=== PATIENT | female | born 1945 | race Caucasian/White ===

== ENCOUNTER 2016-05-15 12:37 | Inpatient (IN) | payer MEDICARE, OTHER ==
[~2016-05-15] VITALS: Ht 162.6 cm; Wt 83.5 kg
[2016-05-15] MEDS ORDERED: CEFTAROLINE FOSAMIL 600 MG VIAL (TEFLARO) As Ordered ONE (13:50)
[2016-05-15 14:01] LABS: BASO % 0.7 % (0.0-1.0); EOS # 0.3 K/mm3 (0.0-0.50); EOS % 4.1 % (0.0-3.0); LARGE UNSTAINED CELL # 0.1 K/mm3 (0.0-0.4); LARGE UNSTAINED CELL % 1.9 % (0.0-4.0); LYMPH # 1.9 K/mm3 (1.5-4.5); LYMPH % 24.7 % (24.0-44.0); MEAN CORPUSCULAR HEMOGLOBIN 29.6 pg (27.0-33.0); MEAN CORPUSCULAR HGB CONC 32.7 g/dl (32.0-36.5); MEAN CORPUSCULAR VOLUME 90.5 fl (80.0-96.0); MONO # 0.5 K/mm3 (0.0-0.8); MONO % 6.9 % (0.0-5.0); NEUTROPHILS # 4.6 K/mm3 (1.8-7.7); NEUTROPHILS % 61.7 % (36.0-66.0); PLATELET COUNT, AUTOMATED 213 k/mm3 (150-450); RED CELL DISTRIBUTION WIDTH 12.3 % (11.5-14.5); WHITE BLOOD COUNT 7.5 K/mm3 (4.0-10.0)
[2016-05-15] MEDS ORDERED: GLUCAGON FOR INJ 1 MG VIAL (J1610) SC PRN (14:15)
[2016-05-15] MEDS ORDERED: DEXTROSE 50% 50 ML SYRINGE IV PRN (14:15)
[2016-05-15] MEDS ORDERED: GLUCOSE 4 GM CHEW TABLET PO PRN (14:15)
[2016-05-15] MEDS ORDERED: ACETAMINOPHEN TAB 650MG DOSE (2X325MG) PO PRN (14:15)
[2016-05-15] MEDS ORDERED: CEFTAROLINE FOSAMIL 200 MG in D5W 50 ML IV SCH (14:15)
[2016-05-15 14:24] LABS: ANION GAP 9 MEQ/L (8-16); BLOOD UREA NITROGEN 23 MG/DL (7-18); CALCIUM LEVEL 8.7 MG/DL (8.8-10.2); CARBON DIOXIDE LEVEL 27 MEQ/L (21-32); CHLORIDE LEVEL 105 MEQ/L (98-107); CREATININE FOR GFR 0.83 MG/DL (0.55-1.02); GLOMERULAR FILTRATION RATE > 60.0 (>45); GLUCOSE, FASTING 179 MG/DL (80-110); POTASSIUM SERUM 3.9 MEQ/L (3.5-5.1); SODIUM LEVEL 141 MEQ/L (136-145)
[2016-05-15] MEDS ORDERED: VITA500T88 PO (14:26)
[2016-05-15] MEDS ORDERED: AMLO5TAB2 PO (14:26)
[2016-05-15] MEDS ORDERED: LISI-538 PO (14:26)
[2016-05-15] MEDS ORDERED: FOLI1TAB2 PO (14:26)
[2016-05-15] MEDS ORDERED: ACET-654 PO (14:26)
[2016-05-15] MEDS ORDERED: FERR325T3 PO (14:26)
[2016-05-15] MEDS ORDERED: MELA5TAB14 PO (14:26)
[2016-05-15] MEDS ORDERED: ASPI81TA85 PO (14:26)
[2016-05-15] MEDS ORDERED: INSULANT SC (14:26)
[2016-05-15] MEDS ORDERED: HUMA100I3 SC (14:29)
--- NOTE | 2016-05-15 16:30 | REP ---
Duplex extremity venous ultrasound: Right lower extremity. History: Deformity and swelling. Findings: The deep veins are anechoic and fully compressible from the groin to the popliteal fossa in the right lower extremity. Color flow imaging is homogeneous. Spectral Doppler interrogation demonstrates intact respiratory variation in flow and normal manual augmentation of flow. There is no evidence of deep vein thrombosis. Impression: Negative right lower extremity duplex venous ultrasound. No evidence of deep vein thrombosis. Signed by Hima Madsen MD 05/15/2016 04:21 P
--- NOTE | 2016-05-15 16:58 | EDDOCDS ---
Physician Documentation [facility] Name: Derrick Rodriguez Age: 70 yrs Sex: Female : 1945 Arrival Date: 05/15/2016 Time: 12:37 Bed MRI Private MD: NO PRIMARY PHYSICIAN, . Disposition: 05/15/16 13:51 Hospitalization ordered by Eric Benson for Inpatient Admission. Preliminary diagnosis is Cellulitis of right lower limb. - Bed requested for 5 Gentile. - Status is Inpatient Admission. jmk - Condition is Stable. - Problem is new. - Symptoms are unchanged. Historical: - Allergies: Latex (Rash); - Home Meds: 1. docusate sodium 100 mg Oral cap 2 times per day 2. Probiotic 3 billion cell oral cap daily 3. heparin (porcine) 5,000 unit/mL (1 mL) injection crtg 4. clindamycin iv three times a day 5. ciprofloxacin 400mg IV twice a day twice a day 6. amlodipine 5 mg Oral tab once daily 7. aspirin 81 mg Oral tab 1 tab once daily 8. ferrous sulfate 325 mg (65 mg iron) Oral TbEC daily 9. folic acid 1 mg Oral tab once daily 10. lisinopril 10 mg Oral tab 1 tab once daily 11. Lantus 100 unit/mL Sub-Q soln 30 unit 12. Vitamin C 500 mg Oral chew daily 13. Lasix 20 mg Oral tab once daily 14. Insulin: Novolin R Sub-Q 15. melatonin 5 mg Oral cap daily 16. Maalox 200-200 mg Oral chew 17. Tylenol 325 mg Oral tab every 3 hours - PMHx: Diabetes - NIDDM: uncontrolled; - PSHx: ; right ankle pins and screws removed. right elbow pin; - Social history: Smoking status: Patient states former smoker of tobacco. No barriers to communication noted, The patient speaks fluent Congolese. - Family history: Not pertinent. - : The pt / caregiver states he / she is not on anticoagulants. Home medication list is obtained from the patient. - Exposure Risk Screening:: None identified. Vital Signs: 05/15 12:39 BP 159 / 89; Pulse 89; Resp 18 S; Temp 97.3; Pulse Ox 98% on R/A; Weight 83.46 kg / 184 dd6 lbs (R); Height 5 ft. 4 in. (162.56 cm) (R); 16:52 BP 151 / 70; Pulse 86; Resp 16; Temp 98.7; Pulse Ox 99% on R/A; Pain 2/10; jmk 12:39 Body Mass Index 31.58 (83.46 kg, 162.56 cm) dd6 MDM: 13:36 IV Saline Lock ordered. br1 13:38 CBC with Diff Ordered. EDMS 13:38 BMP Ordered. EDMS 13:38 BED REQUEST+ADM ordered. EDMS 13:38 Ultrasound LE Unilateral R/O DVT Ordered. EDMS 13:41 MRI Screening Tool - Place on chart, inform RN ordered. br1 13:41 -Blood Culture (Adults Only), peripheral from different site, or from device/port/PICC br1 etc. if present ordered. 13:42 -Blood Culture Ordered. EDMS 13:42 ESR Ordered. EDMS 13:42 Ceftaroline Fosamil 600 mg IV at calculated rate once over 30 mins; reconstitute with br1 20mL NS or SW, then dilulte in 50mL of NS, D5W or LR ordered. 13:58 C REACTIVE PROTEIN QUANTITATIV Ordered. EDMS 14:07 -Blood Culture (Adults Only), peripheral from different site, or from device/port/PICC jmk etc. if present complete. 14:08 MRI Screening Tool - Place on chart, inform RN complete. kr3 14:16 Admission / Observation Status ordered. EDMS 14:17 CONSISTENT CARBOHYDRATES ordered. EDMS 14:18 PHYSICAL THERAPY EVAL & TREAT ordered. EDMS 14:29 CBC with Diff Reviewed. br1 14:29 BMP Reviewed. br1 14:29 C REACTIVE PROTEIN QUANTITATIV Reviewed. br1 14:50 Financial registration complete. mm15 14:50 [facility] Payment Agreement was scanned into [employer] and attached to record. mm15 14:52 MRI-Foot W/O FOL WITH Ordered. EDMS 16:[address] Ordered. EDMS Administered Medications: 14:08 Drug: Ceftaroline Fosamil 600 mg [ceftaroline fosamil 600 mg intravenous solution] liam Route: IV; Rate: calculated rate; Infused Over: 30 mins; Site: left hand; Signatures: Dispatcher [employer] EDMS Suresh RudolphRN Eladio French RN Iman Tai RN RN kr3 Jean Claude Espitia MD MD br1 Rhoda Vance RN RN rs3 [employer] mm15 The chart was reviewed and I authenticate all verbal orders and agree with the evaluation and treatment provided.Corrections: (The following items were deleted from the chart) 13:58 13:42 C REACTIVE PROTEIN QUANTITATIV+LAB ordered. EDMS EDMS 14:52 14:34 MRI FOOT WITH CONTRAST ordered. EDMS EDMS 16:03 13:42 MRI-Foot without contrast+MR ordered. EDMS EDMS Attachments: 14:50 [facility] Payment Agreement mm15 MTDD
--- NOTE | 2016-05-15 16:58 | EDDOCDS ---
Nurse's Notes [facility] Name: Derrick Rodriguez Age: 70 yrs Sex: Female : 1945 Arrival Date: 05/15/2016 Time: 12:37 Bed MRI Private MD: NO PRIMARY PHYSICIAN, . Diagnosis: Cellulitis of right lower limb Presentation: 05/15 12:55 Presenting complaint: Patient states: Was seen in [facility] for right foot rs3 infection/pain. Was seen by Ortho today. Dr. Matthieu Rizzo sent her to ER for admission. The patients lower extremity has been treated at [facility]. Adult Sepsis Screening: The patient does not have new or worsening altered mentation. Patient's respiratory rate is less than 22. Systolic blood pressure is greater than 100. Patient has a qSOFA score of 0- Negative Sepsis Screen. Suicide/Homicide risk assessment- the patient denies having any suicidal and/or homicidal ideations and does not present with any other emotional, behavioral or mental health complaints. 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 Transition of care: patient was not received from another setting of care. 12:55 Acuity: DIANDRA Level 3 rs3 12:55 Method Of Arrival: Wheelchair rs3 Triage Assessment: 13:06 General: Appears in no apparent distress. Pain: Location: right foot. Musculoskeletal: rs3 Reports Pain is 8 out of 10 on a pain scale. Historical: - Allergies: Latex (Rash); - Home Meds: 1. docusate sodium 100 mg Oral cap 2 times per day 2. Probiotic 3 billion cell oral cap daily 3. heparin (porcine) 5,000 unit/mL (1 mL) injection crtg 4. clindamycin iv three times a day 5. ciprofloxacin 400mg IV twice a day twice a day 6. amlodipine 5 mg Oral tab once daily 7. aspirin 81 mg Oral tab 1 tab once daily 8. ferrous sulfate 325 mg (65 mg iron) Oral TbEC daily 9. folic acid 1 mg Oral tab once daily 10. lisinopril 10 mg Oral tab 1 tab once daily 11. Lantus 100 unit/mL Sub-Q soln 30 unit 12. Vitamin C 500 mg Oral chew daily 13. Lasix 20 mg Oral tab once daily 14. Insulin: Novolin R Sub-Q 15. melatonin 5 mg Oral cap daily 16. Maalox 200-200 mg Oral chew 17. Tylenol 325 mg Oral tab every 3 hours - PMHx: Diabetes - NIDDM: uncontrolled; - PSHx: ; right ankle pins and screws removed. right elbow pin; - Social history: Smoking status: Patient states former smoker of tobacco. No barriers to communication noted, The patient speaks fluent Tajik. - Family history: Not pertinent. - : The pt / caregiver states he / she is not on anticoagulants. Home medication list is obtained from the patient. - Exposure Risk Screening:: None identified. Assessment: 13:17 General: Appears in no apparent distress, comfortable, Behavior is reports feeling very kr3 frustrated due to process. Patient states she is here for admission and 'no one knows anything'.. Pain: Denies pain. Respiratory: Respiratory effort is even, unlabored. 13:52 Reassessment: feeling more calm. Dr benson in speaking with patient. kr3 15:38 General: Appears right foot swollen with diffuse redness. states little change in jmk overall appearance with recent admission at [facility].. 16:52 General: Appears Improved demeanor. Now is receptive to course of care. Incontinent of jmk small amount of formed stool. cleansed and repositioned. blistered area to posterior right foot that is without drainage. diffuse redness and swelling noted. 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 States pain is " not that much 2/10. sl remains intact.. Vital Signs: 12:39 BP 159 / 89; Pulse 89; Resp 18 S; Temp 97.3; Pulse Ox 98% on R/A; Weight 83.46 kg (R); dd6 Height 5 ft. 4 in. (162.56 cm) (R); 16:52 BP 151 / 70; Pulse 86; Resp 16; Temp 98.7; Pulse Ox 99% on R/A; Pain 2/10; jmk 12:39 Body Mass Index 31.58 (83.46 kg, 162.56 cm) dd6 Vitals: 12:39 Log In Time: May 15, 2016 at 12:38. dd6 ED Course: 12:38 Patient visited by Jadiel Cruz PCA. dd6 12:38 NO PRIMARY PHYSICIAN, . is Private Physician. dd6 12:38 Patient moved to Waiting dd6 12:39 Patient moved to Pre RCE dd6 12:59 Triage Initiated rs3 13:08 Patient moved to I9 / 22 rs3 13:17 Patient visited by Iman Monsivais RN. kr3 13:21 Jean Claude Espitia MD is Attending Physician. br1 13:36 Patient visited by Jean Claude Espitia MD. br1 13:50 Patient moved to Ultrasound am10 13:51 Eric Benson is Hospitalizing Provider. br1 13:51 Patient moved to I9 / 22 am10 13:51 Patient moved to Ultrasound am10 13:51 ESR Sent. kr3 13:51 BMP Sent. kr3 13:51 CBC with Diff Sent. kr3 13:51 Inserted saline lock: 20 gauge in left hand and blood collected. The patient tolerated kr3 the procedure well. 13:53 Patient moved to I9 / 22 am10 14:07 C REACTIVE PROTEIN QUANTITATIV Sent. jmk 14:47 Patient moved to MRI dem1 14:50 [facility] Payment Agreement was scanned into [employer] and attached to record. mm15 16:52 The patient / caregiver is instructed regarding the plan of care and ED course. jmk 16:52 No procedures done that require assistance. liam Administered Medications: 14:08 Drug: Ceftaroline Fosamil 600 mg [ceftaroline fosamil 600 mg intravenous solution] liam Route: IV; Rate: calculated rate; Infused Over: 30 mins; Site: left hand; Order Results: Lab Order: CBC with Diff; SPEC'M 05/15/16 13:46 Test: WHITE BLOOD COUNT; Value: 7.5; Range: 4.0-10.0; Units: K/mm3; Status: F Test: RED BLOOD COUNT; Value: 3.83; Range: 4.00-5.40; Abnormal: Below low normal; Units: M/mm3; Status: F Test: HEMOGLOBIN; Value: 11.3; Range: 12.0-16.0; Abnormal: Below low normal; Units: g/dl; Status: F Test: HEMATOCRIT; Value: 34.7; Range: 36.0-47.0; Abnormal: Below low normal; Units: %; Status: F Test: MEAN CORPUSCULAR VOLUME; Value: 90.5; Range: 80.0-96.0; Units: fl; Status: F Test: MEAN CORPUSCULAR HEMOGLOBIN; Value: 29.6; Range: 27.0-33.0; Units: pg; Status: F Test: MEAN CORPUSCULAR HGB CONC; Value: 32.7; Range: 32.0-36.5; Units: g/dl; Status: F Test: RED CELL DISTRIBUTION WIDTH; Value: 12.3; Range: 11.5-14.5; Units: %; Status: F Test: PLATELET COUNT, AUTOMATED; Value: 213; Range: 150-450; Units: k/mm3; Status: F Test: NEUTROPHILS %; Value: 61.7; Range: 36.0-66.0; Units: %; Status: F Test: LYMPH %; Value: 24.7; Range: 24.0-44.0; Units: %; Status: F Test: MONO %; Value: 6.9; Range: 0.0-5.0; Abnormal: Above high normal; Units: %; Status: F Test: EOS %; Value: 4.1; Range: 0.0-3.0; Abnormal: Above high normal; Units: %; Status: F Test: BASO %; Value: 0.7; Range: 0.0-1.0; Units: %; Status: F Test: LARGE UNSTAINED CELL %; Value: 1.9; Range: 0.0-4.0; Units: %; Status: F Test: NEUTROPHILS #; Value: 4.6; Range: 1.8-7.7; Units: K/mm3; Status: F Test: LYMPH #; Value: 1.9; Range: 1.5-4.5; Units: K/mm3; Status: F Test: MONO #; Value: 0.5; Range: 0.0-0.8; Units: K/mm3; Status: F Test: EOS #; Value: 0.3; Range: 0.0-0.50; Units: K/mm3; Status: F Test: BASO #; Value: 0.0; Range: 0.0-0.2; Units: K/mm3; Status: F Test: LARGE UNSTAINED CELL #; Value: 0.1; Range: 0.0-0.4; Units: K/mm3; Status: F Lab Order: [facility]; SPEC'M 05/15/16 13:46 Test: GLUCOSE, FASTING; Value: 179; Range: 80-110; Abnormal: Above high normal; Units: MG/DL; Status: F Test: BLOOD UREA NITROGEN; Value: 23; Range: 7-18; Abnormal: Above high normal; Units: MG/DL; Status: F Test: CREATININE FOR GFR; Value: 0.83; Range: 0.55-1.02; Units: MG/DL; Status: F Test: GLOMERULAR FILTRATION RATE; Value: > 60.0; Range: >45; Status: F Test: SODIUM LEVEL; Value: 141; Range: 136-145; Units: MEQ/L; Status: F Test: POTASSIUM SERUM; Value: 3.9; Range: 3.5-5.1; Units: MEQ/L; Status: F Test: CHLORIDE LEVEL; Value: 105; Range: 98-107; Units: MEQ/L; Status: F Test: CARBON DIOXIDE LEVEL; Value: 27; Range: 21-32; Units: MEQ/L; Status: F Test: ANION GAP; Value: 9; Range: 8-16; Units: MEQ/L; Status: F Test: CALCIUM LEVEL; Value: 8.7; Range: 8.8-10.2; Abnormal: Below low normal; Units: MG/DL; Status: F Test Note: ; Units are mL/min/1.73 m2 Chronic Kidney Disease Staging per NKF: Stage I & II GFR >=60 Normal to Mildly Decreased Stage III GFR 30-59 Moderately Decreased Stage IV GFR 15-29 Severely Decreased Stage V GFR <15 Very Little GFR Left ESRD GFR <15 on 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 br1 16:52 Discharge Assessment: Patient awake, alert and oriented x 3. No cognitive and/or jmk functional deficits noted. Patient verbalized understanding of disposition instructions. patient administered narcotics - no. The following High Risk Discharge criteria are identified: None. Admitted to Med/Surg via stretcher, with chart. Condition: good. MRI Study completed. Property :Personal belongings accompany Pt. 16:57 Patient left the ED. liam Signatures: Suresh RudolphRN BRIDGET barrettk Iman Monsivais RN RN kr3 Delores Stuart am10 Jean Claude Espitia MD MD br1 Jadiel Cruz, CARE TEAM ASSISTANT CARE TEAM ASSISTANT dd6 Rhoda Vance RN RN rs3 Maximo Meredith dem1 [employer] mm15 Corrections: (The following items were deleted from the chart) 13:58 13:51 C REACTIVE PROTEIN QUANTITATIV+LAB sent. kr3 EDMS 15:41 15:38 General: Appears right foot swollen with diffuse redness. states little change in jmk overall appearance with recent admission at [facility].. liam MTDD
[2016-05-15 17:00] VITALS: BP 188/60
[2016-05-15] MEDS: HumaLOG INSULIN (NovoLOG) PER UNIT SC SCH ×2 (17:30→19:35)
--- NOTE | 2016-05-15 18:57 | REP ---
MRI study of the right foot without and with IV gadolinium: History: Question osteomyelitis of the foot. Redness and swelling of the right foot. No comparison radiographs available. Technique: Sagittal, axial and coronal imaging planes utilized. T1, proton density T2-weighted scans are obtained in the usual fashion with without fat saturation. Gadolinium enhancement dose: 15 mL of intravenous ProHance. MRI findings: There is a collapsed fracture through the calcaneus with some rotational deformity of the posterior fragment. The margins of the calcaneal fracture appears sharply circumscribed and perhaps sclerotic suggesting a subacute or chronic fracture with nonunion. There is fluid between the fragments and there is enhancement the edges of this irregular fluid collection on post gadolinium enhanced images. There is intraosseous enhancement on both sides of the calcaneal fracture and I cannot exclude calcaneal osteomyelitis. 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 A moderate sized ankle joint effusion is seen. There are very superficial fluid collections at the posterior aspect of the calcaneus and just above the level of the ankle joint posteriorly and laterally. By history these are vesicular intradermal lesions which apparently contain fluid. Diffuse skin thickening is seen in this region. Cortical and medullary bone signal intensity are otherwise normal. No other evidence of abscess. Impression: Collapsed fracture through the calcaneus with intervening fluid collection and soft tissue enhancement in the periphery of this fluid collection. There is intraosseous enhancement of the calcaneus and I cannot exclude calcaneal osteomyelitis. The calcaneal fracture appears to be a subacute or chronic. 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 Correlation with radiographs and possibly CT scanning may be helpful. Signed by Hima Madsen MD 05/16/2016 09:52 A
--- NOTE | 2016-05-15 19:11 | HPE ---
DATE OF ADMISSION: 05/15/2016 PRIMARY CARE PROVIDER: The patient is trying to establish with Dr. Bush; currently has no primary care provider. She sees Dr. Tucker for orthopedics. REASON FOR ADMISSION: Right ankle cellulitis. HISTORY OF THE PRESENT ILLNESS: The patient is a 70-year-old female with a past medical history significant for diabetes, hypertension, recent right ankle cellulitis that was treated at [facility]. The patient is a poor historian. Most of the history is obtained from the medical record and Dr. Tucker who had seen the patient early today and referred her to the emergency room. The patient was recently discharged from [facility] after she was treated for right foot cellulitis. She was found to have right ankle calcaneus fracture and was referred to Dr. Tucker after discharge from the hospital. He saw the patient today and was concerned about her right ankle with cellulitis and abscess formation, and referred her to the emergency room for workup to rule out osteomyelitis. She states she has been having memory problems and was supposed to be admitted at [facility]. She recently moved to the area since her brother and [id number] live here. She was going to be living with them for awhile until she gets a bed at the [facility]. Upon my exam, the patient denied any fevers or chills. Denied any chest pain, shortness of breath, was only complaining of right ankle pain and tenderness, as well as swelling. She could not remember when it started, but she knew that she was in the hospital for that infection. Denies any abdominal pain, nausea, vomiting or diarrhea. Denied any neurological deficits other than memory problems. REVIEW OF SYSTEMS: Twelve-point review of systems was obtained, all of which was negative except for those mentioned above. PAST MEDICAL HISTORY: Per record, significant for: Diabetes. Hypertension. Recent cellulitis but was treated with clindamycin and Cipro. PAST SURGICAL HISTORY: section. Right ankle pins and screws removed. SOCIAL HISTORY: The patient currently moved to the area where her brother and [id number] live. She was supposed to move into [facility] after discharge from [facility]. ALLERGIES: LATEX, reaction rash. HOME MEDICATIONS INCLUDE: - Tylenol 325 mg, takes two pills every 4 hours as needed for pain - amlodipine 5 mg by mouth daily - vitamin C 500 mg by mouth daily - aspirin 81 mg by mouth daily - iron 325 mg by mouth daily - folic acid 1 mg by mouth daily - Lantus 30 units at night - Humalog sliding scale before food and nightly - melatonin 5 mg at bedtime - lisinopril 20 mg by mouth daily FAMILY HISTORY: Noncontributory. PHYSICAL FINDINGS: VITAL SIGNS: Blood pressure 188/60, temperature 98.3, pulse 86, respiratory rate 18, pulse oximetry 96% on room air. HEENT: Pupils equal, round and reactive to light and accommodation. NECK: Supple. No jugular venous distention (JVD). LUNGS: Clear bilaterally. ABDOMEN: Soft, nontender, nondistended. EXTREMITIES: The patient appears to have a large right ankle cellulitis with abscess formation, partially draining with some swelling and erythema. NEUROLOGIC: Cranial nerves grossly intact. LABORATORY FINDINGS: WBC 7.5, hemoglobin 11.3, hematocrit 34.7, platelet count 213. Sodium 141, potassium 3.9, chloride 105, BUN 23, creatinine 0.83, C-reactive protein 6.79. Sedimentation rate 126. Ultrasound of her lower extremity was negative for deep vein thrombosis (DVT). MRI official read is still pending. ASSESSMENT AND PLAN: 1. Right ankle cellulitis with abscess formation. Cannot rule out osteomyelitis. We will start the patient on ceftaroline IV twice a day. The patient was on clindamycin, Cipro recently at [facility]. We will obtain wound cultures. The patient will be evaluated by orthopedics in the morning. MRI of the foot pending to rule out osteomyelitis. Activity per orthopedics. Non-weightbearing on the right until brace is ordered for patient. 2. History of hypertension. Will resume the patient's home medication. 3. Questionable right ankle calcaneus fracture. We will consult Dr. Tucker who had seen the patient earlier today in the office. Per his report, the patient does not need emergent surgery at this time. 4. History of diabetes, insulin-dependent. We will continue the patient's Lantus and insulin sliding scale before food and nightly. We will start the patient on a consistent carbohydrate diet. 5. Deep vein thrombosis (DVT) prophylaxis. Sequential compression devices (SCDs) while in bed.
--- NOTE | 2016-05-15 19:28 | CR ---
DATE OF CONSULTATION: 05/15/2015 REASON FOR CONSULTATION: Right foot redness and swelling. REQUESTING PHYSICIAN: Dr. Eric Benson, admitting hospitalist. HISTORY: She is a 70-year-old female seen in my office today as an outpatient visit, from an inpatient status at the [facility], found to have redness and swelling of the right ankle, with a radiograph showing a nondisplaced tibial fracture, some diffuse calcifications posteriorly of the right ankle, and some mid-foot collapse consistent with a Charcot arthropathy. She has a very high C-reactive protein (CRP) that has been rising but no fevers. 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 She does not remember any fall or injury to this ankle. She was initially admitted at [facility] on 04/22 for presumed congestive heart failure/pneumonia. Also was noted to have some cellulitis and swelling of both legs, right worse than left. Initially had an oral course of Keflex up until 05/01, and then on 05/10, it was noted that she had increasing redness and swelling of that right ankle without known injury. Ultrasound workup revealed no abscess. X-rays showed question of nondisplaced distal fibula fracture and tumoral calcinosis posteriorly about the ankle. It is because of that x-ray finding that she is sent to the orthopedic office as an outpatient to get this looked after. She had a CRP on 04/26 of , with the normal being 0-5, and then a repeat CRP on 05/10 of 57. She was on 05/10 started on intravenous (IV) Rocephin and vancomycin and then was switched to clindamycin and ciprofloxacin, and then yesterday, they felt that she was being clinically improved enough to go onto oral antibiotics and was planned for discharge to the [facility] facility, but because of the appearance of her ankle and her laboratory studies, it was felt she needs further evaluation and is being transferred here to [facility]. PAST MEDICAL HISTORY: Significant for insulin-dependent diabetes, and by her description of her symptoms, it appears that she has chronic diabetic neuropathy. Her other past medical history is high blood pressure, anxiety, history of some depressive episodes with suicidal ideations as of several months ago that apparently is not active. Also has a history of lactose intolerance. PAST SURGICAL HISTORY: She has had partial foot amputation on the left side as described. Has had section times two. Has had a breast biopsy of the left breast which was benign. She had a partial hysterectomy and apparently according to the record, Tammy Serna's 01/22/2014, has a history of open reduction, internal fixation (ORIF) of the right ankle, and ORIF of the right elbow. 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 She is from her . She has family members here locally. Both parents are and had diabetes and congestive heart failure, and she has a brother who has kidney cancer, a sister with diabetes, another brother with atrial fibrillation. Health survey and review of systems otherwise is noted in the medical records from the [facility]. MEDICATIONS: Her present medications are probiotic, subcutaneous heparin, docusate sodium, clindamycin, ciprofloxacin, amlodipine, baby aspirin, iron, folate, lisinopril, Lantus insulin, Lasix, NovoLog insulin, melatonin, Maalox, Tylenol as needed. She quit smoking several years ago. PHYSICAL EXAMINATION: When I examine her, alert and oriented female otherwise. Her vital signs here in the emergency room, blood pressure 159/89, pulse 89, respirations 18, temperature 97.3, oxygen saturation 98% on room air. Weight 83.46 kg. Her right lower extremity had a warm, swollen, red erythematous and somewhat indurated right ankle area, with no tenderness, but had a good dorsalis pedis pulse. She could dorsiflex and plantar flex her ankle with marked irritability, but she was basically insensate to light touch to all her toes on both feet with palpable pulses on the left foot. Left foot had great toe partial amputation, specifically the great toe. There is no other evidence of any infection of her upper extremities. LABORATORY DATA: Her white blood count on admission to [facility] was 7.5 with a hematocrit of 34.7. Glucose 179, BUN 23, creatinine 0.83. Sodium 141, potassium 3.9, chloride 105, bicarbonate 27, calcium 8.7. Her sed rate was 126. CRP 6.79. IMAGING: Radiographs as described taken at [facility], showing nondisplaced distal tibial fracture, some calcifications in the posterior aspect of the ankle and some mid-foot degenerative changes. IMPRESSION: This is a picture of Charcot arthropathy, but we need to evaluate and rule out osteomyelitis, and needs further evaluation and treatment. I talked to the hospitalist about this and would recommend an MRI scan and plain film xrays of her foot and ankle, possible three-phase bone scan and we may need also to get the help of Dr. Cesar from infectious disease to help us with the treatment recommendations for IV antibiotics if indeed this workup is consistent with osteomyelitis. Otherwise, in terms of her ankle, I would recommend nonweightbearing for the time being, keep it elevated, and request an evaluation from the electronic parts salesperson for a formal patellar tendon bearing right ankle-foot orthosis to unweight her foot with ambulation for half-way management of her diabetic arthropathy of her foot and ankle. We will follow her along once this workup has been completed. FREDA
[2016-05-15 19:30] VITALS: BP 144/69
[2016-05-15] MEDS: LEVEMIR (INSULIN DETEMIR) 1 UNITS/0.01ML SC SCH (21:00)
[2016-05-16] MEDS: CEFTAROLINE FOSAMIL 600 MG in D5W MINI-BAG PLUS 50 ML IV SCH ×2 (01:53→16:08)
[2016-05-16 06:00] VITALS: BP 151/72
[2016-05-16 06:58] LABS: BASO # 0.1 K/mm3 (0.0-0.2); BASO % 1.2 % (0.0-1.0); EOS # 0.3 K/mm3 (0.0-0.50); EOS % 4.4 % (0.0-3.0); LARGE UNSTAINED CELL # 0.1 K/mm3 (0.0-0.4); LARGE UNSTAINED CELL % 1.5 % (0.0-4.0); LYMPH # 1.9 K/mm3 (1.5-4.5); LYMPH % 25.7 % (24.0-44.0); MEAN CORPUSCULAR VOLUME 90.6 fl (80.0-96.0); MONO # 0.5 K/mm3 (0.0-0.8); NEUTROPHILS # 4.3 K/mm3 (1.8-7.7); NEUTROPHILS % 60.2 % (36.0-66.0); PLATELET COUNT, AUTOMATED 199 k/mm3 (150-450); RED CELL DISTRIBUTION WIDTH 13.3 % (11.5-14.5); WHITE BLOOD COUNT 7.1 K/mm3 (4.0-10.0)
[2016-05-16 07:07] LABS: ALBUMIN 2.4 GM/DL (3.2-5.2); ALBUMIN/GLOBULIN RATIO 0.65 (1.00-1.93); ALKALINE PHOSPHATASE 148 U/L (45-117); ALT/SGPT 26 U/L (12-78); ANION GAP 6 MEQ/L (8-16); AST/SGOT 18 U/L (15-37); BILIRUBIN,TOTAL 0.2 MG/DL (0.2-1.0); BLOOD UREA NITROGEN 21 MG/DL (7-18); CALCIUM LEVEL 8.8 MG/DL (8.8-10.2); CARBON DIOXIDE LEVEL 28 MEQ/L (21-32); CHLORIDE LEVEL 111 MEQ/L (98-107); CREATININE FOR GFR 0.57 MG/DL (0.55-1.02); GLOMERULAR FILTRATION RATE > 60.0 (>45); GLUCOSE, FASTING 60 MG/DL (80-110); MAGNESIUM LEVEL 2.3 MG/DL (1.8-2.4); POTASSIUM SERUM 3.7 MEQ/L (3.5-5.1); SODIUM LEVEL 145 MEQ/L (136-145); TOTAL PROTEIN 6.1 GM/DL (6.4-8.2)
[2016-05-16] MEDS ORDERED: LIDOCAINE 1% MDV 20ML VIAL As Ordered ONE (07:26)
[2016-05-16] MEDS: HumaLOG INSULIN (NovoLOG) PER UNIT SC SCH ×4 (07:30→20:32)
[2016-05-16 07:46] LABS: ERYTHROCYTE SEDIMENTATION RATE 70 mm/hr (0-30)
[2016-05-16] MEDS: ASPIRIN 81 MG ENTERIC TAB PO SCH (08:17)
[2016-05-16] MEDS: FOLIC ACID 1 MG TAB PO SCH (08:17)
[2016-05-16] MEDS: FERROUS SULFATE 325MG TAB PO SCH (08:18)
[2016-05-16] MEDS: amLODIPine 5 MG TAB PO SCH (08:18)
[2016-05-16] MEDS: LISINOPRIL 20 MG TAB PO SCH (08:18)
[2016-05-16 08:31] LABS: RBC ADVIA BF 0.64; RBC CALC. BF 640000 (< 10mm3 cells/uL); WBC ADVIA BF 7.4; WBC CALC. BF 7400 cells/uL (0-20)
[2016-05-16 08:32] LABS: URIC ACID, BODY FLUID 6.3 MG/DL (NOT ESTABLISHED)
[2016-05-16 08:37] LABS: BF DIFF IF INDICATED? YES (NO); SYNOVIAL FLUID COLOR RED (YELLOW)
[2016-05-16 08:51] LABS: CC BF DIFF EXAM UNSPUN; CRYSTALS, BODY FLUID NONE SEEN (NONE SEEN); HCT SOURCE RT ANKLE
--- NOTE | 2016-05-16 12:56 | IPN ---
DATE: 05/16/2016 70-year-old female seen at bedside. No overnight issues reported. No shortness of breath, productive sputum, cough, hemoptysis. No chest pain. No nausea, vomiting. She says that her leg pain is better today. OBJECTIVE: Temperature 98.7, pulse 76, respiratory rate 18, blood pressure 144/69, SpO2 is 96% on room air. GENERAL: The patient appears to be in no acute distress. She is alert, pleasant. HEENT: Unremarkable. LUNGS: Clear. HEART: Regular rate and rhythm. ABDOMEN: Soft. EXTREMITIES: No edema. No calf tenderness. Examination of the right leg does show some erythema. White count 7.1, hemoglobin 10.8, platelets are 199,000, sodium 145, potassium 3.7, chloride 111, bicarbonate 28, anion gap 6, BUN is 21, creatinine 0.57, glucose is 60, AST 18, ALT 26, alkaline phosphatase 148. C-reactive protein is 4.45 down from 6.79, albumin 2.4. Ankle aspiration is obtained by orthopedics, those results are pending as well as the wound culture and body fluid culture from the wound site. Blood culture pending. MRI of the foot does reveal a collapse fracture of calcaneus with intervening fluid collection and soft tissue enhancement in the periphery of the fluid collection. There is intraosseous enhancement of the calcaneus. Could not exclude calcaneal osteomyelitis. The calcaneal fracture appears to be subacute or chronic, also joint effusion was noted with mid foot neuropathic arthropathy. ASSESSMENT/PLAN: 1. Right ankle cellulitis with fluid collection and possible osteomyelitis of the calcaneus. Appreciate orthopedics input. Will continue with IV Teflaro through the weekend. Her CRP does appear to be trending downward. Will continue per their recommendations of the patient being non-weightbearing and will likely need to consult Dr. Cesar on Wednesday when she is back. In the meantime will continue to trend her labs, see how her CRP is trending downward, await culture results, likely she will need 6-8 weeks of IV antibiotics and on Wednesday will plan on touching base with Dr. Cesar and most likely a PICC line insertion. 2. History of hypertension. Continue home medications. 3. Subacute versus chronic calcaneal fracture. Appreciate Dr. Tucker's input. 4. Diabetes. We will continue with fingerstick blood sugars and insulin sliding scale and Lantus with consistent carbohydrate diet. 5. Deep venous thrombosis (DVT) prophylaxis. I am going to add on subcutaneous heparin.
[2016-05-16 14:00] VITALS: BP 177/74
--- NOTE | 2016-05-16 14:51 | RO ---
DATE OF PROCEDURE: 05/16/2016 PREOPERATIVE DIAGNOSIS: Right ankle effusion, rule out septic joint. POSTOPERATIVE DIAGNOSIS: Right ankle effusion, rule out septic joint. PROCEDURE: Right ankle aspiration. SURGEON: Kristen Tucker MD ACCOUNTING BOOKKEEPER: ANESTHESIA: None. COMPLICATIONS: None. FINDINGS: We aspirated about 8 mL of blood-tinged yellowish fluid, sent in a green-top, red-top tube for joint fluid analysis, gram stain, culture and sensitivity. DESCRIPTION OF PROCEDURE: After appropriate time-out and consent had been obtained, the ankle area was prepped with a Betadine swab. Then, I used a 10 mL syringe with an 18-gauge needle to aspirate anterolaterally into the ankle joint, and I was able to aspirate about 8 mL of bloody stained serous joint fluid. I placed it in a green-top, red-top tube. Then, a band-aid was applied. She tolerated it well. There were no complications.
[2016-05-16] MEDS: HEPARIN SOD (PORCINE) 5000 UNITS/ML VIAL SQ SCH ×2 (16:08→20:43)
[2016-05-16] MEDS: LEVEMIR (INSULIN DETEMIR) 1 UNITS/0.01ML SC SCH (20:43)
[2016-05-16 22:00] VITALS: BP 139/66
--- NOTE | 2016-05-16 22:57 | REP ---
Four view right foot series 05/16/2016 Indication: Check position Comparison made with right ankle series also performed today Advanced osteoarthritic changes are noted in the calcaneus with a impacted appearance compatible with fractures and/or Charcot's joint. There is mild dorsal displacement of the posterior calcaneus. The remainder of the right foot is intact. There is diffuse osteopenia. Impression: impacted appearance and compression of the calcaneus which may be secondary to prior trauma/fracture or Charcot's joint. Clinical follow-up recommended. Signed by Angelina Darnell MD 05/16/2016 10:48 P
--- NOTE | 2016-05-16 22:59 | REP ---
AP and lateral views of the right ankle 05/16/16 Indication: Check position Impacted appearance with fragmentation is seen within the anterior plantar aspect of the calcaneus, secondary to prior trauma or Charcot's joint. There is extensive hypertrophic bone formation. There is generalized soft tissue swelling, moderate, about the right ankle, most pronounced laterally. Impression: Depressed fragmented appearance of the plantar calcaneus as can be seen with Charcot's joint or possibly sequela of prior trauma Signed by Angelina Darnell MD 05/16/2016 10:50 P
[2016-05-17] MEDS: CEFTAROLINE FOSAMIL 600 MG in D5W MINI-BAG PLUS 50 ML IV SCH ×2 (01:27→16:29)
[2016-05-17] MEDS: HEPARIN SOD (PORCINE) 5000 UNITS/ML VIAL SQ SCH ×3 (05:41→20:13)
[2016-05-17 06:00] VITALS: BP 154/73
[2016-05-17 06:55] LABS: BASO % 0.7 % (0.0-1.0); EOS # 0.2 K/mm3 (0.0-0.50); LARGE UNSTAINED CELL # 0.1 K/mm3 (0.0-0.4); LARGE UNSTAINED CELL % 2.4 % (0.0-4.0); LYMPH # 1.8 K/mm3 (1.5-4.5); LYMPH % 29.9 % (24.0-44.0); MEAN CORPUSCULAR HEMOGLOBIN 29.3 pg (27.0-33.0); MEAN CORPUSCULAR HGB CONC 32.5 g/dl (32.0-36.5); MONO # 0.4 K/mm3 (0.0-0.8); MONO % 6.9 % (0.0-5.0); NEUTROPHILS # 3.3 K/mm3 (1.8-7.7); NEUTROPHILS % 56.1 % (36.0-66.0); PLATELET COUNT, AUTOMATED 208 k/mm3 (150-450); RED CELL DISTRIBUTION WIDTH 12.6 % (11.5-14.5); WHITE BLOOD COUNT 5.9 K/mm3 (4.0-10.0)
[2016-05-17 06:59] LABS: ALBUMIN 2.2 GM/DL (3.2-5.2); ALBUMIN/GLOBULIN RATIO 0.63 (1.00-1.93); ALKALINE PHOSPHATASE 143 U/L (45-117); ALT/SGPT 22 U/L (12-78); ANION GAP 6 MEQ/L (8-16); AST/SGOT 14 U/L (15-37); BILIRUBIN,TOTAL 0.2 MG/DL (0.2-1.0); BLOOD UREA NITROGEN 16 MG/DL (7-18); CALCIUM LEVEL 8.3 MG/DL (8.8-10.2); CARBON DIOXIDE LEVEL 29 MEQ/L (21-32); CHLORIDE LEVEL 109 MEQ/L (98-107); CREATININE FOR GFR 0.74 MG/DL (0.55-1.02); GLOMERULAR FILTRATION RATE > 60.0 (>45); GLUCOSE, FASTING 98 MG/DL (80-110); MAGNESIUM LEVEL 2.3 MG/DL (1.8-2.4); POTASSIUM SERUM 3.6 MEQ/L (3.5-5.1); SODIUM LEVEL 144 MEQ/L (136-145); TOTAL PROTEIN 5.7 GM/DL (6.4-8.2)
[2016-05-17] MEDS: HumaLOG INSULIN (NovoLOG) PER UNIT SC SCH ×4 (07:30→20:14)
[2016-05-17] MEDS: amLODIPine 5 MG TAB PO SCH (08:07)
[2016-05-17] MEDS: FERROUS SULFATE 325MG TAB PO SCH (08:07)
[2016-05-17] MEDS: LISINOPRIL 20 MG TAB PO SCH (08:07)
[2016-05-17] MEDS: FOLIC ACID 1 MG TAB PO SCH (08:07)
[2016-05-17] MEDS: ASPIRIN 81 MG ENTERIC TAB PO SCH (08:07)
--- NOTE | 2016-05-17 08:18 | IPNPDOC ---
Assessment/Plan Date Seen The patient was seen on 05/17/16. Problems Problems: (1) Cellulitis of right foot Status: Acute Problem Text: chronic charcot foot with chronic fracture; s/p aspiration by Dr. Ryan on 05/16 to rule out septic joint; continue teflaro; imaging cannot rule out osteo; discussed with Dr. Ryan, will plan to consult Dr. Cesar tomorrow for opinion regarding osteo; blood cx negative at 24H; wound and joint cultures pending; CRP trending down (2) HTN (hypertension) Status: Chronic Problem Text: continue home ACEI; increase norvasc to 10mg daily given elevated BPs (3) Diabetes mellitus Status: Chronic Problem Text: type 2; continue home nightly levemir 30u; SSI while in house Plan / VTE VTE Prophylaxis Ordered?: Yes (heparin) Subjective Review of Systems CC/HPI The patient is a 70-year-old female admitted with a reason for visit of Cellulitis Of Right Foot. Events since last encounter worried about what the boot on her foot and the plan for her foot Pulmonary: Denies: Dyspnea Cardiovascular: Denies: Chest Pain, Palpitations Gastrointestinal: Denies: Nausea Objective Physical Examination General Exam: Positive: Alert, Cooperative, No Acute Distress Eye Exam: Positive: EOMI Neck Exam: Positive: Supple Chest Exam: Positive: Clear to auscultation, Normal air movement Heart Exam: Positive: Rate Normal, Regular Rhythm Abdomen Exam: Positive: Soft, Negative: Tenderness Extremity Exam: Positive: Other (right foot in boot) Neuro Exam: Positive: Normal Speech Psych Exam: Positive: Anxiety Vital Signs/I&O Vital Signs Date Time Temp Pulse Resp B/P Pulse Ox O2 Delivery O2 Flow Rate FiO2 05/17/16 06:00 97.6 77 18 154/73 96 Room Air I&O- Last 24 Hours up to 6 AM 05/17/16 06:00 Intake Total 1260 ml Output Total 0 ml Balance 1260 ml Laboratory Data Labs 24H Laboratory Tests 2 05/16/16 11:27: Bedside Glucose (Misc Panel) 130H 05/16/16 17:06: Bedside Glucose (Misc Panel) 166H 05/16/16 19:15: Bedside Glucose (Misc Panel) 201H 05/17/16 06:27: White Blood Count 5.9, Red Blood Count 3.45L, Hemoglobin 10.1L, Hematocrit 31.0L , Mean Corpuscular Volume 90.0, Mean Corpuscular Hemoglobin 29.3, Mean Corpuscular Hemoglobin Concent 32.5, Red Cell Distribution Width 12.6, Platelet Count 208, Neutrophils (%) (Auto) 56.1, Lymphocytes (%) (Auto) 29.9, Monocytes ( %) (Auto) 6.9H, Eosinophils (%) (Auto) 4.0H, Basophils (%) (Auto) 0.7, Neutrophils # (Auto) 3.3, Lymphocytes # (Auto) 1.8, Monocytes # (Auto) 0.4, Eosinophils # (Auto) 0.2, Basophils # (Auto) 0.0, Large Unclassified Cells # 0.1 , Large Unclassified Cells % 2.4 05/17/16 06:28: Blood Urea Nitrogen 16, Creatinine 0.74, Sodium Level 144, Potassium Level 3.6, Chloride Level 109H, Carbon Dioxide Level 29, Calcium Level 8.3L, Aspartate Amino Transf (AST/SGOT) 14L, Alanine Aminotransferase (ALT/SGPT) 22, Alkaline Phosphatase 143H, Total Bilirubin 0.2, Total Protein 5.7L, Albumin 2.2L, Albumin /Globulin Ratio 0.63L, Anion Gap 6L, C-Reactive Protein, Quantitative 2.07H, Glomerular Filtration Rate > 60.0, Magnesium Level 2.3 CBC/BMP Laboratory Tests 05/17/16 06:27 Red Blood Count 3.45 L, Mean Corpuscular Volume 90.0, Mean Corpuscular Hemoglobin 29.3, Mean Corpuscular Hemoglobin Concent 32.5, Red Cell Distribution Width 12.6, Neutrophils (%) (Auto) 56.1, Lymphocytes (%) (Auto) 29.9, Monocytes (%) (Auto) 6.9 H, Eosinophils (%) (Auto) 4.0 H, Basophils (%) ( Auto) 0.7, Neutrophils # (Auto) 3.3, Lymphocytes # (Auto) 1.8, Monocytes # (Auto ) 0.4, Eosinophils # (Auto) 0.2, Basophils # (Auto) 0.0 05/17/16 06:28 Calcium Level 8.3 L, Aspartate Amino Transf (AST/SGOT) 14 L, Alanine Aminotransferase (ALT/SGPT) 22, Alkaline Phosphatase 143 H, Total Bilirubin 0.2 , Total Protein 5.7 L, Albumin 2.2 L FSBS Laboratory Tests Test 05/16/16 11:27 05/16/16 17:06 05/16/16 19:15 Range/Units Bedside Glucose (Misc Panel) 130 166 201 80-115 MG/DL Microbiology Microbiology 05/15/16 Blood Culture - Preliminary, Resulted No growth after 24 hours . All specim... 05/16/16 Gram Stain - Final, Resulted 05/16/16 Body Fluid Culture, Resulted Pending 05/15/16 Gram Stain - Final, Resulted 05/15/16 Wound Culture, Resulted Pending KELECHI ARRIOLA May 17, 2016 08:18
[2016-05-17] MEDS: MIRALAX *UNIT DOSE* 17GM PACKET PO SCH (08:28)
[2016-05-17] MEDS: MOM 30ML SUSPENSION UDC PO SCH (08:28)
[2016-05-17] MEDS ORDERED: PREVNAR 13 VACCINE SYRINGE (CPT CODE:90670) IM ONE (09:00)
[2016-05-17] MEDS ORDERED: amLODIPine 5 MG TAB PO ONE (10:00)
[2016-05-17 14:00] VITALS: BP 115/60
--- NOTE | 2016-05-17 16:43 | REP ---
Left foot four views: There are no comparison left foot studies in our film file. The proximal, mid and distal phalanges of the great toe and in resected. It appears that the head of the great toe metatarsal has been resected. There is an old healed fracture of the neck of the second digit metatarsal. The mineralization and joint spaces are otherwise unremarkable. There is no acute fracture or dislocation. There are no calcifications or foreign bodies. Signed by Enoc Squires MD 05/17/2016 04:34 P
--- NOTE | 2016-05-17 17:59 | EDDOCDS ---
Physician Documentation [facility] Name: Derrick Rodriguez Age: 70 yrs Sex: Female : 1945 Arrival Date: 05/15/2016 Time: 12:37 Bed MRI Private MD: NO PRIMARY PHYSICIAN, . Disposition: 05/15/16 13:51 Hospitalization ordered by Eric Benson for Inpatient Admission. Preliminary diagnosis is Cellulitis of right lower limb. - Bed requested for 5 Gentile. - Status is Inpatient Admission. jmk - Condition is Stable. - Problem is new. - Symptoms are unchanged. Historical: - Allergies: Latex (Rash); - Home Meds: 1. docusate sodium 100 mg Oral cap 2 times per day 2. Probiotic 3 billion cell oral cap daily 3. heparin (porcine) 5,000 unit/mL (1 mL) injection crtg 4. clindamycin iv three times a day 5. ciprofloxacin 400mg IV twice a day twice a day 6. amlodipine 5 mg Oral tab once daily 7. aspirin 81 mg Oral tab 1 tab once daily 8. ferrous sulfate 325 mg (65 mg iron) Oral TbEC daily 9. folic acid 1 mg Oral tab once daily 10. lisinopril 10 mg Oral tab 1 tab once daily 11. Lantus 100 unit/mL Sub-Q soln 30 unit 12. Vitamin C 500 mg Oral chew daily 13. Lasix 20 mg Oral tab once daily 14. Insulin: Novolin R Sub-Q 15. melatonin 5 mg Oral cap daily 16. Maalox 200-200 mg Oral chew 17. Tylenol 325 mg Oral tab every 3 hours - PMHx: Diabetes - NIDDM: uncontrolled; - PSHx: ; right ankle pins and screws removed. right elbow pin; - Social history: Smoking status: Patient states former smoker of tobacco. No barriers to communication noted, The patient speaks fluent Nigerian. - Family history: Not pertinent. - : The pt / caregiver states he / she is not on anticoagulants. Home medication list is obtained from the patient. - Exposure Risk Screening:: None identified. Vital Signs: 05/15 12:39 BP 159 / 89; Pulse 89; Resp 18 S; Temp 97.3; Pulse Ox 98% on R/A; Weight 83.46 kg / 184 dd6 lbs (R); Height 5 ft. 4 in. (162.56 cm) (R); 16:52 BP 151 / 70; Pulse 86; Resp 16; Temp 98.7; Pulse Ox 99% on R/A; Pain 2/10; jmk 12:39 Body Mass Index 31.58 (83.46 kg, 162.56 cm) dd6 MDM: 13:36 IV Saline Lock ordered. br1 13:38 CBC with Diff Ordered. EDMS 13:38 BMP Ordered. EDMS 13:38 BED REQUEST+ADM ordered. EDMS 13:38 Ultrasound LE Unilateral R/O DVT Ordered. EDMS 13:41 MRI Screening Tool - Place on chart, inform RN ordered. br1 13:41 -Blood Culture (Adults Only), peripheral from different site, or from device/port/PICC br1 etc. if present ordered. 13:42 -Blood Culture Ordered. EDMS 13:42 ESR Ordered. EDMS 13:42 Ceftaroline Fosamil 600 mg IV at calculated rate once over 30 mins; reconstitute with br1 20mL NS or SW, then dilulte in 50mL of NS, D5W or LR ordered. 13:58 C REACTIVE PROTEIN QUANTITATIV Ordered. EDMS 14:07 -Blood Culture (Adults Only), peripheral from different site, or from device/port/PICC jmk etc. if present complete. 14:08 MRI Screening Tool - Place on chart, inform RN complete. kr3 14:16 Admission / Observation Status ordered. EDMS 14:17 CONSISTENT CARBOHYDRATES ordered. EDMS 14:18 PHYSICAL THERAPY EVAL & TREAT ordered. EDMS 14:29 CBC with Diff Reviewed. br1 14:29 BMP Reviewed. br1 14:29 C REACTIVE PROTEIN QUANTITATIV Reviewed. br1 14:50 Financial registration complete. mm15 14:50 [facility] Payment Agreement was scanned into [employer] and attached to record. mm15 14:52 MRI-Foot W/O FOL WITH Ordered. EDMS 16:[address] GRAM [address] Ordered. EDMS 05/16 12:00 T-Sheet-- Draft Copy was scanned into [employer] and attached to record. gb Administered Medications: 05/15 14:08 Drug: Ceftaroline Fosamil 600 mg [ceftaroline fosamil 600 mg intravenous solution] nenak Route: IV; Rate: calculated rate; Infused Over: 30 mins; Site: left hand; Signatures: Dispatcher [employer] EDMS Suresh Rudolph,RN RN Dunia Clark, Reg Reg gb Eladio Sierra, RN Iman TaiRN RN kr3 Jean Claude Espitia MD MD br1 Rhoda Vance,RN RN rs3 [employer] mm15 The chart was reviewed and I authenticate all verbal orders and agree with the evaluation and treatment provided.Corrections: (The following items were deleted from the chart) 13:58 13:42 C REACTIVE PROTEIN QUANTITATIV+LAB ordered. EDMS EDMS 14:52 14:34 MRI FOOT WITH CONTRAST ordered. EDMS EDMS 16:03 13:42 MRI-Foot without contrast+MR ordered. EDMS EDMS Attachments: 14:50 [facility] Payment Agreement mm15 05/16 12:00 T-Sheet-- Draft Copy gb Chart Complete MTDD
--- NOTE | 2016-05-17 17:59 | EDDOCDS ---
Physician Documentation [facility] Name: Derrick Rodriguez Age: 70 yrs Sex: Female : 1945 Arrival Date: 05/15/2016 Time: 12:37 Bed MRI Private MD: NO PRIMARY PHYSICIAN, . Disposition: 05/15/16 13:51 Hospitalization ordered by Eric Benson for Inpatient Admission. Preliminary diagnosis is Cellulitis of right lower limb. - Bed requested for 5 Gentile. - Status is Inpatient Admission. jmk - Condition is Stable. - Problem is new. - Symptoms are unchanged. Historical: - Allergies: Latex (Rash); - Home Meds: 1. docusate sodium 100 mg Oral cap 2 times per day 2. Probiotic 3 billion cell oral cap daily 3. heparin (porcine) 5,000 unit/mL (1 mL) injection crtg 4. clindamycin iv three times a day 5. ciprofloxacin 400mg IV twice a day twice a day 6. amlodipine 5 mg Oral tab once daily 7. aspirin 81 mg Oral tab 1 tab once daily 8. ferrous sulfate 325 mg (65 mg iron) Oral TbEC daily 9. folic acid 1 mg Oral tab once daily 10. lisinopril 10 mg Oral tab 1 tab once daily 11. Lantus 100 unit/mL Sub-Q soln 30 unit 12. Vitamin C 500 mg Oral chew daily 13. Lasix 20 mg Oral tab once daily 14. Insulin: Novolin R Sub-Q 15. melatonin 5 mg Oral cap daily 16. Maalox 200-200 mg Oral chew 17. Tylenol 325 mg Oral tab every 3 hours - PMHx: Diabetes - NIDDM: uncontrolled; - PSHx: ; right ankle pins and screws removed. right elbow pin; - Social history: Smoking status: Patient states former smoker of tobacco. No barriers to communication noted, The patient speaks fluent Syrian. - Family history: Not pertinent. - : The pt / caregiver states he / she is not on anticoagulants. Home medication list is obtained from the patient. - Exposure Risk Screening:: None identified. Vital Signs: 05/15 12:39 BP 159 / 89; Pulse 89; Resp 18 S; Temp 97.3; Pulse Ox 98% on R/A; Weight 83.46 kg / 184 dd6 lbs (R); Height 5 ft. 4 in. (162.56 cm) (R); 16:52 BP 151 / 70; Pulse 86; Resp 16; Temp 98.7; Pulse Ox 99% on R/A; Pain 2/10; jmk 12:39 Body Mass Index 31.58 (83.46 kg, 162.56 cm) dd6 MDM: 13:36 IV Saline Lock ordered. br1 13:38 CBC with Diff Ordered. EDMS 13:38 BMP Ordered. EDMS 13:38 BED REQUEST+ADM ordered. EDMS 13:38 Ultrasound LE Unilateral R/O DVT Ordered. EDMS 13:41 MRI Screening Tool - Place on chart, inform RN ordered. br1 13:41 -Blood Culture (Adults Only), peripheral from different site, or from device/port/PICC br1 etc. if present ordered. 13:42 -Blood Culture Ordered. EDMS 13:42 ESR Ordered. EDMS 13:42 Ceftaroline Fosamil 600 mg IV at calculated rate once over 30 mins; reconstitute with br1 20mL NS or SW, then dilulte in 50mL of NS, D5W or LR ordered. 13:58 C REACTIVE PROTEIN QUANTITATIV Ordered. EDMS 14:07 -Blood Culture (Adults Only), peripheral from different site, or from device/port/PICC jmk etc. if present complete. 14:08 MRI Screening Tool - Place on chart, inform RN complete. kr3 14:16 Admission / Observation Status ordered. EDMS 14:17 CONSISTENT CARBOHYDRATES ordered. EDMS 14:18 PHYSICAL THERAPY EVAL & TREAT ordered. EDMS 14:29 CBC with Diff Reviewed. br1 14:29 BMP Reviewed. br1 14:29 C REACTIVE PROTEIN QUANTITATIV Reviewed. br1 14:50 Financial registration complete. mm15 14:50 [facility] Payment Agreement was scanned into [employer] and attached to record. mm15 14:52 MRI-Foot W/O FOL WITH Ordered. EDMS 16:[address] Ordered. EDMS 05/16 12:00 T-Sheet-- Draft Copy was scanned into [employer] and attached to record. gb Administered Medications: 05/15 14:08 Drug: Ceftaroline Fosamil 600 mg [ceftaroline fosamil 600 mg intravenous solution] nenak Route: IV; Rate: calculated rate; Infused Over: 30 mins; Site: left hand; Signatures: Dispatcher [employer] EDMS Suresh Rudolph,RN RN Dunia Clark, Reg Reg gb Eladio Sierra, RN Iman TaiRN RN kr3 Jean Claude Espitia MD MD br1 Rhoda Vance,RN RN rs3 [employer] mm15 The chart was reviewed and I authenticate all verbal orders and agree with the evaluation and treatment provided.Corrections: (The following items were deleted from the chart) 13:58 13:42 C REACTIVE PROTEIN QUANTITATIV+LAB ordered. EDMS EDMS 14:52 14:34 MRI FOOT WITH CONTRAST ordered. EDMS EDMS 16:03 13:42 MRI-Foot without contrast+MR ordered. EDMS EDMS Attachments: 14:50 [facility] Payment Agreement mm15 05/16 12:00 T-Sheet-- Draft Copy gb Chart Complete MTDD
--- NOTE | 2016-05-17 17:59 | EDDOCDS ---
Nurse's Notes [facility] Name: Derrick Rodriguez Age: 70 yrs Sex: Female : 1945 Arrival Date: 05/15/2016 Time: 12:37 Bed MRI Private MD: NO PRIMARY PHYSICIAN, . Diagnosis: Cellulitis of right lower limb Presentation: 05/15 12:55 Presenting complaint: Patient states: Was seen in [facility] for right foot rs3 infection/pain. Was seen by Ortho today. Dr. Matthieu Rizzo sent her to ER for admission. The patients lower extremity has been treated at [place]. Adult Sepsis Screening: The patient does not have new or worsening altered mentation. Patient's respiratory rate is less than 22. Systolic blood pressure is greater than 100. Patient has a qSOFA score of 0- Negative Sepsis Screen. Suicide/Homicide risk assessment- the patient denies having any suicidal and/or homicidal ideations and does not present with any other emotional, behavioral or mental health complaints. 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 Transition of care: patient was not received from another setting of care. 12:55 Acuity: DIANDRA Level 3 rs3 12:55 Method Of Arrival: Wheelchair rs3 Triage Assessment: 13:06 General: Appears in no apparent distress. Pain: Location: right foot. Musculoskeletal: rs3 Reports Pain is 8 out of 10 on a pain scale. Historical: - Allergies: Latex (Rash); - Home Meds: 1. docusate sodium 100 mg Oral cap 2 times per day 2. Probiotic 3 billion cell oral cap daily 3. heparin (porcine) 5,000 unit/mL (1 mL) injection crtg 4. clindamycin iv three times a day 5. ciprofloxacin 400mg IV twice a day twice a day 6. amlodipine 5 mg Oral tab once daily 7. aspirin 81 mg Oral tab 1 tab once daily 8. ferrous sulfate 325 mg (65 mg iron) Oral TbEC daily 9. folic acid 1 mg Oral tab once daily 10. lisinopril 10 mg Oral tab 1 tab once daily 11. Lantus 100 unit/mL Sub-Q soln 30 unit 12. Vitamin C 500 mg Oral chew daily 13. Lasix 20 mg Oral tab once daily 14. Insulin: Novolin R Sub-Q 15. melatonin 5 mg Oral cap daily 16. Maalox 200-200 mg Oral chew 17. Tylenol 325 mg Oral tab every 3 hours - PMHx: Diabetes - NIDDM: uncontrolled; - PSHx: ; right ankle pins and screws removed. right elbow pin; - Social history: Smoking status: Patient states former smoker of tobacco. No barriers to communication noted, The patient speaks fluent Urdu. - Family history: Not pertinent. - : The pt / caregiver states he / she is not on anticoagulants. Home medication list is obtained from the patient. - Exposure Risk Screening:: None identified. Assessment: 13:17 General: Appears in no apparent distress, comfortable, Behavior is reports feeling very kr3 frustrated due to process. Patient states she is here for admission and 'no one knows anything'.. Pain: Denies pain. Respiratory: Respiratory effort is even, unlabored. 13:52 Reassessment: feeling more calm. Dr benson in speaking with patient. kr3 15:38 General: Appears right foot swollen with diffuse redness. states little change in jmk overall appearance with recent admission at [facility].. 16:52 General: Appears Improved demeanor. Now is receptive to course of care. Incontinent of jmk small amount of formed stool. cleansed and repositioned. blistered area to posterior right foot that is without drainage. diffuse redness and swelling noted. PROGRAM ARRANGER less than 2 sec. States pain is " not that much 2/10. sl remains intact.. Vital Signs: 12:39 BP 159 / 89; Pulse 89; Resp 18 S; Temp 97.3; Pulse Ox 98% on R/A; Weight 83.46 kg (R); dd6 Height 5 ft. 4 in. (162.56 cm) (R); 16:52 BP 151 / 70; Pulse 86; Resp 16; Temp 98.7; Pulse Ox 99% on R/A; Pain 2/10; jmk 12:39 Body Mass Index 31.58 (83.46 kg, 162.56 cm) dd6 Vitals: 12:39 Log In Time: May 15, 2016 at 12:38. dd6 ED Course: 12:38 Patient visited by Jadiel Cruz PCA. dd6 12:38 NO PRIMARY PHYSICIAN, . is Private Physician. dd6 12:38 Patient moved to Waiting dd6 12:39 Patient moved to Pre RCE dd6 12:59 Triage Initiated rs3 13:08 Patient moved to I9 / 22 rs3 13:17 Patient visited by Iman Monsivais RN. kr3 13:21 Jean Claude Espitia MD is Attending Physician. br1 13:36 Patient visited by Jean Claude Espitia MD. br1 13:50 Patient moved to Ultrasound am10 13:51 Eric Benson is Hospitalizing Provider. br1 13:51 Patient moved to I9 / 22 am10 13:51 Patient moved to Ultrasound am10 13:51 ESR Sent. kr3 13:51 BMP Sent. kr3 13:51 CBC with Diff Sent. kr3 13:51 Inserted saline lock: 20 gauge in left hand and blood collected. The patient tolerated kr3 the procedure well. 13:53 Patient moved to I9 / 22 am10 14:07 C REACTIVE PROTEIN QUANTITATIV Sent. jmk 14:47 Patient moved to MRI dem1 14:50 [facility] Payment Agreement was scanned into [employer] and attached to record. mm15 16:52 The patient / caregiver is instructed regarding the plan of care and ED course. jmk 16:52 No procedures done that require assistance. [facility] 05/16 12:00 T-Sheet-- Draft Copy was scanned into [employer] and attached to record. gb Administered Medications: 05/15 14:08 Drug: Ceftaroline Fosamil 600 mg [ceftaroline fosamil 600 mg intravenous solution] [facility] Route: IV; Rate: calculated rate; Infused Over: 30 mins; Site: left hand; Order Results: Lab Order: CBC with Diff; SPEC'M 05/15/16 13:46 Test: WHITE BLOOD COUNT; Value: 7.5; Range: 4.0-10.0; Units: K/mm3; Status: F Test: RED BLOOD COUNT; Value: 3.83; Range: 4.00-5.40; Abnormal: Below low normal; Units: M/mm3; Status: F Test: HEMOGLOBIN; Value: 11.3; Range: 12.0-16.0; Abnormal: Below low normal; Units: g/dl; Status: F Test: HEMATOCRIT; Value: 34.7; Range: 36.0-47.0; Abnormal: Below low normal; Units: %; Status: F Test: MEAN CORPUSCULAR VOLUME; Value: 90.5; Range: 80.0-96.0; Units: fl; Status: F Test: MEAN CORPUSCULAR HEMOGLOBIN; Value: 29.6; Range: 27.0-33.0; Units: pg; Status: F Test: MEAN CORPUSCULAR HGB CONC; Value: 32.7; Range: 32.0-36.5; Units: g/dl; Status: F Test: RED CELL DISTRIBUTION WIDTH; Value: 12.3; Range: 11.5-14.5; Units: %; Status: F Test: PLATELET COUNT, AUTOMATED; Value: 213; Range: 150-450; Units: k/mm3; Status: F Test: NEUTROPHILS %; Value: 61.7; Range: 36.0-66.0; Units: %; Status: F Test: LYMPH %; Value: 24.7; Range: 24.0-44.0; Units: %; Status: F Test: MONO %; Value: 6.9; Range: 0.0-5.0; Abnormal: Above high normal; Units: %; Status: F Test: EOS %; Value: 4.1; Range: 0.0-3.0; Abnormal: Above high normal; Units: %; Status: F Test: BASO %; Value: 0.7; Range: 0.0-1.0; Units: %; Status: F Test: LARGE UNSTAINED CELL %; Value: 1.9; Range: 0.0-4.0; Units: %; Status: F Test: NEUTROPHILS #; Value: 4.6; Range: 1.8-7.7; Units: K/mm3; Status: F Test: LYMPH #; Value: 1.9; Range: 1.5-4.5; Units: K/mm3; Status: F Test: MONO #; Value: 0.5; Range: 0.0-0.8; Units: K/mm3; Status: F Test: EOS #; Value: 0.3; Range: 0.0-0.50; Units: K/mm3; Status: F Test: BASO #; Value: 0.0; Range: 0.0-0.2; Units: K/mm3; Status: F Test: LARGE UNSTAINED CELL #; Value: 0.1; Range: 0.0-0.4; Units: K/mm3; Status: F Lab Order: BMP; SPEC'M 05/15/16 13:46 Test: GLUCOSE, FASTING; Value: 179; Range: 80-110; Abnormal: Above high normal; Units: MG/DL; Status: F Test: BLOOD UREA NITROGEN; Value: 23; Range: 7-18; Abnormal: Above high normal; Units: MG/DL; Status: F Test: CREATININE FOR GFR; Value: 0.83; Range: 0.55-1.02; Units: MG/DL; Status: F Test: GLOMERULAR FILTRATION RATE; Value: > 60.0; Range: >45; Status: F Test: SODIUM LEVEL; Value: 141; Range: 136-145; Units: MEQ/L; Status: F Test: POTASSIUM SERUM; Value: 3.9; Range: 3.5-5.1; Units: MEQ/L; Status: F Test: CHLORIDE LEVEL; Value: 105; Range: 98-107; Units: MEQ/L; Status: F Test: CARBON DIOXIDE LEVEL; Value: 27; Range: 21-32; Units: MEQ/L; Status: F Test: ANION GAP; Value: 9; Range: 8-16; Units: MEQ/L; Status: F Test: CALCIUM LEVEL; Value: 8.7; Range: 8.8-10.2; Abnormal: Below low normal; Units: MG/DL; Status: F Test Note: ; Units are mL/min/1.73 m2 Chronic Kidney Disease Staging per NKF: Stage I & II GFR >=60 Normal to Mildly Decreased Stage III GFR 30-59 Moderately Decreased Stage IV GFR 15-29 Severely Decreased Stage V GFR <15 Very Little GFR Left ESRD GFR <15 on REMARKETING MANAGER Lab Order: ESR; SPEC'M 05/15/16 13:46 Test: ERYTHROCYTE SEDIMENTATION RATE; Value: 126; Range: 0-30; Abnormal: Above high normal; Units: mm/hr; Status: F Lab Order: C REACTIVE PROTEIN QUANTITATIV; SPEC'M 05/15/16 13:46 Test: C REACTIVE PROTEIN QUANTITATIV; Value: 6.79; Range: 0.00-0.30; Abnormal: Above high normal; Units: MG/DL; Status: F Outcome: 13:51 Decision to Hospitalize by Provider. br1 16:52 Discharge Assessment: Patient awake, alert and oriented x 3. No cognitive and/or jmk functional deficits noted. Patient verbalized understanding of disposition instructions. patient administered narcotics - no. The following High Risk Discharge criteria are identified: None. Admitted to Med/Surg via stretcher, with chart. Condition: good. MRI Study completed. Property :Personal belongings accompany Pt. 16:57 Patient left the ED. k Signatures: Suresh Rudolph,BRIDGET RN nenak Dunia Najera, Reg Reg gb Iman Monsivais RN RN kr3 Delores Stuart am10 Jean Claude Espitia MD MD br1 Jadiel Cruz, HUMAN RESOURCE PROFESSIONAL HUMAN RESOURCE PROFESSIONAL dd6 Rhoda Vance RN RN rs3 Maximo Meredith1 [employer] mm15 Corrections: (The following items were deleted from the chart) 13:58 13:51 C REACTIVE PROTEIN QUANTITATIV+LAB sent. kr3 EDMS 15:41 15:38 General: Appears right foot swollen with diffuse redness. states little change in jmk overall appearance with recent admission at [facility].. jmk Chart Complete MTDD
[2016-05-17] MEDS: LEVEMIR (INSULIN DETEMIR) 1 UNITS/0.01ML SC SCH (20:13)
[2016-05-17 22:00] VITALS: BP 130/71
[2016-05-18] MEDS: CEFTAROLINE FOSAMIL 600 MG in D5W MINI-BAG PLUS 50 ML IV SCH ×2 (02:07→14:09)
[2016-05-18] MEDS: HEPARIN SOD (PORCINE) 5000 UNITS/ML VIAL SQ SCH ×3 (05:28→20:31)
[2016-05-18 06:00] VITALS: BP 154/69
[2016-05-18 06:44] LABS: BASO % 0.6 % (0.0-1.0); EOS # 0.2 K/mm3 (0.0-0.50); EOS % 4.1 % (0.0-3.0); LARGE UNSTAINED CELL # 0.1 K/mm3 (0.0-0.4); LARGE UNSTAINED CELL % 2.4 % (0.0-4.0); LYMPH # 1.5 K/mm3 (1.5-4.5); LYMPH % 26.7 % (24.0-44.0); MEAN CORPUSCULAR HEMOGLOBIN 29.6 pg (27.0-33.0); MEAN CORPUSCULAR HGB CONC 32.6 g/dl (32.0-36.5); MEAN CORPUSCULAR VOLUME 90.8 fl (80.0-96.0); MONO # 0.5 K/mm3 (0.0-0.8); NEUTROPHILS # 3.4 K/mm3 (1.8-7.7); NEUTROPHILS % 58.2 % (36.0-66.0); PLATELET COUNT, AUTOMATED 219 k/mm3 (150-450); RED CELL DISTRIBUTION WIDTH 12.6 % (11.5-14.5); WHITE BLOOD COUNT 5.8 K/mm3 (4.0-10.0)
[2016-05-18 07:10] LABS: ALBUMIN 2.3 GM/DL (3.2-5.2); ALBUMIN/GLOBULIN RATIO 0.74 (1.00-1.93); ALKALINE PHOSPHATASE 139 U/L (45-117); ALT/SGPT 24 U/L (12-78); ANION GAP 8 MEQ/L (8-16); AST/SGOT 12 U/L (15-37); BILIRUBIN,TOTAL 0.2 MG/DL (0.2-1.0); BLOOD UREA NITROGEN 18 MG/DL (7-18); CALCIUM LEVEL 8.2 MG/DL (8.8-10.2); CARBON DIOXIDE LEVEL 27 MEQ/L (21-32); CHLORIDE LEVEL 111 MEQ/L (98-107); GLOMERULAR FILTRATION RATE > 60.0 (>45); GLUCOSE, FASTING 103 MG/DL (80-110); MAGNESIUM LEVEL 2.3 MG/DL (1.8-2.4); POTASSIUM SERUM 4.1 MEQ/L (3.5-5.1); SODIUM LEVEL 146 MEQ/L (136-145); TOTAL PROTEIN 5.4 GM/DL (6.4-8.2)
[2016-05-18] MEDS: HumaLOG INSULIN (NovoLOG) PER UNIT SC SCH ×4 (07:42→21:00)
[2016-05-18] MEDS: ASPIRIN 81 MG ENTERIC TAB PO SCH (08:35)
[2016-05-18] MEDS: MIRALAX *UNIT DOSE* 17GM PACKET PO SCH (08:36)
[2016-05-18] MEDS: LISINOPRIL 20 MG TAB PO SCH (08:36)
[2016-05-18] MEDS: FERROUS SULFATE 325MG TAB PO SCH (08:36)
[2016-05-18] MEDS: FOLIC ACID 1 MG TAB PO SCH (08:36)
[2016-05-18] MEDS: amLODIPine 10 MG TAB PO SCH (08:36)
[2016-05-18] MEDS: MOM 30ML SUSPENSION UDC PO SCH (08:36)
[2016-05-18 14:00] VITALS: BP 160/74
--- NOTE | 2016-05-18 15:22 | IPNPDOC ---
Assessment/Plan Date Seen The patient was seen on 05/18/16. Problems Problems: (1) Cellulitis of right foot Status: Acute Problem Text: chronic charcot foot with chronic fracture; s/p aspiration by Dr. Ryan on 05/16 to rule out septic joint; continue teflaro; imaging cannot rule out osteo; discussed with Dr. Ryan, will Dr. Cesar today for opinion regarding osteo; blood cx, wound and joint cultures all negative; CRP trending down (2) HTN (hypertension) Status: Chronic Problem Text: continue home ACEI; increased norvasc to 10mg daily on Wednesday given elevated BPs (3) Diabetes mellitus Status: Chronic Problem Text: type 2; continue home nightly levemir 30u; SSI while in house Plan / VTE VTE Prophylaxis Ordered?: Yes (heparin) Disposition pending ID recommendation regarding exterminator termite IV antibiotics Subjective Review of Systems CC/HPI The patient is a 70-year-old female admitted with a reason for visit of Cellulitis Of Right Foot. Events since last encounter patient is very down and frustrated about frequently being hospitalized Cardiovascular: Denies: Chest Pain Gastrointestinal: Denies: Vomiting Objective Physical Examination General Exam: Positive: Alert, Cooperative, No Acute Distress Eye Exam: Positive: EOMI Neck Exam: Positive: Supple Chest Exam: Positive: Clear to auscultation, Normal air movement Heart Exam: Positive: Rate Normal, Regular Rhythm, Negative: Murmurs Abdomen Exam: Positive: Soft, Negative: Tenderness Extremity Exam: Positive: Normal pulses, Other Neuro Exam: Positive: Normal Speech Psych Exam: Positive: Anxiety Vital Signs/I&O Vital Signs Date Time Temp Pulse Resp B/P Pulse Ox O2 Delivery O2 Flow Rate FiO2 05/18/16 13:57 Room Air 05/18/16 08:36 82 156/74 05/18/16 06:00 98.3 18 97 I&O- Last 24 Hours up to 6 AM 05/18/16 06:00 Intake Total 1220 ml Output Total 0 ml Balance 1220 ml Laboratory Data Labs 24H Laboratory Tests 2 05/17/16 16:45: Bedside Glucose (Misc Panel) 152H 05/17/16 19:54: Bedside Glucose (Misc Panel) 188H 05/18/16 06:01: Blood Urea Nitrogen 18, Creatinine 0.80, Sodium Level 146H, Potassium Level 4.1 , Chloride Level 111H, Carbon Dioxide Level 27, Calcium Level 8.2L, Aspartate Amino Transf (AST/SGOT) 12L, Alanine Aminotransferase (ALT/SGPT) 24, Alkaline Phosphatase 139H, Total Bilirubin 0.2, Total Protein 5.4L, Albumin 2.3L, Albumin /Globulin Ratio 0.74L, Anion Gap 8, White Blood Count 5.8, Red Blood Count 3.58L , Hemoglobin 10.6L, Hematocrit 32.5L, Mean Corpuscular Volume 90.8, Mean Corpuscular Hemoglobin 29.6, Mean Corpuscular Hemoglobin Concent 32.6, Red Cell Distribution Width 12.6, Platelet Count 219, Neutrophils (%) (Auto) 58.2, Lymphocytes (%) (Auto) 26.7, Monocytes (%) (Auto) 8.0H, Eosinophils (%) (Auto) 4.1H, Basophils (%) (Auto) 0.6, Neutrophils # (Auto) 3.4, Lymphocytes # (Auto) 1.5, Monocytes # (Auto) 0.5, Eosinophils # (Auto) 0.2, Basophils # (Auto) 0.0, C -Reactive Protein, Quantitative 1.70H, Glomerular Filtration Rate > 60.0, Large Unclassified Cells # 0.1, Large Unclassified Cells % 2.4, Magnesium Level 2.3 05/18/16 11:25: Bedside Glucose (Misc Panel) 101 CBC/BMP Laboratory Tests 05/18/16 06:01 Calcium Level 8.2 L, Aspartate Amino Transf (AST/SGOT) 12 L, Alanine Aminotransferase (ALT/SGPT) 24, Alkaline Phosphatase 139 H, Total Bilirubin 0.2 , Total Protein 5.4 L, Albumin 2.3 L, Red Blood Count 3.58 L, Mean Corpuscular Volume 90.8, Mean Corpuscular Hemoglobin 29.6, Mean Corpuscular Hemoglobin Concent 32.6, Red Cell Distribution Width 12.6, Neutrophils (%) (Auto) 58.2, Lymphocytes (%) (Auto) 26.7, Monocytes (%) (Auto) 8.0 H, Eosinophils (%) (Auto) 4.1 H, Basophils (%) (Auto) 0.6, Neutrophils # (Auto) 3.4, Lymphocytes # (Auto) 1.5, Monocytes # (Auto) 0.5, Eosinophils # (Auto) 0.2, Basophils # (Auto) 0.0 FSBS Laboratory Tests Test 05/17/16 16:45 05/17/16 19:54 05/18/16 11:25 Range/Units Bedside Glucose (Misc Panel) 152 188 101 80-115 MG/DL Microbiology Microbiology 05/15/16 Blood Culture - Preliminary, Resulted No Growth after 72 hours. All specime... 05/16/16 Gram Stain - Final, Complete 05/16/16 Body Fluid Culture - Final, Complete 05/15/16 Gram Stain - Final, Complete 05/15/16 Wound Culture - Final, Complete KELECHI ARRIOLA May 18, 2016 15:22
[2016-05-18] MEDS: LEVEMIR (INSULIN DETEMIR) 1 UNITS/0.01ML SC SCH (20:30)
[2016-05-18 22:00] VITALS: BP 184/86
[2016-05-18 23:00] VITALS: BP 145/63
[2016-05-19] MEDS: CEFTAROLINE FOSAMIL 600 MG in D5W MINI-BAG PLUS 50 ML IV SCH ×2 (01:37→14:17)
[2016-05-19] MEDS: HEPARIN SOD (PORCINE) 5000 UNITS/ML VIAL SQ SCH ×3 (05:40→21:45)
[2016-05-19 06:00] VITALS: BP 146/67
--- NOTE | 2016-05-19 07:05 | CR ---
DATE OF CONSULTATION: 05/18/2016 REASON FOR CONSULTATION: Asked to consult by hospitalist, as well as Dr. Matthieu Tucker for evaluation of right foot swelling, Charcot arthropathy and whether the patient has osteomyelitis or not. HISTORY OF PRESENT ILLNESS: Mrs. Rodriguez is a pleasant 70-year-old female who had been hospitalized at [facility] on April 22 for congestive heart failure/pneumonia and was noted to have swelling in both lower extremities. She was treated with some antibiotic and then switched to oral Keflex. She was evaluated again on May 10 and was noted to have increasing swelling and redness of the right ankle with no known trauma. Ultrasound showed no abscess. X-ray showed a nondisplaced distal fibula fracture, so she was sent to Dr. Tucker to be evaluated from [facility]. He saw her on May 15 and while reviewing the record he noted that her CRP had been on 04/26 31.4 and on 05/10 had gone up to 57.9 and therefore he was concerned for osteomyelitis and he admitted her to the hospital. She initially was treated at [facility] with intravenous (IV) Rocephin and vancomycin and then she was switched to clindamycin and ciprofloxacin. The patient was being evaluated to be admitted to the [place] as she is very forgetful which she blames on her diabetes. She cannot give you a history that is appropriate. PAST MEDICAL HISTORY: Significant for: 1. Insulin-dependent diabetes with severe neuropathy. 2. Status post amputation of the first toe about a couple of years ago after a diabetic foot ulcer. 3. Hypertension. 4. Anxiety. 5. Depressive disorder. 6. This recent hospitalization there was a concern about suicidal ideation. 7. Lactose intolerance. PAST SURGICAL HISTORY: 1. Left foot, first toe ray amputation. 2. Breast biopsy of the left breast which was benign. 3. Hysterectomy. 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 She is from her . She lives with her family members, currently with her daughter. She quit smoking many years ago. MEDICATIONS: - Amlodipine 10 mg by mouth daily - MiraLAX one packet by mouth daily which the patient has been refusing - heparin 5000 units subcutaneous every 8 hours - aspirin 81 mg by mouth daily - ferrous sulfate 325 mg by mouth daily - folic acid 1 mg daily - lisinopril 20 mg by mouth daily - ceftaroline 600 mg by IV every 12 hours - Levemir 30 units subcutaneous nightly - Tylenol 650 mg by mouth every 4 hours as needed ALLERGIES: LATEX. LABORATORY DATA: White count since admission has been normal, currently 5.8, hemoglobin 10.6, hematocrit 32.5, platelets 219. ESR was 126 on May 15 and 71 on May 16. Sodium 146, potassium 4.1, chloride 111, bicarb 27, BUN 18, creatinine 0.8, glucose 103, calcium 8.2, AST 12, ALT 24, alkaline phosphatase 139, CRP 1.7 down from 6.79 three days ago, albumin 2.3. Blood culture done on May 15 was negative. Wound culture done from the right foot around the Achilles tendon, there is a blister which had no growth and joint fluid aspiration done on 05/[address] Garrett Cabral had no growth. White cells in the synovial fluid was 7400 and red cells 640,000, no crystals were seen, uric acid was 6.3, 88% neutrophils. IMAGING STUDIES: Vascular ultrasound showed no evidence of deep venous thrombosis (DVT) on the right side. Foot MRI showed a collapsed fracture through the calcaneus with some fluid collection and soft tissue enhancement in the periphery of the fluid collection with also interosseous enhancement of the calcaneus and osteomyelitis could not be excluded based on that study. A calcaneal fracture appears to be subacute or chronic and the joint effusion and midfoot neuropathic arthropathy. Foot x-ray done the next day 05/16 showed impacted appearance and compression of the calcaneus, may be secondary to trauma versus Charcot arthropathy. X-ray of the left foot shows a previous amputation of the first toe. No calcification, foreign body and old healed fracture of the second digit metatarsal. PHYSICAL EXAMINATION: GENERAL: She is an elderly female in no acute distress, alert and oriented but very confused, especially when coming to history. She cannot give you a history of why she was in [facility] and for how long. She seems to be able to tell you about a couple of days only. She called Dr. Garrett Hannon. VITAL SIGNS: Vital signs are stable. She has been afebrile throughout this admission. Temperature is 96.9, pulse 85, respirations 18, blood pressure 160/74, O2 sat 98% on room air. HEART: Normal, S1-S2. No murmurs, rubs or gallops. LUNGS: Lungs are clear. No wheezes or rhonchi. ABDOMEN: Soft, nontender. No hepatosplenomegaly. BACK: No costovertebral angle (CVA) or lumbosacral tenderness. EXTREMITIES: No edema on the left side. The first toe amputation well healed. Undisplaced second toe medially, but no open ulcers. Toenails are very long. +1 dorsalis pedis bilaterally. Right foot has a erythema on the dorsal aspect of the foot, especially over the fourth and fifth metatarsal. There is slight swelling overlying the Achilles tendon with a like bullous lesion with some erythema and mild tenderness. The patient states that the swelling has markedly improved. NEUROLOGIC EXAM: Decreased sensation to absence sensation of the foot, absent proprioception. Motor strength normal. IMPRESSION: This is a 70-year-old female with a history of insulin-dependent diabetes, status post amputation of the first toe on the left side who presented to [facility] on a couple of occasions, first presumed diagnosis was acute congestive heart failure, second hospitalization was related to right foot swelling and was noted to have a calcaneal fracture versus a Charcot arthropathy. The patient is was referred to Dr. Tucker for evaluation and was admitted to our hospital as that there was concern of osteomyelitis. The patient has currently marked improvement in three days. Her CRP has dropped from 6 to 1 with intravenous antibiotics and offloading support boot. She is doing much better clinically. I suspect this is a Charcot arthropathy and a calcaneus fracture leading to the joint effusion. The joint fluid analysis was pretty benign and not suggestive of infectious process. PLAN: Continue intravenous ceftaroline for a couple more days until she is ready for discharge. She does not need any long-term intravenous (IV) antibiotics or PICC line placement. I would treat her as if she had a Charcot arthropathy with a superficial cellulitis, possibly from this abrasion and she could be switched to Keflex to finish the 10 day course of antibiotics for cellulitis. Monitor CRP weekly. Will obtain also methicillin resistant Staphylococcus aureus (MRSA) screen to make sure she is not MRSA colonized. The case has been discussed with Dr. Tucker who I have agreed to have her remove the boot at night as she is very uncomfortable with this boot she has on currently. He has ordered a special patellar tendon bearing brace for that right foot and he states that she will have to wear it for the rest of her life with a Charcot arthropathy, otherwise she would be a very high risk of developing a diabetic foot ulcer. The patient also needs podiatry care once she is discharged from the hospital. We need to make her an appointment to see a gaming floor supervisor for diabetic foot care. cc: Kristen Tucker
[2016-05-19 07:06] LABS: BASO # 0.1 K/mm3 (0.0-0.2); BASO % 1.1 % (0.0-1.0); EOS # 0.3 K/mm3 (0.0-0.50); EOS % 3.6 % (0.0-3.0); LARGE UNSTAINED CELL # 0.1 K/mm3 (0.0-0.4); LARGE UNSTAINED CELL % 1.8 % (0.0-4.0); LYMPH # 2.1 K/mm3 (1.5-4.5); LYMPH % 26.9 % (24.0-44.0); MEAN CORPUSCULAR HEMOGLOBIN 29.2 pg (27.0-33.0); MEAN CORPUSCULAR HGB CONC 32.2 g/dl (32.0-36.5); MEAN CORPUSCULAR VOLUME 90.6 fl (80.0-96.0); MONO # 0.5 K/mm3 (0.0-0.8); MONO % 7.4 % (0.0-5.0); NEUTROPHILS # 4.3 K/mm3 (1.8-7.7); NEUTROPHILS % 59.3 % (36.0-66.0); PLATELET COUNT, AUTOMATED 198 k/mm3 (150-450); RED CELL DISTRIBUTION WIDTH 13.8 % (11.5-14.5); WHITE BLOOD COUNT 7.3 K/mm3 (4.0-10.0)
[2016-05-19 07:27] LABS: ALBUMIN 2.3 GM/DL (3.2-5.2); ALBUMIN/GLOBULIN RATIO 0.77 (1.00-1.93); ALKALINE PHOSPHATASE 129 U/L (45-117); ALT/SGPT 20 U/L (12-78); ANION GAP 6 MEQ/L (8-16); AST/SGOT 9 U/L (15-37); BILIRUBIN,TOTAL 0.3 MG/DL (0.2-1.0); BLOOD UREA NITROGEN 17 MG/DL (7-18); CALCIUM LEVEL 8.2 MG/DL (8.8-10.2); CARBON DIOXIDE LEVEL 28 MEQ/L (21-32); CHLORIDE LEVEL 111 MEQ/L (98-107); CREATININE FOR GFR 0.75 MG/DL (0.55-1.02); GLOMERULAR FILTRATION RATE > 60.0 (>45); GLUCOSE, FASTING 79 MG/DL (80-110); MAGNESIUM LEVEL 2.2 MG/DL (1.8-2.4); SODIUM LEVEL 145 MEQ/L (136-145); TOTAL PROTEIN 5.3 GM/DL (6.4-8.2)
[2016-05-19] MEDS: HumaLOG INSULIN (NovoLOG) PER UNIT SC SCH ×4 (07:30→21:00)
[2016-05-19] MEDS: FOLIC ACID 1 MG TAB PO SCH (08:19)
[2016-05-19] MEDS: FERROUS SULFATE 325MG TAB PO SCH (08:19)
[2016-05-19] MEDS: ASPIRIN 81 MG ENTERIC TAB PO SCH (08:19)
[2016-05-19] MEDS: MOM 30ML SUSPENSION UDC PO SCH (08:20)
[2016-05-19] MEDS: MIRALAX *UNIT DOSE* 17GM PACKET PO SCH (08:20)
[2016-05-19] MEDS: amLODIPine 10 MG TAB PO SCH (08:20)
[2016-05-19] MEDS: LISINOPRIL 20 MG TAB PO SCH (08:21)
[2016-05-19 08:33] VITALS: BP 140/64
[2016-05-19 14:00] VITALS: BP 168/69
[2016-05-19 20:00] VITALS: BP 142/71
[2016-05-19] MEDS: LEVEMIR (INSULIN DETEMIR) 1 UNITS/0.01ML SC SCH (21:45)
[2016-05-19 22:00] VITALS: BP 142/71
[2016-05-20] MEDS: CEFTAROLINE FOSAMIL 600 MG in D5W MINI-BAG PLUS 50 ML IV SCH (02:30)
[2016-05-20] MEDS: HEPARIN SOD (PORCINE) 5000 UNITS/ML VIAL SQ SCH ×3 (05:14→21:16)
[2016-05-20 06:00] VITALS: BP 139/65
[2016-05-20 07:21] LABS: BASO % 0.7 % (0.0-1.0); EOS # 0.2 K/mm3 (0.0-0.50); EOS % 2.8 % (0.0-3.0); LARGE UNSTAINED CELL # 0.1 K/mm3 (0.0-0.4); LARGE UNSTAINED CELL % 1.2 % (0.0-4.0); LYMPH # 1.6 K/mm3 (1.5-4.5); MEAN CORPUSCULAR HEMOGLOBIN 29.6 pg (27.0-33.0); MEAN CORPUSCULAR HGB CONC 33.4 g/dl (32.0-36.5); MEAN CORPUSCULAR VOLUME 88.7 fl (80.0-96.0); MONO # 0.4 K/mm3 (0.0-0.8); MONO % 6.2 % (0.0-5.0); NEUTROPHILS # 4.7 K/mm3 (1.8-7.7); PLATELET COUNT, AUTOMATED 222 k/mm3 (150-450); RED CELL DISTRIBUTION WIDTH 12.8 % (11.5-14.5); WHITE BLOOD COUNT 7.1 K/mm3 (4.0-10.0)
[2016-05-20] MEDS: HumaLOG INSULIN (NovoLOG) PER UNIT SC SCH ×4 (07:31→21:00)
[2016-05-20 07:42] LABS: ALBUMIN 2.4 GM/DL (3.2-5.2); ALBUMIN/GLOBULIN RATIO 0.67 (1.00-1.93); ALKALINE PHOSPHATASE 136 U/L (45-117); ALT/SGPT 22 U/L (12-78); ANION GAP 7 MEQ/L (8-16); AST/SGOT 13 U/L (15-37); BILIRUBIN,TOTAL 0.2 MG/DL (0.2-1.0); BLOOD UREA NITROGEN 20 MG/DL (7-18); CALCIUM LEVEL 8.5 MG/DL (8.8-10.2); CARBON DIOXIDE LEVEL 27 MEQ/L (21-32); CHLORIDE LEVEL 110 MEQ/L (98-107); GLOMERULAR FILTRATION RATE > 60.0 (>45); GLUCOSE, FASTING 166 MG/DL (80-110); POTASSIUM SERUM 4.2 MEQ/L (3.5-5.1); SODIUM LEVEL 144 MEQ/L (136-145)
[2016-05-20] MEDS: MOM 30ML SUSPENSION UDC PO SCH (09:00)
[2016-05-20] MEDS: MIRALAX *UNIT DOSE* 17GM PACKET PO SCH (09:00)
[2016-05-20] MEDS: FERROUS SULFATE 325MG TAB PO SCH (09:13)
[2016-05-20] MEDS: ASPIRIN 81 MG ENTERIC TAB PO SCH (09:13)
[2016-05-20] MEDS: FOLIC ACID 1 MG TAB PO SCH (09:13)
[2016-05-20] MEDS: amLODIPine 10 MG TAB PO SCH (09:13)
[2016-05-20] MEDS: LISINOPRIL 20 MG TAB PO SCH (09:13)
--- NOTE | 2016-05-20 10:56 | IPNPDOC ---
Assessment/Plan Date Seen The patient was seen on 05/19/16. Problems Problems: (1) Cellulitis of right foot Status: Acute Problem Text: chronic charcot foot with chronic fracture; s/p aspiration by Dr. 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 Events since last encounter no new complaints today , no issues overnight. Objective Physical Examination General Exam: Positive: Alert, Cooperative, No Acute Distress Eye Exam: Positive: EOMI Neck Exam: Positive: Supple Chest Exam: Positive: Clear to auscultation, Normal air movement Heart Exam: Positive: Rate Normal, Regular Rhythm, Negative: Murmurs Abdomen Exam: Positive: Soft, Negative: Tenderness Extremity Exam: Positive: Normal pulses, Other Neuro Exam: Positive: Normal Speech Psych Exam: Positive: Anxiety Vital Signs/I&O Vital Signs Date Time Temp Pulse Resp B/P Pulse Ox O2 Delivery O2 Flow Rate FiO2 05/19/16 06:00 98.8 62 18 146/67 97 Room Air I&O- Last 24 Hours up to 6 AM 05/19/16 06:00 Intake Total 2090 ml Output Total 0 ml Balance 2090 ml Laboratory Data Labs 24H Laboratory Tests 2 05/18/16 11:25: Bedside Glucose (Misc Panel) 101 05/18/16 16:49: Bedside Glucose (Misc Panel) 199H 05/18/16 19:56: Bedside Glucose (Misc Panel) 172H 05/19/16 06:33: Blood Urea Nitrogen 17, Creatinine 0.75, Sodium Level 145, Potassium Level 4.0, Chloride Level 111H, Carbon Dioxide Level 28, Calcium Level 8.2L, Aspartate Amino Transf (AST/SGOT) 9L, Alanine Aminotransferase (ALT/SGPT) 20, Alkaline Phosphatase 129H, Total Bilirubin 0.3, Total Protein 5.3L, Albumin 2.3L, Albumin /Globulin Ratio 0.77L, Anion Gap 6L, White Blood Count 7.3, Red Blood Count 3.47L, Hemoglobin 10.1L, Hematocrit 31.5L, Mean Corpuscular Volume 90.6, Mean Corpuscular Hemoglobin 29.2, Mean Corpuscular Hemoglobin Concent 32.2, Red Cell Distribution Width 13.8, Platelet Count 198, Neutrophils (%) (Auto) 59.3, Lymphocytes (%) (Auto) 26.9, Monocytes (%) (Auto) 7.4H, Eosinophils (%) (Auto) 3.6H, Basophils (%) (Auto) 1.1H, Neutrophils # (Auto) 4.3, Lymphocytes # (Auto) 2.1, Monocytes # (Auto) 0.5, Eosinophils # (Auto) 0.3, Basophils # (Auto) 0.1, C -Reactive Protein, Quantitative 1.29H, Glomerular Filtration Rate > 60.0, Large Unclassified Cells # 0.1, Large Unclassified Cells % 1.8, Magnesium Level 2.2 CBC/BMP Laboratory Tests 05/19/16 06:33 Calcium Level 8.2 L, Aspartate Amino Transf (AST/SGOT) 9 L, Alanine Aminotransferase (ALT/SGPT) 20, Alkaline Phosphatase 129 H, Total Bilirubin 0.3 , Total Protein 5.3 L, Albumin 2.3 L, Red Blood Count 3.47 L, Mean Corpuscular Volume 90.6, Mean Corpuscular Hemoglobin 29.2, Mean Corpuscular Hemoglobin Concent 32.2, Red Cell Distribution Width 13.8, Neutrophils (%) (Auto) 59.3, Lymphocytes (%) (Auto) 26.9, Monocytes (%) (Auto) 7.4 H, Eosinophils (%) (Auto) 3.6 H, Basophils (%) (Auto) 1.1 H, Neutrophils # (Auto) 4.3, Lymphocytes # (Auto ) 2.1, Monocytes # (Auto) 0.5, Eosinophils # (Auto) 0.3, Basophils # (Auto) 0.1 FSBS Laboratory Tests Test 05/18/16 11:25 05/18/16 16:49 05/18/16 19:56 Range/Units Bedside Glucose (Misc Panel) 101 199 172 80-115 MG/DL Microbiology Microbiology 05/15/16 Blood Culture - Preliminary, Resulted No Growth after 72 hours. All specime... 05/16/16 Gram Stain - Final, Complete 05/16/16 Body Fluid Culture - Final, Complete 05/18/16 MRSA Screen, Received Pending 05/15/16 Gram Stain - Final, Complete 05/15/16 Wound Culture - Final, Complete MARU MONTEMAYOR MD May 19, 2016 07:34
--- NOTE | 2016-05-20 11:01 | IPNPDOC ---
Assessment/Plan Date Seen The patient was seen on 05/20/16. Problems Problems: (1) Cellulitis of right foot Status: Acute Problem Text: chronic charcot foot with chronic fracture; s/p aspiration by Dr. 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 After taht she will be able to bear weight Plan / VTE VTE Prophylaxis Ordered?: Yes (heparin) Subjective Review of Systems CC/HPI The patient is a 70-year-old female admitted with a reason for visit of Cellulitis Of Right Foot. Events since last encounter no complaints today, no hypoglycemia this am. ortho ordered new brace for her right leg. Once that is available patent will be able to bear weight. Objective Physical Examination General Exam: Positive: Alert, Cooperative, No Acute Distress Eye Exam: Positive: EOMI Neck Exam: Positive: Supple Chest Exam: Positive: Clear to auscultation, Normal air movement Heart Exam: Positive: Rate Normal, Regular Rhythm, Negative: Murmurs Abdomen Exam: Positive: Soft, Negative: Tenderness Extremity Exam: Positive: Normal pulses, Other Neuro Exam: Positive: Normal Speech Psych Exam: Positive: Anxiety Vital Signs/I&O Vital Signs Date Time Temp Pulse Resp B/P Pulse Ox O2 Delivery O2 Flow Rate FiO2 05/20/16 09:15 Room Air 05/20/16 09:13 79 138/71 05/20/16 06:00 96.5 16 93 I&O- Last 24 Hours up to 6 AM 05/20/16 06:00 Intake Total 1610 ml Output Total 0 ml Balance 1610 ml Laboratory Data Labs 24H Laboratory Tests 2 05/19/16 11:41: Bedside Glucose (Misc Panel) 250H 05/19/16 16:51: Bedside Glucose (Misc Panel) 114 05/19/16 19:55: Bedside Glucose (Misc Panel) 194H 05/20/16 06:32: Bedside Glucose (Misc Panel) 170H 05/20/16 07:04: Blood Urea Nitrogen 20H, Creatinine 0.90, Sodium Level 144, Potassium Level 4.2 , Chloride Level 110H, Carbon Dioxide Level 27, Calcium Level 8.5L, Aspartate Amino Transf (AST/SGOT) 13L, Alanine Aminotransferase (ALT/SGPT) 22, Alkaline Phosphatase 136H, Total Bilirubin 0.2, Total Protein 6.0L, Albumin 2.4L, Albumin /Globulin Ratio 0.67L, Anion Gap 7L, White Blood Count 7.1, Red Blood Count 3.56L, Hemoglobin 10.5L, Hematocrit 31.6L, Mean Corpuscular Volume 88.7, Mean Corpuscular Hemoglobin 29.6, Mean Corpuscular Hemoglobin Concent 33.4, Red Cell Distribution Width 12.8, Platelet Count 222, Neutrophils (%) (Auto) 67.0H, Lymphocytes (%) (Auto) 22.0L, Monocytes (%) (Auto) 6.2H, Eosinophils (%) (Auto) 2.8, Basophils (%) (Auto) 0.7, Neutrophils # (Auto) 4.7, Lymphocytes # (Auto) 1.6, Monocytes # (Auto) 0.4, Eosinophils # (Auto) 0.2, Basophils # (Auto) 0.0, C -Reactive Protein, Quantitative 1.13H, Glomerular Filtration Rate > 60.0, Large Unclassified Cells # 0.1, Large Unclassified Cells % 1.2, Magnesium Level 2.0 CBC/BMP Laboratory Tests 05/20/16 07:04 Calcium Level 8.5 L, Aspartate Amino Transf (AST/SGOT) 13 L, Alanine Aminotransferase (ALT/SGPT) 22, Alkaline Phosphatase 136 H, Total Bilirubin 0.2 , Total Protein 6.0 L, Albumin 2.4 L, Red Blood Count 3.56 L, Mean Corpuscular Volume 88.7, Mean Corpuscular Hemoglobin 29.6, Mean Corpuscular Hemoglobin Concent 33.4, Red Cell Distribution Width 12.8, Neutrophils (%) (Auto) 67.0 H, Lymphocytes (%) (Auto) 22.0 L, Monocytes (%) (Auto) 6.2 H, Eosinophils (%) (Auto ) 2.8, Basophils (%) (Auto) 0.7, Neutrophils # (Auto) 4.7, Lymphocytes # (Auto) 1.6, Monocytes # (Auto) 0.4, Eosinophils # (Auto) 0.2, Basophils # (Auto) 0.0 FSBS Laboratory Tests Test 05/19/16 11:41 05/19/16 16:51 05/19/16 19:55 05/20/16 06:32 Range/Units Bedside Glucose (Misc Panel) 250 114 194 170 80-115 MG/DL Microbiology Microbiology 05/15/16 Blood Culture - Preliminary, Resulted No Growth after 72 hours. All specime... 05/16/16 Gram Stain - Final, Complete 05/16/16 Body Fluid Culture - Final, Complete 05/18/16 MRSA Screen, Received Pending 05/15/16 Gram Stain - Final, Complete 05/15/16 Wound Culture - Final, Complete MARU MONTEMAYOR MD May 20, 2016 11:01
[2016-05-20 14:00] VITALS: BP 138/73
[2016-05-20] MEDS: LINEZOLID 600MG TABLET (ZYVOX) PO SCH (21:15)
[2016-05-20] MEDS: LEVEMIR (INSULIN DETEMIR) 1 UNITS/0.01ML SC SCH (21:16)
[2016-05-20 22:00] VITALS: BP 139/72
[2016-05-21] MEDS: HEPARIN SOD (PORCINE) 5000 UNITS/ML VIAL SQ SCH ×3 (05:36→20:01)
[2016-05-21 06:00] VITALS: BP 146/65
[2016-05-21 06:50] LABS: BASO # 0.1 K/mm3 (0.0-0.2); BASO % 0.9 % (0.0-1.0); EOS # 0.3 K/mm3 (0.0-0.50); EOS % 4.5 % (0.0-3.0); LARGE UNSTAINED CELL # 0.1 K/mm3 (0.0-0.4); LARGE UNSTAINED CELL % 1.8 % (0.0-4.0); LYMPH # 2.1 K/mm3 (1.5-4.5); LYMPH % 28.9 % (24.0-44.0); MEAN CORPUSCULAR HEMOGLOBIN 29.6 pg (27.0-33.0); MEAN CORPUSCULAR HGB CONC 32.6 g/dl (32.0-36.5); MEAN CORPUSCULAR VOLUME 90.9 fl (80.0-96.0); MONO # 0.5 K/mm3 (0.0-0.8); MONO % 7.3 % (0.0-5.0); NEUTROPHILS # 3.9 K/mm3 (1.8-7.7); NEUTROPHILS % 56.5 % (36.0-66.0); PLATELET COUNT, AUTOMATED 189 k/mm3 (150-450); RED CELL DISTRIBUTION WIDTH 13.8 % (11.5-14.5); WHITE BLOOD COUNT 6.8 K/mm3 (4.0-10.0)
[2016-05-21 07:56] LABS: ALBUMIN 2.3 GM/DL (3.2-5.2); ALBUMIN/GLOBULIN RATIO 0.82 (1.00-1.93); ALKALINE PHOSPHATASE 138 U/L (45-117); ALT/SGPT 22 U/L (12-78); ANION GAP 7 MEQ/L (8-16); AST/SGOT 10 U/L (15-37); BILIRUBIN,TOTAL 0.2 MG/DL (0.2-1.0); BLOOD UREA NITROGEN 17 MG/DL (7-18); CALCIUM LEVEL 8.6 MG/DL (8.8-10.2); CARBON DIOXIDE LEVEL 26 MEQ/L (21-32); CHLORIDE LEVEL 112 MEQ/L (98-107); CREATININE FOR GFR 0.78 MG/DL (0.55-1.02); GLOMERULAR FILTRATION RATE > 60.0 (>45); GLUCOSE, FASTING 134 MG/DL (80-110); MAGNESIUM LEVEL 2.2 MG/DL (1.8-2.4); POTASSIUM SERUM 4.2 MEQ/L (3.5-5.1); SODIUM LEVEL 145 MEQ/L (136-145); TOTAL PROTEIN 5.1 GM/DL (6.4-8.2)
[2016-05-21] MEDS: MOM 30ML SUSPENSION UDC PO SCH ×2 (08:05→08:09)
[2016-05-21] MEDS: ASPIRIN 81 MG ENTERIC TAB PO SCH (08:06)
[2016-05-21] MEDS: amLODIPine 10 MG TAB PO SCH (08:06)
[2016-05-21] MEDS: MIRALAX *UNIT DOSE* 17GM PACKET PO SCH ×2 (08:06→08:09)
[2016-05-21] MEDS: HumaLOG INSULIN (NovoLOG) PER UNIT SC SCH ×4 (08:06→20:07)
[2016-05-21] MEDS: FOLIC ACID 1 MG TAB PO SCH (08:07)
[2016-05-21] MEDS: LISINOPRIL 20 MG TAB PO SCH (08:07)
[2016-05-21] MEDS: LINEZOLID 600MG TABLET (ZYVOX) PO SCH ×2 (08:07→20:01)
[2016-05-21] MEDS: FERROUS SULFATE 325MG TAB PO SCH (08:07)
--- NOTE | 2016-05-21 10:53 | IPNPDOC ---
Assessment/Plan Date Seen The patient was seen on 05/21/16. Problems Problems: (1) Cellulitis of right foot Status: Acute Problem Text: chronic charcot foot with chronic fracture; s/p aspiration by Dr. 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 antibiotics to be finished on 05/21/16 lost IV access so antibiotic changed to linezolid. 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 After taht she will be able to bear weight Plan / VTE VTE Prophylaxis Ordered?: Yes (heparin) Subjective Review of Systems CC/HPI The patient is a 70-year-old female admitted with a reason for visit of Cellulitis Of Right Foot. Events since last encounter no complaints today. Objective Physical Examination General Exam: Positive: Alert, Cooperative, No Acute Distress Eye Exam: Positive: EOMI Neck Exam: Positive: Supple Chest Exam: Positive: Clear to auscultation, Normal air movement Heart Exam: Positive: Rate Normal, Regular Rhythm, Negative: Murmurs Abdomen Exam: Positive: Soft, Negative: Tenderness Extremity Exam: Positive: Normal pulses, Other Neuro Exam: Positive: Normal Speech Psych Exam: Positive: Anxiety Vital Signs/I&O Vital Signs Date Time Temp Pulse Resp B/P Pulse Ox O2 Delivery O2 Flow Rate FiO2 05/21/16 08:30 Room Air 05/21/16 08:07 146/65 05/21/16 08:06 77 05/21/16 06:00 98.9 18 92 I&O- Last 24 Hours up to 6 AM 05/21/16 06:00 Intake Total 1340 ml Output Total 400 ml Balance 940 ml Laboratory Data Labs 24H Laboratory Tests 2 05/20/16 11:41: Bedside Glucose (Misc Panel) 140H 1/25/17 17:08: Bedside Glucose (Misc Panel) 197H 05/20/16 20:07: Bedside Glucose (Misc Panel) 205H 05/21/16 06:21: Blood Urea Nitrogen 17, Creatinine 0.78, Sodium Level 145, Potassium Level 4.2, Chloride Level 112H, Carbon Dioxide Level 26, Calcium Level 8.6L, Aspartate Amino Transf (AST/SGOT) 10L, Alanine Aminotransferase (ALT/SGPT) 22, Alkaline Phosphatase 138H, Total Bilirubin 0.2, Total Protein 5.1L, Albumin 2.3L, Albumin /Globulin Ratio 0.82L, Anion Gap 7L, White Blood Count 6.8, Red Blood Count 3.51L, Hemoglobin 10.4L, Hematocrit 31.9L, Mean Corpuscular Volume 90.9, Mean Corpuscular Hemoglobin 29.6, Mean Corpuscular Hemoglobin Concent 32.6, Red Cell Distribution Width 13.8, Platelet Count 189, Neutrophils (%) (Auto) 56.5, Lymphocytes (%) (Auto) 28.9, Monocytes (%) (Auto) 7.3H, Eosinophils (%) (Auto) 4.5H, Basophils (%) (Auto) 0.9, Neutrophils # (Auto) 3.9, Lymphocytes # (Auto) 2.1, Monocytes # (Auto) 0.5, Eosinophils # (Auto) 0.3, Basophils # (Auto) 0.1, C -Reactive Protein, Quantitative 1.17H, Glomerular Filtration Rate > 60.0, Large Unclassified Cells # 0.1, Large Unclassified Cells % 1.8, Magnesium Level 2.2 05/21/16 06:31: Bedside Glucose (Misc Panel) 129H CBC/BMP Laboratory Tests 05/21/16 06:21 Calcium Level 8.6 L, Aspartate Amino Transf (AST/SGOT) 10 L, Alanine Aminotransferase (ALT/SGPT) 22, Alkaline Phosphatase 138 H, Total Bilirubin 0.2 , Total Protein 5.1 L, Albumin 2.3 L, Red Blood Count 3.51 L, Mean Corpuscular Volume 90.9, Mean Corpuscular Hemoglobin 29.6, Mean Corpuscular Hemoglobin Concent 32.6, Red Cell Distribution Width 13.8, Neutrophils (%) (Auto) 56.5, Lymphocytes (%) (Auto) 28.9, Monocytes (%) (Auto) 7.3 H, Eosinophils (%) (Auto) 4.5 H, Basophils (%) (Auto) 0.9, Neutrophils # (Auto) 3.9, Lymphocytes # (Auto) 2.1, Monocytes # (Auto) 0.5, Eosinophils # (Auto) 0.3, Basophils # (Auto) 0.1 FSBS Laboratory Tests Test 05/20/16 11:41 05/20/16 17:08 05/20/16 20:07 05/21/16 06:31 Range/Units Bedside Glucose (Misc Panel) 140 197 205 129 80-115 MG/DL Microbiology Microbiology 05/15/16 Blood Culture - Final, Complete NO GROWTH AFTER 5 DAYS 05/16/16 Gram Stain - Final, Complete 05/16/16 Body Fluid Culture - Final, Complete 05/18/16 MRSA Screen - Final, Complete 05/15/16 Gram Stain - Final, Resulted 05/15/16 Wound Culture - Final, Resulted MARU MONTEMAYOR MD May 21, 2016 10:53
[2016-05-21 14:00] VITALS: BP 137/67
[2016-05-21] MEDS: LEVEMIR (INSULIN DETEMIR) 1 UNITS/0.01ML SC SCH (20:07)
[2016-05-21 22:00] VITALS: BP 178/84
[2016-05-21 23:00] VITALS: BP 148/62
[2016-05-22 06:00] VITALS: BP 159/80
[2016-05-22] MEDS: HEPARIN SOD (PORCINE) 5000 UNITS/ML VIAL SQ SCH (06:21)
[2016-05-22 06:38] LABS: BASO # 0.1 K/mm3 (0.0-0.2); BASO % 1.3 % (0.0-1.0); EOS # 0.3 K/mm3 (0.0-0.50); EOS % 3.6 % (0.0-3.0); LARGE UNSTAINED CELL # 0.1 K/mm3 (0.0-0.4); LARGE UNSTAINED CELL % 1.7 % (0.0-4.0); LYMPH # 2.3 K/mm3 (1.5-4.5); LYMPH % 28.3 % (24.0-44.0); MEAN CORPUSCULAR HEMOGLOBIN 29.4 pg (27.0-33.0); MEAN CORPUSCULAR HGB CONC 33.1 g/dl (32.0-36.5); MEAN CORPUSCULAR VOLUME 88.8 fl (80.0-96.0); MONO # 0.5 K/mm3 (0.0-0.8); MONO % 6.9 % (0.0-5.0); NEUTROPHILS # 4.4 K/mm3 (1.8-7.7); NEUTROPHILS % 58.3 % (36.0-66.0); PLATELET COUNT, AUTOMATED 205 k/mm3 (150-450); RED CELL DISTRIBUTION WIDTH 13.8 % (11.5-14.5); WHITE BLOOD COUNT 7.6 K/mm3 (4.0-10.0)
[2016-05-22 06:59] LABS: ALBUMIN 2.3 GM/DL (3.2-5.2); ALKALINE PHOSPHATASE 138 U/L (45-117); ALT/SGPT 22 U/L (12-78); ANION GAP 6 MEQ/L (8-16); AST/SGOT 14 U/L (15-37); BILIRUBIN,TOTAL 0.2 MG/DL (0.2-1.0); BLOOD UREA NITROGEN 17 MG/DL (7-18); CALCIUM LEVEL 8.6 MG/DL (8.8-10.2); CARBON DIOXIDE LEVEL 28 MEQ/L (21-32); CHLORIDE LEVEL 110 MEQ/L (98-107); GLOMERULAR FILTRATION RATE > 60.0 (>45); GLUCOSE, FASTING 157 MG/DL (80-110); POTASSIUM SERUM 3.9 MEQ/L (3.5-5.1); SODIUM LEVEL 144 MEQ/L (136-145); TOTAL PROTEIN 5.6 GM/DL (6.4-8.2)
[2016-05-22] MEDS ORDERED: INSULANT SC (07:56)
[2016-05-22] MEDS ORDERED: AMLO10TA2 PO (07:56)
[2016-05-22] MEDS: HumaLOG INSULIN (NovoLOG) PER UNIT SC SCH (08:04)
[2016-05-22 08:05] VITALS: BP 159/80
[2016-05-22] MEDS: amLODIPine 10 MG TAB PO SCH (08:05)
[2016-05-22] MEDS: MIRALAX *UNIT DOSE* 17GM PACKET PO SCH (08:05)
[2016-05-22] MEDS: LINEZOLID 600MG TABLET (ZYVOX) PO SCH (08:05)
[2016-05-22] MEDS: FERROUS SULFATE 325MG TAB PO SCH (08:05)
[2016-05-22] MEDS: FOLIC ACID 1 MG TAB PO SCH (08:05)
[2016-05-22] MEDS: MOM 30ML SUSPENSION UDC PO SCH (08:05)
[2016-05-22] MEDS: ASPIRIN 81 MG ENTERIC TAB PO SCH (08:05)
[2016-05-22] MEDS: LISINOPRIL 20 MG TAB PO SCH (08:05)
--- NOTE | 2016-06-04 12:12 | DSES ---
DATE OF ADMISSION: 05/15/2016 DATE OF DISCHARGE: 05/22/2016 PRIMARY CARE PROVIDER: Trying to establish care with Dr. Bush. DISPOSITION: Patient was discharged to [facility]. DISCHARGE DIAGNOSES: 1. Right foot superficial cellulitis over Charcot's joint with effusion. 2. Chronic Charcot's joint on the right foot with chronic fracture. 3. Hypertension. 4. Diabetes. 5. Gait instability due to chronic Charcot's arthropathy and fracture using a brace and a boot. 6. Anxiety. 7. Depression. 8. Diabetic neuropathy. DISCHARGE MEDICATIONS: - Tylenol 650 mg every 4 hours as needed for pain - amlodipine 10 mg by mouth daily - vitamin C 500 mg by mouth daily - aspirin 81 mg by mouth daily - ferrous sulfate 325 mg by mouth daily - folic acid 1 mg by mouth daily - Lantus insulin 20 units at bed time - insulin lispro insulin as per sliding scale before meals - lisinopril 20 mg by mouth daily - melatonin 5 mg at bedtime HOSPITAL COURSE: This is a 70-year-old female with diabetes, hypertension, diabetic neuropathy, Charcot's joints, She was sent to the emergency room by Dr. Matthieu Tucker for right ankle calcaneus fracture with surrounding cellulitis and possible abscess and the possibility of septic joint. Patient's joint was aspirated in the hospital which did not show septic arthritis. Patient had an MRI done, which was negative for osteomyelitis. Patient was diagnosed with chronic fracture due to Charcot's joint in the right calcaneum with suppurative chronic effusion and superficial cellulitis. Patient finished 8 day course of antibiotics, part of it was with ceftaroline and the rest of it by linezolid. Patient responded well to treatment. Orthopedic surgeon prescribed brace for her right foot and leg and a boot for the left. Patient was seen by physical therapy and she was progressed from non-weightbearing to weightbearing with the brace and the boot on. Patient on the day of discharge did not have any complaints, was back to her functional baseline and was discharged to [facility] for further rehabilitation. PHYSICAL EXAMINATION: V: Temperature 99.1, pulse 83, respiratory rate 16, blood pressure 159/80, pulse oximetry 92% on room air. GENERAL: Patient awake, alert and oriented times three, sitting up in bed in no acute distress. HEENT: Normocephalic, atraumatic, moist mucous membranes. Anicteric eyes. CHEST: Clear to auscultation. CARDIOVASCULAR: S1, S2, regular. No rub, murmur or gallop. ABDOMEN: Soft, non-tender. Bowel sounds present. EXTREMITIES: No edema. LABORATORY DATA: WBC 7.6, hemoglobin 10.4, platelet 205, sodium 144, potassium 3.9, chloride 110, bicarbonate 28, BUN 17, creatinine 0.8, glucose 157, calcium 8.6, liver function tests are normal. DISPOSITION: Patient is discharged to [facility]. DISCHARGE INSTRUCTIONS: 1. Patient to follow up with physician at [facility] within a week. 2. Patient should be referred to podiatry for diabetic foot care. 3. Patient instructed to wear the brace in the right leg and the boot in the left leg and can be weightbearing with those. 4. Carbohydrate consistent diet. 5. Activity as tolerated.
== END 2016-05-22 09:30 | DRG 603 ==
LOC: M ED 12:37 → M ED INP 14:08 → M MS5PR 17:03
PROVIDERS: ADMIT Internal Medicine; ATTEND Internal Medicine Nephrology
DX: L03.115 Cellulitis of right lower limb (principal); E11.610 Type 2 diabetes mellitus with diabetic neuropathic arthropathy; I10 Essential (primary) hypertension; Z79.82 Long term (current) use of aspirin; Z79.899 Other long term (current) drug therapy; E11.618 Type 2 diabetes mellitus with other diabetic arthropathy; Z87.891 Personal history of nicotine dependence; M25.471 Effusion, right ankle; F32.9 Major depressive disorder, single episode, unspecified; F41.9 Anxiety disorder, unspecified

== ENCOUNTER 2016-08-22 11:10 | Inpatient (IN) | payer MEDICARE, OTHER ==
[~2016-08-22] VITALS: Ht 162.6 cm; Wt 93.9 kg
[~2016-08-22 11:10] MED LIST: ACET-654 PO; AMLO10TA2 PO; AMLO5TAB2 PO; ASPI81TA85 PO; FERR325T3 PO; FOLI1TAB2 PO; HUMA100I3 SC; INSULANT SC; LISI-538 PO; MELA5TAB14 PO; VITA500T88 PO
[2016-08-22 11:59] LABS: BASO # 0.1 K/mm3 (0.0-0.2); BASO % 0.8 % (0.0-1.0); EOS # 0.3 K/mm3 (0.0-0.50); EOS % 4.1 % (0.0-3.0); LARGE UNSTAINED CELL # 0.1 K/mm3 (0.0-0.4); LARGE UNSTAINED CELL % 1.5 % (0.0-4.0); LYMPH # 1.3 K/mm3 (1.5-4.5); MEAN CORPUSCULAR HEMOGLOBIN 31.2 pg (27.0-33.0); MEAN CORPUSCULAR HGB CONC 33.9 g/dl (32.0-36.5); MEAN CORPUSCULAR VOLUME 91.8 fl (80.0-96.0); MONO # 0.6 K/mm3 (0.0-0.8); MONO % 6.8 % (0.0-5.0); NEUTROPHILS # 5.7 K/mm3 (1.8-7.7); NEUTROPHILS % 70.8 % (36.0-66.0); PLATELET COUNT, AUTOMATED 165 k/mm3 (150-450); RED CELL DISTRIBUTION WIDTH 15.1 % (11.5-14.5); WHITE BLOOD COUNT 8.1 K/mm3 (4.0-10.0)
[2016-08-22 12:16] LABS: ALBUMIN 2.6 GM/DL (3.2-5.2); ALBUMIN/GLOBULIN RATIO 0.79 (1.00-1.93); ALKALINE PHOSPHATASE 171 U/L (45-117); ALT/SGPT 28 U/L (12-78); ANION GAP 6 MEQ/L (8-16); AST/SGOT 26 U/L (15-37); BILIRUBIN,DIRECT < 0.1 MG/DL (0.0-0.2); BILIRUBIN,TOTAL 0.3 MG/DL (0.2-1.0); BLOOD UREA NITROGEN 24 MG/DL (7-18); CALCIUM LEVEL 8.5 MG/DL (8.8-10.2); CARBON DIOXIDE LEVEL 28 MEQ/L (21-32); CHLORIDE LEVEL 114 MEQ/L (98-107); CREATININE FOR GFR 0.64 MG/DL (0.55-1.02); GLOMERULAR FILTRATION RATE > 60.0 (>45); GLUCOSE, FASTING 123 MG/DL (80-110); POTASSIUM SERUM 4.1 MEQ/L (3.5-5.1); SODIUM LEVEL 148 MEQ/L (136-145); TOTAL PROTEIN 5.9 GM/DL (6.4-8.2)
[2016-08-22] MEDS ORDERED: ISOVUE-370 76% 100ML VIAL (Q9967) As Ordered ONE (12:33)
--- NOTE | 2016-08-22 15:09 | REP ---
Chest one-view HISTORY: Cough Comparison: 07/29/2015 Increased density is present in the lower lobes consistent with bibasilar atelectasis or infiltrates. The cardiac silhouette is enlarged. The pulmonary vasculature is normal in appearance. Impression: 1. Bibasilar atelectasis or infiltrates. 2. Cardiomegaly. Signed by Pramod Bloom MD 08/22/2016 12:15 P
--- NOTE | 2016-08-22 15:09 | REP ---
CT Head without contrast HISTORY: Cough COMPARISON: 07/29/2015 Areas of decreased attenuation are present in the periventricular and subcortical white matter. This represents small-vessel ischemic disease. There is no intraparenchymal hemorrhage, acute infarct, mass or midline shift. The ventricular system and cortical sulci are dilated consistent with minimal volume loss. There is no extra cerebral collection. There is no fracture. The visualized sinuses are clear. IMPRESSION: 1. Small vessel ischemic disease. 2. Minimal volume loss. Signed by Pramod Bloom MD 08/22/2016 12:57 P
[2016-08-22] MEDS ORDERED: FUROSEMIDE 100 MG/10 ML VIAL (J1940) IV ONE (15:15)
--- NOTE | 2016-08-22 15:16 | REP ---
BILATERAL LOWER EXTREMITY DUPLEX VEINS: HISTORY: Swelling. RIGHT LOWER EXTREMITY: There are no filling defects in the deep venous system. The deep venous system is patent. IMPRESSION: There is no deep venous thrombosis. LEFT LOWER EXTREMITY: There are no filling defects in the deep venous system. The deep venous system is patent. IMPRESSION: There is no deep venous thrombosis. Signed by Pramod Bloom MD 08/22/2016 03:56 P
--- NOTE | 2016-08-22 15:23 | REP ---
CT ANGIO CHEST: HISTORY: Shortness of breath. CONTRAST: Isovue-370, 75mL. There are no filling defects in the main, right, and left pulmonary arteries or their branches. Atelectasis or infiltrates are present in the lower lobes and lingula. Mild-sized bilateral pleural effusions are present. Slightly enlarged lymph nodes measuring up to 1.4 cm are present in the mediastinum. Atherosclerotic calcification is present in the thoracic aorta. Degenerative change is present in the thoracic spine. A 1.5 cm adenoma is present in the left adrenal gland. IMPRESSION: 1. There is no pulmonary embolism.2. Bibasilar atelectasis or infiltrates.3. Mild size pleural effusions. Signed by Pramod Bloom MD 08/22/2016 03:58 P
[2016-08-22] MEDS ORDERED: FURO20TA2 PO (15:33)
[2016-08-22] MEDS ORDERED: MELA5TAB14 PO (15:41)
[2016-08-22] MEDS ORDERED: SYST1SOL OU (15:41)
[2016-08-22] MEDS ORDERED: ACET-654 PO (15:41)
[2016-08-22] MEDS ORDERED: INSUDET SC (15:41)
[2016-08-22] MEDS ORDERED: METF500T PO (15:41)
[2016-08-22] MEDS ORDERED: LISI-538 PO (15:41)
[2016-08-22] MEDS ORDERED: MAG-LIQ PO (15:41)
[2016-08-22] MEDS ORDERED: FOLI1TAB2 PO (15:41)
[2016-08-22] MEDS ORDERED: ASPI81TA13 PO (15:41)
[2016-08-22] MEDS ORDERED: MIRA33504 PO (15:41)
[2016-08-22] MEDS ORDERED: AMLO10TA2 PO (15:41)
[2016-08-22] MEDS ORDERED: FERR325T PO (15:41)
[2016-08-22] MEDS ORDERED: MILKSUS5 PO (15:41)
[2016-08-22 16:32] LABS: OSMOLALITY SERUM 305 MOSM/KG (280-301)
[2016-08-22] MEDS: HumaLOG INSULIN (NovoLOG) PER UNIT SC SCH ×2 (17:30→20:46)
[2016-08-22] MEDS ORDERED: DEXTROSE 50% 50 ML SYRINGE IV PRN (18:00)
[2016-08-22] MEDS ORDERED: GLUCAGON FOR INJ 1 MG VIAL (J1610) SC PRN (18:00)
[2016-08-22] MEDS ORDERED: MOM 30ML SUSPENSION UDC PO PRN (18:00)
[2016-08-22] MEDS ORDERED: GLUCOSE 4 GM CHEW TABLET PO PRN (18:00)
--- NOTE | 2016-08-22 18:03 | HPEPDOC ---
General Date of Admission Aug 22, 2016 at 16:42 Chief Complaint The patient is a 71-year-old female admitted with a reason for visit of Shortness Of Breath. Source: Patient Exam Limitations: No limitations Severity: Moderate Associated Symptoms: Chest Pain, Cough, Diaphoresis, Shortness of breath, Mechanical fall History of Present Illness Ms. Rodriguez 71-year-old female with past medical history of diabetes mellitus, hypertension, diabetic neuropathy, Charcot joint of right foot who presents today after she noticed her right foot becoming swollen and the chronic ulcer of the right back heel oozing pus this morning. The patient states that she lives at [facility], yesterday afternoon she was in her wheelchair and reached over to pick pulling machine tender a telephone, her wheelchair flipped over & she fell onto her left upper thigh and hip. Patient states that she was unable to get back up into her chair by herself and required assistance from the helpers at the [facility], patient states she was not in any pain and so she went to dinner and bed last night without incident. Patient states that when she woke up this morning her right foot had been oozing fluid from a chronic pressure ulcer located on the back of her right heel ( which had previously been healed) and she states that her right foot looked more edematous. The patient also states that she has gained quite a bit of weight in the last 3-5 months although she cannot elicit how much, she also states that she has been short of breath for the past 3-4 months, worse with lying flat and has noticed her legs beginning to swell during this time period too. The patient states that her primary care doctor gave her water pill and she started taking that last week, cannot remember the dosage. She states has been no changes in her diet or medications other than the water pill and then she takes her medications religiously. Patient denies chest pain or palpitations denies cough, headache, denies fever, chills or muscle aches. 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 Home Medications Scheduled Amlodipine Besylate (Amlodipine Besylate) 10 Mg Tab, 10 MG PO DAILY, (Reported) Aspirin (Aspirin EC) 81 Mg Tab, 81 MG PO DAILY, (Reported) Ferrous Sulfate (Ferrous Sulfate) 325 Mg Tab, 325 MG PO DAILY, (Reported) Folic Acid (Folic Acid) 1 Mg Tab, 1 MG PO DAILY, (Reported) Furosemide (Furosemide) 20 Mg Tab, 20 MG PO DAILY, (Reported) HOLD IF WEIGHT IS <179LB Insulin Detemir (Levemir) 1 Units/0.01 Ml Susp, 20 UNITS SC QHS, (Reported) Lisinopril (Lisinopril) 20 Mg Tab, 20 MG PO DAILY, (Reported) Metformin Hydrochloride (Metformin HCl) 500 Mg Tab, 500 MG PO BID, (Reported) Polyethylene Glycol (Systane 0.4-0.3 %) 15 Ml Ashlee, 1 DROP OU BID, (Reported) Scheduled PRN (Mag-Al 200-200 mg/5Ml) 1 Liq Liq, 30 ML PO DAILY PRN for CONSTIPATION, ( Reported) Acetaminophen (Acetaminophen) 325 Mg Tab, 650 MG PO Q6H PRN for PAIN, (Reported) Magnesium Hydroxide (Milk of Magnesia 400 mg/5Ml) 1 Angela Angela, 30 ML PO DAILY PRN for CONSTIPATION, (Reported) Melatonin (Melatonin) 5 Mg Tab, 5 MG PO QHS PRN for INSOMNIA, (Reported) Polyethylene Glycol (Miralax) 1 Pow Pow, 17 GM PO DAILY PRN for CONSTIPATION, ( Reported) Allergies Coded Allergies: Latex (Unverified Allergy, Intermediate, RASH, 08/22/16) Past Medical History Medical History Diabetes Hypertension Diabetic neuropathy Right foot Charcot joint Surgical History 2 C-sections Hysterectomy Left ankle surgery from traumatic injury in the past Left foot first digit amputation in 2015 Laser surgery eyes Family History diabetes Social History * Smoker: former Smoker (the patient quit smoking 5 years ago, prior to this she smoked 1 pack per day for 15 years) Alcohol: Denies Drugs: denies Lives at [facility] Review of Symptoms Constitutional: Denies: Chills Eyes: Denies: Conjunctivae inflammation, Eyelid inflammation, Redness ENT: Denies: Head Aches Skin: Reports: Lesions (ulceron back of right heel), Denies: Rash Pulmonary: Reports: Dyspnea, Denies: Cough Cardiovascular: Reports: Orthopnea, Edema, Denies: Chest Pain, Palpitations, Lt Headedness Gastrointestinal: Denies: Nausea, Vomiting, Abdominal Pain Neurological: Denies: Weakness, Numbness Psych: Reports: Mood Normal Physical Examination General Exam: Positive: Alert, Cooperative, No Acute Distress Eye Exam: Positive: Conjunctiva & lids normal, EOMI, Negative: Sclera icteric, Ptosis ENT Exam: Positive: Atraumatic, Nares Patent Neck Exam: Positive: Supple, Negative: JVD Chest Exam: Positive: Wheezing (inspiratory wheeze right lower lobe), Negative: Rales, Rhonchi, Diminished Heart Exam: Positive: Rate Normal, Regular Rhythm, Normal S1, Normal S2, Negative: Tachycardic, Bradycardic Telemetry: Positive: No significant arrhythmia Abdomen Exam: Positive: Normal bowel sounds, Soft, Negative: BS Hyperactive, BS Hypoactive, Tenderness, Hepatospenomegaly Extremity Exam: Positive: Edema (+1 pitting bilateral lower extremity), Tenderness (left lower extremity pretibial edema), Negative: Clubbing, Cyanosis Skin Exam: Positive: Breakdown (grade 1 pressure ulcer back of right heel) Psych Exam: Positive: Mental status NL Vital Signs Vital Signs Date Time Temp Pulse Resp B/P (MAP) Pulse Ox O2 Delivery O2 Flow Rate FiO2 08/22/16 17:15 98.2 08/22/16 16:55 86 20 93 08/22/16 11:24 2.0 08/22/16 11:22 Room Air Laboratory Data Labs 24H Laboratory Tests 2 08/22/16 11:28: White Blood Count 8.1, Red Blood Count 3.68L, Hemoglobin 11.5L, Hematocrit 33.8L , Mean Corpuscular Volume 91.8, Mean Corpuscular Hemoglobin 31.2, Mean Corpuscular Hemoglobin Concent 33.9, Red Cell Distribution Width 15.1H, Platelet Count 165, Neutrophils (%) (Auto) 70.8H, Lymphocytes (%) (Auto) 16.0L, Monocytes (%) (Auto) 6.8H, Eosinophils (%) (Auto) 4.1H, Basophils (%) (Auto) 0.8 , Neutrophils # (Auto) 5.7, Lymphocytes # (Auto) 1.3L, Monocytes # (Auto) 0.6, Eosinophils # (Auto) 0.3, Basophils # (Auto) 0.1, Large Unclassified Cells % 1.5 , Large Unclassified Cells # 0.1, Prothrombin Time 13.3, Prothromb Time International Ratio 1.00, Anion Gap 6L, Glomerular Filtration Rate > 60.0, Osmolality 305H, Calcium Level 8.5L, Aspartate Amino Transf (AST/SGOT) 26, Alanine Aminotransferase (ALT/SGPT) 28, Alkaline Phosphatase 171H, Total Bilirubin 0.3, Direct Bilirubin < 0.1, Total Creatine Kinase 78, Creatine Kinase MB 1.0, Creatine Kinase MB Relative Index 1.28, Troponin I < 0.02, B- Type Natriuretic Peptide 256H, Total Protein 5.9L, Albumin 2.6L, Albumin/ Globulin Ratio 0.79L 08/22/16 12:05: Lactic Acid Level 0.7 CBC/BMP Laboratory Tests 08/22/16 11:28 Red Blood Count 3.68 L, Mean Corpuscular Volume 91.8, Mean Corpuscular Hemoglobin 31.2, Mean Corpuscular Hemoglobin Concent 33.9, Red Cell Distribution Width 15.1 H, Neutrophils (%) (Auto) 70.8 H, Lymphocytes (%) (Auto ) 16.0 L, Monocytes (%) (Auto) 6.8 H, Eosinophils (%) (Auto) 4.1 H, Basophils (% ) (Auto) 0.8, Neutrophils # (Auto) 5.7, Lymphocytes # (Auto) 1.3 L, Monocytes # (Auto) 0.6, Eosinophils # (Auto) 0.3, Basophils # (Auto) 0.1 Microbiology Microbiology 08/22/16 Blood Culture, Received Pending 08/22/16 Blood Culture, Received Pending Problems (1) Shortness of breath Status: Acute Response to Treatment: Stable Problem Text: Likely secondary to acute decompensated congestive heart failure Echo pending Begin Lasix therapy Strict I&O Daily weights Elevate head of bed 30 Fluid restriction 2500 mL First set of troponins negative, will trend x3 BNP on admission to 256 Physical exam showed +1 pitting lower extremity edema bilateral CTA showed mild bilateral pleural effusion (2) Diabetes mellitus Status: Chronic Problem Text: Sliding scale insulin (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 Response to Treatment: Stable Problem Text: x-ray of ankle and foot did not demonstrate fracture or break continue to monitor (4) HTN (hypertension) Status: Chronic Response to Treatment: Stable Problem Text: 162/92 continue to monitor Will continue home medications (5) DVT prophylaxis Status: Acute Response to Treatment: Stable Problem Text: SCD teds Plan / VTE VTE Prophylaxis Ordered?: Yes Plan / Urinary Catheter Reason for insertion/continuin: Other-document below GME ATTESTATION GME ATTESTATION My preceptor for this patient encounter was physically present in the building during the encounter and was fully available. As needed, all aspects of the patient interview, examination, medical decision making process, and medical care plan development were reviewed and approved by the preceptor. Preceptor is aware and concurs with the plan as stated in the body of this note and will attest to such by his/her cosignature. HARI GROSSMAN DO Aug 22, 2016 18:03
[2016-08-22 18:27] VITALS: BP 162/92
[2016-08-22] MEDS: FUROSEMIDE 40 MG/4 ML VIAL (J1940) IV SCH (20:09)
[2016-08-22 20:20] VITALS: BP 147/70
[2016-08-23] MEDS: FUROSEMIDE 40 MG/4 ML VIAL (J1940) IV SCH ×5 (00:26→17:57)
[2016-08-23 06:00] VITALS: BP 156/70
[2016-08-23 06:34] LABS: ANION GAP 7 MEQ/L (8-16); BASO % 0.7 % (0.0-1.0); BLOOD UREA NITROGEN 20 MG/DL (7-18); CALCIUM LEVEL 7.9 MG/DL (8.8-10.2); CARBON DIOXIDE LEVEL 32 MEQ/L (21-32); CHLORIDE LEVEL 107 MEQ/L (98-107); CREATININE FOR GFR 0.64 MG/DL (0.55-1.02); EOS # 0.4 K/mm3 (0.0-0.50); EOS % 6.3 % (0.0-3.0); GLOMERULAR FILTRATION RATE > 60.0 (>45); GLUCOSE, FASTING 151 MG/DL (80-110); LARGE UNSTAINED CELL # 0.1 K/mm3 (0.0-0.4); LARGE UNSTAINED CELL % 1.5 % (0.0-4.0); LYMPH # 1.4 K/mm3 (1.5-4.5); MEAN CORPUSCULAR HEMOGLOBIN 29.8 pg (27.0-33.0); MEAN CORPUSCULAR HGB CONC 32.5 g/dl (32.0-36.5); MEAN CORPUSCULAR VOLUME 91.8 fl (80.0-96.0); MONO # 0.6 K/mm3 (0.0-0.8); MONO % 7.9 % (0.0-5.0); NEUTROPHILS # 4.5 K/mm3 (1.8-7.7); NEUTROPHILS % 63.6 % (36.0-66.0); PLATELET COUNT, AUTOMATED 166 k/mm3 (150-450); POTASSIUM SERUM 3.2 MEQ/L (3.5-5.1); RED CELL DISTRIBUTION WIDTH 15.2 % (11.5-14.5); SODIUM LEVEL 146 MEQ/L (136-145); WHITE BLOOD COUNT 7.1 K/mm3 (4.0-10.0)
--- NOTE | 2016-08-23 08:35 | REP ---
RIGHT ANKLE, FOUR VIEWS: HISTORY: Fall. There is no acute fracture. There is narrowing of the tibiotalar joint space. There is narrowing of the talocalcaneal joint space with associated sclerosis. There has been further collapse of the anterosuperior calcaneus. Extensive hypertrophic bone formation is present that has progressed compared to the previous study. There is narrowing of the talonavicular joint space. There is no dislocation. Soft tissue swelling is present. IMPRESSION: The above findings are consistent with a Charcot joint that have progressed compared to the previous study. Signed by Pramod Bloom MD 08/23/2016 09:23 A
--- NOTE | 2016-08-23 08:38 | REP ---
RIGHT FOOT, FOUR VIEWS: HISTORY: Fall. COMPARISON: 05/16/2016 There is no acute fracture or dislocation. There is narrowing of the tibiotalar and talonavicular joint spaces. There is narrowing of the talocalcaneal joint space with associated sclerosis. There has been further collapse of anterosuperior aspect of the calcaneus. Extensive hypertrophic bone formation is present that has progressed compared to the previous study. Soft tissue swelling is present. IMPRESSION: Findings consistent with a Charcot joint that have progressed compared to the previous study. Signed by Pramod Bloom MD 08/23/2016 09:24 A
[2016-08-23] MEDS: HumaLOG INSULIN (NovoLOG) PER UNIT SC SCH ×4 (09:05→21:00)
[2016-08-23] MEDS: LISINOPRIL 20 MG TAB PO SCH (09:06)
[2016-08-23] MEDS: amLODIPine 10 MG TAB PO SCH (09:06)
[2016-08-23] MEDS: ASPIRIN 81 MG ENTERIC TAB PO SCH (09:06)
[2016-08-23] MEDS: FERROUS SULFATE 325MG TAB PO SCH (09:06)
[2016-08-23] MEDS ORDERED: POTASSIUM CHLORIDE 10 MEQ SR TABLET PO ONE (10:00)
--- NOTE | 2016-08-23 13:21 | IPNPDOC ---
Date Seen The patient was seen on 08/23/16. Progress Note Hospitalist Progress Note Subjective: Patient states that she is feeling well. She notices a distinct improvement in her breathing, as well as the swelling in her legs. Objective: Physical Exam: Vitals: Vital Sign - Last 24 Hours 08/22/16 08/22/16 08/22/16 08/22/16 13:25 15:25 15:40 15:54 Pulse 92 88 90 B/P (MAP) 157/70 (99) Pulse Ox 92 92 08/22/16 08/22/16 08/22/16 08/22/16 15:55 16:10 16:20 16:25 Pulse 98 92 88 Resp 20 B/P (MAP) 169/78 (108) Pulse Ox 81 92 92 08/22/16 08/22/16 08/22/16 08/22/16 16:40 16:50 16:55 16:56 Pulse 88 86 86 Resp 20 20 B/P (MAP) 174/84 (114) Pulse Ox 93 93 93 08/22/16 08/22/16 08/22/16 08/22/16 17:12 17:15 18:27 19:02 Temp 98.2 98.2 Pulse 95 Resp 18 B/P (MAP) 168/80 (109) 162/92 (115) Pulse Ox 95 O2 Delivery Nasal Cannula Nasal Cannula O2 Flow Rate 2.0 2.0 08/22/16 08/22/16 08/23/16 08/23/16 20:00 20:20 06:00 09:06 Temp 97.3 98.2 Pulse 94 88 88 Resp 17 18 B/P (MAP) 147/70 (95) 156/70 (98) 156/70 Pulse Ox 91 94 O2 Delivery Nasal Cannula Nasal Cannula Nasal Cannula O2 Flow Rate 2.0 2.0 2.0 08/23/16 09:06 B/P (MAP) 156/70 General: Awake, alert, no acute distress HEENT: Normocephalic, atraumatic, extraocular movements intact CV: Regular rate and rhythm, no murmurs rubs or gallops Lungs: Mostly clear to auscultation with slight crackles at the bilateral bases Abd: Soft, nontender, nondistended Extremities: 2+ pitting edema Neuro: Alert and oriented 3, normal speech Psych: And normal mood and affect Labs and Imaging: Laboratory Tests 08/23/16 05:32 Red Blood Count 3.60 L, Mean Corpuscular Volume 91.8, Mean Corpuscular Hemoglobin 29.8, Mean Corpuscular Hemoglobin Concent 32.5, Red Cell Distribution Width 15.2 H, Neutrophils (%) (Auto) 63.6, Lymphocytes (%) (Auto) 20.0 L, Monocytes (%) (Auto) 7.9 H, Eosinophils (%) (Auto) 6.3 H, Basophils (%) (Auto) 0.7, Neutrophils # (Auto) 4.5, Lymphocytes # (Auto) 1.4 L, Monocytes # ( Auto) 0.6, Eosinophils # (Auto) 0.4, Basophils # (Auto) 0.0, Calcium Level 7.9 L Assessment and Plan: 71-year-old female with diabetes mellitus type 2 complicated by peripheral neuropathy and Charcot foot, hypertension who fell out of her wheelchair at [facility] while trying to pear picker the telephone. After that fall, she noticed oozing from a chronic pressure ulcer on her right heel. Upon arrival in the ER, she reported several months of increasing shortness of breath, as well as weight gain and swelling in her bilateral lower extremities. She is admitted for suspected acute on chronic heart failure. 1. Acute on chronic heart failure: No known heart failure at this point, the BNP was mildly elevated and chest imaging showed evidence of mild bilateral effusions. Echo is pending, but the patient has been diuresing well with Lasix. She had an negative balance of greater than 2500 mL yesterday. We will slow down the Lasix. Continue to follow I's and O's and daily weights. Currently holding home oral Lasix. 2. Reopening of chronic pressure ulcer: We will ask the PT wound specialists to address this. 3. Hypertension: Continue home Norvasc and ROBERTA inhibitor. 4. Diabetes mellitus type 2 complicated by peripheral neuropathy and Charcot foot: Currently holding home metformin. Home Levemir at bedtime is also on hold , and fingersticks have been less than 200. We will use sliding scale insulin while in-house. If her fingersticks show elevation above 200, we will resume her home Levemir. 5. Hypernatremia: Patient's sodium upon admission was 148. This is improved to 146 with diuresis. We'll continue to monitor while she is diuresed. 6. Hypokalemia: Replacing DVT prophylaxis: SCDs Dispo: pending echo results and further diuresis VS, I&O, 24H, [place] Vital Signs/I&O Vital Signs Date Time Temp Pulse Resp B/P (MAP) Pulse Ox O2 Delivery O2 Flow Rate FiO2 08/23/16 09:06 156/70 08/23/16 09:06 88 08/23/16 06:00 98.2 18 94 Nasal Cannula 2.0 I&O- Last 24 Hours up to 6 AM 08/23/16 06:00 Intake Total 840 ml Output Total 5000 ml Balance -4160 ml Laboratory Data 24H LABS Laboratory Tests 2 08/22/16 17:36: Troponin I < 0.02 08/22/16 18:34: Bedside Glucose (Misc Panel) 117H 08/22/16 20:21: Bedside Glucose (Misc Panel) 186H 08/22/16 23:40: Troponin I < 0.02 08/23/16 05:32: White Blood Count 7.1, Red Blood Count 3.60L, Hemoglobin 10.7L, Hematocrit 33.0L , Mean Corpuscular Volume 91.8, Mean Corpuscular Hemoglobin 29.8, Mean Corpuscular Hemoglobin Concent 32.5, Red Cell Distribution Width 15.2H, Platelet Count 166, Neutrophils (%) (Auto) 63.6, Lymphocytes (%) (Auto) 20.0L, Monocytes (%) (Auto) 7.9H, Eosinophils (%) (Auto) 6.3H, Basophils (%) (Auto) 0.7 , Neutrophils # (Auto) 4.5, Lymphocytes # (Auto) 1.4L, Monocytes # (Auto) 0.6, Eosinophils # (Auto) 0.4, Basophils # (Auto) 0.0, Large Unclassified Cells % 1.5 , Large Unclassified Cells # 0.1, Anion Gap 7L, Glomerular Filtration Rate > 60.0, Blood Urea Nitrogen 20H, Creatinine 0.64, Sodium Level 146H, Potassium Level 3.2#L, Chloride Level 107, Carbon Dioxide Level 32, Calcium Level 7.9L 08/23/16 11:33: Bedside Glucose (Misc Panel) 199H CBC/BMP Laboratory Tests 08/23/16 05:32 Red Blood Count 3.60 L, Mean Corpuscular Volume 91.8, Mean Corpuscular Hemoglobin 29.8, Mean Corpuscular Hemoglobin Concent 32.5, Red Cell Distribution Width 15.2 H, Neutrophils (%) (Auto) 63.6, Lymphocytes (%) (Auto) 20.0 L, Monocytes (%) (Auto) 7.9 H, Eosinophils (%) (Auto) 6.3 H, Basophils (%) (Auto) 0.7, Neutrophils # (Auto) 4.5, Lymphocytes # (Auto) 1.4 L, Monocytes # ( Auto) 0.6, Eosinophils # (Auto) 0.4, Basophils # (Auto) 0.0, Calcium Level 7.9 L Microbiology Microbiology 08/22/16 Blood Culture - Preliminary, Resulted No growth after 24 hours . All specim... 08/22/16 Blood Culture - Preliminary, Resulted No growth after 24 hours . All specim... KELECHI ARRIOLA Aug 23, 2016 13:21
[2016-08-23 14:00] VITALS: BP 156/74
[2016-08-23 22:00] VITALS: BP 157/69
--- NOTE | 2016-08-24 05:48 | ECGEPIP ---
Stationary ECG Study [facility] - ED Test Date: 2016-08-22 Pat Name: TABITHA ALEXANDRA Department: Room: - Gender: F Trade [employer] Coordinator: : 1945 Requested By: PAMELA Egan Order Number: [id number] Reading MD: Oswaldo Marino Measurements Intervals [place] Rate: 94 P: 52 VA: 155 QRS: 48 QRSD: 86 T: 70 QT: 366 QTc: 459 Interpretive Statements SINUS RHYTHM POSSIBLE LEFT ATRIAL ENLARGEMENT PRWP SIMILAR TO 07/29/15 Electronically Signed On 08-24-2016 5:48:29 EDT by Oswaldo Marino
[2016-08-24 06:00] VITALS: BP 166/80
[2016-08-24 06:05] LABS: BASO % 0.7 % (0.0-1.0); EOS # 0.4 K/mm3 (0.0-0.50); EOS % 6.3 % (0.0-3.0); LARGE UNSTAINED CELL # 0.1 K/mm3 (0.0-0.4); LARGE UNSTAINED CELL % 1.5 % (0.0-4.0); LYMPH # 1.6 K/mm3 (1.5-4.5); LYMPH % 21.2 % (24.0-44.0); MEAN CORPUSCULAR HEMOGLOBIN 29.5 pg (27.0-33.0); MEAN CORPUSCULAR HGB CONC 32.7 g/dl (32.0-36.5); MEAN CORPUSCULAR VOLUME 90.2 fl (80.0-96.0); MONO # 0.6 K/mm3 (0.0-0.8); NEUTROPHILS # 4.3 K/mm3 (1.8-7.7); NEUTROPHILS % 62.2 % (36.0-66.0); PLATELET COUNT, AUTOMATED 162 k/mm3 (150-450); RED CELL DISTRIBUTION WIDTH 15.2 % (11.5-14.5); WHITE BLOOD COUNT 6.9 K/mm3 (4.0-10.0)
[2016-08-24 06:24] LABS: ANION GAP 4 MEQ/L (8-16); BLOOD UREA NITROGEN 23 MG/DL (7-18); CALCIUM LEVEL 7.8 MG/DL (8.8-10.2); CARBON DIOXIDE LEVEL 35 MEQ/L (21-32); CHLORIDE LEVEL 108 MEQ/L (98-107); CREATININE FOR GFR 0.71 MG/DL (0.55-1.02); GLOMERULAR FILTRATION RATE > 60.0 (>45); GLUCOSE, FASTING 160 MG/DL (80-110); POTASSIUM SERUM 3.5 MEQ/L (3.5-5.1); SODIUM LEVEL 147 MEQ/L (136-145)
[2016-08-24] MEDS: FUROSEMIDE 40 MG/4 ML VIAL (J1940) IV SCH ×3 (08:38→17:44)
[2016-08-24] MEDS: ASPIRIN 81 MG ENTERIC TAB PO SCH (08:38)
[2016-08-24] MEDS: amLODIPine 10 MG TAB PO SCH (08:39)
[2016-08-24] MEDS: LISINOPRIL 20 MG TAB PO SCH (08:39)
[2016-08-24] MEDS: FERROUS SULFATE 325MG TAB PO SCH (08:39)
[2016-08-24] MEDS: HumaLOG INSULIN (NovoLOG) PER UNIT SC SCH ×4 (08:39→20:47)
[2016-08-24 12:00] VITALS: BP 170/76
--- NOTE | 2016-08-24 12:49 | IPNPDOC ---
Date Seen The patient was seen on 08/24/16. Progress Note Hospitalist Progress Note Subjective: Patient states that she is feeling better and can see a difference in the swelling in her legs Objective: Physical Exam: Vitals: Vital Sign - Last 24 Hours 08/23/16 08/23/16 08/23/16 08/24/16 14:00 20:00 22:00 06:00 Temp 97.0 98.7 99.2 Pulse 89 83 87 Resp 18 18 18 B/P (MAP) 156/74 (101) 157/69 (98) 166/80 (108) Pulse Ox 94 95 92 O2 Delivery Nasal Cannula Nasal Cannula Nasal Cannula Nasal Cannula O2 Flow Rate 2.0 3.0 2.0 3.0 08/24/16 08/24/16 08:39 09:00 Pulse 87 B/P (MAP) 166/80 O2 Delivery Room Air General: Awake, alert, no acute distress HEENT: Normocephalic, atraumatic, extraocular movements intact CV: Regular rate and rhythm Lungs: Mostly clear to auscultation with slight crackles at the bilateral bases Abd: Soft, nontender, nondistended Extremities: 2+ pitting edema Neuro: Alert and oriented 3, normal speech Psych: normal mood and affect Labs and Imaging: Laboratory Tests 08/24/16 05:25 Red Blood Count 3.53 L, Mean Corpuscular Volume 90.2, Mean Corpuscular Hemoglobin 29.5, Mean Corpuscular Hemoglobin Concent 32.7, Red Cell Distribution Width 15.2 H, Neutrophils (%) (Auto) 62.2, Lymphocytes (%) (Auto) 21.2 L, Monocytes (%) (Auto) 8.0 H, Eosinophils (%) (Auto) 6.3 H, Basophils (%) (Auto) 0.7, Neutrophils # (Auto) 4.3, Lymphocytes # (Auto) 1.6, Monocytes # ( Auto) 0.6, Eosinophils # (Auto) 0.4, Basophils # (Auto) 0.0, Calcium Level 7.8 L Assessment and Plan: 71-year-old female with diabetes mellitus type 2 complicated by peripheral neuropathy and Charcot foot, hypertension who fell out of her wheelchair at [facility] while trying to coal picker the telephone. After that fall, she noticed oozing from a chronic pressure ulcer on her right heel. Upon arrival in the ER, she reported several months of increasing shortness of breath, as well as weight gain and swelling in her bilateral lower extremities. She is admitted for suspected acute on chronic heart failure. 1. Acute on chronic heart failure: No known heart failure at this point, the BNP was mildly elevated and chest imaging showed evidence of mild bilateral effusions. Echo is pending, but the patient has been diuresing well with Lasix. Continue lasix and continue to follow I's and O's and daily weights. Currently holding home oral Lasix. Follow up echo results. 2. Reopening of chronic pressure ulcer: PT wound specialists have been consulted. 3. Hypertension: Continue home Norvasc and ROBERTA inhibitor. 4. Diabetes mellitus type 2 complicated by peripheral neuropathy and Charcot foot: Currently holding home metformin. Resume home nightly levemir. We will use sliding scale insulin while in-house. 5. Hypernatremia: Patient's sodium upon admission was 148. She has had little change with diuresis. We'll continue to monitor while she is diuresed. 6. Hypokalemia: Replaced DVT prophylaxis: SCDs Dispo: pending echo results and further diuresis VS, I&O, 24H, Fishbone Vital Signs/I&O Vital Signs Date Time Temp Pulse Resp B/P (MAP) Pulse Ox O2 Delivery O2 Flow Rate FiO2 08/24/16 09:00 Room Air 08/24/16 08:39 87 166/80 08/24/16 06:00 99.2 18 92 3.0 I&O- Last 24 Hours up to 6 AM 08/24/16 06:00 Intake Total 1560 ml Output Total 4550 ml Balance -2990 ml Laboratory Data 24H LABS Laboratory Tests 2 08/23/16 16:33: Bedside Glucose (Misc Panel) 297H 08/23/16 21:33: Bedside Glucose (Misc Panel) 190H 08/24/16 05:25: White Blood Count 6.9, Red Blood Count 3.53L, Hemoglobin 10.4L, Hematocrit 31.9L , Mean Corpuscular Volume 90.2, Mean Corpuscular Hemoglobin 29.5, Mean Corpuscular Hemoglobin Concent 32.7, Red Cell Distribution Width 15.2H, Platelet Count 162, Neutrophils (%) (Auto) 62.2, Lymphocytes (%) (Auto) 21.2L, Monocytes (%) (Auto) 8.0H, Eosinophils (%) (Auto) 6.3H, Basophils (%) (Auto) 0.7 , Neutrophils # (Auto) 4.3, Lymphocytes # (Auto) 1.6, Monocytes # (Auto) 0.6, Eosinophils # (Auto) 0.4, Basophils # (Auto) 0.0, Large Unclassified Cells % 1.5 , Large Unclassified Cells # 0.1, Anion Gap 4L, Glomerular Filtration Rate > 60.0, Blood Urea Nitrogen 23H, Creatinine 0.71, Sodium Level 147H, Potassium Level 3.5, Chloride Level 108H, Carbon Dioxide Level 35H, Calcium Level 7.8L, Magnesium Level 2.0 08/24/16 11:32: Bedside Glucose (Misc Panel) 193H CBC/BMP Laboratory Tests 08/24/16 05:25 Red Blood Count 3.53 L, Mean Corpuscular Volume 90.2, Mean Corpuscular Hemoglobin 29.5, Mean Corpuscular Hemoglobin Concent 32.7, Red Cell Distribution Width 15.2 H, Neutrophils (%) (Auto) 62.2, Lymphocytes (%) (Auto) 21.2 L, Monocytes (%) (Auto) 8.0 H, Eosinophils (%) (Auto) 6.3 H, Basophils (%) (Auto) 0.7, Neutrophils # (Auto) 4.3, Lymphocytes # (Auto) 1.6, Monocytes # ( Auto) 0.6, Eosinophils # (Auto) 0.4, Basophils # (Auto) 0.0, Calcium Level 7.8 L Microbiology Microbiology 08/22/16 Blood Culture - Preliminary, Resulted No Growth after 48 hours. All Specime... 08/22/16 Blood Culture - Preliminary, Resulted No Growth after 48 hours. All Specime... KELECHI ARRIOLA August 24, 2016 12:49
[2016-08-24 14:00] VITALS: BP 170/76
[2016-08-24] MEDS: LEVEMIR (INSULIN DETEMIR) 1 UNITS/0.01ML SC SCH (20:52)
[2016-08-24 22:00] VITALS: BP 141/69
--- NOTE | 2016-08-24 22:56 | ECHO ---
DATE OF PROCEDURE: 08/24/2016 REFERRING PHYSICIAN: Sherley Beaulieu MD INDICATION: Dyspnea. HEIGHT: 163 cm WEIGHT: 99 kg MEASUREMENTS: Left ventricle diastole: 4.6 cm Ventricular septum: 1.18 cm Posterior wall: 1.03 cm Left atrium: 3.9 cm Aortic root: 3.1 cm LVOT: 1.9 cm Inferior vena cava: 3.1 cm DOPPLER MEASUREMENTS: Aortic valve velocity: 158 cm/s LVOT velocity: 109 cm/s LVOT VTI: 23.1 cm Very mild mitral regurgitation. Mitral E velocity: 89.3 cm/s Mitral A velocity: 113 cm/s Mitral deceleration time: 176 ms Pulmonary artery systolic pressure 33 mmHg by pulmonary acceleration time method. MITRAL ANNULAR TISSUE DOPPLER: E prime septal: 5.1 cm/s E prime lateral: 7.3 cm/s DESCRIPTION: Rhythm was sinus. This is a moderately technically difficult echocardiogram. No pericardial effusion. CONCLUSIONS: 1. Normal left ventricle internal dimensions and wall thickness. No left ventricle (LV) regional wall motion abnormalities. Normal LV systolic function. Left ventricular ejection fraction (LVEF) 65% by visual estimate. 2. Grade 1 LV diastolic dysfunction (impaired relaxation filling pattern). The presence of a B-notch on the mitral valve M-mode pattern suggestive of elevated left ventricle and diastolic pressure. 3. Mild left atrial dilatation. 4. Inferior vena cava plethora suggestive of elevated central venous pressure of at least 20 mmHg. Suggestive of mild elevation of pulmonary artery systolic pressure. 5. Mild aortic valve sclerosis of a three-cuspid aortic valve. No aortic regurgitation. 6. Mild mitral annular calcification. Very mild mitral regurgitation.
[2016-08-25 06:00] VITALS: BP 137/76
[2016-08-25 06:51] LABS: BASO % 0.7 % (0.0-1.0); EOS # 0.4 K/mm3 (0.0-0.50); EOS % 6.6 % (0.0-3.0); LARGE UNSTAINED CELL # 0.1 K/mm3 (0.0-0.4); LARGE UNSTAINED CELL % 1.9 % (0.0-4.0); LYMPH # 1.5 K/mm3 (1.5-4.5); LYMPH % 23.8 % (24.0-44.0); MEAN CORPUSCULAR HEMOGLOBIN 30.3 pg (27.0-33.0); MEAN CORPUSCULAR HGB CONC 32.7 g/dl (32.0-36.5); MEAN CORPUSCULAR VOLUME 92.9 fl (80.0-96.0); MONO # 0.5 K/mm3 (0.0-0.8); MONO % 8.2 % (0.0-5.0); NEUTROPHILS # 3.6 K/mm3 (1.8-7.7); NEUTROPHILS % 58.9 % (36.0-66.0); PLATELET COUNT, AUTOMATED 155 k/mm3 (150-450); RED CELL DISTRIBUTION WIDTH 14.9 % (11.5-14.5); WHITE BLOOD COUNT 6.2 K/mm3 (4.0-10.0)
[2016-08-25 07:03] LABS: BLOOD UREA NITROGEN 19 MG/DL (7-18); CREATININE FOR GFR 0.65 MG/DL (0.55-1.02); GLUCOSE, FASTING 72 MG/DL (80-110)
[2016-08-25 07:04] LABS: ANION GAP 8 MEQ/L (8-16); CALCIUM LEVEL 7.9 MG/DL (8.8-10.2); CARBON DIOXIDE LEVEL 31 MEQ/L (21-32); CHLORIDE LEVEL 108 MEQ/L (98-107); GLOMERULAR FILTRATION RATE > 60.0 (>45); MAGNESIUM LEVEL 2.1 MG/DL (1.8-2.4); POTASSIUM SERUM 3.4 MEQ/L (3.5-5.1); SODIUM LEVEL 147 MEQ/L (136-145)
[2016-08-25] MEDS: HumaLOG INSULIN (NovoLOG) PER UNIT SC SCH ×4 (07:30→21:41)
[2016-08-25] MEDS: FERROUS SULFATE 325MG TAB PO SCH (08:39)
[2016-08-25] MEDS: LISINOPRIL 20 MG TAB PO SCH (08:39)
[2016-08-25] MEDS: ASPIRIN 81 MG ENTERIC TAB PO SCH (08:39)
[2016-08-25] MEDS: FUROSEMIDE 40 MG/4 ML VIAL (J1940) IV SCH (08:39)
[2016-08-25] MEDS: amLODIPine 10 MG TAB PO SCH (08:39)
--- NOTE | 2016-08-25 13:10 | IPNPDOC ---
Subjective Date Seen The patient was seen on 08/25/16. Subjective Chief Complaint/HPI The patient is a 71-year-old female admitted with a reason for visit of Shortness Of Breath. General: Denies: ROS Unobtainable, Chills, Night Sweats, Fatigue, Malaise, Normal Appetite, Other Symptoms Constitutional: Denies: Chills, Fever, Malaise, Night Sweats, Weakness, Fatigue , Weight Loss, Lethargy, Other Eyes: Denies: Pain, Vision change, Conjunctivae inflammation, Eyelid inflammation, Redness, Other ENT: Denies: Head Aches, Ear Pain, Dysphagia, Sinus Congestion, Post Nasal Drip , Sore Throat, Epistaxis, Other Symptoms Skin: Denies: Rash, Lesions, Jaundice, Bruising, Itching, Dry, Breakdown, Nail Changes, Other Pulmonary: Reports: Dyspnea, Cough, Denies: Pleuritic Chest Pain, Other Symptoms Cardiovascular: Denies: Chest Pain, Palpitations, Orthopnea, Paroxysmal Noc. Dyspnea, Edema, Lt Headedness, Other Symptoms Gastrointestinal: Denies: Nausea, Vomiting, Abdominal Pain, Diarrhea, Constipation, Melena, Hematochezia, Other Symptoms Genitourinary: Denies: Dysuria, Frequency, Incontinence, Hematuria, Retention, Other Symptoms Objective Physical Examination General Exam: Positive: Alert, Cooperative, No Acute Distress Eye Exam: Positive: Conjunctiva & lids normal, EOMI, Negative: Sclera icteric, Ptosis ENT Exam: Positive: Atraumatic, Nares Patent Neck Exam: Positive: Supple, Negative: JVD Chest Exam: Positive: Wheezing (inspiratory wheeze right lower lobe), Negative: Rales, Rhonchi, Diminished Heart Exam: Positive: Rate Normal, Regular Rhythm, Normal S1, Normal S2, Negative: Tachycardic, Bradycardic Abdomen Exam: Positive: Normal bowel sounds, Soft, Negative: BS Hyperactive, BS Hypoactive, Tenderness, Hepatospenomegaly Extremity Exam: Positive: Edema (+1 pitting bilateral lower extremity), Tenderness (left lower extremity pretibial edema), Negative: Clubbing, Cyanosis Skin Exam: Positive: Breakdown (grade 1 pressure ulcer back of right heel) Psych Exam: Positive: Mental status NL Assessment /Plan Problems (1) Shortness of breath Status: Acute Response to Treatment: Stable Problem Text: Likely secondary to acute decompensated congestive heart failure Echo reveals diastolic failure transition to PO Lasix therapy Strict I&O Daily weights Elevate head of bed 30 Fluid restriction 2500 mL (2) Diabetes mellitus Status: Chronic Problem Text: Sliding scale insulin (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 Response to Treatment: Stable Problem Text: x-ray of ankle and foot did not demonstrate fracture or break pt for wound care (4) HTN (hypertension) Status: Chronic Response to Treatment: Stable Problem Text: continue to monitor Will continue home medications Plan/VTE VTE Prophylaxis Ordered?: Yes (mechanical) Plan/Urinary Catheter Reason for insertion/continuin: Other-document below Plan Diet: Continue Current Activity: Continue Current Medications: Change to PO Diagnostics: Repeat Labs in AM Anticipated Discharge: Home Disposition PO lasix today, anticipate discharge in 24 hours back to [facility] living. VS, I&O, 24H, Fishbone Vital Signs/I&O Vital Signs Date Time Temp Pulse Resp B/P (MAP) Pulse Ox O2 Delivery O2 Flow Rate FiO2 08/25/16 08:40 Room Air 08/25/16 08:39 83 174/84 08/25/16 08:38 91 08/25/16 06:00 98.0 20 2.0 I&O- Last 24 Hours up to 6 AM 08/25/16 06:00 Intake Total 1800 ml Output Total 1200 ml Balance 600 ml Laboratory Data 24H LABS Laboratory Tests 2 08/24/16 16:52: Bedside Glucose (Misc Panel) 277H 08/24/16 20:38: Bedside Glucose (Misc Panel) 194H 08/25/16 06:18: White Blood Count 6.2, Red Blood Count 3.55L, Hemoglobin 10.8L, Hematocrit 33.0L , Mean Corpuscular Volume 92.9, Mean Corpuscular Hemoglobin 30.3, Mean Corpuscular Hemoglobin Concent 32.7, Red Cell Distribution Width 14.9H, Platelet Count 155, Neutrophils (%) (Auto) 58.9, Lymphocytes (%) (Auto) 23.8L, Monocytes (%) (Auto) 8.2H, Eosinophils (%) (Auto) 6.6H, Basophils (%) (Auto) 0.7 , Neutrophils # (Auto) 3.6, Lymphocytes # (Auto) 1.5, Monocytes # (Auto) 0.5, Eosinophils # (Auto) 0.4, Basophils # (Auto) 0.0, Large Unclassified Cells % 1.9 , Large Unclassified Cells # 0.1, Anion Gap 8, Glomerular Filtration Rate > 60.0 , Blood Urea Nitrogen 19H, Creatinine 0.65, Sodium Level 147H, Potassium Level 3.4L, Chloride Level 108H, Carbon Dioxide Level 31, Calcium Level 7.9L, Magnesium Level 2.1 08/25/16 11:31: Bedside Glucose (Misc Panel) 128H CBC/BMP Laboratory Tests 08/25/16 06:18 Red Blood Count 3.55 L, Mean Corpuscular Volume 92.9, Mean Corpuscular Hemoglobin 30.3, Mean Corpuscular Hemoglobin Concent 32.7, Red Cell Distribution Width 14.9 H, Neutrophils (%) (Auto) 58.9, Lymphocytes (%) (Auto) 23.8 L, Monocytes (%) (Auto) 8.2 H, Eosinophils (%) (Auto) 6.6 H, Basophils (%) (Auto) 0.7, Neutrophils # (Auto) 3.6, Lymphocytes # (Auto) 1.5, Monocytes # ( Auto) 0.5, Eosinophils # (Auto) 0.4, Basophils # (Auto) 0.0, Calcium Level 7.9 L Microbiology Microbiology 08/22/16 Blood Culture - Preliminary, Resulted No Growth after 72 hours. All specime... 08/22/16 Blood Culture - Preliminary, Resulted No Growth after 72 hours. All specime... EARLINE BARRIENTOS MD August 25, 2016 13:10
[2016-08-25] MEDS ORDERED: POTASSIUM CHLORIDE 10 MEQ SR TABLET PO ONE (13:15)
[2016-08-25 14:00] VITALS: BP 140/80
[2016-08-25] MEDS: LEVEMIR (INSULIN DETEMIR) 1 UNITS/0.01ML SC SCH (21:42)
[2016-08-25 22:00] VITALS: BP 138/63
[2016-08-26 06:00] VITALS: BP 159/77
[2016-08-26 06:14] LABS: BASO % 0.5 % (0.0-1.0); EOS # 0.4 K/mm3 (0.0-0.50); EOS % 5.1 % (0.0-3.0); LARGE UNSTAINED CELL # 0.1 K/mm3 (0.0-0.4); LARGE UNSTAINED CELL % 1.4 % (0.0-4.0); LYMPH # 1.6 K/mm3 (1.5-4.5); LYMPH % 22.2 % (24.0-44.0); MEAN CORPUSCULAR HGB CONC 32.6 g/dl (32.0-36.5); MEAN CORPUSCULAR VOLUME 91.8 fl (80.0-96.0); MONO # 0.5 K/mm3 (0.0-0.8); MONO % 7.7 % (0.0-5.0); NEUTROPHILS # 4.4 K/mm3 (1.8-7.7); PLATELET COUNT, AUTOMATED 182 k/mm3 (150-450); RED CELL DISTRIBUTION WIDTH 14.8 % (11.5-14.5)
[2016-08-26 06:31] LABS: ANION GAP 4 MEQ/L (8-16); BLOOD UREA NITROGEN 18 MG/DL (7-18); CALCIUM LEVEL 8.3 MG/DL (8.8-10.2); CARBON DIOXIDE LEVEL 33 MEQ/L (21-32); CHLORIDE LEVEL 108 MEQ/L (98-107); CREATININE FOR GFR 0.71 MG/DL (0.55-1.02); GLOMERULAR FILTRATION RATE > 60.0 (>45); GLUCOSE, FASTING 114 MG/DL (80-110); MAGNESIUM LEVEL 2.1 MG/DL (1.8-2.4); POTASSIUM SERUM 4.1 MEQ/L (3.5-5.1); SODIUM LEVEL 145 MEQ/L (136-145)
[2016-08-26] MEDS: ASPIRIN 81 MG ENTERIC TAB PO SCH (08:12)
[2016-08-26] MEDS: HumaLOG INSULIN (NovoLOG) PER UNIT SC SCH ×2 (08:12→12:24)
[2016-08-26] MEDS: FERROUS SULFATE 325MG TAB PO SCH (08:12)
[2016-08-26] MEDS: amLODIPine 10 MG TAB PO SCH (08:13)
[2016-08-26] MEDS: LISINOPRIL 20 MG TAB PO SCH (08:13)
[2016-08-26] MEDS ORDERED: LISI-538 PO ×2 (08:41→11:04)
[2016-08-26] MEDS ORDERED: FURO40TA2 PO ×3 (08:41→13:08)
[2016-08-26] MEDS ORDERED: LISINOPRIL 20 MG TAB PO ONE (08:45)
[2016-08-26] MEDS ORDERED: FUROSEMIDE 40 MG TAB PO SCH (09:00)
[2016-08-26 09:19] VITALS: BP 175/82
[2016-08-26] MEDS ORDERED: ACETAMINOPHEN TAB 650MG DOSE (2X325MG) PO ONE (09:45)
--- NOTE | 2016-08-26 11:17 | DS.PDOC ---
Discharge Summary General Date of Admission Aug 22, 2016 at 16:42 Date of Discharge 08/26/16 Discharge Summary PROCEDURES PERFORMED DURING STAY: [None]. DISCHARGE DIAGNOSES: 1. CHF - diastolic dysfunction 2. Diabetes 3. Hypertension 4. Charcot foot with skin tear COMPLICATIONS/CHIEF COMPLAINT: Shortness Of Breath. HOSPITAL COURSE: 71 female presented for right foot swelling with chronic ulcer oozing pus. Also complained of SOB worsening over the past 3-4 months, with orthopnea. Patient admitted for suspected decompensated heart failure. Responded well to diuresis with furosemide. Patient has history of right charcot foot, and had a skin tear secondary to trauma. This was addressed with PT/wound care. Hospital course significant for elevated blood pressures addressed with medication changes. DISCHARGE MEDICATIONS: Please see below. ALLERGIES: Please see below. PHYSICAL EXAMINATION ON DISCHARGE: VITAL SIGNS: Please see below. GENERAL: NAD HEENT: NC/AT, EOMI, PERRL NECK: supple CARDIOVASCULAR EXAMINATION: +S1S2, RRR RESPIRATORY EXAMINATION: CTA B/L ABDOMINAL EXAMINATION: soft, NT, +BS EXTREMITIES: trace peripheral edema PSYCHIATRIC EXAMINATION: AAOx3 LABORATORY DATA: Please see below. ACTIVITY: [As tolerated]. DIET: 2 gram sodium, carb consistent, 2500 cc daily fluid restriction DISCHARGE INSTRUCTIONS: 1. PCP in 3-7 days. 2. Wound care as directed. DISCHARGE CONDITION: [Stable]. TIME SPENT ON DISCHARGE: Greater than 30 minutes. Vital Signs/I&Os Vital Signs Date Time Temp Pulse Resp B/P (MAP) Pulse Ox O2 Delivery O2 Flow Rate FiO2 08/26/16 09:19 175/82 08/26/16 08:13 89 08/26/16 06:00 98.4 18 90 Room Air 08/25/16 06:00 2.0 I&O- Last 24 Hours up to 6 AM 08/26/16 05:59 Intake Total 880 ml Output Total 3100 ml Balance -2220 ml Laboratory Data Labs 24H Laboratory Tests 2 08/25/16 11:31: Bedside Glucose (Misc Panel) 128H 08/25/16 16:21: Bedside Glucose (Misc Panel) 202H 08/25/16 19:58: Bedside Glucose (Misc Panel) 182H 08/26/16 05:41: White Blood Count 7.0, Red Blood Count 3.77L, Hemoglobin 11.3L, Hematocrit 34.6L , Mean Corpuscular Volume 91.8, Mean Corpuscular Hemoglobin 30.0, Mean Corpuscular Hemoglobin Concent 32.6, Red Cell Distribution Width 14.8H, Platelet Count 182, Neutrophils (%) (Auto) 63.0, Lymphocytes (%) (Auto) 22.2L, Monocytes (%) (Auto) 7.7H, Eosinophils (%) (Auto) 5.1H, Basophils (%) (Auto) 0.5 , Neutrophils # (Auto) 4.4, Lymphocytes # (Auto) 1.6, Monocytes # (Auto) 0.5, Eosinophils # (Auto) 0.4, Basophils # (Auto) 0.0, Large Unclassified Cells % 1.4 , Large Unclassified Cells # 0.1, Anion Gap 4L, Glomerular Filtration Rate > 60.0, Blood Urea Nitrogen 18, Creatinine 0.71, Sodium Level 145, Potassium Level 4.1#, Chloride Level 108H, Carbon Dioxide Level 33H, Calcium Level 8.3L, Magnesium Level 2.1 CBC/BMP Laboratory Tests 08/26/16 05:41 Red Blood Count 3.77 L, Mean Corpuscular Volume 91.8, Mean Corpuscular Hemoglobin 30.0, Mean Corpuscular Hemoglobin Concent 32.6, Red Cell Distribution Width 14.8 H, Neutrophils (%) (Auto) 63.0, Lymphocytes (%) (Auto) 22.2 L, Monocytes (%) (Auto) 7.7 H, Eosinophils (%) (Auto) 5.1 H, Basophils (%) (Auto) 0.5, Neutrophils # (Auto) 4.4, Lymphocytes # (Auto) 1.6, Monocytes # ( Auto) 0.5, Eosinophils # (Auto) 0.4, Basophils # (Auto) 0.0, Calcium Level 8.3 L FSBS Laboratory Tests Test 08/25/16 11:31 08/25/16 16:21 08/25/16 19:58 Range/Units Bedside Glucose (Misc Panel) 128 202 182 80-115 MG/DL Microbiology Microbiology 08/22/16 Blood Culture - Preliminary, Resulted No Growth after 72 hours. All specime... 08/22/16 Blood Culture - Preliminary, Resulted No Growth after 72 hours. All specime... Discharge Medications Scheduled Amlodipine Besylate (Amlodipine Besylate) 10 Mg Tab, 10 MG PO DAILY, (Reported) Aspirin (Aspirin EC) 81 Mg Tab, 81 MG PO DAILY, (Reported) Ferrous Sulfate (Ferrous Sulfate) 325 Mg Tab, 325 MG PO DAILY, (Reported) Folic Acid (Folic Acid) 1 Mg Tab, 1 MG PO DAILY, (Reported) Furosemide (Furosemide) 40 Mg Tab, 40 MG PO DAILY Insulin Detemir (Levemir) 1 Units/0.01 Ml Susp, 20 UNITS SC QHS, (Reported) Lisinopril (Lisinopril) 20 Mg Tab, 40 MG PO DAILY Metformin Hydrochloride (Metformin HCl) 500 Mg Tab, 500 MG PO BID, (Reported) Polyethylene Glycol (Systane 0.4-0.3 %) 15 Ml Ashlee, 1 DROP OU BID, (Reported) Scheduled PRN (Mag-Al 200-200 mg/5Ml) 1 Liq Liq, 30 ML PO DAILY PRN for CONSTIPATION, ( Reported) Acetaminophen (Acetaminophen) 325 Mg Tab, 650 MG PO Q6H PRN for PAIN, (Reported) Magnesium Hydroxide (Milk of Magnesia 400 mg/5Ml) 1 Angela Angela, 30 ML PO DAILY PRN for CONSTIPATION, (Reported) Melatonin (Melatonin) 5 Mg Tab, 5 MG PO QHS PRN for INSOMNIA, (Reported) Polyethylene Glycol (Miralax) 1 Pow Pow, 17 GM PO DAILY PRN for CONSTIPATION, ( Reported) Allergies Coded Allergies: Latex (Unverified Allergy, Intermediate, RASH, 08/22/16) EARLINE BARRIENTOS MD August 26, 2016 11:17
[2016-08-26] MEDS ORDERED: LISI40TAB PO (13:08)
== END 2016-08-26 13:27 | DRG 292 ==
LOC: EDBD 11:10 → M ED 11:54 → M ED INP 16:42 → M MSPAV 18:14
PROVIDERS: ADMIT Internal Medicine; ATTEND Internal Medicine
DX: I11.0 Hypertensive heart disease with heart failure (principal); E87.0 Hyperosmolality and hypernatremia; I50.33 Acute on chronic diastolic (congestive) heart failure; E11.40 Type 2 diabetes mellitus with diabetic neuropathy, unspecified; L89.619 Pressure ulcer of right heel, unspecified stage; E87.6 Hypokalemia; E11.610 Type 2 diabetes mellitus with diabetic neuropathic arthropathy; Z79.82 Long term (current) use of aspirin; Z79.4 Long term (current) use of insulin; Z79.899 Other long term (current) drug therapy; Z91.040 Latex allergy status; Z89.412 Acquired absence of left great toe; Z90.710 Acquired absence of both cervix and uterus; Z83.3 Family history of diabetes mellitus; Z87.891 Personal history of nicotine dependence

== ENCOUNTER → 2017-02-18 | Outpatient (REF) | payer MEDICARE, OTHER ==
[~2017-02-18] MED LIST changes: -ACET-654 PO; +ACET1TAB17 PO; +ASPI81TA24 PO; +FERR1TAB8 PO; -FOLI1TAB2 PO; +FOLI1TAB4 PO; +FURO20TA2 PO; +FURO40TA2 PO; +INSUDET SC; +LISI40TAB PO; +MAG-LIQ PO; -MELA5TAB14 PO; +MELA5TAB17 PO; +METF500T13 PO; +MILKSUS5 PO; +MIRA33504 PO; +SYST1SOL OU
== END ==
LOC: M LAB REF 15:00
PROVIDERS: ATTEND Internal Medicine Cardiovascular Disease
DX: R80.9 Proteinuria, unspecified (principal)

== ENCOUNTER → 2017-03-02 | Outpatient (REF) | payer OTHER | PROVIDERS: ATTEND Internal Medicine Cardiovascular Disease | DX: R80.9 Proteinuria, unspecified (principal) ==

== ENCOUNTER → 2017-03-03 | Outpatient (REF) | payer OTHER ==
[2017-03-03 11:15] LABS: TOTAL PROTEIN 5.2 GM/DL (6.4-8.2)
[2017-03-04 12:42] LABS: ALBUMIN 2.85 GM/DL (3.29-5.55); ALBUMIN % 54.9 % (55.8-66.1); GAMMA GLOBULIN % 11.1 % (11.1-18.8)
== END ==
PROVIDERS: ATTEND Internal Medicine Cardiovascular Disease
DX: R80.9 Proteinuria, unspecified (principal)

== ENCOUNTER → 2018-01-04 | Outpatient (REF) | payer OTHER, MEDICAID ==
[2018-01-04 09:40] LABS: BASO # 0.1 10^3/uL (0.0-0.2); BASO % 0.8 % (0.0-1.0); EOS # 0.2 10^3/uL (0.0-0.50); HEMOGLOBIN 10.3 g/dl (12.0-15.5); IMMATURE GRANULOCYTE % 0.3 % (0-3.0); LYMPH # 1.5 10^3/uL (1.5-4.5); LYMPH % 20.4 % (24.0-44.0); MEAN CORPUSCULAR HEMOGLOBIN 29.7 pg (27.0-33.0); MEAN CORPUSCULAR HGB CONC 32.2 g/dl (32.0-36.5); MEAN CORPUSCULAR VOLUME 92.2 fl (80.0-96.0); MONO # 0.7 10^3/uL (0.0-0.8); MONO % 9.9 % (0.0-5.0); NEUTROPHILS # 4.9 10^3/uL (1.8-7.7); NEUTROPHILS % 66.6 % (36.0-66.0); PLATELET COUNT, AUTOMATED 158 10^3/uL (150-450); RED BLOOD COUNT 3.47 10^6/uL (4.00-5.40); RED CELL DISTRIBUTION WIDTH 13.2 % (11.5-14.5); WHITE BLOOD COUNT 7.4 10^3/uL (4.0-10.0)
[2018-01-04 11:25] LABS: ALBUMIN 2.7 GM/DL (3.2-5.2); ANION GAP 7 MEQ/L (8-16); BLOOD UREA NITROGEN 40 MG/DL (7-18); CALCIUM LEVEL 8.2 MG/DL (8.8-10.2); CARBON DIOXIDE LEVEL 24 MEQ/L (21-32); CHLORIDE LEVEL 116 MEQ/L (98-107); CREATININE FOR GFR 1.25 MG/DL (0.55-1.30); GLOMERULAR FILTRATION RATE 45.1 (>39); GLUCOSE, FASTING 100 MG/DL (70-100); PHOSPHORUS LEVEL 4.2 MG/DL (2.5-4.9); POTASSIUM SERUM 4.9 MEQ/L (3.5-5.1); SODIUM LEVEL 147 MEQ/L (136-145)
[2018-01-04 20:11] LABS: PTH INTACT 137.3 PG/ML (18.5-88.0)
[2018-01-04 23:43] LABS: APPEARANCE, URINE TURBID (CLEAR); BACTERIA, URINE AUTO 3+ (NEGATIVE); BILIRUBIN, URINE AUTO NEGATIVE (NEGATIVE); BLOOD, URINE BLOOD NEGATIVE (NEGATIVE); COLOR, URINE YELLOW (YELLOW); GLUCOSE, URINE (UA) AUTO NEGATIVE (NEGATIVE); KETONE, URINE AUTO NEGATIVE (NEGATIVE); LEUKOCYTE ESTERASE, URINE AUTO 2+ (NEGATIVE); MUCUS, URINE LARGE (NEGATIVE); NITRITE, URINE AUTO NEGATIVE (NEGATIVE); PROTEIN, URINE AUTO 3+ mg/dL (NEGATIVE); RBC, URINE AUTO 32 /HPF (0-3); SPECIFIC GRAVITY URINE AUTO 1.017 (1.002-1.035); SQUAMOUS EPITHELIAL CELL UR AU 5 /HPF (0-6); TRIPLE PHOSPHATE CRYSTALS SMALL; UROBILINOGEN, URINE AUTO 0.2 mg/dL (0.0-2.0); WBC, URINE AUTO 5 /HPF (0-3)
== END ==
DX: M14.671 Charcot's joint, right ankle and foot (principal); E11.618 Type 2 diabetes mellitus with other diabetic arthropathy
CPT/HCPCS: 80069

== ENCOUNTER → 2018-01-21 | Outpatient (REF) | payer OTHER, MEDICAID ==
[2018-01-21 14:09] LABS: APPEARANCE, URINE CLOUDY (CLEAR); BACTERIA, URINE AUTO 1+ (NEGATIVE); BILIRUBIN, URINE AUTO NEGATIVE (NEGATIVE); BLOOD, URINE BLOOD 1+ (NEGATIVE); COLOR, URINE YELLOW (YELLOW); GLUCOSE, URINE (UA) AUTO NEGATIVE (NEGATIVE); KETONE, URINE AUTO NEGATIVE (NEGATIVE); LEUKOCYTE ESTERASE, URINE AUTO 3+ (NEGATIVE); NITRITE, URINE AUTO NEGATIVE (NEGATIVE); PROTEIN, URINE AUTO 2+ mg/dL (NEGATIVE); RBC, URINE AUTO 3 /HPF (0-3); SPECIFIC GRAVITY URINE AUTO 1.009 (1.002-1.035); SQUAMOUS EPITHELIAL CELL UR AU 0 /HPF (0-6); UROBILINOGEN, URINE AUTO 0.2 mg/dL (0.0-2.0); WBC, URINE AUTO TNTC /HPF (0-3)
== END ==
LOC: M LAB REF 13:38
DX: R30.0 Dysuria (principal)

== ENCOUNTER → 2018-01-25 | Outpatient (REF) | payer OTHER, MEDICAID ==
[2018-01-25 10:25] LABS: BASO # 0.1 10^3/uL (0.0-0.2); BASO % 1.1 % (0.0-1.0); EOS # 0.2 10^3/uL (0.0-0.50); EOS % 2.2 % (0.0-3.0); HEMATOCRIT 33.2 % (36.0-47.0); HEMOGLOBIN 10.8 g/dl (12.0-15.5); IMMATURE GRANULOCYTE % 0.4 % (0-3.0); LYMPH # 1.8 10^3/uL (1.5-4.5); LYMPH % 21.7 % (24.0-44.0); MEAN CORPUSCULAR HEMOGLOBIN 30.3 pg (27.0-33.0); MEAN CORPUSCULAR HGB CONC 32.5 g/dl (32.0-36.5); MONO # 0.9 10^3/uL (0.0-0.8); MONO % 10.7 % (0.0-5.0); NEUTROPHILS # 5.3 10^3/uL (1.8-7.7); NEUTROPHILS % 63.9 % (36.0-66.0); PLATELET COUNT, AUTOMATED 164 10^3/uL (150-450); RED BLOOD COUNT 3.57 10^6/uL (4.00-5.40); RED CELL DISTRIBUTION WIDTH 13.1 % (11.5-14.5); WHITE BLOOD COUNT 8.2 10^3/uL (4.0-10.0)
[2018-01-25 11:02] LABS: PTH INTACT 107.2 PG/ML (18.5-88.0)
[2018-01-25 11:30] LABS: ALBUMIN 2.7 GM/DL (3.2-5.2); ANION GAP 10 MEQ/L (8-16); BLOOD UREA NITROGEN 48 MG/DL (7-18); CALCIUM LEVEL 8.2 MG/DL (8.8-10.2); CARBON DIOXIDE LEVEL 24 MEQ/L (21-32); CHLORIDE LEVEL 111 MEQ/L (98-107); CREATININE FOR GFR 1.73 MG/DL (0.55-1.30); FERRITIN 201 NG/ML (8-252); GLUCOSE, FASTING 124 MG/DL (70-100); IRON (FE) 69 UG/DL (50-170); PHOSPHORUS LEVEL 3.9 MG/DL (2.5-4.9); POTASSIUM SERUM 4.9 MEQ/L (3.5-5.1); SODIUM LEVEL 145 MEQ/L (136-145); TOTAL IRON BINDING CAPACITY 238 UG/DL (250-450)
[2018-01-25 16:13] LABS: APPEARANCE, URINE CLEAR (CLEAR); BACTERIA, URINE AUTO NEGATIVE (NEGATIVE); BILIRUBIN, URINE AUTO NEGATIVE (NEGATIVE); BLOOD, URINE BLOOD 1+ (NEGATIVE); COLOR, URINE STRAW (YELLOW); GLUCOSE, URINE (UA) AUTO 1+ mg/dL (NEGATIVE); KETONE, URINE AUTO NEGATIVE (NEGATIVE); LEUKOCYTE ESTERASE, URINE AUTO TRACE (NEGATIVE); NITRITE, URINE AUTO NEGATIVE (NEGATIVE); PROTEIN, URINE AUTO 2+ mg/dL (NEGATIVE); RBC, URINE AUTO 4 /HPF (0-3); SPECIFIC GRAVITY URINE AUTO 1.011 (1.002-1.035); SQUAMOUS EPITHELIAL CELL UR AU 0 /HPF (0-6); UROBILINOGEN, URINE AUTO 0.2 mg/dL (0.0-2.0); WBC, URINE AUTO 7 /HPF (0-3)
== END ==
DX: N18.3 Chronic kidney disease, stage 3 (moderate) (principal); N25.81 Secondary hyperparathyroidism of renal origin; N39.0 Urinary tract infection, site not specified; D50.9 Iron deficiency anemia, unspecified
CPT/HCPCS: 83550

== ENCOUNTER → 2018-03-22 | Outpatient (REF) | payer MEDICARE, OTHER, MEDICAID ==
[~2018-03-22] MED LIST changes: -ACET1TAB17 PO; +ACET1TAB55 PO; -AMLO10TA2 PO; +AMLO10TA5 PO; -AMLO5TAB2 PO; +AMLO5TAB6 PO; +CARV6.25 PO; +FOLI1TAB11 PO; -FOLI1TAB4 PO; +HUMA100I5 SC; +LISI40TA PO; -LISI40TAB PO; +SPIR50TA4 PO
[2018-03-22 09:42] LABS: BASO # 0.1 10^3/uL (0.0-0.2); BASO % 0.6 % (0.0-1.0); EOS # 0.2 10^3/uL (0.0-0.50); EOS % 2.7 % (0.0-3.0); HEMATOCRIT 31.1 % (36.0-47.0); HEMOGLOBIN 9.9 g/dl (12.0-15.5); LYMPH # 1.9 10^3/uL (1.5-4.5); LYMPH % 23.8 % (24.0-44.0); MEAN CORPUSCULAR HEMOGLOBIN 30.3 pg (27.0-33.0); MEAN CORPUSCULAR HGB CONC 31.8 g/dl (32.0-36.5); MEAN CORPUSCULAR VOLUME 95.1 fl (80.0-96.0); MONO # 0.8 10^3/uL (0.0-0.8); MONO % 10.2 % (0.0-5.0); NEUTROPHILS # 4.8 10^3/uL (1.8-7.7); NEUTROPHILS % 62.3 % (36.0-66.0); PLATELET COUNT, AUTOMATED 173 10^3/uL (150-450); RED BLOOD COUNT 3.27 10^6/uL (4.00-5.40); WHITE BLOOD COUNT 7.8 10^3/uL (4.0-10.0)
[2018-03-22 10:13] LABS: BILIRUBIN,TOTAL 0.2 MG/DL (0.2-1.0); CALCIUM LEVEL 8.4 MG/DL (8.8-10.2); CHOLESTEROL RISK RATIO 3.72 (<5); CREATININE FOR GFR 1.63 MG/DL (0.55-1.30); GLOMERULAR FILTRATION RATE 33.2 (>39); POTASSIUM SERUM 4.8 MEQ/L (3.5-5.1); TOTAL PROTEIN 5.8 GM/DL (6.4-8.2)
[2018-03-22 10:48] LABS: HEMOGLOBIN A1c 6.7 %
== END ==
PROVIDERS: ATTEND Internal Medicine
DX: D64.9 Anemia, unspecified (principal); I11.0 Hypertensive heart disease with heart failure; I50.9 Heart failure, unspecified; E11.9 Type 2 diabetes mellitus without complications

== ENCOUNTER → 2018-03-29 | Outpatient (REF) | payer MEDICARE, OTHER, MEDICAID ==
[2018-03-29 10:08] LABS: BASO # 0.1 10^3/uL (0.0-0.2); BASO % 0.7 % (0.0-1.0); EOS # 0.2 10^3/uL (0.0-0.50); EOS % 2.6 % (0.0-3.0); HEMATOCRIT 33.1 % (36.0-47.0); HEMOGLOBIN 10.3 g/dl (12.0-15.5); LYMPH # 1.7 10^3/uL (1.5-4.5); LYMPH % 23.7 % (24.0-44.0); MEAN CORPUSCULAR HEMOGLOBIN 30.1 pg (27.0-33.0); MEAN CORPUSCULAR HGB CONC 31.1 g/dl (32.0-36.5); MEAN CORPUSCULAR VOLUME 96.8 fl (80.0-96.0); MONO # 0.7 10^3/uL (0.0-0.8); MONO % 9.3 % (0.0-5.0); NEUTROPHILS # 4.7 10^3/uL (1.8-7.7); NEUTROPHILS % 63.3 % (36.0-66.0); PLATELET COUNT, AUTOMATED 172 10^3/uL (150-450); RED BLOOD COUNT 3.42 10^6/uL (4.00-5.40); WHITE BLOOD COUNT 7.3 10^3/uL (4.0-10.0)
[2018-03-29 10:27] LABS: ALBUMIN 2.9 GM/DL (3.2-5.2); CALCIUM LEVEL 8.7 MG/DL (8.8-10.2); CREATININE FOR GFR 1.59 MG/DL (0.55-1.30); GLOMERULAR FILTRATION RATE 34.2 (>39); PHOSPHORUS LEVEL 4.4 MG/DL (2.5-4.9); POTASSIUM SERUM 5.8 MEQ/L (3.5-5.1)
[2018-03-29 10:37] LABS: PTH INTACT 105.9 PG/ML (18.5-88.0)
== END ==
PROVIDERS: ATTEND Internal Medicine Nephrology
DX: N18.3 Chronic kidney disease, stage 3 (moderate) (principal); N25.81 Secondary hyperparathyroidism of renal origin

== ENCOUNTER → 2018-04-27 | Outpatient (REF) | payer MEDICARE, OTHER, MEDICAID ==
[2018-04-27 11:33] LABS: BASO # 0.1 10^3/uL (0.0-0.2); BASO % 0.8 % (0.0-1.0); EOS # 0.2 10^3/uL (0.0-0.50); EOS % 2.8 % (0.0-3.0); HEMATOCRIT 30.2 % (36.0-47.0); HEMOGLOBIN 9.8 g/dl (12.0-15.5); LYMPH # 1.6 10^3/uL (1.5-4.5); LYMPH % 18.8 % (24.0-44.0); MEAN CORPUSCULAR HEMOGLOBIN 31.1 pg (27.0-33.0); MEAN CORPUSCULAR HGB CONC 32.5 g/dl (32.0-36.5); MEAN CORPUSCULAR VOLUME 95.9 fl (80.0-96.0); MONO # 0.7 10^3/uL (0.0-0.8); MONO % 8.5 % (0.0-5.0); NEUTROPHILS # 5.8 10^3/uL (1.8-7.7); NEUTROPHILS % 68.6 % (36.0-66.0); PLATELET COUNT, AUTOMATED 137 10^3/uL (150-450); RED BLOOD COUNT 3.15 10^6/uL (4.00-5.40); WHITE BLOOD COUNT 8.5 10^3/uL (4.0-10.0)
== END ==
PROVIDERS: ATTEND Internal Medicine
DX: D64.9 Anemia, unspecified (principal)

== ENCOUNTER → 2018-05-04 | Outpatient (REF) | payer MEDICARE, OTHER, MEDICAID ==
[2018-05-04 11:51] LABS: BASO # 0.1 10^3/uL (0.0-0.2); BASO % 0.7 % (0.0-1.0); EOS # 0.2 10^3/uL (0.0-0.50); EOS % 2.6 % (0.0-3.0); HEMATOCRIT 30.8 % (36.0-47.0); HEMOGLOBIN 9.8 g/dl (12.0-15.5); LYMPH # 1.5 10^3/uL (1.5-4.5); LYMPH % 18.4 % (24.0-44.0); MEAN CORPUSCULAR HEMOGLOBIN 30.6 pg (27.0-33.0); MEAN CORPUSCULAR HGB CONC 31.8 g/dl (32.0-36.5); MEAN CORPUSCULAR VOLUME 96.3 fl (80.0-96.0); MONO # 0.7 10^3/uL (0.0-0.8); MONO % 8.6 % (0.0-5.0); NEUTROPHILS # 5.7 10^3/uL (1.8-7.7); NEUTROPHILS % 69.3 % (36.0-66.0); PLATELET COUNT, AUTOMATED 149 10^3/uL (150-450); WHITE BLOOD COUNT 8.2 10^3/uL (4.0-10.0)
[2018-05-04 12:05] LABS: ALBUMIN 2.9 GM/DL (3.2-5.2); CALCIUM LEVEL 8.6 MG/DL (8.8-10.2); CREATININE FOR GFR 1.52 MG/DL (0.55-1.30); PHOSPHORUS LEVEL 4.6 MG/DL (2.5-4.9)
[2018-05-04 12:10] LABS: PTH INTACT 112.1 PG/ML (18.5-88.0)
== END ==
PROVIDERS: ATTEND Internal Medicine Nephrology
DX: N18.9 Chronic kidney disease, unspecified (principal)

== ENCOUNTER → 2018-06-07 | Outpatient (REF) | payer MEDICARE, OTHER, MEDICAID ==
[2018-06-07 09:58] LABS: BASO # 0.1 10^3/uL (0.0-0.2); BASO % 0.9 % (0.0-1.0); EOS # 0.2 10^3/uL (0.0-0.50); EOS % 2.2 % (0.0-3.0); HEMATOCRIT 30.1 % (36.0-47.0); HEMOGLOBIN 9.5 g/dl (12.0-15.5); LYMPH # 1.3 10^3/uL (1.5-4.5); MEAN CORPUSCULAR HEMOGLOBIN 30.7 pg (27.0-33.0); MEAN CORPUSCULAR HGB CONC 31.6 g/dl (32.0-36.5); MEAN CORPUSCULAR VOLUME 97.4 fl (80.0-96.0); MONO # 0.7 10^3/uL (0.0-0.8); MONO % 10.4 % (0.0-5.0); NEUTROPHILS # 4.6 10^3/uL (1.8-7.7); NEUTROPHILS % 67.2 % (36.0-66.0); PLATELET COUNT, AUTOMATED 154 10^3/uL (150-450); RED BLOOD COUNT 3.09 10^6/uL (4.00-5.40); WHITE BLOOD COUNT 6.8 10^3/uL (4.0-10.0)
[2018-06-07 10:30] LABS: PERCENT SATURATION 20.9 % (13.2-45.0)
[2018-06-10 11:29] LABS: Methylmalonic Acid 264 nmol/L (0-378)
== END ==
PROVIDERS: ATTEND Internal Medicine
DX: D64.9 Anemia, unspecified (principal); G62.9 Polyneuropathy, unspecified

== ENCOUNTER → 2018-07-05 | Outpatient (REF) | payer MEDICARE, OTHER, MEDICAID ==
[2018-07-05 10:34] LABS: BASO # 0.1 10^3/uL (0.0-0.2); BASO % 0.9 % (0.0-1.0); EOS # 0.2 10^3/uL (0.0-0.50); EOS % 2.5 % (0.0-3.0); HEMATOCRIT 31.8 % (36.0-47.0); HEMOGLOBIN 10.1 g/dl (12.0-15.5); LYMPH # 1.9 10^3/uL (1.5-4.5); LYMPH % 25.5 % (24.0-44.0); MEAN CORPUSCULAR HEMOGLOBIN 30.1 pg (27.0-33.0); MEAN CORPUSCULAR HGB CONC 31.8 g/dl (32.0-36.5); MEAN CORPUSCULAR VOLUME 94.9 fl (80.0-96.0); MONO # 0.7 10^3/uL (0.0-0.8); MONO % 9.2 % (0.0-5.0); NEUTROPHILS # 4.6 10^3/uL (1.8-7.7); NEUTROPHILS % 61.5 % (36.0-66.0); PLATELET COUNT, AUTOMATED 158 10^3/uL (150-450); RED BLOOD COUNT 3.35 10^6/uL (4.00-5.40); WHITE BLOOD COUNT 7.5 10^3/uL (4.0-10.0)
[2018-07-05 11:03] LABS: ALBUMIN 2.7 GM/DL (3.2-5.2); CALCIUM LEVEL 8.6 MG/DL (8.8-10.2); CREATININE FOR GFR 1.56 MG/DL (0.55-1.30); GLOMERULAR FILTRATION RATE 34.8 (>39); PHOSPHORUS LEVEL 4.5 MG/DL (2.5-4.9); POTASSIUM SERUM 4.3 MEQ/L (3.5-5.1)
[2018-07-05 11:18] LABS: PTH INTACT 118.8 PG/ML (18.5-88.0)
== END ==
PROVIDERS: ATTEND Internal Medicine Nephrology
DX: N18.9 Chronic kidney disease, unspecified (principal)

== ENCOUNTER → 2018-10-12 | Outpatient (REF) | payer OTHER, MEDICAID ==
[~2018-10-12] MED LIST changes: +ARTIDRO2 OU; +BISA10SU PR; +CALC1CAP31 PO; +CYAN100050 PO; +FLUO20CA8 PO; +HUMU1INJ2 SC; +HYDR100T PO; +INSUNSD SC; +LEVE1INJ5 SC; +LOPE2TAB12 PO; -MELA5TAB17 PO; +MELA5TAB31 PO; +MIRA3350 PO; +NYST1POW9 TOP; +REGL5TAB2 PO; +TORS10TA3 PO; +TORS20TA2 PO; +ZOFR4TAB16 PO
[2018-10-12 10:05] LABS: BASO # 0.1 10^3/uL (0.0-0.2); EOS # 0.2 10^3/uL (0.0-0.50); EOS % 2.2 % (0.0-3.0); HEMATOCRIT 31.7 % (36.0-47.0); LYMPH # 1.7 10^3/uL (1.5-4.5); LYMPH % 22.8 % (24.0-44.0); MEAN CORPUSCULAR HEMOGLOBIN 29.8 pg (27.0-33.0); MEAN CORPUSCULAR HGB CONC 31.5 g/dl (32.0-36.5); MEAN CORPUSCULAR VOLUME 94.3 fl (80.0-96.0); MONO # 0.6 10^3/uL (0.0-0.8); MONO % 8.4 % (0.0-5.0); NEUTROPHILS # 4.8 10^3/uL (1.8-7.7); NEUTROPHILS % 65.2 % (36.0-66.0); PLATELET COUNT, AUTOMATED 164 10^3/uL (150-450); RED BLOOD COUNT 3.36 10^6/uL (4.00-5.40); WHITE BLOOD COUNT 7.3 10^3/uL (4.0-10.0)
[2018-10-12 10:21] LABS: ALBUMIN 2.6 GM/DL (3.2-5.2); CALCIUM LEVEL 8.1 MG/DL (8.8-10.2); CREATININE FOR GFR 1.73 MG/DL (0.55-1.30); GLOMERULAR FILTRATION RATE 30.9 (>39); PHOSPHORUS LEVEL 3.8 MG/DL (2.5-4.9); POTASSIUM SERUM 4.5 MEQ/L (3.5-5.1)
[2018-10-12 10:45] LABS: PTH INTACT 122.2 PG/ML (18.5-88.0)
== END ==
PROVIDERS: ATTEND Internal Medicine Nephrology
DX: N18.3 Chronic kidney disease, stage 3 (moderate) (principal); N25.81 Secondary hyperparathyroidism of renal origin; R80.9 Proteinuria, unspecified

== ENCOUNTER → 2018-11-15 | Outpatient (REF) | payer MEDICARE, OTHER, MEDICAID ==
[2018-11-15 09:30] LABS: BASO % 0.7 % (0.0-1.0); EOS # 0.1 10^3/uL (0.0-0.50); EOS % 1.7 % (0.0-3.0); HEMATOCRIT 28.7 % (36.0-47.0); HEMOGLOBIN 8.8 g/dl (12.0-15.5); LYMPH # 0.9 10^3/uL (1.5-4.5); LYMPH % 16.3 % (24.0-44.0); MEAN CORPUSCULAR HEMOGLOBIN 30.7 pg (27.0-33.0); MEAN CORPUSCULAR HGB CONC 30.7 g/dl (32.0-36.5); MONO # 0.5 10^3/uL (0.0-0.8); MONO % 9.5 % (0.0-5.0); NEUTROPHILS # 3.9 10^3/uL (1.8-7.7); NEUTROPHILS % 71.4 % (36.0-66.0); PLATELET COUNT, AUTOMATED 127 10^3/uL (150-450); RED BLOOD COUNT 2.87 10^6/uL (4.00-5.40); WHITE BLOOD COUNT 5.5 10^3/uL (4.0-10.0)
[2018-11-15 09:42] LABS: HEMOGLOBIN A1c 6.3 %
[2018-11-15 09:48] LABS: ALBUMIN 2.6 GM/DL (3.2-5.2); BILIRUBIN,TOTAL 0.2 MG/DL (0.2-1.0); CALCIUM LEVEL 8.1 MG/DL (8.8-10.2); CHOLESTEROL RISK RATIO 3.404 (<5); CREATININE FOR GFR 1.81 MG/DL (0.55-1.30); GLOMERULAR FILTRATION RATE 29.3 (>39); POTASSIUM SERUM 5.2 MEQ/L (3.5-5.1); TOTAL PROTEIN 4.9 GM/DL (6.4-8.2)
[2018-11-15 09:55] LABS: PTH INTACT 120.4 PG/ML (18.5-88.0)
== END ==
PROVIDERS: ATTEND Internal Medicine Nephrology
DX: D64.9 Anemia, unspecified (principal); I10 Essential (primary) hypertension; E11.9 Type 2 diabetes mellitus without complications; N18.3 Chronic kidney disease, stage 3 (moderate); N25.81 Secondary hyperparathyroidism of renal origin

== ENCOUNTER → 2018-11-25 | Outpatient (CLI) | payer OTHER, MEDICAID ==
[~2018-11-25] MED LIST changes: +ARTI99.0 OU; -ARTIDRO2 OU; -BISA10SU PR; +LOPE2TAB11 PO; -LOPE2TAB12 PO; -REGL5TAB2 PO
[2018-11-25 17:54] LABS: ALBUMIN 2.8 GM/DL (3.2-5.2); BASO # 0.1 10^3/uL (0.0-0.2); CALCIUM LEVEL 8.5 MG/DL (8.8-10.2); CREATININE FOR GFR 1.8 MG/DL (0.55-1.30); EOS # 0.1 10^3/uL (0.0-0.50); GLOMERULAR FILTRATION RATE 29.5 (>39); HEMATOCRIT 29.6 % (36.0-47.0); HEMOGLOBIN 9.1 g/dl (12.0-15.5); MEAN CORPUSCULAR HEMOGLOBIN 30.5 pg (27.0-33.0); MEAN CORPUSCULAR HGB CONC 30.7 g/dl (32.0-36.5); MEAN CORPUSCULAR VOLUME 99.3 fl (80.0-96.0); MONO # 0.6 10^3/uL (0.0-0.8); MONO % 10.4 % (0.0-5.0); NEUTROPHILS # 4.4 10^3/uL (1.8-7.7); NEUTROPHILS % 71.3 % (36.0-66.0); PLATELET COUNT, AUTOMATED 169 10^3/uL (150-450); POTASSIUM SERUM 4.7 MEQ/L (3.5-5.1); RED BLOOD COUNT 2.98 10^6/uL (4.00-5.40); WHITE BLOOD COUNT 6.2 10^3/uL (4.0-10.0)
[2018-11-28 08:16] LABS: IRON (FE) 36 UG/DL (50-170); PERCENT SATURATION 17.8 % (13.2-45.0); TOTAL IRON BINDING CAPACITY 202 UG/DL (250-450)
[2018-11-28 12:02] LABS: FOLATE > 24.0 NG/ML; VITAMIN B12 LEVEL 1539 PG/ML
== END ==
LOC: M SMT 12:59
PROVIDERS: ATTEND Nurse Practitioner Family
DX: N17.9 Acute kidney failure, unspecified (principal); D63.1 Anemia in chronic kidney disease

== ENCOUNTER 2018-11-26 12:45 | Inpatient (IN) | payer MEDICARE, MEDICAID ==
[~2018-11-26] VITALS: Ht 162.6 cm; Wt 105.9 kg
[~2018-11-26 12:45] MED LIST changes: -ARTI99.0 OU; +ARTIDRO2 OU; -HUMU1INJ2 SC; -LEVE1INJ5 SC; -LOPE2TAB11 PO; +LOPE2TAB12 PO; -TORS10TA3 PO
[2018-11-26] MEDS ORDERED: NS 1,000 ML IV SCH (12:57)
[2018-11-26] MEDS ORDERED: METOCLOPRAMIDE INJ 10MG/2ML VIAL (J2765) IV ONE ×2 (13:00→15:00)
--- NOTE | 2018-11-26 13:17 | REP ---
Clinical: Abdominal pain. Comparison: 10/31/2018. Findings: Cardiomegaly is appreciated. Increased pulmonary vasculature with cephalization, indistinct pulmonary vasculature and increased interstitial markings along with bibasilar atelectasis suggest CHF and early pulmonary vascular congestion/interstitial edema. No definite effusion. No pneumothorax. Skeletal structures stable. Impression: Findings suggest cardiomegaly and pulmonary vascular congestion/interstitial edema with basilar atelectasis. Electronically Signed by Champ Levi MD 11/26/2018 01:09 P
[2018-11-26] MEDS ORDERED: TORS10TA3 PO (13:32)
[2018-11-26] MEDS ORDERED: HUMU1INJ2 SC (13:32)
[2018-11-26] MEDS ORDERED: LEVE1INJ5 SC (13:32)
[2018-11-26 13:35] LABS: BASO # 0.1 10^3/uL (0.0-0.2); BASO % 0.8 % (0.0-1.0); EOS # 0.1 10^3/uL (0.0-0.50); EOS % 0.8 % (0.0-3.0); HEMATOCRIT 30.9 % (36.0-47.0); HEMOGLOBIN 9.8 g/dl (12.0-15.5); LYMPH # 0.7 10^3/uL (1.5-4.5); LYMPH % 9.5 % (24.0-44.0); MEAN CORPUSCULAR HEMOGLOBIN 30.7 pg (27.0-33.0); MEAN CORPUSCULAR HGB CONC 31.7 g/dl (32.0-36.5); MEAN CORPUSCULAR VOLUME 96.9 fl (80.0-96.0); MONO # 0.6 10^3/uL (0.0-0.8); MONO % 7.9 % (0.0-5.0); NEUTROPHILS # 5.8 10^3/uL (1.8-7.7); NEUTROPHILS % 80.4 % (36.0-66.0); PLATELET COUNT, AUTOMATED 167 10^3/uL (150-450); RED BLOOD COUNT 3.19 10^6/uL (4.00-5.40); WHITE BLOOD COUNT 7.3 10^3/uL (4.0-10.0)
[2018-11-26 13:37] LABS: INR 1.24; PROTHROMBIN TIME 15.3 SECONDS (11.8-14.0)
[2018-11-26 13:57] LABS: ALBUMIN 2.9 GM/DL (3.2-5.2); ALT/SGPT 22 U/L (12-78); BILIRUBIN,DIRECT < 0.1 MG/DL (0.0-0.2); BILIRUBIN,TOTAL 0.2 MG/DL (0.2-1.0); CK-MB VALUE MASS 4.1 NG/ML (<3.6); CPK CREATINE PHOSPHOKINASE 97 U/L (26-192); LIPASE 38 U/L (73-393); MB/CK RELATIVE INDEX 4.23 (< OR =4); NT-PRO BNP 3111 PG/ML (<125); TOTAL PROTEIN 5.6 GM/DL (6.4-8.2); TROPONIN I < 0.02 NG/ML (< 0.10)
[2018-11-26] MEDS ORDERED: FUROSEMIDE 20 MG/2 ML VIAL (J1940) IV ONE (14:15)
[2018-11-26] MEDS ORDERED: ISOVUE-370 76% 100ML VIAL (Q9967) As Ordered ONE (14:40)
--- NOTE | 2018-11-26 15:20 | REP ---
Clinical: Abdominal pain and intractable vomiting. Technique: Axial contrast enhanced images from the lung bases to the pubic symphysis using 100 ml Isovue 370 intravenous contrast material with coronal and sagittal re-formations. Findings: Lung bases demonstrate bibasilar and lower lobe atelectasis with small left pleural effusion. Liver, pancreas, gallbladder are normal. Spleen includes 1.3 cm benign appearing cyst versus hemangioma. Hyperplastic changes to the bilateral adrenal glands noted. The kidneys demonstrate symmetric likely chronic perinephric stranding without hydroureteronephrosis or obstructing ureteral calculi. The enteric system is without obstruction or acute inflammatory process. Pelvis demonstrates normal bladder and evidence for prior hysterectomy. No ascites. No free air. No adenopathy. Atherosclerotic changes to the aorta and vasculature without aneurysm or dissection. Musculoskeletal structures demonstrate degenerative changes. Impression: 1. No obvious acute abdominopelvic pathology appreciated. 2. Chronic changes as detailed above. 3. Lung bases demonstrate bibasilar atelectasis and small left pleural effusion. Electronically Signed by Champ Levi MD 11/26/2018 03:11 P
--- NOTE | 2018-11-26 15:35 | ECGEPIP ---
[facility] - ED Test Date: 2018-11-26 Pat Name: TABITHA ALEXANDRA Department: Room: - Gender: Female [employer] Se[employer]olste[employer]: : 1945 Requested By: Doris Nelson Order Number: [id number] Reading MD: Doris Nelson Measurements Intervals Fowler Rate: 68 P: 46 LA: 195 QRS: 1 QRSD: 100 T: 50 QT: 423 QTc: 453 Interpretive Statements SINUS RHYTHM NONSPECIFIC T-WAVE ABNORMALITY DELAYED R LA Electronically Signed on 11-26-2018 15:35:23 EDT by Doris Nelson
[2018-11-26] MEDS ORDERED: hydrALAZINE INJ 20 MG/ML VIAL IV STA ×2 (15:37→16:37)
[2018-11-26] MEDS ORDERED: ONDANSETRON 4MG/2ML VIAL (J2405) IV ONE (15:45)
[2018-11-26] MEDS ORDERED: MORPHINE 2 MG/ML 1ML SYRINGE (J2270) IV PRN (17:45)
[2018-11-26] MEDS ORDERED: LABETALOL HCL 100 MG/20 ML VIAL IV PRN (18:00)
[2018-11-26] MEDS ORDERED: POLYVINYL ALCOHOL OPHTH SOLN 15 ML(LIQUITEARS) OU PRN (18:30)
[2018-11-26] MEDS: CALCITRIOL 0.25 MCG CAP (S0169) PO SCH (19:08)
--- NOTE | 2018-11-26 19:15 | HPEPDOC ---
General Date of Admission 8 Date of Service: Nov 26, 2018 Chief Complaint The patient is a 73-year-old female admitted with a reason for visit of N/V/D, Ftt. History of Present Illness 73f hx of dm and htn p/w vomiting. pt is a very poor historian. She tells me this started today. She also complains of suprapubic pain. She is unable to provide me with any further history. Home Medications Scheduled Aspirin (Aspirin EC) 81 Mg Tab, 81 MG PO DAILY, (Reported) Calcitriol (Calcitriol) 0.25 Mcg Capsule, 0.25 MCG PO 5XW, (Reported) MON, TU, WED, , FRI Carvedilol (Carvedilol) 6.25 Mg Tab, 6.25 MG PO BID, (Reported) Cyanocobalamin (Vitamin B-12) (Vitamin B-12) 1,000 Mcg Tablet, 1,000 MCG PO DAILY, (Reported) Ferrous Sulfate (Ferrous Sulfate) 325 Mg Tab, 325 MG PO BID, (Reported) Fluoxetine Hcl (Fluoxetine HCl) 20 Mg Capsule, 20 MG PO DAILY, (Reported) Folic Acid (Folic Acid) 1 Mg Tab, 1 MG PO DAILY, (Reported) Insulin Detemir (Levemir Flextouch) 100 Unit/1 Ml Insuln.pen, 15 UNIT SC QHS, (Reported) Insulin NPH Human Isophane (Humulin N Kwikpen) 100 Unit/1 Ml Insuln.pen, 10 UN ITS SC DAILY, (Reported) AT NOON Torsemide (Torsemide) 10 Mg Tablet, 40 MG PO DAILY, (Reported) hydrALAZINE HCL (Hydralazine HCl) 100 Mg Tablet, 100 MG PO TID, (Reported) Scheduled PRN Acetaminophen (Acetaminophen) 325 Mg Tab, 650 MG PO Q6H PRN for PAIN, (Reported) Loperamide HCl (Imodium A-D) 2 Mg Tablet, 2 MG PO PRN PRN for DIARRHEA, (Report ed) Magnesium Hydroxide (Milk of Magnesia) 1 Angela Angela, 30 ML PO DAILY PRN for CO NSTIPATION, (Reported) Magnesium, Aluminum Hydroxide (Mag-Al Liquid) 1 Liq Liq, 30 ML PO DAILY PRN for CONSTIPATION, (Reported) Melatonin (Melatonin) 5 Mg Tab, 5 MG PO QHS PRN for INSOMNIA, (Reported) Ondansetron HCl (Zofran) 4 Mg Tablet, 4 MG PO Q6H PRN for NAUSEA, (Reported) Polyethylene Glycol 3350 (Miralax) 119 Gm Powder, 17 GM PO DAILY PRN for CONSTIPATION, (Reported) Polyvinyl Alcohol (Artificial Tears) 15 Ml Drops, 1 DROP OU PRN PRN for DRY EYES, (Reported) Allergies Coded Allergies: Latex, Natural Rubber (Verified Allergy, Unknown, Rash, 10/31/18) milk (Verified Allergy, Unknown, 10/31/18) Past Medical History Medical History dm, htn A-FIB/CHADSVASC A-FIB History Current/History of A-Fib/PAF?: No Current PO Anticoag Therapy: No Age/Risk Factor Scoring CHADSVASC: CHADSVASC Response (Comments) Value Age Risk Factor Age 65-74 years old 1 Gender Risk Factor Female 1 Hx of CHF Yes 1 Hx of HTN Yes 1 Hx of Stroke/TIA/or VTE No 0 Hx of Diabetes Yes 1 Hx of Vascular Disease No 0 Total 5 Treatment Treatment ordered: NONE Reason Anticoagulant not given: Not indicated/[id number] Physical Examination General Exam: Positive: Alert, Mild Distress Eye Exam: Positive: PERRLA, Conjunctiva & lids normal, EOMI; Negative: Sclera icteric ENT Exam: Positive: Atraumatic, Mucous membr. moist/pink, Pharynx Normal Neck Exam: Positive: Supple; Negative: JVD, thyromegaly Chest Exam: Positive: Clear to auscultation, Normal air movement Heart Exam: Positive: Rate Normal, Regular Rhythm, Normal S1, Normal S2; Negative: Murmurs, Rubs Abdomen Exam: Positive: Normal bowel sounds, Soft; Negative: Tenderness, Hepatospenomegaly Extremity Exam: Positive: Edema, Normal pulses; Negative: Clubbing, Cyanosis Skin Exam: Positive: Nl turgor and temperature; Negative: Breakdown, Lesion Neuro Exam: Positive: Normal Gait, Normal Speech, Cranial Nerves 3-12 NL, Reflexes 2+ Psych Exam: Positive: Anxiety; Negative: Mental status NL, Memory Intact, Oriented x 3 Vital Signs Vital Signs Date Time Temp Pulse Resp B/P (MAP) Pulse Ox O2 Delivery O2 Flow Rate FiO2 11/26/18 18:05 18 11/26/18 18:00 84 207/92 (130) 91 11/26/18 13:02 96.9 Nasal Cannula 2.0 Laboratory Data Labs 24H Laboratory Tests 2 11/26/18 13:13: Prothrombin Time 15.3H, Prothromb Time International Ratio 1.24, Aspartate Amino Transf (AST/SGOT) 12, Alanine Aminotransferase (ALT/SGPT) 22, Alkaline Phosphat ase 84, Total Bilirubin 0.2, Direct Bilirubin < 0.1, Total Creatine Kinase 97, Creatine Kinase MB 4.1H, Creatine Kinase MB Relative Index 4.23H, Troponin I < 0.02, SS-Vlm-Y-Type Natriuretic Peptide 3111H, Total Protein 5.6L, Albumin 2.9L, Albumin/Globulin Ratio 1.07, Lipase 38L 11/26/18 13:14: Immature Granulocyte % (Auto) 0.6, White Blood Count 7.3, Red Blood Count 3.19L, Hemoglobin 9.8L, Hematocrit 30.9L, Mean Corpuscular Volume 96.9H, Mean Corpuscular Hemoglobin 30.7, Mean Corpuscular Hemoglobin Concent 31.7L, Red Cell Distribution Width 13.3, Platelet Count 167, Neutrophils (%) (Auto) 80.4H, Lymphocytes (%) (Auto) 9.5L, Monocytes (%) (Auto) 7.9H, Eosinophils (%) (Auto) 0.8, Basophils (%) (Auto) 0.8, Neutrophils # (Auto) 5.8, Lymphocytes # (Auto) 0.7L, Monocytes # (Auto) 0.6, Eosinophils # (Auto) 0.1, Basophils # (Auto) 0.1, Nucleated Red Blood Cells % (auto) 0.0 11/26/18 13:17: POC Glucose (Misc Panel) 188H, POC Sodium (Misc Panel) 141, POC Potassium (Misc Panel) 3.9, POC Chloride (Misc Panel) 106, POC Total CO2 (Misc Panel) 25.0, POC Blood Urea Nitrogen (Misc Panel 26, POC Ionized Calcium (Misc Panel) 4.7, POC Creatinine (Misc Panel) 1.4H, POC Hematocrit (Misc Panel) 26.0L 11/26/18 13:25: POC Lactate (Misc Panel) 0.65 11/26/18 14:49: Urine Color STRAW, Urine Appearance CLEAR, Urine pH 7.0, Urine Specific Etta 1.006, Urine Protein 2+H, Urine Glucose (UA) 1+H, Urine Ketones NEGATIVE, Urine Blood 1+H, Urine Nitrite NEGATIVE, Urine Bilirubin NEGATIVE, Urine Urobilinogen 0.2, Urine Leukocyte Esterase TRACEH, Urine WBC (Auto) 6H, Urine RBC (Auto) 14H, Urine Hyaline Casts (Auto) 4, Urine Bacteria (Auto) NEGATIVE, Urine Squamous Epithelial Cells 1, Urine Sperm (Auto) CBC/BMP Laboratory Tests 11/26/18 13:14 Red Blood Count 3.19 L, Mean Corpuscular Volume 96.9 H, Mean Corpuscular Hemoglobin 30.7, Mean Corpuscular Hemoglobin Concent 31.7 L, Red Cell Distribution Width 13.3, Neutrophils (%) (Auto) 80.4 H, Lymphocytes (%) (Auto) 9.5 L, Monocytes (%) (Auto) 7.9 H, Eosinophils (%) (Auto) 0.8, Basophils (%) (Auto) 0.8, Neutrophils # (Auto) 5.8, Lymphocytes # (Auto) 0.7 L, Monocytes # (Auto) 0.6, Eosinophils # (Auto) 0.1, Basophils # (Auto) 0.1 Microbiology Microbiology 11/26/18 Blood Culture, Received Pending 11/26/18 Blood Culture, Received Pending 11/26/18 Urine Culture, Received Pending Assessment/Plan 73f p/w intractable vomiting vomiting ct abd without acute pathology does have a distended bladder pt has been voiding frequently since receiving lasix in ed will check bladder scan continue prn anti emetics hypertension will attempt to continue po meds so far has not been able to keep any pills down prn labetalol to manage htn urgency dm continue nph and levemir monitor finger sticks sliding scale diabetic diet when eating hypoxia/chf hx of mild diastolic chf has been hypoxic in ed with elevated bnp and possible congestion on cxr will monitor response to lasix Plan / VTE VTE Prophylaxis Ordered?: Yes FALGUNI MATA MD Nov 26, 2018 19:15
[2018-11-26] MEDS ORDERED: GLUCOSE 4 GM CHEW TABLET PO PRN (19:30)
[2018-11-26] MEDS ORDERED: DEXTROSE 50% 50 ML SYRINGE IV PRN (19:30)
[2018-11-26] MEDS ORDERED: GLUCAGON FOR INJ 1 MG VIAL (J1610) SC PRN (19:30)
[2018-11-26] MEDS: HEPARIN SOD (PORCINE) 5000 UNITS/ML VIAL SQ SCH (20:53)
[2018-11-26] MEDS: **hydrALAZINE** 50 MG TAB PO SCH (20:54)
[2018-11-26] MEDS: CARVedilol 6.25 MG TAB PO SCH (20:54)
[2018-11-26] MEDS ORDERED: LEVEMIR (INSULIN DETEMIR) 1 UNITS/0.01ML SC SCH (21:00)
[2018-11-26 23:00] VITALS: BP 153/66
[2018-11-27 06:00] VITALS: BP 131/82
[2018-11-27 06:02] LABS: BASO % 0.5 % (0.0-1.0); EOS # 0.1 10^3/uL (0.0-0.50); EOS % 0.7 % (0.0-3.0); HEMATOCRIT 27.5 % (36.0-47.0); HEMOGLOBIN 8.9 g/dl (12.0-15.5); LYMPH % 14.1 % (24.0-44.0); MEAN CORPUSCULAR HEMOGLOBIN 31.1 pg (27.0-33.0); MEAN CORPUSCULAR HGB CONC 32.4 g/dl (32.0-36.5); MEAN CORPUSCULAR VOLUME 96.2 fl (80.0-96.0); NEUTROPHILS # 5.2 10^3/uL (1.8-7.7); NEUTROPHILS % 71.3 % (36.0-66.0); PLATELET COUNT, AUTOMATED 163 10^3/uL (150-450); RED BLOOD COUNT 2.86 10^6/uL (4.00-5.40); WHITE BLOOD COUNT 7.3 10^3/uL (4.0-10.0)
[2018-11-27 06:28] LABS: ALBUMIN 2.4 GM/DL (3.2-5.2); BILIRUBIN,TOTAL 0.2 MG/DL (0.2-1.0); CALCIUM LEVEL 8.3 MG/DL (8.8-10.2); CREATININE FOR GFR 1.58 MG/DL (0.55-1.30); GLOMERULAR FILTRATION RATE 34.3 (>39); POTASSIUM SERUM 3.6 MEQ/L (3.5-5.1); TOTAL PROTEIN 5.1 GM/DL (6.4-8.2)
[2018-11-27] MEDS: HumaLOG INSULIN (NovoLOG) PER UNIT SC SCH ×3 (07:30→17:52)
[2018-11-27] MEDS ORDERED: TORSEMIDE 20 MG TAB PO SCH (09:00)
[2018-11-27] MEDS: ONDANSETRON 4MG/2ML VIAL (J2405) IV PRN ×2 (09:19→22:04)
[2018-11-27] MEDS: FOLIC ACID 1 MG TAB PO SCH (09:21)
[2018-11-27] MEDS: FLUoxetine 20 MG CAP PO SCH (09:21)
[2018-11-27] MEDS: CALCITRIOL 0.25 MCG CAP (S0169) PO SCH (09:21)
[2018-11-27] MEDS: ASPIRIN 81 MG ENTERIC TAB PO SCH (09:21)
[2018-11-27] MEDS: CARVedilol 6.25 MG TAB PO SCH ×2 (09:22→22:03)
[2018-11-27] MEDS: **hydrALAZINE** 50 MG TAB PO SCH ×3 (09:23→22:03)
[2018-11-27] MEDS: HEPARIN SOD (PORCINE) 5000 UNITS/ML VIAL SQ SCH ×2 (09:23→22:04)
[2018-11-27] MEDS: HumuLIN N INSULIN (NovoLIN N) PER UNIT SC SCH (12:00)
[2018-11-27 17:50] VITALS: BP 156/65
--- NOTE | 2018-11-27 19:06 | IPNPDOC ---
Subjective Date Seen The patient was seen on 11/27/18. Subjective Chief Complaint/HPI 73f hx of dm and htn admitted with intractable vomiting much more alert today, no further vomiting. still has nausea and is reluctant to try solid food yet. no diarrhea since arrival at hospital a full ROS was performed and negative except as above Objective Physical Examination General Exam: Positive: Alert, Cooperative, No Acute Distress Eye Exam: Positive: PERRLA, Conjunctiva & lids normal, EOMI; Negative: Sclera icteric ENT Exam: Positive: Atraumatic, Mucous membr. moist/pink, Pharynx Normal Neck Exam: Positive: Supple; Negative: JVD, thyromegaly Chest Exam: Positive: Clear to auscultation, Normal air movement Heart Exam: Positive: Rate Normal, Regular Rhythm, Normal S1, Normal S2; Negative: Murmurs, Rubs Abdomen Exam: Positive: Normal bowel sounds, Soft; Negative: Tenderness, Hepatospenomegaly Extremity Exam: Positive: Edema, Normal pulses; Negative: Clubbing, Cyanosis Skin Exam: Positive: Nl turgor and temperature; Negative: Breakdown, Lesion Neuro Exam: Positive: Normal Gait, Normal Speech, Cranial Nerves 3-12 NL, Reflexes 2+ Psych Exam: Positive: Mental status NL, Anxiety, Memory Intact, Oriented x 3 Assessment /Plan Assessment 73f p/w intractable vomiting vomiting ct abd without acute pathology bladder scan nl continue prn anti emetics hypertension improved on po meds dm sugar low this am adjustments made continue nph and levemir monitor finger sticks sliding scale diabetic diet when eating hypoxia/chf hx of mild diastolic chf improved after one dose of lasix in ed Plan/VTE VTE Prophylaxis Ordered?: Yes VS, I&O, 24H, Fishbone Vital Signs/I&O Vital Signs Date Time Temp Pulse Resp B/P (MAP) Pulse Ox O2 Delivery O2 Flow Rate FiO2 11/27/18 17:52 156/65 11/27/18 17:50 89 11/27/18 06:00 97.6 14 95 11/26/18 22:51 Nasal Cannula 3.0 I&O- Last 24 Hours up to 6 AM 11/27/18 05:59 Intake Total 900 ml Balance 900 ml Laboratory Data 24H LABS Laboratory Tests 2 11/26/18 20:35: Bedside Glucose (Misc Panel) 184H 11/27/18 05:43: Immature Granulocyte % (Auto) 0.4, White Blood Count 7.3, Red Blood Count 2.86L, Hemoglobin 8.9L, Hematocrit 27.5L, Mean Corpuscular Volume 96.2H, Mean Corpuscular Hemoglobin 31.1, Mean Corpuscular Hemoglobin Concent 32.4, Red Cell Distribution Width 13.3, Platelet Count 163, Neutrophils (%) (Auto) 71.3H, Lymphocytes (%) (Auto) 14.1L, Monocytes (%) (Auto) 13.0H, Eosinophils (%) (Auto) 0.7, Basophils (%) (Auto) 0.5, Neutrophils # (Auto) 5.2, Lymphocytes # (Auto) 1.0L, Monocytes # (Auto) 1.0H, Eosinophils # (Auto) 0.1, Basophils # (Auto) 0.0, Nucleated Red Blood Cells % (auto) 0.0, Anion Gap 4L, Glomerular Filtration Rate 34.3L, Lactic Acid Level 0.6, Blood Urea Nitrogen 27H, Creatinine 1.58H, Sodium Level 143, Potassium Level 3.6#, Chloride Level 108H, Carbon Dioxide Level 31, Calcium Level 8.3L, Aspartate Amino Transf (AST/SGOT) 10, Alanine Aminotransferase (ALT/SGPT) 19, Alkaline Phosphatase 71, Total Bilirubin 0.2, Total Protein 5.1L, Albumin 2.4L, Albumin/Globulin Ratio 0.89L, Procalcitonin 0.20 11/27/18 06:56: Bedside Glucose (Misc Panel) 74L 11/27/18 11:57: Bedside Glucose (Misc Panel) 107 11/27/18 17:40: Bedside Glucose (Misc Panel) 112H CBC/BMP Laboratory Tests 11/27/18 05:43 Red Blood Count 2.86 L, Mean Corpuscular Volume 96.2 H, Mean Corpuscular Hemoglobin 31.1, Mean Corpuscular Hemoglobin Concent 32.4, Red Cell Distribution Width 13.3, Neutrophils (%) (Auto) 71.3 H, Lymphocytes (%) (Auto) 14.1 L, Monocytes (%) (Auto) 13.0 H, Eosinophils (%) (Auto) 0.7, Basophils (%) (Auto) 0.5, Neutrophils # (Auto) 5.2, Lymphocytes # (Auto) 1.0 L, Monocytes # (Auto) 1.0 H, Eosinophils # (Auto) 0.1, Basophils # (Auto) 0.0, Calcium Level 8.3 L, A spartate Amino Transf (AST/SGOT) 10, Alanine Aminotransferase (ALT/SGPT) 19, Alkaline Phosphatase 71, Total Bilirubin 0.2, Total Protein 5.1 L, Albumin 2.4 L Microbiology Microbiology 11/26/18 Blood Culture - Preliminary, Resulted No growth after 24 hours . All specim... 11/26/18 Blood Culture - Preliminary, Resulted No growth after 24 hours . All specim... 11/26/18 Urine Culture - Final, Complete FALGUNI MATA MD Nov 27, 2018 19:05
[2018-11-27] MEDS: LEVEMIR (INSULIN DETEMIR) 1 UNITS/0.01ML SC SCH (21:00)
[2018-11-27 22:00] VITALS: BP 149/58
[2018-11-27] MEDS: NYSTATIN 100,000 UNITS/GM TOPICAL PWD 15 GM TOP SCH (22:04)
[2018-11-28] MEDS: ONDANSETRON 4MG/2ML VIAL (J2405) IV PRN ×4 (00:47→21:06)
[2018-11-28] MEDS: METOCLOPRAMIDE INJ 10MG/2ML VIAL (J2765) IV PRN ×3 (03:09→23:09)
[2018-11-28 05:32] LABS: BASO % 0.3 % (0.0-1.0); HEMOGLOBIN 9.5 g/dl (12.0-15.5); LYMPH # 0.5 10^3/uL (1.5-4.5); LYMPH % 4.6 % (24.0-44.0); MEAN CORPUSCULAR HEMOGLOBIN 30.1 pg (27.0-33.0); MEAN CORPUSCULAR HGB CONC 31.7 g/dl (32.0-36.5); MEAN CORPUSCULAR VOLUME 94.9 fl (80.0-96.0); MONO # 0.3 10^3/uL (0.0-0.8); MONO % 3.3 % (0.0-5.0); NEUTROPHILS # 9.1 10^3/uL (1.8-7.7); NEUTROPHILS % 91.2 % (36.0-66.0); PLATELET COUNT, AUTOMATED 175 10^3/uL (150-450); RED BLOOD COUNT 3.16 10^6/uL (4.00-5.40)
[2018-11-28] MEDS ORDERED: PROCHLORPERAZINE 10 MG/2 ML VIAL (J0780) IV ONE (05:45)
[2018-11-28 05:59] LABS: CALCIUM LEVEL 8.6 MG/DL (8.8-10.2); CREATININE FOR GFR 2.18 MG/DL (0.55-1.30); GLOMERULAR FILTRATION RATE 23.7 (>39); POTASSIUM SERUM 3.7 MEQ/L (3.5-5.1)
[2018-11-28 06:00] VITALS: BP 200/86
[2018-11-28] MEDS: FLUoxetine 20 MG CAP PO SCH (08:25)
[2018-11-28] MEDS: HumaLOG INSULIN (NovoLOG) PER UNIT SC SCH ×3 (08:25→17:30)
[2018-11-28] MEDS: **hydrALAZINE** 50 MG TAB PO SCH ×3 (08:26→21:05)
[2018-11-28] MEDS: CALCITRIOL 0.25 MCG CAP (S0169) PO SCH (08:26)
[2018-11-28] MEDS: FOLIC ACID 1 MG TAB PO SCH (08:26)
[2018-11-28] MEDS: NYSTATIN 100,000 UNITS/GM TOPICAL PWD 15 GM TOP SCH ×2 (08:27→21:05)
[2018-11-28] MEDS: HEPARIN SOD (PORCINE) 5000 UNITS/ML VIAL SQ SCH ×2 (08:27→21:05)
[2018-11-28] MEDS: ASPIRIN 81 MG ENTERIC TAB PO SCH (08:27)
[2018-11-28] MEDS: CARVedilol 6.25 MG TAB PO SCH ×2 (08:27→21:05)
[2018-11-28] MEDS: HumuLIN N INSULIN (NovoLIN N) PER UNIT SC SCH (12:00)
[2018-11-28] MEDS: cefTRIAXone SOD 1 GM in D5W MINI-BAG PLUS 50 ML IV SCH (12:22)
[2018-11-28 14:00] VITALS: BP 198/100
--- NOTE | 2018-11-28 14:29 | IPNPDOC ---
Subjective Date Seen The patient was seen on 11/28/18. Subjective Chief Complaint/HPI 73f hx of dm and htn admitted with intractable vomiting vomiting and nauseous again. also complaining of suprapubic pain and now dysuria a full ROS was performed and negative except as above Objective Physical Examination General Exam: Positive: Alert, Cooperative, No Acute Distress Eye Exam: Positive: PERRLA, Conjunctiva & lids normal, EOMI; Negative: Sclera icteric ENT Exam: Positive: Atraumatic, Mucous membr. moist/pink, Pharynx Normal Neck Exam: Positive: Supple; Negative: JVD, thyromegaly Chest Exam: Positive: Clear to auscultation, Normal air movement Heart Exam: Positive: Rate Normal, Regular Rhythm, Normal S1, Normal S2; Negative: Murmurs, Rubs Abdomen Exam: Positive: Normal bowel sounds, Soft; Negative: Tenderness, Hepatospenomegaly Extremity Exam: Positive: Edema, Normal pulses; Negative: Clubbing, Cyanosis Skin Exam: Positive: Nl turgor and temperature; Negative: Breakdown, Lesion Neuro Exam: Positive: Normal Gait, Normal Speech, Cranial Nerves 3-12 NL, Reflexes 2+ Psych Exam: Positive: Mental status NL, Anxiety, Memory Intact, Oriented x 3 Assessment /Plan Assessment 73f p/w intractable vomiting vomiting continue prn anti emetics hypertension continue home meds dm continue nph and levemir monitor finger sticks sliding scale diabetic diet when eating hypoxia/chf hx of mild diastolic chf improved after one dose of lasix in ed dysuria mild pyuria on ua ucx contaminated given urinary symptoms, vomiting, leukocytosis I will start ceftriaxone Plan/VTE VTE Prophylaxis Ordered?: Yes VS, I&O, 24H, [facility] Vital Signs/I&O Vital Signs Date Time Temp Pulse Resp B/P (MAP) Pulse Ox O2 Delivery O2 Flow Rate FiO2 11/28/18 08:27 82 11/28/18 08:26 198/82 11/28/18 06:00 98.0 17 98 11/26/18 22:51 Nasal Cannula 3.0 I&O- Last 24 Hours up to 6 AM 11/28/18 06:00 Intake Total 810 ml Output Total 87 ml Balance 723 ml Laboratory Data 24H LABS Laboratory Tests 2 11/27/18 17:40: Bedside Glucose (Misc Panel) 112H 11/27/18 21:02: Bedside Glucose (Misc Panel) 85 11/28/18 03:17: Bedside Glucose (Misc Panel) 195H 11/28/18 05:12: Immature Granulocyte % (Auto) 0.6, White Blood Count 10.0, Red Blood Count 3.16L, Hemoglobin 9.5L, Hematocrit 30.0L, Mean Corpuscular Volume 94.9, Mean Corpuscular Hemoglobin 30.1, Mean Corpuscular Hemoglobin Concent 31.7L, Red Cell Distribution Width 13.5, Platelet Count 175, Neutrophils (%) (Auto) 91.2H, Lym phocytes (%) (Auto) 4.6L, Monocytes (%) (Auto) 3.3, Eosinophils (%) (Auto) 0.0, Basophils (%) (Auto) 0.3, Neutrophils # (Auto) 9.1H, Lymphocytes # (Auto) 0.5L, Monocytes # (Auto) 0.3, Eosinophils # (Auto) 0.0, Basophils # (Auto) 0.0, Nucleated Red Blood Cells % (auto) 0.0, Anion Gap 6L, Glomerular Filtration Rate 23.7L, Blood Urea Nitrogen 30H, Creatinine 2.18H, Sodium Level 140, Potassium Level 3.7, Chloride Level 106, Carbon Dioxide Level 28, Calcium Level 8.6L 11/28/18 12:04: Bedside Glucose (Misc Panel) 238H CBC/BMP Laboratory Tests 11/28/18 05:12 Red Blood Count 3.16 L, Mean Corpuscular Volume 94.9, Mean Corpuscular Hemoglobin 30.1, Mean Corpuscular Hemoglobin Concent 31.7 L, Red Cell Distribution Width 13.5, Neutrophils (%) (Auto) 91.2 H, Lymphocytes (%) (Auto) 4.6 L, Monocytes (%) (Auto) 3.3, Eosinophils (%) (Auto) 0.0, Basophils (%) (Auto) 0.3, Neutrophils # (Auto) 9.1 H, Lymphocytes # (Auto) 0.5 L, Monocytes # (Auto) 0.3, Eosinophils # (Auto) 0.0, Basophils # (Auto) 0.0, Calcium Level 8.6 L Microbiology Microbiology 11/26/18 Blood Culture - Preliminary, Resulted No Growth after 48 hours. All Specime... 11/26/18 Blood Culture - Preliminary, Resulted No Growth after 48 hours. All Specime... 11/26/18 Urine Culture - Final, Complete FALGUNI MATA MD Nov 28, 2018 14:29
[2018-11-28 16:10] VITALS: BP 180/90
[2018-11-28] MEDS ORDERED: FUROSEMIDE 40 MG/4 ML VIAL (J1940) IV ONE (17:30)
[2018-11-28 17:42] LABS: SODIUM,RANDOM URINE 22 MEQ/L
[2018-11-28 22:00] VITALS: BP 156/62
[2018-11-28] MEDS: LEVEMIR (INSULIN DETEMIR) 1 UNITS/0.01ML SC SCH (23:09)
[2018-11-29] MEDS: METOCLOPRAMIDE INJ 10MG/2ML VIAL (J2765) IV PRN ×2 (00:11→09:59)
[2018-11-29] MEDS: PANTOPRAZOLE 40MG INJ (PROTONIX) (C9113) IV SCH ×2 (02:58→13:34)
[2018-11-29] MEDS ORDERED: PROMETHAZINE INJ 25 MG/ML VIAL (J2550) IV ONE (05:00)
[2018-11-29 05:20] VITALS: BP 220/90
[2018-11-29 06:43] LABS: BASO % 0.1 % (0.0-1.0); HEMOGLOBIN 9.5 g/dl (12.0-15.5); LYMPH # 0.7 10^3/uL (1.5-4.5); LYMPH % 9.4 % (24.0-44.0); MEAN CORPUSCULAR HEMOGLOBIN 30.5 pg (27.0-33.0); MEAN CORPUSCULAR HGB CONC 31.7 g/dl (32.0-36.5); MEAN CORPUSCULAR VOLUME 96.5 fl (80.0-96.0); MONO # 0.6 10^3/uL (0.0-0.8); MONO % 7.6 % (0.0-5.0); NEUTROPHILS % 82.4 % (36.0-66.0); PLATELET COUNT, AUTOMATED 164 10^3/uL (150-450); RED BLOOD COUNT 3.11 10^6/uL (4.00-5.40); WHITE BLOOD COUNT 7.3 10^3/uL (4.0-10.0)
[2018-11-29 06:52] VITALS: BP 182/92
[2018-11-29] MEDS: SUCRALFATE 1 GM TAB PO SCH ×3 (06:52→17:15)
[2018-11-29 07:09] LABS: CALCIUM LEVEL 8.1 MG/DL (8.8-10.2); CREATININE FOR GFR 1.85 MG/DL (0.55-1.30); GLOMERULAR FILTRATION RATE 28.6 (>39); POTASSIUM SERUM 3.2 MEQ/L (3.5-5.1)
[2018-11-29] MEDS: **hydrALAZINE** 50 MG TAB PO SCH ×3 (07:19→22:10)
[2018-11-29] MEDS: CARVedilol 6.25 MG TAB PO SCH ×2 (07:20→22:10)
[2018-11-29] MEDS: FOLIC ACID 1 MG TAB PO SCH (08:47)
[2018-11-29] MEDS: FLUoxetine 20 MG CAP PO SCH (08:47)
[2018-11-29] MEDS: TORSEMIDE 20 MG TAB PO SCH (08:47)
[2018-11-29] MEDS: CALCITRIOL 0.25 MCG CAP (S0169) PO SCH (08:47)
[2018-11-29] MEDS: ASPIRIN 81 MG ENTERIC TAB PO SCH (08:47)
[2018-11-29] MEDS: NYSTATIN 100,000 UNITS/GM TOPICAL PWD 15 GM TOP SCH ×2 (08:47→22:11)
[2018-11-29] MEDS: HumaLOG INSULIN (NovoLOG) PER UNIT SC SCH ×4 (08:48→17:22)
[2018-11-29] MEDS: HEPARIN SOD (PORCINE) 5000 UNITS/ML VIAL SQ SCH ×2 (08:48→22:10)
[2018-11-29] MEDS: BISACODYL 10 MG SUPP PR SCH (08:48)
[2018-11-29] MEDS: ONDANSETRON 4MG/2ML VIAL (J2405) IV PRN ×3 (09:22→22:20)
[2018-11-29] MEDS: ACETAMINOPHEN TAB 650MG DOSE (2X325MG) PO PRN (10:22)
[2018-11-29] MEDS: HumuLIN N INSULIN (NovoLIN N) PER UNIT SC SCH (11:48)
[2018-11-29] MEDS: cefTRIAXone SOD 1 GM in D5W MINI-BAG PLUS 50 ML IV SCH (11:54)
--- NOTE | 2018-11-29 12:22 | IPNPDOC ---
Text Note Date of Service The patient was seen on 11/29/18. NOTE Subjective: Patient seen and examined at bedside. Still complains of nausea, no vomiting, dysuria and abdominal pain. Objective: General: NAD, sitting comfortably in chair HEENT: NC/AT, EOMI Lungs: CTA B/L Heart: +S1S2, RRR Abd: soft, suprapubic tenderness, +BS Ext: peripheral edema A/P: 73f hx of dm and htn admitted with intractable vomiting: #nausea continue prn anti emetics #UTI - continue IV Abx - repeat UCx, previous contaminated #hypertension - uncontrolled - added norvasc - consider additional lasix today - continue home meds #DARRYL/CKD - improving #dm continue nph and levemir monitor finger sticks sliding scale diabetic diet when eating #hypoxia/chf hx of mild diastolic chf improved after one dose of lasix in ed #DVT prophylaxis VS,Fishbone, I+O VS, Fishbone, I+O Laboratory Tests 11/29/18 05:58 Red Blood Count 3.11 L, Mean Corpuscular Volume 96.5 H, Mean Corpuscular Hemoglobin 30.5, Mean Corpuscular Hemoglobin Concent 31.7 L, Red Cell Distribution Width 13.5, Neutrophils (%) (Auto) 82.4 H, Lymphocytes (%) (Auto) 9.4 L, Monocytes (%) (Auto) 7.6 H, Eosinophils (%) (Auto) 0.0, Basophils (%) (Auto) 0.1, Neutrophils # (Auto) 6.0, Lymphocytes # (Auto) 0.7 L, Monocytes # (Auto) 0.6, Eosinophils # (Auto) 0.0, Basophils # (Auto) 0.0, Calcium Level 8.1 L Vital Signs Date Time Temp Pulse Resp B/P (MAP) Pulse Ox O2 Delivery O2 Flow Rate FiO2 11/29/18 07:20 81 11/29/18 07:19 182/92 11/29/18 05:20 97.0 21 92 2.0 11/26/18 22:51 Nasal Cannula I&O- Last 24 Hours up to 6 AM 11/29/18 06:00 Intake Total 1035 ml Output Total 1625 ml Balance -590 ml EARLINE BARRIENTOS MD Nov 29, 2018 12:22
[2018-11-29 12:35] LABS: MAGNESIUM LEVEL 2.2 MG/DL (1.8-2.4)
[2018-11-29] MEDS ORDERED: POTASSIUM CHLORIDE 10 MEQ SR TABLET PO ONE (13:00)
[2018-11-29 13:36] VITALS: BP 178/98
[2018-11-29] MEDS: amLODIPine 5 MG TAB PO SCH (13:36)
[2018-11-29 22:00] VITALS: BP 179/85
[2018-11-29] MEDS: LEVEMIR (INSULIN DETEMIR) 1 UNITS/0.01ML SC SCH (22:12)
[2018-11-30] MEDS: SUCRALFATE 1 GM TAB PO SCH ×5 (00:05→23:47)
[2018-11-30 02:30] VITALS: BP 179/83
[2018-11-30] MEDS: ACETAMINOPHEN TAB 650MG DOSE (2X325MG) PO PRN (02:43)
[2018-11-30] MEDS: PANTOPRAZOLE 40MG INJ (PROTONIX) (C9113) IV SCH ×2 (02:43→13:05)
[2018-11-30] MEDS: ONDANSETRON 4MG/2ML VIAL (J2405) IV PRN ×2 (02:43→08:06)
[2018-11-30 02:54] VITALS: BP 156/76
[2018-11-30] MEDS: HumaLOG INSULIN (NovoLOG) PER UNIT SC SCH ×3 (08:06→16:55)
[2018-11-30] MEDS: HEPARIN SOD (PORCINE) 5000 UNITS/ML VIAL SQ SCH ×2 (08:06→23:46)
[2018-11-30] MEDS: **hydrALAZINE** 50 MG TAB PO SCH ×3 (08:07→21:00)
[2018-11-30] MEDS: amLODIPine 5 MG TAB PO SCH (08:07)
[2018-11-30] MEDS: FOLIC ACID 1 MG TAB PO SCH (08:07)
[2018-11-30] MEDS: NYSTATIN 100,000 UNITS/GM TOPICAL PWD 15 GM TOP SCH ×2 (08:08→21:00)
[2018-11-30] MEDS: TORSEMIDE 20 MG TAB PO SCH (08:08)
[2018-11-30] MEDS: BISACODYL 10 MG SUPP PR SCH (08:08)
[2018-11-30] MEDS: CARVedilol 6.25 MG TAB PO SCH ×2 (08:08→21:00)
[2018-11-30] MEDS: FLUoxetine 20 MG CAP PO SCH (08:08)
[2018-11-30] MEDS: ASPIRIN 81 MG ENTERIC TAB PO SCH (08:08)
[2018-11-30] MEDS: CALCITRIOL 0.25 MCG CAP (S0169) PO SCH (08:08)
[2018-11-30] MEDS: MOM 30ML SUSPENSION UDC PO PRN (08:09)
[2018-11-30 08:21] LABS: HEMATOCRIT 29.3 % (36.0-47.0); HEMOGLOBIN 9.1 g/dl (12.0-15.5); MEAN CORPUSCULAR HEMOGLOBIN 29.4 pg (27.0-33.0); MEAN CORPUSCULAR HGB CONC 31.1 g/dl (32.0-36.5); MEAN CORPUSCULAR VOLUME 94.8 fl (80.0-96.0); PLATELET COUNT, AUTOMATED 178 10^3/uL (150-450); RED BLOOD COUNT 3.09 10^6/uL (4.00-5.40); WHITE BLOOD COUNT 7.2 10^3/uL (4.0-10.0)
[2018-11-30 08:39] LABS: CALCIUM LEVEL 8.1 MG/DL (8.8-10.2); CREATININE FOR GFR 1.87 MG/DL (0.55-1.30); GLOMERULAR FILTRATION RATE 28.3 (>39); POTASSIUM SERUM 3.4 MEQ/L (3.5-5.1)
--- NOTE | 2018-11-30 08:56 | IPNPDOC ---
Text Note Date of Service The patient was seen on 11/30/18. NOTE Subjective: Patient seen and examined at bedside. Still complains of nausea, dysuria and abdominal pain. No modifying factors for her nausea or abd pain. Essentially no change from yesterday. Objective: General: NAD, lying comfortably in bed HEENT: NC/AT, EOMI Lungs: CTA B/L Heart: +S1S2, RRR Abd: soft, suprapubic tenderness, +BS Ext: peripheral edema A/P: 73f hx of dm and htn admitted with intractable vomiting: #nausea continue prn anti emetics - GI c/s, possible upper endoscopy #UTI - continue IV Abx - repeat UCx, previous contaminated #hypertension - uncontrolled - added norvasc - continue home meds #DARRYL/CKD - improving - grossly at baseline #dm continue nph and levemir monitor finger sticks sliding scale diabetic diet when eating #hypoxia/chf hx of mild diastolic chf improved after one dose of lasix in ed #DVT prophylaxis VS,Fishbone, I+O VS, Fishbone, I+O Laboratory Tests 11/30/18 07:59 Red Blood Count 3.09 L, Mean Corpuscular Volume 94.8, Mean Corpuscular Hemoglobin 29.4, Mean Corpuscular Hemoglobin Concent 31.1 L, Red Cell Distribution Width 13.7, Calcium Level 8.1 L Vital Signs Date Time Temp Pulse Resp B/P (MAP) Pulse Ox O2 Delivery O2 Flow Rate FiO2 11/30/18 08:08 74 11/30/18 08:07 179/83 11/30/18 06:00 97.4 20 96 2.0 11/26/18 22:51 Nasal Cannula I&O- Last 24 Hours up to 6 AM 11/30/18 06:00 Intake Total 720 ml Output Total 200 ml Balance 520 ml EARLINE BARRIENTOS MD Nov 30, 2018 08:56
[2018-11-30] MEDS ORDERED: POTASSIUM CHLORIDE 10 MEQ SR TABLET PO ONE (09:00)
[2018-11-30] MEDS: HumuLIN N INSULIN (NovoLIN N) PER UNIT SC SCH (12:00)
--- NOTE | 2018-11-30 12:13 | CR.PDOC ---
General Date of Consultation: Nov 30, 2018 Referring Provider: EARLINE BARRIENTOS MD Attending Physician: TATO HERNANDEZ MD Consultation Primary physician/ hospitalist: Dr Barrientos Reason for consult: Persistent Nausea HPI: -- 73 year old female with DM type 2, HTN and depression who presented to the ED on 11/26/2018 with the complaint of nausea and lower abdomen discomfort. Patient was admitted for DARRYL and UTI. Patient was started on antibiotics for UTI, and her renal function improved but patient continued to have nausea. GI was Consulted for the same. Patient reports having nausea and lower abdominal pain - cramping, with bloating gassy sensation and few episodes of diarrhea 2 days ago, and c urrently her diarrhea resolved and no further bowel movements. Patient also reports having history of acid reflux and food getting stuck in chest sensation intermittently. Patient is able to have clear liquid diet without any problem. Patient admits to feeling full quickly after eating, food seems to make the abdominal discomfort a little worse, nothing seems to make it better and no vomiting any time. Review of Systems: GI: as stated above CVS: No palpitations,b/l lower extremity leg swelling which is not new for her RS: some resting and exertional SOB, No Wheezing, no cough SAP BASIS ADMINISTRATOR: No dizziness, No motor weakness, No sensory problems Hematology: No bruising, No gum bleeding, Musculoskeletal: No joint pain, ambulating well. Skin: No rash : No hematuria, No burning sensation of the urine ENT: No ear discharge/ pain, No dysphagia. Eyes: No photophobia. Jaundice Home medications: reviewed. Antithrombotic agents - none Medical h/o: As above. Surgical h/o: C- section and right ankle surgery Social h/o:No ETOH, smoking or drug use Family h/o of GI cancers - None Prior Endoscopies: Has never had an endoscopy nor colonoscopy Exam: Vitals: reviewed General: Alert and oriented x 3, not in distress HEENT: NO pallor, no icterus. Normal oropharynx, NO cervical lymph nodes. Chest: symmetric with bilateral clear air entry, CVS: S1, S2 heard, normal, no murmurs . Abdomen: obese, normal bowel sounds, non-distended, soft, mild tenderness in lower abdomen, no palpable masses, Extremities: bilateral +2 edema in lower extremities. SAP BASIS ADMINISTRATOR: no focal motor or sensory deficits. Moves all extremities Skin: no rash. Labs: reviewed and imaging reviewed Impression: -- Acute onset nausea and lower abdominal pain with abnormal UA and Acute kidney injury, being treated with antibiotics for likely UTI, now with persistent nausea, and prior episode of diarrhea ( could be related to Oral contrast from CT scan) -- DDx-- Likely related to UTI vs rule out GERD with esophagitis ( as patient also reports intermittent symptoms of dysphagia), vs PUD vs Acute gastroenteritis. Recommendations: -- Patient is educated about the prior test results and all questions answered. -- PPI -- pantoprazole 40 mg daily for now -- Avoid NSAIDs -- IV antibiotics for UTI and supportive care with IV hydration as needed. -- Oral diet as tolerated. -- If persistent symptoms, not improving with conservative measures, will consider EGD on Wednesday for further evaluation of dysphagia and persistent nausea. Patient is educated about the procedure, its indications, risks, be nefits and alteratives. Patient verbalized understanding and agreed with above plan. -- Recall GI if any acute change in status. Plan of care discussed with patient and communicated to primary team. Laboratory Data CBC/BMP Laboratory Tests 11/30/18 07:59 Red Blood Count 3.09 L, Mean Corpuscular Volume 94.8, Mean Corpuscular Hemoglobin 29.4, Mean Corpuscular Hemoglobin Concent 31.1 L, Red Cell Distribution Width 13.7, Calcium Level 8.1 L Allergies Coded Allergies: Latex, Natural Rubber (Verified Allergy, Unknown, Rash, 10/31/18) milk (Verified Allergy, Unknown, 10/31/18) Home Medications Scheduled Aspirin (Aspirin EC) 81 Mg Tab, 81 MG PO DAILY, (Reported) Calcitriol (Calcitriol) 0.25 Mcg Capsule, 0.25 MCG PO 5XW, (Reported) MON, , WED, , FRI Carvedilol (Carvedilol) 6.25 Mg Tab, 6.25 MG PO BID, (Reported) Cyanocobalamin (Vitamin B-12) (Vitamin B-12) 1,000 Mcg Tablet, 1,000 MCG PO DAILY, (Reported) Ferrous Sulfate (Ferrous Sulfate) 325 Mg Tab, 325 MG PO BID, (Reported) Fluoxetine Hcl (Fluoxetine HCl) 20 Mg Capsule, 20 MG PO DAILY, (Reported) Folic Acid (Folic Acid) 1 Mg Tab, 1 MG PO DAILY, (Reported) Insulin Detemir (Levemir Flextouch) 100 Unit/1 Ml Insuln.pen, 15 UNIT SC QHS, (Reported) Insulin NPH Human Isophane (Humulin N Kwikpen) 100 Unit/1 Ml Insuln.pen, 10 UNITS SC DAILY, (Reported) AT NOON Torsemide (Torsemide) 10 Mg Tablet, 40 MG PO DAILY, (Reported) hydrALAZINE HCL (Hydralazine HCl) 100 Mg Tablet, 100 MG PO TID, (Reported) Scheduled PRN Acetaminophen (Acetaminophen) 325 Mg Tab, 650 MG PO Q6H PRN for PAIN, (Reported) Loperamide HCl (Imodium A-D) 2 Mg Tablet, 2 MG PO PRN PRN for DIARRHEA, (Reported) Magnesium Hydroxide (Milk of Magnesia) 1 Angela Angela, 30 ML PO DAILY PRN for CONSTIPATION, (Reported) Magnesium, Aluminum Hydroxide (Mag-Al Liquid) 1 Liq Liq, 30 ML PO DAILY PRN for CONSTIPATION, (Reported) Melatonin (Melatonin) 5 Mg Tab, 5 MG PO QHS PRN for INSOMNIA, (Reported) Ondansetron HCl (Zofran) 4 Mg Tablet, 4 MG PO Q6H PRN for NAUSEA, (Reported) Polyethylene Glycol 3350 (Miralax) 119 Gm Powder, 17 GM PO DAILY PRN for CONSTIPATION, (Reported) Polyvinyl Alcohol (Artificial Tears) 15 Ml Drops, 1 DROP OU PRN PRN for DRY EYES, (Reported) GME ATTESTATION GME ATTESTATION My faculty preceptor for this patient encounter was physically present during the encounter and was fully available. All aspects of the patient interview, examination, medical decision making process, and medical care plan development were reviewed and approved by the faculty preceptor. The faculty preceptor is aware and concurs with the plan as stated in the body of this note and will attest to such by his/her cosignature. HARI GROSSMAN DO Nov 30, 2018 12:13 TATO HERNANDEZ MD Dec 01, 2018 17:13
[2018-11-30] MEDS: cefTRIAXone SOD 1 GM in D5W MINI-BAG PLUS 50 ML IV SCH (13:07)
[2018-11-30 14:00] VITALS: BP 162/78
[2018-11-30] MEDS: LEVEMIR (INSULIN DETEMIR) 1 UNITS/0.01ML SC SCH (21:00)
[2018-11-30 22:00] VITALS: BP 191/79
[2018-11-30] MEDS ORDERED: LEVEMIR (INSULIN DETEMIR) 1 UNITS/0.01ML SC ONE (23:30)
[2018-11-30 23:33] VITALS: BP 175/74
[2018-11-30] MEDS: METOCLOPRAMIDE INJ 10MG/2ML VIAL (J2765) IV PRN (23:45)
[2018-12-01] MEDS: PANTOPRAZOLE 40MG INJ (PROTONIX) (C9113) IV SCH ×3 (01:31→23:22)
[2018-12-01] MEDS: SUCRALFATE 1 GM TAB PO SCH (05:26)
[2018-12-01 06:00] VITALS: BP 176/76
[2018-12-01] MEDS: SUCRALFATE SUSP 1GM/10ML UD PO SCH ×4 (06:14→23:21)
[2018-12-01] MEDS: HumaLOG INSULIN (NovoLOG) PER UNIT SC SCH ×3 (07:30→17:56)
[2018-12-01 08:11] LABS: HEMATOCRIT 30.3 % (36.0-47.0); HEMOGLOBIN 9.6 g/dl (12.0-15.5); MEAN CORPUSCULAR HEMOGLOBIN 29.8 pg (27.0-33.0); MEAN CORPUSCULAR HGB CONC 31.7 g/dl (32.0-36.5); MEAN CORPUSCULAR VOLUME 94.1 fl (80.0-96.0); PLATELET COUNT, AUTOMATED 161 10^3/uL (150-450); RED BLOOD COUNT 3.22 10^6/uL (4.00-5.40); WHITE BLOOD COUNT 5.5 10^3/uL (4.0-10.0)
[2018-12-01 08:39] LABS: CALCIUM LEVEL 8.2 MG/DL (8.8-10.2); CREATININE FOR GFR 1.52 MG/DL (0.55-1.30); GLOMERULAR FILTRATION RATE 35.9 (>39); POTASSIUM SERUM 3.4 MEQ/L (3.5-5.1)
[2018-12-01] MEDS: TORSEMIDE 20 MG TAB PO SCH (09:00)
[2018-12-01] MEDS: FLUoxetine 20 MG CAP PO SCH (09:00)
[2018-12-01] MEDS: CALCITRIOL 0.25 MCG CAP (S0169) PO SCH (09:00)
[2018-12-01] MEDS: **hydrALAZINE** 50 MG TAB PO SCH ×3 (09:00→23:23)
[2018-12-01] MEDS: CARVedilol 6.25 MG TAB PO SCH ×2 (09:00→23:24)
[2018-12-01] MEDS: amLODIPine 5 MG TAB PO SCH (09:00)
[2018-12-01] MEDS: ASPIRIN 81 MG ENTERIC TAB PO SCH (09:00)
[2018-12-01] MEDS: FOLIC ACID 1 MG TAB PO SCH (09:00)
[2018-12-01] MEDS: NYSTATIN 100,000 UNITS/GM TOPICAL PWD 15 GM TOP SCH ×2 (09:36→21:00)
[2018-12-01] MEDS: METOCLOPRAMIDE INJ 10MG/2ML VIAL (J2765) IV PRN ×2 (09:36→17:55)
[2018-12-01] MEDS: HEPARIN SOD (PORCINE) 5000 UNITS/ML VIAL SQ SCH ×2 (09:41→23:22)
[2018-12-01] MEDS: BISACODYL 10 MG SUPP PR SCH (09:41)
[2018-12-01] MEDS: ONDANSETRON 4MG/2ML VIAL (J2405) IV PRN ×3 (10:33→23:22)
--- NOTE | 2018-12-01 11:30 | IPNPDOC ---
Text Note Date of Service The patient was seen on 12/01/18. NOTE Subjective: Patient seen and examined at bedside. Grumpy this morning. Essentially no change from yesterday. Refusing her medications this morning with no clear reasons. Objective: General: NAD, lying comfortably in bed HEENT: NC/AT, EOMI Lungs: CTA B/L Heart: +S1S2, RRR Abd: soft, suprapubic tenderness, +BS Ext: peripheral edema A/P: 73f hx of dm and htn admitted with intractable vomiting: #nausea - continue prn anti emetics - GI c/s appreciated - plan for upper endoscopy #UTI - continue IV Abx - repeat UCx still pending, previous contaminated #hypertension - uncontrolled - added norvasc - continue home meds #DARRYL/CKD - resolved #dm continue nph and levemir monitor finger sticks sliding scale diabetic diet when eating #hypoxia/chf hx of mild diastolic chf improved after one dose of lasix in ed #DVT prophylaxis Dispo: plan for EGD as per GI VS,Barrington, I+O VS, Bar[place], I+O Laboratory Tests 12/01/18 07:42 Red Blood Count 3.22 L, Mean Corpuscular Volume 94.1, Mean Corpuscular Hemoglobin 29.8, Mean Corpuscular Hemoglobin Concent 31.7 L, Red Cell Distribution Width 13.3, Calcium Level 8.2 L Vital Signs Date Time Temp Pulse Resp B/P (MAP) Pulse Ox O2 Delivery O2 Flow Rate FiO2 12/01/18 06:00 98.4 80 21 176/76 (109) 98 2.0 11/26/18 22:51 Nasal Cannula I&O- Last 24 Hours up to 6 AM 12/01/18 06:00 Intake Total 910 ml Output Total 1400 ml Balance -490 ml EARLINE BARRIENTOS MD Dec 01, 2018 11:30
[2018-12-01] MEDS: HumuLIN N INSULIN (NovoLIN N) PER UNIT SC SCH (12:00)
[2018-12-01] MEDS: cefTRIAXone SOD 1 GM in D5W MINI-BAG PLUS 50 ML IV SCH (12:38)
[2018-12-01 14:00] VITALS: BP 168/73
[2018-12-01 22:00] VITALS: BP 151/76
[2018-12-01] MEDS: LEVEMIR (INSULIN DETEMIR) 1 UNITS/0.01ML SC SCH (23:24)
[2018-12-02 06:00] VITALS: BP 142/74
[2018-12-02] MEDS: SUCRALFATE SUSP 1GM/10ML UD PO SCH ×4 (06:13→23:54)
[2018-12-02] MEDS: METOCLOPRAMIDE INJ 10MG/2ML VIAL (J2765) IV PRN (06:13)
[2018-12-02 06:23] LABS: HEMATOCRIT 29.9 % (36.0-47.0); HEMOGLOBIN 9.5 g/dl (12.0-15.5); MEAN CORPUSCULAR HEMOGLOBIN 30.7 pg (27.0-33.0); MEAN CORPUSCULAR HGB CONC 31.8 g/dl (32.0-36.5); MEAN CORPUSCULAR VOLUME 96.8 fl (80.0-96.0); PLATELET COUNT, AUTOMATED 162 10^3/uL (150-450); RED BLOOD COUNT 3.09 10^6/uL (4.00-5.40); WHITE BLOOD COUNT 6.2 10^3/uL (4.0-10.0)
[2018-12-02 06:48] LABS: CALCIUM LEVEL 8.4 MG/DL (8.8-10.2); CREATININE FOR GFR 1.89 MG/DL (0.55-1.30); GLOMERULAR FILTRATION RATE 27.9 (>39); POTASSIUM SERUM 3.4 MEQ/L (3.5-5.1)
[2018-12-02] MEDS: HumaLOG INSULIN (NovoLOG) PER UNIT SC SCH ×3 (07:30→17:30)
[2018-12-02] MEDS: BISACODYL 10 MG SUPP PR SCH (09:00)
[2018-12-02] MEDS: TORSEMIDE 20 MG TAB PO SCH (09:00)
[2018-12-02] MEDS: HEPARIN SOD (PORCINE) 5000 UNITS/ML VIAL SQ SCH ×2 (10:37→21:43)
[2018-12-02] MEDS: FLUoxetine 20 MG CAP PO SCH (10:38)
[2018-12-02] MEDS: FOLIC ACID 1 MG TAB PO SCH (10:38)
[2018-12-02] MEDS: ASPIRIN 81 MG ENTERIC TAB PO SCH (10:38)
[2018-12-02] MEDS: CALCITRIOL 0.25 MCG CAP (S0169) PO SCH (10:39)
[2018-12-02] MEDS: amLODIPine 5 MG TAB PO SCH (10:44)
[2018-12-02] MEDS: **hydrALAZINE** 50 MG TAB PO SCH ×3 (10:44→21:43)
[2018-12-02] MEDS: CARVedilol 6.25 MG TAB PO SCH ×2 (10:45→21:44)
[2018-12-02] MEDS: NYSTATIN 100,000 UNITS/GM TOPICAL PWD 15 GM TOP SCH ×2 (10:45→21:43)
--- NOTE | 2018-12-02 11:33 | IPNPDOC ---
Text Note Date of Service The patient was seen on 12/02/18. NOTE Subjective: Patient seen and examined at bedside. Anxious to proceed with EGD. Objective: General: NAD, lying comfortably in bed HEENT: NC/AT, EOMI Lungs: CTA B/L Heart: +S1S2, RRR Abd: soft, NT, +BS Ext: peripheral edema A/P: 73f hx of dm and htn admitted with intractable vomiting: #nausea - continue prn anti emetics - GI c/s appreciated - plan for upper endoscopy today #UTI - continue IV Abx - repeat UCx still pending, previous contaminated #hypertension - uncontrolled - added norvasc - continue home meds #DARRYL/CKD - resolved #dm continue nph and levemir monitor finger sticks sliding scale diabetic diet when eating #hypoxia/chf hx of mild diastolic chf improved after one dose of lasix in ed #DVT prophylaxis Dispo: plan for EGD today as per GI VS,Fishbone, I+O VS, Fishbone, I+O Laboratory Tests 12/02/18 05:32 Red Blood Count 3.09 L, Mean Corpuscular Volume 96.8 H, Mean Corpuscular Hemoglobin 30.7, Mean Corpuscular Hemoglobin Concent 31.8 L, Red Cell Distribution Width 13.5, Calcium Level 8.4 L Vital Signs Date Time Temp Pulse Resp B/P (MAP) Pulse Ox O2 Delivery O2 Flow Rate FiO2 12/02/18 10:44 80 160/88 12/02/18 06:00 97.9 19 96 2.0 11/26/18 22:51 Nasal Cannula I&O- Last 24 Hours up to 6 AM 12/02/18 06:00 Intake Total 600 ml Output Total 2700 ml Balance -2100 ml EARLINE BARRIENTOS MD Dec 02, 2018 11:33
[2018-12-02] MEDS: HumuLIN N INSULIN (NovoLIN N) PER UNIT SC SCH (12:00)
[2018-12-02] MEDS ORDERED: SIMETHICONE 40MG/0.6ML DROPS 30ML As Ordered ONE (13:16)
[2018-12-02] MEDS: PANTOPRAZOLE 40MG INJ (PROTONIX) (C9113) IV SCH (13:48)
[2018-12-02 14:00] VITALS: BP 148/60
[2018-12-02] MEDS ORDERED: LIDOCAINE 2% INJ 100 MG/5 ML SDV (FOR ANES.) As Ordered ONE (15:21)
[2018-12-02] MEDS ORDERED: PROPOFOL 200 MG/20 ML VIAL As Ordered ONE (15:21)
[2018-12-02] MEDS ORDERED: fentaNYL 100 MCG/2 ML INJECTION (J3010) As Ordered ONE (15:22)
--- NOTE | 2018-12-02 16:21 | ROOR ---
Patient Name: Derrick Rodriguez Procedure Date: 12/02/2018 3:50 PM Date of : 1945 Age: 73 Room: [facility] Gender: Female Note Status: Shirt Turner Override Procedure: Upper GI endoscopy Indications: Dysphagia Providers: Domenic Sandhu MD Referring MD: LOI ROSE MD Requesting Provider: Pramod Crowley MD Medicines: Monitored Anesthesia Care Complications: No immediate complications. Procedure: Pre-Anesthesia Assessment: - Prior to the procedure, a History and Physical was performed, and patient medications and allergies were reviewed. The patient is competent. The risks and benefits of the procedure and the sedation options and risks were discussed with the patient. All questions were answered and informed consent was obtained. Patient identification and proposed procedure were verified by the physician, the nurse and the anesthesiologist in the procedure room. Mental Status Examination: alert and oriented. Airway Examination: normal oropharyngeal airway and neck mobility. Respiratory Examination: clear to auscultation. CV Examination: normal. Prophylactic Antibiotics: The patient does not require prophylactic antibiotics. Prior Anticoagulants: The patient has taken no previous anticoagulant or antiplatelet agents. ASA Grade Assessment: III - A patient with severe systemic disease. After reviewing the risks and benefits, the patient was deemed in satisfactory condition to undergo the procedure. The anesthesia plan was to use monitored anesthesia care (MAC). Immediately prior to administration of medications, the patient was re-assessed for adequacy to receive sedatives. The heart rate, respiratory rate, oxygen saturations, blood pressure, adequacy of pulmonary ventilation, and response to care were monitored throughout the procedure. The physical status of the patient was re-assessed after the procedure. The Endoscope was introduced through the mouth, and advanced to the second part of duodenum. The upper GI endoscopy was accomplished without difficulty. The patient tolerated the procedure well. Findings: The examined esophagus was normal. The Z-line was regular and was found 40 cm from the incisors. Diffuse mild inflammation characterized by erythema and granularity was found in the gastric antrum. Biopsies were taken with a cold forceps for Helicobacter pylori testing. Verification of patient identification for the specimen was done by the physician and nurse using the patient's name, date and medical record number. Estimated blood loss was minimal. The duodenal bulb and second portion of the duodenum were normal. Impression: - Normal esophagus. - Z-line regular, 40 cm from the incisors. - Gastritis. Biopsied. - Normal duodenal bulb and second portion of the duodenum. Recommendation: - Patient has a contact number available for emergencies. The signs and symptoms of potential delayed complications were discussed with the patient. Return to normal activities tomorrow. Written discharge instructions were provided to the patient. - Advance diet as tolerated. - Continue present medications. 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 - Await pathology results. - Perform a colonoscopy in 3 months. - Return to GI clinic in [facility] (address [address], [address], [place], [facility]) in 4 -- 6 weeks. Please call GI clinic @ [phone] for apppointment date and time. - Return to primary care physician. Domenic Sandhu MD Domenic Sandhu MD 12/02/2018 4:21:16 PM Electronically signed by Domenic Sandhu MD Number of Addenda: 0 Note Initiated On: 12/02/2018 3:50 PM Estimated Blood Loss: Estimated blood loss was minimal.
[2018-12-02 22:00] VITALS: BP 161/70
[2018-12-02] MEDS: LEVEMIR (INSULIN DETEMIR) 1 UNITS/0.01ML SC SCH (22:58)
[2018-12-02] MEDS: ONDANSETRON 4MG/2ML VIAL (J2405) IV PRN (22:59)
[2018-12-03] MEDS: PANTOPRAZOLE 40MG INJ (PROTONIX) (C9113) IV SCH ×2 (02:21→13:22)
[2018-12-03] MEDS: SUCRALFATE SUSP 1GM/10ML UD PO SCH ×3 (05:53→18:17)
[2018-12-03 06:00] VITALS: BP 168/62
[2018-12-03 06:46] LABS: HEMATOCRIT 31.2 % (36.0-47.0); HEMOGLOBIN 9.7 g/dl (12.0-15.5); MEAN CORPUSCULAR HEMOGLOBIN 30.4 pg (27.0-33.0); MEAN CORPUSCULAR HGB CONC 31.1 g/dl (32.0-36.5); MEAN CORPUSCULAR VOLUME 97.8 fl (80.0-96.0); PLATELET COUNT, AUTOMATED 154 10^3/uL (150-450); RED BLOOD COUNT 3.19 10^6/uL (4.00-5.40); WHITE BLOOD COUNT 5.9 10^3/uL (4.0-10.0)
[2018-12-03 07:03] LABS: CREATININE FOR GFR 1.7 MG/DL (0.55-1.30); GLOMERULAR FILTRATION RATE 31.5 (>39); POTASSIUM SERUM 3.3 MEQ/L (3.5-5.1)
[2018-12-03] MEDS: HumaLOG INSULIN (NovoLOG) PER UNIT SC SCH ×3 (07:30→18:18)
[2018-12-03] MEDS: **hydrALAZINE** 50 MG TAB PO SCH ×3 (09:50→21:50)
[2018-12-03] MEDS: amLODIPine 5 MG TAB PO SCH (09:51)
[2018-12-03] MEDS: FOLIC ACID 1 MG TAB PO SCH (09:51)
[2018-12-03] MEDS: FLUoxetine 20 MG CAP PO SCH (09:51)
[2018-12-03] MEDS: ASPIRIN 81 MG ENTERIC TAB PO SCH (09:51)
[2018-12-03] MEDS: BISACODYL 10 MG SUPP PR SCH (09:51)
[2018-12-03] MEDS: CARVedilol 6.25 MG TAB PO SCH ×2 (09:51→21:50)
[2018-12-03] MEDS: CALCITRIOL 0.25 MCG CAP (S0169) PO SCH (09:51)
[2018-12-03] MEDS: HEPARIN SOD (PORCINE) 5000 UNITS/ML VIAL SQ SCH ×2 (09:52→21:48)
[2018-12-03] MEDS: NYSTATIN 100,000 UNITS/GM TOPICAL PWD 15 GM TOP SCH ×2 (09:52→21:51)
[2018-12-03] MEDS: TORSEMIDE 20 MG TAB PO SCH (09:52)
[2018-12-03 09:53] LABS: MAGNESIUM LEVEL 2.5 MG/DL (1.8-2.4)
[2018-12-03] MEDS ORDERED: POTASSIUM CHLORIDE 10 MEQ SR TABLET PO ONE (10:00)
[2018-12-03] MEDS: HumuLIN N INSULIN (NovoLIN N) PER UNIT SC SCH (13:24)
[2018-12-03 14:00] VITALS: BP 124/40
--- NOTE | 2018-12-03 14:11 | IPNPDOC ---
Text Note Date of Service The patient was seen on 12/03/18. NOTE Subjective: Patient seen and examined at bedside. No findings on EGD. Objective: General: NAD, lying comfortably in bed HEENT: NC/AT, EOMI Lungs: CTA B/L Heart: +S1S2, RRR Abd: soft, NT, +BS A/P: 73f hx of dm and htn admitted with intractable vomiting: #nausea - continue prn anti emetics - GI c/s appreciated #UTI - off Abx - repeat UA unrevealing #hypertension - still uncontrolled - added norvasc - continue home meds #DARRYL/CKD - resolved #dm continue nph and levemir monitor finger sticks sliding scale diabetic diet when eating #hypoxia/chf hx of mild diastolic chf improved after one dose of lasix in ed #DVT prophylaxis Dispo: to follow clinically VS,Barrington, I+O VS, [place], I+O Laboratory Tests 12/03/18 05:40 Red Blood Count 3.19 L, Mean Corpuscular Volume 97.8 H, Mean Corpuscular Hemoglobin 30.4, Mean Corpuscular Hemoglobin Concent 31.1 L, Red Cell Distribution Width 13.5, Calcium Level 8.0 L Vital Signs Date Time Temp Pulse Resp B/P (MAP) Pulse Ox O2 Delivery O2 Flow Rate FiO2 12/03/18 09:51 74 12/03/18 09:50 200/82 12/03/18 06:00 94 2.0 12/03/18 06:00 97.3 19 I&O- Last 24 Hours up to 6 AM 12/03/18 06:00 Intake Total 0 ml Output Total 300 ml Balance -300 ml EARLINE BARRIENTOS MD Dec 03, 2018 14:11
[2018-12-03 14:38] VITALS: BP 144/64
--- NOTE | 2018-12-03 19:00 | REP ---
REASON: Dyspnea. COMPARISON: Multiple, latest 11/26/2018. The technique utilized in obtaining the radiograph has magnified the cardiac silhouette and accentuated the interstitial markings. AP and lateral views were obtained. There is global cardiomegaly accentuated by technique. There is no significant change in the appearance of the lung ayala. The interstitial markings are again seen to be increased status quo. This is with bibasilar predominance. No acute patchy parenchymal opacities or pleural effusions have developed. IMPRESSION: No significant change. Electronically Signed by Arvind Milligan DO 12/04/2018 10:01 A
[2018-12-03] MEDS: LEVEMIR (INSULIN DETEMIR) 1 UNITS/0.01ML SC SCH (21:49)
[2018-12-03 22:00] VITALS: BP 167/72
[2018-12-04] MEDS: SUCRALFATE SUSP 1GM/10ML UD PO SCH ×4 (00:25→17:41)
[2018-12-04] MEDS: PANTOPRAZOLE 40MG INJ (PROTONIX) (C9113) IV SCH ×2 (02:24→13:23)
[2018-12-04 06:00] VITALS: BP 167/74
[2018-12-04 06:09] LABS: HEMATOCRIT 30.6 % (36.0-47.0); HEMOGLOBIN 9.4 g/dl (12.0-15.5); MEAN CORPUSCULAR HEMOGLOBIN 30.1 pg (27.0-33.0); MEAN CORPUSCULAR HGB CONC 30.7 g/dl (32.0-36.5); MEAN CORPUSCULAR VOLUME 98.1 fl (80.0-96.0); PLATELET COUNT, AUTOMATED 136 10^3/uL (150-450); RED BLOOD COUNT 3.12 10^6/uL (4.00-5.40); WHITE BLOOD COUNT 5.2 10^3/uL (4.0-10.0)
[2018-12-04 06:26] LABS: CALCIUM LEVEL 7.8 MG/DL (8.8-10.2); CREATININE FOR GFR 1.7 MG/DL (0.55-1.30); GLOMERULAR FILTRATION RATE 31.5 (>39); POTASSIUM SERUM 3.4 MEQ/L (3.5-5.1)
[2018-12-04] MEDS: HumaLOG INSULIN (NovoLOG) PER UNIT SC SCH ×3 (07:30→17:41)
--- NOTE | 2018-12-04 10:10 | IPNPDOC ---
Text Note Date of Service The patient was seen on 12/04/18. NOTE Subjective: Patient seen and examined at bedside. States she feels marginally better today. Her pain has improved. Feels her abdomen is somewhat distended. Objective: General: NAD, lying comfortably in bed HEENT: NC/AT, EOMI Lungs: CTA B/L Heart: +S1S2, RRR Abd: soft, NT, +BS, obese Ext: trace edema A/P: 73f hx of dm and htn admitted with intractable vomiting: #nausea - continue prn anti emetics - GI c/s appreciated #UTI - off Abx - repeat UA unrevealing #hypertension - still uncontrolled - added norvasc - continue home meds #DARRYL/CKD - resolved #dm continue nph and levemir monitor finger sticks sliding scale diabetic diet when eating #hypoxia/chf #chronic HFpEF - continue diuretic therapy - added lasix 40 IV x1 today #DVT prophylaxis Dispo: to follow clinically VS,Fishbone, I+O VS, Fishbone, I+O Laboratory Tests 12/04/18 05:35 Red Blood Count 3.12 L, Mean Corpuscular Volume 98.1 H, Mean Corpuscular Hemog lobin 30.1, Mean Corpuscular Hemoglobin Concent 30.7 L, Red Cell Distribution Width 13.7, Calcium Level 7.8 L Vital Signs Date Time Temp Pulse Resp B/P (MAP) Pulse Ox O2 Delivery O2 Flow Rate FiO2 12/04/18 06:00 96.9 59 17 167/74 (105) 95 2.0 I&O- Last 24 Hours up to 6 AM 12/04/18 06:00 Intake Total 720 ml Output Total 300 ml Balance 420 ml EARLINE BARRIENTOS MD Dec 04, 2018 10:10
[2018-12-04] MEDS: FOLIC ACID 1 MG TAB PO SCH (10:46)
[2018-12-04] MEDS: HEPARIN SOD (PORCINE) 5000 UNITS/ML VIAL SQ SCH ×2 (10:46→22:46)
[2018-12-04] MEDS: CALCITRIOL 0.25 MCG CAP (S0169) PO SCH (10:46)
[2018-12-04] MEDS: CARVedilol 6.25 MG TAB PO SCH ×2 (10:48→22:45)
[2018-12-04] MEDS: ASPIRIN 81 MG ENTERIC TAB PO SCH (10:48)
[2018-12-04] MEDS: amLODIPine 5 MG TAB PO SCH (10:48)
[2018-12-04] MEDS: FLUoxetine 20 MG CAP PO SCH (10:49)
[2018-12-04] MEDS: NYSTATIN 100,000 UNITS/GM TOPICAL PWD 15 GM TOP SCH ×2 (10:49→22:46)
[2018-12-04] MEDS: **hydrALAZINE** 50 MG TAB PO SCH ×3 (10:49→22:45)
[2018-12-04] MEDS: BISACODYL 10 MG SUPP PR SCH (10:49)
[2018-12-04] MEDS: TORSEMIDE 20 MG TAB PO SCH (10:51)
[2018-12-04] MEDS ORDERED: FUROSEMIDE 40 MG/4 ML VIAL (J1940) IV ONE (11:00)
[2018-12-04] MEDS: HumuLIN N INSULIN (NovoLIN N) PER UNIT SC SCH (13:24)
[2018-12-04 14:00] VITALS: BP 124/70
[2018-12-04] MEDS ORDERED: FUROSEMIDE 20 MG/2 ML VIAL (J1940) IV ONE (18:30)
[2018-12-04 22:00] VITALS: BP 168/70
[2018-12-04] MEDS: LEVEMIR (INSULIN DETEMIR) 1 UNITS/0.01ML SC SCH (22:45)
[2018-12-05] MEDS: SUCRALFATE SUSP 1GM/10ML UD PO SCH ×4 (00:16→18:02)
[2018-12-05] MEDS: PANTOPRAZOLE 40MG INJ (PROTONIX) (C9113) IV SCH ×2 (02:28→13:01)
[2018-12-05 06:00] VITALS: BP 123/58
[2018-12-05 06:13] LABS: HEMATOCRIT 30.6 % (36.0-47.0); HEMOGLOBIN 9.5 g/dl (12.0-15.5); MEAN CORPUSCULAR HEMOGLOBIN 30.3 pg (27.0-33.0); MEAN CORPUSCULAR VOLUME 97.5 fl (80.0-96.0); PLATELET COUNT, AUTOMATED 144 10^3/uL (150-450); RED BLOOD COUNT 3.14 10^6/uL (4.00-5.40); WHITE BLOOD COUNT 6.6 10^3/uL (4.0-10.0)
[2018-12-05 06:41] LABS: CALCIUM LEVEL 8.2 MG/DL (8.8-10.2); CREATININE FOR GFR 1.62 MG/DL (0.55-1.30); GLOMERULAR FILTRATION RATE 33.3 (>39); POTASSIUM SERUM 3.3 MEQ/L (3.5-5.1)
[2018-12-05] MEDS ORDERED: POTASSIUM CHLORIDE 10 MEQ SR TABLET PO ONE (07:15)
[2018-12-05] MEDS ORDERED: FUROSEMIDE 20 MG/2 ML VIAL (J1940) IV ONE (07:15)
[2018-12-05] MEDS: HumaLOG INSULIN (NovoLOG) PER UNIT SC SCH ×3 (07:30→18:02)
[2018-12-05 08:18] LABS: MAGNESIUM LEVEL 2.1 MG/DL (1.8-2.4)
--- NOTE | 2018-12-05 08:51 | IPNPDOC ---
Text Note Date of Service The patient was seen on 12/05/18. NOTE Subjective: Patient seen and examined at bedside. States she feels much better today. Objective: General: NAD, sitting comfortably at edge of bed HEENT: NC/AT, EOMI Lungs: CTA B/L Heart: +S1S2, RRR Abd: soft, NT, +BS, obese Ext: trace edema A/P: 73f hx of dm and htn admitted with intractable vomiting: #nausea - much improved - titrate anti-emetics - s/p EGD - GI c/s appreciated #UTI - off Abx - repeat UA unrevealing #hypertension - improving - secondary to fluid overload - added norvasc - continue home meds #DARRYL/CKD - resolved #dm continue nph and levemir monitor finger sticks sliding scale diabetic diet when eating #hypoxia - improving - continue lasix #chronic HFpEF - continue diuretic therapy - added lasix #DVT prophylaxis Dispo: to follow clinically, anticipate discharge in 24-48 hours VS,Sheryle, I+O VS, Fishbone, I+O Laboratory Tests 12/05/18 05:33 Red Blood Count 3.14 L, Mean Corpuscular Volume 97.5 H, Mean Corpuscular Hemoglobin 30.3, Mean Corpuscular Hemoglobin Concent 31.0 L, Red Cell Distrib ution Width 13.8, Calcium Level 8.2 L Vital Signs Date Time Temp Pulse Resp B/P (MAP) Pulse Ox O2 Delivery O2 Flow Rate FiO2 12/05/18 06:00 97.5 70 20 123/58 (79) 94 1.0 I&O- Last 24 Hours up to 6 AM 12/05/18 06:00 Intake Total 496 ml Output Total 1800 ml Balance -1304 ml EARLINE BARRIENTOS MD Dec 05, 2018 08:51
[2018-12-05] MEDS: BISACODYL 10 MG SUPP PR SCH (10:03)
[2018-12-05] MEDS: HEPARIN SOD (PORCINE) 5000 UNITS/ML VIAL SQ SCH ×2 (10:04→22:10)
[2018-12-05] MEDS: ASPIRIN 81 MG ENTERIC TAB PO SCH (10:05)
[2018-12-05] MEDS: FLUoxetine 20 MG CAP PO SCH (10:06)
[2018-12-05] MEDS: CALCITRIOL 0.25 MCG CAP (S0169) PO SCH (10:06)
[2018-12-05] MEDS: TORSEMIDE 20 MG TAB PO SCH (10:06)
[2018-12-05] MEDS: FOLIC ACID 1 MG TAB PO SCH (10:06)
[2018-12-05] MEDS: **hydrALAZINE** 50 MG TAB PO SCH ×3 (10:12→22:11)
[2018-12-05] MEDS: amLODIPine 5 MG TAB PO SCH (10:12)
[2018-12-05] MEDS: CARVedilol 6.25 MG TAB PO SCH ×2 (10:13→22:10)
[2018-12-05] MEDS: NYSTATIN 100,000 UNITS/GM TOPICAL PWD 15 GM TOP SCH ×2 (10:14→22:11)
[2018-12-05] MEDS: HumuLIN N INSULIN (NovoLIN N) PER UNIT SC SCH (13:02)
[2018-12-05 14:00] VITALS: BP 125/56
[2018-12-05 22:00] VITALS: BP 124/58
[2018-12-05] MEDS: LEVEMIR (INSULIN DETEMIR) 1 UNITS/0.01ML SC SCH (22:10)
[2018-12-06] MEDS: SUCRALFATE SUSP 1GM/10ML UD PO SCH ×5 (00:10→23:29)
[2018-12-06] MEDS: PANTOPRAZOLE 40MG INJ (PROTONIX) (C9113) IV SCH ×2 (02:06→14:26)
[2018-12-06 06:00] VITALS: BP 153/66
[2018-12-06 06:05] LABS: HEMATOCRIT 28.8 % (36.0-47.0); HEMOGLOBIN 9.1 g/dl (12.0-15.5); MEAN CORPUSCULAR HEMOGLOBIN 29.7 pg (27.0-33.0); MEAN CORPUSCULAR HGB CONC 31.6 g/dl (32.0-36.5); MEAN CORPUSCULAR VOLUME 94.1 fl (80.0-96.0); PLATELET COUNT, AUTOMATED 132 10^3/uL (150-450); RED BLOOD COUNT 3.06 10^6/uL (4.00-5.40); WHITE BLOOD COUNT 6.7 10^3/uL (4.0-10.0)
[2018-12-06 06:25] LABS: CALCIUM LEVEL 8.4 MG/DL (8.8-10.2); CREATININE FOR GFR 1.62 MG/DL (0.55-1.30); GLOMERULAR FILTRATION RATE 33.3 (>39); POTASSIUM SERUM 3.2 MEQ/L (3.5-5.1)
[2018-12-06] MEDS: HumaLOG INSULIN (NovoLOG) PER UNIT SC SCH ×3 (07:30→17:55)
[2018-12-06] MEDS: amLODIPine 5 MG TAB PO SCH (10:08)
[2018-12-06] MEDS: NYSTATIN 100,000 UNITS/GM TOPICAL PWD 15 GM TOP SCH ×2 (10:08→21:00)
[2018-12-06] MEDS: FLUoxetine 20 MG CAP PO SCH (10:08)
[2018-12-06] MEDS: HEPARIN SOD (PORCINE) 5000 UNITS/ML VIAL SQ SCH ×2 (10:08→21:28)
[2018-12-06] MEDS: FOLIC ACID 1 MG TAB PO SCH (10:08)
[2018-12-06] MEDS: TORSEMIDE 20 MG TAB PO SCH (10:09)
[2018-12-06] MEDS: **hydrALAZINE** 50 MG TAB PO SCH ×3 (10:09→21:28)
[2018-12-06] MEDS: CARVedilol 6.25 MG TAB PO SCH ×2 (10:09→21:29)
[2018-12-06] MEDS: CALCITRIOL 0.25 MCG CAP (S0169) PO SCH (10:10)
[2018-12-06] MEDS: ASPIRIN 81 MG ENTERIC TAB PO SCH (10:10)
[2018-12-06] MEDS: ONDANSETRON 4MG/2ML VIAL (J2405) IV PRN (10:21)
[2018-12-06] MEDS: BISACODYL 10 MG SUPP PR SCH (14:10)
[2018-12-06] MEDS: HumuLIN N INSULIN (NovoLIN N) PER UNIT SC SCH (14:11)
--- NOTE | 2018-12-06 19:18 | IPNPDOC ---
Text Note Date of Service The patient was seen on 12/06/18. NOTE NOTE Patient seen and examined at bedside. Pt stated that she had some episodes of nausea earlier in the morning which resolved. She asked about upgrading her diet. She denies fever, chills, n/v, abdominal pain, diarrhea or dysuria Objective: General: NAD, morbidly obese F HEENT: NC/AT, EOMI, PERRLA Lungs: CTA B/L Heart: +S1S2, RRR Abd: soft, NT, +BS, obese Ext: trace edema b/l A/P: 73f hx of dm and htn admitted with intractable vomiting. Pt received anti-emetic treatment with positive effect. #nausea most likely 2/2 possible gastroparesis - much improved - titrate anti-emetics - diet was upgraded today -pt will need follow up with GI team in the outpt settings #UTI - no symptoms of UTI, no dysuria #hypertension is under control - improving - secondary to fluid overload - continue home meds #DARRYL/CKD 2/2 dehydration - resolved #dm continue nph and levemir monitor finger sticks sliding scale diabetic diet when eating #chronic HFpEF - continue current diuretic therapy #DVT prophylaxis Dispo: to follow clinically, anticipate discharge tomorrow VS,Sheryle, I+O VS, Sheryle, I+O Laboratory Tests 12/06/18 05:33 Red Blood Count 3.06 L, Mean Corpuscular Volume 94.1, Mean Corpuscular Hemoglobin 29.7, Mean Corpuscular Hemoglobin Concent 31.6 L, Red Cell Distribution Width 14.0, Calcium Level 8.4 L Vital Signs Date Time Temp Pulse Resp B/P (MAP) Pulse Ox O2 Delivery O2 Flow Rate FiO2 12/06/18 16:48 147/68 12/06/18 14:13 93 12/06/18 10:09 76 12/06/18 06:00 97.8 18 12/05/18 06:00 1.0 I&O- Last 24 Hours up to 6 AM 12/06/18 06:00 Intake Total 900 ml Output Total 750 ml Balance 150 ml REYES DE LEON DO Dec 06, 2018 19:18
[2018-12-06] MEDS: LEVEMIR (INSULIN DETEMIR) 1 UNITS/0.01ML SC SCH (21:27)
[2018-12-06 22:00] VITALS: BP 123/58
[2018-12-07] MEDS: PANTOPRAZOLE 40MG INJ (PROTONIX) (C9113) IV SCH (01:25)
[2018-12-07] MEDS: SUCRALFATE SUSP 1GM/10ML UD PO SCH ×2 (05:52→12:56)
[2018-12-07 06:00] VITALS: BP 128/58
[2018-12-07 06:02] LABS: HEMATOCRIT 29.4 % (36.0-47.0); HEMOGLOBIN 9.2 g/dl (12.0-15.5); MEAN CORPUSCULAR HEMOGLOBIN 29.8 pg (27.0-33.0); MEAN CORPUSCULAR HGB CONC 31.3 g/dl (32.0-36.5); MEAN CORPUSCULAR VOLUME 95.1 fl (80.0-96.0); PLATELET COUNT, AUTOMATED 140 10^3/uL (150-450); RED BLOOD COUNT 3.09 10^6/uL (4.00-5.40); WHITE BLOOD COUNT 7.4 10^3/uL (4.0-10.0)
[2018-12-07 06:25] LABS: CALCIUM LEVEL 8.4 MG/DL (8.8-10.2); CREATININE FOR GFR 1.95 MG/DL (0.55-1.30); GLOMERULAR FILTRATION RATE 26.9 (>39); MAGNESIUM LEVEL 1.9 MG/DL (1.8-2.4); PHOSPHORUS LEVEL 2.6 MG/DL (2.5-4.9); POTASSIUM SERUM 3.3 MEQ/L (3.5-5.1)
[2018-12-07] MEDS: TORSEMIDE 20 MG TAB PO SCH (08:18)
[2018-12-07] MEDS: FLUoxetine 20 MG CAP PO SCH (08:18)
[2018-12-07] MEDS: FOLIC ACID 1 MG TAB PO SCH (08:19)
[2018-12-07] MEDS: CALCITRIOL 0.25 MCG CAP (S0169) PO SCH (08:19)
[2018-12-07] MEDS: ASPIRIN 81 MG ENTERIC TAB PO SCH (08:19)
[2018-12-07] MEDS: amLODIPine 5 MG TAB PO SCH (08:19)
[2018-12-07 08:20] VITALS: BP 121/61
[2018-12-07] MEDS: HumaLOG INSULIN (NovoLOG) PER UNIT SC SCH ×2 (08:20→12:56)
[2018-12-07] MEDS: CARVedilol 6.25 MG TAB PO SCH (08:20)
[2018-12-07] MEDS: NYSTATIN 100,000 UNITS/GM TOPICAL PWD 15 GM TOP SCH (08:21)
[2018-12-07] MEDS: HEPARIN SOD (PORCINE) 5000 UNITS/ML VIAL SQ SCH (08:21)
[2018-12-07] MEDS: BISACODYL 10 MG SUPP PR SCH ×2 (08:21→09:12)
[2018-12-07] MEDS: **hydrALAZINE** 50 MG TAB PO SCH (08:43)
[2018-12-07 08:44] LABS: PERCENT SATURATION 22.6 % (13.2-45.0)
[2018-12-07] MEDS ORDERED: MIRALAX *UNIT DOSE* 17GM PACKET PO SCH (09:00)
[2018-12-07] MEDS: MOM 30ML SUSPENSION UDC PO PRN (09:12)
[2018-12-07] MEDS ORDERED: POTASSIUM CHLORIDE 10 MEQ SR TABLET PO ONE (09:15)
[2018-12-07 10:09] LABS: FOLATE > 24.0 NG/ML (>5.4); VITAMIN B12 LEVEL 1249 PG/ML (247-911)
[2018-12-07] MEDS ORDERED: BISA10SU PR (12:41)
[2018-12-07] MEDS ORDERED: REGL5TAB2 PO (12:41)
[2018-12-07] MEDS: HumuLIN N INSULIN (NovoLIN N) PER UNIT SC SCH (12:56)
--- NOTE | 2018-12-07 13:00 | DS.PDOC ---
Discharge Summary General Date of Admission Nov 26, 2018 at 18:33 Date of Discharge 12/07/2018 Attending Physician: REYES DE LEON DO Discharge Summary PROCEDURES PERFORMED DURING STAY: None. ADMITTING DIAGNOSES: Diabetes type 2 Gastroparesis Intractable nausea Constipation DISCHARGE DIAGNOSES: Diabetes type 2 Anemia Gastroparesis Intractable nausea Constipation COMPLICATIONS/CHIEF COMPLAINT: Intractable vomiting HISTORY OF PRESENT ILLNESS: Patient 73 years old female with past medical history diabetes mellitus type 2, chronic constipation present hospital she developed intractable nausea and vomiting for a few days. In Emergency department abnormal CAT scan did not show any acute pathology. Patient was found to have mild dyspnea. HOSPITAL COURSE: During hospital course patient received treatment with antiemetics Also patient was found to have iron deficient anemia. After treatment with antiemetics nausea resolved, patient was able to tolerate diabetes diet. Most likely patient has gastroparesis due to long-standing diabetes. Recommend metoclopramide in the outpatient settings. Patient received treatment with diabetes medication, her blood glucose levels was under control. Patient will need follow-up with snow plow tractor operator in the outpatient settings for colonoscopy. Patient stated that she never had colonoscopy. Also, patient will need to see grading machine operator for evaluation and treatment of gastroparesis. DISCHARGE MEDICATIONS: Please see below. ALLERGIES: Please see below. PHYSICAL EXAMINATION ON DISCHARGE: General: NAD, sitting comfortably at edge of bed HEENT: NC/AT, EOMI Lungs: CTA B/L Heart: +S1S2, RRR Abd: soft, NT, +BS, obese Ext: trace edema LABORATORY DATA: Please see below. IMAGING: reviewed ACTIVITY: As tolerated. DIET: Diabetes diet DISCHARGE PLAN: penitentiary DISPOSITION: . DISCHARGE INSTRUCTIONS: 1. Follow-up with grading machine operator and snow plow tractor operator in the outpatient settings DISCHARGE CONDITION:Stable TIME SPENT ON DISCHARGE: Greater than 20 minutes. Vital Signs/I&Os Vital Signs Date Time Temp Pulse Resp B/P (MAP) Pulse Ox O2 Delivery O2 Flow Rate FiO2 12/07/18 08:20 75 121/61 12/07/18 06:00 97.8 18 92 12/05/18 06:00 1.0 I&O- Last 24 Hours up to 6 AM 12/07/18 06:00 Intake Total 720 ml Output Total 0 ml Balance 720 ml Laboratory Data Labs 24H Laboratory Tests 2 12/06/18 17:21: Bedside Glucose (Misc Panel) 156H 12/06/18 20:46: Bedside Glucose (Misc Panel) 103 12/07/18 05:23: Nucleated Red Blood Cells % (auto) 0.0, Anion Gap 6L, Glomerular Filtration Rate 26.9L, Blood Urea Nitrogen 20H, Creatinine 1.95H, Sodium Level 145, Potassium Level 3.3L, Chloride Level 109H, Carbon Dioxide Level 30, Calcium Level 8.4L, Phosphorus Level 2.6, Magnesium Level 1.9, Iron Level 31L, Total Iron Binding Capacity 137L, Transferrin % Saturation 22.6 12/07/18 09:09: Vitamin B12 Level 1249H, Folate > 24.0 12/07/18 11:28: Bedside Glucose (Misc Panel) 142H CBC/BMP Laboratory Tests 12/07/18 05:23 Red Blood Count 3.09 L, Mean Corpuscular Volume 95.1, Mean Corpuscular Hemoglobin 29.8, Mean Corpuscular Hemoglobin Concent 31.3 L, Red Cell Distribution Width 14.0, Calcium Level 8.4 L FSBS Laboratory Tests Test 12/06/18 17:21 12/06/18 20:46 12/07/18 11:28 Range/Units Bedside Glucose (Misc Panel) 156 103 142 83-110 MG/DL Discharge Medications Scheduled Aspirin (Aspirin EC) 81 Mg Tab, 81 MG PO DAILY, (Reported) Calcitriol (Calcitriol) 0.25 Mcg Capsule, 0.25 MCG PO 5XW, (Reported) MON, , WED, , WED Carvedilol (Carvedilol) 6.25 Mg Tab, 6.25 MG PO BID, (Reported) Cyanocobalamin (Vitamin B-12) (Vitamin B-12) 1,000 Mcg Tablet, 1,000 MCG PO DAILY, (Reported) Ferrous Sulfate (Ferrous Sulfate) 325 Mg Tab, 325 MG PO BID, (Reported) Fluoxetine Hcl (Fluoxetine HCl) 20 Mg Capsule, 20 MG PO DAILY, (Reported) Folic Acid (Folic Acid) 1 Mg Tab, 1 MG PO DAILY, (Reported) Insulin Detemir (Levemir Flextouch) 100 Unit/1 Ml Insuln.pen, 15 UNIT SC QHS, (Reported) Insulin NPH Human Isophane (Humulin N Kwikpen) 100 Unit/1 Ml Insuln.pen, 10 UNITS SC DAILY, (Reported) AT NOON Metoclopramide Hcl (Reglan) 5 Mg Tablet, 5 MG PO TID 1 hour prior to procedure Torsemide (Torsemide) 10 Mg Tablet, 40 MG PO DAILY, (Reported) hydrALAZINE HCL (Hydralazine HCl) 100 Mg Tablet, 100 MG PO TID, (Reported) Scheduled PRN Acetaminophen (Acetaminophen) 325 Mg Tab, 650 MG PO Q6H PRN for PAIN, (Reported) Bisacodyl (Bisacodyl) 10 Mg Supp.rect, 10 MG TX DAILY PRN for CONSTIPATION Loperamide HCl (Imodium A-D) 2 Mg Tablet, 2 MG PO PRN PRN for DIARRHEA, (Reported) Magnesium Hydroxide (Milk of Magnesia) 1 Angela Angela, 30 ML PO DAILY PRN for CONSTIPATION, (Reported) Magnesium, Aluminum Hydroxide (Mag-Al Liquid) 1 Liq Liq, 30 ML PO DAILY PRN for CONSTIPATION, (Reported) Melatonin (Melatonin) 5 Mg Tab, 5 MG PO QHS PRN for INSOMNIA, (Reported) Ondansetron HCl (Zofran) 4 Mg Tablet, 4 MG PO Q6H PRN for NAUSEA, (Reported) Polyethylene Glycol 3350 (Miralax) 119 Gm Powder, 17 GM PO DAILY PRN for CONSTIPATION, (Reported) Polyvinyl Alcohol (Artificial Tears) 15 Ml Drops, 1 DROP OU PRN PRN for DRY EYES, (Reported) Allergies Coded Allergies: Latex, Natural Rubber (Verified Allergy, Unknown, Rash, 10/31/18) milk (Verified Allergy, Unknown, 10/31/18) REYES DE LEON DO Dec 07, 2018 13:00
== END 2018-12-07 13:40 | DRG 74 ==
LOC: EDBD 12:45 → M ED 12:45 → M ED INP 18:33 → M MSPAV 23:00
PROVIDERS: ADMIT Hospitalist; ATTEND Internal Medicine
PROC: 0DB68ZX Excision of Stomach, Via Natural or Artificial Opening Endoscopic, Diagnostic (ICD-10-PCS; principal; 2018-12-02 15:00)
DX: E11.43 Type 2 diabetes mellitus with diabetic autonomic (poly)neuropathy (principal); I50.32 Chronic diastolic (congestive) heart failure; N39.0 Urinary tract infection, site not specified; N17.9 Acute kidney failure, unspecified; K59.00 Constipation, unspecified; Z79.899 Other long term (current) drug therapy; Z79.82 Long term (current) use of aspirin; Z91.040 Latex allergy status; Z91.011 Allergy to milk products; Z79.4 Long term (current) use of insulin; K29.50 Unspecified chronic gastritis without bleeding

== ENCOUNTER → 2018-12-21 | Outpatient (REF) ==
[~2018-12-21] MED LIST changes: +BISA10SU PR; +FLUO20CA20 PO; -FLUO20CA8 PO; +HUMU1INJ2 SC; +LEVE1INJ5 SC; +REGL5TAB2 PO; +TORS10TA3 PO
[2018-12-21 08:54] LABS: HEMATOCRIT 26.2 % (36.0-47.0); HEMOGLOBIN 8.2 g/dl (12.0-15.5); MEAN CORPUSCULAR HEMOGLOBIN 29.7 pg (27.0-33.0); MEAN CORPUSCULAR HGB CONC 31.3 g/dl (32.0-36.5); MEAN CORPUSCULAR VOLUME 94.9 fl (80.0-96.0); PLATELET COUNT, AUTOMATED 149 10^3/uL (150-450); RED BLOOD COUNT 2.76 10^6/uL (4.00-5.40); WHITE BLOOD COUNT 5.7 10^3/uL (4.0-10.0)
[2018-12-21 09:15] LABS: CALCIUM LEVEL 8.2 MG/DL (8.8-10.2); CREATININE FOR GFR 1.47 MG/DL (0.55-1.30); GLOMERULAR FILTRATION RATE 37.3 (>39); POTASSIUM SERUM 4.2 MEQ/L (3.5-5.1)
== END ==
PROVIDERS: ATTEND Internal Medicine
DX: N18.9 Chronic kidney disease, unspecified (principal)

== ENCOUNTER → 2018-12-27 | Outpatient (REF) ==
[~2018-12-27] MED LIST changes: -FLUO20CA20 PO; +FLUO20CA8 PO
[2018-12-27 11:01] LABS: HEMATOCRIT 27.7 % (36.0-47.0); HEMOGLOBIN 8.5 g/dl (12.0-15.5); MEAN CORPUSCULAR HEMOGLOBIN 29.2 pg (27.0-33.0); MEAN CORPUSCULAR HGB CONC 30.7 g/dl (32.0-36.5); MEAN CORPUSCULAR VOLUME 95.2 fl (80.0-96.0); PLATELET COUNT, AUTOMATED 168 10^3/uL (150-450); RED BLOOD COUNT 2.91 10^6/uL (4.00-5.40); WHITE BLOOD COUNT 5.5 10^3/uL (4.0-10.0)
[2018-12-27 11:20] LABS: CALCIUM LEVEL 8.5 MG/DL (8.8-10.2); CREATININE FOR GFR 1.57 MG/DL (0.55-1.30); GLOMERULAR FILTRATION RATE 34.6 (>39)
== END ==
PROVIDERS: ATTEND Internal Medicine
DX: D64.9 Anemia, unspecified (principal)

== ENCOUNTER → 2018-12-30 | Outpatient (REF) ==
[2018-12-30 11:25] LABS: CALCIUM LEVEL 8.6 MG/DL (8.8-10.2); CREATININE FOR GFR 1.75 MG/DL (0.55-1.30); GLOMERULAR FILTRATION RATE 30.5 (>39); POTASSIUM SERUM 4.1 MEQ/L (3.5-5.1)
== END ==
PROVIDERS: ATTEND Internal Medicine
DX: R60.9 Edema, unspecified (principal)

== ENCOUNTER → 2019-01-03 | Outpatient (REF) | payer MEDICAID, MEDICARE, OTHER ==
[2019-01-03 10:48] LABS: CALCIUM LEVEL 8.4 MG/DL (8.8-10.2); CREATININE FOR GFR 1.6 MG/DL (0.55-1.30); GLOMERULAR FILTRATION RATE 33.8 (>39); POTASSIUM SERUM 3.7 MEQ/L (3.5-5.1)
== END ==
PROVIDERS: ATTEND Internal Medicine
DX: R06.9 Unspecified abnormalities of breathing (principal)

== ENCOUNTER → 2019-01-17 | Outpatient (REF) ==
[2019-01-17 11:03] LABS: HEMATOCRIT 28.5 % (36.0-47.0); MEAN CORPUSCULAR HEMOGLOBIN 29.5 pg (27.0-33.0); MEAN CORPUSCULAR HGB CONC 31.6 g/dl (32.0-36.5); MEAN CORPUSCULAR VOLUME 93.4 fl (80.0-96.0); PLATELET COUNT, AUTOMATED 118 10^3/uL (150-450); RED BLOOD COUNT 3.05 10^6/uL (4.00-5.40); WHITE BLOOD COUNT 6.2 10^3/uL (4.0-10.0)
[2019-01-17 11:26] LABS: CALCIUM LEVEL 8.3 MG/DL (8.8-10.2); CREATININE FOR GFR 1.56 MG/DL (0.55-1.30); GLOMERULAR FILTRATION RATE 34.8 (>39); POTASSIUM SERUM 4.1 MEQ/L (3.5-5.1)
== END ==
PROVIDERS: ATTEND Internal Medicine
DX: N18.9 Chronic kidney disease, unspecified (principal)

== ENCOUNTER → 2019-01-31 | Outpatient (REF) ==
[2019-01-31 09:40] LABS: CREATININE FOR GFR 1.25 MG/DL (0.55-1.30); POTASSIUM SERUM 3.8 MEQ/L (3.5-5.1)
== END ==
PROVIDERS: ATTEND Internal Medicine
DX: I50.9 Heart failure, unspecified (principal)

== ENCOUNTER → 2019-02-01 | Outpatient (REF) ==
[2019-02-01 09:49] LABS: PERCENT SATURATION 25.5 % (13.2-45.0)
== END ==
PROVIDERS: ATTEND Internal Medicine
DX: D64.9 Anemia, unspecified (principal)

== ENCOUNTER → 2019-02-14 | Outpatient (REF) ==
[2019-02-14 10:20] LABS: HEMATOCRIT 30.1 % (36.0-47.0); HEMOGLOBIN 9.5 g/dl (12.0-15.5); MEAN CORPUSCULAR HEMOGLOBIN 30.2 pg (27.0-33.0); MEAN CORPUSCULAR HGB CONC 31.6 g/dl (32.0-36.5); MEAN CORPUSCULAR VOLUME 95.6 fl (80.0-96.0); PLATELET COUNT, AUTOMATED 149 10^3/uL (150-450); RED BLOOD COUNT 3.15 10^6/uL (4.00-5.40); WHITE BLOOD COUNT 5.7 10^3/uL (4.0-10.0)
[2019-02-14 10:54] LABS: CALCIUM LEVEL 8.5 MG/DL (8.8-10.2); CREATININE FOR GFR 1.58 MG/DL (0.55-1.30); GLOMERULAR FILTRATION RATE 34.3 (>39); POTASSIUM SERUM 3.8 MEQ/L (3.5-5.1)
== END ==
PROVIDERS: ATTEND Internal Medicine
DX: D64.9 Anemia, unspecified (principal)

== ENCOUNTER → 2019-02-22 | Outpatient (CLI) | payer MEDICARE, MEDICAID ==
[~2019-02-22] MED LIST changes: +LIDOCAINE 2% INJ 100 MG/5 ML SDV (FOR ANES.) As Ordered ONE; +PROPOFOL 500 MG/50 ML VIAL As Ordered ONE
== END ==
LOC: M RAD 13:11
PROVIDERS: ATTEND Internal Medicine
DX: I50.9 Heart failure, unspecified (principal)

== ENCOUNTER → 2019-02-22 | Outpatient (REF) ==
[~2019-02-22] MED LIST changes: -LIDOCAINE 2% INJ 100 MG/5 ML SDV (FOR ANES.) As Ordered ONE; -PROPOFOL 500 MG/50 ML VIAL As Ordered ONE
--- NOTE | 2019-02-22 13:42 | REP ---
Two-view chest: 02/22/2019. Indication: Dyspnea. Comparison: 12/03/2018. Findings: Compared to the most recent study, the thoracic findings are stable without new air space consolidations. Increased interstitial markings particularly along the bases with plate-like atelectasis suspected as well. No significant pleural effusion or pneumothorax is present. Cardiomegaly persists. Impression: No acute findings compared to the most recent chest x-ray dated 12/03/2018. Electronically Signed by Lukas Saavedra DO 02/22/2019 01:34 P
== END ==
LOC: M RAD 10:06
PROVIDERS: ATTEND Internal Medicine
DX: I50.9 Heart failure, unspecified (principal)

== ENCOUNTER 2019-02-24 09:05 | Day surgery (SDC) | payer MEDICARE, MEDICAID ==
[~2019-02-24] VITALS: Ht 152.4 cm; Wt 131.5 kg
[~2019-02-24 09:05] MED LIST changes: +NS 1,000 ML IV ONE
[2019-02-24] MEDS ORDERED: PROPOFOL 500 MG/50 ML VIAL As Ordered ONE (11:42)
--- NOTE | 2019-02-24 12:10 | ROOR ---
Patient Name: Derrick Rodriguez Procedure Date: 02/24/2019 10:27 AM Date of : 1945 Age: 73 Room: [facility] Gender: Female Note Status: Finalized Procedure: Colonoscopy Indications: Screening for colorectal malignant neoplasm Providers: Domenic aSndhu MD Referring MD: Karla Dupont DO Requesting Provider: Medicines: Monitored Anesthesia Care Complications: No immediate complications. Procedure: Pre-Anesthesia Assessment: - Prior to the procedure, a History and Physical was performed, and patient medications and allergies were reviewed. The patient is competent. The risks and benefits of the procedure and the sedation options and risks were discussed with the patient. All questions were answered and informed consent was obtained. Patient identification and proposed procedure were verified by the physician, the nurse and the anesthesiologist in the procedure room. Mental Status Examination: alert and oriented. Airway Examination: normal oropharyngeal airway and neck mobility. Respiratory Examination: clear to auscultation. CV Examination: normal. Prophylactic Antibiotics: The patient does not require prophylactic antibiotics. Prior Anticoagulants: The patient has taken no previous anticoagulant or antiplatelet agents. ASA Grade Assessment: III - A patient with severe systemic disease. After reviewing the risks and benefits, the patient was deemed in satisfactory condition to undergo the procedure. The anesthesia plan was to use monitored anesthesia care (MAC). Immediately prior to administration of medications, the patient was re-assessed for adequacy to receive sedatives. The heart rate, respiratory rate, oxygen saturations, blood pressure, adequacy of pulmonary ventilation, and response to care were monitored throughout the procedure. The physical status of the patient was re-assessed after the procedure. The Colonoscope was introduced through the anus and advanced to the terminal ileum, with identification of the appendiceal orifice and IC valve. The colonoscopy was performed without difficulty. The patient tolerated the procedure well. The quality of the bowel preparation was good. The ileocecal valve, appendiceal orifice, and rectum were photographed. Scope insertion time was 4 minutes. Scope withdrawal time was 30 minutes. The total duration of the procedure was 45 minutes. Findings: The perianal and digital rectal examinations were normal. The terminal ileum appeared normal. Three sessile polyps were found in the cecum. The polyps were 8 to 15 mm in size. These polyps were removed with a hot snare. Resection and retrieval were complete. To close a defect after polypectomy, one hemostatic clip was successfully placed. There was no bleeding at the end of the procedure. Verification of patient identification for the specimen was done by the physician and nurse using the patient's name, date and medical record number. Estimated blood loss was minimal. Six multi-lobulated and sessile polyps were found in the ascending colon. The polyps were 10 to 30 mm in size. These polyps were removed with a hot snare. Resection and retrieval were complete. To close a defect after polypectomy, three hemostatic clips were successfully placed. There was no bleeding at the end of the procedure. A 20 mm polyp was found in the sigmoid colon. The polyp was semi-sessile. The polyp was removed with a hot snare. Resection and retrieval were complete. To close a defect after polypectomy, one hemostatic clip was successfully placed. There was no bleeding at the end of the procedure. Non-bleeding external and internal hemorrhoids were found during anoscopy. The hemorrhoids were large. Impression: - The examined portion of the ileum was normal. - Three 8 to 15 mm polyps in the cecum, removed with a hot snare. Resected and retrieved. Clip was placed. - Six 10 to 30 mm polyps in the ascending colon, removed with a hot snare. Resected and retrieved. Clips were placed. - One 20 mm polyp in the sigmoid colon, removed with a hot snare. Resected and retrieved. Clip was placed. - Non-bleeding external and internal hemorrhoids. Recommendation: - Patient has a contact number available for emergencies. The signs and symptoms of potential delayed complications were discussed with the patient. Return to normal activities tomorrow. Written discharge instructions were provided to the patient. - Clear liquid diet for 1 day, then advance as tolerated to high fiber diet. - Continue present medications. - Miralax 1 capful (17 grams) in 8 ounces of water PO daily for 5 days. - Await pathology results. - Repeat colonoscopy in 6 months for surveillance based on pathology results. - Telephone GI clinic if symptomatic 1 - 2 weeks. Please call GI clinic @ [phone] for apppointment date and time. - Return to GI clinic in 3 months. - Return to primary care physician. Domenic Sandhu MD Domenic Sandhu MD 02/24/2019 12:09:58 PM Electronically signed by Domenic Sandhu MD Number of Addenda: 0 Note Initiated On: 02/24/2019 10:27 AM Estimated Blood Loss: Estimated blood loss was minimal.
[2019-02-24 12:20] VITALS: BP 170/75
== END 2019-02-24 12:42 | disposition home or self-care (01) ==
LOC: M OPP 09:05
PROVIDERS: ATTEND Internal Medicine Gastroenterology
DX: Z12.11 Encounter for screening for malignant neoplasm of colon (principal); K64.8 Other hemorrhoids; D12.0 Benign neoplasm of cecum; D12.2 Benign neoplasm of ascending colon; D12.5 Benign neoplasm of sigmoid colon; N18.3 Chronic kidney disease, stage 3 (moderate); D50.9 Iron deficiency anemia, unspecified; E10.9 Type 1 diabetes mellitus without complications; Z79.4 Long term (current) use of insulin; Z79.82 Long term (current) use of aspirin; Z79.899 Other long term (current) drug therapy; Z91.040 Latex allergy status

== ENCOUNTER → 2019-03-21 | Outpatient (REF) ==
[~2019-03-21] MED LIST changes: -NS 1,000 ML IV ONE
[2019-03-21 10:42] LABS: HEMATOCRIT 30.7 % (36.0-47.0); HEMOGLOBIN 9.2 g/dl (12.0-15.5); MEAN CORPUSCULAR HEMOGLOBIN 28.8 pg (27.0-33.0); MEAN CORPUSCULAR VOLUME 95.9 fl (80.0-96.0); PLATELET COUNT, AUTOMATED 164 10^3/uL (150-450); WHITE BLOOD COUNT 6.3 10^3/uL (4.0-10.0)
[2019-03-21 11:03] LABS: CALCIUM LEVEL 8.4 MG/DL (8.8-10.2); CREATININE FOR GFR 1.57 MG/DL (0.55-1.30); GLOMERULAR FILTRATION RATE 34.6 (>39); POTASSIUM SERUM 4.6 MEQ/L (3.5-5.1)
== END ==
PROVIDERS: ATTEND Internal Medicine
DX: D64.9 Anemia, unspecified (principal)

== ENCOUNTER → 2019-03-28 | Outpatient (REF) ==
[2019-03-28 10:48] LABS: PERCENT SATURATION 26.5 % (13.2-45.0)
== END ==
PROVIDERS: ATTEND Internal Medicine
DX: D64.9 Anemia, unspecified (principal)

== ENCOUNTER → 2019-04-11 | Outpatient (REF) | payer MEDICARE, MEDICAID ==
[~2019-04-11] MED LIST changes: +FLUO20CA20 PO; -FLUO20CA8 PO
[2019-04-11 12:33] LABS: APPEARANCE, URINE CLEAR (CLEAR); BACTERIA, URINE AUTO 1+ (NEGATIVE); BILIRUBIN, URINE AUTO NEGATIVE (NEGATIVE); BLOOD, URINE BLOOD NEGATIVE (NEGATIVE); COLOR, URINE YELLOW (YELLOW); GLUCOSE, URINE (UA) AUTO 1+ mg/dL (NEGATIVE); KETONE, URINE AUTO NEGATIVE (NEGATIVE); LEUKOCYTE ESTERASE, URINE AUTO 1+ (NEGATIVE); NITRITE, URINE AUTO NEGATIVE (NEGATIVE); PROTEIN, URINE AUTO 3+ mg/dL (NEGATIVE); RBC, URINE AUTO 4 /HPF (0-3); SPECIFIC GRAVITY URINE AUTO 1.013 (1.002-1.035); SQUAMOUS EPITHELIAL CELL UR AU 1 /HPF (0-6); UROBILINOGEN, URINE AUTO 0.2 mg/dL (0.0-2.0); WBC, URINE AUTO 32 /HPF (0-3)
== END ==
LOC: M LAB REF 12:14
PROVIDERS: ATTEND Nurse Practitioner Family
DX: N18.4 Chronic kidney disease, stage 4 (severe) (principal); D50.9 Iron deficiency anemia, unspecified; N25.81 Secondary hyperparathyroidism of renal origin; M1A.30X0 Chronic gout due to renal impairment, unspecified site, without tophus (tophi); E83.42 Hypomagnesemia
CPT/HCPCS: 11042; 81001; G0463

== ENCOUNTER → 2019-04-11 | Outpatient (REF) ==
[2019-04-11 12:24] LABS: BASO # 0.1 10^3/uL (0.0-0.2); BASO % 0.9 % (0.0-1.0); EOS # 0.1 10^3/uL (0.0-0.5); HEMATOCRIT 31.9 % (36.0-47.0); HEMOGLOBIN 9.5 g/dl (12.0-15.5); LYMPH # 1.6 10^3/uL (1.5-5.0); LYMPH % 24.9 % (24.0-44.0); MEAN CORPUSCULAR HGB CONC 29.8 g/dl (32.0-36.5); MEAN CORPUSCULAR VOLUME 97.3 fl (80.0-96.0); MONO # 0.7 10^3/uL (0.0-0.8); MONO % 10.7 % (0.0-5.0); NEUTROPHILS # 3.9 10^3/uL (1.5-8.5); NEUTROPHILS % 61.3 % (36.0-66.0); PLATELET COUNT, AUTOMATED 142 10^3/uL (150-450); RED BLOOD COUNT 3.28 10^6/uL (4.00-5.40); WHITE BLOOD COUNT 6.4 10^3/uL (4.0-10.0)
[2019-04-11 12:52] LABS: ALBUMIN 2.8 GM/DL (3.2-5.2); CALCIUM LEVEL 8.5 MG/DL (8.8-10.2); CREATININE FOR GFR 1.83 MG/DL (0.55-1.30); MAGNESIUM LEVEL 2.5 MG/DL (1.8-2.4); PHOSPHORUS LEVEL 4.3 MG/DL (2.5-4.9); POTASSIUM SERUM 4.6 MEQ/L (3.5-5.1); URIC ACID 8.5 MG/DL (2.6-6.0)
[2019-04-11 12:53] LABS: CALCIUM LEVEL 8.9 MG/DL (8.8-10.2); CREATININE FOR GFR 1.84 MG/DL (0.55-1.30); GLOMERULAR FILTRATION RATE 28.8 (>39); POTASSIUM SERUM 4.5 MEQ/L (3.5-5.1)
[2019-04-11 13:47] LABS: PTH INTACT 87.5 PG/ML (18.5-88.0)
== END ==
PROVIDERS: ATTEND Family Medicine
DX: Z79.899 Other long term (current) drug therapy (principal)

== ENCOUNTER → 2019-04-20 | Outpatient (CLI) | payer MEDICARE, MEDICAID ==
--- NOTE | 2019-04-20 18:41 | REP ---
RIGHT LOWER EXTREMITY DOPPLER ARTERIAL ULTRASOUND: Real-time ultrasound evaluation and duplex Doppler interrogation of the right lower extremity arterial system is performed. Moderate to severe plaquing is seen in the arterial system of the right lower extremity. There are diffuse monophasic wave forms. This may indicate a more proximal stenosis. Right common femoral artery peak systolic velocity is mildly elevated. The more distal flow velocities are not elevated. RIGHT PEAK SYSTOLIC VELOCITY Common femoral artery 202 cm/s Profunda 174 cm/s Proximal SFA 124 cm/s Mid SFA 146 cm/s Distal SFA 127 cm/s Popliteal 87 cm/s Proximal ARMEN 32 cm/s Tibioperoneal trunk 86 cm/s Proximal OUTBOUND TELEMARKETER 51 cm/s Distal OUTBOUND TELEMARKETER 72 cm/s Distal ARMEN 41 cm/s IMPRESSION: Moderate to severe plaquing diffusely in the right lower extremity arterial system. Diffuse monophasic wave forms with mild elevation of the peak systolic velocity in the right common femoral artery. This may indicate e more proximal arterial stenosis. Electronically Signed by Enoc Olvera MD 04/20/2019 07:00 P
== END ==
LOC: M RAD 14:16
PROVIDERS: ATTEND Surgery
DX: I70.211 Atherosclerosis of native arteries of extremities with intermittent claudication, right leg (principal)

== ENCOUNTER → 2019-05-01 | Outpatient (REF) ==
[2019-05-01 13:21] LABS: BASO % 0.3 % (0.0-1.0); EOS % 0.1 % (0.0-3.0); HEMATOCRIT 31.4 % (36.0-47.0); HEMOGLOBIN 9.6 g/dl (12.0-15.5); LYMPH % 10.1 % (24.0-44.0); MEAN CORPUSCULAR HEMOGLOBIN 29.1 pg (27.0-33.0); MEAN CORPUSCULAR HGB CONC 30.6 g/dl (32.0-36.5); MEAN CORPUSCULAR VOLUME 95.2 fl (80.0-96.0); MONO # 0.8 10^3/uL (0.0-0.8); MONO % 7.9 % (0.0-5.0); NEUTROPHILS # 7.9 10^3/uL (1.5-8.5); NEUTROPHILS % 81.4 % (36.0-66.0); PLATELET COUNT, AUTOMATED 146 10^3/uL (150-450); WHITE BLOOD COUNT 9.7 10^3/uL (4.0-10.0)
[2019-05-01 13:46] LABS: ALBUMIN 2.5 GM/DL (3.2-5.2); CALCIUM LEVEL 8.5 MG/DL (8.8-10.2); CREATININE FOR GFR 1.51 MG/DL (0.55-1.30); GLOMERULAR FILTRATION RATE 36.2 (>39); MAGNESIUM LEVEL 2.1 MG/DL (1.8-2.4); PHOSPHORUS LEVEL 3.3 MG/DL (2.5-4.9); POTASSIUM SERUM 4.1 MEQ/L (3.5-5.1)
[2019-05-01 13:53] LABS: PTH INTACT 95.7 PG/ML (18.5-88.0)
[2019-05-01 17:42] LABS: APPEARANCE, URINE CLEAR (CLEAR); BACTERIA, URINE AUTO 1+ (NEGATIVE); BILIRUBIN, URINE AUTO NEGATIVE (NEGATIVE); BLOOD, URINE BLOOD NEGATIVE (NEGATIVE); COLOR, URINE YELLOW (YELLOW); GLUCOSE, URINE (UA) AUTO 1+ mg/dL (NEGATIVE); KETONE, URINE AUTO NEGATIVE (NEGATIVE); LEUKOCYTE ESTERASE, URINE AUTO 1+ (NEGATIVE); NITRITE, URINE AUTO NEGATIVE (NEGATIVE); PROTEIN, URINE AUTO 2+ mg/dL (NEGATIVE); RBC, URINE AUTO 6 /HPF (0-3); SQUAMOUS EPITHELIAL CELL UR AU 1 /HPF (0-6); UROBILINOGEN, URINE AUTO 0.2 mg/dL (0.0-2.0); WBC, URINE AUTO 19 /HPF (0-3)
[2019-05-01 18:37] LABS: CREATININE, URINE 61.5 MG/DL; MAU/CREAT RATIO 1160.9 MCG/MG (0.0-30.0)
== END ==
PROVIDERS: ATTEND Internal Medicine
DX: N18.9 Chronic kidney disease, unspecified (principal)

== ENCOUNTER → 2019-05-25 | Outpatient (REF) ==
[2019-05-25 12:21] LABS: HEMATOCRIT 29.2 % (36.0-47.0); HEMOGLOBIN 9.1 g/dl (12.0-15.5); MEAN CORPUSCULAR HEMOGLOBIN 29.4 pg (27.0-33.0); MEAN CORPUSCULAR HGB CONC 31.2 g/dl (32.0-36.5); MEAN CORPUSCULAR VOLUME 94.2 fl (80.0-96.0); PLATELET COUNT, AUTOMATED 138 10^3/uL (150-450); WHITE BLOOD COUNT 8.8 10^3/uL (4.0-10.0)
[2019-05-25 12:37] LABS: CALCIUM LEVEL 8.4 MG/DL (8.8-10.2); CREATININE FOR GFR 1.73 MG/DL (0.55-1.30); GLOMERULAR FILTRATION RATE 30.9 (>39); POTASSIUM SERUM 4.6 MEQ/L (3.5-5.1)
== END ==
PROVIDERS: ATTEND Internal Medicine
DX: N18.9 Chronic kidney disease, unspecified (principal)

== ENCOUNTER → 2019-06-13 | Outpatient (REF) | payer MEDICARE, MEDICAID ==
[~2019-06-13] MED LIST changes: -ARTIDRO2 OU; +ATOR40TA75 PO; +BACT800T5 PO; +CYAN500T8 PO; +MILKSUS3 PO; +ONDA4SOL PO; +PLAV1TAB2 PO; +POLYOPD OU; +SENN1TAB41 PO; +[UNRECOGNIZED DRUG - OTHER]
[2019-06-14 01:44] LABS: AMORPHOUS SEDIMENT SMALL (NEGATIVE); APPEARANCE, URINE HAZY (CLEAR); BACTERIA, URINE AUTO 1+ (NEGATIVE); BILIRUBIN, URINE AUTO NEGATIVE (NEGATIVE); BLOOD, URINE BLOOD NEGATIVE (NEGATIVE); COLOR, URINE YELLOW (YELLOW); GLUCOSE, URINE (UA) AUTO 1+ mg/dL (NEGATIVE); KETONE, URINE AUTO NEGATIVE (NEGATIVE); LEUKOCYTE ESTERASE, URINE AUTO 3+ (NEGATIVE); NITRITE, URINE AUTO NEGATIVE (NEGATIVE); PROTEIN, URINE AUTO 2+ mg/dL (NEGATIVE); RBC, URINE AUTO 13 /HPF (0-3); SPECIFIC GRAVITY URINE AUTO 1.009 (1.002-1.035); SQUAMOUS EPITHELIAL CELL UR AU 2 /HPF (0-6); UROBILINOGEN, URINE AUTO 0.2 mg/dL (0.0-2.0); WBC, URINE AUTO 91 /HPF (0-3)
== END ==
PROVIDERS: ATTEND Internal Medicine
DX: R35.0 Frequency of micturition (principal)

== ENCOUNTER → 2019-06-16 | Outpatient (REF) ==
[2019-06-16 10:47] LABS: CALCIUM LEVEL 8.7 MG/DL (8.8-10.2); CREATININE FOR GFR 2.23 MG/DL (0.55-1.30); GLOMERULAR FILTRATION RATE 23.1 (>39); POTASSIUM SERUM 5.1 MEQ/L (3.5-5.1)
[2019-06-16 14:10] LABS: HEMATOCRIT 32.5 % (36.0-47.0); HEMOGLOBIN 10.2 g/dl (12.0-15.5); MEAN CORPUSCULAR HEMOGLOBIN 29.7 pg (27.0-33.0); MEAN CORPUSCULAR HGB CONC 31.4 g/dl (32.0-36.5); MEAN CORPUSCULAR VOLUME 94.5 fl (80.0-96.0); PLATELET COUNT, AUTOMATED 156 10^3/uL (150-450); RED BLOOD COUNT 3.44 10^6/uL (4.00-5.40); WHITE BLOOD COUNT 7.8 10^3/uL (4.0-10.0)
== END ==
PROVIDERS: ATTEND Internal Medicine
DX: N18.9 Chronic kidney disease, unspecified (principal)

== ENCOUNTER → 2019-06-17 | Outpatient (REF) ==
[2019-06-17 10:23] LABS: CREATININE FOR GFR 2.4 MG/DL (0.55-1.30); GLOMERULAR FILTRATION RATE 21.2 (>39)
== END ==
PROVIDERS: ATTEND Internal Medicine
DX: N18.9 Chronic kidney disease, unspecified (principal)

== ENCOUNTER → 2019-06-19 | Outpatient (REF) ==
[2019-06-19 11:50] LABS: HEMATOCRIT 30.5 % (36.0-47.0); HEMOGLOBIN 9.5 g/dl (12.0-15.5); MEAN CORPUSCULAR HGB CONC 31.1 g/dl (32.0-36.5); MEAN CORPUSCULAR VOLUME 96.2 fl (80.0-96.0); PLATELET COUNT, AUTOMATED 166 10^3/uL (150-450); RED BLOOD COUNT 3.17 10^6/uL (4.00-5.40); WHITE BLOOD COUNT 7.6 10^3/uL (4.0-10.0)
[2019-06-19 12:18] LABS: CALCIUM LEVEL 8.4 MG/DL (8.8-10.2); CREATININE FOR GFR 2.1 MG/DL (0.55-1.30); GLOMERULAR FILTRATION RATE 24.6 (>39); POTASSIUM SERUM 4.7 MEQ/L (3.5-5.1)
== END ==
PROVIDERS: ATTEND Internal Medicine
DX: N18.9 Chronic kidney disease, unspecified (principal)

== ENCOUNTER → 2019-06-21 | Outpatient (CLI) | payer MEDICARE, MEDICAID ==
[2019-06-21 08:40] VITALS: BP 174/73
--- NOTE | 2019-06-21 09:48 | ROOPDOC ---
[facility] Report Of Operation Report of Operation DATE OF PROCEDURE: 06/21/19 This is a very pleasant 74-year-old patient was scheduled for an arteriogram today due to nonhealing wound of the right foot, now healed. We rechecked her labs today and her creatinine is up to 2.1 and her GFR is down to 26.4. Since her wound is healed, I do not feel there is urgency to perform an arteriogram today, and I would prefer the patient follow up with nephrology to see if we might optimize her renal function before trying to perform an arteriogram. She is at higher risk for contrast-induced nephropathy with her GFR is low as it is, and I feel the risks outweigh the benefits today. I discussed this with the patient is she is agreeable. I will let Dr. Bright no as well. Hopefully she can follow up with nephrology and it week or 2 to see if maybe there is a way to optimize her renal function. We will hold off on arteriogram and contrast use at this time. No procedure performed today. LIBERTY SWAIN MD Jun 21, 2019 09:48
== END ==
LOC: M IRPRO 08:27 → EEVIPCON 09:30
PROVIDERS: ATTEND Surgery Vascular Surgery
DX: I73.9 Peripheral vascular disease, unspecified (principal); Z53.8 Procedure and treatment not carried out for other reasons; I13.0 Hypertensive heart and chronic kidney disease with heart failure and stage 1 through stage 4 chronic kidney disease, or unspecified chronic kidney disease; I50.32 Chronic diastolic (congestive) heart failure; N18.3 Chronic kidney disease, stage 3 (moderate); E11.22 Type 2 diabetes mellitus with diabetic chronic kidney disease; D50.9 Iron deficiency anemia, unspecified; F32.9 Major depressive disorder, single episode, unspecified; E21.3 Hyperparathyroidism, unspecified; Z79.899 Other long term (current) drug therapy; Z79.82 Long term (current) use of aspirin; Z79.01 Long term (current) use of anticoagulants; Z87.891 Personal history of nicotine dependence

== ENCOUNTER → 2019-06-22 | Outpatient (REF) | payer MEDICARE, MEDICAID ==
[2019-06-22 11:58] LABS: CALCIUM LEVEL 7.7 MG/DL (8.8-10.2); CREATININE FOR GFR 1.63 MG/DL (0.55-1.30); POTASSIUM SERUM 5.1 MEQ/L (3.5-5.1)
== END ==
PROVIDERS: ATTEND Physician Assistant
DX: N18.9 Chronic kidney disease, unspecified (principal)

== ENCOUNTER → 2019-06-28 | Outpatient (REF) | payer MEDICARE, MEDICAID ==
[2019-06-28 12:52] LABS: HEMATOCRIT 28.6 % (36.0-47.0); HEMOGLOBIN 8.9 g/dl (12.0-15.5); MEAN CORPUSCULAR HEMOGLOBIN 29.9 pg (27.0-33.0); MEAN CORPUSCULAR HGB CONC 31.1 g/dl (32.0-36.5); PLATELET COUNT, AUTOMATED 139 10^3/uL (150-450); RED BLOOD COUNT 2.98 10^6/uL (4.00-5.40); WHITE BLOOD COUNT 6.1 10^3/uL (4.0-10.0)
[2019-06-28 12:58] LABS: CALCIUM LEVEL 8.6 MG/DL (8.8-10.2); CREATININE FOR GFR 1.76 MG/DL (0.55-1.30); GLOMERULAR FILTRATION RATE 30.2 (>39); POTASSIUM SERUM 5.3 MEQ/L (3.5-5.1)
== END ==
PROVIDERS: ATTEND Internal Medicine
DX: N39.0 Urinary tract infection, site not specified (principal); Z22.322 Carrier or suspected carrier of Methicillin resistant Staphylococcus aureus

== ENCOUNTER → 2019-06-30 | Outpatient (REF) | payer MEDICARE, MEDICAID | PROVIDERS: ATTEND Physician Assistant | DX: E87.5 Hyperkalemia (principal) ==

== ENCOUNTER → 2019-07-01 | Outpatient (REF) | payer MEDICARE, MEDICAID | PROVIDERS: ATTEND Internal Medicine | DX: Z22.322 Carrier or suspected carrier of Methicillin resistant Staphylococcus aureus (principal) ==

== ENCOUNTER → 2019-07-07 | Outpatient (REF) | payer MEDICARE, MEDICAID ==
[~2019-07-07] MED LIST changes: +ASPECRE TOP
--- NOTE | 2019-07-10 10:29 | REPPI ---
REASON: Pain after trauma. Two views cannot rule out a fracture. A trauma series consists of four views. Limited two view examination of the left hand show degenerative changes throughout the digits and mildly in the wrist region. Jewelry obscures the mid diaphyses of the proximal phalanges of the third and fourth digits. IMPRESSION: Limited examination as described above showing chronic changes. Electronically Signed by Arvind Milligan DO 07/10/2019 01:32 P
--- NOTE | 2019-07-10 10:30 | REPPI ---
REASON: Pain after trauma. AP and lateral portable views were obtained. A trauma series consists of four views. A fracture cannot be ruled out by this limited portable two view exam. There is no gross fracture. Electronically Signed by Arvind Milligan DO 07/10/2019 01:32 P
== END ==
PROVIDERS: ATTEND Internal Medicine
DX: M79.642 Pain in left hand (principal); M25.562 Pain in left knee

== ENCOUNTER → 2019-07-18 | Outpatient (REF) ==
[2019-07-18 12:18] LABS: HEMATOCRIT 31.5 % (36.0-47.0); HEMOGLOBIN 9.7 g/dl (12.0-15.5); MEAN CORPUSCULAR HEMOGLOBIN 29.5 pg (27.0-33.0); MEAN CORPUSCULAR HGB CONC 30.8 g/dl (32.0-36.5); MEAN CORPUSCULAR VOLUME 95.7 fl (80.0-96.0); PLATELET COUNT, AUTOMATED 146 10^3/uL (150-450); RED BLOOD COUNT 3.29 10^6/uL (4.00-5.40); WHITE BLOOD COUNT 6.5 10^3/uL (4.0-10.0)
[2019-07-18 12:51] LABS: CALCIUM LEVEL 8.5 MG/DL (8.8-10.2); CREATININE FOR GFR 1.51 MG/DL (0.55-1.30); GLOMERULAR FILTRATION RATE 36.1 (>39); POTASSIUM SERUM 4.6 MEQ/L (3.5-5.1)
== END ==
PROVIDERS: ATTEND Internal Medicine
DX: N18.9 Chronic kidney disease, unspecified (principal)

== ENCOUNTER → 2019-07-28 | Outpatient (REF) | payer MEDICARE, MEDICAID ==
[2019-07-28 10:05] LABS: BASO # 0.1 10^3/uL (0.0-0.2); BASO % 1.2 % (0.0-1.0); EOS # 0.2 10^3/uL (0.0-0.5); EOS % 2.6 % (0.0-3.0); HEMATOCRIT 30.6 % (36.0-47.0); HEMOGLOBIN 9.5 g/dl (12.0-15.5); LYMPH # 1.3 10^3/uL (1.5-5.0); LYMPH % 19.6 % (24.0-44.0); MEAN CORPUSCULAR HEMOGLOBIN 30.1 pg (27.0-33.0); MEAN CORPUSCULAR VOLUME 96.8 fl (80.0-96.0); MONO # 0.6 10^3/uL (0.0-0.8); MONO % 8.6 % (0.0-5.0); NEUTROPHILS # 4.6 10^3/uL (1.5-8.5); NEUTROPHILS % 67.7 % (36.0-66.0); PLATELET COUNT, AUTOMATED 156 10^3/uL (150-450); RED BLOOD COUNT 3.16 10^6/uL (4.00-5.40); WHITE BLOOD COUNT 6.8 10^3/uL (4.0-10.0)
[2019-07-28 10:38] LABS: ALBUMIN 2.7 GM/DL (3.2-5.2); CALCIUM LEVEL 8.4 MG/DL (8.8-10.2); CREATININE FOR GFR 1.75 MG/DL (0.55-1.30); GLOMERULAR FILTRATION RATE 30.4 (>39); PHOSPHORUS LEVEL 4.2 MG/DL (2.5-4.9); POTASSIUM SERUM 4.3 MEQ/L (3.5-5.1)
[2019-07-28 10:41] LABS: PTH INTACT 80.1 PG/ML (18.5-88.0)
== END ==
PROVIDERS: ATTEND Internal Medicine
DX: N18.9 Chronic kidney disease, unspecified (principal)

== ENCOUNTER → 2019-08-01 | Outpatient (REF) | payer MEDICARE, MEDICAID ==
[2019-08-01 10:20] LABS: APPEARANCE, URINE HAZY (CLEAR); BACTERIA, URINE AUTO 1+ (NEGATIVE); BILIRUBIN, URINE AUTO NEGATIVE (NEGATIVE); BLOOD, URINE BLOOD NEGATIVE (NEGATIVE); COLOR, URINE YELLOW (YELLOW); GLUCOSE, URINE (UA) AUTO 1+ mg/dL (NEGATIVE); KETONE, URINE AUTO NEGATIVE (NEGATIVE); LEUKOCYTE ESTERASE, URINE AUTO 2+ (NEGATIVE); MUCUS, URINE SMALL (NEGATIVE); NITRITE, URINE AUTO NEGATIVE (NEGATIVE); PROTEIN, URINE AUTO 2+ mg/dL (NEGATIVE); RBC, URINE AUTO 7 /HPF (0-3); SPECIFIC GRAVITY URINE AUTO 1.012 (1.002-1.035); SQUAMOUS EPITHELIAL CELL UR AU 1 /HPF (0-6); UROBILINOGEN, URINE AUTO 0.2 mg/dL (0.0-2.0); WBC, URINE AUTO 49 /HPF (0-3)
== END ==
PROVIDERS: ATTEND Internal Medicine
DX: N18.3 Chronic kidney disease, stage 3 (moderate) (principal); Z87.440 Personal history of urinary (tract) infections

== ENCOUNTER → 2019-08-09 | Outpatient (REF) | payer MEDICARE, MEDICAID ==
[2019-08-09 13:08] LABS: CALCIUM LEVEL 8.6 MG/DL (8.8-10.2); CREATININE FOR GFR 1.58 MG/DL (0.55-1.30); GLOMERULAR FILTRATION RATE 34.2 (>39); POTASSIUM SERUM 4.8 MEQ/L (3.5-5.1)
== END ==
PROVIDERS: ATTEND Internal Medicine
DX: I50.9 Heart failure, unspecified (principal)

== ENCOUNTER → 2019-08-21 | Outpatient (REF) | payer MEDICAID, MEDICARE ==
[2019-08-21 17:37] LABS: HEMATOCRIT 31.5 % (36.0-47.0); MEAN CORPUSCULAR HEMOGLOBIN 30.3 pg (27.0-33.0); MEAN CORPUSCULAR HGB CONC 31.7 g/dl (32.0-36.5); MEAN CORPUSCULAR VOLUME 95.5 fl (80.0-96.0); PLATELET COUNT, AUTOMATED 143 10^3/uL (150-450); WHITE BLOOD COUNT 7.2 10^3/uL (4.0-10.0)
[2019-08-21 18:02] LABS: CALCIUM LEVEL 8.3 MG/DL (8.8-10.2); CREATININE FOR GFR 2.07 MG/DL (0.55-1.30); GLOMERULAR FILTRATION RATE 25.1 (>39); POTASSIUM SERUM 4.7 MEQ/L (3.5-5.1)
== END ==
PROVIDERS: ATTEND Internal Medicine
DX: N18.9 Chronic kidney disease, unspecified (principal)

== ENCOUNTER → 2019-08-25 | Outpatient (REF) | payer MEDICARE, MEDICAID ==
--- NOTE | 2019-08-25 15:51 | REP ---
LEFT RIB SERIES: Four views of the left ribs are performed. There are old fractures noted of the anterolateral left 4th through 9th ribs. No definite acute fracture or bone lesion is seen. An accompanying view of the chest demonstrates mild cardiomegaly with left basilar fibrotic change. IMPRESSION: Multiple old left rib fractures. No acute fracture is seen radiographically. Electronically Signed by Enoc Olvera MD 08/25/2019 04:24 P
== END ==
LOC: M RAD 14:47
PROVIDERS: ATTEND Internal Medicine
DX: R07.81 Pleurodynia (principal)

== ENCOUNTER → 2019-09-11 | Outpatient (REF) | PROVIDERS: ATTEND Internal Medicine | DX: Z03.818 Encounter for observation for suspected exposure to other biological agents ruled out (principal) ==

== ENCOUNTER → 2019-09-21 | Outpatient (REF) ==
[~2019-09-21] MED LIST changes: +EUCE1CRE2 EX; +GLUC1KIT IM; +SPIR-10 PO
[2019-09-21 11:26] LABS: AMORPHOUS SEDIMENT SMALL (NEGATIVE); APPEARANCE, URINE CLOUDY (CLEAR); BACTERIA, URINE AUTO 1+ (NEGATIVE); BILIRUBIN, URINE AUTO NEGATIVE (NEGATIVE); BLOOD, URINE BLOOD NEGATIVE (NEGATIVE); COLOR, URINE YELLOW (YELLOW); GLUCOSE, URINE (UA) AUTO 1+ mg/dL (NEGATIVE); KETONE, URINE AUTO NEGATIVE (NEGATIVE); LEUKOCYTE ESTERASE, URINE AUTO 3+ (NEGATIVE); MUCUS, URINE SMALL (NEGATIVE); NITRITE, URINE AUTO NEGATIVE (NEGATIVE); PROTEIN, URINE AUTO 2+ mg/dL (NEGATIVE); RBC, URINE AUTO 7 /HPF (0-3); SPECIFIC GRAVITY URINE AUTO 1.012 (1.002-1.035); SQUAMOUS EPITHELIAL CELL UR AU 4 /HPF (0-6); UROBILINOGEN, URINE AUTO 0.2 mg/dL (0.0-2.0); WBC, URINE AUTO 103 /HPF (0-3)
== END ==
PROVIDERS: ATTEND Internal Medicine
DX: N18.9 Chronic kidney disease, unspecified (principal)

== ENCOUNTER → 2019-09-23 | Outpatient (REF) | PROVIDERS: ATTEND Internal Medicine | DX: Z03.818 Encounter for observation for suspected exposure to other biological agents ruled out (principal) ==

== ENCOUNTER 2019-09-26 08:55 | Day surgery (SDC) | payer MEDICARE, OTHER, MEDICAID ==
[~2019-09-26] VITALS: Ht 152.4 cm; Wt 101.2 kg
[~2019-09-26 08:55] MED LIST changes: +NS 1,000 ML IV SCH
[2019-09-26] MEDS ORDERED: LIDOCAINE 2% 100MG/5ML SDV (FOR ANES.) As Ordered ONE (10:33)
[2019-09-26] MEDS ORDERED: propofoL 500 MG/50 ML VIAL As Ordered ONE (10:33)
--- NOTE | 2019-09-26 11:15 | ROOR ---
Patient Name: Derrick Rodriguez Procedure Date: 09/26/2019 10:20 AM Date of : 1945 Age: 74 Room: [facility] Gender: Female Note Status: Finalized Procedure: Colonoscopy Indications: High risk colon cancer surveillance: Personal history of colonic polyps Providers: Domenic Sandhu MD Referring MD: Karla Dupont DO Requesting Provider: Medicines: Monitored Anesthesia Care Complications: No immediate complications. Procedure: Pre-Anesthesia Assessment: - Prior to the procedure, a History and Physical was performed, and patient medications and allergies were reviewed. The patient is competent. The risks and benefits of the procedure and the sedation options and risks were discussed with the patient. All questions were answered and informed consent was obtained. Patient identification and proposed procedure were verified by the physician, the nurse and the anesthesiologist in the procedure room. Mental Status Examination: alert and oriented. Airway Examination: normal oropharyngeal airway and neck mobility. Respiratory Examination: clear to auscultation. CV Examination: normal. Prophylactic Antibiotics: The patient does not require prophylactic antibiotics. Prior Anticoagulants: The patient has taken Plavix (clopidogrel), last dose was 7 days prior to procedure. ASA Grade Assessment: III - A patient with severe systemic disease. After reviewing the risks and benefits, the patient was deemed in satisfactory condition to undergo the procedure. The anesthesia plan was to use monitored anesthesia care (MAC). Immediately prior to administration of medications, the patient was re-assessed for adequacy to receive sedatives. The heart rate, respiratory rate, oxygen saturations, blood pressure, adequacy of pulmonary ventilation, and response to care were monitored throughout the procedure. The physical status of the patient was re-assessed after the procedure. The Colonoscope was introduced through the anus and advanced to the cecum, identified by appendiceal orifice and ileocecal valve. The colonoscopy was performed without difficulty. The patient tolerated the procedure well. The quality of the bowel preparation was good. The terminal ileum, ileocecal valve, appendiceal orifice, and rectum were photographed. Scope insertion time was 4 minutes. Scope withdrawal time was 10 minutes. The total duration of the procedure was 14 minutes. Findings: The perianal and digital rectal examinations were normal. Two sessile polyps were found in the ascending colon. The polyps were 7 to 10 mm in size. These polyps were removed with a hot snare. Resection and retrieval were complete. Verification of patient identification for the specimen was done by the physician and nurse using the patient's name, date and medical record number. Estimated blood loss was minimal. A 8 mm polyp was found in the descending colon. The polyp was sessile. The polyp was removed with a hot snare. Resection and retrieval were complete. Two sessile polyps were found in the rectum. The polyps were 3 to 4 mm in size. These polyps were removed with a hot snare. Resection and retrieval were complete. Many medium-mouthed diverticula were found in the sigmoid colon. There was no evidence of diverticular bleeding. Non-bleeding external and internal hemorrhoids were found during retroflexion. The hemorrhoids were medium-sized. Impression: - Two 7 to 10 mm polyps in the ascending colon, removed with a hot snare. Resected and retrieved. - One 8 mm polyp in the descending colon, removed with a hot snare. Resected and retrieved. - Two 3 to 4 mm polyps in the rectum, removed with a hot snare. Resected and retrieved. - Moderate diverticulosis in the sigmoid colon. There was no evidence of diverticular bleeding. - Non-bleeding external and internal hemorrhoids. Recommendation: - Patient has a contact number available for emergencies. The signs and symptoms of potential delayed complications were discussed with the patient. Return to normal activities tomorrow. Written discharge instructions were provided to the patient. - High fiber diet. - Continue present medications. - Await pathology results. - Repeat colonoscopy in 1 year for surveillance based on pathology results and due to personal history of colon polyps in past Colonoscopy. - Telephone GI clinic for pathology results in 2 weeks. - Return to primary care physician. Domenic Sandhu MD Domenic Sandhu MD 09/26/2019 11:15:14 AM Electronically signed by Domenic Sandhu MD Number of Addenda: 0 Note Initiated On: 09/26/2019 10:20 AM Estimated Blood Loss: Estimated blood loss was minimal.
[2019-09-26 11:33] VITALS: BP 112/62
== END 2019-09-26 11:35 | disposition home or self-care (01) ==
LOC: M OPP 08:55
PROVIDERS: ATTEND Internal Medicine Gastroenterology
DX: D12.2 Benign neoplasm of ascending colon (principal); D12.4 Benign neoplasm of descending colon; K62.1 Rectal polyp; K64.8 Other hemorrhoids; K57.30 Diverticulosis of large intestine without perforation or abscess without bleeding; Z86.010 Personal history of colon polyps; Z09 Encounter for follow-up examination after completed treatment for conditions other than malignant neoplasm; N18.3 Chronic kidney disease, stage 3 (moderate); Z79.4 Long term (current) use of insulin; Z79.82 Long term (current) use of aspirin; Z79.899 Other long term (current) drug therapy; Z91.011 Allergy to milk products; Z91.040 Latex allergy status

== ENCOUNTER → 2019-10-09 | Outpatient (REF) ==
[~2019-10-09] MED LIST changes: -NS 1,000 ML IV SCH
[2019-10-09 13:38] LABS: APPEARANCE, URINE HAZY (CLEAR); BACTERIA, URINE AUTO NEGATIVE (NEGATIVE); BILIRUBIN, URINE AUTO NEGATIVE (NEGATIVE); BLOOD, URINE BLOOD NEGATIVE (NEGATIVE); COLOR, URINE YELLOW (YELLOW); GLUCOSE, URINE (UA) AUTO 2+ mg/dL (NEGATIVE); KETONE, URINE AUTO NEGATIVE (NEGATIVE); LEUKOCYTE ESTERASE, URINE AUTO 2+ (NEGATIVE); MUCUS, URINE SMALL (NEGATIVE); NITRITE, URINE AUTO NEGATIVE (NEGATIVE); PROTEIN, URINE AUTO 2+ mg/dL (NEGATIVE); RBC, URINE AUTO 7 /HPF (0-3); SPECIFIC GRAVITY URINE AUTO 1.012 (1.002-1.035); SQUAMOUS EPITHELIAL CELL UR AU 1 /HPF (0-6); UROBILINOGEN, URINE AUTO 0.2 mg/dL (0.0-2.0); WBC, URINE AUTO 41 /HPF (0-3)
[2019-10-09 13:57] LABS: HEMATOCRIT 32.4 % (36.0-47.0); HEMOGLOBIN 10.1 g/dl (12.0-15.5); MEAN CORPUSCULAR HEMOGLOBIN 30.1 pg (27.0-33.0); MEAN CORPUSCULAR HGB CONC 31.2 g/dl (32.0-36.5); MEAN CORPUSCULAR VOLUME 96.7 fl (80.0-96.0); PLATELET COUNT, AUTOMATED 145 10^3/uL (150-450); RED BLOOD COUNT 3.35 10^6/uL (4.00-5.40); WHITE BLOOD COUNT 8.4 10^3/uL (4.0-10.0)
[2019-10-09 14:25] LABS: ALBUMIN 2.9 GM/DL (3.2-5.2); CREATININE FOR GFR 2.05 MG/DL (0.55-1.30); GLOMERULAR FILTRATION RATE 25.3 (>39); MAGNESIUM LEVEL 2.4 MG/DL (1.8-2.4); PHOSPHORUS LEVEL 3.6 MG/DL (2.5-4.9); POTASSIUM SERUM 4.4 MEQ/L (3.5-5.1)
== END ==
PROVIDERS: ATTEND Internal Medicine
DX: N18.9 Chronic kidney disease, unspecified (principal)

== ENCOUNTER → 2019-10-13 | Outpatient (REF) ==
[2019-10-13 10:00] LABS: HEMATOCRIT 31.8 % (36.0-47.0); HEMOGLOBIN 9.9 g/dl (12.0-15.5); MEAN CORPUSCULAR HEMOGLOBIN 30.1 pg (27.0-33.0); MEAN CORPUSCULAR HGB CONC 31.1 g/dl (32.0-36.5); MEAN CORPUSCULAR VOLUME 96.7 fl (80.0-96.0); PLATELET COUNT, AUTOMATED 138 10^3/uL (150-450); RED BLOOD COUNT 3.29 10^6/uL (4.00-5.40); WHITE BLOOD COUNT 6.8 10^3/uL (4.0-10.0)
[2019-10-13 10:23] LABS: CALCIUM LEVEL 8.4 MG/DL (8.8-10.2); CREATININE FOR GFR 1.99 MG/DL (0.55-1.30); GLOMERULAR FILTRATION RATE 26.2 (>39); POTASSIUM SERUM 4.4 MEQ/L (3.5-5.1)
== END ==
PROVIDERS: ATTEND Internal Medicine
DX: I50.9 Heart failure, unspecified (principal)

== ENCOUNTER → 2019-10-17 | Outpatient (REF) ==
[2019-10-17 09:35] LABS: ALBUMIN 2.8 GM/DL (3.2-5.2); GLOMERULAR FILTRATION RATE 26.1 (>39); PHOSPHORUS LEVEL 4.8 MG/DL (2.5-4.9)
== END ==
PROVIDERS: ATTEND Internal Medicine
DX: N18.3 Chronic kidney disease, stage 3 (moderate) (principal)

== ENCOUNTER → 2019-10-19 | Outpatient (REF) ==
[~2019-10-19] MED LIST changes: +ACET-683 PO; -AMLO10TA5 PO; +AMLO1TAB24 PO; +AMLO1TAB25 PO; -AMLO5TAB6 PO; +ASPE16CR TOP; -ASPI81TA85 PO; +ASPI81TA86 PO; +AUGM500T34 PO; +BACITAB PO; +BISA10SU4 PR; +CEFD300CAP PO; +CEPH500C PO; +CYAN500T14 PO; -CYAN500T8 PO; +ENEMENE PR; +EUCECRE8 TOP; +FLUO10CA16 PO; +HYDR-3911 PO; +ISOS20TAB PO; -LISI-538 PO; +LISI20TA33 PO; -LISI40TA PO; +LISI40TA4 PO; +MEGACE; +MEGE40SU5 PO; -MELA5TAB31 PO; +MELA5TAB36 PO; +NEPR1LIQ2 PO; +ONDA8TAB10 PO; +PANT40TA29 PO; +POTA1TAB14 PO; +POTA20TA6 PO; +PROTPAK PO; +SIME80CH6 PO; +SUCR1SS PO
--- NOTE | 2019-10-19 15:16 | REPPI ---
Portable chest x-ray: Single view. History: Wheezing. Comparison chest x-ray: March 10, 2019. Findings: There is a linear fibrosis in the left base. Exam quality is inhibited by patient body habitus. Mild cardiac enlargement is observed. Pulmonary vasculature is slightly cephalized. No acute infiltrate is seen. Impression: Linear fibrosis left base. Mildly enlarged heart. No acute infiltrate. Electronically Signed by Hima Madsen MD 10/19/2019 03:08 P
== END ==
PROVIDERS: ATTEND Internal Medicine
DX: R06.2 Wheezing (principal)

== ENCOUNTER → 2019-11-20 | Outpatient (REF) | payer MEDICARE, OTHER, MEDICAID ==
[~2019-11-20] MED LIST changes: -ASPE16CR TOP; -AUGM500T34 PO; -BACITAB PO; -CEFD300CAP PO; -CYAN500T14 PO; +CYAN500T8 PO; -FLUO10CA16 PO; +LISI-538 PO; -LISI20TA33 PO; +LISI40TA PO; -LISI40TA4 PO; -MEGACE; -MEGE40SU5 PO; -NEPR1LIQ2 PO; -PANT40TA29 PO; -PROTPAK PO; +SIME40TA PO; -SIME80CH6 PO
[2020-01-05 08:39] LABS: HEMATOCRIT 31.2 % (36.0-47.0); HEMOGLOBIN 9.8 g/dl (12.0-15.5); MEAN CORPUSCULAR HEMOGLOBIN 30.5 pg (27.0-33.0); MEAN CORPUSCULAR HGB CONC 31.4 g/dl (32.0-36.5); MEAN CORPUSCULAR VOLUME 97.2 fl (80.0-96.0); PLATELET COUNT, AUTOMATED 154 10^3/uL (150-450); RED BLOOD COUNT 3.21 10^6/uL (4.00-5.40); WHITE BLOOD COUNT 8.1 10^3/uL (4.0-10.0)
[2020-01-05 09:49] LABS: ALBUMIN 2.8 GM/DL (3.2-5.2); CALCIUM LEVEL 8.7 MG/DL (8.8-10.2); CREATININE FOR GFR 2.12 MG/DL (0.55-1.30); GLOMERULAR FILTRATION RATE 24.4 (>39); MAGNESIUM LEVEL 2.1 MG/DL (1.8-2.4); PHOSPHORUS LEVEL 4.9 MG/DL (2.5-4.9); POTASSIUM SERUM 4.6 MEQ/L (3.5-5.1)
== END ==
PROVIDERS: ATTEND Internal Medicine
DX: N18.9 Chronic kidney disease, unspecified (principal)

== ENCOUNTER → 2019-12-05 | Outpatient (REF) | payer MEDICARE, OTHER, MEDICAID ==
[2020-03-02 07:54] LABS: CALCIUM LEVEL 8.4 MG/DL (8.8-10.2); CREATININE FOR GFR 1.73 MG/DL (0.55-1.30); GLOMERULAR FILTRATION RATE 30.8 (>39); POTASSIUM SERUM 4.7 MEQ/L (3.5-5.1)
== END ==
PROVIDERS: ATTEND Internal Medicine
DX: N18.9 Chronic kidney disease, unspecified (principal)

== ENCOUNTER → 2020-01-17 | Outpatient (REF) | payer MEDICARE, OTHER, MEDICAID ==
[2020-01-17 12:08] LABS: BASO # 0.1 10^3/uL (0.0-0.2); BASO % 0.7 % (0.0-1.0); EOS # 0.2 10^3/uL (0.0-0.5); EOS % 2.2 % (0.0-3.0); HEMATOCRIT 33.5 % (36.0-47.0); HEMOGLOBIN 10.6 g/dl (12.0-15.5); LYMPH # 1.3 10^3/uL (1.5-5.0); LYMPH % 15.3 % (24.0-44.0); MEAN CORPUSCULAR HEMOGLOBIN 30.2 pg (27.0-33.0); MEAN CORPUSCULAR HGB CONC 31.6 g/dl (32.0-36.5); MEAN CORPUSCULAR VOLUME 95.4 fl (80.0-96.0); MONO # 0.7 10^3/uL (0.0-0.8); MONO % 8.6 % (0.0-5.0); NEUTROPHILS # 6.2 10^3/uL (1.5-8.5); NEUTROPHILS % 72.7 % (36.0-66.0); PLATELET COUNT, AUTOMATED 155 10^3/uL (150-450); RED BLOOD COUNT 3.51 10^6/uL (4.00-5.40); WHITE BLOOD COUNT 8.6 10^3/uL (4.0-10.0)
[2020-01-17 12:30] LABS: CALCIUM LEVEL 8.7 MG/DL (8.8-10.2); CREATININE FOR GFR 1.74 MG/DL (0.55-1.30); GLOMERULAR FILTRATION RATE 30.6 (>39); POTASSIUM SERUM 4.7 MEQ/L (3.5-5.1)
[2020-01-17 12:32] LABS: ALBUMIN 2.9 GM/DL (3.2-5.2); CALCIUM LEVEL 8.6 MG/DL (8.8-10.2); CREATININE FOR GFR 1.71 MG/DL (0.55-1.30); GLOMERULAR FILTRATION RATE 31.2 (>39); PHOSPHORUS LEVEL 3.5 MG/DL (2.5-4.9); POTASSIUM SERUM 4.7 MEQ/L (3.5-5.1); URIC ACID 8.9 MG/DL (2.6-6.0)
[2020-01-17 15:29] LABS: APPEARANCE, URINE CLEAR (CLEAR); BACTERIA, URINE AUTO 3+ (NEGATIVE); BILIRUBIN, URINE AUTO NEGATIVE (NEGATIVE); BLOOD, URINE BLOOD NEGATIVE (NEGATIVE); COLOR, URINE YELLOW (YELLOW); GLUCOSE, URINE (UA) AUTO NEGATIVE (NEGATIVE); KETONE, URINE AUTO NEGATIVE (NEGATIVE); LEUKOCYTE ESTERASE, URINE AUTO 2+ (NEGATIVE); MUCUS, URINE SMALL (NEGATIVE); NITRITE, URINE AUTO NEGATIVE (NEGATIVE); PROTEIN, URINE AUTO 1+ mg/dL (NEGATIVE); RBC, URINE AUTO 6 /HPF (0-3); SPECIFIC GRAVITY URINE AUTO 1.008 (1.002-1.035); SQUAMOUS EPITHELIAL CELL UR AU 0 /HPF (0-6); UROBILINOGEN, URINE AUTO 0.2 mg/dL (0.0-2.0); WBC, URINE AUTO 20 /HPF (0-3)
== END ==
PROVIDERS: ATTEND Physician Assistant
DX: N18.9 Chronic kidney disease, unspecified (principal)

== ENCOUNTER → 2020-02-19 | Outpatient (REF) | payer MEDICARE, OTHER, MEDICAID ==
[2020-02-19 10:18] LABS: HEMATOCRIT 33.2 % (36.0-47.0); HEMOGLOBIN 10.5 g/dl (12.0-15.5); MEAN CORPUSCULAR HEMOGLOBIN 29.4 pg (27.0-33.0); MEAN CORPUSCULAR HGB CONC 31.6 g/dl (32.0-36.5); PLATELET COUNT, AUTOMATED 167 10^3/uL (150-450); RED BLOOD COUNT 3.57 10^6/uL (4.00-5.40)
[2020-02-19 10:49] LABS: CALCIUM LEVEL 8.5 MG/DL (8.8-10.2); CREATININE FOR GFR 1.58 MG/DL (0.55-1.30); GLOMERULAR FILTRATION RATE 34.2 (>39); POTASSIUM SERUM 4.3 MEQ/L (3.5-5.1)
== END ==
PROVIDERS: ATTEND Internal Medicine
DX: N18.30 Chronic kidney disease, stage 3 unspecified (principal)

== ENCOUNTER → 2020-02-20 | Outpatient (REF) | payer MEDICARE, OTHER, MEDICAID ==
[2020-02-20 10:29] LABS: HEMATOCRIT 32.9 % (36.0-47.0); MEAN CORPUSCULAR HEMOGLOBIN 28.5 pg (27.0-33.0); MEAN CORPUSCULAR HGB CONC 30.4 g/dl (32.0-36.5); MEAN CORPUSCULAR VOLUME 93.7 fl (80.0-96.0); PLATELET COUNT, AUTOMATED 171 10^3/uL (150-450); RED BLOOD COUNT 3.51 10^6/uL (4.00-5.40); WHITE BLOOD COUNT 12.8 10^3/uL (4.0-10.0)
[2020-02-20 12:40] LABS: ALBUMIN 2.6 GM/DL (3.2-5.2); BILIRUBIN,DIRECT 0.2 MG/DL (0.0-0.2); BILIRUBIN,TOTAL 0.4 MG/DL (0.2-1.0); CALCIUM LEVEL 8.8 MG/DL (8.8-10.2); CREATININE FOR GFR 1.79 MG/DL (0.55-1.30); GLOMERULAR FILTRATION RATE 29.6 (>39); POTASSIUM SERUM 3.9 MEQ/L (3.5-5.1); TOTAL PROTEIN 6.2 GM/DL (6.4-8.2)
[2020-02-20 17:05] LABS: APPEARANCE, URINE HAZY (CLEAR); BACTERIA, URINE AUTO 3+ (NEGATIVE); BILIRUBIN, URINE AUTO NEGATIVE (NEGATIVE); BLOOD, URINE BLOOD 1+ (NEGATIVE); COLOR, URINE YELLOW (YELLOW); GLUCOSE, URINE (UA) AUTO 2+ mg/dL (NEGATIVE); KETONE, URINE AUTO NEGATIVE (NEGATIVE); LEUKOCYTE ESTERASE, URINE AUTO TRACE (NEGATIVE); MUCUS, URINE SMALL (NEGATIVE); NITRITE, URINE AUTO NEGATIVE (NEGATIVE); PROTEIN, URINE AUTO 2+ mg/dL (NEGATIVE); RBC, URINE AUTO 11 /HPF (0-3); SQUAMOUS EPITHELIAL CELL UR AU 1 /HPF (0-6); UROBILINOGEN, URINE AUTO 0.2 mg/dL (0.0-2.0); WBC, URINE AUTO 7 /HPF (0-3)
== END ==
PROVIDERS: ATTEND Internal Medicine
DX: D72.829 Elevated white blood cell count, unspecified (principal); R10.9 Unspecified abdominal pain

== ENCOUNTER 2020-02-21 14:16 | Emergency (ER) | payer MEDICARE, MEDICAID ==
[~2020-02-21] VITALS: Ht 152.4 cm; Wt 103.4 kg
[~2020-02-21 14:16] MED LIST changes: -ACET-683 PO; -BISA10SU4 PR; -CEPH500C PO; -ENEMENE PR; -EUCECRE8 TOP; -HYDR-3911 PO; -ISOS20TAB PO; -ONDA8TAB10 PO; -POTA1TAB14 PO; -POTA20TA6 PO; -SIME40TA PO; -SUCR1SS PO
[2020-02-21] MEDS ORDERED: ONDANSETRON 4MG/2ML VIAL IV ONE (14:45)
[2020-02-21] MEDS ORDERED: MORPHINE 2 MG/ML 1ML VIAL (J2270) IV ONE (14:45)
--- NOTE | 2020-02-21 15:16 | REP ---
INDICATION: severe mid abdominal pain COMPARISON: 11/26/2018. TECHNIQUE: CT Scan of the abdomen and pelvis was performed without intravenous contrast. Sagittal and coronal reconstruction images performed. FINDINGS: Lung bases: Unremarkable. Liver: Grossly unremarkable. Gallbladder: Unremarkable. Spleen: There is a stable low-density lesion in the posterior spleen 1.7 cm in diameter. Adrenals: There is stable adrenal gland thickening bilaterally. Pancreas: Grossly unremarkable.. Kidneys: No hydronephrosis or nephrolithiasis. Ureters demonstrate no dilatation or calculus. Small and large bowel: Grossly unremarkable.. Free fluid: None. Abdominal aorta: No aneurysm. Are moderate diffuse atherosclerotic calcifications. Adenopathy: None. Appendix: Appendectomy. Osseous structures: There are mild degenerative changes of the spine without compression fracture. Pelvis: No mass. No bladder calculus seen. There is a small umbilical hernia containing fat. Prior hysterectomy. Prior appendectomy. IMPRESSION: No acute abnormalities detected. No free air or free fluid. No bowel obstruction or inflammation. No renal or ureteral calculus and no hydroureteronephrosis. <Electronically signed by Enoc Olvera > 02/21/20 [id number]
[2020-02-21] MEDS ORDERED: **hydrALAZINE** 50 MG TAB PO ONE (16:00)
[2020-02-21] MEDS ORDERED: GI COCKTAIL 50ML BTL(HYOSCYAMINE/MAALOX/LIDOCAINE VISCOUS)(1:3:1) PO ONE (16:00)
[2020-02-21 16:07] LABS: ALBUMIN 2.5 GM/DL (3.2-5.2); ALT/SGPT 19 U/L (12-78); BILIRUBIN,DIRECT 0.1 MG/DL (0.0-0.2); BILIRUBIN,TOTAL 0.4 MG/DL (0.2-1.0); CK-MB VALUE MASS 1.4 NG/ML (<3.6); CPK CREATINE PHOSPHOKINASE 73 U/L (26-192); MB/CK RELATIVE INDEX 1.92 (< OR =4); TOTAL PROTEIN 6.1 GM/DL (6.4-8.2); TROPONIN I < 0.02 NG/ML (< 0.10)
[2020-02-21 16:40] VITALS: BP 220/86
[2020-02-21] MEDS ORDERED: POTA20TA6 PO (16:43)
[2020-02-21] MEDS ORDERED: EUCECRE8 TOP (16:43)
[2020-02-21] MEDS ORDERED: ENEMENE PR (16:43)
[2020-02-21] MEDS ORDERED: POTA1TAB14 PO (16:43)
[2020-02-21] MEDS ORDERED: BISA10SU4 PR (16:43)
[2020-02-21] MEDS ORDERED: ACET-683 PO (16:43)
[2020-02-21] MEDS ORDERED: ISOS20TAB PO (16:43)
[2020-02-21] MEDS ORDERED: ONDA8TAB10 PO (16:43)
[2020-02-21] MEDS ORDERED: CEPH500C PO (16:43)
[2020-02-21] MEDS ORDERED: HYDR-3911 PO (16:43)
[2020-02-21] MEDS ORDERED: SIME40TA PO (17:04)
[2020-02-21] MEDS ORDERED: SUCR1SS PO (17:04)
[2020-02-21 18:30] VITALS: BP 171/59
--- NOTE | 2020-02-22 08:03 | ECGEPIP ---
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
== END 2020-02-21 18:54 | disposition home or self-care (01) ==
LOC: M ED 14:16
DX: I13.0 Hypertensive heart and chronic kidney disease with heart failure and stage 1 through stage 4 chronic kidney disease, or unspecified chronic kidney disease (principal); N18.30 Chronic kidney disease, stage 3 unspecified; R10.9 Unspecified abdominal pain; D72.829 Elevated white blood cell count, unspecified; I73.9 Peripheral vascular disease, unspecified; Z79.4 Long term (current) use of insulin; Z90.89 Acquired absence of other organs; Z98.890 Other specified postprocedural states; E11.51 Type 2 diabetes mellitus with diabetic peripheral angiopathy without gangrene
CPT/HCPCS: 74176; 80048; 80076; 82550; 82553; 83605; 84484; 85027; 93005; 93041; 94760; 96374; 96375; 99285; J2270; J2405

== ENCOUNTER → 2020-02-21 | Outpatient (REF) | payer MEDICARE, OTHER, MEDICAID ==
[2020-02-21 10:12] LABS: HEMOGLOBIN 10.5 g/dl (12.0-15.5); MEAN CORPUSCULAR HEMOGLOBIN 29.2 pg (27.0-33.0); MEAN CORPUSCULAR HGB CONC 31.8 g/dl (32.0-36.5); MEAN CORPUSCULAR VOLUME 91.9 fl (80.0-96.0); PLATELET COUNT, AUTOMATED 172 10^3/uL (150-450); RED BLOOD COUNT 3.59 10^6/uL (4.00-5.40); WHITE BLOOD COUNT 12.1 10^3/uL (4.0-10.0)
[2020-02-21 10:56] LABS: CALCIUM LEVEL 8.6 MG/DL (8.8-10.2); CREATININE FOR GFR 1.99 MG/DL (0.55-1.30); GLOMERULAR FILTRATION RATE 26.2 (>39); POTASSIUM SERUM 3.1 MEQ/L (3.5-5.1)
== END ==
PROVIDERS: ATTEND Internal Medicine
DX: D72.829 Elevated white blood cell count, unspecified (principal)

== ENCOUNTER → 2020-02-22 | Outpatient (REF) | payer MEDICARE, OTHER, MEDICAID ==
[~2020-02-22] MED LIST changes: +ACET-683 PO; +BISA10SU4 PR; +CEPH500C PO; +ENEMENE PR; +EUCECRE8 TOP; +HYDR-3911 PO; +ISOS20TAB PO; +ONDA8TAB10 PO; +POTA1TAB14 PO; +POTA20TA6 PO; +SIME40TA PO; +SUCR1SS PO
[2020-02-22 09:47] LABS: HEMATOCRIT 32.8 % (36.0-47.0); HEMOGLOBIN 10.3 g/dl (12.0-15.5); MEAN CORPUSCULAR HGB CONC 31.4 g/dl (32.0-36.5); MEAN CORPUSCULAR VOLUME 92.4 fl (80.0-96.0); PLATELET COUNT, AUTOMATED 171 10^3/uL (150-450); RED BLOOD COUNT 3.55 10^6/uL (4.00-5.40); WHITE BLOOD COUNT 8.7 10^3/uL (4.0-10.0)
[2020-02-22 10:06] LABS: CALCIUM LEVEL 8.1 MG/DL (8.8-10.2); CREATININE FOR GFR 2.42 MG/DL (0.55-1.30); GLOMERULAR FILTRATION RATE 20.9 (>39); POTASSIUM SERUM 3.4 MEQ/L (3.5-5.1)
== END ==
PROVIDERS: ATTEND Internal Medicine
DX: R10.9 Unspecified abdominal pain (principal); N17.9 Acute kidney failure, unspecified

== ENCOUNTER → 2020-02-23 | Outpatient (REF) | payer MEDICARE, OTHER, MEDICAID ==
[2020-02-23 10:31] LABS: HEMATOCRIT 31.4 % (36.0-47.0); HEMOGLOBIN 9.6 g/dl (12.0-15.5); MEAN CORPUSCULAR HEMOGLOBIN 28.2 pg (27.0-33.0); MEAN CORPUSCULAR HGB CONC 30.6 g/dl (32.0-36.5); MEAN CORPUSCULAR VOLUME 92.4 fl (80.0-96.0); PLATELET COUNT, AUTOMATED 185 10^3/uL (150-450); WHITE BLOOD COUNT 10.8 10^3/uL (4.0-10.0)
[2020-02-23 10:57] LABS: CALCIUM LEVEL 7.8 MG/DL (8.8-10.2); CREATININE FOR GFR 2.49 MG/DL (0.55-1.30); GLOMERULAR FILTRATION RATE 20.2 (>39); POTASSIUM SERUM 3.6 MEQ/L (3.5-5.1)
== END ==
PROVIDERS: ATTEND Internal Medicine
DX: N18.9 Chronic kidney disease, unspecified (principal)

== ENCOUNTER → 2020-02-24 | Outpatient (REF) | payer MEDICARE, OTHER, MEDICAID ==
[2020-02-24 12:42] LABS: CALCIUM LEVEL 8.4 MG/DL (8.8-10.2); CREATININE FOR GFR 1.83 MG/DL (0.55-1.30); GLOMERULAR FILTRATION RATE 28.9 (>39); POTASSIUM SERUM 3.6 MEQ/L (3.5-5.1)
== END ==
PROVIDERS: ATTEND Internal Medicine
DX: E86.0 Dehydration (principal)

== ENCOUNTER → 2020-03-01 | Outpatient (REF) ==
[2020-03-01 13:50] LABS: HEMATOCRIT 26.8 % (36.0-47.0); HEMOGLOBIN 8.3 g/dl (12.0-15.5); MEAN CORPUSCULAR HEMOGLOBIN 28.4 pg (27.0-33.0); MEAN CORPUSCULAR VOLUME 91.8 fl (80.0-96.0); PLATELET COUNT, AUTOMATED 247 10^3/uL (150-450); RED BLOOD COUNT 2.92 10^6/uL (4.00-5.40); WHITE BLOOD COUNT 10.8 10^3/uL (4.0-10.0)
[2020-03-01 14:21] LABS: CALCIUM LEVEL 8.5 MG/DL (8.8-10.2); CREATININE FOR GFR 2.71 MG/DL (0.55-1.30); GLOMERULAR FILTRATION RATE 18.4 (>39)
== END ==
PROVIDERS: ATTEND Internal Medicine
DX: L03.115 Cellulitis of right lower limb (principal)

== ENCOUNTER → 2020-03-02 | Outpatient (REF) | payer MEDICARE, MEDICAID ==
[2020-03-02 15:57] LABS: CALCIUM LEVEL 8.1 MG/DL (8.8-10.2); CREATININE FOR GFR 2.04 MG/DL (0.55-1.30); GLOMERULAR FILTRATION RATE 25.5 (>39); PERCENT SATURATION 14.1 % (13.2-45.0); POTASSIUM SERUM 3.1 MEQ/L (3.5-5.1)
== END ==
PROVIDERS: ATTEND Internal Medicine
DX: L03.115 Cellulitis of right lower limb (principal)

== ENCOUNTER → 2020-03-04 | Outpatient (REF) ==
[2020-03-04 11:40] LABS: CREATININE FOR GFR 1.78 MG/DL (0.55-1.30); GLOMERULAR FILTRATION RATE 29.8 (>39); POTASSIUM SERUM 3.9 MEQ/L (3.5-5.1)
[2020-03-04 11:41] LABS: CALCIUM LEVEL 9.2 MG/DL (8.8-10.2)
--- NOTE | 2020-03-04 15:13 | REPPI ---
INDICATION: R ANKLE SWELLING. COMPARISON: Comparison right ankle radiographs are from August 22, 2016. That prior study showed a comminuted impacted fracture of the calcaneus with extensive chronic change about the ankle lateral aspect.. TECHNIQUE: Three views are presented. The lateral view is less than optimally positioned rather rotated. FINDINGS: There is diffuse osteopenia. Vascular calcifications noted. Diffuse moderate to marked periarticular ankle swelling is seen. No soft tissue gas is observed. There is considerable deformity of the and collapse of the hindfoot with overlap. There appears to be a chronic linear defect through the distal tip of the talus although lack of a true lateral view hampers visualization of this. There is midfoot osteoarthritic changes well. Question neuropathic joint disease. No definite acute fracture is seen. Ankle mortise is intact. There is old chronic hypertrophy of the distal fibula along its medial and lateral aspects. No distal tibial fracture is seen. IMPRESSION: Extensive old posttraumatic and degenerative collapse of the hindfoot. This is less than optimally seen. 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 Question neuropathic joint. Marked periarticular soft tissue swelling. Vascular calcification and diffuse osteopenia. No definite acute fracture seen. <Electronically signed by Wil Madsen > 03/04/20 [id number]
== END ==
PROVIDERS: ATTEND Internal Medicine
DX: I50.9 Heart failure, unspecified (principal)

== ENCOUNTER → 2020-03-07 | Outpatient (REF) | PROVIDERS: ATTEND Internal Medicine | DX: Z20.828 Contact with and (suspected) exposure to other viral communicable diseases (principal) ==

== ENCOUNTER → 2020-03-12 | Outpatient (REF) ==
[2020-03-12 11:55] LABS: HEMATOCRIT 28.1 % (36.0-47.0); HEMOGLOBIN 8.4 g/dl (12.0-15.5); MEAN CORPUSCULAR HGB CONC 29.9 g/dl (32.0-36.5); MEAN CORPUSCULAR VOLUME 93.7 fl (80.0-96.0); PLATELET COUNT, AUTOMATED 272 10^3/uL (150-450); WHITE BLOOD COUNT 8.2 10^3/uL (4.0-10.0)
[2020-03-12 13:01] LABS: CALCIUM LEVEL 9.5 MG/DL (8.8-10.2); CREATININE FOR GFR 1.71 MG/DL (0.55-1.30); GLOMERULAR FILTRATION RATE 31.2 (>39); POTASSIUM SERUM 3.7 MEQ/L (3.5-5.1)
[2020-03-12 13:04] LABS: ALBUMIN 1.7 GM/DL (3.2-5.2); ALT/SGPT 16 U/L (12-78); BILIRUBIN,DIRECT < 0.1 MG/DL (0.0-0.2); BILIRUBIN,TOTAL 0.2 MG/DL (0.2-1.0); MAGNESIUM LEVEL 2.2 MG/DL (1.8-2.4); THYROID STIMULATING HORMONE 0.912 uIU/ML (0.358-3.740); TOTAL PROTEIN 5.6 GM/DL (6.4-8.2)
== END ==
PROVIDERS: ATTEND Internal Medicine
DX: N18.9 Chronic kidney disease, unspecified (principal)

== ENCOUNTER → 2020-03-14 | Outpatient (REF) | payer MEDICARE, MEDICAID ==
[~2020-03-14] MED LIST changes: +ASPE16CR TOP; +AUGM500T34 PO; +BACITAB PO; +CEFD300CAP PO; +CYAN500T14 PO; -CYAN500T8 PO; +FLUO10CA16 PO; +JUVEPOW3 PO; -LISI-538 PO; +LISI20TA33 PO; -LISI40TA PO; +LISI40TA4 PO; +MEGACE; +MEGE40SU5 PO; +NEPR1LIQ2 PO; +ONDA-83 PO; +PANT40TA29 PO; +PROTPAK PO; -SIME40TA PO; +SIME80CH6 PO; +THERTAB52 PO
== END ==
LOC: EDSTATUS 04-22 12:25
PROVIDERS: ATTEND Internal Medicine
DX: Z20.828 Contact with and (suspected) exposure to other viral communicable diseases (principal)

== ENCOUNTER → 2020-03-20 | Outpatient (REF) | payer MEDICARE, MEDICAID | PROVIDERS: ATTEND Internal Medicine | DX: Z20.828 Contact with and (suspected) exposure to other viral communicable diseases (principal) ==

== ENCOUNTER → 2020-03-20 | Outpatient (REF) | payer MEDICARE, MEDICAID ==
[~2020-03-20] MED LIST changes: -AUGM500T34 PO; -BACITAB PO; -CEFD300CAP PO; -JUVEPOW3 PO; +LISI-538 PO; -LISI20TA33 PO; +LISI40TA PO; -LISI40TA4 PO; -ONDA-83 PO; +SIME40TA PO; -SIME80CH6 PO; -THERTAB52 PO
[2020-03-20 10:41] LABS: HEMATOCRIT 27.1 % (36.0-47.0); HEMOGLOBIN 8.1 g/dl (12.0-15.5); MEAN CORPUSCULAR HEMOGLOBIN 26.8 pg (27.0-33.0); MEAN CORPUSCULAR HGB CONC 29.9 g/dl (32.0-36.5); MEAN CORPUSCULAR VOLUME 89.7 fl (80.0-96.0); PLATELET COUNT, AUTOMATED 254 10^3/uL (150-450); RED BLOOD COUNT 3.02 10^6/uL (4.00-5.40); WHITE BLOOD COUNT 9.5 10^3/uL (4.0-10.0)
[2020-03-20 11:07] LABS: ALBUMIN 1.6 GM/DL (3.2-5.2); CALCIUM LEVEL 9.4 MG/DL (8.8-10.2); CREATININE FOR GFR 1.73 MG/DL (0.55-1.30); GLOMERULAR FILTRATION RATE 30.8 (>39); MAGNESIUM LEVEL 2.3 MG/DL (1.8-2.4); POTASSIUM SERUM 3.5 MEQ/L (3.5-5.1)
[2020-03-20 11:18] LABS: PTH INTACT 24.1 PG/ML (18.5-88.0)
== END ==
PROVIDERS: ATTEND Internal Medicine
DX: N18.9 Chronic kidney disease, unspecified (principal)

== ENCOUNTER → 2020-03-22 | Outpatient (REF) | payer MEDICARE, MEDICAID ==
[~2020-03-22] MED LIST changes: -ASPE16CR TOP; -CYAN500T14 PO; +CYAN500T8 PO; -FLUO10CA16 PO; -MEGACE; -MEGE40SU5 PO; -NEPR1LIQ2 PO; -PANT40TA29 PO; -PROTPAK PO
[2020-03-22 10:04] LABS: CALCIUM LEVEL 8.4 MG/DL (8.8-10.2); CREATININE FOR GFR 1.67 MG/DL (0.55-1.30); GLOMERULAR FILTRATION RATE 32.1 (>39); POTASSIUM SERUM 3.6 MEQ/L (3.5-5.1)
== END ==
PROVIDERS: ATTEND Internal Medicine
DX: M10.9 Gout, unspecified (principal); I11.0 Hypertensive heart disease with heart failure; I50.9 Heart failure, unspecified

== ENCOUNTER 2020-03-27 16:58 | Inpatient (IN) | payer MEDICARE, MEDICAID ==
[~2020-03-27] VITALS: Ht 152.4 cm; Wt 97.5 kg
[~2020-03-27 16:58] MED LIST changes: -ASPE16CR TOP; -FLUO10CA16 PO; -MEGACE; -MEGE40SU5 PO; -NEPR1LIQ2 PO; -PANT40TA29 PO; -PROTPAK PO
[2020-03-27] MEDS ORDERED: MEGACE (17:49)
[2020-03-27] MEDS ORDERED: PROTPAK PO (17:52)
--- NOTE | 2020-03-27 19:02 | REP ---
INDICATION: pain. COMPARISON: Comparison radiographs are from August 22, 2016.. TECHNIQUE: Four views. FINDINGS: There is moderate to marked diffuse soft tissue swelling in the periarticular soft tissues. There appears to be some soft tissue emphysema along the lateral aspect of the ankle adjacent to some bony hypertrophy in the distal fibula. 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 These findings are more pronounced than on the comparison radiograph in 2017. Vascular calcification is observed. There is a diffuse soft tissue swelling about the hindfoot. No definite acute bony erosive change or acute fracture is seen. There is considerable overlap of bony structures in the hindfoot and midfoot. IMPRESSION: Extensive chronic changes most consistent with severe neuropathic arthropathy with collapse of the midfoot and hindfoot articulations. These findings are more pronounced than on the August 22, 2016 prior study. No acute fracture or definite acute erosive changes seen. There is extensive soft tissue swelling. Soft tissue emphysema is suspected laterally. Question ulceration of the skin or gas-forming organism. <Electronically signed by Wil Madsen > 03/27/20 [id number]
[2020-03-27 19:10] LABS: BASO # 0.1 10^3/uL (0.0-0.2); BASO % 0.8 % (0.0-1.0); EOS # 0.1 10^3/uL (0.0-0.5); HEMATOCRIT 26.6 % (36.0-47.0); HEMOGLOBIN 7.7 g/dl (12.0-15.5); LYMPH # 1.5 10^3/uL (1.5-5.0); LYMPH % 17.2 % (24.0-44.0); MEAN CORPUSCULAR HEMOGLOBIN 25.8 pg (27.0-33.0); MEAN CORPUSCULAR HGB CONC 28.9 g/dl (32.0-36.5); MEAN CORPUSCULAR VOLUME 89.3 fl (80.0-96.0); MONO # 0.7 10^3/uL (0.0-0.8); MONO % 8.2 % (0.0-5.0); NEUTROPHILS # 6.3 10^3/uL (1.5-8.5); NEUTROPHILS % 70.7 % (36.0-66.0); PLATELET COUNT, AUTOMATED 249 10^3/uL (150-450); RED BLOOD COUNT 2.98 10^6/uL (4.00-5.40); WHITE BLOOD COUNT 8.9 10^3/uL (4.0-10.0)
[2020-03-27 19:35] LABS: ERYTHROCYTE SEDIMENTATION RATE 125 mm/hr (0-30)
[2020-03-27 20:04] LABS: ALBUMIN 1.8 GM/DL (3.2-5.2); BILIRUBIN,TOTAL 0.2 MG/DL (0.2-1.0); C REACTIVE PROTEIN QUANTITATIV 5.64 MG/DL (0.00-0.30); CALCIUM LEVEL 8.3 MG/DL (8.8-10.2); CREATININE FOR GFR 1.84 MG/DL (0.55-1.30); GLOMERULAR FILTRATION RATE 28.7 (>39); POTASSIUM SERUM 4.7 MEQ/L (3.5-5.1)
[2020-03-27] MEDS: HumaLOG INSULIN (NovoLOG) PER UNIT SC SCH (21:00)
[2020-03-27] MEDS ORDERED: PIPERACILLIN/TAZOBACTAM SOD 3.375 GM in D5W MINI-BAG PLUS 50 ML IV ONE (21:15)
[2020-03-27] MEDS ORDERED: PIPERACILLIN/TAZOBACTAM SOD 3.375 GM in D5W MINI-BAG PLUS 50 ML IV SCH (21:45)
[2020-03-27] MEDS ORDERED: GLUCAGON INJ 1MG VIAL SC PRN (21:45)
[2020-03-27] MEDS ORDERED: GLUCOSE 4GM CHEW TABLET PO PRN (21:45)
[2020-03-27] MEDS ORDERED: ACETAMINOPHEN TAB 650MG DOSE (2X325MG) PO PRN (21:45)
[2020-03-27] MEDS ORDERED: DEXTROSE 50% 50 ML SYRINGE IV PRN (21:45)
[2020-03-27] MEDS ORDERED: MEGE40SU5 PO (21:53)
[2020-03-27] MEDS ORDERED: FLUO10CA16 PO (21:53)
[2020-03-27] MEDS ORDERED: PANT40TA29 PO (21:53)
[2020-03-27] MEDS ORDERED: NEPR1LIQ2 PO (21:53)
[2020-03-27] MEDS ORDERED: LEVE1INJ5 SC (21:53)
[2020-03-27] MEDS ORDERED: TORS20TA2 PO (21:53)
[2020-03-27] MEDS ORDERED: ASPE16CR TOP (21:53)
--- NOTE | 2020-03-27 22:24 | REPVR ---
PROCEDURE INFORMATION: Exam: US Duplex Right Lower Extremity Veins, Limited Exam date and time: 03/27/2020 9:25 PM Age: 74 years old Clinical indication: Swelling (edema) of limb; Lower extremity, right TECHNIQUE: Imaging protocol: Real-time Duplex ultrasound of the Right Lower Extremity with 2-D cosme scale, color Doppler flow and spectral waveform analysis with image documentation. Limited exam was focused on the right lower extremity veins. COMPARISON: US Duplex, Ext LOWER veins, bilat 08/22/2016 12:46 PM FINDINGS: Right deep veins: Unremarkable. The common femoral, femoral, proximal profunda femoral and popliteal veins are patent without thrombus. Normal Doppler waveforms. Normal compressibility and/or augmentation response. Right superficial veins: Unremarkable. Saphenofemoral junction is patent without thrombus. Soft tissues: Unremarkable. IMPRESSION: No evidence of deep vein thrombosis. Electronically signed by: Bushra Alexander On 03/27/2020 22:24:38 PM
--- NOTE | 2020-03-27 22:41 | HPEPDOC ---
[facility] Medical History & Physical Date of Admission Mar 27, 2020 Date of Service: Mar 27, 2020 History and Physical Chief complaint: Presented to the ER with right foot infection History of present illness: Patient is a 74-year-old female with a PMHx of Dementia, HTN, IDDM2, DLP, Suspected CHF, Suspected heart disease?, CKD3, Iron deficiency, Vitamin D deficiency, Depression, GERD, who is presented to the emergency room, sent in by her primary care provider, Dr. Dupont from [facility] for suspected right foot infection. Patient was sent to the emergency room from [facility] for what was reported as failure of outpatient management of cellulitis. Currently madelyn martinez has an ulcer of her right foot. There is no documentation to suggest patient has recently been on antibiotics. Patient is a poor historian and the majority of mentation has been collected from the medical record. I have contacted her son, Doe Rodriguez ([phone]). Currently patient is complaining of right foot and leg tenderness and redness. Patient has a dark, ulceration of the back of her right ankle. Patient denies any chest pain, shortness of breath, palpitations, nausea, vomiting, abdominal pain, diarrhea, or urinary discomfort. Past Medical History: Dementia, HTN, IDDM2, DLP, Suspected CHF, Suspected heart disease?, CKD3, Iron deficiency, Vitamin D deficiency, Depression, GERD Past Surgical History: Right ankle surgery Allergies: See below Medications: See below Family History: - Reviewed and noncontributory Social History: - Denies the use of alcohol, tobacco or illicit drugs - Denies recent travel or sick contacts - Lives at [facility] Review of Systems: 10 point review of systems complete, all negative otherwise stated in HPI Physical exam: - Vitals: BP [170/71], HR [83], RR [16], Sat [97%RA], Temp [98.4F] - General: Lying in bed, No acute distress, Speaking in full sentences, Awake / Alert, Oriented to person - HEENT: NC, AT, PERRLA - CVS: RRR, +S1S2 - Lungs: Fair air entry bilaterally, No appreciable wheezing / rales / rhonchi - Abdomen: Soft, Non-distended, Non-tender - Extremities: No lower extremity edema, No calf tenderness - Neuro: No focal motor or sensory deficit - Skin: R foot and leg with erythema / warmth, no drainage, area of 1-1.5inch necrotic ulceration Labs: See below Imaging: Ankle XR 03/27: Extensive chronic changes most consistent with severe neuropathic arthropathy with collapse of the midfoot and hindfoot articulations. These findings are more pronounced than on the August 22, 2016 prior study. No acute fracture or definite acute erosive changes seen. There is extensive soft tissue swelling. Soft tissue emphysema is suspected laterally. Question ulceration of the skin or gas- forming organism. US R LE 03/27: No evidence of deep vein thrombosis. EKG: See below Assessment and Plan: Cellulitis / Pressure ulcer (Unstagable); rule out Osteomyelitis - Presented emergency room, sent in by her primary care provider for suspected right foot ulcer/osteomyelitis - Hemodynamically stable and afebrile - Physical reveals erythema, warmth and tenderness of her right leg and ankle and a 1-1.5 inches necrotic unstageable ulcer - No leukocytosis / Elevated CRP and ESR - Imaging noted above - Will check lactic acid / Procalcitonin / Blood cultures / MRSA screen - Will check MRI of foot to evaluate for osteomyelitis - Will start Zosyn - Consider podiatry consultation if MRI is positive for osteomyelitis IDDM2 with Hyperglycemia - Will start ISS - Will c/w adjusted dose of long acting insulin Normocytic anemia - History of Iron deficiency - Hg appears to be slightly lower than baseline - No evidence of bleeding - c/w Ferrous sulfate Dementia - Oriented to person and city - Patient lives at [facility] - c/w Megace HTN - BP elevated - Will resume home medications; Carvedilol, Hydralazine, Isosorbide dinitrate, Torsemide, Spironolactone DLP - c/w ASA, Plavix, Carvedilol and Atorvastatin Suspected CHF - Will check ECHO - c/w Torsemide / Spironolactone Suspected heart disease? - c/w ASA and Atorvastatin CKD3 - Baseline creatinine of 1.7-2.0 - Creatinine appears to be at baseline Vitamin D deficiency - c/w Calcitriol Depression - c/w Fluoxetine GERD - c/w Protonix DVT prophylaxis - Will start Heparin Code status: - DNR / DNI Vital Signs Vital Signs Date Time Temp Pulse Resp B/P (MAP) Pulse Ox O2 Delivery O2 Flow Rate FiO2 12/2/20 20:00 83 16 170/71 (104) 97 Room Air 03/27/20 17:29 98.4 Laboratory Data Labs 24H Laboratory Tests 2 03/27/20 18:50: Immature Granulocyte % (Auto) 2.1, Neutrophils (%) (Auto) 70.7H, Lymphocytes (%) (Auto) 17.2L, Monocytes (%) (Auto) 8.2H, Eosinophils (%) (Auto) 1.0, Basophils (%) (Auto) 0.8, Neutrophils # (Auto) 6.3, Lymphocytes # (Auto) 1.5, Monocytes # (Auto) 0.7, Eosinophils # (Auto) 0.1, Basophils # (Auto) 0.1, Nucleated Red Blood Cells % (auto) 0.0, Erythrocyte Sedimentation Rate 125H, Anion Gap 5L, Glomerular Filtration Rate 28.7L, Calcium Level 8.3L, Total Bilirubin 0.2, Aspartate Amino Transf (AST/SGOT) 12, Alanine Aminotransferase (ALT/SGPT) 19, Alkaline Phosphatase 83, C-Reactive Protein, Quantitative 5.64H, Total Protein 6.0L, Albumin 1.8L, Albumin/Globulin Ratio 0.4L 03/27/20 21:24: Coronavirus (COVID-19)(PCR) NEGATIVE 03/27/20 22:14: Bedside Glucose (Misc Panel) 202H CBC/BMP Laboratory Tests 03/27/20 18:50 Microbiology Microbiology 03/27/20 Blood Culture, Received Pending 03/27/20 Blood Culture, Received Pending Home Medications Scheduled Aspirin (Aspirin EC) 81 Mg Tab, 81 MG PO DAILY Atorvastatin Calcium (Atorvastatin Calcium) 40 Mg Tablet, 40 MG PO QHS Calcitriol (Calcitriol) 0.25 Mcg Capsule, 0.25 MCG PO DAILY Carvedilol (Carvedilol) 6.25 Mg Tab, 6.25 MG PO BID Clopidogrel Bisulfate (Plavix) 75 Mg Tablet, 75 MG PO QHS Ferrous Sulfate (Ferrous Sulfate) 325 Mg Tab, 325 MG PO DAILY Fluoxetine Hcl (Fluoxetine HCl) 10 Mg Capsule, 30 MG PO DAILY Hydralazine HCl (Hydralazine HCl) 50 Mg Tablet, 50 MG PO TID Insulin Detemir (Levemir Flextouch) 100 Unit/1 Ml Insuln.pen, 40 UNIT SC DAILY STARTING 03/28/2020 AT 0600, WAS TAKING 32 UNITS DAILY PRIOR Insulin Detemir (Levemir Flextouch) 100 Unit/1 Ml Insuln.pen, 20 UNIT SC QHS Insulin NPH Human Isophane (Humulin N Kwikpen) 100 Unit/1 Ml Insuln.pen, 10 UNITS SC DAILY AT NOON Isosorbide Dinitrate (Isosorbide Dinitrate) 20 Mg Tablet, 20 MG PO BID Lanolin Alcohol/Mo/W.pet/[place] (Eucerin Creme) 454 Gm Cream..g., 1 DOSE TOP BID BILATERAL LOWER EXTREMITIES Lidocaine HCl (Aspercreme) 4% Cream..g., 1 DOSE TOP TID APPLY SMALL AMOUNT TO RIGHT KNEE: 0600, 1400, 2100 Megestrol Acetate (Megestrol Acetate) 400 Mg/10 Ml Oral.susp, 10 ML PO BID LAST DAY: 04/10/2020 Nut.tx.imp.renal Fxn,Lac-Reduc (Nepro Carb Steady) 237 Ml Liquid, 240 ML PO PC GIVE AFTER MEALS IF PO INTAKE IS LESS THAN OR EQUAL TO 50% Pantoprazole Sodium (Pantoprazole Sodium) 40 Mg Tablet.dr, 40 MG PO BID 0600, 2000 Sennosides/Docusate Sodium (Senna-S Tablet) 1 Each Tablet, 2 TAB PO BID Spironolactone (Spironolactone) 25 Mg Tablet, 25 MG PO DAILY Torsemide (Torsemide) 20 Mg Tablet, 20 MG PO DAILY Scheduled PRN Acetaminophen (Acetaminophen) 325 Mg Tab, 650 MG PO Q4H PRN for PAIN / FEVER Bisacodyl (Bisacodyl) 10 Mg Supp.rect, 10 MG TN DAILY PRN for CONSTIPATION Glucagon,Human Recombinant (Glucagon Emergency Kit) 1 Mg Vial, 1 MG IM ASDIRECTED PRN for LOW BLOOD SUGAR Magnesium Hydroxide (Milk of Magnesia) 400 Mg/5 Ml Oral.susp, 400 MG PO DAILY PRN for CONSTIPATION Polyvinyl Alcohol (Artificial Tears) 15 Ml Drops, 1 DROP OU Q2H PRN for DRY EYES Sodium Phosphate,[place]-Dibasic (Enema) 133 Ml Enema, 1 GALO TN DAILY PRN for CONSTIPATION Allergies Coded Allergies: Latex, Natural Rubber (Verified Allergy, Unknown, Rash, 02/21/20) milk (Verified Allergy, Unknown, 02/21/20) JOSE GARCIA MD Mar 27, 2020 22:41
[2020-03-27] MEDS ORDERED: POLYVINYL ALCOHOL OPHTH SOLN 15 ML(LIQUITEARS) OU PRN (22:45)
[2020-03-27] MEDS ORDERED: BISACODYL 10 MG SUPP PR PRN (22:45)
[2020-03-28] VITALS: BP 146/55
[2020-03-28] MEDS: CLOPIDOGREL 75 MG TAB PO SCH ×2 (00:27→21:03)
[2020-03-28] MEDS: **hydrALAZINE** 50 MG TAB PO SCH ×4 (00:27→21:03)
[2020-03-28] MEDS: CARVedilol 6.25 MG TAB PO SCH ×3 (00:28→21:04)
[2020-03-28] MEDS: HEPARIN SOD (PORCINE) 5000UNITS/ML 1ML VIAL/SYRINGE SC SCH ×4 (00:28→21:05)
--- NOTE | 2020-03-28 00:56 | REPVR ---
PROCEDURE INFORMATION: Exam: MR Right Lower Extremity Other Than Joint Without Contrast; Foot Exam date and time: 03/27/2020 11:21 PM Age: 74 years old Clinical indication: Right; Patient HX: Pain, redness, swelling, in RT foot, unable to give contrast due to renal failure; Additional info: Evaluate for osteomyelitis TECHNIQUE: Imaging protocol: MR of the Right lower extremity without contrast. Exam focused on the foot. COMPARISON: MRI-Foot W/O FOL WITH 05/15/2016 3:02 PM FINDINGS: Bones and cartilage: Fracture of the calcaneus is again visualized when correlated with the previous MRI. There is progressive displacement of the fractured posterior calcaneus, which is located posterior to the talus. There is abnormal morphology of the mid to hindfoot, contributed by neuropathic changes. Patchy marrow edema involving the midfoot, most significant involving the navicular bone. There is significant marrow edema involving the talus and anterior calcaneus as well as the distal tibia and fibula. These findings can be contributed by neuropathic changes although osteomyelitis is also considered. Marrow edema involving the anterior talus and navicular bone has progressed compared to the previous exam. Abnormal morphology of the talus. Stable abnormal morphology of the lateral malleolus, consistent with an old fracture. Joint spaces: Unremarkable. No joint effusion. LIGAMENTS: Lisfranc ligament: No evidence of tear. TENDONS: Flexor tendons of foot: No evidence of tear. Tibialis posterior tendon: No visualized tear. Fluid is seen adjacent to this tendon, suggestive of tenosynovitis, although infection is within the differential. Peroneal tendons: A multiloculated fluid collection is identified lateral to the ankle and adjacent to the peroneal tendons. This measures 5.1 x 0.9 x 1.8 cm and is new compared to the previous exam. Small fluid collections are also visualized medial to the ankle and within the hindfoot. Abscesses are considered. A small band of fluid or swelling is also identified involving the plantar aspect of the hindfoot. Extensor tendons of foot: Unremarkable. No evidence of tear. Tibialis anterior tendon: Unremarkable as visualized. Tarsal canal (Sinus tarsi): The suboptimal evaluation due to the abnormal morphology of the foot. Muscles: Extensive muscle atrophy. Patchy muscle edema, suggestive of myositis or diabetic myopathy. Soft tissues: Soft tissue swelling of the foot and ankle visualized. See above. An additional band of fluid is identified anterior to the fibula. Plantar fascia: There is a small amount of fluid adjacent to the proximal plantar fascia, suggestive of plantar fasciitis. IMPRESSION: 1. There is abnormal morphology of the mid to hindfoot, contributed by neuropathic changes. Patchy marrow edema involving the midfoot, most significant involving the navicular bone. There is significant marrow edema involving the talus and anterior calcaneus as well as the distal tibia and fibula. These findings can be contributed by neuropathic changes although osteomyelitis is also considered. Marrow edema involving the anterior talus and navicular bone has progressed compared to the previous exam. 2. A multiloculated fluid collection is identified lateral to the ankle and adjacent to the peroneal tendons. This measures 5.1 x 0.9 x 1.8 cm and is new compared to the previous exam. Small fluid collections are also visualized medial to the ankle and within the hindfoot. Abscesses are considered. A small band of fluid or swelling is also identified involving the plantar aspect of the hindfoot. Postcontrast sequences recommended. 3. Fracture of the calcaneus is again visualized when correlated with the previous MRI. There is progressive displacement of the fractured posterior calcaneus, which is located posterior to the talus. 4. Stable abnormal morphology of the lateral malleolus, consistent with an old fracture. 5. Soft tissue swelling of the foot and ankle visualized. 6. Additional findings described above. Electronically signed by: Jasson Roberts On 03/28/2020 00:57:05 AM
[2020-03-28] MEDS: PIPERACILLIN/TAZOBACTAM SOD 2.25 GM in D5W MINI-BAG PLUS 50 ML IV SCH ×4 (03:37→21:35)
[2020-03-28 06:00] VITALS: BP 164/86
[2020-03-28 06:30] LABS: BASO # 0.1 10^3/uL (0.0-0.2); BASO % 0.6 % (0.0-1.0); EOS # 0.1 10^3/uL (0.0-0.5); EOS % 1.1 % (0.0-3.0); HEMATOCRIT 26.7 % (36.0-47.0); HEMOGLOBIN 7.7 g/dl (12.0-15.5); LYMPH # 1.8 10^3/uL (1.5-5.0); LYMPH % 19.5 % (24.0-44.0); MEAN CORPUSCULAR HEMOGLOBIN 25.7 pg (27.0-33.0); MEAN CORPUSCULAR HGB CONC 28.8 g/dl (32.0-36.5); MONO # 0.8 10^3/uL (0.0-0.8); MONO % 8.1 % (0.0-5.0); NEUTROPHILS # 6.4 10^3/uL (1.5-8.5); NEUTROPHILS % 68.4 % (36.0-66.0); PLATELET COUNT, AUTOMATED 251 10^3/uL (150-450); WHITE BLOOD COUNT 9.3 10^3/uL (4.0-10.0)
[2020-03-28 06:49] LABS: C REACTIVE PROTEIN QUANTITATIV 4.64 MG/DL (0.00-0.30); CALCIUM LEVEL 8.6 MG/DL (8.8-10.2); CREATININE FOR GFR 1.79 MG/DL (0.55-1.30); GLOMERULAR FILTRATION RATE 29.6 (>39); MAGNESIUM LEVEL 2.3 MG/DL (1.8-2.4); POTASSIUM SERUM 4.4 MEQ/L (3.5-5.1)
--- NOTE | 2020-03-28 09:09 | IPN ---
PODIATRY EVALUATION DATE: 03/28/2020 at approximately 7:30 a.m. CHIEF COMPLAINT/HISTORY: 74-year-old female seen for evaluation of ulceration on the posterior aspect of her right heel with cellulitis of the lower leg and swelling of her right foot. Patient has been seen by me in the past for a Charcot foot deformity with fracture of her right foot. She has not been seen recently and she is presently living at [facility] and was admitted for the cellulitis of her leg and she is seen today for evaluation. PAST MEDICAL HISTORY: 1. Dementia. 2. Hypertension. 3. Insulin-dependent diabetes mellitus. 4. Suspected congestive heart failure. 5. Chronic kidney disease stage 3. 6. Iron deficiency. 7. Vitamin D deficiency. 8. Depression. 9. GERD. PAST SURGICAL HISTORY: 1. section. 2. Right ankle surgery. PHYSICAL EXAMINATION: Exam reveals a 74-year-old pleasant white female. She is in no acute distress. Evaluation of her foot reveals an ulceration on the posterior aspect of the calcaneus measuring approximately 2.5 cm in diameter with a black eschar. There is no fluid posterior to this ulceration. There is some swelling noted along the lateral aspect of the foot and ankle along the peroneal tendons. Palpation reveals no abscess formation with no increased erythema over that area. The skin is intact. There is no ulcerations on the foot outside of the posterior heel ulcer. There is some swelling on the insertion point of the heel; however, no increased temperature and no ulceration in that location; this is over the medial tuberosity of the calcaneus. IMAGING: MRI was reviewed revealing fluid along the peroneal tendons as well as increased marrow edema of the navicular and talus. Correlating this to her foot there is crepitation with gentle manipulation of her foot consistent with reactivation of her Charcot fracture/progression. ASSESSMENT: 1. Cellulitis anterior right leg. 2. Unstageable ulcer of the heel most likely stage 3. Since there is a black eschar debridement is not recommended. 3. Patient's swelling and MRI findings most suggestive of reactivation of Charcot fracture. PLAN: Plan would be to continue to offload her foot with an offloading boot, floating the heel with pillows under her leg which she is presently in the proper position when she was seen on visitation. Continue with a foam dressing; this can be changed every 3-4 days if no discharge is noted. Continue addressing her swelling of the lower leg with elevation and compression therapy. Since the patient's fracture has reactivated would recommend bracing or casting. She may have a CAM boot since she was treated with this in the past. If she does I would recommend reapplying her CAM boot when she is up and about. It may be difficult for the patient to maintain a nonweightbearing attitude to her right foot; however, this should be actively pursued and discussed with the patient; however, this may be difficult with her increasing dementia. Discussed with the patient nonweightbearing status may require 2-3 months for allowing consolidation of the fracture. Her questions were answered.
[2020-03-28] MEDS: HumaLOG INSULIN (NovoLOG) PER UNIT SC SCH ×4 (09:47→20:54)
[2020-03-28] MEDS: SENOKOT S TAB PO SCH ×2 (09:47→21:05)
[2020-03-28] MEDS: LEVEMIR (INSULIN DETEMIR) 1 UNITS/0.01ML SC SCH ×2 (09:47→21:04)
[2020-03-28] MEDS: ASPIRIN 81 MG ENTERIC TAB PO SCH (09:48)
[2020-03-28] MEDS: FERROUS SULFATE 325MG TAB PO SCH (09:48)
[2020-03-28] MEDS: CALCITRIOL 0.25 MCG CAP (S0169) PO SCH (09:48)
[2020-03-28] MEDS: SPIRONOLACTONE 25 MG TAB PO SCH (09:48)
[2020-03-28] MEDS: TORSEMIDE 20 MG TAB PO SCH (09:49)
[2020-03-28] MEDS: PANTOPRAZOLE 40MG TAB (PROTONIX) PO SCH ×2 (09:49→21:03)
[2020-03-28] MEDS: FLUoxetine 10 MG CAP PO SCH (09:49)
[2020-03-28] MEDS: ISOSORBIDE DIN. (ISORDIL) 20 MG TAB PO SCH ×2 (09:50→14:29)
[2020-03-28] MEDS: MEGESTROL 400MG 10ML SUSP ORAL SYRINGE *DRAW UP EXACT DOSE PO SCH ×2 (09:50→21:05)
[2020-03-28 14:00] VITALS: BP 128/65
[2020-03-28] MEDS: ATORVASTATIN 20 MG TAB PO SCH (21:03)
--- NOTE | 2020-03-28 21:51 | IPNPDOC ---
Subjective Date Seen The patient was seen on 03/28/20. Subjective Chief Complaint/HPI Ms. Rodriguez is a 12 to-year-old female with dementia, hypertension, diabetes mellitus type 2 who is here from [facility] with right foot cellulitis. Currently denies any fever, chest pain, dyspnea, abdominal pain, or dysuria. Podiatry evaluated patient today, no osteomyelitis. Objective Physical Examination General Exam: Positive: No Acute Distress Eye Exam: Positive: EOMI ENT Exam: Positive: Atraumatic Neck Exam: Positive: Supple Chest Exam: Positive: Clear to auscultation Heart Exam: Positive: Rate Normal, Regular Rhythm Abdomen Exam: Positive: Normal bowel sounds, Soft; Negative: Tenderness Extremity Exam: Positive: Edema Psych Exam: Positive: Mood NL Assessment /Plan Assessment Ms. Rodriguez is a 12 to-year-old female with dementia, hypertension, diabetes mellitus type 2 who is here from [facility] with right foot cellulitis. Titrate, Dr. Hamilton, evaluated the patient. No osteomyelitis. Imaging demonstrates reactivation of Charcot's fracture. Podiatry recommends CAM boot and non-weightbearing status. Otherwise, she has right foot cellulitis being treated with antibiotics. Plan/VTE VTE Prophylaxis Ordered?: Yes Plan 1. Cellulitis of the right foot Per podiatry, no osteomyelitis On Zosyn 2. Reactivation of Charcot's foot Podiatry following, recommendations appreciated CAM boot and nonweightbearing status 3. Diabetes mellitus type 2 Insulin sliding scale 4. Normocytic anemia Stable, but lower than normal 5. Dementia Lives at [facility] Continue with Megace 6. Hypertension Continue carbidopa, hydralazine, isosorbide mononitrate, torsemide, spironolactone 7. Dyslipidemia Continue with aspirin, Plavix, covered I'll, and atorvastatin 8. Depression Continue with fluoxetine 9. GERD Continue with Protonix 10. DVT prophylaxis Heparin VS, I&O, 24H, Fishbone Vital Signs/I&O Vital Signs Date Time Temp Pulse Resp B/P (MAP) Pulse Ox O2 Delivery O2 Flow Rate FiO2 03/28/20 21:04 72 03/28/20 21:03 129/64 03/28/20 14:00 98.5 18 95 Room Air I&O- Last 24 Hours up to 6 AM 03/28/20 06:00 Intake Total 110 ml Balance 110 ml Laboratory Data 24H LABS Laboratory Tests 2 03/27/20 22:14: Bedside Glucose (Misc Panel) 202H 03/27/20 22:47: Lactic Acid Level 0.9 03/28/20 06:04: Immature Granulocyte % (Auto) 2.3, Neutrophils (%) (Auto) 68.4H, Lymphocytes (%) (Auto) 19.5L, Monocytes (%) (Auto) 8.1H, Eosinophils (%) (Auto) 1.1, Basophils (%) (Auto) 0.6, Neutrophils # (Auto) 6.4, Lymphocytes # (Auto) 1.8, Monocytes # (Auto) 0.8, Eosinophils # (Auto) 0.1, Basophils # (Auto) 0.1, Nucleated Red Blood Cells % (auto) 0.0, Anion Gap 8, Glomerular Filtration Rate 29.6L, Calcium Level 8.6L, Magnesium Level 2.3, C-Reactive Protein, Quantitative 4.64H 03/28/20 11:24: Bedside Glucose (Misc Panel) 229H 03/28/20 16:44: Bedside Glucose (Misc Panel) 165H 03/28/20 20:28: Bedside Glucose (Misc Panel) 161H CBC/BMP Laboratory Tests 03/28/20 06:04 Microbiology Microbiology 03/27/20 Blood Culture - Preliminary, Resulted No growth after 24 hours . All specim... 03/27/20 Blood Culture - Preliminary, Resulted No growth after 24 hours . All specim... NEEL GOMES DO Mar 28, 2020 21:51
[2020-03-28 22:00] VITALS: BP 129/64
[2020-03-29] MEDS: PIPERACILLIN/TAZOBACTAM SOD 2.25 GM in D5W MINI-BAG PLUS 50 ML IV SCH ×4 (03:27→21:47)
[2020-03-29] MEDS: HEPARIN SOD (PORCINE) 5000UNITS/ML 1ML VIAL/SYRINGE SC SCH ×3 (05:06→21:47)
[2020-03-29 06:00] VITALS: BP 124/66
[2020-03-29 07:22] LABS: BASO # 0.1 10^3/uL (0.0-0.2); BASO % 0.6 % (0.0-1.0); EOS # 0.1 10^3/uL (0.0-0.5); EOS % 0.9 % (0.0-3.0); HEMATOCRIT 25.6 % (36.0-47.0); HEMOGLOBIN 7.5 g/dl (12.0-15.5); MEAN CORPUSCULAR HEMOGLOBIN 25.8 pg (27.0-33.0); MEAN CORPUSCULAR HGB CONC 29.3 g/dl (32.0-36.5); MONO # 0.8 10^3/uL (0.0-0.8); MONO % 8.5 % (0.0-5.0); NEUTROPHILS # 6.4 10^3/uL (1.5-8.5); NEUTROPHILS % 67.3 % (36.0-66.0); PLATELET COUNT, AUTOMATED 251 10^3/uL (150-450); RED BLOOD COUNT 2.91 10^6/uL (4.00-5.40); WHITE BLOOD COUNT 9.5 10^3/uL (4.0-10.0)
[2020-03-29 07:41] LABS: C REACTIVE PROTEIN QUANTITATIV 4.02 MG/DL (0.00-0.30); CALCIUM LEVEL 8.2 MG/DL (8.8-10.2); CREATININE FOR GFR 1.71 MG/DL (0.55-1.30); GLOMERULAR FILTRATION RATE 31.2 (>39); MAGNESIUM LEVEL 2.4 MG/DL (1.8-2.4); POTASSIUM SERUM 4.5 MEQ/L (3.5-5.1)
[2020-03-29] MEDS: HumaLOG INSULIN (NovoLOG) PER UNIT SC SCH ×4 (08:59→20:30)
[2020-03-29] MEDS: FLUoxetine 10 MG CAP PO SCH (09:00)
[2020-03-29] MEDS: ISOSORBIDE DIN. (ISORDIL) 20 MG TAB PO SCH ×2 (09:01→16:00)
[2020-03-29] MEDS: LEVEMIR (INSULIN DETEMIR) 1 UNITS/0.01ML SC SCH ×2 (09:01→21:00)
[2020-03-29] MEDS: CALCITRIOL 0.25 MCG CAP (S0169) PO SCH (09:01)
[2020-03-29] MEDS: ASPIRIN 81 MG ENTERIC TAB PO SCH (09:02)
[2020-03-29] MEDS: TORSEMIDE 20 MG TAB PO SCH (09:02)
[2020-03-29] MEDS: FERROUS SULFATE 325MG TAB PO SCH (09:02)
[2020-03-29] MEDS: SENOKOT S TAB PO SCH ×2 (09:02→20:31)
[2020-03-29] MEDS: CARVedilol 6.25 MG TAB PO SCH ×2 (09:02→20:31)
[2020-03-29] MEDS: MEGESTROL 400MG 10ML SUSP ORAL SYRINGE *DRAW UP EXACT DOSE PO SCH ×2 (09:03→20:30)
[2020-03-29] MEDS: **hydrALAZINE** 50 MG TAB PO SCH ×3 (09:03→20:31)
[2020-03-29] MEDS: SPIRONOLACTONE 25 MG TAB PO SCH (09:03)
[2020-03-29] MEDS: PANTOPRAZOLE 40MG TAB (PROTONIX) PO SCH ×2 (09:03→20:30)
--- NOTE | 2020-03-29 12:00 | ECHO ---
DATE OF PROCEDURE: 03/28/2020 Age: 74 Gender: Female Height: 152 cm Weight: 91 kg REFERRING PHYSICIAN: Ash Nelson M.D. INDICATION: Congestive heart failure. MEASUREMENTS: IVS 1.2 cm LV 4.7 cm LVPW 1.0 cm LA 3.6 cm Aorta 3.1 cm RV 3.8 cm IVC 2.1 cm Mitral E wave velocity 103 cm/s Mitral A wave 144 cm/s E prime septal 7.3 cm/s E prime lateral 6.9 cm/s FINDINGS: This study is of rather limited technical quality with difficult visualization. Underlying sinus rhythm with narrow QRS complex. Left ventricle is normal size. Mild left ventricular hypertrophy is present. Overall estimated LVEF around 60%, no distinct segmental wall motion abnormalities are appreciated. Right ventricle is also normal size and systolic function. Both atria appear to be at least mildly enlarged. Aortic valve is mildly sclerotic, but it has three cusps and preserved mobility. Mitral valve also exhibits degenerative abnormalities with mitral annular calcifications, but mobility of leaflets is preserved. Tricuspid valve appears normal. Pulmonic valve was not visualized. No pericardial effusion is noted, but there is a small amount of pericardial fat pad. Inferior vena cava is dilated, but collapses with inspiration indicative of likely mildly elevated central venous pressure. Aortic root is normal. Aortic arch and abdominal aorta were not well seen. Doppler interrogation reveals no aortic stenosis or insufficiency. There is trace mitral insufficiency. Tricuspid valve is functionally competent. Mitral inflow pattern and tissue Doppler imaging of mitral annulus revealed grade 1 diastolic dysfunction. CONCLUSIONS: 1. Study is of difficult technical quality, underlying sinus rhythm. 2. Normal left ventricular (LV) size with mild left ventricular hypertrophy (LVH) and likely normal systolic function. Grade 1 diastolic dysfunction. 3. No hemodynamically significant valvular disease. 4. Mildly elevated central venous pressure. 5. Unable to estimate pulmonary artery pressure. 6. Pericardial fat pad is noted. MTDD
--- NOTE | 2020-03-29 13:07 | IPNPDOC ---
Subjective Date Seen The patient was seen on 03/29/20. Subjective Chief Complaint/HPI Ms. Rodriguez is a 12 to-year-old female with dementia, hypertension, diabetes mellitus type 2 who is here from [facility] with right foot cellulitis. Currently denies fever, chest pain, dyspnea, abdominal pain, or dysuria. Right leg erythema has dulled. This morning, hemoglobin continues to be low and declining. Will work up anemia. Objective Physical Examination General Exam: Positive: No Acute Distress Eye Exam: Positive: EOMI ENT Exam: Positive: Atraumatic Neck Exam: Positive: Supple Chest Exam: Positive: Clear to auscultation Heart Exam: Positive: Rate Normal, Regular Rhythm Abdomen Exam: Positive: Normal bowel sounds, Soft; Negative: Tenderness Extremity Exam: Positive: Edema Psych Exam: Positive: Mood NL Assessment /Plan Assessment Ms. Rodriguez is a 12 to-year-old female with dementia, hypertension, diabetes mellitus type 2 who is here from [facility] with right foot cellulitis. Titrate, Dr. Hamilton, evaluated the patient. No osteomyelitis. Imaging demonstrates reactivation of Charcot's fracture. Podiatry recommends CAM boot and non-weightbearing status. Otherwise, she has right foot cellulitis being treated with antibiotics. Her anemia has been progressively worsening. Will work up anemia Plan/VTE VTE Prophylaxis Ordered?: Yes Plan 1. Cellulitis of the right foot Per podiatry, no osteomyelitis On Zosyn 2. Reactivation of Charcot's foot Podiatry following, recommendations appreciated CAM boot and nonweightbearing status 3. Diabetes mellitus type 2 Insulin sliding scale 4. Normocytic anemia Slowly declining. May need transfusion. Repeat CBC this afternoon with iron studies, LDH, reticulocyte count, and occult stool 5. Dementia Lives at [facility] Continue with Megace 6. Hypertension Continue carbidopa, hydralazine, isosorbide mononitrate, torsemide, spironolactone 7. Dyslipidemia Continue with aspirin, Plavix, covered I'll, and atorvastatin 8. Depression Continue with fluoxetine 9. GERD Continue with Protonix 10. DVT prophylaxis Heparin VS, I&O, 24H, Fishbone Vital Signs/I&O Vital Signs Date Time Temp Pulse Resp B/P (MAP) Pulse Ox O2 Delivery O2 Flow Rate FiO2 03/29/20 09:01 170/74 03/29/20 06:00 97.9 70 18 94 Room Air I&O- Last 24 Hours up to 6 AM 03/29/20 06:00 Intake Total 1180 ml Output Total 0 ml Balance 1180 ml Laboratory Data 24H LABS Laboratory Tests 2 03/28/20 16:44: Bedside Glucose (Misc Panel) 165H 03/28/20 20:28: Bedside Glucose (Misc Panel) 161H 03/29/20 06:51: Immature Granulocyte % (Auto) 1.7, Neutrophils (%) (Auto) 67.3H, Lymphocytes (%) (Auto) 21.0L, Monocytes (%) (Auto) 8.5H, Eosinophils (%) (Auto) 0.9, Basophils (%) (Auto) 0.6, Neutrophils # (Auto) 6.4, Lymphocytes # (Auto) 2.0, Monocytes # (Auto) 0.8, Eosinophils # (Auto) 0.1, Basophils # (Auto) 0.1, Reticulocyte # (auto) 91.1H, Nucleated Red Blood Cells % (auto) 0.0, Percent Reticulocyte Count 3.1H, Reticulocyte Hemoglobin Equivalent 30.4, Anion Gap 4L, Glomerular Filtration Rate 31.2L, Calcium Level 8.2L, Magnesium Level 2.4, C-Reactive Protein, Quantitative 4.02H 03/29/20 11:41: Bedside Glucose (Misc Panel) 122H CBC/BMP Laboratory Tests 03/29/20 06:51 Microbiology Microbiology 03/27/20 Blood Culture - Preliminary, Resulted No growth after 24 hours . All specim... 03/27/20 Blood Culture - Preliminary, Resulted No growth after 24 hours . All specim... NEEL GOMES DO Mar 29, 2020 13:07
[2020-03-29 13:46] LABS: HEMATOCRIT 26.7 % (36.0-47.0); HEMOGLOBIN 7.8 g/dl (12.0-15.5); MEAN CORPUSCULAR HEMOGLOBIN 26.3 pg (27.0-33.0); MEAN CORPUSCULAR HGB CONC 29.2 g/dl (32.0-36.5); MEAN CORPUSCULAR VOLUME 89.9 fl (80.0-96.0); PLATELET COUNT, AUTOMATED 242 10^3/uL (150-450); RED BLOOD COUNT 2.97 10^6/uL (4.00-5.40); WHITE BLOOD COUNT 8.6 10^3/uL (4.0-10.0)
[2020-03-29 14:00] VITALS: BP 119/51
[2020-03-29 14:16] LABS: PERCENT SATURATION 28.8 % (13.2-45.0)
[2020-03-29] MEDS: ATORVASTATIN 20 MG TAB PO SCH (20:30)
[2020-03-29] MEDS: CLOPIDOGREL 75 MG TAB PO SCH (20:30)
[2020-03-29 21:00] VITALS: BP 109/45
[2020-03-30] MEDS: PIPERACILLIN/TAZOBACTAM SOD 2.25 GM in D5W MINI-BAG PLUS 50 ML IV SCH ×4 (03:17→23:13)
[2020-03-30] MEDS: HEPARIN SOD (PORCINE) 5000UNITS/ML 1ML VIAL/SYRINGE SC SCH ×3 (05:41→23:13)
[2020-03-30 05:55] LABS: BASO # 0.1 10^3/uL (0.0-0.2); BASO % 0.8 % (0.0-1.0); EOS # 0.1 10^3/uL (0.0-0.5); HEMOGLOBIN 7.6 g/dl (12.0-15.5); LYMPH # 1.7 10^3/uL (1.5-5.0); LYMPH % 21.6 % (24.0-44.0); MEAN CORPUSCULAR HEMOGLOBIN 26.2 pg (27.0-33.0); MEAN CORPUSCULAR HGB CONC 29.2 g/dl (32.0-36.5); MEAN CORPUSCULAR VOLUME 89.7 fl (80.0-96.0); MONO # 0.7 10^3/uL (0.0-0.8); MONO % 8.9 % (0.0-5.0); NEUTROPHILS # 5.1 10^3/uL (1.5-8.5); NEUTROPHILS % 66.1 % (36.0-66.0); PLATELET COUNT, AUTOMATED 231 10^3/uL (150-450); WHITE BLOOD COUNT 7.7 10^3/uL (4.0-10.0)
[2020-03-30 06:00] VITALS: BP 134/62
[2020-03-30 06:18] LABS: C REACTIVE PROTEIN QUANTITATIV 3.22 MG/DL (0.00-0.30); CALCIUM LEVEL 8.3 MG/DL (8.8-10.2); CREATININE FOR GFR 1.7 MG/DL (0.55-1.30); GLOMERULAR FILTRATION RATE 31.5 (>39); MAGNESIUM LEVEL 2.4 MG/DL (1.8-2.4); POTASSIUM SERUM 4.8 MEQ/L (3.5-5.1)
[2020-03-30] MEDS: HumaLOG INSULIN (NovoLOG) PER UNIT SC SCH ×4 (08:11→21:00)
[2020-03-30] MEDS: MEGESTROL 400MG 10ML SUSP ORAL SYRINGE *DRAW UP EXACT DOSE PO SCH ×2 (08:11→20:12)
[2020-03-30] MEDS: LEVEMIR (INSULIN DETEMIR) 1 UNITS/0.01ML SC SCH ×2 (08:12→20:15)
[2020-03-30] MEDS: TORSEMIDE 20 MG TAB PO SCH (08:13)
[2020-03-30] MEDS: CALCITRIOL 0.25 MCG CAP (S0169) PO SCH (08:13)
[2020-03-30] MEDS: SENOKOT S TAB PO SCH ×2 (08:13→20:12)
[2020-03-30] MEDS: PANTOPRAZOLE 40MG TAB (PROTONIX) PO SCH ×2 (08:14→20:13)
[2020-03-30] MEDS: ASPIRIN 81 MG ENTERIC TAB PO SCH (08:14)
[2020-03-30] MEDS: FERROUS SULFATE 325MG TAB PO SCH (08:14)
[2020-03-30] MEDS: SPIRONOLACTONE 25 MG TAB PO SCH (08:14)
[2020-03-30] MEDS: FLUoxetine 10 MG CAP PO SCH (08:14)
[2020-03-30] MEDS: ISOSORBIDE DIN. (ISORDIL) 20 MG TAB PO SCH ×2 (08:18→14:59)
[2020-03-30] MEDS: CARVedilol 6.25 MG TAB PO SCH ×2 (08:18→20:14)
[2020-03-30] MEDS: **hydrALAZINE** 50 MG TAB PO SCH ×3 (08:19→20:13)
[2020-03-30 14:00] VITALS: BP 117/44
--- NOTE | 2020-03-30 17:03 | IPNPDOC ---
Subjective Date Seen The patient was seen on 03/30/20. Subjective Chief Complaint/HPI Ms. Rodriguez is a 12 to-year-old female with dementia, hypertension, diabetes mellitus type 2 who is here from [facility] with right foot cellulitis. She is not A&Ox3. Does not know location or year. Spoke with her next of kin about blood transfusion. He wants to hold off on blood transfusion at this time to see if she will respond on her own. Otherwise patient denies fever, chest pain, dyspnea, abdominal pain, or dysuria. Right leg flaker tender. Objective Physical Examination General Exam: Positive: No Acute Distress Eye Exam: Positive: EOMI ENT Exam: Positive: Atraumatic Neck Exam: Positive: Supple Chest Exam: Positive: Clear to auscultation Heart Exam: Positive: Rate Normal, Regular Rhythm Abdomen Exam: Positive: Normal bowel sounds, Soft; Negative: Tenderness Extremity Exam: Positive: Edema Psych Exam: Positive: Mood NL Assessment /Plan Assessment Ms. Rodriguez is a 12 to-year-old female with dementia, hypertension, diabetes mellitus type 2 who is here from [facility] with right foot cellulitis. Titrate, Dr. Hamilton, evaluated the patient. No osteomyelitis. Imaging demonstrates reactivation of Charcot's fracture. Podiatry recommends CAM boot and non-weightbearing status. Otherwise, she has right foot cellulitis being treated with antibiotics. Appears to have anemia of chronic disease secondary to CKD. LDH and T bili normal so unlikely hemolysis. Iron and TIBC low with ferritin elevated. Pending Hemoccult stool. Plan/VTE VTE Prophylaxis Ordered?: Yes Plan 1. Cellulitis of the right foot Per podiatry, no osteomyelitis On Zosyn 2. Reactivation of Charcot's foot Podiatry following, recommendations appreciated CAM boot and nonweightbearing status -Will order physical therapy to work with patient 3. Diabetes mellitus type 2 Insulin sliding scale 4. Normocytic anemia -Anemia of chronic disease 2/2 CKD Since hemoglobin not below 7, next of kin has decided to hold off on transfusion -Trend CBC -Pending Hemoccult stool 5. Dementia Lives at [facility] Continue with Megace 6. Hypertension Continue carbidopa, hydralazine, isosorbide mononitrate, torsemide, spironolactone 7. Dyslipidemia Continue with aspirin, Plavix, covered I'll, and atorvastatin 8. Depression Continue with fluoxetine 9. GERD Continue with Protonix 10. DVT prophylaxis Heparin Disposition: Physical therapy to work with patient as patient is non weight bearing on right foot. May need rehab. Otherwise discussed transfusion with son. Declined as her hemoglobin is not yet below 7. VS, I&O, 24H, Fishbone Vital Signs/I&O Vital Signs Date Time Temp Pulse Resp B/P (MAP) Pulse Ox O2 Delivery O2 Flow Rate FiO2 03/30/20 16:53 134/55 03/30/20 14:00 99.1 66 20 95 Room Air I&O- Last 24 Hours up to 6 AM 03/30/20 06:00 Intake Total 740 ml Output Total 350 ml Balance 390 ml Laboratory Data 24H LABS Laboratory Tests 2 03/29/20 20:23: Bedside Glucose (Misc Panel) 117H 03/30/20 05:36: Immature Granulocyte % (Auto) 1.6, Neutrophils (%) (Auto) 66.1H, Lymphocytes (%) (Auto) 21.6L, Monocytes (%) (Auto) 8.9H, Eosinophils (%) (Auto) 1.0, Basophils (%) (Auto) 0.8, Neutrophils # (Auto) 5.1, Lymphocytes # (Auto) 1.7, Monocytes # (Auto) 0.7, Eosinophils # (Auto) 0.1, Basophils # (Auto) 0.1, Nucleated Red Blood Cells % (auto) 0.0, Anion Gap 6L, Glomerular Filtration Rate 31.5L, Calcium Level 8.3L, Magnesium Level 2.4, C-Reactive Protein, Quantitative 3.22H 03/30/20 06:27: Bedside Glucose (Misc Panel) 136H 03/30/20 11:27: Bedside Glucose (Misc Panel) 168H 03/30/20 16:41: Bedside Glucose (Misc Panel) 212H CBC/BMP Laboratory Tests 03/30/20 05:36 Microbiology Microbiology 03/27/20 Blood Culture - Preliminary, Resulted No Growth after 48 hours. All Specime... 03/27/20 Blood Culture - Preliminary, Resulted No Growth after 48 hours. All Specime... NEEL GOMES DO Mar 30, 2020 17:03
[2020-03-30] MEDS: CLOPIDOGREL 75 MG TAB PO SCH (20:13)
[2020-03-30] MEDS: ATORVASTATIN 20 MG TAB PO SCH (20:13)
[2020-03-30 22:00] VITALS: BP 132/53
[2020-03-31] MEDS: PIPERACILLIN/TAZOBACTAM SOD 2.25 GM in D5W MINI-BAG PLUS 50 ML IV SCH ×4 (04:49→22:43)
[2020-03-31 06:00] VITALS: BP 187/70
[2020-03-31] MEDS: HEPARIN SOD (PORCINE) 5000UNITS/ML 1ML VIAL/SYRINGE SC SCH ×3 (06:34→22:42)
[2020-03-31 07:50] LABS: BASO # 0.1 10^3/uL (0.0-0.2); BASO % 0.6 % (0.0-1.0); EOS # 0.1 10^3/uL (0.0-0.5); EOS % 1.4 % (0.0-3.0); HEMOGLOBIN 7.7 g/dl (12.0-15.5); LYMPH # 1.7 10^3/uL (1.5-5.0); LYMPH % 21.9 % (24.0-44.0); MEAN CORPUSCULAR HEMOGLOBIN 26.4 pg (27.0-33.0); MEAN CORPUSCULAR HGB CONC 29.6 g/dl (32.0-36.5); MONO # 0.7 10^3/uL (0.0-0.8); MONO % 8.8 % (0.0-5.0); NEUTROPHILS # 5.2 10^3/uL (1.5-8.5); NEUTROPHILS % 66.2 % (36.0-66.0); PLATELET COUNT, AUTOMATED 245 10^3/uL (150-450); RED BLOOD COUNT 2.92 10^6/uL (4.00-5.40); WHITE BLOOD COUNT 7.9 10^3/uL (4.0-10.0)
[2020-03-31 08:24] LABS: C REACTIVE PROTEIN QUANTITATIV 2.22 MG/DL (0.00-0.30); CALCIUM LEVEL 8.1 MG/DL (8.8-10.2); CREATININE FOR GFR 1.7 MG/DL (0.55-1.30); GLOMERULAR FILTRATION RATE 31.5 (>39); MAGNESIUM LEVEL 2.3 MG/DL (1.8-2.4); POTASSIUM SERUM 4.8 MEQ/L (3.5-5.1)
[2020-03-31] MEDS: HumaLOG INSULIN (NovoLOG) PER UNIT SC SCH ×4 (08:30→22:42)
[2020-03-31] MEDS: MEGESTROL 400MG 10ML SUSP ORAL SYRINGE *DRAW UP EXACT DOSE PO SCH (08:30)
[2020-03-31] MEDS: FERROUS SULFATE 325MG TAB PO SCH (08:31)
[2020-03-31] MEDS: ASPIRIN 81 MG ENTERIC TAB PO SCH (08:31)
[2020-03-31] MEDS: TORSEMIDE 20 MG TAB PO SCH (08:31)
[2020-03-31] MEDS: LEVEMIR (INSULIN DETEMIR) 1 UNITS/0.01ML SC SCH ×2 (08:31→22:42)
[2020-03-31] MEDS: FLUoxetine 10 MG CAP PO SCH (08:31)
[2020-03-31] MEDS: SPIRONOLACTONE 25 MG TAB PO SCH (08:31)
[2020-03-31] MEDS: PANTOPRAZOLE 40MG TAB (PROTONIX) PO SCH ×2 (08:32→22:41)
[2020-03-31] MEDS: CALCITRIOL 0.25 MCG CAP (S0169) PO SCH (08:32)
[2020-03-31] MEDS: SENOKOT S TAB PO SCH ×2 (08:32→22:41)
[2020-03-31] MEDS: ISOSORBIDE DIN. (ISORDIL) 20 MG TAB PO SCH ×2 (08:36→14:00)
[2020-03-31] MEDS: **hydrALAZINE** 50 MG TAB PO SCH ×3 (08:36→22:41)
[2020-03-31] MEDS: CARVedilol 6.25 MG TAB PO SCH ×2 (08:36→22:41)
[2020-03-31 14:00] VITALS: BP 100/97
[2020-03-31 16:12] VITALS: BP 118/58
--- NOTE | 2020-03-31 18:17 | IPNPDOC ---
Subjective Date Seen The patient was seen on 03/31/20. Subjective Chief Complaint/HPI Ms. Rodriguez is a 74-year-old female with dementia, hypertension, diabetes mellitus type 2 who is here from [facility] with right leg cellulitis. Today the right leg is less erythematous and tender. Denies fever, chest pain, dyspnea, or abdominal pain. Objective Physical Examination General Exam: Positive: No Acute Distress Eye Exam: Positive: EOMI ENT Exam: Positive: Atraumatic Neck Exam: Positive: Supple Chest Exam: Positive: Clear to auscultation Heart Exam: Positive: Rate Normal, Regular Rhythm Abdomen Exam: Positive: Normal bowel sounds, Soft; Negative: Tenderness Extremity Exam: Positive: Edema Psych Exam: Positive: Mood NL Assessment /Plan Assessment Ms. Rodriguez is a 12 to-year-old female with dementia, hypertension, diabetes mellitus type 2 who is here from [facility] with right foot cellulitis. Titrate, Dr. Hamilton, evaluated the patient. No osteomyelitis. Imaging demonstrates reactivation of Charcot's fracture. Podiatry recommends CAM boot and non-weightbearing status. Otherwise, she has right foot cellulitis being treated with antibiotics. Appears to have anemia of chronic disease secondary to CKD. LDH and T bili normal so unlikely hemolysis. Iron and TIBC low with ferritin elevated. Plan/VTE VTE Prophylaxis Ordered?: Yes Plan 1. Cellulitis of the right foot Per podiatry, no osteomyelitis On Zosyn -May switch to Cefdinir on discharge 2. Reactivation of Charcot's foot Podiatry following, recommendations appreciated CAM boot and nonweightbearing status 3. Diabetes mellitus type 2 Insulin sliding scale 4. Normocytic anemia -Anemia of chronic disease 2/2 CKD Since hemoglobin not below 7, next of kin has decided to hold off on transfusion -Trend CBC -Pending Hemoccult stool 5. Dementia Lives at [facility] Continue with Megace 6. Hypertension Continue carbidopa, hydralazine, isosorbide mononitrate, torsemide, spironolactone 7. Dyslipidemia Continue with aspirin, Plavix, covered I'll, and atorvastatin 8. Depression Continue with fluoxetine 9. GERD Continue with Protonix 10. DVT prophylaxis Heparin Disposition: Patient uses lorraine lift at [facility]. Otherwise discussed transfusion with son. Declined as her hemoglobin is not yet below 7. Possible discharge back to [facility] tomorrow. VS, I&O, 24H, Fishbone Vital Signs/I&O Vital Signs Date Time Temp Pulse Resp B/P (MAP) Pulse Ox O2 Delivery O2 Flow Rate FiO2 03/31/20 16:47 118/58 03/31/20 16:12 79 03/31/20 14:00 99.1 20 94 Room Air I&O- Last 24 Hours up to 6 AM 03/31/20 06:00 Intake Total 1410 ml Output Total 500 ml Balance 910 ml Laboratory Data 24H LABS Laboratory Tests 2 03/30/20 20:00: Bedside Glucose (Misc Panel) 214H 03/31/20 07:08: Immature Granulocyte % (Auto) 1.1, Neutrophils (%) (Auto) 66.2H, Lymphocytes (%) (Auto) 21.9L, Monocytes (%) (Auto) 8.8H, Eosinophils (%) (Auto) 1.4, Basophils (%) (Auto) 0.6, Neutrophils # (Auto) 5.2, Lymphocytes # (Auto) 1.7, Monocytes # (Auto) 0.7, Eosinophils # (Auto) 0.1, Basophils # (Auto) 0.1, Nucleated Red Blood Cells % (auto) 0.0, Anion Gap 6L, Glomerular Filtration Rate 31.5L, Calcium Level 8.1L, Magnesium Level 2.3, C-Reactive Protein, Quantitative 2.22H 03/31/20 07:59: Bedside Glucose (Misc Panel) 118H 03/31/20 11:50: Bedside Glucose (Misc Panel) 149H 03/31/20 16:34: Bedside Glucose (Misc Panel) 214H CBC/BMP Laboratory Tests 03/31/20 07:08 Microbiology Microbiology 03/27/20 Blood Culture - Preliminary, Resulted No Growth after 72 hours. All specime... 03/27/20 Blood Culture - Preliminary, Resulted No Growth after 72 hours. All specime... NEEL GOMES DO Mar 31, 2020 18:17
[2020-03-31 22:00] VITALS: BP 142/70
[2020-03-31] MEDS: ATORVASTATIN 20 MG TAB PO SCH (22:41)
[2020-03-31] MEDS: CLOPIDOGREL 75 MG TAB PO SCH (22:41)
[2020-04-01] MEDS: MEGESTROL 400MG 10ML SUSP ORAL SYRINGE *DRAW UP EXACT DOSE PO SCH ×3 (01:01→21:28)
[2020-04-01] MEDS: PIPERACILLIN/TAZOBACTAM SOD 2.25 GM in D5W MINI-BAG PLUS 50 ML IV SCH (05:17)
[2020-04-01] MEDS: HEPARIN SOD (PORCINE) 5000UNITS/ML 1ML VIAL/SYRINGE SC SCH ×3 (05:18→21:26)
[2020-04-01 06:00] VITALS: BP 150/64
[2020-04-01 07:41] LABS: BASO # 0.1 10^3/uL (0.0-0.2); BASO % 0.8 % (0.0-1.0); EOS # 0.1 10^3/uL (0.0-0.5); EOS % 0.9 % (0.0-3.0); HEMOGLOBIN 7.8 g/dl (12.0-15.5); LYMPH # 1.5 10^3/uL (1.5-5.0); LYMPH % 19.5 % (24.0-44.0); MEAN CORPUSCULAR HEMOGLOBIN 26.3 pg (27.0-33.0); MEAN CORPUSCULAR HGB CONC 28.9 g/dl (32.0-36.5); MEAN CORPUSCULAR VOLUME 90.9 fl (80.0-96.0); MONO # 0.7 10^3/uL (0.0-0.8); MONO % 8.7 % (0.0-5.0); NEUTROPHILS # 5.4 10^3/uL (1.5-8.5); NEUTROPHILS % 68.7 % (36.0-66.0); PLATELET COUNT, AUTOMATED 233 10^3/uL (150-450); RED BLOOD COUNT 2.97 10^6/uL (4.00-5.40); WHITE BLOOD COUNT 7.9 10^3/uL (4.0-10.0)
[2020-04-01 07:58] LABS: C REACTIVE PROTEIN QUANTITATIV 1.4 MG/DL (0.00-0.30); CALCIUM LEVEL 8.9 MG/DL (8.8-10.2); CREATININE FOR GFR 1.95 MG/DL (0.55-1.30); GLOMERULAR FILTRATION RATE 26.8 (>39); MAGNESIUM LEVEL 2.5 MG/DL (1.8-2.4); POTASSIUM SERUM 4.9 MEQ/L (3.5-5.1)
[2020-04-01] MEDS: HumaLOG INSULIN (NovoLOG) PER UNIT SC SCH ×4 (08:57→20:31)
[2020-04-01] MEDS: LEVEMIR (INSULIN DETEMIR) 1 UNITS/0.01ML SC SCH ×2 (08:57→21:28)
[2020-04-01] MEDS: CALCITRIOL 0.25 MCG CAP (S0169) PO SCH (08:58)
[2020-04-01] MEDS: TORSEMIDE 20 MG TAB PO SCH (08:58)
[2020-04-01] MEDS: PANTOPRAZOLE 40MG TAB (PROTONIX) PO SCH ×2 (08:58→21:25)
[2020-04-01] MEDS: SENOKOT S TAB PO SCH ×2 (08:58→21:26)
[2020-04-01] MEDS: SPIRONOLACTONE 25 MG TAB PO SCH (08:58)
[2020-04-01] MEDS: FLUoxetine 10 MG CAP PO SCH (08:58)
[2020-04-01] MEDS: ASPIRIN 81 MG ENTERIC TAB PO SCH (08:58)
[2020-04-01] MEDS: **hydrALAZINE** 50 MG TAB PO SCH ×3 (09:03→21:27)
[2020-04-01] MEDS: ISOSORBIDE DIN. (ISORDIL) 20 MG TAB PO SCH ×2 (09:04→15:06)
[2020-04-01] MEDS: FERROUS SULFATE 325MG TAB PO SCH (09:04)
[2020-04-01] MEDS: CARVedilol 6.25 MG TAB PO SCH ×2 (09:04→21:26)
--- NOTE | 2020-04-01 10:58 | IPNPDOC ---
Text Note Date of Service The patient was seen on 04/01/20. NOTE SUBJECTIVE: Patient seen and examined at bedside. She states she is feeling well this morning. Denies pain in her right foot. States the swelling has been stable. OBJECTIVE: VITAL SIGNS: See below GENERAL: Alert, comfortable, in no acute distress HEENT: Normocephalic, atraumatic, EOMI, moist mucous membranes CARDIOVASCULAR: Regular rate and rhythm, normal S1 and S2. No murmurs, rubs, or gallops RESPIRATORY: Clear to auscultation bilaterally with equal air entry bilaterally. No wheezing, rhonchi, or rales. ABDOMEN: Obese, soft, nontender, nondistended, bowel sounds present EXTREMITIES: Pulses 2+/4 in bilateral upper and lower extremities. Right foot is nontender with nonpitting edema in the ankle with trace pretibial edema. SKIN: Erythema over the right foot extending to the mid anterior calf NEUROLOGIC: No focal deficits appreciated PSYCHIATRIC: Mood and affect appropriate ASSESSMENT/PLAN: 74-year-old female with a PMHx of Dementia, HTN, IDDM2, DLP, Suspected CHF, CKD3, Iron deficiency, Vitamin D deficiency, Depression, GERD, who is presented to the emergency room, sent in by her primary care provider, Dr. Dupont from [facility] for suspected right foot infection. # Reactivation of Charcot's foot on the right -Podiatry following, recommendations appreciated -CAM boot and nonweightbearing status # Right foot cellulitis -Per podiatry, no osteomyelitis. -Abx coverage with IV Zosyn x 4 days. Switch to PO cefdinir today. # Diabetes mellitus type 2 -Insulin sliding scale ACHS while inpatient. -Continue home levemir 30 units BID -hypoglycemic protocol. consistent carbohydrate diet. # Normocytic anemia -Anemia of chronic disease 2/2 CKD -Trend CBC. H/H remains stable at 7.8, baseline 9-10 -Consider transfusion for Hg<7.0 or Hg trending down. -discussed with family, no transfusion at this time as her Hg has been stable. -f/u outpatient with nephrology to discuss additional treatment options # Dementia Lives at [facility] Continue with Megace # HTN - Continue hydralazine, isosorbide dinitrate, torsemide, spironolactone # HLD/Heart disease - Continue with aspirin, plavix, and atorvastatin # Depression - continue fluoxetine # GERD - continue protonix DVT prophylaxis: SC heparin Disposition: Possible discharge back to [facility] tomorrow VSBarrington, I+O VS, [place], I+O Laboratory Tests 04/01/20 07:03 Vital Signs Date Time Temp Pulse Resp B/P (MAP) Pulse Ox O2 Delivery O2 Flow Rate FiO2 04/01/20 09:04 159/63 04/01/20 09:04 73 04/01/20 06:00 98.2 18 96 Room Air I&O- Last 24 Hours up to 6 AM 04/01/20 06:00 Intake Total 1360 ml Output Total 325 ml Balance 1035 ml GME ATTESTATION GME ATTESTATION My faculty preceptor for this patient encounter was physically present during the encounter and was fully available. All aspects of the patient interview, examination, medical decision making process, and medical care plan development were reviewed and approved by the faculty preceptor. The faculty preceptor is aware and concurs with the plan as stated in the body of this note and will attest to such by his/her cosignature. ATTENDING NOTE I, Charles Noel, saw and evaluated the patient. I agree with the finding and the plan of care as documented in the resident note. GILL CONTRERAS D.O. Apr 01, 2020 10:58 CHARLES NOEL DO Apr 01, 2020 16:30
[2020-04-01] MEDS: CEFDINIR 300 MG CAP (OMNICEF) PO SCH (11:10)
[2020-04-01 14:00] VITALS: BP 159/66
[2020-04-01] MEDS: CLOPIDOGREL 75 MG TAB PO SCH (21:26)
[2020-04-01] MEDS: ATORVASTATIN 20 MG TAB PO SCH (21:27)
[2020-04-01 22:00] VITALS: BP 156/61
[2020-04-02] MEDS: HEPARIN SOD (PORCINE) 5000UNITS/ML 1ML VIAL/SYRINGE SC SCH (05:48)
[2020-04-02 06:00] VITALS: BP 166/68
[2020-04-02 06:46] LABS: BASO # 0.1 10^3/uL (0.0-0.2); BASO % 0.7 % (0.0-1.0); EOS # 0.1 10^3/uL (0.0-0.5); EOS % 1.4 % (0.0-3.0); HEMATOCRIT 27.7 % (36.0-47.0); HEMOGLOBIN 8.2 g/dl (12.0-15.5); LYMPH # 1.9 10^3/uL (1.5-5.0); MEAN CORPUSCULAR HEMOGLOBIN 26.7 pg (27.0-33.0); MEAN CORPUSCULAR HGB CONC 29.6 g/dl (32.0-36.5); MEAN CORPUSCULAR VOLUME 90.2 fl (80.0-96.0); MONO # 0.8 10^3/uL (0.0-0.8); MONO % 8.4 % (0.0-5.0); NEUTROPHILS # 6.2 10^3/uL (1.5-8.5); NEUTROPHILS % 67.4 % (36.0-66.0); PLATELET COUNT, AUTOMATED 250 10^3/uL (150-450); RED BLOOD COUNT 3.07 10^6/uL (4.00-5.40); WHITE BLOOD COUNT 9.2 10^3/uL (4.0-10.0)
[2020-04-02 07:06] LABS: C REACTIVE PROTEIN QUANTITATIV 1.05 MG/DL (0.00-0.30); CALCIUM LEVEL 8.6 MG/DL (8.8-10.2); CREATININE FOR GFR 1.51 MG/DL (0.55-1.30); GLOMERULAR FILTRATION RATE 36.1 (>39); MAGNESIUM LEVEL 2.2 MG/DL (1.8-2.4); POTASSIUM SERUM 5.2 MEQ/L (3.5-5.1)
[2020-04-02] MEDS ORDERED: CEFD300CAP PO (08:48)
[2020-04-02] MEDS: SPIRONOLACTONE 25 MG TAB PO SCH (08:59)
[2020-04-02] MEDS: SENOKOT S TAB PO SCH (08:59)
[2020-04-02] MEDS: CALCITRIOL 0.25 MCG CAP (S0169) PO SCH (08:59)
[2020-04-02] MEDS: MEGESTROL 400MG 10ML SUSP ORAL SYRINGE *DRAW UP EXACT DOSE PO SCH (08:59)
[2020-04-02] MEDS: FLUoxetine 10 MG CAP PO SCH (09:00)
[2020-04-02] MEDS: HumaLOG INSULIN (NovoLOG) PER UNIT SC SCH ×2 (09:00→12:00)
[2020-04-02] MEDS: ASPIRIN 81 MG ENTERIC TAB PO SCH (09:00)
[2020-04-02] MEDS: FERROUS SULFATE 325MG TAB PO SCH (09:00)
[2020-04-02] MEDS: PANTOPRAZOLE 40MG TAB (PROTONIX) PO SCH (09:00)
[2020-04-02] MEDS: TORSEMIDE 20 MG TAB PO SCH (09:00)
[2020-04-02 09:03] VITALS: BP 186/88
[2020-04-02] MEDS: LEVEMIR (INSULIN DETEMIR) 1 UNITS/0.01ML SC SCH (09:03)
[2020-04-02] MEDS: CARVedilol 6.25 MG TAB PO SCH (09:03)
[2020-04-02] MEDS: **hydrALAZINE** 50 MG TAB PO SCH (09:03)
[2020-04-02] MEDS: ISOSORBIDE DIN. (ISORDIL) 20 MG TAB PO SCH (09:03)
[2020-04-02] MEDS: CEFDINIR 300 MG CAP (OMNICEF) PO SCH (09:05)
--- NOTE | 2020-04-02 10:56 | DS.PDOC ---
Discharge Summary General Date of Admission Mar 27, 2020 at 21:37 Date of Discharge 04/02/2020 Primary Care Physician: SERGO JENKINS DO Attending Physician: EARLINE BARRIENTOS MD Discharge Summary PROCEDURES PERFORMED DURING STAY: None. ADMITTING DIAGNOSES: 1. Cellulitis / Pressure ulcer 2. Type 2 Diabetes Mellitus 3. Normocytic anemia 4. Dementia 5. HTN 6. DLP 7. Suspected CHF/heart disease 8. CKD stage 3 9. Vitamin D deficiency 10. Depression 11. GERD DISCHARGE DIAGNOSES: 1. Pressure ulcer with surrounding cellulitis 2. Reactivation of charcot's foot 3. Type 2 Diabetes Mellitus 4. Normocytic anemia 5. Dementia 6. HTN 7. DLP 8. Suspected CHF/heart disease 9. CKD stage 3 10. Vitamin D deficiency 11. Depression 12. GERD COMPLICATIONS/CHIEF COMPLAINT: Cellulitis Of Right Foot. HISTORY OF PRESENT ILLNESS: 74-year-old female with a PMHx of Demen tia, HTN, IDDM2, DLP, Suspected CHF, Suspected heart disease?, CKD3, Iron deficiency, Vitamin D deficiency, Depression, GERD, who is presented to the emergency room, sent in by her primary care provider, Dr. Jenkins from [facility] for suspected right foot infection. Patient was sent to the emergency room from [facility] for what was reported as failure of outpatient management of cellulitis. Currently patient has an ulcer of her right foot. There is no documentation to suggest patient has recently been on antibiotics. Patient is a poor historian and the majority of the history has been collected from the medical record. Her son, Doe Rodriguez ([phone]) was contacted as well to further discuss the patient's care. In the ED, the patient was complaining of right foot and leg tenderness and redness. Patient had a dark, ulceration of the back of her right ankle. Patient denied any chest pain, shortness of breath, palpitations, nausea, vomiting, abdominal pain, diarrhea, or urinary discomfort. HOSPITAL COURSE: Patient was admitted to the hospitalist service for further workup and treatment. Patient was started on IV zosyn for antibiotic coverage of cellulitis with possible osteomyelitis. Imaging including MRI of the foot to further evaluated possible osteomyelitis was performed, results below. Podiatry was consulted and felt this was not a case of osteomyelitis but rather a pressure ulcer with an eschar as well as reactivation of charcot's foot. The patient was managed conservatively with an offloading boot and nonweightbearing status. Antibiotic coverage was switched to oral with cefdinir to complete a 10 day course. The patient was also found to be anemic below her baseline of Hg level 9-10. Blood transfusion was considered but ultimately not give as her Hg remained stable above 7. The patient's infection improved and she was able to be discharged back to [facility] to complete the course of oral antibiotics. She should follow up outpatient with Dr. Hamilton for further management of her pressure ulcer and charcot's foot. DISCHARGE MEDICATIONS: Please see below. ALLERGIES: Please see below. PHYSICAL EXAMINATION ON DISCHARGE: VITAL SIGNS: Please see below. GENERAL: Alert, comfortable, in no acute distress HEENT: Normocephalic, atraumatic, EOMI, moist mucous membranes CARDIOVASCULAR: Regular rate and rhythm, normal S1 and S2. No murmurs, rubs, or gallops RESPIRATORY: Clear to auscultation bilaterally with equal air entry bilaterally. No wheezing, rhonchi, or rales. ABDOMEN: Obese, soft, nontender, nondistended, bowel sounds present EXTREMITIES: Pulses 2+/4 in bilateral upper and lower extremities. Right foot is nontender with nonpitting edema in the ankle with trace pretibial edema. SKIN: Erythema over the right foot extending to the mid anterior calf NEUROLOGIC: No focal deficits appreciated PSYCHIATRIC: Mood and affect appropriate LABORATORY DATA: Please see below. 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 These findings are more pronounced than on the August 22, 2016 prior study. No acute fracture or definite acute erosive changes seen. There is extensive soft tissue swelling. Soft tissue emphysema is suspected laterally. Question ulceration of the skin or gas-forming organism. - Right LE Duplex US No evidence of deep vein thrombosis - Foot MRI 1. There is abnormal morphology of the mid to hindfoot, contributed by neuropathic changes. Patchy marrow edema involving the midfoot, most significant involving the navicular bone. There is significant marrow edema involving the talus and anterior calcaneus as well as the distal tibia and fibula. These findings can be contributed by neuropathic changes although osteomyelitis is also considered. Marrow edema involving the anterior talus and navicular bone has progressed compared to the previous exam. 2. A multiloculated fluid collection is identified lateral to the ankle and adjacent to the peroneal tendons. This measures 5.1 x 0.9 x 1.8 cm and is new compared to the previous exam. Small fluid collections are also visualized medial to the ankle and within the hindfoot. Abscesses are considered. A small band of fluid or swelling is also identified involving the plantar aspect of the hindfoot. Postcontrast sequences recommended. 3. Fracture of the calcaneus is again visualized when correlated with the previous MRI. There is progressive displacement of the fractured posterior calcaneus, which is located posterior to the talus. 4. Stable abnormal morphology of the lateral malleolus, consistent with an ol d fracture. 5. Soft tissue swelling of the foot and ankle visualized. 6. Additional findings described above. PROGNOSIS: Fair ACTIVITY: As tolerated. DIET: Consistent carbohydrate DISCHARGE PLAN/DISPOSITION: Return to [facility] on oral antibiotics, outpatient follow up with podiatry DISCHARGE INSTRUCTIONS: 1. Follow-up with your PCP in 7-10 days 2. Please complete course of antibiotics 3. Please take all medications as prescribed 4. If your symptoms return or your condition worsens, please call your PCP or return to the ED for further evaluation. ITEMS TO FOLLOWUP ON ON OUTPATIENT: 1. Reactivation of Charcot's foot: offloading boot to right foot when at rest with pillows under the leg to keep the foot elevated. CAM boot to right foot when up, nonweightbearing. 2. Right heel pressure ulcer: foam dressing changed every 3-4 days 3. Normocytic anemia: follow up with nephrology if a candidate for EPO or IV iron treatments. DISCHARGE CONDITION: Stable. TIME SPENT ON DISCHARGE: Greater than 35 minutes. Attending attestation: Patient seen and examined independently. Agree with resident's note. Vital Signs/I&Os Vital Signs Date Time Temp Pulse Resp B/P (MAP) Pulse Ox O2 Delivery O2 Flow Rate FiO2 04/02/20 09:03 186/88 04/02/20 06:00 97.3 71 20 95 Room Air I&O- Last 24 Hours up to 6 AM 04/02/20 06:00 Intake Total 2009 ml Output Total 0 ml Balance 2010 ml Laboratory Data Labs 24H Laboratory Tests 2 04/01/20 11:55: Bedside Glucose (Misc Panel) 170H 04/01/20 16:42: Bedside Glucose (Misc Panel) 118H 04/01/20 20:22: Bedside Glucose (Misc Panel) 223H 04/02/20 06:22: Immature Granulocyte % (Auto) 1.1, Neutrophils (%) (Auto) 67.4H, Lymphocytes (%) (Auto) 21.0L, Monocytes (%) (Auto) 8.4H, Eosinophils (%) (Auto) 1.4, Basophils (%) (Auto) 0.7, Neutrophils # (Auto) 6.2, Lymphocytes # (Auto) 1.9, Monocytes # (Auto) 0.8, Eosinophils # (Auto) 0.1, Basophils # (Auto) 0.1, Nucleated Red Blood Cells % (auto) 0.0, Anion Gap 4L, Glomerular Filtration Rate 36.1L, Calcium Level 8.6L, Magnesium Level 2.2, C-Reactive Protein, Quantitative 1.05H CBC/BMP Laboratory Tests 04/02/20 06:22 FSBS Laboratory Tests Test 04/01/20 11:55 04/01/20 16:42 04/01/20 20:22 Range/Units Bedside Glucose (Misc Panel) 170 118 223 83-110 MG/DL Microbiology Microbiology 03/27/20 Blood Culture - Final, Complete NO GROWTH AFTER 5 DAYS 03/27/20 Blood Culture - Final, Complete NO GROWTH AFTER 5 DAYS Discharge Medications Scheduled Aspirin (Aspirin EC) 81 Mg Tab, 81 MG PO DAILY, (Reported) Atorvastatin Calcium (Atorvastatin Calcium) 40 Mg Tablet, 40 MG PO QHS, (Reported) Calcitriol (Calcitriol) 0.25 Mcg Capsule, 0.25 MCG PO DAILY, (Reported) Carvedilol (Carvedilol) 6.25 Mg Tab, 6.25 MG PO BID, (Reported) Cefdinir (Cefdinir) 300 Mg Capsule, 300 MG PO DAILY Clopidogrel Bisulfate (Plavix) 75 Mg Tablet, 75 MG PO QHS, (Reported) Ferrous Sulfate (Ferrous Sulfate) 325 Mg Tab, 325 MG PO DAILY, (Reported) Fluoxetine Hcl (Fluoxetine HCl) 10 Mg Capsule, 30 MG PO DAILY, (Reported) Hydralazine HCl (Hydralazine HCl) 50 Mg Tablet, 50 MG PO TID, (Reported) Insulin Detemir (Levemir Flextouch) 100 Unit/1 Ml Insuln.pen, 40 UNIT SC DAILY, (Reported) STARTING 03/28/2020 AT 0600, WAS TAKING 32 UNITS DAILY PRIOR Insulin Detemir (Levemir Flextouch) 100 Unit/1 Ml Insuln.pen, 20 UNIT SC QHS, (Reported) Insulin NPH Human Isophane (Humulin N Kwikpen) 100 Unit/1 Ml Insuln.pen, 10 UNITS SC DAILY, (Reported) AT NOON Isosorbide Dinitrate (Isosorbide Dinitrate) 20 Mg Tablet, 20 MG PO BID, (Reported) Lanolin Alcohol/Mo/W.pet/[place] (Eucerin Creme) 454 Gm Cream..g., 1 DOSE TOP BID, (Reported) BILATERAL LOWER EXTREMITIES Lidocaine HCl (Aspercreme) 4% Cream..g., 1 DOSE TOP TID, (Reported) APPLY SMALL AMOUNT TO RIGHT KNEE: 0600, 1400, 2100 Megestrol Acetate (Megestrol Acetate) 400 Mg/10 Ml Oral.susp, 10 ML PO BID, (Reported) LAST DAY: 04/10/2020 Nut.tx.imp.renal Fxn,Lac-Reduc (Nepro Carb Steady) 237 Ml Liquid, 240 ML PO PC, (Reported) GIVE AFTER MEALS IF PO INTAKE IS LESS THAN OR EQUAL TO 50% Pantoprazole Sodium (Pantoprazole Sodium) 40 Mg Tablet.dr, 40 MG PO BID, (Reported) 0600, 1999 Sennosides/Docusate Sodium (Senna-S Tablet) 1 Each Tablet, 2 TAB PO BID, (Reported) Spironolactone (Spironolactone) 25 Mg Tablet, 25 MG PO DAILY, (Reported) Torsemide (Torsemide) 20 Mg Tablet, 20 MG PO DAILY, (Reported) Scheduled PRN Acetaminophen (Acetaminophen) 325 Mg Tab, 650 MG PO Q4H PRN for PAIN / FEVER, (Reported) Bisacodyl (Bisacodyl) 10 Mg Supp.rect, 10 MG AR DAILY PRN for CONSTIPATION, ( Reported) Glucagon,Human Recombinant (Glucagon Emergency Kit) 1 Mg Vial, 1 MG IM ASDIRECTED PRN for LOW BLOOD SUGAR, (Reported) Magnesium Hydroxide (Milk of Magnesia) 400 Mg/5 Ml Oral.susp, 400 MG PO DAILY PRN for CONSTIPATION, (Reported) Polyvinyl Alcohol (Artificial Tears) 15 Ml Drops, 1 DROP OU Q2H PRN for DRY EYES, (Reported) Sodium Phosphate,[place]-Dibasic (Enema) 133 Ml Enema, 1 GALO AR DAILY PRN for CONSTIPATION, (Reported) Allergies Coded Allergies: Latex, Natural Rubber (Verified Allergy, Unknown, Rash, 02/21/20) milk (Verified Allergy, Unknown, 02/21/20) GILL CONTRERAS D.O. Apr 02, 2020 10:56 EARLINE BARRIENTOS MD Apr 03, 2020 06:50
== END 2020-04-02 13:31 | DRG 74 ==
LOC: EDSEX 16:58 → M ED 16:58 → EDBD 16:58 → M ED INP 21:37 → ENRESERV 22:32 → M MSPAV 23:55
PROVIDERS: ADMIT Internal Medicine; ATTEND Internal Medicine
DX: E11.610 Type 2 diabetes mellitus with diabetic neuropathic arthropathy (principal); L03.115 Cellulitis of right lower limb; I13.0 Hypertensive heart and chronic kidney disease with heart failure and stage 1 through stage 4 chronic kidney disease, or unspecified chronic kidney disease; N18.30 Chronic kidney disease, stage 3 unspecified; L89.890 Pressure ulcer of other site, unstageable; D50.9 Iron deficiency anemia, unspecified; E11.621 Type 2 diabetes mellitus with foot ulcer; F03.90 Unspecified dementia, unspecified severity, without behavioral disturbance, psychotic disturbance, mood disturbance, and anxiety; E55.9 Vitamin D deficiency, unspecified; I50.9 Heart failure, unspecified; K21.9 Gastro-esophageal reflux disease without esophagitis; Z79.4 Long term (current) use of insulin; Z79.899 Other long term (current) drug therapy; Z79.82 Long term (current) use of aspirin; Z91.040 Latex allergy status; Z91.011 Allergy to milk products; F32.9 Major depressive disorder, single episode, unspecified; E78.5 Hyperlipidemia, unspecified

== ENCOUNTER → 2020-03-27 | Outpatient (REF) | payer MEDICARE, MEDICAID ==
[~2020-03-27] MED LIST changes: +ASPE16CR TOP; +CYAN500T14 PO; -CYAN500T8 PO; +FLUO10CA16 PO; +MEGACE; +MEGE40SU5 PO; +NEPR1LIQ2 PO; +PANT40TA29 PO; +PROTPAK PO
[2020-03-27 13:54] LABS: HEMATOCRIT 28.8 % (36.0-47.0); HEMOGLOBIN 8.3 g/dl (12.0-15.5); MEAN CORPUSCULAR HEMOGLOBIN 26.1 pg (27.0-33.0); MEAN CORPUSCULAR HGB CONC 28.8 g/dl (32.0-36.5); MEAN CORPUSCULAR VOLUME 90.6 fl (80.0-96.0); PLATELET COUNT, AUTOMATED 294 10^3/uL (150-450); RED BLOOD COUNT 3.18 10^6/uL (4.00-5.40); WHITE BLOOD COUNT 11.1 10^3/uL (4.0-10.0)
[2020-03-27 14:16] LABS: BILIRUBIN,TOTAL 0.2 MG/DL (0.2-1.0); C REACTIVE PROTEIN QUANTITATIV 6.3 MG/DL (0.00-0.30); CALCIUM LEVEL 8.6 MG/DL (8.8-10.2); CREATININE FOR GFR 1.77 MG/DL (0.55-1.30); POTASSIUM SERUM 4.7 MEQ/L (3.5-5.1); TOTAL PROTEIN 6.5 GM/DL (6.4-8.2)
[2020-03-27 14:27] LABS: ERYTHROCYTE SEDIMENTATION RATE 126 mm/hr (0-30)
== END ==
PROVIDERS: ATTEND Internal Medicine
DX: R41.82 Altered mental status, unspecified (principal)

== ENCOUNTER → 2020-04-07 | Outpatient (REF) ==
[~2020-04-07] MED LIST changes: +ASPE16CR TOP; +CEFD300CAP PO; +FLUO10CA16 PO; +MEGACE; +MEGE40SU5 PO; +NEPR1LIQ2 PO; +PANT40TA29 PO; +PROTPAK PO
== END ==
PROVIDERS: ATTEND Internal Medicine
DX: Z20.828 Contact with and (suspected) exposure to other viral communicable diseases (principal)

== ENCOUNTER → 2020-04-10 | Outpatient (REF) | payer MEDICARE, MEDICAID ==
[2020-04-10 10:23] LABS: HEMATOCRIT 29.5 % (36.0-47.0); HEMOGLOBIN 8.8 g/dl (12.0-15.5); MEAN CORPUSCULAR HEMOGLOBIN 27.8 pg (27.0-33.0); MEAN CORPUSCULAR HGB CONC 29.8 g/dl (32.0-36.5); MEAN CORPUSCULAR VOLUME 93.4 fl (80.0-96.0); PLATELET COUNT, AUTOMATED 200 10^3/uL (150-450); RED BLOOD COUNT 3.16 10^6/uL (4.00-5.40); WHITE BLOOD COUNT 8.9 10^3/uL (4.0-10.0)
[2020-04-10 10:44] LABS: C REACTIVE PROTEIN QUANTITATIV 0.43 MG/DL (0.00-0.30); CALCIUM LEVEL 9.2 MG/DL (8.8-10.2); CREATININE FOR GFR 1.5 MG/DL (0.55-1.30); ERYTHROCYTE SEDIMENTATION RATE 109 mm/hr (0-30); GLOMERULAR FILTRATION RATE 36.3 (>39); POTASSIUM SERUM 5.2 MEQ/L (3.5-5.1)
== END ==
PROVIDERS: ATTEND Internal Medicine
DX: N18.9 Chronic kidney disease, unspecified (principal)

== ENCOUNTER → 2020-04-11 | Outpatient (REF) ==
[2020-04-11 09:33] LABS: CALCIUM LEVEL 8.4 MG/DL (8.8-10.2); CREATININE FOR GFR 1.99 MG/DL (0.55-1.30); GLOMERULAR FILTRATION RATE 26.2 (>39); POTASSIUM SERUM 5.3 MEQ/L (3.5-5.1)
== END ==
PROVIDERS: ATTEND Internal Medicine
DX: E86.0 Dehydration (principal); Z20.828 Contact with and (suspected) exposure to other viral communicable diseases

== ENCOUNTER → 2020-04-15 | Outpatient (REF) | payer MEDICARE, MEDICAID ==
[2020-04-15 09:32] LABS: CREATININE FOR GFR 1.72 MG/DL (0.55-1.30); POTASSIUM SERUM 4.4 MEQ/L (3.5-5.1)
== END ==
PROVIDERS: ATTEND Internal Medicine
DX: E86.0 Dehydration (principal)

== ENCOUNTER → 2020-04-16 | Outpatient (REF) | payer MEDICARE, MEDICAID ==
[2020-04-16 11:23] LABS: CALCIUM LEVEL 8.9 MG/DL (8.8-10.2); CREATININE FOR GFR 2.05 MG/DL (0.55-1.30); GLOMERULAR FILTRATION RATE 25.3 (>39); POTASSIUM SERUM 4.3 MEQ/L (3.5-5.1)
== END ==
PROVIDERS: ATTEND Internal Medicine
DX: E86.0 Dehydration (principal)

== ENCOUNTER → 2020-04-17 | Outpatient (REF) | payer MEDICAID, MEDICARE ==
[~2020-04-17] MED LIST changes: +AUGM500T34 PO; +BACITAB PO
== END ==
PROVIDERS: ATTEND Internal Medicine
DX: Z20.828 Contact with and (suspected) exposure to other viral communicable diseases (principal)

== ENCOUNTER → 2020-04-18 | Outpatient (REF) | payer MEDICARE, MEDICAID ==
[~2020-04-18] MED LIST changes: -AUGM500T34 PO; -BACITAB PO
[2020-04-18 08:45] LABS: HEMATOCRIT 28.9 % (36.0-47.0); HEMOGLOBIN 8.7 g/dl (12.0-15.5); MEAN CORPUSCULAR HEMOGLOBIN 27.7 pg (27.0-33.0); MEAN CORPUSCULAR HGB CONC 30.1 g/dl (32.0-36.5); PLATELET COUNT, AUTOMATED 163 10^3/uL (150-450); RED BLOOD COUNT 3.14 10^6/uL (4.00-5.40); WHITE BLOOD COUNT 10.2 10^3/uL (4.0-10.0)
== END ==
PROVIDERS: ATTEND Internal Medicine
DX: E86.0 Dehydration (principal)

== ENCOUNTER → 2020-04-23 | Outpatient (REF) ==
[~2020-04-23] MED LIST changes: +AUGM500T34 PO; +BACITAB PO
== END ==
PROVIDERS: ATTEND Internal Medicine
DX: Z20.828 Contact with and (suspected) exposure to other viral communicable diseases (principal)

== ENCOUNTER → 2020-04-24 | Outpatient (REF) | payer MEDICARE, MEDICAID ==
[~2020-04-24] MED LIST changes: -AUGM500T34 PO; -BACITAB PO
[2020-04-24 12:22] LABS: HEMATOCRIT 26.9 % (36.0-47.0); HEMOGLOBIN 7.8 g/dl (12.0-15.5); MEAN CORPUSCULAR HEMOGLOBIN 26.7 pg (27.0-33.0); MEAN CORPUSCULAR VOLUME 92.1 fl (80.0-96.0); PLATELET COUNT, AUTOMATED 181 10^3/uL (150-450); RED BLOOD COUNT 2.92 10^6/uL (4.00-5.40); WHITE BLOOD COUNT 11.4 10^3/uL (4.0-10.0)
[2020-04-24 13:09] LABS: CALCIUM LEVEL 9.1 MG/DL (8.8-10.2); CREATININE FOR GFR 1.5 MG/DL (0.55-1.30); GLOMERULAR FILTRATION RATE 36.3 (>39); POTASSIUM SERUM 5.1 MEQ/L (3.5-5.1)
== END ==
PROVIDERS: ATTEND Physician Assistant
DX: K52.9 Noninfective gastroenteritis and colitis, unspecified (principal)

== ENCOUNTER → 2020-04-25 | Outpatient (REF) | payer MEDICARE, MEDICAID ==
[~2020-04-25] MED LIST changes: +AUGM500T34 PO; +BACITAB PO
[2020-04-25 13:56] LABS: HEMATOCRIT 28.9 % (36.0-47.0); HEMOGLOBIN 8.3 g/dl (12.0-15.5); MEAN CORPUSCULAR HEMOGLOBIN 26.6 pg (27.0-33.0); MEAN CORPUSCULAR HGB CONC 28.7 g/dl (32.0-36.5); MEAN CORPUSCULAR VOLUME 92.6 fl (80.0-96.0); PLATELET COUNT, AUTOMATED 200 10^3/uL (150-450); RED BLOOD COUNT 3.12 10^6/uL (4.00-5.40)
== END ==
PROVIDERS: ATTEND Physician Assistant
DX: D64.9 Anemia, unspecified (principal)

== ENCOUNTER → 2020-04-29 | Outpatient (REF) | payer MEDICARE, MEDICAID | PROVIDERS: ATTEND Internal Medicine | DX: Z20.822 Contact with and (suspected) exposure to COVID-19 (principal) ==

== ENCOUNTER 2020-04-30 11:26 | Inpatient (IN) | payer MEDICARE, MEDICAID ==
[~2020-04-30] VITALS: Ht 152.4 cm; Wt 96.4 kg
[~2020-04-30 11:26] MED LIST changes: -AUGM500T34 PO; -BACITAB PO
--- NOTE | 2020-04-30 12:52 | REP ---
INDICATION: SEPSIS/SHOCK. COMPARISON: Comparison chest x-ray August 25, 2019. TECHNIQUE: Portable upright AP chest radiograph. FINDINGS: The heart is enlarged as before. There is some pleuroparenchymal fibrosis in the left base unchanged. Pulmonary vasculature is cephalized. No pleural effusion or pulmonary edema is seen. No focal infiltrate is observed. No acute bony abnormality.. IMPRESSION: Cardiomegaly. Pleuroparenchymal fibrosis left base. Cephalization. Otherwise no acute disease.. <Electronically signed by Wil Madsen > 04/30/20 [id number]
--- NOTE | 2020-04-30 12:55 | REP ---
INDICATION: SEPSIS/SHOCK. COMPARISON: Comparison right ankle radiographs are from March 27, 2020.. TECHNIQUE: Four views. Portably obtained radiographs. FINDINGS: Four views of the right ankle demonstrate diffuse osteopenia. There is severe periarticular soft tissue swelling about the ankle, particularly medially. This is even more prominent than was seen on the March 27, 2020 study. No definite soft tissue emphysema is seen today and there is no evidence of opaque foreign body. There are advanced neuropathic arthropathy changes in the hindfoot with collapse of the hindfoot and subluxation of the subtalar joint and collapse of the tarsal arch. Extensive vascular calcification is observed. There is chronic periosteal reaction in bulging the distal fibula and to some degree, the distal tibia. No acute bony erosive changes appreciated but it is difficult to exclude osteomyelitis. IMPRESSION: Advanced neuropathic arthropathy changes and chronic periosteal reaction distal tibia and distal fibula. Profound periarticular soft tissue swelling which is more prominent than on prior study. Collapse of the midfoot and hindfoot articulations again seen. Vascular calcification. <Electronically signed by Wil Madsen > 04/30/20 [id number]
--- NOTE | 2020-04-30 12:55 | REP ---
INDICATION: SEPSIS/SHOCK COMPARISON: None. TECHNIQUE: Portable AP and lateral views of the right tibia/fibula. FINDINGS: Osteopenia and degenerative changes are appreciated. There is marked swelling at the ankle with large suspected collection along the medial malleolus. Extensive destructive changes to the distal tibia/fibula and visualized portions of the mid/hindfoot suspicious for underlying trauma and osteomyelitis. IMPRESSION: Significant changes involving the distal aspect of the tibia/fibula and visualized ankle as described above. Findings suspicious for acute/chronic trauma and osteomyelitis. <Electronically signed by Champ Levi > 04/30/20 [id number]
--- NOTE | 2020-04-30 12:58 | REP ---
INDICATION: SEPSIS/SHOCK. COMPARISON: August 22, 2016.. TECHNIQUE: Four views obtained portably. FINDINGS: Four views of the right foot demonstrate an area of pronounced soft tissue swelling in the periarticular soft tissues about the right ankle and midfoot. There does appear to be acute bony erosive change at the tip of the medial malleolus on today's foot radiographs. No no foreign body is seen. Extensive vascular calcification is noted. There is marked diffuse osteopenia. Neuropathic arthropathy is seen in the midfoot and hindfoot with collapse and subluxation of the subtalar joint and the tarsal arch.. . . IMPRESSION: Acute erosive change suspected in the medial malleolar tip surrounded by marked soft tissue swelling suspicious for osteomyelitis possibly in association with soft tissue abscess. Advanced neuropathic arthropathy changes with collapse and subluxation of the hindfoot more pronounced than on the 2017 prior study.. <Electronically signed by Wil Madsen > 04/30/20 [id number]
[2020-04-30 13:10] LABS: BASO # 0.1 10^3/uL (0.0-0.2); BASO % 0.5 % (0.0-1.0); EOS # 0.2 10^3/uL (0.0-0.5); EOS % 1.5 % (0.0-3.0); HEMATOCRIT 27.9 % (36.0-47.0); HEMOGLOBIN 8.2 g/dl (12.0-15.5); LYMPH # 1.6 10^3/uL (1.5-5.0); LYMPH % 14.7 % (24.0-44.0); MEAN CORPUSCULAR HEMOGLOBIN 27.5 pg (27.0-33.0); MEAN CORPUSCULAR HGB CONC 29.4 g/dl (32.0-36.5); MEAN CORPUSCULAR VOLUME 93.6 fl (80.0-96.0); MONO # 0.8 10^3/uL (0.0-0.8); NEUTROPHILS # 8.3 10^3/uL (1.5-8.5); NEUTROPHILS % 75.1 % (36.0-66.0); PLATELET COUNT, AUTOMATED 201 10^3/uL (150-450); RED BLOOD COUNT 2.98 10^6/uL (4.00-5.40); WHITE BLOOD COUNT 11.1 10^3/uL (4.0-10.0)
[2020-04-30 13:30] LABS: INR 1.21; PROTHROMBIN TIME 15.6 SECONDS (12.5-14.3)
[2020-04-30 13:31] LABS: PARTIAL THROMBOPLASTIN TIME 34.2 SECONDS (24.2-38.5)
[2020-04-30 13:47] LABS: ALBUMIN 1.7 GM/DL (3.2-5.2); ALT/SGPT 20 U/L (12-78); AMYLASE 26 U/L (25-115); BILIRUBIN,DIRECT < 0.1 MG/DL (0.0-0.2); BILIRUBIN,TOTAL 0.2 MG/DL (0.2-1.0); BLOOD UREA NITROGEN 60 MG/DL (7-18); C REACTIVE PROTEIN QUANTITATIV 8.35 MG/DL (0.00-0.30); CALCIUM LEVEL 8.5 MG/DL (8.8-10.2); CARBON DIOXIDE LEVEL 21 MEQ/L (21-32); CHLORIDE LEVEL 112 MEQ/L (98-107); CK-MB VALUE MASS < 1.0 NG/ML (<3.6); CPK CREATINE PHOSPHOKINASE 16 U/L (26-192); CREATININE FOR GFR 1.61 MG/DL (0.55-1.30); GLOMERULAR FILTRATION RATE 33.5 (>39); GLUCOSE, FASTING 252 MG/DL (70-100); MB/CK RELATIVE INDEX 6.25 (< OR =4); POTASSIUM SERUM 4.7 MEQ/L (3.5-5.1); SODIUM LEVEL 140 MEQ/L (136-145); TOTAL PROTEIN 5.8 GM/DL (6.4-8.2); TROPONIN I < 0.02 NG/ML (< 0.10)
[2020-04-30 13:52] LABS: RSV AMPLIFICATION NEGATIVE (NEGATIVE)
[2020-04-30] MEDS ORDERED: GLUCOSE 4GM CHEW TABLET PO PRN (15:00)
[2020-04-30] MEDS ORDERED: DEXTROSE 50% 50 ML SYRINGE IV PRN (15:00)
[2020-04-30] MEDS ORDERED: GLUCAGON INJ 1MG VIAL SC PRN (15:00)
[2020-04-30] MEDS ORDERED: VANCOMYCIN HCL 2,000 MG in D5W 500 ML IV ONE (15:00)
[2020-04-30] MEDS ORDERED: VANCOMYCIN HCL 1,000 MG, VIAL MATE ADAPTER 1 EACH in D5W 250 ML IV ONE ×6 (15:00)
--- NOTE | 2020-04-30 17:40 | ECGEPIP ---
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
--- NOTE | 2020-04-30 18:01 | HPEPDOC ---
[facility] Medical History & Physical Date of Admission Apr 30, 2020 Date of Service: Apr 30, 2020 Attending Physician: ANNE WHEELER MD History and Physical CHIEF COMPLAINT: R foot/ankle worsening redness and swelling per long term HISTORY OF PRESENT ILLNESS: 74-year-old W with a PMHx of Dementia, HTN, IDDM2, HLD, HFpEF, CKD3, Iron deficiency, Vitamin D deficiency, Depression, GERD, who was recently admitted from [facility] for suspected right foot infection in early 03/2020 after f nicole outpatient management of cellulitis with an ulcer of her right foot and was initially placed on IV zosyn for cellulitis with possible osteomyelitis, and podiatry (Dr. Hamilton) was consulted and felt this was not a case of osteomyelitis but rather a pressure ulcer with an eschar as well as reactivation of charcot's foot and she was managed conservatively with an offloading boot and nonweightbearing status and she completed a 10d course with cefdinir. She returns now with unremitting and actually interval worsening or R foot and ankle redness and swelling with reported pain, now entirely bedbound since this pain started, without fever, chills, recent trauma, as well as no recent history of chest pain, cough, dyspnea, palpitations, congestion, rhinorrhea or sick contacts. In the ED she arrived HDS, afebrile and breathing comfortably on room air. Work up was notable for leukocytosis to 11.1, Hgb 8.2 at recent baseline, platelets 201, Na 140, K 4.7, Cr 1.61 at recent baseline, R ankle XR that showed severe periarticular soft tissue swelling about the ankle, particularly medially that is more prominent than was seen on the March 27, 2020 study without tissue emphysema as well as advanced neuropathic arthropathy changes in the hindfoot with collapse of the hindfoot and subluxation of the subtalar joint and collapse of the tarsal arch with extensive vascular calcification, without acute bony erosive changes appreciated but it was difficult to exclude osteomyelitis, with an XR of the R foot showed acute erosive change suspected in the medial malleolar tip surrounded by marked soft tissue swelling suspicious for osteomyelitis possibly in association with soft tissue abscess and XR of the R tib/fib showed marked swelling at the ankle with large suspected collection along the medial malleolus and extensive destructive changes to the distal tibia/fibula and visualized portions of the mid/hindfoot suspicious for underlying trauma and osteomyelitis. Dr. Olvera (ED) spoke with Dr. Hamilton who recommended consultation with orthopedics given location of the findings. Dr. Butcher saw Ms. Rodriguez in the ED and performed a bedside I&D and she was empirically started on vancomycin given recent +MRSA. She is now being admitted to medicine with orthopedics and ID consulted. Past Medical History: Dementia HTN IDDM2 HLD HFpEF CKD3 Iron deficiency Vitamin D deficiency Depression GERD Past Surgical History: Right ankle surgery Hysterectomy L breast biopsy L great toe surgery Appendectomy Allergies: See below Medications: See below Family History: DM: Mother, Father, Sister, Daughter CAD: Mother, Father Cancer: Sister Social History: No use of alcohol, tobacco or illicit drugs No recent travel or sick contacts Lives at [facility] Review of Systems: 10 point review of systems complete, all negative otherwise stated in HPI Physical exam: Vitals: HDS, afebrile, stable on room air General: Lying in bed, No acute distress, speaking in full sentences HEENT: NCAT, PERRLA, EOMI, MMM CVS: RRR, +S1S2, no m/r/g Lungs: Fair air entry bilaterally, no wheezing, rales or rhonchi Abdomen: Soft, non-distended, non-tender, normoactive sounds, obese Extremities: LLE without edema s/p some digit amputations and with Charcot'd deformities. RLE with bandage at ankle and heel, with erythema that appears stable [facility] circumferentially. No calf tenderness. Neuro: No focal motor or sensory deficit, no facial droop, speech without dysarthria Labs and Imaging: summarized above 03/27 R Foot MRI: 1. There is abnormal morphology of the mid to hindfoot, contributed by neuropathic changes. Patchy marrow edema involving the midfoot, most significant involving the navicular bone. There is significant marrow edema involving the talus and anterior calcaneus as well as the distal tibia and fibula. These findings can be contributed by neuropathic changes although osteomyelitis is also considered. Marrow edema involving the anterior talus and navicular bone has progressed compared to the previous exam. 2. A multiloculated fluid collection is identified lateral to the ankle and adjacent to the peroneal tendons. This measures 5.1 x 0.9 x 1.8 cm and is new compared to the previous exam. Small fluid collections are also visualized medial to the ankle and within the hindfoot. Abscesses are considered. A small band of fluid or swelling is also identified involving the plantar aspect of the hindfoot. Postcontrast sequences recommended. 3. Fracture of the calcaneus is again visualized when correlated with the previous MRI. There is progressive displacement of the fractured posterior calcaneus, which is located posterior to the talus. 4. Stable abnormal morphology of the lateral malleolus, consistent with an old fracture. 5. Soft tissue swelling of the foot and ankle visualized. 6. Additional findings described above. Assessment: 74-year-old W with a PMHx of Dementia, HTN, IDDM2, HLD, HFpEF, CKD3, Iron deficiency, Vitamin D deficiency, Depression, GERD, who was recently admitted from [facility] for suspected right foot ultimately thought unlikely to have been osteomyelitis but progressive Charcot's with surrounding cellulitis who now presents with interval worsening of R ankle swelling and erythema with imaging now c/w medial malleolar osteomyelitis with an associated abscess. Plan: Medial malleolar osteomyelitis with an associated abscess: - +leukocytosis, XR showing erosive changes at medial malleolus and collection, elevated CRP -orthopedics consulted s/p I&D with pending culture -BCx collected x 2 sets -empiric vancomycin given recent +MRSA -ID consulted -repeat MRSA PCR -ESR, CRP IDDM: -Will start ISS AC/HS -Will c/w levemir daily instead of NPH daily -hypoglycemia protocol -FSBG AC/HS Chronic normocytic anemia -History of Iron deficiency -Hg is at baseline -No evidence of bleeding -c/w Ferrous sulfate Dementia -Appears to be at baseline, [facility] HTN -Continue Carvedilol, Hydralazine, Isosorbide dinitrate, Torsemide, Spironolactone HLD -c/w ASA, Plavix, Carvedilol and Atorvastatin HFpEF -c/w home Torsemide / Spironolactone Suspected heart disease? - c/w ASA and lipitor CKD3 - Baseline creatinine of 1.7-2.0 - Creatinine at baseline Vitamin D deficiency - c/w Calcitriol Depression - c/w Fluoxetine GERD - c/w Protonix DVT prophylaxis - Will start Heparin Code status: - DNR / DNI Vital Signs Vital Signs Date Time Temp Pulse Resp B/P (MAP) Pulse Ox O2 Delivery O2 Flow Rate FiO2 04/30/20 16:45 66 20 152/66 (94) 96 Room Air 04/30/20 11:41 97.8 Laboratory Data Labs 24H Laboratory Tests 2 04/30/20 12:39: Immature Granulocyte % (Auto) 1.2, Neutrophils (%) (Auto) 75.1H, Lymphocytes (%) (Auto) 14.7L, Monocytes (%) (Auto) 7.0H, Eosinophils (%) (Auto) 1.5, Basophils (%) (Auto) 0.5, Neutrophils # (Auto) 8.3, Lymphocytes # (Auto) 1.6, Monocytes # (Auto) 0.8, Eosinophils # (Auto) 0.2, Basophils # (Auto) 0.1, Nucleated Red Blood Cells % (auto) 0.0, Prothrombin Time 15.6H, Prothromb Time International Ratio 1.21, Activated Partial Thromboplast Time 34.2, Anion Gap 7L, Glomerular Filtration Rate 33.5L, Lactic Acid Level 0.9, Calcium Level 8.5L, Total Bilirubin 0.2, Direct Bilirubin < 0.1, Aspartate Amino Transf (AST/SGOT) 9, Alanine Aminotransferase (ALT/SGPT) 20, Alkaline Phosphatase 80, Total Creatine Kinase 16L, Creatine Kinase MB < 1.0, Creatine Kinase MB Relative Index 6.25H, Troponin I < 0.02, C-Reactive Protein, Quantitative 8.35H, Total Protein 5.8L, Albumin 1.7L, Albumin/Globulin Ratio 0.4L, Amylase Level 26 04/30/20 12:46: Coronavirus (COVID-19)(PCR) NEGATIVE, Influenza Type A (RT-PCR) NEGATIVE, I nfluenza Type B (RT-PCR) NEGATIVE, Respiratory Syncytial Virus (PCR) NEGATIVE CBC/BMP Laboratory Tests 04/30/20 12:39 Microbiology Microbiology 04/30/20 Gram Stain, Received Pending 04/30/20 Abscess Culture, Received Pending 04/30/20 Blood Culture, Received Pending 04/30/20 Blood Culture, Received Pending Home Medications Scheduled Aspirin (Aspirin EC) 81 Mg Tab, 81 MG PO DAILY Atorvastatin Calcium (Atorvastatin Calcium) 40 Mg Tablet, 40 MG PO QHS Calcitriol (Calcitriol) 0.25 Mcg Capsule, 0.25 MCG PO DAILY Carvedilol (Carvedilol) 6.25 Mg Tab, 6.25 MG PO BID Cefdinir (Cefdinir) 300 Mg Capsule, 300 MG PO DAILY Clopidogrel Bisulfate (Plavix) 75 Mg Tablet, 75 MG PO QHS Ferrous Sulfate (Ferrous Sulfate) 325 Mg Tab, 325 MG PO DAILY Fluoxetine Hcl (Fluoxetine HCl) 10 Mg Capsule, 30 MG PO DAILY Hydralazine HCl (Hydralazine HCl) 50 Mg Tablet, 50 MG PO TID Insulin Detemir (Levemir Flextouch) 100 Unit/1 Ml Insuln.pen, 40 UNIT SC DAILY STARTING 03/28/2020 AT 0600, WAS TAKING 32 UNITS DAILY PRIOR Insulin Detemir (Levemir Flextouch) 100 Unit/1 Ml Insuln.pen, 20 UNIT SC QHS Insulin NPH Human Isophane (Humulin N Kwikpen) 100 Unit/1 Ml Insuln.pen, 10 UNITS SC DAILY AT NOON Isosorbide Dinitrate (Isosorbide Dinitrate) 20 Mg Tablet, 20 MG PO BID Lanolin Alcohol/Mo/W.pet/[place] (Eucerin Creme) 454 Gm Cream..g., 1 DOSE TOP BID BILATERAL LOWER EXTREMITIES Lidocaine HCl (Aspercreme) 4% Cream..g., 1 DOSE TOP TID APPLY SMALL AMOUNT TO RIGHT KNEE: 0600, 1400, 2100 Megestrol Acetate (Megestrol Acetate) 400 Mg/10 Ml Oral.susp, 10 ML PO BID LAST DAY: 04/10/2020 Nut.tx.imp.renal Fxn,Lac-Reduc (Nepro Carb Steady) 237 Ml Liquid, 240 ML PO PC GIVE AFTER MEALS IF PO INTAKE IS LESS THAN OR EQUAL TO 50% Pantoprazole Sodium (Pantoprazole Sodium) 40 Mg Tablet.dr, 40 MG PO BID 0600, 2000 Sennosides/Docusate Sodium (Senna-S Tablet) 1 Each Tablet, 2 TAB PO BID Spironolactone (Spironolactone) 25 Mg Tablet, 25 MG PO DAILY Torsemide (Torsemide) 20 Mg Tablet, 20 MG PO DAILY Scheduled PRN Acetaminophen (Acetaminophen) 325 Mg Tab, 650 MG PO Q4H PRN for PAIN / FEVER Bisacodyl (Bisacodyl) 10 Mg Supp.rect, 10 MG [place] DAILY PRN for CONSTIPATION Glucagon,Human Recombinant (Glucagon Emergency Kit) 1 Mg Vial, 1 MG IM ASDIRECTED PRN for LOW BLOOD SUGAR Magnesium Hydroxide (Milk of Magnesia) 400 Mg/5 Ml Oral.susp, 400 MG PO DAILY PRN for CONSTIPATION Polyvinyl Alcohol (Artificial Tears) 15 Ml Drops, 1 DROP OU Q2H PRN for DRY EYES Sodium Phosphate,[place]-Dibasic (Enema) 133 Ml Enema, 1 GALO [place] DAILY PRN for CONSTIPATION Allergies Coded Allergies: Latex, Natural Rubber (Verified Allergy, Unknown, Rash, 02/21/20) milk (Verified Allergy, Unknown, 02/21/20) A-FIB/CHADSVASC A-FIB History Current/History of A-Fib/PAF?: No Current PO Anticoag Therapy: No Age/Risk Factor Scoring CHADSVASC: CHADSVASC Response (Comments) Value Age Risk Factor Age 65-74 years old 1 Gender Risk Factor Female 1 Hx of CHF Yes 1 Hx of HTN Yes 1 Hx of Stroke/TIA/or VTE No 0 Hx of Diabetes Yes 1 Hx of Vascular Disease Yes 1 Total 6 Treatment Treatment ordered: NONE Reason Anticoagulant not given: Not indicated/[id number] ANNE WHEELER MD Apr 30, 2020 17:31
[2020-04-30] MEDS: HumaLOG INSULIN (NovoLOG) PER UNIT SC SCH ×2 (19:50→21:00)
[2020-04-30] MEDS ORDERED: AUGM500T34 PO (19:56)
[2020-04-30] MEDS ORDERED: BACITAB PO (19:56)
[2020-04-30 21:05] VITALS: BP 179/80
--- NOTE | 2020-04-30 21:23 | CR ---
"CONSULTATION DATE: 04/30/2020 REASON FOR CONSULTATION: Evaluation of right ankle. CHIEF COMPLAINT: Right ankle swelling and abscess. HISTORY OF PRESENT ILLNESS: This is a 74-year-old woman long term resident who presents here for evaluation of some right ankle swelling and redness. She was recently hospitalized a little over a month ago and was followed by Podiatry at that point for similar issues. The patient presents with increasing redness and swelling along the medial aspect of the right ankle. A little bit of drainage has been present. I was asked to evaluate her for this. She is being admitted to the Hospitalist for IV antibiotics. There is some concern about osteomyelitis. The patient is demented and unable to give an appropriate history and we did try to reach family members unsuccessfully to try to talk to them about this. I discussed the case with Dr. Riya Olvera. PAST MEDICAL HISTORY: The patient's past medical history is significant for: 1. Dementia. 2. Hypertension. 3. Diabetes. 4. DLP. 5. Congestive heart failure, possibly. 6. Iron deficiency. 7. Vitamin D deficiency. 8. Depression. 9. Gastroesophageal reflux disease. PAST SURGICAL HISTORY: The patient's past surgical history includes: 1. . 2. Right ankle surgery. REVIEW OF SYSTEMS: The patient's review of systems is otherwise unobtainable. MEDICATIONS: Her medications are listed as: 1. Aspirin. 2. Atorvastatin. 3. Calcitriol. 4. Carvedilol. 5. Plavix. 6. Iron. 7. Fluoxetine. 8. Hydralazine. 9. Levemir. 10. Flex Touch. 11. Insulin. 12. Isosorbide Dinitrate. 13. Lanolin Cream. 14. Pantoprazole. 15. Senna. 16. Spironolactone. 17. Furosemide. 18. Tylenol. 19. Milk of Magnesia. 20. Enema. ALLERGIES: 1. Latex. 2. Milk.| PHYSICAL EXAMINATION: GENERAL APPEARANCE: The patient is alert but disoriented, really in no acute distress. LUNGS: She has non labored breathing. EXTREMITIES: Her right lower extremity demonstrates some chronic redness and inflammation around the foot and ankle with what appears to be a large fluctuant area over the medial aspect of the ankle. She seems to be nontender to this area. There is a small amount of purulent drainage along the superior aspect of this abscess. This fluid collection is probably in the neighborhood of 15 cm in proximal to distal dimensions. She does have some chronic deformity of the foot and ankle and has a history of a Charcot foot as noted in Dr. Hamilton's most recent note from early March. IMAGING DATA: X-rays are reviewed and these show evidence of some chronic arthritic deformities. There appears to be some neuropathic arthropathy. There is some periosteal reaction of the distal tibia and fibula. Significant soft tissue swelling. Foot x-ray shows again, acute erosive changes in the medial malleolar tip, possibly osteomyelitis, possibly soft tissue abscess. Advanced neuropathic changes. IMPRESSION: Likely abscess along the medial aspect of the ankle. I discussed this with the patient, although she has limited understanding and discussed this with the E.R. doctor. RECOMMENDATIONS: I recommended that I try to aspirate and drain this fluid from the medial aspect of the ankle. The patient was in agreement and again, we were unable to reach any family members at this point and decided that this was a relatively urgent problem to try to avoid her getting septic. PROCEDURE NOTE: Under sterile conditions I then aspirated with a #18 gauge needle and was able to draw off 15 or 20 mL of purulent fluid which I placed in a culture tube. A small incision was made and was able to express out probably another 20 or 30 mL of purulent fluid with a little bit of blood. This decompressed the abscess quite nicely. She seemed to be more comfortable afterwards. I then placed a bulky dressing over the medial aspect of the ankle and will have this changed q. 8 hours and on a p.r.n. basis. ASSESSMENT: Right ankle abscess. Patient with longstanding diabetes, may have osteomyelitis. TREATMENT PLAN: 1. Dressing changes as needed to try to see if this improves with IV antibiotics and decompression of the fluid collection. 2. Elevation. 3. Might consider getting an MRI scan if that is possible for her to obtain which may further define this. 4. Would consider getting Vascular Surgery involved to assess her perfusion and to evaluate for possible need for amputation."
[2020-04-30] MEDS: **hydrALAZINE** 50 MG TAB PO SCH (22:29)
[2020-04-30] MEDS: ISOSORBIDE DIN. (ISORDIL) 20 MG TAB PO SCH (22:29)
[2020-04-30] MEDS: ATORVASTATIN 20 MG TAB PO SCH (22:30)
[2020-04-30] MEDS: PANTOPRAZOLE 40MG TAB (PROTONIX) PO SCH (22:30)
[2020-04-30] MEDS: CARVedilol 6.25 MG TAB PO SCH (22:30)
[2020-04-30] MEDS: HEPARIN SOD (PORCINE) 5000UNITS/ML 1ML VIAL/SYRINGE SC SCH (22:32)
[2020-04-30] MEDS: LEVEMIR (INSULIN DETEMIR) 1 UNITS/0.01ML SC SCH (22:32)
[2020-05-01 06:00] VITALS: BP 163/71
[2020-05-01 07:20] LABS: HEMATOCRIT 27.9 % (36.0-47.0); HEMOGLOBIN 8.2 g/dl (12.0-15.5); MEAN CORPUSCULAR HEMOGLOBIN 27.5 pg (27.0-33.0); MEAN CORPUSCULAR HGB CONC 29.4 g/dl (32.0-36.5); MEAN CORPUSCULAR VOLUME 93.6 fl (80.0-96.0); PLATELET COUNT, AUTOMATED 195 10^3/uL (150-450); RED BLOOD COUNT 2.98 10^6/uL (4.00-5.40); WHITE BLOOD COUNT 9.3 10^3/uL (4.0-10.0)
[2020-05-01] MEDS: HumaLOG INSULIN (NovoLOG) PER UNIT SC SCH ×4 (07:30→21:00)
[2020-05-01 07:41] LABS: CALCIUM LEVEL 8.8 MG/DL (8.8-10.2); CREATININE FOR GFR 1.44 MG/DL (0.55-1.30); GLOMERULAR FILTRATION RATE 38.1 (>39); MAGNESIUM LEVEL 2.4 MG/DL (1.8-2.4); POTASSIUM SERUM 4.8 MEQ/L (3.5-5.1)
[2020-05-01 08:04] LABS: ERYTHROCYTE SEDIMENTATION RATE 128 mm/hr (0-30)
--- NOTE | 2020-05-01 09:06 | CR.PDOC ---
General Date of Consultation: May 01, [address] Sherwood HISTORY OF PRESENT ILLNESS: The patient is a 74-year-old female admitted 04/30/20 from [facility] with right foot infection, and medial malleolar abscess. Follows with podiatry, Dr. Hamilton. Patient with history of Charcot foot. Orthopedics was consulted. Vascular surgery is consulted for evaluation of PAD and assess need for possible amputation. ALLERGIES: Please see below. HOME MEDICATIONS: Please see below. PAST MEDICAL HISTORY: Dementia HTN IDDM2 HLD HFpEF CKD3 Iron deficiency Vitamin D deficiency Depression GERD PAST SURGICAL HISTORY: Right ankle surgery Hysterectomy L breast biopsy L great toe surgery Appendectomy FAMILY HISTORY: DM: Mother, Father, Sister, Daughter CAD: Mother, Father Cancer: Sister SOCIAL HISTORY: Resident of [facility]. Nonsmoker. REVIEW OF SYSTEMS: As noted in HPI otherwise 10 point review of systems unremarkable. PHYSICAL EXAMINATION: VITAL SIGNS: Please see below. GENERAL APPEARANCE: NAD HEENT: MMM RESPIRATORY: no wheezes CARDIOVASCULAR: RRR ABDOMEN: soft,NT EXTREMITIES: Left foot with first toe amputation no wounds. Rt foot with large bandage in place, status post aspiration of abscess medial aspect of the ankle 04/30/20 as per orthopedics. Monophasic signal right DP. NEUROLOGICAL: Alert and responsive. X-ray foot IMPRESSION: Acute erosive change suspected in the medial malleolar tip surrounded by marked soft tissue swelling suspicious for osteomyelitis possibly in association with soft tissue abscess. Advanced neuropathic arthropathy changes with collapse and subluxation of the hindfoot more pronounced than on the 2017 prior study.. <Electronically signed by Wil Madsen > 04/30/20 1254 Bilateral lower extremity arterial ultrasound pending. ASSESSMENT/PLAN: 1. right foot infection, and medial malleolar abscess. Status post aspiration of abscess the nail aspect right ankle as per orthopedics. Wound care as per orthopedics. Cultures pending. IV antibiotics as per hospitalist. Previous arterial ultrasound March 2019 with diffuse monophasic waveforms in the right lower extremity, possibly suggestive of more proximal disease. Angiogram was considered 06/15 however it was deferred considering her renal function and at that time her wound had healed. Bilateral lower extremity arterial ultrasound ordered and pending at this time. Further recommendations following review of ultrasound as per Dr. Sherwood. 2. CKD3 Labs 05/01/20 indicates serum creatinine 1.44 with GFR 38.1. The patient's baseline GFR appears to be 25-36. Will need to use caution with any contrast use. Possibly consider nephrology consult for optimization of renal function. Vital Signs/I&O Vital Signs Date Time Temp Pulse Resp B/P (MAP) Pulse Ox O2 Delivery O2 Flow Rate FiO2 05/01/20 06:00 97.2 71 18 163/71 (101) 96 Room Air I&O- Last 24 Hours up to 6 AM 05/01/20 05:59 Intake Total 0 ml Output Total 0 ml Balance 0 ml Laboratory Data Labs 24H Laboratory Tests 2 04/30/20 12:39: Immature Granulocyte % (Auto) 1.2, Neutrophils (%) (Auto) 75.1H, Lymphocytes (%) (Auto) 14.7L, Monocytes (%) (Auto) 7.0H, Eosinophils (%) (Auto) 1.5, Basophils (%) (Auto) 0.5, Neutrophils # (Auto) 8.3, Lymphocytes # (Auto) 1.6, Monocytes # (Auto) 0.8, Eosinophils # (Auto) 0.2, Basophils # (Auto) 0.1, Nucleated Red Blood Cells % (auto) 0.0, Prothrombin Time 15.6H, Prothromb Time International Ratio 1.21, Activated Partial Thromboplast Time 34.2, Anion Gap 7L, Glomerular Filtration Rate 33.5L, Lactic Acid Level 0.9, Calcium Level 8.5L, Total Bilirubin 0.2, Direct Bilirubin < 0.1, Aspartate Amino Transf (AST/SGOT) 9, Alanine Aminotransferase (ALT/SGPT) 20, Alkaline Phosphatase 80, Total Creatine Kinase 16L, Creatine Kinase MB < 1.0, Creatine Kinase MB Relative Index 6.25H, Troponin I < 0.02, C-Reactive Protein, Quantitative 8.35H, Total Protein 5.8L, Albumin 1.7L, Albumin/Globulin Ratio 0.4L, Amylase Level 26 04/30/20 12:46: Coronavirus (COVID-19)(PCR) NEGATIVE, Influenza Type A (RT-PCR) NEGATIVE, Influenza Type B (RT-PCR) NEGATIVE, Respiratory Syncytial Virus (PCR) NEGATIVE 04/30/20 16:06: Methicillin-Resist S.aureus DNA PCR DETECTEDA 04/30/20 19:37: Bedside Glucose (Misc Panel) 171H 04/30/20 21:20: Bedside Glucose (Misc Panel) 133H 05/01/20 07:00: Nucleated Red Blood Cells % (auto) 0.0, Anion Gap 5L, Glomerular Filtration Rate 38.1L, Calcium Level 8.8, Magnesium Level 2.4 CBC/BMP Laboratory Tests 04/30/20 12:39 05/01/20 07:00 Microbiology Microbiology 04/30/20 Gram Stain, Received Pending 04/30/20 Abscess Culture, Received Pending 04/30/20 Blood Culture, Received Pending 04/30/20 Blood Culture, Received Pending Allergies Coded Allergies: Latex, Natural Rubber (Verified Allergy, Unknown, Rash, 02/21/20) milk (Verified Allergy, Unknown, 02/21/20) Home Medications Scheduled Amoxicillin/Potassium Clav (Augmentin 500-125 Tablet) 1 Each Tablet, 1 TAB PO BID for 10 Days, (Reported) Aspirin (Aspirin EC) 81 Mg Tab, 81 MG PO DAILY, (Reported) Atorvastatin Calcium (Atorvastatin Calcium) 40 Mg Tablet, 40 MG PO QHS, (R eported) Calcitriol (Calcitriol) 0.25 Mcg Capsule, 0.25 MCG PO DAILY, (Reported) Carvedilol (Carvedilol) 6.25 Mg Tab, 6.25 MG PO BID, (Reported) Cefdinir (Cefdinir) 300 Mg Capsule, 300 MG PO DAILY for 4 Days, #4 Clopidogrel Bisulfate (Plavix) 75 Mg Tablet, 75 MG PO QHS, (Reported) Ferrous Sulfate (Ferrous Sulfate) 325 Mg Tab, 325 MG PO DAILY, (Reported) Fluoxetine Hcl (Fluoxetine HCl) 10 Mg Capsule, 30 MG PO DAILY, (Reported) Hydralazine HCl (Hydralazine HCl) 50 Mg Tablet, 50 MG PO BID, (Reported) Insulin Detemir (Levemir Flextouch) 100 Unit/1 Ml Insuln.pen, 40 UNIT SC DAILY, (Reported) STARTING 03/28/2020 AT 0600, WAS TAKING 32 UNITS DAILY PRIOR Insulin Detemir (Levemir Flextouch) 100 Unit/1 Ml Insuln.pen, 20 UNIT SC QHS, (Reported) Insulin NPH Human Isophane (Humulin N Kwikpen) 100 Unit/1 Ml Insuln.pen, 10 UNITS SC DAILY, (Reported) AT NOON Isosorbide Dinitrate (Isosorbide Dinitrate) 20 Mg Tablet, 20 MG PO BID, (Reported) L.acidoph/L.bulg/B.bif/S.therm (Bacid Caplet) 1 Each Tablet, 1 TAB PO DAILY, (Reported) Lanolin Alcohol/Mo/W.pet/[place] (Eucerin Creme) 454 Gm Cream..g., 1 DOSE TOP BID, (Reported) BILATERAL LOWER EXTREMITIES Lidocaine HCl (Aspercreme) 4% Cream..g., 1 DOSE TOP TID, (Reported) APPLY SMALL AMOUNT TO RIGHT KNEE: 0600, 1400, 2100 Nut.tx.imp.renal Fxn,Lac-Reduc (Nepro Carb Steady) 237 Ml Liquid, 240 ML PO PC, (Reported) GIVE AFTER MEALS IF PO INTAKE IS LESS THAN OR EQUAL TO 50% Pantoprazole Sodium (Pantoprazole Sodium) 40 Mg Tablet.dr, 40 MG PO BID, (Reported) 0600, 2000 Sennosides/Docusate Sodium (Senna-S Tablet) 1 Each Tablet, 2 TAB PO BID, (Reported) Spironolactone (Spironolactone) 25 Mg Tablet, 25 MG PO DAILY, (Reported) Torsemide (Torsemide) 20 Mg Tablet, 20 MG PO DAILY, (Reported) Scheduled PRN Acetaminophen (Acetaminophen) 325 Mg Tab, 650 MG PO Q4H PRN for PAIN / FEVER, (Reported) Bisacodyl (Bisacodyl) 10 Mg Supp.rect, 10 MG [place] DAILY PRN for CONSTIPATION, (Reported) Glucagon,Human Recombinant (Glucagon Emergency Kit) 1 Mg Vial, 1 MG IM ASDIRECTED PRN for LOW BLOOD SUGAR, (Reported) Magnesium Hydroxide (Milk of Magnesia) 400 Mg/5 Ml Oral.susp, 400 MG PO DAILY PRN for CONSTIPATION, (Reported) Polyvinyl Alcohol (Artificial Tears) 15 Ml Drops, 1 DROP OU Q2H PRN for DRY EYES, (Reported) Sodium Phosphate,[place]-Dibasic (Enema) 133 Ml Enema, 1 GALO [place] DAILY PRN for CONSTIPATION, (Reported) Tammy Palafox May 01, 2020 08:17
[2020-05-01] MEDS: CARVedilol 6.25 MG TAB PO SCH ×2 (09:36→21:00)
[2020-05-01] MEDS: **hydrALAZINE** 50 MG TAB PO SCH ×2 (09:36→21:00)
[2020-05-01] MEDS: ISOSORBIDE DIN. (ISORDIL) 20 MG TAB PO SCH ×2 (09:36→21:00)
[2020-05-01] MEDS: PANTOPRAZOLE 40MG TAB (PROTONIX) PO SCH ×2 (09:36→21:00)
[2020-05-01] MEDS: FERROUS SULFATE 325MG TAB PO SCH (09:36)
[2020-05-01] MEDS: TORSEMIDE 20 MG TAB PO SCH (09:37)
[2020-05-01] MEDS: HEPARIN SOD (PORCINE) 5000UNITS/ML 1ML VIAL/SYRINGE SC SCH ×2 (09:37→21:00)
[2020-05-01] MEDS: LEVEMIR (INSULIN DETEMIR) 1 UNITS/0.01ML SC SCH ×2 (09:37→21:00)
[2020-05-01] MEDS: VANCOMYCIN HCL 1,000 MG, VIAL MATE ADAPTER 1 EACH in D5W 250 ML IV SCH (09:38)
[2020-05-01] MEDS: SPIRONOLACTONE 25 MG TAB PO SCH (09:39)
--- NOTE | 2020-05-01 11:37 | REP ---
INDICATION: EVALUATION BLOOD SUPPLY COMPARISON: None. TECHNIQUE: Real time olvera scale and color Doppler evaluation of the bilateral lower extremity arterial vasculature using linear high frequency transducer. FINDINGS: Olvera scale and color images demonstrate extensive bilateral calcified atheromatous changes with areas of 2:1 narrowing bilaterally with diminutive appearance to the vessels. Right lower extremity demonstrates 3:1 stenosis suggested at the popliteal level along with diffuse monophasic arterial wave patterns and with increased diastolic flow which may be secondary to vasogenic changes related to osteomyelitis at the ankle. Left lower extremity demonstrates biphasic arterial wave patterns. Peak systolic velocities (cm/sec) Common femoral artery: Right 117; Left 92 Profunda femoris: Right 64; Left 95 SFA (proximal): Right 85; Left 87-165 SFA (mid): Right 147; Left 83-115 SFA (distal): Right 124; Left 17-74 Popliteal artery: Right 24-41; Left 81 ARMEN (prox.): Right 34; Left 62 Tibioperoneal trunk: Right 22; Left 46 REGULATORY COMPLIANCE DIRECTOR (prox.): Right 48; Left 68 REGULATORY COMPLIANCE DIRECTOR (distal): Right 31; Left 64 ARMEN (distal): Right 37; Left IMPRESSION: Significant atheromatous changes as described above <Electronically signed by Champ Levi > 05/01/20 [id number]
[2020-05-01 14:00] VITALS: BP 161/73
[2020-05-01] MEDS ORDERED: ISOVUE-300 61% 50ML VIAL As Ordered ONE (16:10)
[2020-05-01] MEDS ORDERED: LIDOCAINE 1% MDV 20ML VIAL As Ordered ONE (16:10)
[2020-05-01] MEDS ORDERED: MIDAZOLAM INJ 2MG/2ML VIAL (J2250 PER 1MG) As Ordered ONE (16:12)
[2020-05-01] MEDS ORDERED: fentaNYL 100 MCG/2 ML INJECTION (J3010) As Ordered ONE (16:12)
[2020-05-01] MEDS ORDERED: DEXTROSE 50% 50 ML SYRINGE As Ordered ONE (16:13)
--- NOTE | 2020-05-01 16:32 | IPNPDOC ---
Text Note Date of Service The patient was seen on 05/01/20. NOTE Subjective: -No acute issues overnight Interim events: -Ortho consulted --> s/p R ankle collection I&D --> ortho consulted vascular surgery --> now s/p arterial doppler US of the LE and consented for arteriogram this afternoon with vascular planning for ortho to continue management for evaluation for amputation if indicated. Physical exam: Vitals: HDS, afebrile, stable on room air General: Lying in bed, No acute distress, speaking in full sentences HEENT: NCAT, PERRLA, EOMI, MMM CVS: RRR, +S1S2, no m/r/g Lungs: Fair air entry bilaterally, no wheezing, rales or rhonchi Abdomen: Soft, non-distended, non-tender, normoactive sounds, obese Extremities: LLE without edema s/p some digit amputations and with Charcot's deformities. RLE with bandage at ankle and heel, with stable erythema Neuro: No focal motor or sensory deficit, no facial droop, speech without dysarthria Labs: reviewed Imagin05/01/2020: BILATERAL LOWER EXTREM ARTERIAL: EVALUATION BLOOD SUPPLY FINDINGS: Olvera scale and color images demonstrate extensive bilateral calcified atheromatous changes with areas of 2:1 narrowing bilaterally with diminutive appearance to the vessels. Right lower extremity demonstrates 3:1 stenosis suggested at the popliteal level along with diffuse monophasic arterial wave patterns and with increased diastolic flow which may be secondary to vasogenic changes related to osteomyelitis at the ankle. Left lower extremity demonstrates biphasic arterial wave patterns. Peak systolic velocities (cm/sec) Common femoral artery: Right 117; Left 92 Profunda femoris: Right 64; Left 95 SFA (proximal): Right 85; Left 87-165 SFA (mid): Right 147; Left 83-115 SFA (distal): Right 124; Left 17-74 Popliteal artery: Right 24-41; Left 81 ARMEN (prox.): Right 34; Left 62 Tibioperoneal trunk: Right 22; Left 46 TAILER OUT (prox.): Right 48; Left 68 TAILER OUT (distal): Right 31; Left 64 ARMEN (distal): Right 37; Left IMPRESSION: Significant atheromatous changes as described above Assessment: 74-year-old W with a PMHx of Dementia, HTN, IDDM2, HLD, HFpEF, CKD3, Iron deficiency, Vitamin D deficiency, Depression, GERD, who was recently admitted from [facility] for suspected right foot ultimately thought unlikely to have been osteomyelitis but progressive Charcot's with surrounding cellulitis who now presents with interval worsening of R ankle swelling and erythema with imaging now c/w medial malleolar osteomyelitis with an associated abscess s/p I&D with ongoing vascular supply evaluation by vascular surgery and orthopedics evaluation as well. Plan: Medial malleolar osteomyelitis with an associated abscess: - +leukocytosis, XR showing erosive changes at medial malleolus and collection, elevated CRP -orthopedics consulted s/p I&D with pending culture -BCx collected x 2 sets -continue empiric vancomycin given recent +MRSA, day 2 -ID consulted -vascular supply evaluation ongoing with Dr. Sherwood -orthopedics onboard IDDM: -ISS AC/HS -c/w levemir daily instead of NPH daily -hypoglycemia protocol -FSBG AC/HS Chronic normocytic anemia -History of Iron deficiency -Hg is at baseline -No evidence of bleeding -c/w Ferrous sulfate Dementia -Appears to be at baseline, [facility] HTN -Continue Carvedilol, Hydralazine, Isosorbide dinitrate, Torsemide, Spironolactone HLD -c/w ASA, Plavix, Carvedilol and Atorvastatin HFpEF -c/w home Torsemide / Spironolactone Suspected heart disease? - c/w ASA and lipitor CKD3 - Baseline creatinine of 1.7-2.0 - Creatinine at baseline Vitamin D deficiency - c/w Calcitriol Depression - c/w Fluoxetine GERD - c/w Protonix DVT prophylaxis - Will start Heparin Code status: - DNR / DNI VS,Fishbone, I+O VS, Fishbone, I+O Laboratory Tests 05/01/20 07:00 Vital Signs Date Time Temp Pulse Resp B/P (MAP) Pulse Ox O2 Delivery O2 Flow Rate FiO2 05/01/20 16:00 97.6 67 20 98 Room Air 05/01/20 14:00 161/73 (102) I&O- Last 24 Hours up to 6 AM 05/01/20 06:00 Intake Total 0 ml Output Total 0 ml Balance 0 ml ANNE WHEELER MD May 01, 2020 16:32
--- NOTE | 2020-05-01 17:59 | ROOPDOC ---
[facility] Report Of Operation Report of Operation DATE OF PROCEDURE: 05/01/20 PREPROCEDURE DIAGNOSES: Atherosclerosis the [place] arteries with abscess and infection right ankle POSTPROCEDURE DIAGNOSES: Same PROCEDURE: 1. Ultrasound-guided access left common femoral artery 2. Aortoiliofemoral arteriogram 3. Oblique views iliac arteries 4. Selection right common femoral artery and superficial femoral artery with right lower extremity runoff 5. Balloon expandable stent right external iliac artery 7 x 57 express, proximal extension with 8 x 57 express into common iliac artery proximal 6. Balloon expandable stent left external iliac artery 7 x 57 express, proximal extension with 8 x 57 express into common iliac artery proximal 7. Completion arteriograms 8. Mynx closure left common femoral artery SURGEON: Liberty Sherwood MD ANESTHESIA: Local anesthesia 6 mL lidocaine. Moderate intravenous conscious sedation with supervised by Dr. Sherwood. The patient was independently monitored by registered nurse assigned to the Department of radiology using automated blood pressure, EKG, and pulse oximetry. The detailed sedation record is permanently stored in the hospital information system. The following is a presedation record: Start time 16:53, stop time 17:44, Versed 0.5 mg IV, fentanyl 50 g IV, heparin 2000 units IV. CONTRAST: 44 mL Isovue-300 INDICATION FOR PROCEDURE: This is a very pleasant 74-year-old patient with recent I&D of abscess over the right medial malleolus and suspected osteomyelitis and monophasic flow in the right lower extremity on arterial duplex today. We discussed the risks benefits and alternatives to an arteriogram and potential intervention to help with healing of her infected ankle with the patient, but she is demented thus we also spoke with Eladio Norman, the patient's brother, who gave telephone consent witnessed by our clinic nurse. The patient has a known history of renal insufficiency, but it is actually a little better than it was the last time we saw her, but we will still be very careful and uses minimal contrast as possible to minimize her risk of contrast-induced nephropathy, and give her plenty of IV fluids before during and after the procedure. INTERPRETATION: 1. Aortoiliac segments are heavily calcified and ectatic. The distal aorta is widely patent with good inflow into the common iliac arteries at the proximal aspect. On the right, the common iliac artery narrows and has a focal stenosis of about 60% proximal to hypogastric, and then the external iliac arteries diffusely stenotic and narrow with one focal aspect that is 80% stenotic proximally. On the left, the common iliac artery is stenotic near the origin but not up to it, with between 30-40% stenosis throughout the common iliac artery. The external iliac artery has a 50% focal stenosis as well as some diffuse stenosis in the proximal third. The hypogastric arteries are patent bilaterally. 2. The right common femoral artery is widely patent with good runoff into the profunda and the SFA. Although the SFA is ectatic and a bit diminutive in size, it is patent with rapid flow and no flow limitation from the dictation noted. No significant stenoses noted. There is rapid flow through the popliteal artery which is also widely patent into 3 vessel runoff to the distal foot. There are no flow limitations noted in in the tibial vessels and there is excellent flow to the pedal arches. 3. After balloon expandable stent placement in the right iliac system, there is widely patent flow with no significant residual stenosis, still widely patent inflow into the hypogastric artery, no dissection no extravasation. 4. After balloon expandable stent placement in the left iliac system, there is widely patent flow with no significant residual stenosis, still widely patent inflow into the hypogastric artery, no dissection or extravasation. REPORT OF OPERATION: The patient was brought to the angiographic suite in stable condition. Her bilateral groins were prepped and draped in a sterile fashion. A timeout was performed. Sedation was administered without complication. Local anesthesia was administered to the skin and subcutaneous tissue over the left common femoral artery. Microneedle was used to access the artery under ultrasound guidance. A wire was passed through this access and nail was removed. A 4 [place]alese sheath was placed and flushed with saline. Glidewire and flushing catheter were advanced into the distal aorta. Aortoiliofemoral arteriograms were performed. Please see interpretation above. We then went up and over the bifurcation and selected the proximal right common iliac artery and oblique views of the right iliac system were performed. Please see interpretation above. We then selected the right common femoral and superficial femoral artery and right lower extremity runoff was performed. Please see interpretation above. We then exchange the sheath for 7 x 45 cm destination sheath over the bifurcation and flushed the sheath was saline. A 7 x 57 express stent was deployed from the distal external iliac to the proximal external iliac artery and then extended with a 1 cm overlap to the mid common iliac artery on the right with an 8 x 57 express stent. Following this, there is widely patent flow with no significant residual stenosis, no extravasation, and good flow into the hypogastric in the common femoral. We then retracted the sheath and exchange it for a 7 [place]e short sheath into the left groin. We then deployed a 7 x 57 express stent from the mid external iliac artery into the distal common iliac artery and extended it with a 1 cm overlap with an 8 x 57 express stent up to but not through the origin of the left common iliac artery. Following this, there is widely patent flow through both iliac systems. No significant residual stenosis, no embolization, no extravasation, no dissections. We then deployed a Mynx closure device of the left common femoral artery with good hemostasis. Pressure was held and sterile dressings were applied. The patient was then taken to recovery in stable condition. She tolerated the procedure and the sedation well. ESTIMATED BLOOD LOSS: Approximately 5 mL. COMPLICATIONS: None. PLAN: It is okay for the patient to resume her diet medications and orders per the primary team. She will need flat bed rest for 5 hours postprocedure. Following that she can resume her activities as tolerated. She has more than adequate blood flow to consider wound healing efforts, with brisk 3 vessel runoff to the foot. She will need Plavix for 60 days postprocedure for stents in the iliac vessels. We will start this in the morning. We appreciate the opportunity to participate in the care of this patient. LIBERTY SHERWOOD MD May 01, 2020 17:59
[2020-05-01 18:44] VITALS: BP 155/72
[2020-05-01] MEDS: ATORVASTATIN 20 MG TAB PO SCH (21:00)
[2020-05-01 22:00] VITALS: BP 137/56
[2020-05-02 07:26] LABS: CALCIUM LEVEL 8.8 MG/DL (8.8-10.2); CREATININE FOR GFR 1.4 MG/DL (0.55-1.30); GLOMERULAR FILTRATION RATE 39.4 (>39); POTASSIUM SERUM 4.4 MEQ/L (3.5-5.1)
[2020-05-02] MEDS: HumaLOG INSULIN (NovoLOG) PER UNIT SC SCH ×4 (07:30→21:00)
[2020-05-02] MEDS: LEVEMIR (INSULIN DETEMIR) 1 UNITS/0.01ML SC SCH ×2 (08:54→22:49)
[2020-05-02] MEDS: ISOSORBIDE DIN. (ISORDIL) 20 MG TAB PO SCH ×2 (09:25→22:47)
[2020-05-02] MEDS: CARVedilol 6.25 MG TAB PO SCH ×2 (09:25→22:48)
[2020-05-02] MEDS: CLOPIDOGREL 75 MG TAB PO SCH (09:26)
[2020-05-02] MEDS: SPIRONOLACTONE 25 MG TAB PO SCH (09:26)
[2020-05-02] MEDS: TORSEMIDE 20 MG TAB PO SCH (09:26)
[2020-05-02] MEDS: FERROUS SULFATE 325MG TAB PO SCH (09:26)
[2020-05-02] MEDS: VANCOMYCIN HCL 1,000 MG, VIAL MATE ADAPTER 1 EACH in D5W 250 ML IV SCH (09:26)
[2020-05-02] MEDS: **hydrALAZINE** 50 MG TAB PO SCH ×2 (09:26→22:47)
[2020-05-02] MEDS: PANTOPRAZOLE 40MG TAB (PROTONIX) PO SCH ×2 (09:26→22:48)
[2020-05-02] MEDS: HEPARIN SOD (PORCINE) 5000UNITS/ML 1ML VIAL/SYRINGE SC SCH ×2 (09:26→22:48)
--- NOTE | 2020-05-02 13:09 | IPNPDOC ---
Text Note Date of Service The patient was seen on 05/02/20. NOTE Subjective: -Had LE arteriogram with stents placement yesterday with Dr. Sherwood -No acute issues overnight Objective: Vitals: HDS, afebrile, stable on room air General: Lying in bed, No acute distress, speaking in full sentences HEENT: NCAT, PERRLA, EOMI, MMM CVS: RRR, +S1S2, no m/r/g Lungs: Fair air entry bilaterally, no wheezing, rales or rhonchi Abdomen: Soft, non-distended, non-tender, normoactive sounds, obese Extremities: LLE without edema s/p some digit amputations and with Charcot's deformities. RLE with bandage at ankle and heel, with stable surrounding er ythema Neuro: No focal motor or sensory deficit, no facial droop, speech without dysarthria Labs: reviewed WBC 9.3 Hgb 8.2 Cr 1.4 Imagin05/01/2020: BILATERAL LOWER EXTREM ARTERIAL: EVALUATION BLOOD SUPPLY FINDINGS: Olvera scale and color images demonstrate extensive bilateral calcified atheroma tous changes with areas of 2:1 narrowing bilaterally with diminutive appearance to the vessels. Right lower extremity demonstrates 3:1 stenosis suggested at the popliteal level along with diffuse monophasic arterial wave patterns and with increased diastolic flow which may be secondary to vasogenic changes related to osteomyelitis at the ankle. Left lower extremity demonstrates biphasic arterial wave patterns. Peak systolic velocities (cm/sec) Common femoral artery: Right 117; Left 92 Profunda femoris: Right 64; Left 95 SFA (proximal): Right 85; Left 87-165 SFA (mid): Right 147; Left 83-115 SFA (distal): Right 124; Left 17-74 Popliteal artery: Right 24-41; Left 81 ARMEN (prox.): Right 34; Left 62 Tibioperoneal trunk: Right 22; Left 46 FASHION CONSULTANT (prox.): Right 48; Left 68 FASHION CONSULTANT (distal): Right 31; Left 64 ARMEN (distal): Right 37; Left IMPRESSION: Significant atheromatous changes as described above Assessment: 74-year-old W with a PMHx of Dementia, HTN, IDDM2, HLD, HFpEF, CKD3, Iron deficiency, Vitamin D deficiency, Depression, GERD, PAD, who was recently admitted from [facility] for suspected right foot ultimately thought unlikely to have been osteomyelitis but progressive Charcot's with surrounding cellulitis who now presents with interval worsening of R ankle swelling and erythema with imaging now c/w medial malleolar osteomyelitis with an associated abscess s/p I&D who had vascular evaluation by vascular surgery yesterday with an arteriogram and stents placement and ongoing orthopedics evaluation as well. Plan: Medial malleolar osteomyelitis with an associated abscess: - +leukocytosis, XR showing erosive changes at medial malleolus and collection, elevated CRP -orthopedics consulted s/p I&D growing MRSA -BCx collected x 2 sets, NGTD -continue vancomycin given +MRSA, day 3 -Needs PICC line for prolonged antibiotic therapy. ID consulted. -Had vascular supply evaluation with Dr. Sherwood --> A 7 x 57 express stent was deployed from the distal external iliac to the proximal external iliac artery and then extended with a 1 cm overlap to the mid common iliac artery on the right with an 8 x 57 express stent. Following this, there is widely patent flow with no significant residual stenosis, no extravasation, and good flow into the hypogastric in the common femoral. Also had a 7 x 57 express stent from the mid external iliac artery into the distal common iliac artery and extended it with a 1 cm overlap with an 8 x 57 express stent up to but not through the origin of the left common iliac artery. Following this, there was widely patent flow through both iliac systems. No significant residual stenosis, no embolization, no extravasation, no dissections. -Per vascular surgery she will need Plavix for 60 days postprocedure for stents in the iliac vessels. Starting 05/03 to 07/03/2020 -Abscess is now s/p I&D, on vanc -Osteomylelitis treatment will be 6 weeks in total -Evaluation for potential need for surgical intervention beyong I&D and antibiot ics to be deferred to orthopedics at this time per vascular surgery, as vascular disease is not the main vibratory pile driver of her LE infection at this time per my conversation with Dr. Sherwood. IDDM: -ISS AC/HS -c/w levemir QHS instead of BID with ongoing frequent hypoglycemia -hypoglycemia protocol -FSBG AC/HS Chronic normocytic anemia -History of Iron deficiency -Hg is at baseline -No evidence of bleeding -c/w Ferrous sulfate Dementia -Appears to be at baseline, [facility] HTN -Continue Carvedilol, Hydralazine, Isosorbide dinitrate, Torsemide, Spironolactone HLD -c/w ASA, Plavix, Carvedilol and Atorvastatin HFpEF -c/w home Torsemide / Spironolactone Suspected heart disease? - c/w ASA and lipitor CKD3 - Baseline creatinine of 1.7-2.0 - Creatinine at baseline Vitamin D deficiency - c/w Calcitriol Depression - c/w Fluoxetine GERD - c/w Protonix DVT prophylaxis - Will start Heparin Code status: - DNR / DNI VS,Fishbone, I+O VS, Fishbone, I+O Laboratory Tests 05/02/20 06:27 Vital Signs Date Time Temp Pulse Resp B/P (MAP) Pulse Ox O2 Delivery O2 Flow Rate FiO2 05/01/20 22:00 96.4 61 18 137/56 (83) 96 Room Air 05/01/20 17:54 2 I&O- Last 24 Hours up to 6 AM 05/02/20 06:00 Intake Total 250 ml Output Total 0 ml Balance 250 ml ANNE WHEELER MD May 02, 2020 09:12
[2020-05-02 14:00] VITALS: BP 149/71
[2020-05-02 22:00] VITALS: BP 151/50
[2020-05-02] MEDS: ATORVASTATIN 20 MG TAB PO SCH (22:46)
[2020-05-03 06:00] VITALS: BP 151/49
[2020-05-03] MEDS: HumaLOG INSULIN (NovoLOG) PER UNIT SC SCH ×4 (08:45→21:00)
[2020-05-03] MEDS: PANTOPRAZOLE 40MG TAB (PROTONIX) PO SCH ×2 (08:45→21:00)
[2020-05-03] MEDS: **hydrALAZINE** 50 MG TAB PO SCH ×2 (08:45→21:00)
[2020-05-03] MEDS: HEPARIN SOD (PORCINE) 5000UNITS/ML 1ML VIAL/SYRINGE SC SCH ×2 (08:45→21:00)
[2020-05-03] MEDS: FERROUS SULFATE 325MG TAB PO SCH (08:46)
[2020-05-03] MEDS: ISOSORBIDE DIN. (ISORDIL) 20 MG TAB PO SCH ×2 (08:46→21:00)
[2020-05-03] MEDS: CLOPIDOGREL 75 MG TAB PO SCH (08:46)
[2020-05-03] MEDS: SPIRONOLACTONE 25 MG TAB PO SCH (08:47)
[2020-05-03] MEDS: CARVedilol 6.25 MG TAB PO SCH ×2 (08:47→21:00)
[2020-05-03] MEDS: TORSEMIDE 20 MG TAB PO SCH (08:47)
--- NOTE | 2020-05-03 09:35 | CR ---
CONSULTATION DATE: 05/03/2020 REASON FOR CONSULTATION: I was asked to consult by Dr. Smith for evaluation of a right foot abscess. HISTORY OF PRESENT ILLNESS: Mrs. Rodriguez is a 74-year-old female with a history of chronic Charcot arthropathy of the right foot. The patient was hospitalized in early March with right lower extremity cellulitis and an eschar that was felt to be a pressure sore. She was treated with IV Zosyn followed by ten days of cefdinir. She had an MRI done which was suggestive of Charcot arthropathy with an abscess. Consultation was done by Dr. Hamilton who felt that it as flare-up of Charcot foot and not necessarily an infection. She was advised to be off her right foot, nonweightbearing and she received cefdinir for ten days. She had no fever or chills. Her CRP improved her hospitalization in early March. This hospitalization, she came with a large abscess of the foot which was I&D'd in the emergency room by Dr. Butcher. She had a white count of 11,000 with a hemoglobin of 8.2. The patient has neurology and does not feel much pain in that foot. She states she walks on it but the patient is demented and history is very patchy. She is hard of hearing as well. X-ray done showed right tibia-fibula with marked swelling in the ankle and large suspected collection along the medial malleolus with extensive disruptive changes to the distal tibia and fibula. PAST MEDICAL HISTORY: 1. Dementia. 2. Hypertension. 3. Insulin dependent diabetes. 4. Hyperlipidemia. 5. Heart failure with preserved ejection fraction. 6. Chronic kidney disease. 7. Iron deficiency anemia. 8. Vitamin D deficiency. 9. Depression. 10. Gastroesophageal reflux disease. PAST SURGICAL HISTORY: 1. . 2. Ankle surgery. 3. Hysterectomy. 4. Left breast biopsy. 5. Left big toe amputation. 6. Appendectomy. FAMILY HISTORY: Diabetes and coronary artery disease in her parents. ALLERGIES: LATEX, RUBBER AND MILK. MEDICATIONS: 1. Plavix 75 mg p.o. daily. 2. Ferrous sulfate 325 mg daily. 3. Aldactone 25 mg daily. 4. Torsemide 20 mg daily. 5. Heparin 5000 units subcu q.12 hours. 6. Coreg 6.25 mg p.o. b.i.d. 7. Lipitor 40 mg p.o. q.h.s. 8. Hydralazine 50 mg p.o. b.i.d. 9. Isordil 20 mg p.o. b.i.d. 10. Protonix 40 mg p.o. b.i.d. 11. Levemir 20 units subcu q.h.s. 12. Insulin sliding scale. LABORATORY DATA: The patient is refusing white count. On 04/24, it was 11.4. On 04/25, it was 12 and today it is 9.3. Hemoglobin 8.2, hematocrit 27.9, platelets 195, ESR 128. PT 15.6, PTT 34.2. Wound culture from I&D was positive for MRSA. Sodium 141, potassium 4.4, chloride 115, bicarb 19, BUN 54, creatinine 1.4, glucose 58, calcium 8.8, lactic acid 0.9. MRSA screen was positive. SARS-CoV-2, influenza A and B, RSV negative. Blood cultures, two sets, were negative on 04/30/19. MRSA resistant to clindamycin, resistant to erythromycin, oxacillin. Sensitive to daptomycin, gentamicin, linezolid, Bactrim and doxycycline. IMAGING STUDIES: Right foot x-ray showed significant deformity with Charcot arthropathy worsening, chronic periosteal reaction of the distal tibia and fibula, profound periarticular soft tissue swelling which is worse. Collapse of the mid-foot and hindfoot articulation, worse compared to March 27, vascular calcification. PHYSICAL EXAMINATION: Heart: Normal S1, S2, systolic ejection murmur, II/ of the right upper sternal border. Lungs: Clear, no wheezes, rales or rhonchi. Abdomen: Markedly obese, soft, nontender. Back: No CVA or lumbosacral tenderness. The patient is able to sit up in her bed and feed herself. Extremities: Diminished sensation bilaterally. Trace edema bilaterally. The right foot has Charcot deformity, swelling with significant bloody discharge on the ABD pad. There is a fluctuant mass along the medial malleolus and there is a small incision that was done by Dr. Butcher at the bedside that is oozing a significant amount of blood. There is mild surrounding erythema along the medial malleolus, no tenderness. The patient has no feelings up to the knees. She has onychomycosis x9 thick toenails. Left big toe amputation of the left foot. Description of the MRI showed significant neuropathic changes but also a collection that measures 5.1 x 1.8 cm that was multiloculated along the ankle and peroneal tendons. Other smaller collections were also noted along the ankle and the hindfoot. Fracture of the calcaneus is again visualized when correlated with the previous MRI with progressive displacement of the fractured posterior calcaneus. IMPRESSION: This is a 74-year-old female with chronic Charcot arthropathy of the right foot who has had a superimposed infection since early March with elevated sed rate and abscess that cultured MRSA. The patient probably has an abscess of underlying osteomyelitis probably involving the tibia and fibula. I am not sure how ambulatory this patient is and how aggressive her family wants us to be. Currently she is on appropriate antibiotics with IV vancomycin. She was seen in consultation with Dr. Sherwood who did a balloon angioplasty of both external iliacs, left and right and was started on Plavix. This is the cause of her significant bleeding. Circulation is not an issue but this right ankle seems to be chronically infected and I am not sure whether more surgery would be advised with her age and dementia or just chronic suppressive therapy with oral antibiotics. PLAN: Continue IV vancomycin and we will discuss the case with Dr. Hamilton and Dr. Butcher who have seen the patient prior regarding her options. I would recommend at least six weeks of oral antibiotics, possibly start with linezolid for two weeks followed by doxycycline for another four weeks to avoid side effects of prolonged linezolid use with pancytopenia. If that is not an option, a dose of Dalvance would be another option that could be given as an outpatient prior to patient going back to the [facility] and followed by doxycycline. We will discuss the case with the primary team and with the [facility] as well as her son. FREDA
[2020-05-03] MEDS ORDERED: VANCOMYCIN HCL 1,000 MG, VIAL MATE ADAPTER 1 EACH in D5W 250 ML IV SCH (12:00)
[2020-05-03] MEDS ORDERED: PROHANCE 279.3MG/ML 5ML VIAL As Ordered ONE (12:16)
[2020-05-03] MEDS ORDERED: VANCOMYCIN HCL 500 MG in D5W MINI-BAG PLUS 100 ML IV ONE (13:00)
--- NOTE | 2020-05-03 14:09 | REP ---
INDICATION: r/o infection. Known neuropathic joint disease. Medial soft tissue abscess recently aspirated. COMPARISON: Comparison MRI study of the foot is from March 27, 2020. Comparison radiographs April 30, 2020.. TECHNIQUE: Axial, coronal, and sagittal imaging planes utilized. T1 and T2 weighted scans are obtained in the usual fashion with without fat saturation. Post gadolinium enhanced imaging is acquired with T1 fat-sat imaging in all 3 planes after the intravenous injection of 10 mL of ProHance. FINDINGS: There is severe neuropathic arthropathy of the hindfoot and midfoot with collapse of the subtalar joint and extensive half fragmentation and erosive change as seen radiographically and on prior MRI. The talus is noted medial to rather than cranial to the calcaneus. The fibular tip is between calcaneus and the talus. These findings are unchanged. There is extensive bone marrow signal abnormality associated with neuropathic arthropathy which in addition to the subtalar joint, affects the talonavicular and the navicular 0 cuneiform articulations. Achilles tendon is intact. There is increased signal intensity in thickening of the distal tibialis posterior tendon consistent with tendinitis tendinosis change. There is significant soft tissue swelling medial to the ankle and a complex loculated appearing fluid collection containing low T1 and low T2 signal intensity material is seen in the superficial subcutaneous region. This measures 3.6 by 2.1 x 4.6 cm in dimension. The low T1 low T2 signal intensity material may be blood breakdown products. I cannot exclude osteomyelitis. IMPRESSION: Findings consistent with loculated soft tissue abscess in the medial soft tissues about the ankle. Advanced neuropathic arthropathy. I cannot exclude osteomyelitis. <Electronically signed by Wil Madsen > 05/03/20 [id number]
[2020-05-03] MEDS ORDERED: LIDOCAINE 1% MDV 20ML VIAL As Ordered ONE ×2 (14:29→14:39)
[2020-05-03] MEDS ORDERED: SODIUM BICARBONATE 8.4% INJ 50MEQ 50 ML VIAL As Ordered ONE (14:39)
--- NOTE | 2020-05-03 16:00 | IPN ---
PROGRESS NOTE DATE: 05/03/2020 Derrick is doing fairly well. She had an MRI done this afternoon, ordered by Dr. Butcher, and I reviewed the MRI findings with Dr. Madsen, who felt there was still loculated abscess and a hematoma around the medial ankle. Dr. Butcher had discussed the case with her son and the patient regarding a below-knee amputation versus more conservative measure. Patient does not want to have amputation. I also called Margo Joy, her nurse practitioner who took care of her for the past year. Patient has progressively deteriorated over the past 4 months with this recurrent infection. She was treated at least with three to four courses of antibiotics over the past few months. She never was treated with methicillin-resistant Staphylococcus aureus (MRSA) drugs. PHYSICAL EXAMINATION: She is afebrile. Lying in bed in no acute distress. HEART: Normal S1, S2, regular. No murmurs, rubs, or gallops appreciated. LUNGS: Diminished air entry but clear. No wheezes, rales, or rhonchi. ABDOMEN: Soft, nontender. NO hepatosplenomegaly EXTREMITIES: Lower extremities: No edema. Left big toe amputation. Right lower extremity with Charcot deformity. Very swollen ankle. Medially there is a fluctuant area with surrounding erythema. There is bloody discharge. No tenderness. Patient has decreased sensation to the knee bilateral. Patient had bilateral external iliac stent placed by Dr. Sherwood on May 01. LABORATORY DATA: White count 9.3, hemoglobin 8.2, hematocrit 27.9. ESR 128. Sodium 141, potassium 4.4, chloride 115, bicarbonate 19, BUN 54, creatinine 1.4, glucose 5, calcium 8.8. Wound culture was positive for methicillin-resistant Staphylococcus aureus (MRSA). Blood cultures, two sets, are no growth after 72 hours. MEDICATIONS: Vancomycin intravenous (IV) was at 1 gram every 24, but currently on hold due to elevated trough at 22.3 IMPRESSION: 1. Right foot MRSA abscess with severe Charcot arthropathy and probable underlying osteomyelitis, although this cannot be confirmed with such severe Charcot changes but will be treated as such, as the patient has had chronic infection for the past 3 months. She has refused below-knee amputation, and therefore will treat her with IV antibiotics for 6 weeks and see if there is any improvement before further decisions are made regarding surgery. There is a residual abscess on MRI, reviewed with Dr. Madsen and Dr. Butcher. Dr. Butcher will be ordering interventional ultrasound-guided aspiration of the abscess. 2. Chronic kidney disease. Creatinine 1.4, which is slightly better. Needs to be monitored on vancomycin. 3. Delirium with worsening confusion since this infection. Her primary care provider stated that the patient did not have dementia when she came to the senior living. PLAN: Continue IV vancomycin to keep vancomycin trough between 15-20. Ultrasound-guided aspiration will be scheduled for Wednesday. Please schedule peripherally inserted central catheter (PICC) line. The patient could be treated with IV vancomycin at the senior living for a total of 6 weeks with end of therapy scheduled for June 12. Monitor complete blood count (CBC), basic profile, C-reactive protein (CRP), erythrocyte sedimentation rate (ESR), vancomycin trough at least weekly, and depending on kidney function. MTDD
[2020-05-03 20:54] VITALS: BP 101/51
--- NOTE | 2020-05-03 20:59 | IPNPDOC ---
Date Seen The patient was seen on 05/03/20. Progress Note SUBJECTIVE: Patient was not seen as she was getting her MRI. LABORATORY DATA, IMAGING STUDIES, MICROBIOLOGY: Please see below. ASSESSMENT AND PLAN: 74-year-old female with past medical history of hypertension, diabetes, chronic kidney disease stage III and congestive heart failure is admitted for right foot osteomyelitis with abscess. PROBLEMS: 1. Right foot osteomyelitis with abscess: MRI today, confirming abscess, IR to drain. History of multiple infections treated with antibiotics with underlying Charcot arthropathy. Evaluated by infectious disease, orthopedic surgery and vascular surgery. BKA was offered, patient refused, cultures positive for MRSA, plan to treat with vancomycin for 6 weeks and reassess. 2. Congestive heart failure. Continue home torsemide, spironolactone, Isordil and Coreg. 3. Diabetes mellitus. Continue Levemir with sliding scale insulin coverage with meals and at bed time. 4. Hypertension. Continue hydralazine, Coreg and Isordil 5. Chronic kidney disease. Likely secondary to underlying diabetes mellitus, hypertension and congestive heart failure. Renal function is at baseline. DVT prophylaxis: Heparin subcutaneous VS, I&O, 24H, Fishbone Vital Signs/I&O Vital Signs Date Time Temp Pulse Resp B/P (MAP) Pulse Ox O2 Delivery O2 Flow Rate FiO2 05/03/20 08:45 151/49 05/03/20 06:00 98.7 74 19 97 Room Air 05/01/20 17:54 2 I&O- Last 24 Hours up to 6 AM 05/03/20 06:00 Intake Total 1140 ml Output Total 0 ml Balance 1140 ml Laboratory Data 24H LABS Laboratory Tests 2 05/02/20 21:02: Bedside Glucose (Misc Panel) 230H 05/03/20 08:16: Bedside Glucose (Misc Panel) 141H 05/03/20 13:34: Bedside Glucose (Misc Panel) 102 05/03/20 14:15: Random Vancomycin Level 22.3 Microbiology Microbiology 04/30/20 Gram Stain - Final, Complete 04/30/20 Abscess Culture - Final, Complete Staph.aureus Methicillin Resis 04/30/20 Blood Culture - Preliminary, Resulted No Growth after 72 hours. All specime... 04/30/20 Blood Culture - Preliminary, Resulted No Growth after 72 hours. All specime... BHUMIKA MARC MD May 03, 2020 20:59
[2020-05-03] MEDS: ATORVASTATIN 20 MG TAB PO SCH (21:00)
[2020-05-03] MEDS: LEVEMIR (INSULIN DETEMIR) 1 UNITS/0.01ML SC SCH (21:00)
[2020-05-04 06:21] VITALS: BP 127/68
[2020-05-04] MEDS: HumaLOG INSULIN (NovoLOG) PER UNIT SC SCH ×4 (07:30→21:00)
[2020-05-04 08:43] LABS: CREATININE FOR GFR 1.49 MG/DL (0.55-1.30); GLOMERULAR FILTRATION RATE 36.6 (>39); POTASSIUM SERUM 5.7 MEQ/L (3.5-5.1)
[2020-05-04] MEDS: FERROUS SULFATE 325MG TAB PO SCH (09:11)
[2020-05-04] MEDS: TORSEMIDE 20 MG TAB PO SCH (09:11)
[2020-05-04] MEDS: ISOSORBIDE DIN. (ISORDIL) 20 MG TAB PO SCH ×2 (09:11→21:58)
[2020-05-04] MEDS: SPIRONOLACTONE 25 MG TAB PO SCH (09:11)
[2020-05-04] MEDS: PANTOPRAZOLE 40MG TAB (PROTONIX) PO SCH ×2 (09:11→21:58)
[2020-05-04] MEDS: HEPARIN SOD (PORCINE) 5000UNITS/ML 1ML VIAL/SYRINGE SC SCH ×2 (09:12→21:53)
[2020-05-04] MEDS: **hydrALAZINE** 50 MG TAB PO SCH ×2 (09:12→21:57)
[2020-05-04] MEDS: CLOPIDOGREL 75 MG TAB PO SCH (09:12)
[2020-05-04] MEDS: VANCOMYCIN HCL 750 MG, VIAL MATE ADAPTER 1 EACH in D5W 250 ML IV SCH (09:18)
[2020-05-04] MEDS: CARVedilol 6.25 MG TAB PO SCH ×2 (09:18→21:57)
[2020-05-04] MEDS ORDERED: SOD POLYSTYRENE SULFONATE SUSP 15 GM/60 ML UD PO ONE (13:00)
[2020-05-04 14:00] VITALS: BP 149/63
--- NOTE | 2020-05-04 20:55 | IPNPDOC ---
Date Seen The patient was seen on 05/04/20. Progress Note SUBJECTIVE: Patient is comfortable in bed, without any new complaints at this time. She is confused at times. PHYSICAL EXAMINATION: VITAL SIGNS: Please see below. GENERAL: [No distress] HEENT: [moist mucous membranes] NECK: [Supple] CARDIOVASCULAR EXAMINATION: [S1, S2] RESPIRATORY EXAMINATION: [, Poor air movement] ABDOMINAL EXAMINATION: [Soft, nontender, nondistended, positive bowel sounds] EXTREMITIES: [, No edema, dressing in place over right foot wound] LABORATORY DATA, IMAGING STUDIES, MICROBIOLOGY: Please see below. ASSESSMENT AND PLAN: 74-year-old female with past medical history of hypertension, diabetes, chronic kidney disease stage III and congestive heart failure is admitted for right foot osteomyelitis with abscess. PROBLEMS: 1. Right foot osteomyelitis with abscess: MRI confirming abscess, status post IR drain. History of multiple infections treated with antibiotics with underlying Charcot arthropathy. Evaluated by infectious disease, orthopedic surgery and vascular surgery. BKA was offered, patient refused, cultures positive for MRSA, plan to treat with vancomycin for 6 weeks and reassess. Patient refused PICC line placement on Wednesday, we'll reattempt on Wednesday. 2. Congestive heart failure. Continue home torsemide, Isordil and Coreg. 3. Diabetes mellitus. Continue Levemir with sliding scale insulin coverage with meals and at bedtime. 4. Hypertension. Continue hydralazine, Coreg and Isordil 5. Chronic kidney disease. Likely secondary to underlying diabetes mellitus, hypertension and congestive heart failure. Renal function is at baseline. Hyperkalemic today, Kayexalate 30 g 1, hold spironolactone. DVT prophylaxis: Heparin subcutaneous VS, I&O, 24H, [place] Vital Signs/I&O Vital Signs Date Time Temp Pulse Resp B/P (MAP) Pulse Ox O2 Delivery O2 Flow Rate FiO2 05/04/20 14:00 97.1 69 16 149/63 (91) 96 Room Air 05/01/20 17:54 2 I&O- Last 24 Hours up to 6 AM 05/04/20 06:00 Intake Total 960 ml Balance 960 ml Laboratory Data 24H LABS Laboratory Tests 2 05/03/20 21:08: Bedside Glucose (Misc Panel) 165H 05/04/20 07:46: Anion Gap 8, Glomerular Filtration Rate 36.6L, Calcium Level 8.0L, Random Vancomycin Level 19.0 05/04/20 11:50: Bedside Glucose (Misc Panel) 205H 05/04/20 16:27: Bedside Glucose (Misc Panel) 141H CBC/BMP Laboratory Tests 05/04/20 07:46 Microbiology Microbiology 04/30/20 Gram Stain - Final, Complete 04/30/20 Abscess Culture - Final, Complete Staph.aureus Methicillin Resis 04/30/20 Blood Culture - Preliminary, Resulted No Growth after 72 hours. All specime... 04/30/20 Blood Culture - Preliminary, Resulted No Growth after 72 hours. All specime... BHUMIKA MARC MD May 04, 2020 20:55
[2020-05-04] MEDS: LEVEMIR (INSULIN DETEMIR) 1 UNITS/0.01ML SC SCH (21:53)
[2020-05-04] MEDS: ATORVASTATIN 20 MG TAB PO SCH (21:56)
[2020-05-04 22:00] VITALS: BP 144/65
[2020-05-05 06:00] VITALS: BP 110/71
[2020-05-05] MEDS: HumaLOG INSULIN (NovoLOG) PER UNIT SC SCH ×4 (07:30→20:46)
[2020-05-05] MEDS: PANTOPRAZOLE 40MG TAB (PROTONIX) PO SCH ×2 (09:07→20:51)
[2020-05-05] MEDS: HEPARIN SOD (PORCINE) 5000UNITS/ML 1ML VIAL/SYRINGE SC SCH ×2 (09:07→20:54)
[2020-05-05] MEDS: VANCOMYCIN HCL 750 MG, VIAL MATE ADAPTER 1 EACH in D5W 250 ML IV SCH (09:07)
[2020-05-05] MEDS: CLOPIDOGREL 75 MG TAB PO SCH (09:08)
[2020-05-05] MEDS: **hydrALAZINE** 50 MG TAB PO SCH ×2 (09:08→20:52)
[2020-05-05] MEDS: ISOSORBIDE DIN. (ISORDIL) 20 MG TAB PO SCH ×2 (09:08→20:55)
[2020-05-05] MEDS: FERROUS SULFATE 325MG TAB PO SCH (09:08)
[2020-05-05] MEDS: TORSEMIDE 20 MG TAB PO SCH (09:08)
[2020-05-05] MEDS: CARVedilol 6.25 MG TAB PO SCH ×2 (09:09→20:53)
[2020-05-05 13:05] LABS: HEMATOCRIT 24.9 % (36.0-47.0); HEMOGLOBIN 7.1 g/dl (12.0-15.5); MEAN CORPUSCULAR HEMOGLOBIN 27.1 pg (27.0-33.0); MEAN CORPUSCULAR HGB CONC 28.5 g/dl (32.0-36.5); PLATELET COUNT, AUTOMATED 208 10^3/uL (150-450); RED BLOOD COUNT 2.62 10^6/uL (4.00-5.40); WHITE BLOOD COUNT 7.2 10^3/uL (4.0-10.0)
[2020-05-05 13:25] LABS: CALCIUM LEVEL 7.7 MG/DL (8.8-10.2); CREATININE FOR GFR 1.36 MG/DL (0.55-1.30); GLOMERULAR FILTRATION RATE 40.7 (>39); POTASSIUM SERUM 4.7 MEQ/L (3.5-5.1)
--- NOTE | 2020-05-05 13:54 | IPNPDOC ---
Date Seen The patient was seen on 05/05/20. Progress Note SUBJECTIVE: Patient is comfortable in bed, without any new complaints at this time. PHYSICAL EXAMINATION: VITAL SIGNS: Please see below. GENERAL: No distress HEENT: moist mucous membranes NECK: Supple CARDIOVASCULAR EXAMINATION: S1, S2 RESPIRATORY EXAMINATION: Diminished in the bases ABDOMINAL EXAMINATION: Soft, nontender, nondistended, positive bowel sounds EXTREMITIES: , No edema, dressing in place over right foot wound LABORATORY DATA, IMAGING STUDIES, MICROBIOLOGY: Please see below. ASSESSMENT AND PLAN: 74-year-old female with past medical history of hypertension, diabetes, chronic kidney disease stage III and congestive heart failure is admitted for right foot osteomyelitis with abscess. PROBLEMS: 1. Right foot osteomyelitis with abscess: MRI confirming abscess, status post drainage by IR. History of multiple infections treated with antibiotics with underlying Charcot arthropathy. Evaluated by infectious disease, orthopedic surgery and vascular surgery. BKA was offered, patient refused, cultures positive for MRSA, plan to treat with vancomycin for 6 weeks and reassess. Patient refused PICC line placement on Wednesday, we'll reattempt on Wednesday. 2. Congestive heart failure. Continue home torsemide, Isordil and Coreg. 3. Diabetes mellitus. Continue Levemir with sliding scale insulin coverage with meals and at bedtime. 4. Hypertension. Continue hydralazine, Coreg and Isordil 5. Chronic kidney disease. Likely secondary to underlying diabetes mellitus, hypertension and congestive heart failure. Renal function is at baseline. Hyperkalemia, resolved DVT prophylaxis: Heparin subcutaneous VS, I&O, 24H, Fishbone Vital Signs/I&O Vital Signs Date Time Temp Pulse Resp B/P (MAP) Pulse Ox O2 Delivery O2 Flow Rate FiO2 05/05/20 09:09 70 122/72 05/05/20 06:00 97.9 18 95 Room Air 05/01/20 17:54 2 I&O- Last 24 Hours up to 6 AM 05/05/20 05:59 Intake Total 900 ml Balance 900 ml Laboratory Data 24H LABS Laboratory Tests 2 05/04/20 16:27: Bedside Glucose (Misc Panel) 141H 05/04/20 21:15: Bedside Glucose (Misc Panel) 158H 05/05/20 05:58: Bedside Glucose (Misc Panel) 116H 05/05/20 09:04: Vancomycin Level Trough 19.5 05/05/20 11:24: Bedside Glucose (Misc Panel) 157H 05/05/20 11:52: Nucleated Red Blood Cells % (auto) 0.0, Anion Gap 6L, Glomerular Filtration Rate 40.7, Calcium Level 7.7L CBC/BMP Laboratory Tests 05/05/20 11:52 Microbiology Microbiology 04/30/20 Gram Stain - Final, Complete 04/30/20 Abscess Culture - Final, Complete Staph.aureus Methicillin Resis 04/30/20 Blood Culture - Final, Complete NO GROWTH AFTER 5 DAYS 04/30/20 Blood Culture - Final, Complete NO GROWTH AFTER 5 DAYS BHUMIKA MARC MD May 05, 2020 13:54
[2020-05-05 14:00] VITALS: BP 112/69
[2020-05-05] MEDS: ATORVASTATIN 20 MG TAB PO SCH (20:51)
[2020-05-05] MEDS: LEVEMIR (INSULIN DETEMIR) 1 UNITS/0.01ML SC SCH (20:54)
[2020-05-05 22:00] VITALS: BP 154/62
[2020-05-06 06:00] VITALS: BP 111/72
[2020-05-06] MEDS: TORSEMIDE 20 MG TAB PO SCH (08:25)
[2020-05-06] MEDS: HumaLOG INSULIN (NovoLOG) PER UNIT SC SCH ×4 (08:25→21:00)
[2020-05-06] MEDS: PANTOPRAZOLE 40MG TAB (PROTONIX) PO SCH ×3 (08:25→21:38)
[2020-05-06] MEDS: FERROUS SULFATE 325MG TAB PO SCH (08:25)
[2020-05-06] MEDS: CLOPIDOGREL 75 MG TAB PO SCH (08:25)
[2020-05-06] MEDS: CARVedilol 6.25 MG TAB PO SCH ×3 (08:26→21:40)
[2020-05-06] MEDS: ISOSORBIDE DIN. (ISORDIL) 20 MG TAB PO SCH ×3 (08:26→21:39)
[2020-05-06] MEDS: HEPARIN SOD (PORCINE) 5000UNITS/ML 1ML VIAL/SYRINGE SC SCH ×2 (08:26→21:38)
[2020-05-06] MEDS: **hydrALAZINE** 50 MG TAB PO SCH ×3 (08:26→21:39)
[2020-05-06 08:45] LABS: HEMATOCRIT 26.6 % (36.0-47.0); HEMOGLOBIN 7.6 g/dl (12.0-15.5); MEAN CORPUSCULAR HEMOGLOBIN 27.2 pg (27.0-33.0); MEAN CORPUSCULAR HGB CONC 28.6 g/dl (32.0-36.5); MEAN CORPUSCULAR VOLUME 95.3 fl (80.0-96.0); PLATELET COUNT, AUTOMATED 195 10^3/uL (150-450); RED BLOOD COUNT 2.79 10^6/uL (4.00-5.40); WHITE BLOOD COUNT 7.1 10^3/uL (4.0-10.0)
[2020-05-06 09:19] LABS: CALCIUM LEVEL 8.1 MG/DL (8.8-10.2); CREATININE FOR GFR 1.53 MG/DL (0.55-1.30); GLOMERULAR FILTRATION RATE 35.5 (>39); POTASSIUM SERUM 4.7 MEQ/L (3.5-5.1); VANCOMYCIN LEVEL TROUGH 21.4 UG/ML (10.0-20.0)
--- NOTE | 2020-05-06 10:51 | IPN ---
PROGRESS NOTE DATE: 05/06/2020 SUBJECTIVE: Derrick is seen while I am rounding for the Hospitalist. She has been uncooperative with getting a PICC line in or having aspiration of her joint. She is anemic but is declining blood transfusions today. She denies shortness of breath or chest pain. She says she just wants to go home. PHYSICAL EXAMINATION: VITAL SIGNS: Blood pressure 111/72, afebrile. GENERAL: Alert, conversant, in no distress. She is uncooperative with exam. LUNGS: Clear. HEART: Regular rhythm. ABDOMEN: Soft, nontender. EXTREMITIES: Foot is dressed. LABORATORY DATA: Hemoglobin 7.6, up from 7.1 yesterday. Creatinine is 1.5. Blood sugar is 230. IMPRESSION: 1. Osteomyelitis of her right foot with abscess. Patient declined aspiration. She is apparently going down today, they are going to try it again. She also needs a PICC line for Vancomycin which she will need for six weeks. 2. Diabetes, increase Levemir dose, blood sugars are elevated. Continue sliding scale insulin. 3. Anemia, probably secondary to chronic kidney disease and her current inflammatory state. She is declining transfusion. Hemoglobin is up slightly from yesterday, there is no active bleeding. If hemoglobin drops below 7 she should reconsider transfusion. The risks of not having adequate oxygenation reviewed with the patient. 4. CHF, stable on her current regimen. 5. She will probably need placement upon discharge.
[2020-05-06] MEDS ORDERED: LORazepam 1 MG TAB PO ONE (11:30)
[2020-05-06] MEDS ORDERED: LIDOCAINE 1% MDV 20ML VIAL As Ordered ONE ×2 (12:09→12:18)
[2020-05-06] MEDS ORDERED: SODIUM BICARBONATE 8.4% INJ 50MEQ 50 ML VIAL As Ordered ONE (12:18)
[2020-05-06] MEDS ORDERED: SODIUM CHLORIDE 0.9% INJ 10 ML SYR IV PRN (13:30)
[2020-05-06 14:00] VITALS: BP 152/78
[2020-05-06] MEDS: VANCOMYCIN HCL 500 MG in D5W MINI-BAG PLUS 100 ML IV SCH (15:10)
[2020-05-06] MEDS: SODIUM CHLORIDE 0.9% INJ 10 ML SYR IV SCH (17:30)
[2020-05-06 20:34] VITALS: BP 145/61
[2020-05-06] MEDS: ATORVASTATIN 20 MG TAB PO SCH ×2 (21:00→21:39)
[2020-05-06] MEDS: LEVEMIR (INSULIN DETEMIR) 1 UNITS/0.01ML SC SCH (21:38)
[2020-05-07 05:44] VITALS: BP 173/75
[2020-05-07] MEDS: SODIUM CHLORIDE 0.9% INJ 10 ML SYR IV SCH ×2 (05:44→15:55)
[2020-05-07] MEDS: HumaLOG INSULIN (NovoLOG) PER UNIT SC SCH ×4 (07:30→21:00)
[2020-05-07] MEDS: HEPARIN SOD (PORCINE) 5000UNITS/ML 1ML VIAL/SYRINGE SC SCH ×2 (09:23→21:52)
[2020-05-07] MEDS: PANTOPRAZOLE 40MG TAB (PROTONIX) PO SCH ×2 (09:25→21:00)
[2020-05-07] MEDS: CARVedilol 6.25 MG TAB PO SCH ×2 (09:25→21:00)
[2020-05-07] MEDS: CLOPIDOGREL 75 MG TAB PO SCH (09:25)
[2020-05-07] MEDS: ISOSORBIDE DIN. (ISORDIL) 20 MG TAB PO SCH ×2 (09:26→21:00)
[2020-05-07] MEDS: FERROUS SULFATE 325MG TAB PO SCH (09:26)
[2020-05-07] MEDS: TORSEMIDE 20 MG TAB PO SCH (09:26)
[2020-05-07] MEDS: **hydrALAZINE** 50 MG TAB PO SCH ×2 (09:27→21:00)
--- NOTE | 2020-05-07 10:01 | REP ---
INDICATION: infection aspiration r ankle cultures please COMPARISON: None. TECHNIQUE: The procedure was performed by TIFF Syed, under the direct supervision of Dr. Olvera The risks and benefits of the procedure were explained to the patient and an informed consent was obtained both verbally and written. Directly prior to the start of the procedure a formal time-out was completed in the procedure room. Fluid in the right medial ankle adjacent to the posterior tibial tendon was localized using ultrasound guidance. The skin was prepped and draped in a sterile fashion. Approximately 1 mL ML of buffered lidocaine was used as a local anesthetic. Using ultrasound guidance an 19 gauge needle was inserted into the collection. FINDINGS: Approximately 7 mL of red tinged fluid was withdrawn and sent to the laboratory for further analysis. The patient tolerated the procedure well and there were no immediate complications. After the appropriate amount of monitored convalescence, the patient was discharged from the department. IMPRESSION: Ultrasound-guided right ankle aspiration. <Electronically signed by Gracia Bowman > 05/07/20 0825 <Electronically signed by Enoc Olvera > 05/07/20 0960
--- NOTE | 2020-05-07 10:02 | REP ---
PROCEDURE NAME: PICC LINE INSERTION W/SITERITE CLINICAL INFORMATION: RESIDENTIAL IV ACCESS, POOR ACCESS. COMPARISON: None. PROCEDURE DESCRIPTION: The procedure was performed by TIFF Syed, under the direct supervision of Dr. Olvera. The risks and benefits of the procedure were explained to the patient and an informed consent was obtained both verbally and written. Directly prior to the start of the procedure a formal time-out was completed in the procedure room. The left medial brachial vein was localized using ultrasound guidance. The skin was prepped and draped in sterile fashion. One mL of 1% lidocaine 10 mg/mL was used as a local anesthetic. Using ultrasound guidance the left medial brachial vein was cannulated, and a 0.018 guidewire was inserted and advanced to the level of SVC using fluoroscopic guidance. The needle was removed and a 4.5 [place] dilator and peel-away sheath was inserted over the guidewire. A 4.5 [place] single lumen catheter was cut to a length of 40 cm. The dilator was removed and the catheter was inserted over the guidewire with the tip ending at the level of the SVC. The peel-away sheath was removed and the catheter was flushed with heparinized saline as per hospital protocol. The catheter was affixed to the skin and a sterile dressing was applied. The patient tolerated the procedure well and there were no immediate complications. CONCLUSION: PICC line insertion into the left medial brachial vein. 0.01 minutes of fluoroscopy time was utilized for this procedure. Some fluoroscopic images are performed with last image hold technology. These images require no additional radiation. <Electronically signed by Gracia Bwoman > 05/07/20 0753 <Electronically signed by Enoc Olvera > 05/07/20 2326
[2020-05-07 14:00] VITALS: BP 132/58
[2020-05-07 14:13] LABS: CALCIUM LEVEL 8.1 MG/DL (8.8-10.2); CREATININE FOR GFR 1.47 MG/DL (0.55-1.30); GLOMERULAR FILTRATION RATE 37.2 (>39); POTASSIUM SERUM 4.8 MEQ/L (3.5-5.1)
[2020-05-07] MEDS: VANCOMYCIN HCL 500 MG in D5W MINI-BAG PLUS 100 ML IV SCH (14:53)
[2020-05-07 16:09] LABS: C REACTIVE PROTEIN QUANTITATIV 0.96 MG/DL (0.00-0.30)
--- NOTE | 2020-05-07 20:42 | IPNPDOC ---
Subjective Date Seen The patient was seen on 05/07/20. Subjective Chief Complaint/HPI Does not talk today except for 1 or 2 words. follows commands. Objective Physical Examination General Exam: Positive: No Acute Distress, Other (awake, follows command, keeps eyes closed ,speaks only one or two words. ) Eye Exam: Positive: Conjunctiva & lids normal ENT Exam: Positive: Atraumatic, Mucous membr. moist/pink, Pharynx Normal Neck Exam: Positive: Supple; Negative: JVD, thyromegaly Chest Exam: Positive: Clear to auscultation, Normal air movement Heart Exam: Positive: Rate Normal, Regular Rhythm, Normal S1, Normal S2 Abdomen Exam: Positive: Normal bowel sounds, Soft; Negative: Tenderness Extremity Exam: Positive: Edema, Other (right ankle with dressing. ); Negative: Clubbing, Cyanosis Assessment /Plan Assessment 74-year-old female with past medical history of Dementia, HTN, IDDM2, HLD, HFpEF, CKD3, Iron deficiency, Vitamin D deficiency, Depression, GERD, PAD who was recently admitted from [facility] for suspected right foot infection in early 03/2020 after failed outpatient management of cellulitis with an ulcer of her right foot and was initially placed on IV zosyn for cellulitis with possible osteomyelitis, and podiatry (Dr. Hamilton) was consulted and felt this was not a case of osteomyelitis but rather a pressure ulcer with an eschar as well as reactivation of charcot's foot and she was managed conservatively with an offloading boot and nonweightbearing status and she completed a 10d course with cefdinir. She returns now with unremitting and actually interval worsening or R foot and ankle redness and swelling with reported pain, now entirely bedbound since this pain started. She was diagnosed with Right foot osteomyelitis with abscess and underwent bedside incision and drainage with orthopedics. Right foot MRSA abscess with severe Charcot arthropathy and probable underlying osteomyelitis although this cannot be confirmed with such severe Charcot changes On going for about 3 months. status post abscess drainage by Ortho Evaluated by infectious disease, orthopedic surgery and vascular surgery. BKA was offered, patient refused, Cultures positive for MRSA, plan to treat with vancomycin for 6 weeks and reassess. Last date of treatment Jun 12, 2020. PAD s/p stenting of bilateral external iliac arteries on 05/01/20 continue plavix. Congestive heart failure with preserved EF Continue home torsemide, Isordil and Coreg. Diabetes mellitus. Continue Levemir with sliding scale insulin coverage with meals and at bedtime. Hypertension. Continue hydralazine, Coreg and Isordil Chronic kidney disease stage 3 Likely secondary to underlying diabetes mellitus, hypertension and congestive heart failure. Renal function is at baseline. Hyperkalemia, resolved Iron def ferrous sulfate HLD atorvastatin. Morbid obesity complicating care. Dementia Vs delirium as per PMD patient did not have any dementia when she came to [facility]. she used to live in [place] till 2018 then moved to [facility] side. This is most likely delirium due to worsening infection. Plan/VTE VTE Prophylaxis Ordered?: Yes VS, I&O, 24H, Fishbone Vital Signs/I&O Vital Signs Date Time Temp Pulse Resp B/P (MAP) Pulse Ox O2 Delivery O2 Flow Rate FiO2 05/07/20 14:00 99.8 78 18 132/58 (82) 96 Room Air 05/01/20 17:54 2 I&O- Last 24 Hours up to 6 AM 05/07/20 07:00 Intake Total 750 ml Balance 750 ml Laboratory Data 24H LABS Laboratory Tests 2 05/06/20 20:18: Bedside Glucose (Misc Panel) 173H 05/07/20 05:42: Bedside Glucose (Misc Panel) 124H 05/07/20 11:15: Anion Gap 8, Glomerular Filtration Rate 37.2L, Calcium Level 8.1L, C-Reactive Protein, Quantitative 0.96H 05/07/20 11:36: Bedside Glucose (Misc Panel) 153H 05/07/20 17:00: Bedside Glucose (Misc Panel) 200H 05/07/20 19:43: Bedside Glucose (Misc Panel) 233H CBC/BMP Laboratory Tests 05/07/20 11:15 Microbiology Microbiology 05/06/20 Gram Stain - Final, Resulted 05/06/20 Abscess Culture, Resulted Pending 05/06/20 Anaerobic Culture, Resulted Pending 04/30/20 Gram Stain - Final, Complete 04/30/20 Abscess Culture - Final, Complete Staph.aureus Methicillin Resis 04/30/20 Blood Culture - Final, Complete NO GROWTH AFTER 5 DAYS 04/30/20 Blood Culture - Final, Complete NO GROWTH AFTER 5 DAYS MARU MONTEMAYOR MD May 07, 2020 20:42
[2020-05-07] MEDS: ATORVASTATIN 20 MG TAB PO SCH (21:00)
[2020-05-07] MEDS: LEVEMIR (INSULIN DETEMIR) 1 UNITS/0.01ML SC SCH (21:52)
[2020-05-07 22:00] VITALS: BP 168/64
[2020-05-08 06:00] VITALS: BP 128/79
[2020-05-08] MEDS: SODIUM CHLORIDE 0.9% INJ 10 ML SYR IV SCH (06:17)
[2020-05-08 06:33] LABS: CALCIUM LEVEL 8.2 MG/DL (8.8-10.2); CREATININE FOR GFR 1.36 MG/DL (0.55-1.30); GLOMERULAR FILTRATION RATE 40.7 (>39); POTASSIUM SERUM 4.4 MEQ/L (3.5-5.1)
[2020-05-08] MEDS: HumaLOG INSULIN (NovoLOG) PER UNIT SC SCH (08:42)
[2020-05-08] MEDS: CLOPIDOGREL 75 MG TAB PO SCH (08:43)
[2020-05-08] MEDS: HEPARIN SOD (PORCINE) 5000UNITS/ML 1ML VIAL/SYRINGE SC SCH (08:43)
[2020-05-08] MEDS: PANTOPRAZOLE 40MG TAB (PROTONIX) PO SCH (08:43)
[2020-05-08] MEDS: FERROUS SULFATE 325MG TAB PO SCH (08:43)
[2020-05-08] MEDS: CARVedilol 6.25 MG TAB PO SCH (08:43)
[2020-05-08 08:44] VITALS: BP 128/79
[2020-05-08] MEDS: **hydrALAZINE** 50 MG TAB PO SCH (08:44)
[2020-05-08] MEDS: TORSEMIDE 20 MG TAB PO SCH (08:44)
[2020-05-08] MEDS: ISOSORBIDE DIN. (ISORDIL) 20 MG TAB PO SCH (08:44)
--- NOTE | 2020-05-10 20:09 | DS.PDOC ---
Discharge Summary General Date of Admission Apr 30, 2020 at 14:59 Date of Discharge 05/08/20 Discharge Summary PROCEDURES PERFORMED DURING STAY: Stenting of bilateral external iliac arteries on 05/01/20 Incision and Drainage of right foot abscess. DISCHARGE DIAGNOSES: Right foot MRSA abscess with severe Charcot arthropathy and probable underlying osteomyelitis PAD s/p stents Dementia Vs delirium SECONDARY DIAGNOSIS: Dementia, HTN, IDDM2, HLD, HFpEF, CKD3, Iron deficiency, Vitamin D deficiency, Depression, GERD, Morbid obesity. COMPLICATIONS/CHIEF COMPLAINT: Osteomyelitis Of Ankle. HOSPITAL COURSE: 74-year-old female with past medical history of Dementia, HTN, IDDM2, HLD, HFpEF, CKD3, Iron deficiency, Vitamin D deficiency, Depression, GERD, PAD who was recently admitted from [facility] for suspected right foot infection in early 03/2020 after failed outpatient management of cellulitis with an ulcer of her right foot and was initially placed on IV zosyn for cellulitis with possible osteomyelitis, and podiatry (Dr. Hamilton) was consulted and felt this was not a case of osteomyelitis but rather a pressure ulcer with an eschar as well as reactivation of charcot's foot and she was managed conservatively with an offloading boot and nonweightbearing status and she completed a 10d course with cefdinir. She returns now with unremitting and actually interval worsening or R foot and ankle redness and swelling with reported pain, now entirely bedbound since this pain started. She was diagnosed with Right foot osteomyelitis with abscess and underwent bedside incision and drainage with orthopedics. Right foot MRSA abscess with severe Charcot arthropathy and probable underlying osteomyelitis although this cannot be confirmed with such severe Charcot changes On going for about 3 months. status post abscess drainage by Ortho Evaluated by infectious disease, orthopedic surgery and vascular surgery. BKA was offered, patient refused, Cultures positive for MRSA, plan to treat with vancomycin for 6 weeks and reassess. Last date of treatment Jun 12, 2020. PAD s/p stenting of bilateral external iliac arteries on 05/01/20 continue Plavix. Congestive heart failure with preserved EF Continue home torsemide, Isordil and Coreg. Diabetes mellitus. Continue Levemir with sliding scale insulin coverage with meals and at bedtime. Hypertension. Continue hydralazine, Coreg and Isordil Chronic kidney disease stage 3 Likely secondary to underlying diabetes mellitus, hypertension and congestive heart failure. Renal function is at baseline. Hyperkalemia, resolved Iron def ferrous sulfate HLD atorvastatin. Morbid obesity complicating care. Dementia Vs delirium as per PMD patient did not have any dementia when she came to [facility]. she used to live in [place] till 2018 then moved to [facility] side. This is most likely delirium due to worsening infection. DISCHARGE MEDICATIONS: Please see below. ALLERGIES: Please see below. PHYSICAL EXAMINATION ON DISCHARGE: VITAL SIGNS: Please see below. General Exam: Positive: No Acute Distress, Other (awake, follows command, keeps eyes closed ,speaks only one or two words. ) Eye Exam: Positive: Conjunctiva & lids normal ENT Exam: Positive: Atraumatic, Mucous membr. moist/pink, Pharynx Normal Neck Exam: Positive: Supple; Negative: JVD, thyromegaly Chest Exam: Positive: Clear to auscultation, Normal air movement Heart Exam: Positive: Rate Normal, Regular Rhythm, Normal S1, Normal S2 Abdomen Exam: Positive: Normal bowel sounds, Soft; Negative: Tenderness Extremity Exam: Positive: Edema, Other (right ankle with dressing. ); Negative: Clubbing, Cyanosis LABORATORY DATA: Please see below. ACTIVITY: [As tolerated]. DIET: Carb consistent DISPOSITION: [facility]. DISCHARGE INSTRUCTIONS: Follow up Dr Cesar Follow up Orthopedics. ITEMS TO FOLLOWUP ON ON OUTPATIENT: Weekly CBC with diff, crp, basic DISCHARGE CONDITION: [Stable]. TIME SPENT ON DISCHARGE: 35 minutes. Vital Signs/I&Os Vital Signs Date Time Temp Pulse Resp B/P (MAP) Pulse Ox O2 Delivery O2 Flow Rate FiO2 05/08/20 08:44 128/79 05/08/20 08:43 72 05/08/20 06:00 99.0 16 95 Room Air Microbiology Microbiology 05/06/20 Gram Stain - Final, Complete 05/06/20 Abscess Culture - Final, Complete Staph.aureus Methicillin Resis 05/06/20 Anaerobic Culture - Final, Complete 04/30/20 Gram Stain - Final, Complete 04/30/20 Abscess Culture - Final, Complete Staph.aureus Methicillin Resis 04/30/20 Blood Culture - Final, Complete NO GROWTH AFTER 5 DAYS 04/30/20 Blood Culture - Final, Complete NO GROWTH AFTER 5 DAYS Discharge Medications Scheduled Aspirin (Aspirin EC) 81 Mg Tab, 81 MG PO DAILY, (Reported) Atorvastatin Calcium (Atorvastatin Calcium) 40 Mg Tablet, 40 MG PO QHS, (Reported) Calcitriol (Calcitriol) 0.25 Mcg Capsule, 0.25 MCG PO DAILY, (Reported) Carvedilol (Carvedilol) 6.25 Mg Tab, 6.25 MG PO BID, (Reported) Clopidogrel Bisulfate (Plavix) 75 Mg Tablet, 75 MG PO QHS, (Reported) Ferrous Sulfate (Ferrous Sulfate) 325 Mg Tab, 325 MG PO DAILY, (Reported) Fluoxetine Hcl (Fluoxetine HCl) 10 Mg Capsule, 30 MG PO DAILY, (Reported) Hydralazine HCl (Hydralazine HCl) 50 Mg Tablet, 50 MG PO BID, (Reported) Insulin Detemir (Levemir Flextouch) 100 Unit/1 Ml Insuln.pen, 40 UNIT SC DAILY, (Reported) STARTING 03/28/2020 AT 0600, WAS TAKING 32 UNITS DAILY PRIOR Insulin Detemir (Levemir Flextouch) 100 Unit/1 Ml Insuln.pen, 20 UNIT SC QHS, (Reported) Insulin NPH Human Isophane (Humulin N Kwikpen) 100 Unit/1 Ml Insuln.pen, 10 UNITS SC DAILY, (Reported) AT NOON Isosorbide Dinitrate (Isosorbide Dinitrate) 20 Mg Tablet, 20 MG PO BID, (Reported) L.acidoph/L.bulg/B.bif/S.therm (Bacid Caplet) 1 Each Tablet, 1 TAB PO DAILY, (Reported) Lanolin Alcohol/Mo/W.pet/[place] (Eucerin Creme) 454 Gm Cream..g., 1 DOSE TOP BID, (Reported) BILATERAL LOWER EXTREMITIES Lidocaine HCl (Aspercreme) 4% Cream..g., 1 DOSE TOP TID, (Reported) APPLY SMALL AMOUNT TO RIGHT KNEE: 0600, 1400, 2100 Nut.tx.imp.renal Fxn,Lac-Reduc (Nepro Carb Steady) 237 Ml Liquid, 240 ML PO PC, (Reported) GIVE AFTER MEALS IF PO INTAKE IS LESS THAN OR EQUAL TO 50% Pantoprazole Sodium (Pantoprazole Sodium) 40 Mg Tablet.dr, 40 MG PO BID, (Reported) 0600, 2000 Sennosides/Docusate Sodium (Senna-S Tablet) 1 Each Tablet, 2 TAB PO BID, (Reported) Spironolactone (Spironolactone) 25 Mg Tablet, 25 MG PO DAILY, (Reported) Torsemide (Torsemide) 20 Mg Tablet, 20 MG PO DAILY, (Reported) Scheduled PRN Acetaminophen (Acetaminophen) 325 Mg Tab, 650 MG PO Q4H PRN for PAIN / FEVER, (Reported) Bisacodyl (Bisacodyl) 10 Mg Supp.rect, 10 MG HI DAILY PRN for CONSTIPATION, (Reported) Glucagon,Human Recombinant (Glucagon Emergency Kit) 1 Mg Vial, 1 MG IM ASDIRECTED PRN for LOW BLOOD SUGAR, (Reported) Magnesium Hydroxide (Milk of Magnesia) 400 Mg/5 Ml Oral.susp, 400 MG PO DAILY PRN for CONSTIPATION, (Reported) Polyvinyl Alcohol (Artificial Tears) 15 Ml Drops, 1 DROP OU Q2H PRN for DRY EYES, (Reported) Sodium Phosphate,[place]-Dibasic (Enema) 133 Ml Enema, 1 GALO HI DAILY PRN for CONSTIPATION, (Reported) Allergies Coded Allergies: Latex, Natural Rubber (Verified Allergy, Unknown, Rash, 02/21/20) milk (Verified Allergy, Unknown, 02/21/20) MARU MONTEMAYOR MD May 10, 2020 20:08
== END 2020-05-08 11:15 | DRG 253 ==
LOC: EDBD 11:26 → M ED 11:26 → M ED INP 14:59 → ENRESERV 15:46 → M MS5PR 16:54 → M ED INP 17:23 → M MS5PR 21:11
PROVIDERS: ADMIT General Practice; ATTEND Internal Medicine Nephrology
PROC: 047H3DZ Dilation of Right External Iliac Artery with Intraluminal Device, Percutaneous Approach (ICD-10-PCS; 2020-05-01)
PROC: 047J3DZ Dilation of Left External Iliac Artery with Intraluminal Device, Percutaneous Approach (ICD-10-PCS; principal; 2020-05-01 16:00)
PROC: 0Y9K0ZZ Drainage of Right Ankle Region, Open Approach (ICD-10-PCS; 2020-05-06)
PROC: 047C34Z Dilation of Right Common Iliac Artery with Drug-eluting Intraluminal Device, Percutaneous Approach (ICD-10-PCS; 2020-05-06)
PROC: 02HV33Z Insertion of Infusion Device into Superior Vena Cava, Percutaneous Approach (ICD-10-PCS; 2020-05-06)
DX: E11.51 Type 2 diabetes mellitus with diabetic peripheral angiopathy without gangrene (principal); M86.171 Other acute osteomyelitis, right ankle and foot; L02.415 Cutaneous abscess of right lower limb; I13.0 Hypertensive heart and chronic kidney disease with heart failure and stage 1 through stage 4 chronic kidney disease, or unspecified chronic kidney disease; I50.32 Chronic diastolic (congestive) heart failure; E11.69 Type 2 diabetes mellitus with other specified complication; N18.30 Chronic kidney disease, stage 3 unspecified; F03.90 Unspecified dementia, unspecified severity, without behavioral disturbance, psychotic disturbance, mood disturbance, and anxiety; E11.621 Type 2 diabetes mellitus with foot ulcer; I70.209 Unspecified atherosclerosis of native arteries of extremities, unspecified extremity; E11.610 Type 2 diabetes mellitus with diabetic neuropathic arthropathy; B95.62 Methicillin resistant Staphylococcus aureus infection as the cause of diseases classified elsewhere; E87.5 Hyperkalemia; D50.9 Iron deficiency anemia, unspecified; K21.9 Gastro-esophageal reflux disease without esophagitis; F32.9 Major depressive disorder, single episode, unspecified; L97.519 Non-pressure chronic ulcer of other part of right foot with unspecified severity; Z79.82 Long term (current) use of aspirin; Z79.899 Other long term (current) drug therapy; Z79.4 Long term (current) use of insulin

== ENCOUNTER → 2020-05-03 | Outpatient (REF) | payer MEDICARE, MEDICAID ==
[~2020-05-03] MED LIST changes: +AUGM500T34 PO; +BACITAB PO
--- NOTE | 2020-05-07 23:04 | IPN ---
INFECTIOUS DISEASE PROGRESS NOTE DATE: 05/07/2020 SUBJECTIVE: Derrick seems to be doing well. She is sitting in her bed, eating her dinner. She has no complaints. No fever or chills. No nausea, vomiting or diarrhea. She states her leg does not hurt her. PHYSICAL EXAMINATION: VITALS: Temperature 99.8, pulse 78, respirations 18, blood pressure 132/58, O2 sat 96% on room air. HEART: Normal S1, S2. Systolic ejection murmur 2/6. LUNGS: Clear. No wheezes, rales or rhonchi. ABDOMEN: Morbidly obese, soft, nontender. EXTREMITIES: Trace edema. Right ankle swollen with Charcot arthropathy and erythema medially. Nontender to touch. LABORATORY DATA: White count 7.1, hemoglobin 7.6, hematocrit 26.6, platelets 195,000. ESR on 05/01/2020 was 128. Sodium 144, potassium 4.8, chloride 118, bicarb 18, BUN 43, creatinine 1.47, glucose 191, calcium 8.1. CRP 0.96 down from 8.35. Wound culture from right ankle had MRSA. Repeat aspiration done on 05/06/2020; gram stain had many red cells, many white cells and 2 gram positive cocci in pairs and clusters. Vancomycin trough on 05/06/2020 was 21.4. IMPRESSION: 1. MRSA abscess of the right ankle with severe Charcot arthropathy and possibly superimposed osteomyelitis with severe deformation. Patient is on I.V. Vancomycin 500 mg every 24 hours. Patient is tolerating well with improved CRP. Patient had two aspiration procedures. 2. Insulin dependent diabetes with diabetic neuropathy. 3. Peripheral vascular disease, status post angioplasty done by Dr. Sherwood this admission. PLAN: Continue I.V. Vancomycin through PICC line for a total of six weeks, with end of therapy anticipated on June 11. Please monitor CBC, basic profile, Vancomycin trough, ESR and CRP weekly. Patient will need to follow-up with infectious disease clinic in 2-3 weeks. This could be done through a ZOOM visit with the nurses from [facility] scheduling the appointment. The patient will be transferred back to [facility] tomorrow. FREDA
== END ==
PROVIDERS: ATTEND Internal Medicine
DX: Z20.822 Contact with and (suspected) exposure to COVID-19 (principal)

== ENCOUNTER → 2020-05-13 | Outpatient (REF) | payer MEDICARE, MEDICAID ==
[~2020-05-13] MED LIST changes: -LISI-538 PO; +LISI20TA33 PO; -LISI40TA PO; +LISI40TA4 PO; -SIME40TA PO; +SIME80CH6 PO
[2020-05-13 12:04] LABS: BASO # 0.1 10^3/uL (0.0-0.2); BASO % 0.9 % (0.0-1.0); EOS # 0.2 10^3/uL (0.0-0.5); EOS % 3.4 % (0.0-3.0); HEMATOCRIT 26.9 % (36.0-47.0); LYMPH # 1.6 10^3/uL (1.5-5.0); MEAN CORPUSCULAR HEMOGLOBIN 27.9 pg (27.0-33.0); MEAN CORPUSCULAR HGB CONC 29.7 g/dl (32.0-36.5); MEAN CORPUSCULAR VOLUME 93.7 fl (80.0-96.0); MONO # 0.8 10^3/uL (0.0-0.8); NEUTROPHILS # 3.2 10^3/uL (1.5-8.5); NEUTROPHILS % 54.2 % (36.0-66.0); PLATELET COUNT, AUTOMATED 158 10^3/uL (150-450); RED BLOOD COUNT 2.87 10^6/uL (4.00-5.40); WHITE BLOOD COUNT 5.9 10^3/uL (4.0-10.0)
[2020-05-13 12:44] LABS: ERYTHROCYTE SEDIMENTATION RATE 128 mm/hr (0-30)
[2020-05-13 13:15] LABS: ALBUMIN 2.1 GM/DL (3.2-5.2); BILIRUBIN,TOTAL 0.3 MG/DL (0.2-1.0); C REACTIVE PROTEIN QUANTITATIV 0.73 MG/DL (0.00-0.30); CALCIUM LEVEL 8.7 MG/DL (8.8-10.2); CREATININE FOR GFR 1.37 MG/DL (0.55-1.30); GLOMERULAR FILTRATION RATE 40.3 (>39); POTASSIUM SERUM 4.8 MEQ/L (3.5-5.1); TOTAL PROTEIN 5.4 GM/DL (6.4-8.2); VANCOMYCIN LEVEL TROUGH 16.7 UG/ML (10.0-20.0)
== END ==
PROVIDERS: ATTEND Internal Medicine
DX: L03.90 Cellulitis, unspecified (principal)

== ENCOUNTER → 2020-05-14 | Outpatient (REF) | payer MEDICARE, MEDICAID | PROVIDERS: ATTEND Internal Medicine | DX: M86.9 Osteomyelitis, unspecified (principal) ==

== ENCOUNTER → 2020-05-15 | Outpatient (REF) | payer MEDICARE, MEDICAID ==
[~2020-05-15] MED LIST changes: +LISI-538 PO; -LISI20TA33 PO; +LISI40TA PO; -LISI40TA4 PO; +SIME40TA PO; -SIME80CH6 PO
== END ==
PROVIDERS: ATTEND Internal Medicine
DX: Z20.822 Contact with and (suspected) exposure to COVID-19 (principal)

== ENCOUNTER → 2020-05-20 | Outpatient (REF) | payer MEDICARE, MEDICAID ==
[~2020-05-20] MED LIST changes: -LISI-538 PO; +LISI20TA33 PO; -LISI40TA PO; +LISI40TA4 PO; -SIME40TA PO; +SIME80CH6 PO
[2020-05-20 15:46] LABS: BASO # 0.1 10^3/uL (0.0-0.2); BASO % 0.8 % (0.0-1.0); EOS # 0.1 10^3/uL (0.0-0.5); EOS % 1.6 % (0.0-3.0); HEMATOCRIT 28.7 % (36.0-47.0); HEMOGLOBIN 8.6 g/dl (12.0-15.5); LYMPH # 1.1 10^3/uL (1.5-5.0); MEAN CORPUSCULAR HEMOGLOBIN 28.1 pg (27.0-33.0); MEAN CORPUSCULAR VOLUME 93.8 fl (80.0-96.0); MONO # 0.4 10^3/uL (0.0-0.8); MONO % 5.7 % (0.0-5.0); NEUTROPHILS # 5.6 10^3/uL (1.5-8.5); NEUTROPHILS % 76.4 % (36.0-66.0); PLATELET COUNT, AUTOMATED 171 10^3/uL (150-450); RED BLOOD COUNT 3.06 10^6/uL (4.00-5.40); WHITE BLOOD COUNT 7.3 10^3/uL (4.0-10.0)
[2020-05-20 16:11] LABS: ERYTHROCYTE SEDIMENTATION RATE 87 mm/hr (0-30)
[2020-05-20 16:17] LABS: ALBUMIN 2.5 GM/DL (3.2-5.2); BILIRUBIN,TOTAL 0.4 MG/DL (0.2-1.0); C REACTIVE PROTEIN QUANTITATIV 0.4 MG/DL (0.00-0.30); CALCIUM LEVEL 9.8 MG/DL (8.8-10.2); CREATININE FOR GFR 1.51 MG/DL (0.55-1.30); GLOMERULAR FILTRATION RATE 36.1 (>39); POTASSIUM SERUM 4.8 MEQ/L (3.5-5.1); TOTAL PROTEIN 5.9 GM/DL (6.4-8.2); VANCOMYCIN LEVEL TROUGH 15.8 UG/ML (10.0-20.0)
== END ==
PROVIDERS: ATTEND Internal Medicine
DX: M86.18 Other acute osteomyelitis, other site (principal)

== ENCOUNTER → 2020-05-22 | Outpatient (REF) | payer MEDICARE, MEDICAID, OTHER ==
[~2020-05-22] MED LIST changes: +LISI-538 PO; -LISI20TA33 PO; +LISI40TA PO; -LISI40TA4 PO; +SIME40TA PO; -SIME80CH6 PO
== END ==
PROVIDERS: ATTEND Internal Medicine
DX: Z20.822 Contact with and (suspected) exposure to COVID-19 (principal)

== ENCOUNTER → 2020-05-27 | Outpatient (REF) ==
[2020-05-27 18:10] LABS: BASO # 0.1 10^3/uL (0.0-0.2); BASO % 0.9 % (0.0-1.0); EOS # 0.2 10^3/uL (0.0-0.5); EOS % 2.1 % (0.0-3.0); HEMATOCRIT 31.6 % (36.0-47.0); HEMOGLOBIN 9.3 g/dl (12.0-15.5); LYMPH # 1.2 10^3/uL (1.5-5.0); LYMPH % 14.8 % (24.0-44.0); MEAN CORPUSCULAR HEMOGLOBIN 28.4 pg (27.0-33.0); MEAN CORPUSCULAR HGB CONC 29.4 g/dl (32.0-36.5); MEAN CORPUSCULAR VOLUME 96.3 fl (80.0-96.0); MONO # 0.6 10^3/uL (0.0-0.8); NEUTROPHILS # 5.9 10^3/uL (1.5-8.5); NEUTROPHILS % 74.4 % (36.0-66.0); PLATELET COUNT, AUTOMATED 154 10^3/uL (150-450); RED BLOOD COUNT 3.28 10^6/uL (4.00-5.40)
[2020-05-27 18:28] LABS: ALBUMIN 2.9 GM/DL (3.2-5.2); BILIRUBIN,TOTAL 0.2 MG/DL (0.2-1.0); C REACTIVE PROTEIN QUANTITATIV 0.34 MG/DL (0.00-0.30); CALCIUM LEVEL 11.5 MG/DL (8.8-10.2); CREATININE FOR GFR 1.72 MG/DL (0.55-1.30); POTASSIUM SERUM 5.6 MEQ/L (3.5-5.1); TOTAL PROTEIN 6.1 GM/DL (6.4-8.2); VANCOMYCIN LEVEL TROUGH 19.3 UG/ML (10.0-20.0)
[2020-05-27 19:08] LABS: ERYTHROCYTE SEDIMENTATION RATE 64 mm/hr (0-30)
== END ==
PROVIDERS: ATTEND Internal Medicine
DX: M86.9 Osteomyelitis, unspecified (principal)

== ENCOUNTER → 2020-05-29 | Outpatient (REF) | payer MEDICARE, MEDICAID, OTHER ==
[2020-05-29 12:23] LABS: CALCIUM LEVEL 11.9 MG/DL (8.8-10.2); CREATININE FOR GFR 1.78 MG/DL (0.55-1.30); GLOMERULAR FILTRATION RATE 29.8 (>39); POTASSIUM SERUM 4.2 MEQ/L (3.5-5.1)
== END ==
PROVIDERS: ATTEND Internal Medicine
DX: E86.0 Dehydration (principal); Z20.822 Contact with and (suspected) exposure to COVID-19
CPT/HCPCS: 36415; 80048; U0003

== ENCOUNTER → 2020-05-30 | Outpatient (REF) | payer MEDICARE, MEDICAID, OTHER ==
[~2020-05-30] MED LIST changes: -LISI-538 PO; +LISI20TA33 PO; -LISI40TA PO; +LISI40TA4 PO; -SIME40TA PO; +SIME80CH6 PO
[2020-05-30 07:23] LABS: CALCIUM LEVEL 11.7 MG/DL (8.8-10.2); CREATININE FOR GFR 1.44 MG/DL (0.55-1.30); GLOMERULAR FILTRATION RATE 38.1 (>39); POTASSIUM SERUM 3.8 MEQ/L (3.5-5.1)
== END ==
PROVIDERS: ATTEND Internal Medicine
DX: N18.9 Chronic kidney disease, unspecified (principal)

== ENCOUNTER → 2020-06-03 | Outpatient (REF) | payer MEDICARE, MEDICAID, OTHER ==
[2020-06-03 09:34] LABS: BASO # 0.1 10^3/uL (0.0-0.2); BASO % 0.9 % (0.0-1.0); EOS # 0.4 10^3/uL (0.0-0.5); EOS % 5.6 % (0.0-3.0); HEMATOCRIT 33.1 % (36.0-47.0); HEMOGLOBIN 9.5 g/dl (12.0-15.5); LYMPH # 1.3 10^3/uL (1.5-5.0); LYMPH % 17.4 % (24.0-44.0); MEAN CORPUSCULAR HEMOGLOBIN 28.2 pg (27.0-33.0); MEAN CORPUSCULAR HGB CONC 28.7 g/dl (32.0-36.5); MEAN CORPUSCULAR VOLUME 98.2 fl (80.0-96.0); MONO # 0.7 10^3/uL (0.0-0.8); MONO % 9.1 % (0.0-5.0); NEUTROPHILS % 66.6 % (36.0-66.0); PLATELET COUNT, AUTOMATED 130 10^3/uL (150-450); RED BLOOD COUNT 3.37 10^6/uL (4.00-5.40); WHITE BLOOD COUNT 7.6 10^3/uL (4.0-10.0)
[2020-06-03 10:08] LABS: CREATININE FOR GFR 1.78 MG/DL (0.55-1.30); GLOMERULAR FILTRATION RATE 29.8 (>39); POTASSIUM SERUM 4.3 MEQ/L (3.5-5.1)
[2020-06-03 10:09] LABS: ALBUMIN 2.7 GM/DL (3.2-5.2); BILIRUBIN,TOTAL 0.2 MG/DL (0.2-1.0); CALCIUM LEVEL 11.4 MG/DL (8.8-10.2); TOTAL PROTEIN 5.7 GM/DL (6.4-8.2)
[2020-06-03 10:11] LABS: C REACTIVE PROTEIN QUANTITATIV 0.3 MG/DL (0.00-0.30); CALCIUM LEVEL 11.2 MG/DL (8.8-10.2); CREATININE FOR GFR 1.76 MG/DL (0.55-1.30); GLOMERULAR FILTRATION RATE 30.2 (>39); POTASSIUM SERUM 4.2 MEQ/L (3.5-5.1)
[2020-06-03 10:28] LABS: ERYTHROCYTE SEDIMENTATION RATE 47 mm/hr (0-30)
== END ==
PROVIDERS: ATTEND Internal Medicine
DX: I50.9 Heart failure, unspecified (principal)

== ENCOUNTER → 2020-06-05 | Outpatient (REF) | payer MEDICARE, MEDICAID, OTHER ==
[~2020-06-05] MED LIST changes: +JUVEPOW3 PO; +ONDA-83 PO; +THERTAB52 PO
== END ==
PROVIDERS: ATTEND Internal Medicine
DX: Z20.822 Contact with and (suspected) exposure to COVID-19 (principal)

== ENCOUNTER 2020-06-11 13:55 | Inpatient (IN) | payer MEDICARE, MEDICAID, OTHER ==
[~2020-06-11] VITALS: Ht 152.4 cm; Wt 95.0 kg
[~2020-06-11 13:55] MED LIST changes: -JUVEPOW3 PO; -ONDA-83 PO; -THERTAB52 PO
--- NOTE | 2020-06-11 14:41 | REP ---
INDICATION: Altered Mental Status. COMPARISON: Comparison study 30 April 2020. TECHNIQUE: Portable upright AP chest radiograph. FINDINGS: Monitoring electrodes and oxygen delivery tubing are seen. There is linear pleuroparenchymal scarring at the left base and along the left heart border unchanged from August 25, 2019 and 30 April 2020 prior radiographs. Pulmonary vasculature is cephalized. Heart size is borderline. The pleural angles and cells are sharp. No focal infiltrate is seen.. IMPRESSION: Cardiomegaly with cephalization of pulmonary vasculature. Question mild CHF. Pleuroparenchymal scarring left base.. <Electronically signed by Wil Madsen > 06/11/20 [id number]
[2020-06-11 14:48] LABS: VENOUS BASE EXCESS 3.8 (-2.0-2.0); VENOUS HCO3 29.9 MEQ/L (23.0-27.0); VENOUS O2 SATURATION 94.3 % (60.0-80.0); VENOUS PARTIAL PRESSURE CO2 52.1 mmHg (38.0-50.0); VENOUS PARTIAL PRESSURE O2 72.1 mmHg (30.0-50.0); VENOUS PH 7.377 UNITS (7.330-7.430); VENOUS STANDARD HCO3 27.8 MEQ/L; VENOUS TOTAL CO2 31.5 MEQ/L (24.0-28.0)
[2020-06-11 14:54] LABS: BASO # 0.1 10^3/uL (0.0-0.2); BASO % 0.6 % (0.0-1.0); EOS # 0.1 10^3/uL (0.0-0.5); EOS % 1.5 % (0.0-3.0); HEMATOCRIT 34.4 % (36.0-47.0); HEMOGLOBIN 10.6 g/dl (12.0-15.5); LYMPH # 1.6 10^3/uL (1.5-5.0); LYMPH % 18.5 % (24.0-44.0); MEAN CORPUSCULAR HEMOGLOBIN 29.5 pg (27.0-33.0); MEAN CORPUSCULAR HGB CONC 30.8 g/dl (32.0-36.5); MEAN CORPUSCULAR VOLUME 95.8 fl (80.0-96.0); MONO # 0.7 10^3/uL (0.0-0.8); MONO % 7.4 % (2.0-8.0); NEUTROPHILS # 6.3 10^3/uL (1.5-8.5); NEUTROPHILS % 71.8 % (36.0-66.0); PLATELET COUNT, AUTOMATED 125 10^3/uL (150-450); RED BLOOD COUNT 3.59 10^6/uL (4.00-5.40); WHITE BLOOD COUNT 8.8 10^3/uL (4.0-10.0)
--- OUTSIDE RECORDS SUMMARY | 2020-06-11 15:01 | CCD ---
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 Z79.4 Active 083509643 Problem Cellulitis of right leg L03.115 Active 32902203 265884386 Problem Subacute osteomyelitis of right foot M86.271 Active 74623888307753802 Problem Closed displaced fracture of right calcaneus, unspecified portion of calcaneus, sequela S92.001S Active 13478670 Problem MRSA (methicillin resistant staph aureus) culture positive Z22.322 Active 363795686 Problem Tobacco use 305.1 Active 506427751 Problem Type 2 diabetes mellitus without complications E11 .9 Active 050943417 Problem 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 Active 406823322 Problem Lymphedema of both lower extremities I89.0 Act alli 77395421325510372 Problem Decubitus ulcer, heel, left, unstageable L89.620 Active 516458555 ALLERGIES Allergen (clinical drug ingredient) Drug/Non Drug Allergy do cumented on EMR Reaction Allergy Type Onset Date Status Latex (for allergy use only) rash, hives Drug Allergy Active ENCOUNTERS from 1945 to 2020-05-22 Encounter Location Date [facility] [address] [place] [address] Apr, Milli Cesar IMMUNIZATIONS Vaccine Route Administration Date Status Influenza (18 yrs & older) Flublok Unknown Apr 11, 2019 Others Influenza (High Dose 65 & up) Unknown Jun 03, 2016 Ot hers SOCIAL HISTORY Tobacco Use: Social History Observation Description Date Details (start date - stop date) Former Smoker Sex Assigned At : Social History Observation Description Sex Assigned At Unknown Alcohol Screening: Question Answer Notes Did you have a drink containing alcohol in the past year? No Points 0 Interpretation Negative Tobacco Use: Question Answer Notes Are you a: former smoker Additional Findings: Tobacco User Moderate cigarette smoker (10-19 cigs/day) How long has it been since you last smoked? 3-6 months REASON FOR REFERRAL No Information VITAL SIGNS No information MEDICATIONS Medication SIG (Take, Route, Frequency, Duration) Notes Start Da te End Date Status Insulin Glargine 100 UNIT/ML 20 units Subcutaneous bedtime Not-Taking Enema Disposable - as directed Rectal Active Bacid - as directed Orally Active Insulin Regular Human 100 UNIT/ML sliding scale Injection as directed Not-Taking Psfjsfzotb-Wawhsnaa-Bxuflaktf 0.25 MCG Active Folic Acid 1 MG 1 tablet Orally Once a day Not-Taking MiraLax - 1 packet mixed with 8 ounces of fluid Orally Once a da y as needed Not-Taking Levemir FlexTouch 100 UNIT/ML 20 units Subcutaneous before bedtime Active Glucagon Emergency 1 MG as directed Injection For FS BS < 60 and unable to take PO intake Active Atorvastatin Calcium 40 MG 1 tablet Orally Once a day for 30 day(s) Active Aspirin 81 MG 1 tablet Orally Once a day Active Lasix 80 MG 1 tablet Orally Once a day Not-Taking Novolin N 100 UNIT/ML 20 units Subcutaneous daily at 1200 Not-Taking Melatonin 5 MG 1 tablet at bedtime as needed with food Orally Once a day Not-Taking Acetaminophen 325 MG 2 tablets as needed Orally every 6 hrs Active Mag-Al 200-200 MG/5ML 10 ml as needed Orally daily as needed Not-Taking Multivitamin - 1 tablet Orally Once a day for 30 day(s) Active Spironolactone 25 MG 1 tablet Orally Twice a day Active Plavix 75 MG 1 tablet Orally Once a day for 30 day(s) Active Artificial Tear 1 DROP BOTH EYES Q2H PRN Active Lisinopril 40 MG 1 tab Orally Daily Not-Taking Protonix 40 MG 1 tablet Orally Once a day for 30 day(s) Active Vitamin B 12 500 MCG 2 tablet Orally Once a day Not-Taking Magnesium Hydroxide 800 MG/5ML 30 ml as needed Orally four times daily as needed Not-Taking Vancomycin HCl in Dextrose 500-5 MG/100ML as directed Intravenous Active HydrALAZINE HCl 50 MG 1 tablet Orally bid Active Isosorbide Dinitrate 20 MG 1 tablet Orally Twice a day for 30 day(s) Active Mirtazapine 7.5 MG 2 tablets at bedtime Orally Once a day for 30 day( s) Active Lantus 100 UNIT/ML 20 units Subcutaneous before bedtime Not-Taking Torsemide 10 MG 2 tablet Orally Once a day Active Metformin HCl 500 MG 1 tablet with meals Orally Twice a day Not-Taking Milk of Magnesia 400 MG/5ML 5 ml as needed Orally Daily as needed Active Ferrous Sulfate 325 (65 Fe) MG 1 tablet Orally Once a day Active AmLODIPine Besylate 10 MG 1 tablet Orally Once a day Not-Taking Coreg 6.25 MG Orally bid Active Zofran 4 MG 1 tablet Orally Once a day for 30 day(s) Active Elliott - as directed Orally Active Bisacodyl 10 MG 1 suppository as needed Rectal Once a day for 30 day( s) Active FLUoxetine HCl 20 MG 1and 1/2 capsule Orally Once a day Active Senna - as directed Orally Active Humulin N Pen Active PROCEDURES No Information RESULTS No Results REASON FOR VISIT No Information MEDICAL (GENERAL) HISTORY Type Description Date Medical History tobacco use Medical History right heel ulcer Medical History DM II Medical History HTN Medical History XEROSIS CUTIS Medical History CHRONIC VENOUS INSUFFICIENCY Medical History CKD STAGE 3 Medical History DYSPHAGIA Medical History CHF Medical History IRON DEFICIENCY ANEMIA Medical History VITAMIN B AND D DEFICIENCY Medical History DEPRESSION Medical History HYPERPARATHYROIDISM Medical History Charcot arthropathy right foot Medical History MRSA abscess with osteomyeli tis of the ankle right foot with foot collapse Medical History nonambulatory 2019 Surgical History 1976, 1973 Surgical History left breast lumpectomy, benign Surgical History partial hysterectomy Surgical History right ankle FX ORIF Surgical History right elbow fx ORIF Surgical History left foot amputation great toe and side of foot Summer 2015 Hospitalization History childbirth and surgery Hospitalization History infection Hospitalization History surgery r/t Goals Section No Information Health Concerns No Information MEDICAL EQUIPMENT No Information MENTAL STATUS No Information FUNCTIONAL STATUS No Information ASSESSMENTS No Information PLAN OF TREATMENT Next Appt Details Provider Name:Milli Cesar, 1-02-0 9 09:30:00 AM, [address] [place], [address], Insurance Providers Payer Name Payer Address Payer Phone Insured Name Patient Relati onship to Insured Coverage Start Date Coverage End Date [facility] [address] [facility] [address] TABITHA ALEXANDRA MEDICARE Part A and B [address] [facility] [phone] TABITHA ALEXANDRA MEDICAID [facility] [address] [facility] [address] TABITHA ALEXANDRA
--- OUTSIDE RECORDS SUMMARY | 2020-06-11 15:01 | CCD ---
Author Author [facility] Organization [facility] Address Unknown Phone Unavailable Care Team Providers Care Erp Manager Name Role Phone Milli Cesar Unavailable PROBLEMS Type Condition ICD9-CM Code [id number] Code Onset Dates Condition S tatus W/U Status Risk SNOMED Code Notes Problem Non-pressure chronic ulcer o f right heel and midfoot with fat layer exposed L97.412 Active confirmed 905325397 Problem Type 2 diabetes mellitus with foot ulcer E11.621 Active confirmed 391113371 Problem Charcot ankle, right M14.671 Active confirmed 216230487 Problem long-term current use of insulin Z79.4 Active conf irmed 648305526 Problem Cellulitis of right leg L03.115 Active confirme d 42725466170081387 Problem Subacute osteomyelitis of right foot M86.271 Act alli confirmed 07817632160268840 Problem Closed displaced fracture of right calcaneus, unspecified portion of calcaneus, sequela S92.001S Active confirmed 37669330 Problem MRSA (methicillin resistant staph aureus) culture positive Z22.322 Active confirmed 077598742 Problem Tobacco use 305.1 Active confirmed 15699031 0 Problem Type 2 diabetes mellitus without complications E11 .9 Active confirmed 082942586 Problem 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 Active confirmed 995685756 Problem Lymphedema of both lower extremities I89.0 Act alli confirmed 26882422081617824 Problem Decubitus ulcer, heel, left, unstageable L89.620 Active confirmed 426266360 ALLERGIES Allergen (clinical drug ingredient) Drug/Non Drug Allergy do cumented on EMR Reaction Allergy Type Onset Date Status Latex (for allergy use only) rash, hives Drug Allergy Active ENCOUNTERS from 1945 to 2020-05-26 Encounter Location Date Provider Diagnosis [facility] [address] [place] [id number] Apr, Milli Cesar MRSA (methicillin resistant staph aureus ) culture positive Z22.322 ; Subacute osteomyelitis of right foot M86.271 ; Decubitus ulcer, heel, left, unstageable L89.620 ; Charcot ankle, right M14.671 ; 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 and 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 card 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 of 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 Z79.4 IMMUNIZATIONS Vaccine Route Administration Date Status Influenza [...] REASON FOR REFERRAL No Information VITAL SIGNS Weight 233 lbs Apr, Height 61.5 in Apr, BMI 43.31 kg/m2 Apr, Heart Rate 75 /min Apr, Respiratory Rate 20 /min Apr, Temperature 96.4 degrees Fahrenheit Apr, Oximetry 93 RA Apr, Blood pressure systolic 130 mm Hg Apr, Blood pressure diastolic 72 mm Hg Apr, MEDICATIONS Medication SIG (Take, Route, Frequency, Duration) Notes Start Da te End Date Status Insulin Glargine 100 UNIT/ML 20 units Subcutaneous bedtime Not-Taking Enema Disposable - as directed Rectal Active Bacid - as directed Orally Active Insulin Regular Human 100 UNIT/ML sliding scale Injection as directed Not-Taking Ghbofmpcfq-Bdymtdcg-Kpvpnhhus 0.25 MCG Active Folic Acid 1 MG [...] Information RESULTS No Results REASON FOR VISIT [phone] or [phone] [facility] Hospital Follow up MEDICAL (GENERAL) HISTORY Type Description Date Medical [...] No Information FUNCTIONAL STATUS No Information ASSESSMENTS Encounter Date Diagnosis Assessment Notes Treatment Notes Treatm ent Clinical Notes Apr, MRSA (methicillin resistant staph aureus) culture positive (ICD-10 - Z22.322) Apr, Subacute osteomyelitis of right foot (ICD-10 - M 86.271) Patient is currently week #3 of IV vancomycin doing very well end of therapy anticipated to stop 06/11/2020. Wound has completely closed there is no purulence redness or swelling. Patient is nonambulatory for the past 9 months and is not motivated to get better. She is on IV vancomycin 500 mg every 24 hours CRP 0.4 down from 8.35 ESR 87 down from 128. She will continue with IV vancomycin for another 2 weeks. Hopefully to discontinue treatment before the end of 6 weeks as she had considerable clinical improvement. Into new weekly labs vancomycin trough = 15.8 creatinine 1.4 Apr, Decubitus ulcer, heel, left, unstageable (ICD-10 - L89.620) Apr, Charcot ankle, right (ICD-10 - M14.671) Apr, Type 2 diabetes mellitus wit h other diabetic arthropathy (ICD-10 - E11.618) Apr, long-term current use of insulin (ICD-10 - Z79.4 ) PLAN OF TREATMENT Treatment Notes Assessment Notes Clinical Notes Subacute osteomyelitis of right foot Pat ient is currently week #3 of IV vancomycin doing very well end of therapy anticipated to stop 06/11/2020. Wound has completely closed there is no purulence redness or swelling. Patient is nonambulatory for the past 9 months and is not motivated to get better. She is on IV vancomycin 500 mg every 24 hours CRP 0.4 down from 8.35 ESR 87 down from 128. She will continue with IV vancomycin for another 2 weeks. Hopefully to discontinue treatment before the end of 6 weeks as she had considerable clinical improvement.Into new weekly labs vancomycin trough = 15.8 creatinine 1.4 Next Appt Details 2 Weeks Reason: Provider Name:Milli Cesar, 2020-05-0 9 09:30:00 AM, [address] [place], [address], Insurance Providers Payer Name Payer Address Payer Phone Insured Name Patient Relati onship to Insured Coverage Start Date Coverage End Date MEDICARE Part A and B [address] [facility] [id number] TABITHA ALEXANDRA MEDICAID [employer] [address] [facility] [address] TABITHA ALEXANDRA [facility] [address] [facility] [address] TABITHA ALEXANDRA
--- OUTSIDE RECORDS SUMMARY | 2020-06-11 15:01 | CCD | Continuity of Care Document ---
Author Author Derrick HAWKINS MD Organization Unknown Address [address] [place] [address] Phone [phone] Care Team Providers Care Nat Instructor Name Role Phone Sydney Grant MD AUT[facility] [phone] Rambo Lawson MD [facility] [phone] Problems Active Problems Provider Date Closed fracture of shaft of radius Onset : 02/14/1999 Social History Type Date Description Comments Sex Unknown Allergies, Adverse Reactions, Alerts Active Allergies Reaction Severity Comments Date Latex 06/05/2016 Medications Active Medications SIG Qnty Indications Ordering Provide r Date Alprazolam 0.25mg Tablets one pill by mouth twice a day as needed for anxiety Unknown Trimethobenzamide HCL 300mg Capsules Unknown Metformin HCL 500mg Tablets 1 by mouth twice a day Unknown Lisinopril 20mg Tablets 1 by mouth every day Unknown Folic Acid 1mg Tablets 1 by mouth every day Unknown Ferrous Sulfate 325mg Tablets Unknown Aspirin 81mg Tablets DR 1 by mouth every day Unknown Amlodipine Besylate 10mg Tablets 1 by mouth every day Unknown Humalog Solution Cartridge Unknown Polyethylene Glycol 300 17gm Liquid Unknown Melatonin 5mg Capsules Unknown Acetaminophen 325mg Tablets Unknown Lantus Solution use as directed for pump failure Unknown Immunizations Description No Information Available Vital Signs Date Vital Result Comment 05/15/2016 11:15am Body Temperature 98.0 F Height 64 inches 5'4" Weight 179.00 lb BMI (Body Mass Index) 30.7 kg/m2 Results Description No Information Available Procedures Date Code Description Status 05/09/2020 46955 I & D Abscess Simple Completed Medical Devices Description No Information Available Encounters Type Date Location Provider Dx Diagnosis Office Visit 05/09/2020 4:09p [place] Avery Hawkins MD L02.415 Cutaneous abscess of right lower limb E11.610 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
--- OUTSIDE RECORDS SUMMARY | 2020-06-11 15:02 | CCD | Continuity of Care Document ---
Author Organization Unknown Address Unknown Phone Unavailable Care Team Providers Care Supervisor [facility] Name Role Phone [facility] AUTM [phone] Problems Description No Information Available Social History Type Date Description Comments Sex Unknown Allergies, Adverse Reactions, Alerts Description No Information Available Medications Description No Information Available Immunizations Description No Information Available Vital Signs Description No Information Available Results Test Acquired Date Facility Test Result H/L Range Note Influenza A/B RSV Covid Amp 04/30/[address] [address] [phone] Influenza A Amplification NEGATIVE Normal Negati ve 1 Influenza B Amplification NEGATIVE Normal Negative 2 RSV Amplification NEGATIVE Normal Negative 3 Sars Covid-19 Amplification NEGATIVE Normal Negative 4 CBC With Differential 04/30/2020 [facility] [address] [place] [address] [phone] White Blood Count 11.1 10 High 4.0-10.0 Red Blood Count 2.98 10 Low 4.00-5.40 Hemoglobin 8.2 g/dL Low 12.0-15.5 Hematocrit 27.9 % Low 36.0-47.0 Mean Corpuscular Volume 93.6 fl Normal 80.0-96.0 Mean Corpuscular Hemoglobin 27.5 pg Normal 27.0-33.0 Mean Corpuscular HGB Conc 29.4 g/dL Low 32.0-36.5 Red Cell Distribution Width 19.2 % High 11.5-14.5 Platelet Count, Automated 201 10 Normal 150-450 Neutrophils % 75.1 % High 36.0-66.0 Lymph % 14.7 % Low 24.0-44.0 Yell % 7.0 % High 0.0-5.0 Eos % 1.5 % Normal 0.0-3.0 Baso % 0.5 % Normal 0.0-1.0 Immature Granulocyte % 1.2 % Normal 0-3.0 Nucleated Red Blood Cell % 0.0 % Normal 0-0 Neutrophils # 8.3 10 Normal 1.5-8.5 Lymph # 1.6 10 Normal 1.5-5.0 Yell # 0.8 10 Normal 0.0-0.8 Eos # 0.2 10 Normal 0.0-0.5 Baso # 0.1 10 Normal 0.0-0.2 Prothrombin Time/Inr 04/30/2020 [facility] enter [address] [id number] [phone] Prothrombin Time 15.6 seconds High 12.5-14.3 Inr 1.21 Normal 5 Laboratory test finding 04/30/2020 [place] [id number] [phone] Partial Thromboplastin Time 34.2 seconds Normal 24 .2-38.5 Lactic Acid Sepsis Protocol 0.9 mmol/L Normal 0.4-2.0 6 Cardiac Marker Panel 04/30/2020 [facility] enter [address] [place] [address] [phone] CPK Creatine Phosphokinase 16 U/L Low 26-19 2 CK-MB Value Mass < 1.0 NG/ML Normal <3.6 MB/CK Relative Index 6.25 High < Or =4 7 Troponin I < 0.02 NG/ML Normal < 0.10 8 Liver Profile 04/30/2020 [facility] nter [address] [id number] [phone] Ast/Sgot 9 U/L Normal 7-37 Alt/SGPT 20 U/L Normal 12-78 Alkaline Phosphatase 80 U/L Normal 45-117 Bilirubin,Total 0.2 mg/dL Normal 0.2-1.0 Bilirubin,Direct < 0.1 mg/dL Normal 0.0-0.2 Total Protein 5.8 GM/DL Low 6.4-8.2 Albumin 1.7 GM/DL Low 3.2-5.2 Albumin/Globulin Ratio 0.4 Low 1.2-2.2 Basic Metabolic Profile 04/30/[address], [place] [id number] [phone] Glucose, Fasting 252 mg/dL High 70-100 Blood Urea Nitrogen 60 mg/dL High 7-18 Creatinine For GFR 1.61 mg/dL High 0.55-1.30 Glomerular Filtration Rate 33.5 Low >39 9 Sodium Level 140 mEq/L Normal 136-145 Potassium Serum 4.7 mEq/L Normal 3.5-5.1 Chloride Level 112 mEq/L High 98-107 Carbon Dioxide Level 21 mEq/L Normal 21-32 Anion Gap 7 mEq/L Low 8-16 Calcium Level 8.5 mg/dL Low 8.8-10.2 Laboratory test finding 04/30/[address] [address] [phone] Amylase 26 U/L Normal 25-115 C Reactive Protein Quantitativ 8.35 mg/dL High 0.00-0.30 Type & Screen -Incl Blood Type,Eduardo,AB SC 04/30/[address] [address] [phone] Blood Type A POSITIVE Normal AB Screen (Indirect Tab)Vis NEGATIVE Normal CBC With Differential 03/27/[address] [address] [phone] White Blood Count 8.9 10 Normal 4.0-10.0 Red Blood Count 2.98 10 Low 4.00-5.40 Hemoglobin 7.7 g/dL Low 12.0-15.5 Hematocrit 26.6 % Low 36.0-47.0 Mean Corpuscular Volume 89.3 fl Normal 80.0-96.0 Mean Corpuscular Hemoglobin 25.8 pg Low 27.0-33.0 Mean Corpuscular HGB Conc 28.9 g/dL Low 32.0-36.5 Red Cell Distribution Width 15.1 % High 11.5-14.5 Platelet Count, Automated 249 10 Normal 150-450 Neutrophils % 70.7 % High 36.0-66.0 Lymph % 17.2 % Low 24.0-44.0 Yell % 8.2 % High 0.0-5.0 Eos % 1.0 % Normal 0.0-3.0 Baso % 0.8 % Normal 0.0-1.0 Immature Granulocyte % 2.1 % Normal 0-3.0 Nucleated Red Blood Cell % 0.0 % Normal 0-0 Neutrophils # 6.3 10 Normal 1.5-8.5 Lymph # 1.5 10 Normal 1.5-5.0 Yell # 0.7 10 Normal 0.0-0.8 Eos # 0.1 10 Normal 0.0-0.5 Baso # 0.1 10 Normal 0.0-0.2 Laboratory test finding 03/27/[address] [address] [phone] Erythrocyte Sedimentation Rate 125 mm/hr High 0 -30 Comprehensive Metabolic Profil 03/27/[address] [address] [phone] Glucose, Fasting 268 mg/dL High 70-100 Blood Urea Nitrogen 75 mg/dL High 7-18 Creatinine For GFR 1.84 mg/dL High 0.55-1.30 Glomerular Filtration Rate 28.7 Low >39 1 0 Sodium Level 138 mEq/L Normal 136-145 Potassium Serum 4.7 mEq/L Normal 3.5-5.1 Chloride Level 107 mEq/L Normal 98-107 Carbon Dioxide Level 26 mEq/L Normal 21-32 Anion Gap 5 mEq/L Low 8-16 Calcium Level 8.3 mg/dL Low 8.8-10.2 Ast/Sgot 12 U/L Normal 7-37 Alt/SGPT 19 U/L Normal 12-78 Alkaline Phosphatase 83 U/L Normal 45-117 Bilirubin,Total 0.2 mg/dL Normal 0.2-1.0 Total Protein 6.0 GM/DL Low 6.4-8.2 Albumin 1.8 GM/DL Low 3.2-5.2 Albumin/Globulin Ratio 0.4 Low 1.2-2.2 Laboratory test finding 03/27/[address] [address] [phone] C Reactive Protein Quantitativ 5.64 mg/dL High 0 .00-0.30 Laboratory test finding 02/21/[address] [address] [phone] Lactic Acid Sepsis Protocol 1.0 mmol/L Normal 0.4- 2.0 11 Cardiac Marker Panel 02/21/2020 [facility] enter [address] [place] [address] [phone] CPK Creatine Phosphokinase 73 U/L Normal 26-19 2 CK-MB Value Mass 1.4 NG/ML Normal <3.6 MB/CK Relative Index 1.92 Normal < Or =4 12 Troponin I < 0.02 NG/ML Normal < 0.10 13 Liver Profile 02/21/2020 [facility] Ce nter [address] [place], [place] [id number] [phone] Ast/Sgot 13 U/L Normal 7-37 Alt/SGPT 19 U/L Normal 12-78 Alkaline Phosphatase 75 U/L Normal 45-117 Bilirubin,Total 0.4 mg/dL Normal 0.2-1.0 Bilirubin,Direct 0.1 mg/dL Normal 0.0-0.2 Total Protein 6.1 GM/DL Low 6.4-8.2 Albumin 2.5 GM/DL Low 3.2-5.2 Albumin/Globulin Ratio 0.7 Low 1.2-2.2 1 Negative results do not prec lude influenza or RSV virus infection and should not be used as the sole basis for treatment or other patient management decisions. 2 Negative results do not prec lude influenza or RSV virus infection and should not be used as the sole basis for treatment or other patient management decisions. 3 Negative results do not prec lude influenza or RSV virus infection and should not be used as the sole basis for treatment or other patient management decisions. 4 A false negative result may occur if a specimen is improperly collected, transported or handled. False negative results may also occur if inadequate numbers of organisms are present in the specimen. As with any molecular test, mutations within the target regions of [employer] SARS-CoV-2 could affect primer and/or probe binding resulting in failure to detect the presence of virus. This test cannot rule out diseases caused by other bacterial or viral pathogens. DISCLAIMER: Testing was performed using the [employer] SARS-CoV-2 test. This test was developed and its performance characteristics determined by [employer]. This test has not been FDA cleared or approved. This test has been authorized by FDA under an Emergency Use Authorization (EUA). This test is only authorized for the duration of time the declaration that circumstances exist justifying the authorization of the emergency use of in vitro diagnostic tests for detection of SARS-CoV-2 virus and/or diagnosis of COVID-19 infection under section 564(b)(1) of the Act, 21 U.S.C. 360bbb-3(b)(1), unless the authorization is terminated or revoked sooner. 5 THERAPUTIC HUMAN INR VALUES INDICATIONS NORMAL RANGES PROPHYLAXIS/TREATMENT OF: VENOUS THROMBOSIS 2.0-3.0 PULMONARY EMBOLISM 2.0-3.0 PREVENTION OF SYSTEMIC EMBOLISM FROM: TISSUE HEART VALVES 2.0-3.0 ACUTE MYOCARDIAL INFARCTION 2.0-3.0 VALVULAR HEART DISEASE 2.0-3.0 ATRIAL FIBRILLATION 2.0-3.0 MECHANICAL VALVES(HIGH RISK) 2.5-3.5 RECURRENT MYOCARDIAL INFARCTION 2.5-3.5 6 Y/N query for Sepsis Lactate Rule: Y 7 DIAGNOSIS CRITERIA MMB ng/ml Relative Index (RI) NON-AMI < or = 5 N/A LOCKETT ZONE > 5 < or = 4 AMI > 5 > 4 8 Troponin I Reference Interva l for [employer] [place] LOCI: 99th Percentile= 0.00-0.045 ng/ml Risk Stratification: <= 0.10 ng/ml Decreased Risk for Adverse Clinical Events. 0.10-1.50 ng/ml Increased Risk for Adv erse Clinical Events. Evaluation of additional criterion and/or repeat testing in 2-6 hours is suggested to rule out myocardial damage. >= 1.50 ng/ml Indicative of Myocardial Injury. 9 Units are mL/min/1.73 m2 Chronic Kidney Disease Staging per NKF: Stage I & II GFR >=60 Normal to Mildly Decreased Stage III GFR 30-59 Moderately Decreased Stage IV GFR 15-29 Severely Decreased Stage V GFR <15 Very Little GFR Left ESRD GFR <15 on [employer] 10 Units are mL/min/1.73 m2 Chronic Kidney Disease Staging per NKF: Stage I & II GFR >=60 Normal to Mildly Decreased Stage III GFR 30-59 Moderately Decreased Stage IV GFR 15-29 Severely Decreased Stage V GFR <15 Very Little GFR Left ESRD GFR <15 on [employer] MA[employer]GER 11 Y/N query for Sepsis Lactate Rule: Y 12 DIAGNOSIS CRITERIA MMB ng/ml Relative Index (RI) NON-AMI < or = 5 N/A LOCKETT ZONE > 5 < or = 4 AMI > 5 > 4 13 Troponin I Reference Interva l for [employer] [place] LOCI: 99th Percentile= 0.00-0.045 ng/ml Risk Stratification: <= 0.10 ng/ml Decreased Risk for Adverse Clinical Events. 0.10-1.50 ng/ml Increased Risk for Adv erse Clinical Events. Evaluation of additional criterion and/or repeat testing in 2-6 hours is suggested to rule out myocardial damage. >= 1.50 ng/ml Indicative of Myocardial Injury. 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 and stage 1 through stage 4 chronic kidney disease, or unspecified chronic kidney disease Rambo Lawson MD 04/02/2020 I50.32 Chronic diastolic (congestive) h eart failure Rambo Lawson MD 04/02/2020 N18.4 Chronic kidney disease, stage 4 (severe) Rambo Lawson MD 04/02/2020 N25.81 Secondary hyperparathyroidism of renal origin Rambo Lawson MD 04/02/2020 F32.9 Major depressive disorder, singl e episode, unspecified Rambo Lawson MD 03/27/2020 L03.115 Cellulitis of right lower limb L boris Dupont,DO 03/27/2020 R41.82 Altered mental status, unspecifi ed Karla Dupont,DO 03/27/2020 M10.9 Gout, unspecified Karla Dupont,DO 03/27/2020 I50.32 Chronic diastolic (congestive) h eart failure Karla Dupont,DO 03/27/2020 E11.65 Type 2 diabetes mellitus with hy perglycemia Karla Dupont,DO 01/30/2020 E11.65 Type 2 diabetes mellitus with hy perglycemia Miranda Gutiérrez [employer] 01/30/2020 E11.40 Type 2 diabetes elvin itus with diabetic neuropathy, unspecified [facility] 01/30/2020 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 and stage 1 through stage 4 chronic kidney disease, or unspecified chronic kidney disease [facility] I50.32 Chronic diastolic [facility]congestive) [facility]2020 N18.3 Chronic kidney disease, stage 3 (moderate) [facility] 01/30/2020 N25.81 Secondary hyperparathyroidism of renal origin [facility] 01/30/2020 D50.9 Iron deficiency anemia, unspecif ied Miranda Marla, [facility] 01/30/2020 F32.9 Major depressive disorder, singl e episode, unspecified [facility] 01/30/2020 I73.9 Peripheral vascular disease, uns pecified [facility] Plan of Treatment No Information Available Functional Status Description No Information Available Mental Status Description No Information Available Referrals Description No Information Available
--- OUTSIDE RECORDS SUMMARY | 2020-06-11 15:02 | CCD ---
Author Author [facility] Organization [facility] Address Unknown Phone Unavailable Care Team Providers Care Inspector Wire Products Name Role Phone Fons, M Ginna SOCIAL SERVICES ANALYST Unavailable Unavailable Fons, M Ginna SOCIAL SERVICES ANALYST Unavailable Unavailable Fons, M Ginna SOCIAL SERVICES ANALYST Unavailable Unavailable Fons, M Ginna SOCIAL SERVICES ANALYST Unavailable Unavailable Fons, M Ginna SOCIAL SERVICES ANALYST Unavailable Unavailable Fons, M Ginna SOCIAL SERVICES ANALYST Unavailable Unavailable Fons, M Ginna SOCIAL SERVICES ANALYST Unavailable Unavailable Fons, M Ginna SOCIAL SERVICES ANALYST Unavailable Unavailable Fons, M Ginna SOCIAL SERVICES ANALYST Unavailable Unavailable Fons, M Ginna SOCIAL SERVICES ANALYST Unavailable Unavailable Fons, M Ginna SOCIAL SERVICES ANALYST Unavailable Unavailable Fons, M Ginna SOCIAL SERVICES ANALYST Unavailable Unavailable Fons, M Ginna SOCIAL SERVICES ANALYST Unavailable Unavailable Fons, M Ginna SOCIAL SERVICES ANALYST Unavailable Unavailable Fons, M Ginna SOCIAL SERVICES ANALYST Unavailable Unavailable Fons, M Ginna SOCIAL SERVICES ANALYST Unavailable Unavailable Fons, M Ginna SOCIAL SERVICES ANALYST Unavailable Unavailable Fons, M Ginna SOCIAL SERVICES ANALYST Unavailable Unavailable Fons, M Ginna SOCIAL SERVICES ANALYST Unavailable Unavailable Fons, M Ginna SOCIAL SERVICES ANALYST Unavailable Unavailable Fons, M Ginna SOCIAL SERVICES ANALYST Unavailable Unavailable Fons, M Ginna SOCIAL SERVICES ANALYST Unavailable Unavailable Fons, M Ginna SOCIAL SERVICES ANALYST Unavailable Unavailable Fons, M Ginna SOCIAL SERVICES ANALYST Unavailable Unavailable Fons, M Ginna SOCIAL SERVICES ANALYST Unavailable Unavailable Fons, M Ginna SOCIAL SERVICES ANALYST Unavailable Unavailable Fons, M Ginna SOCIAL SERVICES ANALYST Unavailable Unavailable Fons, M Ginna SOCIAL SERVICES ANALYST Unavailable Unavailable Fons, M Ginna SOCIAL SERVICES ANALYST Unavailable Unavailable Fons, M Ginna SOCIAL SERVICES ANALYST Unavailable Unavailable Fons, M Ginna SOCIAL SERVICES ANALYST Unavailable Unavailable Fons, M Ginna SOCIAL SERVICES ANALYST Unavailable Unavailable Fons, M Ginna SOCIAL SERVICES ANALYST Unavailable Unavailable Fons, M Ignna SOCIAL SERVICES ANALYST Unavailable Unavailable Fons, M Ginna SOCIAL SERVICES ANALYST Unavailable Unavailable Fons, M Ginna SOCIAL SERVICES ANALYST Unavailable Unavailable Fons, M Ginna SOCIAL SERVICES ANALYST Unavailable Unavailable Fons, M Ginna SOCIAL SERVICES ANALYST Unavailable Unavailable Fons, M Ginna SOCIAL SERVICES ANALYST Unavailable Unavailable Fons, M Ginna SOCIAL SERVICES ANALYST Unavailable Unavailable Fons, M Ginna SOCIAL SERVICES ANALYST Unavailable Unavailable Fons, M Ginna SOCIAL SERVICES ANALYST Unavailable Unavailable Fons, M Ginna SOCIAL SERVICES ANALYST Unavailable Unavailable Fons, M Ginna SOCIAL SERVICES ANALYST Unavailable Unavailable Fons, M Ginna SOCIAL SERVICES ANALYST Unavailable Unavailable Fons, M Ginna SOCIAL SERVICES ANALYST Unavailable Unavailable Fons, M Ginna SOCIAL SERVICES ANALYST Unavailable Unavailable Fons, M Ginna SOCIAL SERVICES ANALYST Unavailable Unavailable Fons, M Ginna SOCIAL SERVICES ANALYST Unavailable Unavailable Fons, M Ginna SOCIAL SERVICES ANALYST Unavailable Unavailable Fons, M Ginna SOCIAL SERVICES ANALYST Unavailable Unavailable Fons, M Ginna SOCIAL SERVICES ANALYST Unavailable Unavailable Fons, M Ginna SOCIAL SERVICES ANALYST Unavailable Unavailable Fons, M Ginna SOCIAL SERVICES ANALYST Unavailable Unavailable Fons, M Ginna SOCIAL SERVICES ANALYST Unavailable Unavailable Fish, Ivis Varela MD Unavailable Unavailable Fish, Ivis Varela MD Unavailable Unavailable Fish, Ivis Varela MD Unavailable Unavailable Fish, Ivis Varela MD Unavailable Unavailable Fish, Ivis Varela MD Unavailable Unavailable Fish, Ivis Varela MD Unavailable Unavailable Fish, Ivis Varela MD Unavailable Unavailable Fish, Ivis Varela MD Unavailable Unavailable Fish, Ivis Varela MD Unavailable Unavailable Fish, Ivis Varela MD Unavailable Unavailable Fish, Ivis Varela MD Unavailable Unavailable Fish, Ivis Varela MD Unavailable Unavailable Fish, Ivis Varela MD Unavailable Unavailable Fish, Ivis Varela MD Unavailable Unavailable Fish, Ivis Varela MD Unavailable Unavailable Fish, Ivis Varela MD Unavailable Unavailable Fish, Ivis Varela MD Unavailable Unavailable Fish, Ivis Varela MD Unavailable Unavailable Fish, Ivis Varela MD Unavailable Unavailable Fish, Ivis Varela MD Unavailable Unavailable Fish, B Avery FARFAN Unavailable Unavailable Fish, B Avery FARFAN Unavailable Unavailable Fish, B Avery FARFAN Unavailable Unavailable Fish, B Avery FARFAN Unavailable Unavailable Fish, B Avery FARFAN Unavailable Unavailable Fish, B Avery FARFAN Unavailable Unavailable Fish, B Avery FARFAN Unavailable Unavailable Fish, B Avery FARFAN Unavailable Unavailable Fish, B Avery FARFAN Unavailable Unavailable Fish, B Avery FARFAN Unavailable Unavailable Fish, B Avery FARFAN Unavailable Unavailable Fish, B Avery FARFAN Unavailable Unavailable Fish, B Aveyr FARFAN Unavailable Unavailable Fish, B Avery FARFAN Unavailable Unavailable Fish, B Avery FARFAN Unavailable Unavailable Fish, B Avery FARFAN Unavailable Unavailable Fish, B Avery FARFAN Unavailable Unavailable Fish, B Avery FARFAN Unavailable Unavailable Fish, B Avery FARFAN Unavailable Unavailable Fish, B Avery FARFAN Unavailable Unavailable Fish, B Avery FARFAN Unavailable Unavailable Fish, B Avery FARFAN Unavailable Unavailable Fish, B Avery FARFAN Unavailable Unavailable Fish, B Avery FARFAN Unavailable Unavailable Fish, B Avery FARFAN Unavailable Unavailable Fish, B Avery FARFAN Unavailable Unavailable Fish, B Avery FARFAN Unavailable Unavailable Fish, B Avery FARFAN Unavailable Unavailable Fish, B Avery FARFAN Unavailable Unavailable Fish, B Avery FARFAN Unavailable Unavailable Fish, B Avery FARFAN Unavailable Unavailable Fish, B Avery FARFAN Unavailable Unavailable Fish, B Avery FARFAN Unavailable Unavailable [place], N Pramod INSTALLATION SUPERVISOR Unavailable Unavailable Kourtney, N Pramod INSTALLATION SUPERVISOR Unavailable Unavailable Kourtney, N Praomd INSTALLATION SUPERVISOR Unavailable Unavailable [place], N Pramod INSTALLATION SUPERVISOR Unavailable Unavailable Kourtney, N Pramod INSTALLATION SUPERVISOR Unavailable Unavailable Kourtney, N Pramod INSTALLATION SUPERVISOR Unavailable Unavailable [place], N Pramod INSTALLATION SUPERVISOR Unavailable Unavailable [place], N Pramod INSTALLATION SUPERVISOR Unavailable Unavailable Kourtney, N Pramod INSTALLATION SUPERVISOR Unavailable Unavailable [place], N Pramod INSTALLATION SUPERVISOR Unavailable Unavailable Kourtney, N Pramod INSTALLATION SUPERVISOR Unavailable Unavailable [place], N Pramod INSTALLATION SUPERVISOR Unavailable Unavailable Kourtney, N Pramod INSTALLATION SUPERVISOR Unavailable Unavailable Kourtney, N Pramod INSTALLATION SUPERVISOR Unavailable Unavailable [place], N Pramod INSTALLATION SUPERVISOR Unavailable Unavailable [place], N Pramod INSTALLATION SUPERVISOR Unavailable Unavailable [place], N Pramod INSTALLATION SUPERVISOR Unavailable Unavailable Kourtney, N Pramod INSTALLATION SUPERVISOR Unavailable Unavailable [place]ourtney, N Pramod INSTALLATION SUPERVISOR Unavailable Unavailable [place], N Pramod INSTALLATION SUPERVISOR Unavailable Unavailable [place]ourt[place], N Pramod INSTALLATION SUPERVISOR Unavailable Unavailable [place], N Pramod INSTALLATION SUPERVISOR Unavailable Unavailable [place], N Pramod INSTALLATION SUPERVISOR Unavailable Unavailable [place], N Pramod INSTALLATION SUPERVISOR Unavailable Unavailable Kourtney, N Pramod INSTALLATION SUPERVISOR Unavailable Unavailable [place], N Pramod INSTALLATION SUPERVISOR Unavailable Unavailable [place], N Pramod INSTALLATION SUPERVISOR Unavailable Unavailable [place], N Pramod INSTALLATION SUPERVISOR Unavailable Unavailable [place], N Pramod INSTALLATION SUPERVISOR Unavailable Unavailable [place], N Pramod INSTALLATION SUPERVISOR Unavailable Unavailable [place]ourt[place], N Pramod INSTALLATION SUPERVISOR Unavailable Unavailable Re-disclosure Warning The records that you are about to access may contain information from federally-assisted alcohol or drug abuse programs. If such information is present, then the following federally mandated warning applies: This information has been disclosed to you from records protected by federal confidentiality rules (42 CFR part 2). The federal rules prohibit you from making any further disclosure of this information unless further disclosure is expressly permitted by the written consent of the person to whom it pertains or as otherwise permitted by 42 CFR part 2. A general authorization for the release of medical or other information is NOT sufficient for this purpose. The Federal rules restrict any use of the information to criminally investigate or prosecute any alcohol or drug abuse patient.The records that you are about to access may contain highly sensitive health information, the redisclosure of which is protected by Article 27-F of the [facility] Public Health law. If you continue you may have access to information: Regarding HIV / AIDS; Provided by facilities licensed or operated by the [facility] Office of Mental Health; or Provided by the [facility] Office for People With Developmental Disabilities. If such information is present, then the following [facility] mandated warning applies: This information has been disclosed to you from confidential records which are protected by state law. State law prohibits you from making any further disclosure of this information without the specific written consent of the person to whom it pertains, or as otherwise permitted by law. Any unauthorized further disclosure in violation of state law may result in a fine or longterm sentence or both. A general authorization for the release of medical or other information is NOT sufficient authorization for further disc losure. Allergies and Adverse Reactions Type Description Substance Reaction Status Data Source(s ) Latex (for allergy use only) Latex (for allergy use only) La tristan (for allergy use only) rash, hives Active eCW1 ([facility]) Latex (for allergy use only) Latex (for allergy use only) La tristan (for allergy use only) rash, hives Active eCW1 ([facility]) Latex (for allergy use only) Latex (for allergy use only) La tristan (for allergy use only) rash, hives Active eCW1 ([facility]) Encounters Encounter Providers Location Date Indications Data Source(s ) Outpatient Attender: Pramod ALLEN-DARIA 021 12:00:00 AM EST - 05/27/2020 11:30:15 AM EST [facility] TeleMedicine Phone E/M by Leydi 21-[address] [place] [address] 05/21/2020 12:00:00 AM EST eCW1 ([facility]) Unknown [address] [place] [address] 05/21/2020 12:00:00 AM EST eCW1 ([facility]) Outpatient Attender: Avery Butcher MD Physical Therapy 05/09/2020 0 3:09:00 PM EST MEDENT ([facility]) Outpatient 06/27/2019 03:07:00 PM EST [facility] [address] [place] [address] 06/21/2019 12:00:00 AM EST eCW1 ([facility]) [facility] [address] [place], [place] [id number] 05/23/2019 12:00:00 AM EST eCW1 ([facility]) [facility] [address] [place], [place] [id number] 05/16/2019 12:00:00 AM EST eCW1 ([facility]) [facility] [address] [place] [address] 05/09/2019 12:00:00 AM EST eCW1 ([facility]) Outpatient 05/04/2019 03:40:00 PM EST [facility] [address] [place], [place] [id number] 05/02/2019 12:00:00 AM EST eCW1 ([facility]) Outpatient Attender: Pramod Oconnell NPAttender: Ginna Briseno JP.WAT-[email or web address] 04/17/2019 10:57:27 AM EST [facility] [address] [place] [address] 04/17/2019 12:00:00 AM EST eC1 ([facility]) [facility] [address] [place] [address] 04/14/2019 12:00:00 AM EST eCW1 ([facility]) Medications Medication Brand Name Start Date Product Form Dose Route Admi nistrative Instructions Pharmacy Instructions Status Indications Reaction Description Data Source(s) 100 unit/mL (3 mL) 04/06/2020 12:00:00 AM EST insulin pen 3 INJECT 40UNITS UNDER THE SKIN IN THE MORNING INJECT 40UNITS UNDER THE SKIN IN THE MORNING SOLD: 04/06/2020 [facility] 3 ML Insulin Lispro 100 UNT/ML Pen Injec tor [Humalog] HUMALOG KWIKPEN 100 UNIT/ML SOPN HUMALOG KWIKPEN 100 UNIT/ML SOPN 03/23/2020 12:00:00 AM EST active [facility] Spironolactone 25 MG Oral Tablet spironolactone (ALDAC TONE) 25 MG tablet spironolactone (ALDACTONE) 25 MG tablet 03/14/2020 12:00:00 AM EST active [facility] pantoprazole 40 MG Delayed Release Oral Tablet PANTOPRAZOLE SODIUM 03/10/2020 12:00:00 AM EST tablet,delayed release (DR/EC) 1 T CAYETANO ONE TABLET BY MOUTH TWICE A DAY TAKE ONE TABLET BY MOUTH TWICE A DAY SOLD: 03/10/2020 [facility] pantoprazole 40 MG Delayed Release Oral Tablet pantoprazole (PROTONIX) 40 MG tablet pantoprazole (PROTONIX) 40 MG tablet 03/10/2020 12:00:00 AM EST [facility] atorvastatin 40 MG Oral Tablet atorvastatin (LIPITOR) 40 MG tablet atorvastatin (LIPITOR) 40 MG tablet 03/08/2020 12:00:[address] [facility] clopidogrel 75 MG Oral Tablet clopidogrel (PLAVIX) 75 MG tablet clopidogrel (PLAVIX) 75 MG tablet 03/08/2020 12:00:00 AM EST a [facility] Fluoxetine 10 MG Oral Capsule FLUoxetine (PROZAC) 10 M G capsule FLUoxetine (PROZAC) 10 MG capsule 03/08/2020 12:00:00 AM EST 30 mg active 30 mg [facility] Isosorbide Dinitrate 20 MG Oral Tablet i sosorbide dinitrate (ISORDIL) 20 MG tablet isosorbide dinitrate (ISORDIL) 20 MG tablet 03/08/2020 12:00:00 AM EST active [facility] Hydralazine Hydrochloride 50 MG Oral Tab let hydrALAZINE (APRESOLINE) 50 MG tablet hydrALAZINE (APRESOLINE) 50 MG tablet 03/08/2020 12:00:[address] [facility] ferrous gluconate 324 MG Oral Tablet ferrous gluconate (FERGON) 324 MG tablet ferrous gluconate (FERGON) 324 MG tablet 03/03/2020 12:00:00 AM EST active TAKE ONE TABLET BY MOUTH EVERY D AY START TODAY [facility] 25 mg 03/03/2020 12:00:00 AM EST tablet 5 TAKE ONE TABLET BY MOUTH EVERY DAY STARTING 03/03/2020 TAKE ONE TABLET BY MOUTH EVERY DAY STARTING 03/03/2020 SOLD: 03/03/2020 [facility] 324 mg (38 mg iron) 03/03/2020 12:00:00 AM EST tablet 5 TAKE ONE TABLET BY MOUTH EVERY DAY START TODAY TAKE ONE TABLET BY MOUTH EVERY DAY START TODAY SOLD: 03/03/2020 [facility] Ondansetron 4 MG Oral Tablet ondansetron (ZOFRAN) 4 MG tablet ondansetron (ZOFRAN) 4 MG tablet 03/03/2020 12:00:00 AM EST ac tive [facility] Cephalexin 500 MG Oral Capsule CEPHALEXIN 02/20/2020 12:00:00 AM EDT capsule 2 TAKE ONE CAPSULE BY MOUTH TWICE A DAY FOR 1 WEEK TAKE ONE CAPSULE BY MOUTH TWICE A DAY FOR 1 WEEK SOLD: 02/20/2020 [facility] 25 mg 08/02/2019 12:00:00 AM EDT tablet 3 TAKE 1/2 TABLET (12.5MG) BY MOUTH DAILY FOR CHF TAKE 1/2 TABLET (12.5MG) BY MOUTH DAILY FOR CHF SOLD: 2019 [facility] 250 mg 06/17/2019 12:00:00 AM EST capsule 14 TAKE ONE CAPSULE BY MOUTH EVERY 12 HOURS FOR 7 DAYS TAKE ONE CAPSULE BY MOUTH EVERY 12 HOURS FOR 7 DAYS SO LD: 06/17/2019 [facility] Hydralazine Hydrochloride 100 MG Oral Ta blet hydrALAZINE (APRESOLINE) 100 MG tablet hydrALAZINE (APRESOLINE) 100 MG tablet 100 mg Oral aborted Take 100 mg by mouth 3 (three) times a day [facility] Insurance Providers Payer name Policy type / Coverage type Policy ID Covered green party ID Covered green party's relationship to martinez Policy Martinez Plan Information [facility] [id number] SP [id number] EMEDNY [id number] SP [id number] MEDICARE [id number] SP [id number] MEDICARE [id number] Kathleen [id number] N49 MEDICARE [id number] [employer] [id number] MEDICAID M [id number] S [id number] MEDICARE C [id number] S [id number] [id number] [facility] [id number] SP [id number] [facility] [id number] SP [id number] [facility] [id number] SP [id number] MEDICAID [id number] [employer] [id number] SP [id number] MEDICARE [id number] A [facility] [id number] MEDICARE [id number] SP [id number] A MEDICARE [id number] SP [id number] [facility] [id number] SP [id number] MEDICARE [id number] SP [id number] A MEDICAID -O/P [id number] 18 [id number] MEDICARE PART A -O/P [id number] 18 [id number] [facility] -O/P [id number] 18 [id number] [facility] [id number] SP [id number] [facility] [id number] S [id number] [facility] [id number] SP [id number] MEDICARE [id number] SP [id number] A MEDICARE - [place] MCR [id number] S [id number] [facility] COMM CONTR [id number] S [id number] [facility] (pr) Commercial [id number] Self [id number] [facility] [facility] (pr) Commercial [id number] Self [id number] [employer] [id number] SP [id number] [facility] (pr) Commercial [id number] Self [id number] [facility] (pr) Commercial Self Problems, Conditions, and Diagnoses Code Display Name Description Problem Type Effective Dates Data Source(s) L89.620 [id number] Decubitus ulcer, heel, left, unstageable Problem 05/21/2020 12:00:00 AM EST eCW1 ([facility]) Z22.322 [id number] MRSA (methicillin resistant stap h aureus) culture positive Problem 05/21/2020 12:00:00 AM EST eCW1 ([facility]) M86.271 [id number] Subacute osteomyelitis of right foot Problem 05/21/2020 12:00:00 AM EST eCW1 ([facility]) R60.0 Localized edema Localized edema [id number] 04/17/2019 12:0 0:00 AM [facility] I10 Hypertension Hypertension [id number] 04/17/2019 12:00:00 A M [facility] I10 Essential (primary) hypertension Essential (primary) h ypertension Diagnosis 05/27/2020 10:51:42 AM [facility] R60.0 Localized edema Localized edema Diagnosis 05/27/2020 10:5 1:42 AM [facility] Surgeries/Procedures Procedure Description Date Indications Data Source(s) INCISION & DRAINAGE ABSCESS SIMPLE/SINGLE 05/09/2020 1 2:00:00 AM EST MEDTHERESE ([facility]) Colonoscopy 09/26/2019 12:00:00 AM RICKI RUSSELL ([facility]) Office Visit, Est Pt., Level 2 FC 05/09/2019 12:00:00 AM EST eCW1 ([facility]) Office Visit, Est Pt., Level 2 PC 05/09/2019 12:00:00 AM EST eCW1 ([facility]) ZAY SUBQ TISSUE 20 SQ CM/< 04/17/2019 12:00:00 AM EST eCW1 ([facility]) Results ID Date Data Source [id number] 06/05/2020 12:00:00 PM EST [facility] Name Value Range Interpretation Code Description Data Jacqui rce(s) Supporting Document(s) SARS coronavirus 2 RNA Not Detected [facility] [place] This lab was ordered by [facility] and reported by [facility]. ID Date Data Source [id number] 05/29/2020 10:30:00 AM EST [facility] Name Value Range Interpretation Code Description Data Jacqui rce(s) Supporting Document(s) SARS coronavirus 2 RNA Not Detected [facility] [place] This lab was ordered by [facility] and reported by [facility]. ID Date Data Source [id number] 05/22/2020 09:15:00 AM EST [facility] Name Value Range Interpretation Code Description Data Jacqui rce(s) Supporting Document(s) SARS coronavirus 2 RNA Not Detected [facility] [place] This lab was ordered by [facility] and reported by [facility]. ID Date Data Source [id number] 05/15/2020 10:00:00 AM EST [facility] Name Value Range Interpretation Code Description Data Jacqui rce(s) Supporting Document(s) SARS coronavirus 2 RNA Not Detected [facility] [place] This lab was ordered by [facility] and reported by [facility]. ID Date Data Source [id number] 05/08/2020 09:52:00 AM EST [facility] Name Value Range Interpretation Code Description Data Jacqui rce(s) Supporting Document(s) SARS coronavirus 2 RNA [Presence] in Res piratory specimen by TIMMY with probe detection NEGATIVE [facility] This lab was ordered by [facility] a nd reported by [facility]. ID Date Data Source [id number] 04/30/2020 12:46:00 PM EST MEDENT ([facility]) Name Value Range Interpretation Code Description Data Jacqui rce(s) Supporting Document(s) Influenza B Amplification Laboratory test result MEDENT ([facility]) Negative results do not preclude influen za or RSV virus infection and should not be used as the sole basis for treatment or other patient management decisions. Influenza A Amplification Laboratory test result MEDENT ([facility]) Negative results do not preclude influen za or RSV virus infection and should not be used as the sole basis for treatment or other patient management decisions. Laboratory test finding (navigational concept) Laboratory test result MEDENT ([facility]) A false negative result may occur if a s pecimen is improperly collected, transported or handled. False [...] pathogens. DISCLAIMER: Testing was performed using the [employer] SARS-CoV-2 test. This test was developed and its performance characteristics determined by [employer]. This test has not been FDA cleared [...] the authorization is terminated or revoked sooner. RSV Amplification Laboratory test result MEDENT ([facility]) Negative results do not preclude influen za or RSV virus infection and should not be used as the sole basis for treatment or other patient management decisions. ID Date Data Source [id number] 04/30/2020 12:46:00 PM EST [facility] Name Value Range Interpretation Code Description Data Jacqui rce(s) Supporting Document(s) SARS coronavirus 2 RNA [Presence] in Res piratory specimen by TIMMY with probe detection NEGATIVE [facility] This lab was ordered by [facility] a nd reported by [facility]. ID Date Data Source [id number] 04/30/2020 12:39:00 PM EST [facility] ([facility]) Name Value Range Interpretation Code Description Data Jacqui rce(s) Supporting Document(s) Blood Type Laboratory test result MED[facility] ([facility]) AB Screen (Indirect Tab)Vis Laboratory test result [facility]) ID Date Data Source [id number] 04/30/2020 12:39:00 PM EST [facility] ([facility]) Name Value Range Interpretation Code Description Data Jacqui rce(s) Supporting Document(s) Amylase [Enzymatic activity/volume] in Serum or Plasma 26 U/L 25- 115 [facility] ([facility]) C reactive protein [Mass/volume] in Serum or Plasma by High sensitivity method 8.35 mg/dL 0.00-0.30 [facility] ([facility] ID Date Data Source [id number] 04/30/2020 12:39:00 PM EST [facility] ([facility]) Name Value Range Interpretation Code Description Data Jacqui rce(s) Supporting Document(s) Glucose, Fasting 252 mg/dL 70-100 MED[facility] ([facility]) Blood Urea Nitrogen 60 mg/dL 7-18 MEDENT ([facility]) Creatinine For GFR 1.61 mg/dL 0.55-1.30 MED[facility] ([facility]) Sodium Level 140 meq/L 136-145 MEDENT ([facility]) Potassium Serum 4.7 meq/L 3.5-5.1 MED[facility] ([facility]) Glomerular Filtration Rate 33.5 MED ENT ([facility]) <content>Units are mL/min/1.73 m2</content>
<content></content>
<content>Chronic Kidney Disease Staging per NKF:</content>
<content></content>
<content>Stage I & II GFR >=60 Normal to Mildly Decreased</content>
<content>Stage III GFR 30- 59 Moderately Decreased</content>
<content>Stage IV GFR 15-29 Severely Decreased</content>
<content>Stage V GFR <15 Very Little GFR Left</content>
<content>ESRD GFR <15 on [employer]</content>
<content></content> Chloride Level 112 meq/L 98-107 [facility] ([facility]) Carbon Dioxide Level 21 meq/L 21-32 [facility] ([facility]) Anion Gap 7 meq/L 8-16 [facility] ([facility]) Calcium Level 8.5 mg/dL 8.8-10.2 [facility] ([facility]) ID Date Data Source [id number] 04/30/2020 12:39:00 PM EST [facility] ([facility]) Name Value Range Interpretation Code Description Data Jacqui rce(s) Supporting Document(s) Ast/Sgot 9 U/L 7-37 [facility] ([facility]) Alt/SGPT 20 U/L 12-78 [facility] ([facility]) Bilirubin,Direct Laboratory test result 0.0-0.2 [facility] ([facility]) Alkaline Phosphatase 80 U/L 45-117 [facility] ([facility]) Bilirubin,Total 0.2 mg/dL 0.2-1.0 [facility] ([facility]) Total Protein 5.8 GM/DL 6.4-8.2 [facility] ([facility]) Albumin/Globulin Ratio 0.4 1.2-2.2 [facility] ([facility]) Albumin 1.7 GM/DL 3.2-5.2 [facility] ([facility]) ID Date Data Source [id number] 04/30/2020 12:39:00 PM EST [facility] ([facility]) Name Value Range Interpretation Code Description Data Jacqui rce(s) Supporting Document(s) CPK Creatine Phosphokinase 16 U/L 26-192 [facility] ([facility]) MB/CK Relative Index 6.25 [facility] ([facility]) <content>DIAGNOSIS CRITERIA</content>
<content>MMB ng/ml Relative Index (RI)</content>
<content>NON-AMI < or = 5 N/A</content>
<content>LOCKETT ZONE > 5 < or = 4</content>
<content>AMI > 5 > 4</content>
<content></content> CK-MB Value Mass Laboratory test result [facility] ([facility]) Troponin I Laboratory test result [facility] ([facility]) <content>Troponin I Reference Interval f or Siemens [place] LOCI:</content>
<content></content>
<content>99th Percentile= 0.00-0.045 ng/ml</content>
<content></content>
<content>Risk Stratification:</content>
<content><= 0.10 ng/ml Decreased Risk for Adverse Clinical</content>
<content>Events.</content>
<content>0.10-1.50 ng/ml Increased Risk for Adverse Clinical</content>
<content>Events. Evaluation of additional</content>
<content>criterion and/or repeat testing in 2-6</content>
<content>hours is suggested to rule out myocardial</content>
<content>damage.</content>
<content>>= 1.50 ng/ml Indicative of Myocardial Injury.</content>
<content></content> ID Date Data Source [id number] 04/30/2020 12:39:00 PM EST [facility] ([facility]) Name Value Range Interpretation Code Description Data Jacqui rce(s) Supporting Document(s) aPTT in Blood by Coagulation assay 34.2 s 24.2-38.5 [facility] ([facility]) Lactate [Mass/volume] in Serum or Plasma 0.9 mmol/L 0.4-2.0 [facility] ([facility]) Y/N query for Sepsis Lactate Rule: Y ID Date Data Source [id number] 04/30/2020 12:39:00 PM EST [facility] ([facility]) Name Value Range Interpretation Code Description Data Jacqui rce(s) Supporting Document(s) Inr 1.21 [facility] THERAPUTIC HUMAN INR VALUES INDICATIONS NORMAL RANGES PROPHYLAXIS/TREATMENT OF: VENOUS THROMBOSIS 2.0-3.0 PULMONARY EMBOLISM 2.0-3.0 PREVENTION OF SYSTEMIC EMBOLISM FROM: TISSUE HEART VALVES 2.0-3.0 ACUTE MYOCARDIAL INFARCTION 2.0-3.0 VALVULAR HEART DISEASE 2.0-3.0 ATRIAL FIBRILLATION 2.0-3.0 MECHANICAL VALVES(HIGH RISK) 2.5-3.5 RECURRENT MYOCARDIAL INFARCTION 2.5-3.5 Prothrombin Time 15.6 s 12.5-14.3 [facility] ([facility]) ID Date Data Source [id number] 04/30/2020 12:39:00 PM EST [facility] ([facility]) Name Value Range Interpretation Code Description Data Jacqui rce(s) Supporting Document(s) Red Blood Count 2.98 10 4.00-5.40 [facility] ([facility]) White Blood Count 11.1 10 4.0-10.0 [facility] ([facility]) Hemoglobin 8.2 g/dL 12.0-15.5 [facility] Hematocrit 27.9 % 36.0-47.0 [facility]) Mean Corpuscular Volume 93.6 fl 80.0-96.0 [facility] ([facility]) Mean Corpuscular Hemoglobin 27.5 pg 27.0-33.0 [facility] ([facility]) Neutrophils % 75.1 % 36.0-66.0 [facility] ([facility]) Red Cell Distribution Width 19.2 % 11.5-14.5 [facility] ([facility]) Platelet Count, Automated 201 10 150-450 [facility] NT ([facility]) Mean Corpuscular HGB Conc 29.4 g/dL 32.0-36.5 [facility] NT ([facility]) [place] % 7.0 % 0.0-5.0 [facility] Lymph % 14.7 % 24.0-44.0 [facility] Eos % 1.5 % 0.0-3.0 [facility]) Immature Granulocyte % 1.2 % 0-3.0 [facility] ([facility]) Nucleated Red Blood Cell % 0.0 % 0-0 [facility] ([facility]) Baso % 0.5 % 0.0-1.0 [facility]) Neutrophils # 8.3 10 1.5-8.5 [facility] ([facility]) Lymph # 1.6 10 1.5-5.0 [facility] [place] # 0.8 10 0.0-0.8 [facility] Baso # 0.1 10 0.0-0.2 [facility] Eos # 0.2 10 0.0-0.5 [facility] ID Date Data Source [id number] 04/29/2020 09:30:00 AM EST [facility] Name Value Range Interpretation Code Description Data Jacqui rce(s) Supporting Document(s) SARS coronavirus 2 RNA Not Detected [facility] [place] This lab was ordered by [facility] and reported by [facility]. ID Date Data Source [id number] 04/23/2020 09:57:00 AM EST [facility] Name Value Range Interpretation Code Description Data Jacqui rce(s) Supporting Document(s) SARS coronavirus 2 RNA [facility] This lab was ordered by [facility] and reported by [facility]. ID Date Data Source [id number] 04/17/2020 11:00:00 AM EST [facility] Name Value Range Interpretation Code Description Data Jacqui rce(s) Supporting Document(s) SARS coronavirus 2 RNA [facility] This lab was ordered by [facility] and reported by [facility]. ID Date Data Source [id number] 04/11/2020 09:00:00 AM EST [facility] Name Value Range Interpretation Code Description Data Jacqui rce(s) Supporting Document(s) SARS coronavirus 2 RNA [facility] This lab was ordered by [facility] and reported by [facility]. ID Date Data Source [id number] 04/07/2020 01:34:00 PM EST [facility] Name Value Range Interpretation Code Description Data Jacqui rce(s) Supporting Document(s) SARS coronavirus 2 RNA [facility] This lab was ordered by [facility] and reported by [facility]. ID Date Data Source [id number] 03/27/2020 09:24:00 PM EST [facility] Name Value Range Interpretation Code Description Data Jacqui rce(s) Supporting Document(s) SARS coronavirus 2 RNA [Presence] in Res piratory specimen by TIMMY with probe detection [facility] This lab was ordered by [facility] a nd reported by [facility]. ID Date Data Source [id number] 03/27/2020 06:50:00 PM EST [facility] ([facility]) Name Value Range Interpretation Code Description Data Jacqui rce(s) Supporting Document(s) C reactive protein [Mass/volume] in Serum or Plasma by High sensitivity method 5.64 mg/dL 0.00-0.30 [facility] ([facility] ) ID Date Data Source [id number] 03/27/2020 06:50:00 PM EST [facility] ([facility]) Name Value Range Interpretation Code Description Data Jacqui rce(s) Supporting Document(s) Glucose, Fasting 268 mg/dL 70-100 [facility] ([facility]) Blood Urea Nitrogen 75 mg/dL 7-18 [facility] ([facility]) Sodium Level 138 meq/L 136-145 [facility] ([facility]) Glomerular Filtration Rate 28.7 [facility] ([facility]) <content>Units are mL/min/1.73 m2</content>
<content></content>
<content>Chronic Kidney Disease Staging per NKF:</content>
<content></content>
<content>Stage I & II GFR >=60 Normal to Mildly Decreased</content>
<content>Stage III GFR 30- 59 Moderately Decreased</content>
<content>Stage IV GFR 15-29 Severely Decreased</content>
<content>Stage V GFR <15 Very Little GFR Left</content>
<content>ESRD GFR <15 on [employer]</content>
<content></content> Creatinine For GFR 1.84 mg/dL 0.55-1.30 [facility] ([facility]) Chloride Level 107 meq/L 98-107 [facility] ([facility]) Potassium Serum 4.7 meq/L 3.5-5.1 [facility] ([facility]) Calcium Level 8.3 mg/dL 8.8-10.2 [facility] ([facility]) Ast/Sgot 12 U/L 7-37 [facility] Anion Gap 5 meq/L 8-16 [facility] Carbon Dioxide Level 26 meq/L 21-32 [facility] ([facility]) Alkaline Phosphatase 83 U/L 45-117 [facility] ([facility]) Bilirubin,Total 0.2 mg/dL 0.2-1.0 [facility] ([facility]) Alt/SGPT 19 U/L 12-78 [facility]) Albumin 1.8 GM/DL 3.2-5.2 [facility] Total Protein 6.0 GM/DL 6.4-8.2 [facility] ([facility]) Albumin/Globulin Ratio 0.4 1.2-2.2 [facility] ([facility]) ID Date Data Source [id number] 03/27/2020 06:50:00 PM EST [facility] ([facility]) Name Value Range Interpretation Code Description Data Jacqui rce(s) Supporting Document(s) Erythrocyte sedimentation rate by Westergren method 125 mm/hr 0-30 [facility] ([facility]) ID Date Data Source [id number] 03/27/2020 06:50:00 PM EST [facility] ([facility]) Name Value Range Interpretation Code Description Data Jacqui rce(s) Supporting Document(s) White Blood Count 8.9 10 4.0-10.0 [facility] ([facility]) Red Blood Count 2.98 10 4.00-5.40 [facility] ([facility]) Hematocrit 26.6 % 36.0-47.0 [facility] ([facility]) Hemoglobin 7.7 g/dL 12.0-15.5 [facility] ([facility]) Mean Corpuscular HGB Conc 28.9 g/dL 32.0-36.5 [facility] ([facility]) Mean Corpuscular Hemoglobin 25.8 pg 27.0-33.0 [facility] ([facility]) Mean Corpuscular Volume 89.3 fl 80.0-96.0 [facility] ([facility]) Neutrophils % 70.7 % 36.0-66.0 [facility]) Platelet Count, Automated 249 10 150-450 [facility] ([facility]) Red Cell Distribution Width 15.1 % 11.5-14.5 [facility] ([facility]) Lymph % 17.2 % 24.0-44.0 [facility] [place] % 8.2 % 0.0-5.0 [facility] Eos % 1.0 % 0.0-3.0 [facility]) Nucleated Red Blood Cell % 0.0 % 0-0 [facility] ([facility]) Baso % 0.8 % 0.0-1.0 [facility]) Immature Granulocyte % 2.1 % 0-3.0 [facility] ([facility]) [place] # 0.7 10 0.0-0.8 [facility]) Neutrophils # 6.3 10 1.5-8.5 [facility] Lymph # 1.5 10 1.5-5.0 [facility] Eos # 0.1 10 0.0-0.5 [facility] Baso # 0.1 10 0.0-0.2 [facility] ID Date Data Source [id number] 03/20/2020 01:00:00 PM EST [facility] Name Value Range Interpretation Code Description Data Jacqui rce(s) Supporting Document(s) SARS coronavirus 2 RNA [facility] This lab was ordered by [facility] and reported by [facility]. ID Date Data Source [id number] 03/14/2020 06:00:00 AM EST [facility] Name Value Range Interpretation Code Description Data Jacqui rce(s) Supporting Document(s) SARS coronavirus 2 RNA [facility] This lab was ordered by [facility] and reported by [facility]. ID Date Data Source [id number] 03/07/2020 01:30:00 PM EST [facility] Name Value Range Interpretation Code Description Data Jacqui rce(s) Supporting Document(s) SARS coronavirus 2 RNA [facility] This lab was ordered by [facility] and reported by [facility]. ID Date Data Source [id number] 02/21/2020 03:22:00 PM EDT [facility] ([facility]) Name Value Range Interpretation Code Description Data Jacqui rce(s) Supporting Document(s) Ast/Sgot 13 U/L 7-37 [facility] ([facility]) Alt/SGPT 19 U/L 12-78 [facility] ([facility]) Alkaline Phosphatase 75 U/L 45-117 [facility] ([facility]) Bilirubin,Direct 0.1 mg/dL 0.0-0.2 [facility] ([facility]) Bilirubin,Total 0.4 mg/dL 0.2-1.0 [facility] ([facility]) Albumin 2.5 GM/DL 3.2-5.2 [facility] ([facility]) Albumin/Globulin Ratio 0.7 1.2-2.2 [facility] ([facility]) Total Protein 6.1 GM/DL 6.4-8.2 [facility] ([facility]) ID Date Data Source [id number] 02/21/2020 03:22:00 PM EDT [facility] ([facility]) Name Value Range Interpretation Code Description Data Jacqui rce(s) Supporting Document(s) CPK Creatine Phosphokinase 73 U/L 26-192 [facility] ([facility]) CK-MB Value Mass 1.4 ng/mL [facility] ([facility]) MB/CK Relative Index 1.92 [facility] ([facility]) <content>DIAGNOSIS CRITERIA</content>
<content>MMB ng/ml Relative Index (RI)</content>
<content>NON-AMI < or = 5 N/A</content>
<content>LOCKETT ZONE > 5 < or = 4</content>
<content>AMI > 5 > 4</content>
<content></content> Troponin I Laboratory test result [facility] ([facility]) <content>Troponin I Reference Interval f or Siemens [place] LOCI:</content>
<content></content>
<content>99th Percentile= 0.00-0.045 ng/ml</content>
<content></content>
<content>Risk Stratification:</content>
<content><= 0.10 ng/ml Decreased Risk for Adverse Clinical</content>
<content>Events.</content>
<content>0.10-1.50 ng/ml Increased Risk for Adverse Clinical</content>
<content>Events. Evaluation of additional</content>
<content>criterion and/or repeat testing in 2-6</content>
<content>hours is suggested to rule out myocardial</content>
<content>damage.</content>
<content>>= 1.50 ng/ml Indicative of Myocardial Injury.</content>
<content></content> ID Date Data Source [id number] 02/21/2020 03:22:00 PM EDT [facility] ([facility] Name Value Range Interpretation Code Description Data Jacqui rce(s) Supporting Document(s) Lactate [Mass/volume] in Serum or Plasma 1.0 mmol/L 0.4-2.0 [facility] ([facility]) Y/N query for Sepsis Lactate Rule: Y ID Date Data Source [id number] 09/26/2019 09:50:00 AM EDT [facility] ([facility]) Name Value Range Interpretation Code Description Data Jacqui rce(s) Supporting Document(s) Bedside Glucose 201 mg/dL 83-110 [facility]) ID Date Data Source [id number] 09/23/2019 06:00:00 AM EDT [facility] Name Value Range Interpretation Code Description Data Jacqui rce(s) Supporting Document(s) SARS CORONAVIRUS 2 RNA [facility] This lab was ordered by [facility] and reported by [facility]. ID Date Data Source [id number] 09/11/2019 02:35:00 PM EDT [facility] Name Value Range Interpretation Code Description Data Jacqui rce(s) Supporting Document(s) SARS CORONAVIRUS 2 RNA [facility] This lab was ordered by [facility] and reported by [facility]. Procedure Social History Code Duration Value Status Description Data Source(s ) Smoking 05/21/2020 12:00:00 AM EST Former Smoker completed Former Smoker eCW1 ([facility]) Smoking 05/21/2020 12:00:00 AM EST Former Smoker completed Former Smoker [facility] ([facility]) Smoking 04/17/2019 12:00:00 AM EST Unknown if ever smoked comp leted Unknown if ever smoked [facility] Vital Signs ID Date Data Source UNK Name Value Range Interpretation Code Description Data Source(s) Oxygen saturation in Arterial blood by Pulse oximetry 16 % 16 % [facility] Body mass index (BMI) [Ratio] 40.62 kg/m2 40.62 kg/m2 [facility] Body weight 97.523 kg 97.523 kg [facility] wt reported from 05/22/20 at the facility Body height 154.9 cm 154.9 cm [facility] Respiratory rate 16 /min 16 /min [facility] Heart rate 70 /min 70 /min [facility] Diastolic blood pressure 72 mm[Hg] 72 mm[Hg] [facility] Systolic blood pressure 132 mm[Hg] 132 mm[Hg] [facility] Diastolic blood pressure 72 mm[Hg] 72 mm[Hg] W1 ([facility]) Systolic blood pressure 130 mm[Hg] 130 mm[Hg] e CW1 ([facility]) Body temperature 96.4 [degF] 96.4 [degF] eCW1 ( [facility]) Respiratory rate 20 /min 20 /min eCW1 ([facility]) Heart rate 75 /min 75 /min eCW1 ([facility]) Body mass index (BMI) [Ratio] 43.31 kg/m2 43.31 kg/m2 eCW1 ([facility]) Body height 61.5 [in_i] 61.5 [in_i] eCW1 ([facility] Body weight 233 [lb_av] 233 [lb_av] eCW1 ([facility]) Diastolic blood pressure 72 mm[Hg] 72 mm[Hg] eCW1 ([facility]) Systolic blood pressure 176 mm[Hg] 176 mm[Hg] e CW1 ([facility]) Body temperature 98.8 [degF] 98.8 [degF] eCW1 ( [facility]) Respiratory rate 18 /min 18 /min eCW1 ([facility]) Heart rate 73 /min 73 /min eCW1 ([facility]) Body mass index (BMI) [Ratio] 43.31 kg/m2 43.31 kg/m2 eCW1 ([facility]) Body height 61.5 [in_us] 61.5 [in_us] eCW1 ([facility]) Body weight Measured 233 [lb_av] 233 [lb_av] eC W1 ([facility]) Diastolic blood pressure 69 mm[Hg] 69 mm[Hg] eCW1 ([facility]) Systolic blood pressure 164 mm[Hg] 164 mm[Hg] e CW1 ([facility]) Body temperature 98.4 [degF] 98.4 [degF] eCW1 ( [facility]) Respiratory rate 20 /min 20 /min eCW1 ([facility]) Heart rate 68 /min 68 /min eCW1 ([facility]) Body mass index (BMI) [Ratio] 43.46 kg/m2 43.46 kg/m2 eCW1 ([facility]) Body height 61.5 [in_us] 61.5 [in_us] eCW1 ([facility]) Body weight Measured 233.8 [lb_av] 233.8 [lb_av ] eCW1 ([facility]) Diastolic blood pressure 63 mm[Hg] 63 mm[Hg] eCW1 ([facility]) Systolic blood pressure 133 mm[Hg] 133 mm[Hg] e CW1 ([facility]) Body temperature 97.1 [degF] 97.1 [degF] eCW1 ( [facility]) Respiratory rate 18 /min 18 /min eCW1 ([facility]) Heart rate 80 /min 80 /min eCW1 ([facility]) Body mass index (BMI) [Ratio] 41.63 kg/m2 41.63 kg/m2 eCW1 ([facility]) Body height 61.5 [in_us] 61.5 [in_us] eCW1 ([facility]) Body weight Measured 224 [lb_av] 224 [lb_av] eC W1 ([facility]) Patient Treatment Plan of Care Planned Activity Planned Date Details Description Data Source (s) 3 ML Insulin Lispro 100 UNT/ML Pen Injector [Humalog] 03/23/2020 12:00:00 AM [facility] Spironolactone 25 MG Oral Tablet 03/14/2020 12:00:00 AM [facility] pantoprazole 40 MG Delayed Release Oral Tablet 03/10/2020 12:00:00 AM [facility] clopidogrel 75 MG Oral Tablet 03/08/2020 12:00:00 AM [facility] atorvastatin 40 MG Oral Tablet 03/08/2020 12:00:00 AM [facility] Fluoxetine 10 MG Oral Capsule 03/08/2020 12:00:00 AM [facility] Hydralazine Hydrochloride 50 MG Oral Tablet 03/08/2020 12:00:00 AM [facility] Isosorbide Dinitrate 20 MG Oral Tablet 03/08/2020 12:00:00 AM [facility] ferrous gluconate 324 MG Oral Tablet 03/03/2020 12:00:00 AM [facility] Ondansetron 4 MG Oral Tablet 03/03/2020 12:00:00 AM EST [facility] Hydralazine Hydrochloride 100 MG Oral Tablet [facility]
--- OUTSIDE RECORDS SUMMARY | 2020-06-11 15:02 | CCD | Continuity of Care Document ---
Author Organization Unknown Address Unknown Phone Unavailable Care Team Providers Care Migrant Leader Name Role Phone [facility] [phone] Problems Description No Information Available Social History Type Date Description Comments Sex Unknown Allergies, Adverse Reactions, Alerts Description No Information Available Medications Description No Information Available Immunizations Description No Information Available Vital Signs Description No Information Available Results Test Acquired Date Facility Test Result H/L Range Note Influenza A/B RSV Covid Amp 04/30/[address] [address] [phone] Influenza A Amplification NEGATIVE Normal Negati ve 1 Influenza B Amplification NEGATIVE Normal Negative 2 RSV Amplification NEGATIVE Normal Negative 3 Sars Covid-19 Amplification NEGATIVE Normal Negative 4 CBC With Differential 04/30/2020 [facility] [address] [place] [address] [phone] White Blood Count 11.1 10 High 4.0-10.0 [...] 36.0-66.0 Lymph % 14.7 % Low 24.0-44.0 [place] % 7.0 % High 0.0-5.0 Eos % 1.5 % Normal 0.0-3.0 Baso % 0.5 % Normal 0.0-1.0 Immature Granulocyte % 1.2 % Normal 0-3.0 Nucleated Red Blood Cell % 0.0 % Normal 0-0 Neutrophils # 8.3 10 Normal 1.5-8.5 Lymph # 1.6 10 Normal 1.5-5.0 [place] # 0.8 10 Normal 0.0-0.8 Eos # 0.2 10 Normal 0.0-0.5 Baso # 0.1 10 Normal 0.0-0.2 Prothrombin Time/Inr 04/30/2020 [facility] enter [address] [id number] [phone] Prothrombin Time 15.6 seconds High 12.5-14.3 Inr 1.21 Normal 5 Laboratory test finding 04/30/2020 [place] [id number] [phone] Partial Thromboplastin Time 34.2 seconds Normal 24 .2-38.5 Lactic Acid Sepsis Protocol 0.9 mmol/L Normal 0.4-2.0 6 Cardiac Marker Panel 04/30/2020 [facility] enter [address] [place] [address] [phone] CPK Creatine Phosphokinase 16 U/L Low 26-19 2 CK-MB Value Mass < 1.0 NG/ML Normal <3.6 MB/CK Relative Index 6.25 High < Or =4 7 Troponin I < 0.02 NG/ML Normal < 0.10 8 Liver Profile 04/30/2020 [facility] nter [address] [id number] [phone] Ast/Sgot 9 U/L Normal 7-37 Alt/SGPT 20 U/L Normal 12-78 Alkaline Phosphatase 80 U/L Normal 45-117 Bilirubin,Total 0.2 mg/dL Normal 0.2-1.0 Bilirubin,Direct < 0.1 mg/dL Normal 0.0-0.2 Total Protein 5.8 GM/DL Low 6.4-8.2 Albumin 1.7 GM/DL Low 3.2-5.2 Albumin/Globulin Ratio 0.4 Low 1.2-2.2 Basic Metabolic Profile 04/30/[address], [place] [id number] [phone] Glucose, Fasting 252 mg/dL High 70-100 Blood [...] mg/dL Low 8.8-10.2 Laboratory test finding 04/30/[address] [address] [phone] Amylase 26 U/L Normal 25-115 C Reactive Protein Quantitativ 8.35 mg/dL High 0.00-0.30 Type & Screen -Incl Blood Type,Eduardo,AB SC 04/30/[address] [address] [phone] Blood Type A POSITIVE Normal AB Screen (Indirect Tab)Vis NEGATIVE Normal CBC With Differential 03/27/[address] [address] [phone] White Blood Count 8.9 10 Normal 4.0-10.0 [...] 36.0-66.0 Lymph % 17.2 % Low 24.0-44.0 [place] % 8.2 % High 0.0-5.0 Eos % 1.0 % Normal 0.0-3.0 Baso % 0.8 % Normal 0.0-1.0 Immature Granulocyte % 2.1 % Normal 0-3.0 Nucleated Red Blood Cell % 0.0 % Normal 0-0 Neutrophils # 6.3 10 Normal 1.5-8.5 Lymph # 1.5 10 Normal 1.5-5.0 [place] # 0.7 10 Normal 0.0-0.8 Eos # 0.1 10 Normal 0.0-0.5 Baso # 0.1 10 Normal 0.0-0.2 Laboratory test finding 03/27/[address] [address] [phone] Erythrocyte Sedimentation Rate 125 mm/hr High 0 -30 Comprehensive Metabolic Profil 03/27/[address] [address] [phone] Glucose, Fasting 268 mg/dL High 70-100 Blood [...] 0.4 Low 1.2-2.2 Laboratory test finding 03/27/[address] [address] [phone] C Reactive Protein Quantitativ 5.64 mg/dL High 0 .00-0.30 Laboratory test finding 02/21/[address] [address] [phone] Lactic Acid Sepsis Protocol 1.0 mmol/L Normal 0.4- 2.0 11 Cardiac Marker Panel 02/21/2020 [facility] enter [address] [place] [address] [phone] CPK Creatine Phosphokinase 73 U/L Normal 26-19 2 CK-MB Value Mass 1.4 NG/ML Normal <3.6 MB/CK Relative Index 1.92 Normal < Or =4 12 Troponin I < 0.02 NG/ML Normal < 0.10 13 Liver Profile 02/21/2020 [facility] nter [address] [place], [place] [id number] [phone] Ast/Sgot 13 U/L Normal 7-37 Alt/SGPT 19 [...] pathogens. DISCLAIMER: Testing was performed using the [employer] SARS-CoV-2 test. This test was developed and its performance characteristics determined by [employer]. This test has not been FDA cleared [...] 8 Troponin I Reference Interva l for [employer] [place] LOCI: 99th Percentile= 0.00-0.045 ng/ml Risk Stratification: [...] Little GFR Left ESRD GFR <15 on RN CLINICAL DOCUMENTATION 10 Units are mL/min/1.73 m2 Chronic Kidney Disease Staging per NKF: Stage I & II GFR >=60 Normal to Mildly Decreased Stage III GFR 30-59 Moderately Decreased Stage IV GFR 15-29 Severely Decreased Stage V GFR <15 Very Little GFR Left ESRD GFR <15 on RN CLINICAL DOCUMENTATION 11 Y/N query for Sepsis Lactate Rule: Y 12 DIAGNOSIS CRITERIA MMB ng/ml Relative Index (RI) NON-AMI < or = 5 N/A LOCKETT ZONE > 5 < or = 4 AMI > 5 > 4 13 Troponin I Reference Interva l for [employer] [place] LOCI: 99th Percentile= 0.00-0.045 ng/ml Risk Stratification: <= 0.10 ng/ml Decreased Risk for Adverse Clinical Events. 0.10-1.50 ng/ml Increased Risk for Adv erse Clinical Events. Evaluation of additional criterion and/or repeat testing in 2-6 hours is suggested to rule out myocardial damage. >= 1.50 ng/ml Indicative of Myocardial Injury. 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 01/30/2020 F32.9 Major depressive disorder, singl e episode, unspecified [facility] 01/30/2020 I73.9 Peripheral vascular disease, uns pecified [facility] Plan of Treatment No Information Available Functional Status Description No Information Available Mental Status Description No Information Available Referrals Description No Information Available
[2020-06-11 15:26] LABS: ALBUMIN 2.9 GM/DL (3.2-5.2); ALT/SGPT 28 U/L (12-78); BILIRUBIN,DIRECT < 0.1 MG/DL (0.0-0.2); BILIRUBIN,TOTAL 0.2 MG/DL (0.2-1.0); BLOOD UREA NITROGEN 117 MG/DL (7-18); CALCIUM LEVEL 10.6 MG/DL (8.8-10.2); CARBON DIOXIDE LEVEL 33 MEQ/L (21-32); CHLORIDE LEVEL 107 MEQ/L (98-107); CK-MB VALUE MASS < 1.0 NG/ML (<3.6); CPK CREATINE PHOSPHOKINASE 15 U/L (26-192); CREATININE FOR GFR 1.79 MG/DL (0.55-1.30); GLOMERULAR FILTRATION RATE 29.6 (>39); GLUCOSE, FASTING 285 MG/DL (70-100); MB/CK RELATIVE INDEX 6.67 (< OR =4); NT-PRO BNP 1582 PG/ML (<125); POTASSIUM SERUM 4.2 MEQ/L (3.5-5.1); SODIUM LEVEL 145 MEQ/L (136-145); THYROID STIMULATING HORMONE 0.513 uIU/ML (0.358-3.740); TOTAL PROTEIN 5.5 GM/DL (6.4-8.2); TROPONIN I < 0.02 NG/ML (< 0.10)
[2020-06-11 16:24] LABS: OSMOLALITY SERUM 347 MOSM/KG (280-301)
[2020-06-11] MEDS ORDERED: NS 500 ML IV ONE (17:00)
[2020-06-11] MEDS ORDERED: hydrALAZINE 20MG/ML 1ML VIAL (J0360 PER 20MG) IV SCH (18:00)
[2020-06-11] MEDS ORDERED: GLUCAGON INJ 1MG VIAL SC PRN (18:00)
[2020-06-11] MEDS ORDERED: GLUCOSE 4GM CHEW TABLET PO PRN (18:00)
[2020-06-11] MEDS ORDERED: DEXTROSE 50% 50 ML SYRINGE IV PRN (18:00)
[2020-06-11] MEDS: NS 1,000 ML IV SCH (18:00)
--- OUTSIDE RECORDS SUMMARY | 2020-06-11 18:10 | CCD ---
Author Author [facility] Organization [facility] Address Unknown Phone Unavailable Care Team Providers Care Lead C Developer Name Role Phone Fons, M Ginna TELECASTING ENGINEER Unavailable Unavailable Fons, M Ginna TELECASTING ENGINEER Unavailable Unavailable Fons, M Ginna TELECASTING ENGINEER Unavailable Unavailable Fons, M Ginna TELECASTING ENGINEER Unavailable Unavailable Fons, M Ginna TELECASTING ENGINEER Unavailable Unavailable Fons, M Ginna TELECASTING ENGINEER Unavailable Unavailable Fons, M Ginna TELECASTING ENGINEER Unavailable Unavailable Fons, M Ginna TELECASTING ENGINEER Unavailable Unavailable Fons, M Ginna TELECASTING ENGINEER Unavailable Unavailable Fons, M Ginna TELECASTING ENGINEER Unavailable Unavailable Fons, M Ginna TELECASTING ENGINEER Unavailable Unavailable Fons, M Ginna TELECASTING ENGINEER Unavailable Unavailable Fons, M Ginna TELECASTING ENGINEER Unavailable Unavailable Fons, M Ginna TELECASTING ENGINEER Unavailable Unavailable Fons, M Ginna TELECASTING ENGINEER Unavailable Unavailable Fons, M Ginna TELECASTING ENGINEER Unavailable Unavailable Fons, M Ginna TELECASTING ENGINEER Unavailable Unavailable Fons, M Ginna TELECASTING ENGINEER Unavailable Unavailable Fons, M Ginna TELECASTING ENGINEER Unavailable Unavailable Fons, M Ginna TELECASTING ENGINEER Unavailable Unavailable Fons, M Ginna TELECASTING ENGINEER Unavailable Unavailable Fons, M Ginna TELECASTING ENGINEER Unavailable Unavailable Fons, M Ginna TELECASTING ENGINEER Unavailable Unavailable Fons, M Ginna TELECASTING ENGINEER Unavailable Unavailable Fons, M Ginna TELECASTING ENGINEER Unavailable Unavailable Fons, M Ginna TELECASTING ENGINEER Unavailable Unavailable Fons, M Ginna TELECASTING ENGINEER Unavailable Unavailable Fons, M Ginna TELECASTING ENGINEER Unavailable Unavailable Fons, M Ginna TELECASTING ENGINEER Unavailable Unavailable Fons, M Ginna TELECASTING ENGINEER Unavailable Unavailable Fons, M Ginna TELECASTING ENGINEER Unavailable Unavailable Fons, M Ginna TELECASTING ENGINEER Unavailable Unavailable Fons, M Ginna TELECASTING ENGINEER Unavailable Unavailable Fons, M Ginna TELECASTING ENGINEER Unavailable Unavailable Fons, M Ginna TELECASTING ENGINEER Unavailable Unavailable Fons, M Ginna TELECASTING ENGINEER Unavailable Unavailable Fons, M Ginna TELECASTING ENGINEER Unavailable Unavailable Fons, M Ginna TELECASTING ENGINEER Unavailable Unavailable Fons, M Ginna TELECASTING ENGINEER Unavailable Unavailable Fons, M Ginna TELECASTING ENGINEER Unavailable Unavailable Fons, M Ginna TELECASTING ENGINEER Unavailable Unavailable Fons, M Ginna TELECASTING ENGINEER Unavailable Unavailable Fons, M Ginna TELECASTING ENGINEER Unavailable Unavailable Fons, M Ginna TELECASTING ENGINEER Unavailable Unavailable Fons, M Ginna TELECASTING ENGINEER Unavailable Unavailable Fons, M Ginna TELECASTING ENGINEER Unavailable Unavailable Fons, M Ginna TELECASTING ENGINEER Unavailable Unavailable Fons, M Ginna TELECASTING ENGINEER Unavailable Unavailable Fons, M Ginna TELECASTING ENGINEER Unavailable Unavailable Fons, M Ginna TELECASTING ENGINEER Unavailable Unavailable Fons, M Ginna TELECASTING ENGINEER Unavailable Unavailable Fons, M Ginna TELECASTING ENGINEER Unavailable Unavailable Fons, M Ginna TELECASTING ENGINEER Unavailable Unavailable Fons, M Ginna TELECASTING ENGINEER Unavailable Unavailable Fons, M Ginna TELECASTING ENGINEER Unavailable Unavailable Fish, Ivis Varela MD Unavailable [...] Unavailable Fish, B Avery FARFAN Unavailable Unavailable Lorain, N Pramod ROOM CLERK Unavailable Unavailable Kourtney, N Pramod ROOM CLERK Unavailable Unavailable Kourtney, N Pramod ROOM CLERK Unavailable Unavailable Lorain, N Pramod ROOM CLERK Unavailable Unavailable Kourtney, N Pramod ROOM CLERK Unavailable Unavailable Kourtney, N Pramod ROOM CLERK Unavailable Unavailable Lorain, N Pramod ROOM CLERK Unavailable Unavailable Lorain, N Pramod ROOM CLERK Unavailable Unavailable Kourtney, N Pramod ROOM CLERK Unavailable Unavailable Lorain, N Pramod ROOM CLERK Unavailable Unavailable Kourtney, N Pramod ROOM CLERK Unavailable Unavailable Lorain, N Pramod ROOM CLERK Unavailable Unavailable Kourtney, N Pramod ROOM CLERK Unavailable Unavailable Kourtney, N Pramod ROOM CLERK Unavailable Unavailable Lorain, N Pramod ROOM CLERK Unavailable Unavailable Lorain, N Pramod ROOM CLERK Unavailable Unavailable Lorain, N Pramod ROOM CLERK Unavailable Unavailable Kourtney, N Pramod ROOM CLERK Unavailable Unavailable Kourtney, N Pramod ROOM CLERK Unavailable Unavailable Lorain, N Pramod ROOM CLERK Unavailable Unavailable Kourtney, N Pramod ROOM CLERK Unavailable Unavailable Kourtney, N Pramod ROOM CLERK Unavailable Unavailable Lorain, N Pramod ROOM CLERK Unavailable Unavailable Lorain, N Pramod ROOM CLERK Unavailable Unavailable Kourtney, N Pramod ROOM CLERK Unavailable Unavailable Kourtney, N Pramod ROOM CLERK Unavailable Unavailable Lorain, N Pramod ROOM CLERK Unavailable Unavailable Kourtney, N Pramod ROOM CLERK Unavailable Unavailable Lorain, N Pramod ROOM CLERK Unavailable Unavailable Lorain, N Pramod ROOM CLERK Unavailable Unavailable Kourtney, N Pramod ROOM CLERK Unavailable Unavailable Re-disclosure Warning The records that [...] is protected by Article 27-F of the [facility] Public Health law. If you continue you may have access to information: Regarding HIV / AIDS; Provided by facilities licensed or operated by the [facility] Office of Mental Health; or Provided by the [facility] Office for People With Developmental Disabilities. If such information is present, then the following [facility] mandated warning applies: This information has been [...] law may result in a fine or fpc sentence or both. A general authorization for the release of medical or other information is NOT sufficient authorization for further disc losure. Allergies and Adverse Reactions Type Description Substance Reaction Status Data Source(s ) Latex (for allergy use only) Latex (for allergy use only) La tristan (for allergy use only) rash, hives Active eCW1 ([facility]) Latex (for allergy use only) Latex (for allergy use only) La tristan (for allergy use only) rash, hives Active eCW1 ([facility]) Latex (for allergy use only) Latex (for allergy use only) La tristan (for allergy use only) rash, hives Active eCW1 ([facility]) Encounters Encounter Providers Location Date Indications Data Source(s ) Outpatient Attender: Pramod ALLEN-DARIA 021 12:00:00 AM EST - 05/27/2020 11:30:15 AM EST [facility] TeleMedicine Phone E/M by Leydi 21-[address] [place] [address] 05/21/2020 12:00:00 AM EST eCW1 ([facility]) Unknown [address] [place] [address] 05/21/2020 12:00:00 AM EST eCW1 ([facility]) Outpatient Attender: Avery Butcher MD Physical Therapy 05/09/2020 0 3:09:00 PM EST MEDENT ([facility]) Outpatient 06/27/2019 03:07:00 PM EST [facility] Wound Care Center [address] [place] [address] 06/21/2019 12:00:00 AM EST eCW1 ([facility]) [facility] Wound Care Center [address] [place], [place] [phone] 05/23/2019 12:00:00 AM EST eCW1 ([facility]) [facility] W[facility] Care Center [address] [place], [place] [id number] 05/16/2019 12:00:00 AM EST eCW1 ([facility]) [facility] W[facility] Care Center [address] [place] [address] 05/09/2019 12:00:00 AM EST eCW1 ([facility]) Outpatient 05/04/2019 03:40:00 PM EST [facility] Wound Care Center [address] [place], [place] [phone] 05/02/2019 12:00:00 AM EST eCW1 ([facility]) Outpatient Attender: Pramod Oconnell NPAttender: Ginna Briseno JP.WAT-SJPSherDARIA 04/17/2019 10:57:27 AM EST [facility] [address] [place] [address] 04/17/2019 12:00:00 AM EST eC1 ([facility]) [facility] Wound Care Center [address] [place] [address] 04/14/2019 12:00:00 AM EST eCW1 ([facility]) Medications Medication Brand Name Start Date Product [...] UNIT/ML SOPN 03/23/2020 12:00:00 AM EST active [facility] Spironolactone 25 MG Oral Tablet spironolactone (ALDAC TONE) 25 MG tablet spironolactone (ALDACTONE) 25 MG tablet 03/14/2020 12:00:00 AM EST active [facility] pantoprazole 40 MG Delayed Release Oral Tablet PANTOPRAZOLE SODIUM 03/10/2020 12:00:00 AM EST tablet,delayed release (DR/EC) 1 T CAYETANO ONE TABLET BY MOUTH TWICE A DAY TAKE ONE TABLET BY MOUTH TWICE A DAY SOLD: 03/10/2020 [facility] pantoprazole 40 MG Delayed Release Oral Tablet pantoprazole (PROTONIX) 40 MG tablet pantoprazole (PROTONIX) 40 MG tablet 03/10/2020 12:00:[address] [facility] atorvastatin 40 MG Oral Tablet atorvastatin (LIPITOR) 40 MG tablet atorvastatin (LIPITOR) 40 MG tablet 03/08/2020 12:00:00 AM EST [facility] clopidogrel 75 MG Oral Tablet clopidogrel (PLAVIX) 75 MG tablet clopidogrel (PLAVIX) 75 MG tablet 03/08/2020 12:00:00 AM EST a [facility] Fluoxetine 10 MG Oral Capsule FLUoxetine (PROZAC) 10 M G capsule FLUoxetine (PROZAC) 10 MG capsule 03/08/2020 12:00:00 AM EST 30 mg active 30 mg [facility] Isosorbide Dinitrate 20 MG Oral Tablet i sosorbide dinitrate (ISORDIL) 20 MG tablet isosorbide dinitrate (ISORDIL) 20 MG tablet 03/08/2020 12:00:00 AM EST active [facility] Hydralazine Hydrochloride 50 MG Oral Tab let hydrALAZINE (APRESOLINE) 50 MG tablet hydrALAZINE (APRESOLINE) 50 MG tablet 03/08/2020 12:00:00 AM EST active [facility] ferrous gluconate 324 MG Oral Tablet ferrous gluconate (FERGON) 324 MG tablet ferrous gluconate (FERGON) 324 MG tablet 03/03/2020 12:00:00 AM EST active TAKE ONE TABLET BY MOUTH EVERY D AY START TODAY [facility] 25 mg 03/03/2020 12:00:00 AM EST [...] tablet 03/03/2020 12:00:00 AM EST ac tive [facility] Cephalexin 500 MG Oral Capsule CEPHALEXIN [...] by mouth 3 (three) times a day [facility] Insurance Providers Payer name Policy type / Coverage type Policy ID Covered constitution party ID Covered constitution party's relationship to martinez Policy Martinez Plan Information [facility] [id number] SP [id number] EMEDNY [id number] SP [id number] MEDICARE [id number] SP [id number] MEDICARE [id number] Kathleen [id number] MEDICARE [id number] [employer] [id number] MEDICAID M [id number] MEDICARE C [id number] S [id number] [facility] [id number] SP [id number] [facility] [id number] SP [id number] [facility] [id number] SP [id number] MEDICAID [id number] SP [id number] [employer] [id number] SP [id number] MEDICARE [id number] A [facility] [id number] MEDICARE [id number] SP [id number] MEDICARE [id number] SP [id number] [facility] [id number] SP [id number] MEDICARE [id number] SP [id number] A MEDICAID -O/P [id number] 18 [id number] MEDICARE PART A -O/P [id number] 18 [id number] [facility] -O/P [id number] 18 [id number] [facility] [id number] SP [id number] [facility] [id number] S [id number] [facility] [id number] SP [id number] MEDICARE [id number] SP [id number] A MEDICARE - [place] MCR [id number] S [id number] GHI COMM CONTR [id number] S [id number] [employer] [facility] (pr) Commercial [id number] Self [id number] [employer] [facility] (pr) Commercial [id number] Self [id number] [employer] [id number] SP [id number] [employer] [facility] (pr) Commercial [id number] Self [id number] [employer] [facility] (pr) Commercial Self Problems, Conditions, and Diagnoses Code Display Name Description Problem Type Effective Dates Data Source(s) L89.620 [id number] Decubitus ulcer, heel, left, unstageable Problem 05/21/2020 12:00:00 AM EST eCW1 ([facility]) Z22.322 [id number] MRSA (methicillin resistant stap h aureus) culture positive Problem 05/21/2020 12:00:00 AM EST eCW1 ([facility]) M86.271 [id number] Subacute osteomyelitis of right foot Problem 05/21/2020 12:00:00 AM EST eCW1 ([facility]) R60.0 Localized edema Localized edema [id number] 04/17/2019 12:0 0:00 AM [facility] I10 Hypertension Hypertension [id number] 04/17/2019 12:00:00 A M [facility] I10 Essential (primary) hypertension Essential (primary) h ypertension Diagnosis 05/27/2020 10:51:42 AM [facility] R60.0 Localized edema Localized edema Diagnosis 05/27/2020 10:5 1:42 AM [facility] Surgeries/Procedures Procedure Description Date Indications Data Source(s) INCISION & DRAINAGE ABSCESS SIMPLE/SINGLE 05/09/2020 1 2:00:00 AM EST MEDTHERESE ([facility]) Colonoscopy 09/26/2019 12:00:00 AM RICKI RUSSELL ([facility]) Office Visit, Est Pt., Level 2 FC 05/09/2019 12:00:00 AM EST eCW1 ([facility]) Office Visit, Est Pt., Level 2 PC 05/09/2019 12:00:00 AM EST eCW1 ([facility]) ZAY SUBQ TISSUE 20 SQ CM/< 04/17/2019 12:00:00 AM EST eCW1 ([facility]) Results ID Date Data Source [id number] 06/05/2020 12:00:00 PM EST [facility] Name Value Range Interpretation Code Description Data Jacqui rce(s) Supporting Document(s) SARS coronavirus 2 RNA Not Detected [facility] This lab was ordered by [facility] and reported by [facility]. ID Date Data Source [id number] 05/29/2020 10:30:00 AM EST [facility] Name Value Range Interpretation Code Description Data Jacqui rce(s) Supporting Document(s) SARS coronavirus 2 RNA Not Detected [facility] [place] This lab was ordered by [facility] and reported by [facility]. ID Date Data Source [id number] 05/22/2020 09:15:00 AM EST [facility] Name Value Range Interpretation Code Description Data Jacqui rce(s) Supporting Document(s) SARS coronavirus 2 RNA Not Detected [facility] [place] This lab was ordered by [facility] and reported by [facility]. ID Date Data Source [id number] 05/15/2020 10:00:00 AM EST [facility] Name Value Range Interpretation Code Description Data Jacqui rce(s) Supporting Document(s) SARS coronavirus 2 RNA Not Detected [facility] [place] This lab was ordered by [facility] and reported by [facility]. ID Date Data Source [id number] 05/08/2020 09:52:00 AM EST [facility] Name Value Range Interpretation Code Description Data Jacqui rce(s) Supporting Document(s) SARS coronavirus 2 RNA [Presence] in Res piratory specimen by TIMMY with probe detection NEGATIVE [facility] This lab was ordered by [facility] a nd reported by [facility]. ID Date Data Source [id number] 04/30/2020 12:46:00 PM EST MEDENT ([facility]) Name Value Range Interpretation Code Description Data Jacqui rce(s) Supporting Document(s) Influenza B Amplification Laboratory test result MEDENT ([facility]) Negative results do not preclude influen za or RSV virus infection and should not be used as the sole basis for treatment or other patient management decisions. Influenza A Amplification Laboratory test result MEDENT ([facility]) Negative results do not preclude influen za or RSV virus infection and should not be used as the sole basis for treatment or other patient management decisions. Laboratory test finding (navigational concept) Laboratory test result MEDENT ([facility]) A false negative result may occur [...] pathogens. DISCLAIMER: Testing was performed using the [employer] SARS-CoV-2 test. This test was developed and its performance characteristics determined by [employer]. This test has not been FDA cleared [...] sooner. RSV Amplification Laboratory test result MEDENT ([facility]) Negative results do not preclude influen za or RSV virus infection and should not be used as the sole basis for treatment or other patient management decisions. ID Date Data Source [id number] 04/30/2020 12:46:00 PM EST [facility] Name Value Range Interpretation Code Description Data Jacqui rce(s) Supporting Document(s) SARS coronavirus 2 RNA [Presence] in Res piratory specimen by TIMMY with probe detection NEGATIVE [facility] This lab was ordered by [facility] a nd reported by [facility]. ID Date Data Source [id number] 04/30/2020 12:39:00 PM EST [facility] Name Value Range Interpretation Code Description Data Jacqui rce(s) Supporting Document(s) Blood Type Laboratory test result MEDENT ([facility]) AB Screen (Indirect Tab)Vis Laboratory test result [facility] ID Date Data Source [id number] 04/30/2020 12:39:00 PM EST [facility] Name Value Range Interpretation Code Description Data Jacqui rce(s) Supporting Document(s) Amylase [Enzymatic activity/volume] in Serum or Plasma 26 U/L 25- 115 MEDENT ([facility]) C reactive protein [Mass/volume] in Serum or Plasma by High sensitivity method 8.35 mg/dL 0.00-0.30 [facility] ID Date Data Source [id number] 04/30/2020 12:39:00 PM EST [facility] Name Value Range Interpretation Code Description Data Jacqui rce(s) Supporting Document(s) Glucose, Fasting 252 mg/dL 70-100 MED[facility] ([facility]) Blood Urea Nitrogen 60 mg/dL 7-18 MED[facility] ([facility]) Creatinine For GFR 1.61 mg/dL 0.55-1.30 MED[facility] ([facility]) Sodium Level 140 meq/L 136-145 MEDENT ([facility]) Potassium Serum 4.7 meq/L 3.5-5.1 MEDENT ([facility]) Glomerular Filtration Rate 33.5 MED ENT ([facility]) <content>Units are mL/min/1.73 m2</content>
<content></content>
<content>Chronic Kidney Disease Staging per NKF:</content>
<content></content>
<content>Stage I & II GFR >=60 Normal to Mildly Decreased</content>
<content>Stage III GFR 30- 59 Moderately Decreased</content>
<content>Stage IV GFR 15-29 Severely Decreased</content>
<content>Stage V GFR <15 Very Little GFR Left</content>
<content>ESRD GFR <15 on CHIEF HYDROELECTRIC STATION OPERATOR</content>
<content></content> Chloride Level 112 meq/L 98-107 MEDENT ([facility]) Carbon Dioxide Level 21 meq/L 21-32 MED[facility] ([facility]) Anion Gap 7 meq/L 8-16 [facility] ([facility]) Calcium Level 8.5 mg/dL 8.8-10.2 MEDENT ([facility]) ID Date Data Source [id number] 04/30/2020 12:39:00 PM EST [facility] Name Value Range Interpretation Code Description Data Jacqui rce(s) Supporting Document(s) Ast/Sgot 9 U/L 7-37 MEDENT ([facility]) Alt/SGPT 20 U/L 12-78 MEDENT ([facility]) Bilirubin,Direct Laboratory test result 0.0-0.2 [facility] ([facility] Alkaline Phosphatase 80 U/L 45-117 MED[facility] Bilirubin,Total 0.2 mg/dL 0.2-1.0 MEDENT ([facility]) Total Protein 5.8 GM/DL 6.4-8.2 MEDENT ([facility]) Albumin/Globulin Ratio 0.4 1.2-2.2 [facility] ([facility] Albumin 1.7 GM/DL 3.2-5.2 MEDENT ([facility]) ID Date Data Source [id number] 04/30/2020 12:39:00 PM EST [facility] Name Value Range Interpretation Code Description Data Jacqui rce(s) Supporting Document(s) CPK Creatine Phosphokinase 16 U/L 26-192 [facility] MB/CK Relative Index 6.25 [facility] <content>DIAGNOSIS CRITERIA</content>
<content>MMB ng/ml Relative Index (RI)</content>
<content>NON-AMI < or = 5 N/A</content>
<content>LOCKETT ZONE > 5 < or = 4</content>
<content>AMI > 5 > 4</content>
<content></content> CK-MB Value Mass Laboratory test result MEDENT ([facility]) Troponin I Laboratory test result MEDENT ([facility]) <content>Troponin I Reference Interval f or Siemens Rosen[place]n LOCI:</content>
<content></content>
<content>99th Percentile= 0.00-0.045 ng/ml</content>
<content></content>
<content>Risk Stratification:</content>
<content><= 0.10 ng/ml Decreased Risk for Adverse Clinical</content>
<content>Events.</content>
<content>0.10-1.50 ng/ml Increased Risk for Adverse Clinical</content>
<content>Events. Evaluation of additional</content>
<content>criterion and/or repeat testing in 2-6</content>
<content>hours is suggested to rule out myocardial</content>
<content>damage.</content>
<content>>= 1.50 ng/ml Indicative of Myocardial Injury.</content>
<content></content> ID Date Data Source [id number] 04/30/2020 12:39:00 PM EST [facility] Name Value Range Interpretation Code Description Data Jacqui rce(s) Supporting Document(s) aPTT in Blood by Coagulation assay 34.2 s 24.2-38.5 MEDENT ([facility]) Lactate [Mass/volume] in Serum or Plasma 0.9 mmol/L 0.4-2.0 MEDENT ([facility]) Y/N query for Sepsis Lactate Rule: Y ID Date Data Source [id number] 04/30/2020 12:39:00 PM EST [facility] Name Value Range Interpretation Code Description Data Jacqui rce(s) Supporting Document(s) Inr 1.21 [facility] ([facility]) THERAPUTIC HUMAN INR VALUES INDICATIONS NORMAL RANGES PROPHYLAXIS/TREATMENT OF: VENOUS THROMBOSIS 2.0-3.0 PULMONARY EMBOLISM 2.0-3.0 PREVENTION OF SYSTEMIC EMBOLISM FROM: TISSUE HEART VALVES 2.0-3.0 ACUTE MYOCARDIAL INFARCTION 2.0-3.0 VALVULAR HEART DISEASE 2.0-3.0 ATRIAL FIBRILLATION 2.0-3.0 MECHANICAL VALVES(HIGH RISK) 2.5-3.5 RECURRENT MYOCARDIAL INFARCTION 2.5-3.5 Prothrombin Time 15.6 s 12.5-14.3 MEDENT ([facility]) ID Date Data Source [id number] 04/30/2020 12:39:00 PM EST MEDENT ([facility]) Name Value Range Interpretation Code Description Data Jacqui rce(s) Supporting Document(s) Red Blood Count 2.98 10 4.00-5.40 MEDENT ([facility]) White Blood Count 11.1 10 4.0-10.0 MEDENT ([facility]) Hemoglobin 8.2 g/dL 12.0-15.5 [facility] Hematocrit 27.9 % 36.0-47.0 [facility] Mean Corpuscular Volume 93.6 fl 80.0-96.0 MEDENT ([facility]) Mean Corpuscular Hemoglobin 27.5 pg 27.0-33.0 ME DENT ([facility]) Neutrophils % 75.1 % 36.0-66.0 MEDENT ([facility]) Red Cell Distribution Width 19.2 % 11.5-14.5 ME DENT ([facility]) Platelet Count, Automated 201 10 150-450 MEDE NT ([facility]) Mean Corpuscular HGB Conc 29.4 g/dL 32.0-36.5 MEDE NT ([facility]) Kimball % 7.0 % 0.0-5.0 [facility] Lymph % 14.7 % 24.0-44.0 [facility] Eos % 1.5 % 0.0-3.0 [facility] Immature Granulocyte % 1.2 % 0-3.0 MEDENT ([facility]) Nucleated Red Blood Cell % 0.0 % 0-0 MED ENT ([facility]) Baso % 0.5 % 0.0-1.0 [facility] Neutrophils # 8.3 10 1.5-8.5 MEDENT ([facility]) Lymph # 1.6 10 1.5-5.0 MEDENT ([facility]) Kimball # 0.8 10 0.0-0.8 [facility] ([facility]) Baso # 0.1 10 0.0-0.2 [facility] ([facility]) Eos # 0.2 10 0.0-0.5 [facility] ([facility]) ID Date Data Source [id number] 04/29/2020 09:30:00 AM EST [facility] Name Value Range Interpretation Code Description Data Jacqui rce(s) Supporting Document(s) SARS coronavirus 2 RNA Not Detected [facility] [place] This lab was ordered by [facility] and reported by [facility]. ID Date Data Source [id number] 04/23/2020 09:57:00 AM EST [facility] Name Value Range Interpretation Code Description Data Jacqui rce(s) Supporting Document(s) SARS coronavirus 2 RNA [facility] This lab was ordered by [facility] and reported by [facility]. ID Date Data Source [id number] 04/17/2020 11:00:00 AM EST [facility] Name Value Range Interpretation Code Description Data Jacqui rce(s) Supporting Document(s) SARS coronavirus 2 RNA [facility] This lab was ordered by [facility] and reported by [facility]. ID Date Data Source [id number] 04/11/2020 09:00:00 AM EST [facility] Name Value Range Interpretation Code Description Data Jacqui rce(s) Supporting Document(s) SARS coronavirus 2 RNA [facility] This lab was ordered by [facility] and reported by [facility]. ID Date Data Source [id number] 04/07/2020 01:34:00 PM EST [facility] Name Value Range Interpretation Code Description Data Jacqui rce(s) Supporting Document(s) SARS coronavirus 2 RNA [facility] This lab was ordered by [facility] and reported by [facility]. ID Date Data Source [id number] 03/27/2020 09:24:00 PM EST [facility] Name Value Range Interpretation Code Description Data Jacqui rce(s) Supporting Document(s) SARS coronavirus 2 RNA [Presence] in Res piratory specimen by TIMMY with probe detection [facility] This lab was ordered by [facility] a nd reported by [facility]. ID Date Data Source [id number] 03/27/2020 06:50:00 PM EST [facility] ([facility]) Name Value Range Interpretation Code Description Data Jacqui rce(s) Supporting Document(s) C reactive protein [Mass/volume] in Serum or Plasma by High sensitivity method 5.64 mg/dL 0.00-0.30 [facility] ([facility] ) ID Date Data Source [id number] 03/27/2020 06:50:00 PM EST [facility] ([facility]) Name Value Range Interpretation Code Description Data Jacqui rce(s) Supporting Document(s) Glucose, Fasting 268 mg/dL 70-100 [facility] ([facility]) Blood Urea Nitrogen 75 mg/dL 7-18 [facility] ([facility]) Sodium Level 138 meq/L 136-145 [facility] ([facility]) Glomerular Filtration Rate 28.7 [facility] ([facility]) <content>Units are mL/min/1.73 m2</content>
<content></content>
<content>Chronic Kidney Disease Staging per NKF:</content>
<content></content>
<content>Stage I & II GFR >=60 Normal to Mildly Decreased</content>
<content>Stage III GFR 30- 59 Moderately Decreased</content>
<content>Stage IV GFR 15-29 Severely Decreased</content>
<content>Stage V GFR <15 Very Little GFR Left</content>
<content>ESRD GFR <15 on CHIEF HYDROELECTRIC STATION OPERATOR</content>
<content></content> Creatinine For GFR 1.84 mg/dL 0.55-1.30 [facility] ([facility]) Chloride Level 107 meq/L 98-107 [facility] ([facility]) Potassium Serum 4.7 meq/L 3.5-5.1 [facility] ([facility]) Calcium Level 8.3 mg/dL 8.8-10.2 [facility] ([facility]) Ast/Sgot 12 U/L 7-37 [facility]) Anion Gap 5 meq/L 8-16 [facility] ([facility]) Carbon Dioxide Level 26 meq/L 21-32 [facility] ([facility]) Alkaline Phosphatase 83 U/L 45-117 [facility] ([facility]) Bilirubin,Total 0.2 mg/dL 0.2-1.0 [facility] ([facility]) Alt/SGPT 19 U/L 12-78 [facility] ([facility]) Albumin 1.8 GM/DL 3.2-5.2 [facility] ([facility]) Total Protein 6.0 GM/DL 6.4-8.2 [facility] ([facility]) Albumin/Globulin Ratio 0.4 1.2-2.2 [facility] ([facility]) ID Date Data Source [id number] 03/27/2020 06:50:00 PM EST [facility] ([facility]) Name Value Range Interpretation Code Description Data Jacqui rce(s) Supporting Document(s) Erythrocyte sedimentation rate by Westergren method 125 mm/hr 0-30 [facility] ([facility]) ID Date Data Source [id number] 03/27/2020 06:50:00 PM EST [facility] ([facility]) Name Value Range Interpretation Code Description Data Jacqui rce(s) Supporting Document(s) White Blood Count 8.9 10 4.0-10.0 [facility] ([facility]) Red Blood Count 2.98 10 4.00-5.40 [facility] ([facility]) Hematocrit 26.6 % 36.0-47.0 [facility] ([facility]) Hemoglobin 7.7 g/dL 12.0-15.5 [facility] ([facility]) Mean Corpuscular HGB Conc 28.9 g/dL 32.0-36.5 MEDE NT ([facility]) Mean Corpuscular Hemoglobin 25.8 pg 27.0-33.0 [facility] ([facility]) Mean Corpuscular Volume 89.3 fl 80.0-96.0 [facility] ([facility]) Neutrophils % 70.7 % 36.0-66.0 [facility] ([facility]) Platelet Count, Automated 249 10 150-450 [facility] NT ([facility]) Red Cell Distribution Width 15.1 % 11.5-14.5 [facility] ([facility]) Lymph % 17.2 % 24.0-44.0 [facility] ([facility]) Kimball % 8.2 % 0.0-5.0 [facility] ([facility]) Eos % 1.0 % 0.0-3.0 [facility] ([facility]) Nucleated Red Blood Cell % 0.0 % 0-0 [facility] ([facility]) Baso % 0.8 % 0.0-1.0 [facility] ([facility]) Immature Granulocyte % 2.1 % 0-3.0 [facility] ([facility]) Kimball # 0.7 10 0.0-0.8 [facility] ([facility]) Neutrophils # 6.3 10 1.5-8.5 [facility] Lymph # 1.5 10 1.5-5.0 [facility] ([facility]) Eos # 0.1 10 0.0-0.5 [facility] ([facility]) Baso # 0.1 10 0.0-0.2 [facility] ([facility]) ID Date Data Source [id number] 03/20/2020 01:00:00 PM EST [facility] Name Value Range Interpretation Code Description Data Jacqui rce(s) Supporting Document(s) SARS coronavirus 2 RNA [facility] This lab was ordered by [facility] and reported by [facility]. ID Date Data Source [id number] 03/14/2020 06:00:00 AM EST [facility] Name Value Range Interpretation Code Description Data Jacqui rce(s) Supporting Document(s) SARS coronavirus 2 RNA [facility] This lab was ordered by [facility] and reported by [facility]. ID Date Data Source [id number] 03/07/2020 01:30:00 PM EST [facility] Name Value Range Interpretation Code Description Data Jacqui rce(s) Supporting Document(s) SARS coronavirus 2 RNA [facility] This lab was ordered by [facility] and reported by [facility]. ID Date Data Source [id number] 02/21/2020 03:22:00 PM EDT [facility] ([facility]) Name Value Range Interpretation Code Description Data Jacqui rce(s) Supporting Document(s) Ast/Sgot 13 U/L 7-37 [facility] ([facility]) Alt/SGPT 19 U/L 12-78 [facility] ([facility]) Alkaline Phosphatase 75 U/L 45-117 [facility] ([facility]) Bilirubin,Direct 0.1 mg/dL 0.0-0.2 [facility] ([facility]) Bilirubin,Total 0.4 mg/dL 0.2-1.0 [facility] ([facility]) Albumin 2.5 GM/DL 3.2-5.2 [facility] ([facility]) Albumin/Globulin Ratio 0.7 1.2-2.2 [facility] ([facility]) Total Protein 6.1 GM/DL 6.4-8.2 [facility] ([facility]) ID Date Data Source [id number] 02/21/2020 03:22:00 PM EDT [facility] ([facility]) Name Value Range Interpretation Code Description Data Jacqui rce(s) Supporting Document(s) CPK Creatine Phosphokinase 73 U/L 26-192 [facility] ([facility]) CK-MB Value Mass 1.4 ng/mL [facility] ([facility]) MB/CK Relative Index 1.92 [facility] ([facility]) <content>DIAGNOSIS CRITERIA</content>
<content>MMB ng/ml Relative Index (RI)</content>
<content>NON-AMI < or = 5 N/A</content>
<content>LOCKETT ZONE > 5 < or = 4</content>
<content>AMI > 5 > 4</content>
<content></content> Troponin I Laboratory test result [facility] ([facility]) <content>Troponin I Reference Interval f or Siemens Rosen[place]n LOCI:</content>
<content></content>
<content>99th Percentile= 0.00-0.045 ng/ml</content>
<content></content>
<content>Risk Stratification:</content>
<content><= 0.10 ng/ml Decreased Risk for Adverse Clinical</content>
<content>Events.</content>
<content>0.10-1.50 ng/ml Increased Risk for Adverse Clinical</content>
<content>Events. Evaluation of additional</content>
<content>criterion and/or repeat testing in 2-6</content>
<content>hours is suggested to rule out myocardial</content>
<content>damage.</content>
<content>>= 1.50 ng/ml Indicative of Myocardial Injury.</content>
<content></content> ID Date Data Source [id number] 02/21/2020 03:22:00 PM EDT [facility] Name Value Range Interpretation Code Description Data Jacqui rce(s) Supporting Document(s) Lactate [Mass/volume] in Serum or Plasma 1.0 mmol/L 0.4-2.0 [facility] ([facility]) Y/N query for Sepsis Lactate Rule: Y ID Date Data Source [id number] 09/26/2019 09:50:00 AM EDT [facility] ([facility]) Name Value Range Interpretation Code Description Data Jacqui rce(s) Supporting Document(s) Bedside Glucose 201 mg/dL 83-110 [facility] ID Date Data Source [id number] 09/23/2019 06:00:00 AM EDT [facility] Name Value Range Interpretation Code Description Data Jacqui rce(s) Supporting Document(s) SARS CORONAVIRUS 2 RNA [facility] This lab was ordered by [facility] and reported by [facility]. ID Date Data Source [id number] 09/11/2019 02:35:00 PM EDT [facility] Name Value Range Interpretation Code Description Data Jacqui rce(s) Supporting Document(s) SARS CORONAVIRUS 2 RNA [facility] This lab was ordered by [facility] and reported by [facility]. Procedure Social History Code Duration Value Status Description Data Source(s ) Smoking 05/21/2020 12:00:00 AM EST Former Smoker completed Former Smoker eCW1 ([facility]) Smoking 05/21/2020 12:00:00 AM EST Former Smoker completed Former Smoker [facility] ([facility]) Smoking 04/17/2019 12:00:00 AM EST Unknown if ever smoked comp leted Unknown if ever smoked [facility] Vital Signs ID Date Data Source UNK Name Value Range Interpretation Code Description Data Source(s) Oxygen saturation in Arterial blood by Pulse oximetry 16 % 16 % [facility] Body mass index (BMI) [Ratio] 40.62 kg/m2 40.62 kg/m2 [facility] Body weight 97.523 kg 97.523 kg [facility] wt reported from 05/22/20 at the facility Body height 154.9 cm 154.9 cm [facility] Respiratory rate 16 /min 16 /min [facility] Heart rate 70 /min 70 /min [facility] Diastolic blood pressure 72 mm[Hg] 72 mm[Hg] [facility] Systolic blood pressure 132 mm[Hg] 132 mm[Hg] S [facility] Diastolic blood pressure 72 mm[Hg] 72 mm[Hg] W1 ([facility]) Systolic blood pressure 130 mm[Hg] 130 mm[Hg] e CW1 ([facility]) Body temperature 96.4 [degF] 96.4 [degF] eCW1 ( [facility]) Respiratory rate 20 /min 20 /min eCW1 ([facility]) Heart rate 75 /min 75 /min eCW1 ([facility]) Body mass index (BMI) [Ratio] 43.31 kg/m2 43.31 kg/m2 eCW1 ([facility]) Body height 61.5 [in_i] 61.5 [in_i] eCW1 ([facility]) Body weight 233 [lb_av] 233 [lb_av] eCW1 ([facility]) Diastolic blood pressure 72 mm[Hg] 72 mm[Hg] eCW1 ([facility]) Systolic blood pressure 176 mm[Hg] 176 mm[Hg] e CW1 ([facility]) Body temperature 98.8 [degF] 98.8 [degF] eCW1 ( [facility]) Respiratory rate 18 /min 18 /min eCW1 ([facility]) Heart rate 73 /min 73 /min eCW1 ([facility]) Body mass index (BMI) [Ratio] 43.31 kg/m2 43.31 kg/m2 eCW1 ([facility]) Body height 61.5 [in_us] 61.5 [in_us] eCW1 ([facility]) Body weight Measured 233 [lb_av] 233 [lb_av] eC W1 ([facility]) Diastolic blood pressure 69 mm[Hg] 69 mm[Hg] eCW1 ([facility]) Systolic blood pressure 164 mm[Hg] 164 mm[Hg] e CW1 ([facility]) Body temperature 98.4 [degF] 98.4 [degF] eCW1 ( [facility]) Respiratory rate 20 /min 20 /min eCW1 ([facility]) Heart rate 68 /min 68 /min eCW1 ([facility]) Body mass index (BMI) [Ratio] 43.46 kg/m2 43.46 kg/m2 eCW1 ([facility]) Body height 61.5 [in_us] 61.5 [in_us] eCW1 ([facility]) Body weight Measured 233.8 [lb_av] 233.8 [lb_av ] eCW1 ([facility]) Diastolic blood pressure 63 mm[Hg] 63 mm[Hg] eCW1 ([facility]) Systolic blood pressure 133 mm[Hg] 133 mm[Hg] e CW1 ([facility]) Body temperature 97.1 [degF] 97.1 [degF] eCW1 ( [facility]) Respiratory rate 18 /min 18 /min eCW1 ([facility]) Heart rate 80 /min 80 /min eCW1 ([facility]) Body mass index (BMI) [Ratio] 41.63 kg/m2 41.63 kg/m2 eCW1 ([facility]) Body height 61.5 [in_us] 61.5 [in_us] eCW1 ([facility]) Body weight Measured 224 [lb_av] 224 [lb_av] eC W1 ([facility]) Patient Treatment Plan of Care Planned Activity Planned Date Details Description Data Source (s) 3 ML Insulin Lispro 100 UNT/ML Pen Injector [Humalog] 03/23/2020 12:00:00 AM [facility] Spironolactone 25 MG Oral Tablet 03/14/2020 12:00:00 AM [facility] pantoprazole 40 MG Delayed Release Oral Tablet 03/10/2020 12:00:00 AM [facility] clopidogrel 75 MG Oral Tablet 03/08/2020 12:00:00 AM [facility] atorvastatin 40 MG Oral Tablet 03/08/2020 12:00:00 AM [facility] Fluoxetine 10 MG Oral Capsule 03/08/2020 12:00:00 AM [facility] Hydralazine Hydrochloride 50 MG Oral Tablet 03/08/2020 12:00:00 AM [facility] Isosorbide Dinitrate 20 MG Oral Tablet 03/08/2020 12:00:00 AM [facility] ferrous gluconate 324 MG Oral Tablet 03/03/2020 12:00:00 AM [facility] Ondansetron 4 MG Oral Tablet 03/03/2020 12:00:00 AM EST [facility] Hydralazine Hydrochloride 100 MG Oral Tablet [facility]
--- NOTE | 2020-06-11 19:01 | HPE ---
HISTORY AND PHYSICAL DATE OF ADMISSION: 06/11/2020 HISTORY: Derrick Rodriguez is a 74-year-old brought in by [facility]. She had been getting IV normal saline. She was sent for altered mental status. She was unresponsive and there is no history available. The patient was not sent with any history of recent circumstances. She was getting normal saline there apparently for dehydration. She had a recent hospitalization in April of this year on the [facility] for osteomyelitis of the medial right ankle. She had an interventional procedure by vascular surgery, stenting to the right iliac artery extending into the common iliac artery, proximal stenting of the left external iliac artery extending into the common iliac artery proximal. This seemed to have lead to resolution of the osteomyelitis, as it is not present on exam today. The patient has had frequent hospitalizations. She was in the hospital in March as well. PAST MEDICAL HISTORY: 1. Dementia. It looks like she was verbal and following commands during her last hospitalization. 2. Hypertension with a history of congestive heart failure, preserved ejection fraction. 3. Type 2 diabetes now requiring insulin. 4. Hyperlipidemia. 5. Stage 3 chronic kidney disease. 6. Iron deficiency anemia. 7. Depression. 8. Gastroesophageal reflux disease. 9. Vitamin D deficiency. 10. History of gout. 11. History of sleep disorder. 12. She grew out methicillin-sensitive Staphylococcus aureus from her osteomyelitis during her last admission. 13. She also carries a history of chronic obstructive pulmonary disease. 14. Paroxysmal atrial fibrillation. SURGICAL HISTORY: 1. section. 2. Right ankle surgery. 3. Hysterectomy. 4. Left breast biopsy. 5. Appendectomy. 6. Revascularization procedure summarized above. 7. She had a colonoscopy on 09/26/2019; adenomatous colon polyps were removed from ascending colon, descending colon, and rectum. FAMILY HISTORY: Mother, father, sister, and daughter with diabetes. Mother and father with coronary disease. SOCIAL HISTORY: No alcohol or tobacco use, lives at [facility]. REVIEW OF SYSTEMS: Not obtainable. MEDICATIONS: Home medicines are: 1. Tylenol as needed. 2. Aspirin 81 mg daily. 3. Atorvastatin 40 mg daily. 4. Colace daily. 5. Calcitriol 0.25 mcg daily. 6. Cardiovascular 6.25 mg b.i.d. 7. Plavix 25 mg nightly at bedtime. 8. Ferrous sulfate 325 mg daily. 9. Fluoxetine 30 mg daily. 10. Hydralazine 50 mg b.i.d. 11. Detemir insulin 40 units in the morning, 40 units at bedtime. 12. NPH insulin 10 units daily. 13. Isordil 20 mg b.i.d. 14. Bacid one daily. 15. Aspercreme as needed. 16. Milk of Magnesia as needed. 17. Protonix 40 mg b.i.d. 18. Senna S two tablets b.i.d. 19. Spironolactone 25 mg daily. 20. Torsemide 20 mg daily. ALLERGIES: None listed to any medications. Latex, rubber, and milk are listed. PHYSICAL EXAMINATION: Vital signs: Blood pressure 156/70, pulse 67, respiratory rate 16, O2 saturation 96%, afebrile, 97.6 degrees. General Appearance: Elderly, lying in bed. She is not responding to verbal stimulation. She does move her arms and legs when stimulated. HEENT: Grossly unremarkable. She has a mask on. Neck: Supple, no JVD. Lungs: Decreased breath sounds, but clear. Heart: Regular rhythm, 1/6 systolic ejection murmur. Abdomen: Soft, nontender, no masses, non-distended. Extremities: No clubbing or cyanosis, trace peripheral edema. Venous stasis dermatitis present. Pulses are decreased but palpable in both feet. She has a small scabbed area over the medial malleolus of the right ankle, but there is no induration, redness, purulence in that area. She does not follow commands. LABORATORY DATA: White count 8.8, hemoglobin 10.6, platelets 125. Sodium 145, potassium 4.2, BUN 117, creatinine 1.79, glucose 285. Osmolarity of 347. Calcium 10.6. Troponin undetectable. BNP 1582. TSH normal. Chest x-ray showed cardiomegaly, cephalization, ? Mild CHF. Urinalysis only showed 2 white cells, no bacteria. IMPRESSION: 1. Altered mental status. Clinically she looks dry. Her BUN is very high and she is hyperosmolar. She will be admitted to a medical bed, rehydrated, followup lab work has been ordered, watch closely for development of congestive heart failure. Clinically she is dry. 2. Diabetes. Sliding insulin with coverage. She is hyperosmolar and unresponsive. 3. Congestive heart failure with preserved ejection fraction. Echocardiogram in March showed a normal ejection fraction. 4. Chronic kidney disease stage 3-4. Her eGFR is hovering around 30. Her BUN is significantly elevated from baseline. Her BUN was 40 a month ago and now for the last month it has been up around 100. Diuretics are being held. IV fluid is being given. 5. History of osteomyelitis of the right ankle. White count is normal and there is nothing impressive on exam. The area looks well healed after the revascularization procedure. 6. History of depression. Continue her fluoxetine if I can get her to take p.o. adequately. 7. History of atrial fibrillation. She is in sinus rhythm on EKG. Continue her Plavix and carvedilol. ADVANCED DIRECTIVE: Her MOLST form is with her. It is DNR/DNI, no tube feedings, but IV fluids and antibiotics are permissible.
--- NOTE | 2020-06-11 19:49 | ECGEPIP ---
[facility] - ED Test Date: 2020-06-11 Pat Name: TABITHA ALEXANDRA Department: Room: - Gender: Female Network Account Manager: SHARON : 1945 Requested By: CHUY CALI Order Number: [id number] Reading MD: Oswaldo Marino Measurements Intervals [place] Rate: 68 P: 60 IA: 166 QRS: -16 QRSD: 78 T: 58 QT: 408 QTc: 433 Interpretive Statements Normal sinus rhythm Minimal voltage criteria for LVH, may be normal variant ( R in aVL ) POOR R WAVE PROGRESSION SIMILAR TO 04/30/20 Electronically Signed on 06-11-2020 19:49:11 EST by Oswaldo Marino
[2020-06-11 19:50] LABS: RSV AMPLIFICATION NEGATIVE (NEGATIVE)
[2020-06-11] MEDS ORDERED: THERTAB52 PO (20:03)
[2020-06-11] MEDS ORDERED: ONDA-83 PO (20:03)
[2020-06-11] MEDS ORDERED: JUVEPOW3 PO (20:03)
[2020-06-11] MEDS: **hydrALAZINE** 50 MG TAB PO SCH ×2 (21:00→21:32)
[2020-06-11] MEDS: CARVedilol 6.25 MG TAB PO SCH ×2 (21:00→21:32)
[2020-06-11] MEDS: LEVEMIR (INSULIN DETEMIR) 1 UNITS/0.01ML SC SCH (21:00)
[2020-06-11] MEDS: ATORVASTATIN 20 MG TAB PO SCH ×2 (21:00→21:31)
[2020-06-11] MEDS ORDERED: **hydrALAZINE** 10 MG TAB PO PRN (22:00)
[2020-06-11] MEDS: HumaLOG INSULIN (NovoLOG) PER UNIT SC SCH (22:00)
[2020-06-12] MEDS ORDERED: amLODIPine 5 MG TAB PO ONE (01:45)
[2020-06-12] MEDS ORDERED: LABETALOL 100MG/20ML VIAL IV ONE ×2 (01:45)
[2020-06-12 03:24] VITALS: BP 157/69
[2020-06-12] MEDS: NS 1,000 ML IV SCH (04:13)
[2020-06-12 06:00] VITALS: BP 121/70
[2020-06-12] MEDS: HumaLOG INSULIN (NovoLOG) PER UNIT SC SCH ×4 (06:00→18:00)
[2020-06-12 06:43] LABS: HEMATOCRIT 34.5 % (36.0-47.0); HEMOGLOBIN 10.6 g/dl (12.0-15.5); MEAN CORPUSCULAR HEMOGLOBIN 29.3 pg (27.0-33.0); MEAN CORPUSCULAR HGB CONC 30.7 g/dl (32.0-36.5); MEAN CORPUSCULAR VOLUME 95.3 fl (80.0-96.0); PLATELET COUNT, AUTOMATED 128 10^3/uL (150-450); RED BLOOD COUNT 3.62 10^6/uL (4.00-5.40); WHITE BLOOD COUNT 8.8 10^3/uL (4.0-10.0)
[2020-06-12 07:06] LABS: CALCIUM LEVEL 10.2 MG/DL (8.8-10.2); CREATININE FOR GFR 1.6 MG/DL (0.55-1.30); GLOMERULAR FILTRATION RATE 33.7 (>39)
[2020-06-12] MEDS: CLOPIDOGREL 75 MG TAB PO SCH (09:30)
[2020-06-12] MEDS: FLUoxetine 10 MG CAP PO SCH (09:30)
[2020-06-12] MEDS: PANTOPRAZOLE 40MG TAB (PROTONIX) PO SCH (09:30)
[2020-06-12] MEDS: CARVedilol 6.25 MG TAB PO SCH ×2 (09:30→21:53)
[2020-06-12] MEDS: **hydrALAZINE** 50 MG TAB PO SCH ×2 (09:30→21:52)
[2020-06-12] MEDS: ENOXAPARIN 30MG/0.3ML SYRINGE (J1650 PER 10MG) SC SCH (09:31)
[2020-06-12] MEDS: NS 0.45% 1,000 ML IV SCH ×2 (09:39→18:42)
[2020-06-12] MEDS ORDERED: ONDANSETRON 4MG/2ML VIAL IV PRN (10:00)
[2020-06-12] MEDS: NYSTATIN 100,000 UNITS/GM TOPICAL PWD 15 GM TOP SCH ×2 (13:05→21:53)
[2020-06-12 14:00] VITALS: BP 141/69
[2020-06-12 18:00] VITALS: BP 136/71
[2020-06-12] MEDS: ATORVASTATIN 20 MG TAB PO SCH (21:51)
[2020-06-12] MEDS: LEVEMIR (INSULIN DETEMIR) 1 UNITS/0.01ML SC SCH (21:53)
[2020-06-12 22:00] VITALS: BP 149/74
[2020-06-13] MEDS: HumaLOG INSULIN (NovoLOG) PER UNIT SC SCH ×4 (00:26→18:45)
[2020-06-13 02:00] VITALS: BP 160/77
[2020-06-13] MEDS: NS 0.45% 1,000 ML IV SCH (03:14)
[2020-06-13 06:00] VITALS: BP 160/72
[2020-06-13 06:15] LABS: HEMATOCRIT 33.4 % (36.0-47.0); HEMOGLOBIN 10.3 g/dl (12.0-15.5); MEAN CORPUSCULAR HEMOGLOBIN 29.2 pg (27.0-33.0); MEAN CORPUSCULAR HGB CONC 30.8 g/dl (32.0-36.5); MEAN CORPUSCULAR VOLUME 94.6 fl (80.0-96.0); PLATELET COUNT, AUTOMATED 123 10^3/uL (150-450); RED BLOOD COUNT 3.53 10^6/uL (4.00-5.40); WHITE BLOOD COUNT 6.6 10^3/uL (4.0-10.0)
[2020-06-13 06:48] LABS: CALCIUM LEVEL 9.3 MG/DL (8.8-10.2); CREATININE FOR GFR 1.17 MG/DL (0.55-1.30); GLOMERULAR FILTRATION RATE 48.4 (>39); POTASSIUM SERUM 3.8 MEQ/L (3.5-5.1)
[2020-06-13] MEDS: PANTOPRAZOLE 40MG TAB (PROTONIX) PO SCH (08:02)
[2020-06-13] MEDS: FLUoxetine 10 MG CAP PO SCH (08:02)
[2020-06-13] MEDS: **hydrALAZINE** 50 MG TAB PO SCH ×3 (08:02→21:19)
[2020-06-13] MEDS: CLOPIDOGREL 75 MG TAB PO SCH (08:02)
[2020-06-13] MEDS: CARVedilol 6.25 MG TAB PO SCH ×2 (08:02→21:20)
[2020-06-13] MEDS: NYSTATIN 100,000 UNITS/GM TOPICAL PWD 15 GM TOP SCH ×2 (08:06→21:21)
[2020-06-13] MEDS: ENOXAPARIN 30MG/0.3ML SYRINGE (J1650 PER 10MG) SC SCH (08:06)
--- NOTE | 2020-06-13 08:41 | IPN ---
PROGRESS NOTE DATE: 06/13/2020 SUBJECTIVE: Derrick is here for her hyperosmolar state. Her mental status has improved from yesterday and blood sugars are significantly improved and osmolarity is falling in a progressive controlled manner. PHYSICAL EXAMINATION: VITAL SIGNS: Blood pressure 171/70, pulse is 78, respiratory rate is 20. GENERAL APPEARANCE: Alert, answers questions, follows commands better. LUNGS: Clear. HEART: Regular rate and rhythm. ABDOMEN: Soft, nontender. EXTREMITIES: Trace peripheral edema. LABORATORY DATA: White count is 6.6, hemoglobin is 10.3, platelets is 123,000, sodium is 147, potassium is 3.8, BUN 61, creatinine is 1.7, glucose is 145, osmolarity is 317. Blood sugars have all been under 200 for the last day. IMPRESSION: 1. Metabolic encephalopathy secondary to hyperosmolar state. This has been improving on a daily basis. At this point, we are going to stop her IV fluids, watch her osmolarity closely. 2. History of congestive heart failure with preserved ejection fraction. Had an echocardiogram on 04/14, ejection fraction was normal. Stopping IV fluids. 3. Diabetes, sliding scale insulin coverage, hyperosmolar state is improving. 4. Chronic kidney disease with acute kidney injury, renal function improved, seems to be back at her baseline. 5. History of atrial fibrillation, continue her current medications. If she remains stable, she could possibly be transferred back to [facility] tomorrow or the next day.
[2020-06-13 10:00] VITALS: BP 174/75
[2020-06-13 15:26] VITALS: BP 148/59
[2020-06-13 18:00] VITALS: BP 148/61
[2020-06-13] MEDS: LEVEMIR (INSULIN DETEMIR) 1 UNITS/0.01ML SC SCH (21:19)
[2020-06-13] MEDS: ATORVASTATIN 20 MG TAB PO SCH (21:20)
[2020-06-13 22:00] VITALS: BP 155/66
[2020-06-14] MEDS: HumaLOG INSULIN (NovoLOG) PER UNIT SC SCH ×4 (00:02→18:46)
[2020-06-14 06:00] VITALS: BP 150/60
[2020-06-14] MEDS: **hydrALAZINE** 50 MG TAB PO SCH ×3 (06:21→21:17)
[2020-06-14 06:38] LABS: HEMATOCRIT 34.3 % (36.0-47.0); HEMOGLOBIN 10.5 g/dl (12.0-15.5); MEAN CORPUSCULAR HEMOGLOBIN 29.2 pg (27.0-33.0); MEAN CORPUSCULAR HGB CONC 30.6 g/dl (32.0-36.5); MEAN CORPUSCULAR VOLUME 95.5 fl (80.0-96.0); PLATELET COUNT, AUTOMATED 119 10^3/uL (150-450); RED BLOOD COUNT 3.59 10^6/uL (4.00-5.40); WHITE BLOOD COUNT 7.5 10^3/uL (4.0-10.0)
[2020-06-14 07:00] LABS: CALCIUM LEVEL 9.3 MG/DL (8.8-10.2); CREATININE FOR GFR 1.36 MG/DL (0.55-1.30); GLOMERULAR FILTRATION RATE 40.7 (>39); POTASSIUM SERUM 3.4 MEQ/L (3.5-5.1)
[2020-06-14] MEDS: CLOPIDOGREL 75 MG TAB PO SCH (08:14)
[2020-06-14] MEDS: PANTOPRAZOLE 40MG TAB (PROTONIX) PO SCH (08:14)
[2020-06-14] MEDS: CARVedilol 6.25 MG TAB PO SCH ×2 (08:14→20:11)
[2020-06-14] MEDS: ENOXAPARIN 30MG/0.3ML SYRINGE (J1650 PER 10MG) SC SCH (08:15)
[2020-06-14] MEDS: NYSTATIN 100,000 UNITS/GM TOPICAL PWD 15 GM TOP SCH ×2 (08:15→20:13)
[2020-06-14] MEDS: FLUoxetine 10 MG CAP PO SCH (08:15)
--- NOTE | 2020-06-14 10:17 | DSES ---
DISCHARGE SUMMARY DATE OF ADMISSION: 06/11/2020 DATE OF DISCHARGE: 06/14/2020 PRINCIPAL DIAGNOSIS: Metabolic encephalopathy secondary to hyperosmolar state. SECONDARY DIAGNOSES: Diabetes under control, congestive heart failure with preserved ejection fraction, chronic kidney disease with acute kidney injury-resolved, chronic atrial fibrillation. HISTORY OF PRESENT ILLNESS: Derrick Rodriguez was admitted with altered mental status. Please see details in history and physical from admission. HOSPITAL COURSE: She was admitted to a medical bed. Diabetes became medically controlled. She was hydrated. Her hyperosmolar state resolved and her mental status returned to baseline. Day of discharge, she is quite interactive with the staff. She is eating better. Low sugars have improved. Osmolality has approached normal. She seems to be significantly improved. PHYSICAL EXAMINATION: Blood pressure 120/54, pulse 68. She is alert, answers questions. She interacts with the staff. Eating better every meal. Neck supple. Lungs clear. Heart regular rhythm. Abdomen soft, nontender. Trace peripheral edema. LABORATORY DATA: Blood sugars have all been below 200 for the last two days. Sodium 149, potassium 3.4, BUN 47, creatinine 1.36, glucose 150. White count 7.5, hemoglobin 10.5, platelets 119,000. COVID test was negative. DISPOSITION: She should be able to go back to [facility]. Activity is as tolerated. Carbohydrate diet. Recommend pushing water and avoiding diuretics if possible. MEDICINES ON DISCHARGE: Will continue to be: 1. Tylenol as needed. 2. one packet apparently daily. 3. Aspirin 81 mg daily. 4. Atorvastatin 40 mg daily. 5. Bowel care as before. 6. Carvedilol 6.25 mg b.i.d. 7. Plavix 75 mg daily. 8. Ferrous sulfate 325 mg daily. 9. Fluoxetine 30 mg daily. 10.Glucagon as needed for hyperglycemia. 11.Hydralazine 50 mg b.i.d. 12.Levemir 40 units in the morning and 20 units in the evening. 13.She also apparently takes NPH Insulin 10 units daily. 14.Isordil 20 mg b.i.d. 15.Bacid daily. 16.Eucerin cream as needed. 17.Aspercreme as needed. 18.Milk of Magnesia as needed. 19.Nepro with CarbSteady 240 mL after meals if p.o. intake is less than 50%. 20.Zofran 4 mg daily. 21.Protonix 40 mg b.i.d. 22.Torsemide 20 mg daily has been stopped on discharge. No pending labs.
[2020-06-14 14:00] VITALS: BP 133/61
[2020-06-14] MEDS: ATORVASTATIN 20 MG TAB PO SCH (20:12)
[2020-06-14] MEDS: LEVEMIR (INSULIN DETEMIR) 1 UNITS/0.01ML SC SCH (20:12)
[2020-06-14 22:00] VITALS: BP 146/63
[2020-06-15] MEDS: HumaLOG INSULIN (NovoLOG) PER UNIT SC SCH ×4 (00:19→18:08)
[2020-06-15] MEDS: **hydrALAZINE** 50 MG TAB PO SCH ×3 (05:46→21:26)
[2020-06-15 06:00] VITALS: BP 172/70
[2020-06-15 06:07] LABS: HEMATOCRIT 33.5 % (36.0-47.0); HEMOGLOBIN 10.4 g/dl (12.0-15.5); MEAN CORPUSCULAR HEMOGLOBIN 29.3 pg (27.0-33.0); MEAN CORPUSCULAR VOLUME 94.4 fl (80.0-96.0); PLATELET COUNT, AUTOMATED 107 10^3/uL (150-450); RED BLOOD COUNT 3.55 10^6/uL (4.00-5.40); WHITE BLOOD COUNT 6.3 10^3/uL (4.0-10.0)
[2020-06-15 06:25] LABS: CALCIUM LEVEL 8.1 MG/DL (8.8-10.2); CREATININE FOR GFR 1.42 MG/DL (0.55-1.30); GLOMERULAR FILTRATION RATE 38.7 (>39); POTASSIUM SERUM 3.4 MEQ/L (3.5-5.1)
[2020-06-15] MEDS: ENOXAPARIN 30MG/0.3ML SYRINGE (J1650 PER 10MG) SC SCH (09:09)
[2020-06-15] MEDS: FLUoxetine 10 MG CAP PO SCH (09:09)
[2020-06-15] MEDS: POTASSIUM CHLORIDE 10 MEQ SR TABLET PO SCH (09:09)
[2020-06-15] MEDS: CARVedilol 6.25 MG TAB PO SCH ×2 (09:09→21:27)
[2020-06-15] MEDS: PANTOPRAZOLE 40MG TAB (PROTONIX) PO SCH (09:10)
[2020-06-15] MEDS: NYSTATIN 100,000 UNITS/GM TOPICAL PWD 15 GM TOP SCH ×2 (09:10→21:28)
[2020-06-15] MEDS: CLOPIDOGREL 75 MG TAB PO SCH (09:10)
--- NOTE | 2020-06-15 10:08 | IPN ---
PROGRESS NOTE DATE: 06/15/2020 SUBJECTIVE: Derrick was discharged yesterday, but apparently [place] would not take her. They are concerned about her p.o. intake and sodium. My observation was the p.o. intake was improving and in deed today, her sodium is back to normal range, validating the original discharge plan. OBJECTIVE: VITAL SIGNS: As listed. GENERAL: Resting comfortably. Alert and answers questions. Does not look dehydrated. LUNGS: Clear. HEART: Regular rhythm. ABDOMEN: Soft and nontender. LABORATORY DATA: Sodium 144, potassium 3.4, BUN 48, creatinine 1.42. IMPRESSION: Hyponatremia, resolved with oral intake. PLAN: The patient is ready for discharge whenever [place] will take her.
[2020-06-15 14:00] VITALS: BP 165/66
[2020-06-15] MEDS: LEVEMIR (INSULIN DETEMIR) 1 UNITS/0.01ML SC SCH (21:25)
[2020-06-15] MEDS: ATORVASTATIN 20 MG TAB PO SCH (21:27)
[2020-06-15 22:00] VITALS: BP 150/78
[2020-06-16] MEDS: HumaLOG INSULIN (NovoLOG) PER UNIT SC SCH ×4 (00:29→21:00)
[2020-06-16 06:00] VITALS: BP 131/83
[2020-06-16 06:05] LABS: HEMATOCRIT 32.9 % (36.0-47.0); HEMOGLOBIN 10.3 g/dl (12.0-15.5); MEAN CORPUSCULAR HEMOGLOBIN 29.4 pg (27.0-33.0); MEAN CORPUSCULAR HGB CONC 31.3 g/dl (32.0-36.5); PLATELET COUNT, AUTOMATED 105 10^3/uL (150-450); WHITE BLOOD COUNT 6.8 10^3/uL (4.0-10.0)
[2020-06-16] MEDS: **hydrALAZINE** 50 MG TAB PO SCH ×3 (06:17→21:33)
[2020-06-16 06:21] LABS: CALCIUM LEVEL 8.2 MG/DL (8.8-10.2); CREATININE FOR GFR 1.51 MG/DL (0.55-1.30); GLOMERULAR FILTRATION RATE 36.1 (>39); POTASSIUM SERUM 3.6 MEQ/L (3.5-5.1)
[2020-06-16] MEDS: POTASSIUM CHLORIDE 10 MEQ SR TABLET PO SCH ×2 (09:00→10:39)
[2020-06-16] MEDS: ENOXAPARIN 30MG/0.3ML SYRINGE (J1650 PER 10MG) SC SCH ×2 (09:00→10:41)
[2020-06-16] MEDS: CLOPIDOGREL 75 MG TAB PO SCH ×2 (09:00→10:40)
[2020-06-16] MEDS: FLUoxetine 10 MG CAP PO SCH ×2 (09:00→10:39)
[2020-06-16] MEDS: CARVedilol 6.25 MG TAB PO SCH ×3 (09:00→21:33)
[2020-06-16] MEDS: PANTOPRAZOLE 40MG TAB (PROTONIX) PO SCH ×2 (09:00→10:40)
--- NOTE | 2020-06-16 09:41 | IPN ---
PROGRESS NOTE DATE: 06/16/2020 SUBJECTIVE: Derrick's labs continue to show the expected resolution of her hypernatremia. I discharged her on the but apparently [place] would not take her as they were concerned about her oral intake and hypernatremia which I expected would resolve over the next few days. Indeed, each day her sodium has improved, today it is down to 140. I anticipate they will accept her tomorrow.
[2020-06-16] MEDS: NYSTATIN 100,000 UNITS/GM TOPICAL PWD 15 GM TOP SCH ×2 (10:40→21:29)
[2020-06-16] MEDS: LEVEMIR (INSULIN DETEMIR) 1 UNITS/0.01ML SC SCH (21:29)
[2020-06-16] MEDS: ATORVASTATIN 20 MG TAB PO SCH (21:30)
[2020-06-16 22:00] VITALS: BP 132/59
[2020-06-17] MEDS: **hydrALAZINE** 50 MG TAB PO SCH ×3 (05:39→21:22)
[2020-06-17 06:00] VITALS: BP 122/42
[2020-06-17 06:02] LABS: HEMATOCRIT 32.1 % (36.0-47.0); HEMOGLOBIN 9.8 g/dl (12.0-15.5); MEAN CORPUSCULAR HEMOGLOBIN 28.7 pg (27.0-33.0); MEAN CORPUSCULAR HGB CONC 30.5 g/dl (32.0-36.5); MEAN CORPUSCULAR VOLUME 94.1 fl (80.0-96.0); PLATELET COUNT, AUTOMATED 110 10^3/uL (150-450); RED BLOOD COUNT 3.41 10^6/uL (4.00-5.40); WHITE BLOOD COUNT 6.8 10^3/uL (4.0-10.0)
[2020-06-17 06:19] LABS: CALCIUM LEVEL 7.8 MG/DL (8.8-10.2); CREATININE FOR GFR 1.42 MG/DL (0.55-1.30); GLOMERULAR FILTRATION RATE 38.7 (>39); POTASSIUM SERUM 3.8 MEQ/L (3.5-5.1)
[2020-06-17] MEDS: CLOPIDOGREL 75 MG TAB PO SCH (08:02)
[2020-06-17] MEDS: POTASSIUM CHLORIDE 10 MEQ SR TABLET PO SCH (08:02)
[2020-06-17] MEDS: NYSTATIN 100,000 UNITS/GM TOPICAL PWD 15 GM TOP SCH ×2 (08:02→21:23)
[2020-06-17] MEDS: FLUoxetine 10 MG CAP PO SCH (08:02)
[2020-06-17] MEDS: CARVedilol 6.25 MG TAB PO SCH ×2 (08:03→21:22)
[2020-06-17] MEDS: PANTOPRAZOLE 40MG TAB (PROTONIX) PO SCH (08:03)
[2020-06-17] MEDS: ENOXAPARIN 30MG/0.3ML SYRINGE (J1650 PER 10MG) SC SCH (08:04)
[2020-06-17] MEDS: HumaLOG INSULIN (NovoLOG) PER UNIT SC SCH ×4 (08:04→20:26)
--- NOTE | 2020-06-17 12:21 | DSES ---
DISCHARGE SUMMARY ADDENDUM DATE OF ADMISSION: 06/11/2020 DATE OF DISCHARGE: 06/14/2020 ADDENDUM: I will discharge on 06/14/2020. Currently, [place] would not take her because of her sodium, which I anticipate it would correct with resumption of her feedings. As suspected, her sodium has improved on a daily basis. She could easily have gone to [place] on Wednesday. Apparently, they do not have a bed until tomorrow. I have put discharge orders in so she can go in the morning. Most recent electrolytes show sodium 140, potassium 3.8, BUN 43, creatinine 1.4. CBC looks unremarkable. Blood sugars are acceptable. DISCHARGE: She will be discharged on the same orders that I gave on 06/14/2020. Torsemide should still be held on discharge.
[2020-06-17 14:00] VITALS: BP 119/47
[2020-06-17] MEDS: LEVEMIR (INSULIN DETEMIR) 1 UNITS/0.01ML SC SCH (21:22)
[2020-06-17] MEDS: ATORVASTATIN 20 MG TAB PO SCH (21:22)
[2020-06-17 22:00] VITALS: BP 148/62
[2020-06-18] MEDS: **hydrALAZINE** 50 MG TAB PO SCH (05:10)
[2020-06-18 06:00] VITALS: BP 131/68
[2020-06-18 07:04] LABS: HEMATOCRIT 30.4 % (36.0-47.0); HEMOGLOBIN 9.4 g/dl (12.0-15.5); MEAN CORPUSCULAR HEMOGLOBIN 28.9 pg (27.0-33.0); MEAN CORPUSCULAR HGB CONC 30.9 g/dl (32.0-36.5); MEAN CORPUSCULAR VOLUME 93.5 fl (80.0-96.0); PLATELET COUNT, AUTOMATED 116 10^3/uL (150-450); RED BLOOD COUNT 3.25 10^6/uL (4.00-5.40); WHITE BLOOD COUNT 5.9 10^3/uL (4.0-10.0)
[2020-06-18 07:31] LABS: CALCIUM LEVEL 7.6 MG/DL (8.8-10.2); CREATININE FOR GFR 1.39 MG/DL (0.55-1.30); GLOMERULAR FILTRATION RATE 39.6 (>39)
[2020-06-18] MEDS: POTASSIUM CHLORIDE 10 MEQ SR TABLET PO SCH (08:14)
[2020-06-18] MEDS: HumaLOG INSULIN (NovoLOG) PER UNIT SC SCH (08:14)
[2020-06-18] MEDS: FLUoxetine 10 MG CAP PO SCH (08:14)
[2020-06-18] MEDS: PANTOPRAZOLE 40MG TAB (PROTONIX) PO SCH (08:14)
[2020-06-18] MEDS: NYSTATIN 100,000 UNITS/GM TOPICAL PWD 15 GM TOP SCH (08:14)
[2020-06-18] MEDS: CLOPIDOGREL 75 MG TAB PO SCH (08:15)
[2020-06-18] MEDS: ENOXAPARIN 30MG/0.3ML SYRINGE (J1650 PER 10MG) SC SCH (08:15)
[2020-06-18 08:17] VITALS: BP 165/55
[2020-06-18] MEDS: CARVedilol 6.25 MG TAB PO SCH (08:17)
--- NOTE | 2020-06-18 19:14 | DS.PDOC ---
Discharge Summary General Date of Admission Jun 11, 2020 at 17:48 Date of Discharge 06/18/20 Attending Physician: Blanca Solano MD Discharge Summary HPI: Patient is a 74-year-old brought in from [facility] on 06/11/20 for altered mental status. She was unresponsive and there was no history available on admission. The patient was not sent with any history of recent circumstances. She was getting normal saline there apparently for dehydration. She had a recent hospitalization in April of this year on the Hospitalist Service for osteomyelitis of the medial right ankle. She had an interventional procedure by vascular surgery, stenting to the right iliac artery extending into the common iliac artery, proximal stenting of the left external iliac artery extending into the common iliac artery proximal. This seemed to have lead to resolution of the osteomyelitis, as it is not present on exam today. The patient has had frequent hospitalizations. She was in the hospital in March as well. HOSPITAL COURSE: Diabetes became medically controlled. She was hydrated with IVFs . Her hyperosmolar state resolved and her mental status returned to baseline. Day of discharge, she was interactive with the staff, cooperative and appeared at her baseline. Appetite had improved. Osmolality has approached normal. She was discharged back with medication changes addressed on 06/18/20. At time of discharge, patient denied chest pain, n/v/d, fevers, chills, SOB. PAST MEDICAL HISTORY: 1. Dementia. 2. Hypertension 3. Type 2 diabetes now requiring insulin. 4. Hyperlipidemia. 5. Stage 3 chronic kidney disease. 6. Iron deficiency anemia. 7. Depression. 8. Gastroesophageal reflux disease. 9. Vitamin D deficiency. 10. History of gout. 11. History of sleep disorder. 12. Hx of methicillin-sensitive Staphylococcus aureus 13. chronic obstructive pulmonary disease. 14. Paroxysmal atrial fibrillation. 15. CHF 16. hx of osteomyelitis SURGICAL HISTORY: 1. section. 2. Right ankle surgery. 3. Hysterectomy. 4. Left breast biopsy. 5. Appendectomy. 6. Revascularization procedure summarized above. 7. She had a colonoscopy on 09/26/2019; adenomatous colon polyps were removed from ascending colon, descending colon, and rectum. FAMILY HISTORY: Mother, father, sister, and daughter with diabetes. Mother and father with coronary disease. SOCIAL HISTORY: No alcohol or tobacco use, lives at [facility]. PHYSICAL EXAMINATION: VS: please see below GENERAL: AAOx3, cooperative, NAD HEENT: AT/NC Neck: SUPPLE CVS: S1S2+, no m/r/g PULM: CTAB, no w/r/r GI: soft, nontender, nondistended, BS + 4 quad EXT: trace peripheral edema b/l, no cyanosis clubbing NEURO; CN 2-12 intact LABORATORY DATA: Please see below. Sodium much improved. DISPOSITION: D/c to [facility] today, consistent carb diet, encourage hydration, activity as tolerated PRINCIPAL DIAGNOSIS: Metabolic encephalopathy secondary to hyperosmolar state. SECONDARY DIAGNOSES: Diabetes under control, congestive heart failure with preserved ejection fraction, chronic kidney disease with acute kidney injury- resolved, chronic atrial fibrillation. TIME SPENT ON DISCHARGE: Greater than 15 minutes. Vital Signs/I&Os Vital Signs Date Time Temp Pulse Resp B/P (MAP) Pulse Ox O2 Delivery O2 Flow Rate FiO2 06/18/20 08:17 68 165/55 06/18/20 06:00 98.6 18 95 Room Air 06/12/20 02:15 2.0 I&O- Last 24 Hours up to 6 AM 06/18/20 06:00 Intake Total 1770 ml Balance 1770 ml Laboratory Data Labs 24H Laboratory Tests 2 06/17/20 20:07: Bedside Glucose (Misc Panel) 176H 06/18/20 06:53: Nucleated Red Blood Cells % (auto) 0.0, Anion Gap 8, Glomerular Filtration Rate 39.6, Calcium Level 7.6L 06/18/20 08:31: Coronavirus (COVID-19)(PCR) NEGATIVE CBC/BMP Laboratory Tests 06/18/20 06:53 FSBS Laboratory Tests Test 06/17/20 20:07 Range/Units Bedside Glucose (Misc Panel) 176 83-110 MG/DL Microbiology Microbiology 06/14/20 Respiratory Virus Panel (PCR) (JOHNY) - Final, Complete 06/11/20 Blood Culture - Final, Complete NO GROWTH AFTER 5 DAYS 06/11/20 Blood Culture - Final, Complete NO GROWTH AFTER 5 DAYS Discharge Medications Scheduled Aspirin (Aspirin EC) 81 Mg Tab, 81 MG PO DAILY, (Reported) Atorvastatin Calcium (Atorvastatin Calcium) 40 Mg Tablet, 40 MG PO QHS, (Reported) Carvedilol (Carvedilol) 6.25 Mg Tab, 6.25 MG PO BID, (Reported) Clopidogrel Bisulfate (Plavix) 75 Mg Tablet, 75 MG PO QHS, (Reported) Ferrous Sulfate (Ferrous Sulfate) 325 Mg Tab, 325 MG PO DAILY, (Reported) Fluoxetine Hcl (Fluoxetine HCl) 10 Mg Capsule, 30 MG PO DAILY, (Reported) Hydralazine HCl (Hydralazine HCl) 50 Mg Tablet, 50 MG PO BID, (Reported) Insulin Detemir (Levemir Flextouch) 100 Unit/1 Ml Insuln.pen, 40 UNIT SC DAILY, (Reported) STARTING 03/28/2020 AT 0600, WAS TAKING 32 UNITS DAILY PRIOR Insulin Detemir (Levemir Flextouch) 100 Unit/1 Ml Insuln.pen, 20 UNIT SC QHS, (Reported) Insulin NPH Human Isophane (Humulin N Kwikpen) 100 Unit/1 Ml Insuln.pen, 10 UNITS SC DAILY, (Reported) AT NOON Isosorbide Dinitrate (Isosorbide Dinitrate) 20 Mg Tablet, 20 MG PO BID, (Reported) L.acidoph/L.bulg/B.bif/S.therm (Bacid Caplet) 1 Each Tablet, 1 TAB PO DAILY, (Reported) Lanolin Alcohol/Mo/W.pet/[place] (Eucerin Creme) 454 Gm Cream..g., 1 DOSE TOP BID, (Reported) BILATERAL LOWER EXTREMITIES Lidocaine HCl (Aspercreme) 4% Cream..g., 1 DOSE TOP TID, (Reported) APPLY SMALL AMOUNT TO RIGHT KNEE: 0600, 1400, 2100 Multivitamin,Therapeutic (Thera-Tabs) 1 Each Tablet, 1 TAB PO DAILY, (Reported) Nut.tx.imp.renal Fxn,Lac-Reduc (Nepro Carb Steady) 237 Ml Liquid, 240 ML PO PC, (Reported) GIVE AFTER MEALS IF PO INTAKE IS LESS THAN OR EQUAL TO 50% Ondansetron HCl (Ondansetron HCl) 4 Mg Tablet, 4 MG PO DAILY, (Reported) Pantoprazole Sodium (Pantoprazole Sodium) 40 Mg Tablet.dr, 40 MG PO BID, (Reported) 0600, 2000 Sennosides/Docusate Sodium (Senna-S Tablet) 1 Each Tablet, 2 TAB PO BID, (Reported) Scheduled PRN Acetaminophen (Acetaminophen) 325 Mg Tab, 650 MG PO Q4H PRN for PAIN / FEVER, (Reported) Bisacodyl (Bisacodyl) 10 Mg Supp.rect, 10 MG MA DAILY PRN for CONSTIPATION, (Reported) Glucagon,Human Recombinant (Glucagon Emergency Kit) 1 Mg Vial, 1 MG IM ASDIRECTED PRN for LOW BLOOD SUGAR, (Reported) Magnesium Hydroxide (Milk of Magnesia) 400 Mg/5 Ml Oral.susp, 400 MG PO DAILY PRN for CONSTIPATION, (Reported) Polyvinyl Alcohol (Artificial Tears) 15 Ml Drops, 1 DROP OU Q2H PRN for DRY EYES, (Reported) Sodium Phosphate,[place]-Dibasic (Enema) 133 Ml Enema, 1 GALO MA DAILY PRN for CONSTIPATION, (Reported) Miscellaneous Medications Arginine/Glutamine/Calcium Bmb (Elliott Packet) 1 Each Powd.pack, 1 POW PO, (Reported) Allergies Coded Allergies: Latex, Natural Rubber (Verified Allergy, Unknown, Rash, 02/21/20) milk (Verified Allergy, Unknown, 02/21/20) Blanca Solano MD Jun 18, 2020 19:14
== END 2020-06-18 10:27 | DRG 637 ==
LOC: M ED 13:55 → EDBD 13:55 → M ED INP 17:48 → M MSPAV 06-12 03:24
PROVIDERS: ADMIT Family Medicine; ATTEND Internal Medicine
DX: E11.00 Type 2 diabetes mellitus with hyperosmolarity without nonketotic hyperglycemic-hyperosmolar coma (NKHHC) (principal); G93.41 Metabolic encephalopathy; I13.0 Hypertensive heart and chronic kidney disease with heart failure and stage 1 through stage 4 chronic kidney disease, or unspecified chronic kidney disease; I50.32 Chronic diastolic (congestive) heart failure; N18.4 Chronic kidney disease, stage 4 (severe); I48.20 Chronic atrial fibrillation, unspecified; N17.9 Acute kidney failure, unspecified; E87.0 Hyperosmolality and hypernatremia; F03.90 Unspecified dementia, unspecified severity, without behavioral disturbance, psychotic disturbance, mood disturbance, and anxiety; J44.9 Chronic obstructive pulmonary disease, unspecified; E78.5 Hyperlipidemia, unspecified; E55.9 Vitamin D deficiency, unspecified; I48.0 Paroxysmal atrial fibrillation; D50.9 Iron deficiency anemia, unspecified; M10.9 Gout, unspecified; F32.9 Major depressive disorder, single episode, unspecified; Z79.899 Other long term (current) drug therapy; Z79.82 Long term (current) use of aspirin; Z91.040 Latex allergy status; Z91.011 Allergy to milk products

== ENCOUNTER → 2020-06-11 | Outpatient (REF) ==
[2020-06-11 11:28] LABS: HEMATOCRIT 32.7 % (36.0-47.0); MEAN CORPUSCULAR VOLUME 96.7 fl (80.0-96.0); PLATELET COUNT, AUTOMATED 120 10^3/uL (150-450); RED BLOOD COUNT 3.38 10^6/uL (4.00-5.40); WHITE BLOOD COUNT 9.8 10^3/uL (4.0-10.0)
[2020-06-11 11:46] LABS: HEMOGLOBIN 9.8 g/dl (12.0-15.5)
[2020-06-11 11:53] LABS: CALCIUM LEVEL 10.7 MG/DL (8.8-10.2); CREATININE FOR GFR 1.88 MG/DL (0.55-1.30)
[2020-06-11 12:05] LABS: PTH INTACT 15.7 PG/ML (18.5-88.0)
== END ==
PROVIDERS: ATTEND Internal Medicine
DX: E86.0 Dehydration (principal)

== ENCOUNTER → 2020-06-11 | Outpatient (REF) ==
[2020-06-10 10:29] LABS: BASO # 0.1 10^3/uL (0.0-0.2); BASO % 0.7 % (0.0-1.0); EOS % 0.2 % (0.0-3.0); HEMATOCRIT 39.2 % (36.0-47.0); LYMPH # 1.3 10^3/uL (1.5-5.0); LYMPH % 12.5 % (24.0-44.0); MEAN CORPUSCULAR HEMOGLOBIN 29.1 pg (27.0-33.0); MEAN CORPUSCULAR HGB CONC 30.6 g/dl (32.0-36.5); MEAN CORPUSCULAR VOLUME 95.1 fl (80.0-96.0); MONO # 0.8 10^3/uL (0.0-0.8); MONO % 7.6 % (2.0-8.0); NEUTROPHILS # 7.9 10^3/uL (1.5-8.5); NEUTROPHILS % 78.7 % (36.0-66.0); PLATELET COUNT, AUTOMATED 141 10^3/uL (150-450); RED BLOOD COUNT 4.12 10^6/uL (4.00-5.40)
[2020-06-10 10:42] LABS: BILIRUBIN,TOTAL 0.2 MG/DL (0.2-1.0); C REACTIVE PROTEIN QUANTITATIV 0.3 MG/DL (0.00-0.30); CALCIUM LEVEL 11.8 MG/DL (8.8-10.2); CREATININE FOR GFR 1.4 MG/DL (0.55-1.30); GLOMERULAR FILTRATION RATE 39.4 (>39); POTASSIUM SERUM 4.1 MEQ/L (3.5-5.1); TOTAL PROTEIN 6.2 GM/DL (6.4-8.2)
[2020-06-10 11:25] LABS: ERYTHROCYTE SEDIMENTATION RATE 25 mm/hr (0-30)
--- NOTE | 2020-06-12 09:48 | IPN ---
PROGRESS NOTE DATE: 06/12/2020 SUBJECTIVE: Derrick is a little more alert today. She is opening her eyes and saying a few words, answering questions but without specific answers. Renal function is not much improved, but she is becoming hypernatremic. Osmolality is slowly falling towards normal. PHYSICAL EXAMINATION: VITAL SIGNS: Afebrile. Vital signs stable; 121/70. GENERAL: She arouses to verbal and physical stimulation. Answers a few questions with yes/no answers. Moves arms and legs with equal strength on command. NECK: Supple. LUNGS: Clear. HEART: With a 1/6 systolic ejection murmur. ABDOMEN: Soft, nontender. No masses. EXTREMITIES: Trace peripheral edema. IMPRESSION AND PLAN: 1. Metabolic encephalopathy from hyperosmolar state: Continue hydration, change her I.V. fluids. She has improved, but she does not seem to be back to her baseline. 2. History of congestive heart failure: Watch closely with the I.V. fluids. She currently does not seem to be in any heart failure. Has had this in the past. 3. Diabetes: Sliding scale insulin coverage. Hyperosmolar state is responding to correction of this. 4. Chronic kidney disease stage 3-4: I.V. fluids are being provided and she seems to be at her baseline. 5. History of osteomyelitis right ankle: No sign of recurrence of this. 6. Atrial fibrillation: She is in sinus rhythm. Continue Plavix and Carvedilol.
== END ==
PROVIDERS: ATTEND Internal Medicine
DX: M86.9 Osteomyelitis, unspecified (principal)

== ENCOUNTER → 2020-06-12 | Outpatient (REF) ==
[~2020-06-12] MED LIST changes: +JUVEPOW3 PO; +ONDA-83 PO; +THERTAB52 PO
== END ==
PROVIDERS: ATTEND Internal Medicine
DX: E11.9 Type 2 diabetes mellitus without complications (principal); Z20.822 Contact with and (suspected) exposure to COVID-19

== ENCOUNTER → 2020-06-19 | Outpatient (REF) | payer MEDICARE, MEDICAID, OTHER | PROVIDERS: ATTEND Internal Medicine | DX: Z20.822 Contact with and (suspected) exposure to COVID-19 (principal) | CPT/HCPCS: 87641; U0003 ==

== ENCOUNTER → 2020-06-25 | Outpatient (REF) | payer MEDICARE, MEDICAID, OTHER ==
[2020-06-25 11:17] LABS: HEMOGLOBIN 8.9 g/dl (12.0-15.5); MEAN CORPUSCULAR HEMOGLOBIN 28.8 pg (27.0-33.0); MEAN CORPUSCULAR HGB CONC 29.7 g/dl (32.0-36.5); MEAN CORPUSCULAR VOLUME 97.1 fl (80.0-96.0); PLATELET COUNT, AUTOMATED 170 10^3/uL (150-450); RED BLOOD COUNT 3.09 10^6/uL (4.00-5.40); WHITE BLOOD COUNT 6.1 10^3/uL (4.0-10.0)
[2020-06-25 11:36] LABS: ALBUMIN 2.3 GM/DL (3.2-5.2); CREATININE FOR GFR 1.55 MG/DL (0.55-1.30); GLOMERULAR FILTRATION RATE 34.9 (>39)
[2020-06-25 11:39] LABS: CALCIUM LEVEL 8.3 MG/DL (8.8-10.2); CREATININE FOR GFR 1.58 MG/DL (0.55-1.30); GLOMERULAR FILTRATION RATE 34.1 (>39); POTASSIUM SERUM 5.1 MEQ/L (3.5-5.1)
[2020-06-25 11:46] LABS: PTH INTACT 107.4 PG/ML (18.5-88.0)
== END ==
PROVIDERS: ATTEND Internal Medicine
DX: N18.30 Chronic kidney disease, stage 3 unspecified (principal); Z79.899 Other long term (current) drug therapy

== ENCOUNTER → 2020-06-25 | Outpatient (REF) | payer MEDICARE, MEDICAID, OTHER ==
[2020-06-26 17:46] LABS: PERCENT SATURATION 18.9 % (13.2-45.0)
== END ==
LOC: M LAB REF 16:52
PROVIDERS: ATTEND Nurse Practitioner Family
DX: D50.9 Iron deficiency anemia, unspecified (principal)

== ENCOUNTER → 2020-06-26 | Outpatient (REF) | payer MEDICARE, MEDICAID, OTHER | PROVIDERS: ATTEND Internal Medicine | DX: Z20.822 Contact with and (suspected) exposure to COVID-19 (principal); Z86.14 Personal history of Methicillin resistant Staphylococcus aureus infection | CPT/HCPCS: 87641; U0003 ==

== ENCOUNTER → 2020-07-02 | Outpatient (REF) | payer MEDICARE, MEDICAID, OTHER ==
[2020-07-02 11:19] LABS: HEMATOCRIT 31.6 % (36.0-47.0); HEMOGLOBIN 9.3 g/dl (12.0-15.5); MEAN CORPUSCULAR HEMOGLOBIN 28.8 pg (27.0-33.0); MEAN CORPUSCULAR HGB CONC 29.4 g/dl (32.0-36.5); MEAN CORPUSCULAR VOLUME 97.8 fl (80.0-96.0); PLATELET COUNT, AUTOMATED 132 10^3/uL (150-450); RED BLOOD COUNT 3.23 10^6/uL (4.00-5.40); WHITE BLOOD COUNT 6.3 10^3/uL (4.0-10.0)
[2020-07-02 12:27] LABS: CREATININE FOR GFR 1.47 MG/DL (0.55-1.30); GLOMERULAR FILTRATION RATE 37.1 (>39); POTASSIUM SERUM 5.1 MEQ/L (3.5-5.1)
== END ==
PROVIDERS: ATTEND Internal Medicine
DX: N18.30 Chronic kidney disease, stage 3 unspecified (principal); Z79.899 Other long term (current) drug therapy

== ENCOUNTER → 2020-07-03 | Outpatient (REF) | payer MEDICARE, MEDICAID, OTHER | PROVIDERS: ATTEND Internal Medicine | DX: Z11.52 Encounter for screening for COVID-19 (principal) ==

== ENCOUNTER → 2020-07-07 | Outpatient (REF) | payer MEDICARE, MEDICAID, OTHER | PROVIDERS: ATTEND Internal Medicine | DX: R82.90 Unspecified abnormal findings in urine (principal) ==

== ENCOUNTER → 2020-07-16 | Outpatient (REF) | payer MEDICARE, MEDICAID, OTHER ==
[2020-07-16 10:40] LABS: HEMATOCRIT 29.3 % (36.0-47.0); HEMOGLOBIN 8.7 g/dl (12.0-15.5); MEAN CORPUSCULAR HEMOGLOBIN 29.3 pg (27.0-33.0); MEAN CORPUSCULAR HGB CONC 29.7 g/dl (32.0-36.5); MEAN CORPUSCULAR VOLUME 98.7 fl (80.0-96.0); PLATELET COUNT, AUTOMATED 160 10^3/uL (150-450); RED BLOOD COUNT 2.97 10^6/uL (4.00-5.40); WHITE BLOOD COUNT 6.4 10^3/uL (4.0-10.0)
[2020-07-16 11:02] LABS: CALCIUM LEVEL 8.2 MG/DL (8.8-10.2); CREATININE FOR GFR 1.5 MG/DL (0.55-1.30); GLOMERULAR FILTRATION RATE 36.2 (>39); POTASSIUM SERUM 5.2 MEQ/L (3.5-5.1)
[2020-07-16 11:07] LABS: HEMOGLOBIN A1c 6.9 %
== END ==
PROVIDERS: ATTEND Internal Medicine
DX: N18.30 Chronic kidney disease, stage 3 unspecified (principal); Z79.899 Other long term (current) drug therapy

== ENCOUNTER → 2020-07-16 | Outpatient (REF) | payer MEDICARE, MEDICAID, OTHER | PROVIDERS: ATTEND Internal Medicine | DX: E87.6 Hypokalemia (principal) ==

== ENCOUNTER → 2020-07-19 | Outpatient (REF) | payer MEDICARE, MEDICAID, OTHER ==
[2020-07-19 11:15] LABS: CALCIUM LEVEL 8.4 MG/DL (8.8-10.2); CREATININE FOR GFR 1.37 MG/DL (0.55-1.30); GLOMERULAR FILTRATION RATE 40.2 (>39); POTASSIUM SERUM 4.4 MEQ/L (3.5-5.1)
== END ==
PROVIDERS: ATTEND Internal Medicine
DX: I50.9 Heart failure, unspecified (principal)

== ENCOUNTER → 2020-07-24 | Outpatient (REF) | payer MEDICARE, MEDICAID, OTHER ==
[2020-07-24 10:07] LABS: HEMATOCRIT 30.6 % (36.0-47.0); MEAN CORPUSCULAR HEMOGLOBIN 29.1 pg (27.0-33.0); MEAN CORPUSCULAR HGB CONC 29.4 g/dl (32.0-36.5); PLATELET COUNT, AUTOMATED 157 10^3/uL (150-450); RED BLOOD COUNT 3.09 10^6/uL (4.00-5.40); WHITE BLOOD COUNT 7.9 10^3/uL (4.0-10.0)
[2020-07-24 10:35] LABS: CALCIUM LEVEL 8.4 MG/DL (8.8-10.2); CREATININE FOR GFR 1.59 MG/DL (0.55-1.30); GLOMERULAR FILTRATION RATE 33.9 (>39); POTASSIUM SERUM 5.5 MEQ/L (3.5-5.1)
== END ==
PROVIDERS: ATTEND Internal Medicine
DX: I50.9 Heart failure, unspecified (principal)

== ENCOUNTER → 2020-07-25 | Outpatient (REF) | payer MEDICARE, MEDICAID, OTHER ==
[2020-07-25 10:55] LABS: CALCIUM LEVEL 8.5 MG/DL (8.8-10.2); CREATININE FOR GFR 1.51 MG/DL (0.55-1.30)
== END ==
PROVIDERS: ATTEND Internal Medicine
DX: E87.5 Hyperkalemia (principal)

== ENCOUNTER → 2020-07-30 | Outpatient (REF) | payer MEDICARE, MEDICAID, OTHER ==
[2020-07-30 09:28] LABS: HEMATOCRIT 29.4 % (36.0-47.0); HEMOGLOBIN 8.7 g/dl (12.0-15.5); MEAN CORPUSCULAR HEMOGLOBIN 29.6 pg (27.0-33.0); MEAN CORPUSCULAR HGB CONC 29.6 g/dl (32.0-36.5); PLATELET COUNT, AUTOMATED 129 10^3/uL (150-450); RED BLOOD COUNT 2.94 10^6/uL (4.00-5.40); WHITE BLOOD COUNT 7.1 10^3/uL (4.0-10.0)
== END ==
PROVIDERS: ATTEND Physician Assistant
DX: I50.9 Heart failure, unspecified (principal)

== ENCOUNTER → 2020-07-31 | Outpatient (CLI) | payer MEDICARE, MEDICAID, OTHER ==
[~2020-07-31] MED LIST changes: +ACET65SU PR; +AZIT-12 PO; +CEFT1INJ5 IM; +FLUO10TA2 PO; +META28.32 PO
--- NOTE | 2020-07-31 16:49 | REPPI ---
INDICATION: CHF,HYPOXIA. COMPARISON: Portable chest dated 06/11/2020. TECHNIQUE: Single AP view with the patient semi upright. FINDINGS: The patient is rotated. I suspect there is a new large infiltrate inferiorly in the right lung, however, the right lung is partially obscured by patient rotation. Cardiac size upper normal. Study otherwise unremarkable. IMPRESSION: Large infiltrate inferiorly in the right lung. Recommend follow-up study without patient rotation. <Electronically signed by Enoc Squires > 07/31/20 [id number]
[2020-07-31 17:56] LABS: HEMATOCRIT 29.4 % (36.0-47.0); HEMOGLOBIN 8.5 g/dl (12.0-15.5); MEAN CORPUSCULAR HEMOGLOBIN 29.1 pg (27.0-33.0); MEAN CORPUSCULAR HGB CONC 28.9 g/dl (32.0-36.5); MEAN CORPUSCULAR VOLUME 100.7 fl (80.0-96.0); PLATELET COUNT, AUTOMATED 116 10^3/uL (150-450); RED BLOOD COUNT 2.92 10^6/uL (4.00-5.40)
[2020-07-31 18:28] LABS: CALCIUM LEVEL 8.5 MG/DL (8.8-10.2); CREATININE FOR GFR 1.58 MG/DL (0.55-1.30); GLOMERULAR FILTRATION RATE 34.1 (>39); POTASSIUM SERUM 4.6 MEQ/L (3.5-5.1)
== END ==
PROVIDERS: ATTEND Physician Assistant
DX: I50.9 Heart failure, unspecified (principal)

== ENCOUNTER → 2020-08-01 | Outpatient (REF) | payer MEDICARE, MEDICAID, OTHER | PROVIDERS: ATTEND Internal Medicine | DX: J18.9 Pneumonia, unspecified organism (principal) ==

== ENCOUNTER → 2020-08-06 | Outpatient (REF) | payer MEDICARE, MEDICAID, OTHER ==
--- NOTE | 2020-08-07 19:46 | IPN ---
PROGRESS NOTE DATE: 08/07/2020 SUBJECTIVE: Patient was seen and examined this morning at the bedside. She has diuresed very satisfactorily over the past 48 hours; net negative about 4.5 liters over the past 48 hours and she is only on 1 liter nasal cannula at the time of my visit today. Her creatinine did slightly bump up on the labs today and she is more alkalotic than she has been the prior days. Clinically her edema is improved. She denies any complaints. No more nausea. Denies shortness of breath at rest. OBJECTIVE: VITAL SIGNS: Temperature 99.1, pulse 64, respiratory rate 14, blood pressure 174/73, saturating 92% on 1 liter nasal cannula. INTAKE/OUTPUT: Intake yesterday was not fully recorded. Urine output was 3 liters. Weight in the bed scale today is 108.4 kg. GENERAL: Patient is seen awake, alert, oriented, lying rather flat in bed. A morbidly obese female in no apparent distress. HEENT: Extraocular muscles are intact. Neck is supple. Jugular veins are difficult to assess, but do not look elevated. HEART: Heart sounds are regular S1, S2. There is no peripheral edema. ABDOMEN: Soft and nontender. There is still some mild dependent edema and edema at the sacrum and hips. EXTREMITIES: Negative for clubbing or cyanosis. RESPIRATORY: She is seen on 1 liter nasal cannula. Breath sounds are diminished secondary to body habitus, but there is no crackle or rale. NEUROLOGIC: She is awake, alert and cooperative with physical exam. Appears to be at baseline mentation. GENITOURINARY: Shows external female vacuum catheter to canister. LABORATORY STUDIES: Today show sodium 142, potassium 4.1, bicarb has increased to 38, BUN 56, creatinine has increased to 1.7 from 1.4 yesterday. BNP 2,200. Hemoglobin 8.5, platelets 115,000. INPATIENT MEDICATIONS: I discontinued I.V. Lasix and switched to Torsemide 40 mg p.o. twice daily. I also gave a dose of Metolazone 2.5 mg p.o. times one. Patient received I.V. iron yesterday 300 mg of Venofer total. The remainder of her medications are unchanged as compared to yesterday. PROBLEMS: 1. CKD stage 3: Patient has mildly fluctuating creatinine in the setting of decompensated diastolic congestive heart failure and diuresis. Her creatinine did bump up slightly from 1.4 yesterday to 1.7 today. She has diuresed very nicely these past 48 hours and I am going to switch her over to an oral diuretic regimen now in anticipation of discharge within the next couple of days. 2. Diastolic congestive heart failure with recent exacerbation: Her volume status is improving. She is net negative 2-1/2 liters daily for the past two days. Her oxygen requirements are decreasing. She received I.V. Lasix along with albumin and now we are switching over to Torsemide 40 mg twice daily and I gave a dose of Metolazone today as well. 3. Hypertension: Blood pressures are very nicely controlled. Systolic is mostly in the 140's. Continue with current regimen of Amlodipine, Carvedilol, Hydralazine, Isordil plus diuretic. 4. Anemia related to chronic kidney disease and iron deficiency: Patient was given a dose of Venofer yesterday. Hemoglobin is suboptimal, but stable at 8.5. There is no need for transfusion at present. 5. Metabolic alkalosis: It is secondary to the aggressive diuresis. Her bicarbonate is up to 38. Her creatinine also did bump up slightly. We are switching now to oral diuretics.
== END ==
PROVIDERS: ATTEND Internal Medicine
DX: Z53.8 Procedure and treatment not carried out for other reasons (principal)

== ENCOUNTER → 2020-09-17 | Outpatient (REF) | payer MEDICARE, MEDICAID, OTHER ==
[2020-09-17 12:30] LABS: HEMATOCRIT 29.6 % (36.0-47.0); HEMOGLOBIN 8.6 g/dl (12.0-15.5); MEAN CORPUSCULAR HEMOGLOBIN 29.5 pg (27.0-33.0); MEAN CORPUSCULAR HGB CONC 29.1 g/dl (32.0-36.5); MEAN CORPUSCULAR VOLUME 101.4 fl (80.0-96.0); PLATELET COUNT, AUTOMATED 144 10^3/uL (150-450); RED BLOOD COUNT 2.92 10^6/uL (4.00-5.40); WHITE BLOOD COUNT 5.4 10^3/uL (4.0-10.0)
[2020-09-17 13:00] LABS: CALCIUM LEVEL 8.5 MG/DL (8.8-10.2); CREATININE FOR GFR 2.24 MG/DL (0.55-1.30); GLOMERULAR FILTRATION RATE 22.8 (>39)
== END ==
PROVIDERS: ATTEND Internal Medicine
DX: I50.9 Heart failure, unspecified (principal)

== ENCOUNTER → 2020-09-17 | Outpatient (REF) | payer MEDICARE, MEDICAID, OTHER ==
[2020-09-17 20:52] LABS: CALCIUM LEVEL 8.8 MG/DL (8.8-10.2); CREATININE FOR GFR 2.25 MG/DL (0.55-1.30); GLOMERULAR FILTRATION RATE 22.7 (>39); POTASSIUM SERUM 5.9 MEQ/L (3.5-5.1)
== END ==
PROVIDERS: ATTEND Internal Medicine
DX: I50.9 Heart failure, unspecified (principal)

== ENCOUNTER → 2020-09-18 | Outpatient (REF) | payer MEDICARE, MEDICAID, OTHER ==
[2020-09-18 10:28] LABS: CALCIUM LEVEL 8.8 MG/DL (8.8-10.2); CREATININE FOR GFR 1.92 MG/DL (0.55-1.30); GLOMERULAR FILTRATION RATE 27.3 (>39); POTASSIUM SERUM 5.7 MEQ/L (3.5-5.1)
== END ==
PROVIDERS: ATTEND Internal Medicine
DX: E87.5 Hyperkalemia (principal)

== ENCOUNTER → 2020-09-19 | Outpatient (REF) | payer MEDICARE, MEDICAID, OTHER ==
[~2020-09-19] MED LIST changes: +ACET-907 PO; +ACET650T3 PO; +CHLO50TA PO; +CLOP75TA2 PO; +COLA100C5 PO; +ELIQ2.5T PO; +FLUO-96 PO; -FLUO10CA16 PO; +FLUO10CA18 PO; -FLUO20CA20 PO; +HYDR-3715 PO; +HYDR-3910 PO; +HYDR-4571 PO; +ISOS20TA4 PO; -ISOS20TAB PO; +ONDA-84 PO; -ONDA8TAB10 PO; +POTA-151 PO; -POTA20TA6 PO; +PRED10TA2 PO; +[UNRECOGNIZED DRUG - CODE] PO
[2020-09-19 10:30] LABS: CALCIUM LEVEL 8.6 MG/DL (8.8-10.2); CREATININE FOR GFR 1.73 MG/DL (0.55-1.30); GLOMERULAR FILTRATION RATE 30.7 (>39); POTASSIUM SERUM 5.7 MEQ/L (3.5-5.1)
== END ==
PROVIDERS: ATTEND Internal Medicine
DX: E87.5 Hyperkalemia (principal)

== ENCOUNTER → 2020-09-20 | Outpatient (REF) | payer MEDICARE, MEDICAID, OTHER ==
[2020-09-20 10:02] LABS: CALCIUM LEVEL 8.4 MG/DL (8.8-10.2); CREATININE FOR GFR 1.65 MG/DL (0.55-1.30); GLOMERULAR FILTRATION RATE 32.5 (>39); POTASSIUM SERUM 5.3 MEQ/L (3.5-5.1)
== END ==
PROVIDERS: ATTEND Physician Assistant
DX: E87.6 Hypokalemia (principal)

== ENCOUNTER → 2020-09-24 | Outpatient (REF) | payer MEDICARE, MEDICAID, OTHER ==
[2020-09-24 11:38] LABS: HEMATOCRIT 29.4 % (36.0-47.0); HEMOGLOBIN 8.8 g/dl (12.0-15.5); MEAN CORPUSCULAR HEMOGLOBIN 29.7 pg (27.0-33.0); MEAN CORPUSCULAR HGB CONC 29.9 g/dl (32.0-36.5); MEAN CORPUSCULAR VOLUME 99.3 fl (80.0-96.0); PLATELET COUNT, AUTOMATED 143 10^3/uL (150-450); RED BLOOD COUNT 2.96 10^6/uL (4.00-5.40); WHITE BLOOD COUNT 6.5 10^3/uL (4.0-10.0)
[2020-09-24 11:57] LABS: CALCIUM LEVEL 8.8 MG/DL (8.8-10.2); CREATININE FOR GFR 1.84 MG/DL (0.55-1.30); GLOMERULAR FILTRATION RATE 28.6 (>39); POTASSIUM SERUM 5.3 MEQ/L (3.5-5.1)
== END ==
PROVIDERS: ATTEND Internal Medicine
DX: N18.9 Chronic kidney disease, unspecified (principal)

== ENCOUNTER → 2020-10-14 | Outpatient (REF) | payer MEDICARE, MEDICAID, OTHER ==
[~2020-10-14] MED LIST changes: -ACET-907 PO; -ACET650T3 PO; -CHLO50TA PO; -CLOP75TA2 PO; -COLA100C5 PO; -ELIQ2.5T PO; -FLUO-96 PO; +FLUO10CA16 PO; -FLUO10CA18 PO; +FLUO20CA20 PO; -HYDR-3715 PO; -HYDR-3910 PO; -HYDR-4571 PO; -ISOS20TA4 PO; +ISOS20TAB PO; -ONDA-84 PO; +ONDA8TAB10 PO; -POTA-151 PO; +POTA20TA6 PO; -PRED10TA2 PO; -[UNRECOGNIZED DRUG - CODE] PO
[2020-10-14 09:42] LABS: HEMATOCRIT 34.1 % (36.0-47.0); HEMOGLOBIN 9.9 g/dl (12.0-15.5); MEAN CORPUSCULAR HEMOGLOBIN 29.3 pg (27.0-33.0); MEAN CORPUSCULAR VOLUME 100.9 fl (80.0-96.0); PLATELET COUNT, AUTOMATED 143 10^3/uL (150-450); RED BLOOD COUNT 3.38 10^6/uL (4.00-5.40)
[2020-10-14 10:09] LABS: CALCIUM LEVEL 8.3 MG/DL (8.8-10.2); POTASSIUM SERUM 4.8 MEQ/L (3.5-5.1)
== END ==
PROVIDERS: ATTEND Physician Assistant
DX: N18.9 Chronic kidney disease, unspecified (principal); I50.9 Heart failure, unspecified

== ENCOUNTER → 2020-10-16 | Outpatient (REF) | payer MEDICARE, MEDICAID, OTHER | PROVIDERS: ATTEND Internal Medicine | DX: I50.9 Heart failure, unspecified (principal) ==

== ENCOUNTER → 2020-10-17 | Outpatient (REF) | payer MEDICARE, MEDICAID, OTHER ==
[~2020-10-17] MED LIST changes: +COLA100C5 PO
[2020-10-17 10:06] LABS: HEMATOCRIT 32.6 % (36.0-47.0); HEMOGLOBIN 9.7 g/dl (12.0-15.5); MEAN CORPUSCULAR HGB CONC 29.8 g/dl (32.0-36.5); MEAN CORPUSCULAR VOLUME 100.9 fl (80.0-96.0); PLATELET COUNT, AUTOMATED 145 10^3/uL (150-450); RED BLOOD COUNT 3.23 10^6/uL (4.00-5.40); WHITE BLOOD COUNT 6.2 10^3/uL (4.0-10.0)
[2020-10-17 10:40] LABS: CALCIUM LEVEL 8.1 MG/DL (8.8-10.2); CREATININE FOR GFR 1.75 MG/DL (0.55-1.30); GLOMERULAR FILTRATION RATE 30.3 (>39); MAGNESIUM LEVEL 2.4 MG/DL (1.8-2.4); PERCENT SATURATION 19.7 % (13.2-45.0); POTASSIUM SERUM 4.6 MEQ/L (3.5-5.1)
[2020-10-17 10:43] LABS: PTH INTACT 174.3 PG/ML (18.5-88.0)
== END ==
PROVIDERS: ATTEND Internal Medicine
DX: I50.9 Heart failure, unspecified (principal)

== ENCOUNTER → 2020-10-21 | Outpatient (REF) | payer MEDICARE, MEDICAID, OTHER ==
[~2020-10-21] MED LIST changes: -COLA100C5 PO
[2020-10-21 09:51] LABS: WHITE BLOOD COUNT 6.1 10^3/uL (4.0-10.0)
[2020-10-21 09:52] LABS: HEMATOCRIT 33.5 % (36.0-47.0); MEAN CORPUSCULAR HEMOGLOBIN 29.8 pg (27.0-33.0); MEAN CORPUSCULAR HGB CONC 29.9 g/dl (32.0-36.5); MEAN CORPUSCULAR VOLUME 99.7 fl (80.0-96.0); PLATELET COUNT, AUTOMATED 135 10^3/uL (150-450); RED BLOOD COUNT 3.36 10^6/uL (4.00-5.40)
[2020-10-21 10:22] LABS: CALCIUM LEVEL 8.3 MG/DL (8.8-10.2); CREATININE FOR GFR 1.95 MG/DL (0.55-1.30); GLOMERULAR FILTRATION RATE 26.8 (>39); POTASSIUM SERUM 4.4 MEQ/L (3.5-5.1)
== END ==
PROVIDERS: ATTEND Internal Medicine
DX: I50.9 Heart failure, unspecified (principal)

== ENCOUNTER → 2020-10-24 | Outpatient (REF) | payer MEDICARE, MEDICAID, OTHER ==
[2020-10-24 10:50] LABS: HEMATOCRIT 28.8 % (36.0-47.0); HEMOGLOBIN 8.6 g/dl (12.0-15.5); MEAN CORPUSCULAR HEMOGLOBIN 29.7 pg (27.0-33.0); MEAN CORPUSCULAR HGB CONC 29.9 g/dl (32.0-36.5); MEAN CORPUSCULAR VOLUME 99.3 fl (80.0-96.0); PLATELET COUNT, AUTOMATED 117 10^3/uL (150-450); WHITE BLOOD COUNT 5.7 10^3/uL (4.0-10.0)
[2020-10-24 11:49] LABS: CREATININE FOR GFR 2.21 MG/DL (0.55-1.30); GLOMERULAR FILTRATION RATE 23.2 (>39); POTASSIUM SERUM 4.4 MEQ/L (3.5-5.1)
== END ==
PROVIDERS: ATTEND Physician Assistant
DX: N18.9 Chronic kidney disease, unspecified (principal); I50.9 Heart failure, unspecified

== ENCOUNTER → 2020-10-29 | Outpatient (REF) | payer MEDICARE, MEDICAID, OTHER ==
[2020-10-29 12:19] LABS: MEAN CORPUSCULAR HEMOGLOBIN 29.7 pg (27.0-33.0); MEAN CORPUSCULAR HGB CONC 29.4 g/dl (32.0-36.5); MEAN CORPUSCULAR VOLUME 100.9 fl (80.0-96.0); PLATELET COUNT, AUTOMATED 131 10^3/uL (150-450); RED BLOOD COUNT 3.37 10^6/uL (4.00-5.40); WHITE BLOOD COUNT 7.3 10^3/uL (4.0-10.0)
[2020-10-29 12:49] LABS: CALCIUM LEVEL 8.7 MG/DL (8.8-10.2); CREATININE FOR GFR 1.93 MG/DL (0.55-1.30); GLOMERULAR FILTRATION RATE 27.1 (>39); POTASSIUM SERUM 4.6 MEQ/L (3.5-5.1)
== END ==
PROVIDERS: ATTEND Internal Medicine
DX: E11.9 Type 2 diabetes mellitus without complications (principal)

== ENCOUNTER → 2020-10-31 | Outpatient (REF) | payer MEDICARE, MEDICAID, OTHER ==
[~2020-10-31] MED LIST changes: +COLA100C5 PO
[2020-10-31 09:41] LABS: HEMATOCRIT 30.2 % (36.0-47.0); HEMOGLOBIN 9.1 g/dl (12.0-15.5); MEAN CORPUSCULAR HEMOGLOBIN 29.6 pg (27.0-33.0); MEAN CORPUSCULAR HGB CONC 30.1 g/dl (32.0-36.5); MEAN CORPUSCULAR VOLUME 98.4 fl (80.0-96.0); PLATELET COUNT, AUTOMATED 127 10^3/uL (150-450); RED BLOOD COUNT 3.07 10^6/uL (4.00-5.40); WHITE BLOOD COUNT 7.1 10^3/uL (4.0-10.0)
[2020-10-31 10:09] LABS: CALCIUM LEVEL 8.6 MG/DL (8.8-10.2); CREATININE FOR GFR 1.92 MG/DL (0.55-1.30); GLOMERULAR FILTRATION RATE 27.3 (>39); POTASSIUM SERUM 4.8 MEQ/L (3.5-5.1)
== END ==
PROVIDERS: ATTEND Internal Medicine
DX: N17.9 Acute kidney failure, unspecified (principal); N18.30 Chronic kidney disease, stage 3 unspecified

== ENCOUNTER → 2020-11-04 | Outpatient (REF) | payer MEDICARE, MEDICAID, OTHER ==
[2020-11-04 10:40] LABS: HEMATOCRIT 31.2 % (36.0-47.0); HEMOGLOBIN 9.5 g/dl (12.0-15.5); MEAN CORPUSCULAR HEMOGLOBIN 29.6 pg (27.0-33.0); MEAN CORPUSCULAR HGB CONC 30.4 g/dl (32.0-36.5); MEAN CORPUSCULAR VOLUME 97.2 fl (80.0-96.0); PLATELET COUNT, AUTOMATED 118 10^3/uL (150-450); RED BLOOD COUNT 3.21 10^6/uL (4.00-5.40); WHITE BLOOD COUNT 6.6 10^3/uL (4.0-10.0)
[2020-11-04 11:21] LABS: CALCIUM LEVEL 8.2 MG/DL (8.8-10.2); CREATININE FOR GFR 1.8 MG/DL (0.55-1.30); GLOMERULAR FILTRATION RATE 29.4 (>39); POTASSIUM SERUM 4.7 MEQ/L (3.5-5.1)
== END ==
PROVIDERS: ATTEND Internal Medicine
DX: I50.9 Heart failure, unspecified (principal)

== ENCOUNTER → 2020-12-02 | Outpatient (REF) | payer MEDICARE, MEDICAID, OTHER ==
[~2020-12-02] MED LIST changes: +ACET-907 PO; +ACET650T3 PO; +CHLO50TA PO; +CLOP75TA2 PO; +ELIQ2.5T PO; +FLUO-96 PO; -FLUO10CA16 PO; +FLUO10CA18 PO; -FLUO20CA20 PO; +HYDR-3715 PO; +HYDR-3910 PO; +HYDR-4571 PO; +ISOS20TA4 PO; -ISOS20TAB PO; +ONDA-84 PO; -ONDA8TAB10 PO; +POTA-151 PO; -POTA20TA6 PO; +PRED10TA2 PO; +[UNRECOGNIZED DRUG - CODE] PO
== END ==
PROVIDERS: ATTEND Physician Assistant
DX: Z01.818 Encounter for other preprocedural examination (principal)

== ENCOUNTER 2020-12-05 09:16 | Day surgery (SDC) | payer MEDICARE, MEDICAID, OTHER ==
[~2020-12-05] VITALS: Ht 162.6 cm; Wt 98.8 kg
[~2020-12-05 09:16] MED LIST changes: +LIDOCAINE 2% 100MG/5ML SDV (FOR ANES.) As Ordered ONE; +NS 1,000 ML IV ONE; +propofoL 200 MG/20 ML VIAL As Ordered ONE
[2020-12-05] MEDS ORDERED: hydrALAZINE 20MG/ML 1ML VIAL (J0360 PER 20MG) As Ordered ONE (10:47)
[2020-12-05] MEDS ORDERED: propofoL 200 MG/20 ML VIAL As Ordered ONE ×2 (10:51→11:16)
[2020-12-05] MEDS ORDERED: GLUCAGON INJ 1MG VIAL As Ordered ONE (11:07)
--- NOTE | 2020-12-05 11:40 | ROOR ---
Patient Name: Derrick Rodriguez Procedure Date: 12/05/2020 10:31 AM Date of : 1945 Age: 75 Room: [facility] Gender: Female Note Status: Finalized Procedure: Colonoscopy Indications: High risk colon cancer surveillance: Personal history of colonic polyps Providers: Domenic Sandhu MD Referring MD: Karla Dupont DO Requesting Provider: Medicines: Monitored Anesthesia Care Complications: No immediate complications. Procedure: Pre-Anesthesia Assessment: - Prior to the procedure, a History and Physical was performed, and patient medications and allergies were reviewed. The patient is competent. The risks and benefits of the procedure and the sedation options and risks were discussed with the patient. All questions were answered and informed consent was obtained. Patient identification and proposed procedure were verified by the physician, the nurse and the anesthesiologist in the procedure room. Mental Status Examination: alert and oriented. Airway Examination: normal oropharyngeal airway and neck mobility. Respiratory Examination: clear to auscultation. CV Examination: normal. Prophylactic Antibiotics: The patient does not require prophylactic antibiotics. Prior Anticoagulants: The patient has taken Plavix (clopidogrel), last dose was 5 days prior to procedure. ASA Grade Assessment: III - A patient with severe systemic disease. After reviewing the risks and benefits, the patient was deemed in satisfactory condition to undergo the procedure. The anesthesia plan was to use monitored anesthesia care (MAC). Immediately prior to administration of medications, the patient was re-assessed for adequacy to receive sedatives. The heart rate, respiratory rate, oxygen saturations, blood pressure, adequacy of pulmonary ventilation, and response to care were monitored throughout the procedure. The physical status of the patient was re-assessed after the procedure. The Colonoscope was introduced through the anus and advanced to the terminal ileum, with identification of the appendiceal orifice and IC valve. The colonoscopy was performed without difficulty. The patient tolerated the procedure well. The quality of the bowel preparation was good. The terminal ileum, ileocecal valve, appendiceal orifice, and rectum were photographed. Scope insertion time was 2 minutes. Scope withdrawal time was 10 minutes. The total duration of the procedure was 16 minutes. Findings: The perianal and digital rectal examinations were normal. A 10 mm polyp was found in the cecum. The polyp was sessile. The polyp was removed with a hot snare. Resection and retrieval were complete. Verification of patient identification for the specimen was done by the physician and nurse using the patient's name, date and medical record number. Estimated blood loss was minimal. A foreign body was found in the ascending colon. Biopsies were taken with a cold forceps for histology. Multiple small and large-mouthed diverticula were found from sigmoid to descending colon. There was no evidence of diverticular bleeding. Non-bleeding external and internal hemorrhoids were found during retroflexion. The hemorrhoids were large. A diffuse area of mild melanosis was found from sigmoid to cecum. Impression: - One 10 mm polyp in the cecum, removed with a hot snare. Resected and retrieved. - Foreign body in the ascending colon. - Moderate diverticulosis from sigmoid to descending colon. There was no evidence of diverticular bleeding. - Non-bleeding external and internal hemorrhoids. - Melanosis in the colon. Recommendation: - Patient has a contact number available for emergencies. The signs and symptoms of potential delayed complications were discussed with the patient. Return to normal activities tomorrow. Written discharge instructions were provided to the patient. - High fiber diet. - Continue present medications. - Resume Plavix (clopidogrel) at prior dose tomorrow. Refer to primary physician for further adjustment of therapy. - Await pathology results. - Repeat colonoscopy date to be determined after pending pathology results are reviewed for surveillance based on pathology results and depending on clinical and functional status. - Telephone GI clinic for pathology results in 2 weeks. - Return to primary care physician. Procedure Code(s): --- Professional --- 01401, Colonoscopy, flexible; with removal of tumor(s), polyp(s), or other lesion(s) by snare technique 23545, 59, Colonoscopy, flexible; with biopsy, single or multiple Diagnosis Code(s): --- Professional --- Z86.010, Personal history of colonic polyps K63.5, Polyp of colon T18.4XXA, Foreign body in colon, initial encounter K64.8, Other hemorrhoids K63.89, Other specified diseases of intestine K57.30, Diverticulosis of large intestine without perforation or abscess without bleeding CPT copyright 2019 [employer]. All rights reserved. The codes documented in this report are preliminary and upon stevedore hold review may be revised to meet current compliance requirements. Domenic Sandhu MD Domenic Sandhu MD 12/05/2020 11:39:47 AM Electronically signed by Domenic Sandhu MD Number of Addenda: 0 Note Initiated On: 12/05/2020 10:31 AM Estimated Blood Loss: Estimated blood loss was minimal.
[2020-12-05 11:50] VITALS: BP 141/63
== END 2020-12-05 15:05 | disposition home or self-care (01) ==
LOC: M OPP 09:16
PROVIDERS: ATTEND Internal Medicine Gastroenterology
DX: Z12.11 Encounter for screening for malignant neoplasm of colon (principal); Z86.010 Personal history of colon polyps; K63.5 Polyp of colon; K63.89 Other specified diseases of intestine; K57.30 Diverticulosis of large intestine without perforation or abscess without bleeding; K64.8 Other hemorrhoids; T18.4XXA Foreign body in colon, initial encounter; Z79.82 Long term (current) use of aspirin; Z79.899 Other long term (current) drug therapy; Z91.011 Allergy to milk products; Z91.048 Other nonmedicinal substance allergy status; Z91.040 Latex allergy status; Y99.8 Other external cause status; Y92.89 Other specified places as the place of occurrence of the external cause
CPT/HCPCS: 45380; 45385; 88305; J0360; J1610

== ENCOUNTER → 2020-12-05 | Outpatient (REF) | payer MEDICARE, MEDICAID, OTHER ==
[~2020-12-05] MED LIST changes: -ACET-907 PO; -ACET650T3 PO; -CHLO50TA PO; -CLOP75TA2 PO; -ELIQ2.5T PO; -FLUO-96 PO; +FLUO10CA16 PO; -FLUO10CA18 PO; +FLUO20CA20 PO; -HYDR-3715 PO; -HYDR-3910 PO; -HYDR-4571 PO; -ISOS20TA4 PO; +ISOS20TAB PO; -ONDA-84 PO; +ONDA8TAB10 PO; -POTA-151 PO; +POTA20TA6 PO; -PRED10TA2 PO; -[UNRECOGNIZED DRUG - CODE] PO
[2020-12-05 11:17] LABS: HEMATOCRIT 36.6 % (36.0-47.0); HEMOGLOBIN 11.5 g/dl (12.0-15.5); MEAN CORPUSCULAR HGB CONC 31.4 g/dl (32.0-36.5); MEAN CORPUSCULAR VOLUME 92.4 fl (80.0-96.0); PLATELET COUNT, AUTOMATED 131 10^3/uL (150-450); RED BLOOD COUNT 3.96 10^6/uL (4.00-5.40); WHITE BLOOD COUNT 9.5 10^3/uL (4.0-10.0)
[2020-12-05 11:44] LABS: CALCIUM LEVEL 8.3 MG/DL (8.8-10.2); CREATININE FOR GFR 1.34 MG/DL (0.55-1.30); GLOMERULAR FILTRATION RATE 41.3 (>39); POTASSIUM SERUM 2.9 MEQ/L (3.5-5.1)
== END ==
PROVIDERS: ATTEND Internal Medicine
DX: E87.6 Hypokalemia (principal); N18.30 Chronic kidney disease, stage 3 unspecified

== ENCOUNTER → 2020-12-06 | Outpatient (REF) | payer MEDICARE, MEDICAID, OTHER ==
[~2020-12-06] MED LIST changes: -LIDOCAINE 2% 100MG/5ML SDV (FOR ANES.) As Ordered ONE; -NS 1,000 ML IV ONE; -propofoL 200 MG/20 ML VIAL As Ordered ONE
[2020-12-06 11:03] LABS: CALCIUM LEVEL 7.7 MG/DL (8.8-10.2); CREATININE FOR GFR 1.75 MG/DL (0.55-1.30); GLOMERULAR FILTRATION RATE 30.3 (>39); POTASSIUM SERUM 3.9 MEQ/L (3.5-5.1)
== END ==
PROVIDERS: ATTEND Internal Medicine
DX: E87.6 Hypokalemia (principal)

== ENCOUNTER → 2021-01-06 | Outpatient (REF) | payer MEDICARE, MEDICAID, OTHER ==
[2021-01-06 10:46] LABS: HEMOGLOBIN 10.6 g/dl (12.0-15.5); MEAN CORPUSCULAR HEMOGLOBIN 29.6 pg (27.0-33.0); MEAN CORPUSCULAR HGB CONC 31.2 g/dl (32.0-36.5); PLATELET COUNT, AUTOMATED 138 10^3/uL (150-450); RED BLOOD COUNT 3.58 10^6/uL (4.00-5.40); WHITE BLOOD COUNT 8.1 10^3/uL (4.0-10.0)
[2021-01-06 11:30] LABS: CALCIUM LEVEL 8.5 MG/DL (8.8-10.2); CREATININE FOR GFR 2.43 MG/DL (0.55-1.30); GLOMERULAR FILTRATION RATE 20.8 (>39); POTASSIUM SERUM 5.5 MEQ/L (3.5-5.1)
== END ==
PROVIDERS: ATTEND Physician Assistant
DX: I50.9 Heart failure, unspecified (principal)

== ENCOUNTER → 2021-01-07 | Outpatient (REF) | payer MEDICARE, MEDICAID, OTHER ==
[2021-01-07 11:04] LABS: CALCIUM LEVEL 8.7 MG/DL (8.8-10.2); CREATININE FOR GFR 2.1 MG/DL (0.55-1.30); GLOMERULAR FILTRATION RATE 24.6 (>39); POTASSIUM SERUM 5.7 MEQ/L (3.5-5.1)
== END ==
PROVIDERS: ATTEND Internal Medicine
DX: I50.9 Heart failure, unspecified (principal)

== ENCOUNTER → 2021-01-08 | Outpatient (REF) | payer MEDICARE, MEDICAID, OTHER ==
[2021-01-08 12:18] LABS: CREATININE FOR GFR 1.88 MG/DL (0.55-1.30); GLOMERULAR FILTRATION RATE 27.9 (>39); POTASSIUM SERUM 5.2 MEQ/L (3.5-5.1)
== END ==
PROVIDERS: ATTEND Internal Medicine
DX: E87.5 Hyperkalemia (principal)

== ENCOUNTER → 2021-01-09 | Outpatient (REF) | payer MEDICARE, MEDICAID, OTHER ==
[2021-01-09 10:50] LABS: CALCIUM LEVEL 8.4 MG/DL (8.8-10.2); CREATININE FOR GFR 1.6 MG/DL (0.55-1.30); GLOMERULAR FILTRATION RATE 33.6 (>39); POTASSIUM SERUM 5.5 MEQ/L (3.5-5.1)
== END ==
PROVIDERS: ATTEND Physician Assistant
DX: I50.9 Heart failure, unspecified (principal)

== ENCOUNTER → 2021-01-10 | Outpatient (REF) | payer MEDICARE, MEDICAID, OTHER | PROVIDERS: ATTEND Internal Medicine | DX: Z53.8 Procedure and treatment not carried out for other reasons (principal) ==

== ENCOUNTER → 2021-01-10 | Outpatient (REF) | payer MEDICARE, MEDICAID, OTHER ==
[2021-01-10 11:26] LABS: BASO # 0.1 10^3/uL (0.0-0.2); BASO % 0.8 % (0.0-1.0); EOS # 0.3 10^3/uL (0.0-0.5); EOS % 3.1 % (0.0-3.0); HEMATOCRIT 31.4 % (36.0-47.0); HEMOGLOBIN 9.7 g/dl (12.0-15.5); LYMPH # 1.4 10^3/uL (1.5-5.0); LYMPH % 16.7 % (24.0-44.0); MEAN CORPUSCULAR HEMOGLOBIN 29.1 pg (27.0-33.0); MEAN CORPUSCULAR HGB CONC 30.9 g/dl (32.0-36.5); MEAN CORPUSCULAR VOLUME 94.3 fl (80.0-96.0); MONO # 0.7 10^3/uL (0.0-0.8); MONO % 8.7 % (2.0-8.0); NEUTROPHILS # 5.9 10^3/uL (1.5-8.5); PLATELET COUNT, AUTOMATED 140 10^3/uL (150-450); RED BLOOD COUNT 3.33 10^6/uL (4.00-5.40); WHITE BLOOD COUNT 8.4 10^3/uL (4.0-10.0)
[2021-01-10 12:20] LABS: ALBUMIN 2.2 GM/DL (3.2-5.2); CALCIUM LEVEL 8.1 MG/DL (8.8-10.2); CHOLESTEROL RISK RATIO 2.153 (<5); CREATININE FOR GFR 1.74 MG/DL (0.55-1.30); GLOMERULAR FILTRATION RATE 30.5 (>39); PERCENT SATURATION 24.7 % (13.2-45.0); PHOSPHORUS LEVEL 3.4 MG/DL (2.5-4.9); POTASSIUM SERUM 4.9 MEQ/L (3.5-5.1); PTH INTACT 134.4 PG/ML (18.5-88.0)
[2021-01-10 16:48] LABS: APPEARANCE, URINE TURBID (CLEAR); BILIRUBIN, URINE AUTO NEGATIVE (NEGATIVE); BLOOD, URINE BLOOD 1+ (NEGATIVE); COLOR, URINE YELLOW (YELLOW); GLUCOSE, URINE (UA) AUTO NEGATIVE (NEGATIVE); KETONE, URINE AUTO NEGATIVE (NEGATIVE); LEUKOCYTE ESTERASE, URINE AUTO 3+ (NEGATIVE); NITRITE, URINE AUTO NEGATIVE (NEGATIVE); PROTEIN, URINE AUTO 2+ mg/dL (NEGATIVE); SPECIFIC GRAVITY URINE AUTO 1.011 (1.002-1.035); UROBILINOGEN, URINE AUTO 0.2 mg/dL (0.0-2.0)
[2021-01-10 16:57] LABS: BACTERIA, URINE AUTO 3+ (NEGATIVE); RBC, URINE AUTO 15 /HPF (0-3); RENAL EPITHELIAL CELLS 2 /HPF; SQUAMOUS EPITHELIAL CELL UR AU 4 /HPF (0-6); WBC, URINE AUTO TNTC /HPF (0-3)
== END ==
PROVIDERS: ATTEND Physician Assistant
DX: N18.9 Chronic kidney disease, unspecified (principal); I50.9 Heart failure, unspecified

== ENCOUNTER → 2021-01-15 | Outpatient (REF) | payer MEDICARE, MEDICAID, OTHER ==
[2021-01-15 11:13] LABS: CALCIUM LEVEL 8.4 MG/DL (8.8-10.2); CREATININE FOR GFR 1.63 MG/DL (0.55-1.30); GLOMERULAR FILTRATION RATE 32.9 (>39); POTASSIUM SERUM 4.6 MEQ/L (3.5-5.1)
== END ==
PROVIDERS: ATTEND Internal Medicine
DX: I50.9 Heart failure, unspecified (principal)

== ENCOUNTER → 2021-01-24 | Outpatient (CLI) | payer MEDICARE, MEDICAID, OTHER ==
--- NOTE | 2021-01-24 09:30 | REP ---
INDICATION: LATERAL RIB PAIN. COMPARISON: Comparison portable chest x-ray August 19, 2020. TECHNIQUE: Two views.. FINDINGS: Moderate cardiomegaly is observed. Pulmonary vascular cephalization is seen. There is no evidence of pleural effusion or pulmonary edema. No infiltrate is seen. Minimal linear fibrosis is noted in the left base. There is no evidence of pneumothorax. The aorta is calcific and slightly tortuous. IMPRESSION: Cardiomegaly and pulmonary vascular cephalization. <Electronically signed by Wil Madsen > 01/24/21 0981
--- NOTE | 2021-01-24 09:34 | REP ---
INDICATION: LATERAL RIB PAIN. COMPARISON: Comparison is made with today's chest x-ray. TECHNIQUE: Five views of the right rib cage are provided. FINDINGS: Five views of the right rib cage demonstrate a subtle deformity of the anterior ends of the right 7th and 8th ribs consistent with fractures. On 1 oblique view there is subtle irregularity of the cortex of the adjacent 6th rib in there is slight soft tissue subpleural swelling. The 6th rib fracture may be acute. The 7th and 8th rib deformities appear to be chronic and are visible on August 11, [address] images in retrospect.. IMPRESSION: Possible acute rib fracture anterolateral 6th rib on the right. Old fracture deformities anterolateral 7th and 8th ribs. Otherwise negative. <Electronically signed by Wil Madsen > 01/24/21 0928
== END ==
LOC: M RAD 09:00
PROVIDERS: ATTEND Physician Assistant
DX: Z87.81 Personal history of (healed) traumatic fracture (principal); I51.7 Cardiomegaly; R91.8 Other nonspecific abnormal finding of lung field; R07.81 Pleurodynia; R06.00 Dyspnea, unspecified

== ENCOUNTER → 2021-01-27 | Outpatient (REF) | payer MEDICARE, MEDICAID, OTHER ==
--- NOTE | 2021-01-27 15:25 | REP ---
INDICATION: CHF RECHECK COMPARISON: 01/24/2021 TECHNIQUE: Portable AP view of the chest FINDINGS: Cardiomegaly and diffusely increased interstitial and pulmonary vascular markings again noted and consistent with a history of CHF/pulmonary vascular congestion. Superimposed left lower lobe atelectasis is now identified. No definite effusion. No pneumothorax. Skeletal structures intact.. IMPRESSION: Continued evidence to suggest pulmonary vascular congestion/CHF with left basilar atelectasis. <Electronically signed by Champ Levi > 01/27/21 [id number]
== END ==
PROVIDERS: ATTEND Internal Medicine
DX: I50.9 Heart failure, unspecified (principal); J98.11 Atelectasis

== ENCOUNTER → 2021-01-30 | Outpatient (REF) | payer MEDICARE, MEDICAID, OTHER ==
[2021-01-30 11:44] LABS: HEMATOCRIT 28.5 % (36.0-47.0); HEMOGLOBIN 8.6 g/dl (12.0-15.5); MEAN CORPUSCULAR HEMOGLOBIN 29.1 pg (27.0-33.0); MEAN CORPUSCULAR HGB CONC 30.2 g/dl (32.0-36.5); MEAN CORPUSCULAR VOLUME 96.3 fl (80.0-96.0); PLATELET COUNT, AUTOMATED 160 10^3/uL (150-450); RED BLOOD COUNT 2.96 10^6/uL (4.00-5.40); WHITE BLOOD COUNT 6.9 10^3/uL (4.0-10.0)
[2021-01-30 12:51] LABS: CALCIUM LEVEL 8.2 MG/DL (8.8-10.2); CREATININE FOR GFR 1.85 MG/DL (0.55-1.30); GLOMERULAR FILTRATION RATE 28.4 (>39); POTASSIUM SERUM 4.9 MEQ/L (3.5-5.1)
== END ==
PROVIDERS: ATTEND Internal Medicine
DX: I50.9 Heart failure, unspecified (principal)

== ENCOUNTER → 2021-02-13 | Outpatient (CLI) | payer MEDICARE, MEDICAID, OTHER ==
--- NOTE | 2021-02-13 15:49 | REP ---
INDICATION: LEFT RIB PAIN. COMPARISON: The frontal view the chest has been compared to 01/27/2021 TECHNIQUE: Four views of the left ribs. FINDINGS: There is focal enlargement of the left 10th rib there is focal enlargement of the anterior ends of the 7th through 9th ribs there is no evidence of an acute fracture. The accompanying frontal view the chest is unchanged from the prior exam. There is global cardiomegaly and evidence of interstitial fibrosis. IMPRESSION: 1. Left rib abnormalities as described above likely representing old healed fractures. This should be correlated clinically. If a rib lesion other than an old fracture is of clinical concern then a bone scan would be in order. 2. Lung field findings as described above. <Electronically signed by Arvind Milligan > 02/13/21 1734
== END ==
LOC: M RAD 14:13
PROVIDERS: ATTEND Internal Medicine
DX: R07.81 Pleurodynia (principal); I51.7 Cardiomegaly

== ENCOUNTER → 2021-02-17 | Outpatient (REF) | payer MEDICARE, MEDICAID, OTHER ==
[~2021-02-17] MED LIST changes: +HYDR-3910 PO
[2021-02-17 10:14] LABS: BASO # 0.1 10^3/uL (0.0-0.2); BASO % 0.8 % (0.0-1.0); EOS # 0.3 10^3/uL (0.0-0.5); EOS % 3.5 % (0.0-3.0); HEMATOCRIT 31.7 % (36.0-47.0); HEMOGLOBIN 9.5 g/dl (12.0-15.5); MEAN CORPUSCULAR HEMOGLOBIN 29.2 pg (27.0-33.0); MEAN CORPUSCULAR VOLUME 97.5 fl (80.0-96.0); MONO # 0.6 10^3/uL (0.0-0.8); MONO % 7.1 % (2.0-8.0); NEUTROPHILS # 5.9 10^3/uL (1.5-8.5); NEUTROPHILS % 75.3 % (36.0-66.0); PLATELET COUNT, AUTOMATED 153 10^3/uL (150-450); RED BLOOD COUNT 3.25 10^6/uL (4.00-5.40); WHITE BLOOD COUNT 7.8 10^3/uL (4.0-10.0)
[2021-02-17 10:56] LABS: HEMOGLOBIN A1c 6.9 %
[2021-02-17 11:10] LABS: ALBUMIN 2.3 GM/DL (3.2-5.2); CREATININE FOR GFR 2.04 MG/DL (0.55-1.30); GLOMERULAR FILTRATION RATE 25.4 (>39); MAGNESIUM LEVEL 2.1 MG/DL (1.8-2.4); PHOSPHORUS LEVEL 3.5 MG/DL (2.5-4.9); POTASSIUM SERUM 4.5 MEQ/L (3.5-5.1); PTH INTACT 165.6 PG/ML (18.5-88.0); THYROID STIMULATING HORMONE 1.02 uIU/ML (0.358-3.740)
== END ==
PROVIDERS: ATTEND Internal Medicine
DX: N18.9 Chronic kidney disease, unspecified (principal); Z79.899 Other long term (current) drug therapy

== ENCOUNTER → 2021-02-20 | Outpatient (REF) | payer MEDICARE, MEDICAID, OTHER ==
[2021-02-20 10:32] LABS: CALCIUM LEVEL 8.3 MG/DL (8.8-10.2); CREATININE FOR GFR 2.22 MG/DL (0.55-1.30); GLOMERULAR FILTRATION RATE 23.1 (>39); POTASSIUM SERUM 4.8 MEQ/L (3.5-5.1)
== END ==
PROVIDERS: ATTEND Internal Medicine
DX: N18.9 Chronic kidney disease, unspecified (principal)

== ENCOUNTER → 2021-02-21 | Outpatient (REF) | payer MEDICARE, MEDICAID, OTHER ==
[2021-02-21 09:24] LABS: CALCIUM LEVEL 8.1 MG/DL (8.8-10.2); CREATININE FOR GFR 1.95 MG/DL (0.55-1.30); GLOMERULAR FILTRATION RATE 26.8 (>39); POTASSIUM SERUM 4.7 MEQ/L (3.5-5.1)
[2021-02-21 13:44] LABS: PERCENT SATURATION 18.8 % (13.2-45.0)
== END ==
PROVIDERS: ATTEND Internal Medicine
DX: N18.9 Chronic kidney disease, unspecified (principal); I50.9 Heart failure, unspecified

== ENCOUNTER 2021-02-23 15:22 | Inpatient (IN) | payer MEDICARE, MEDICAID, OTHER ==
[~2021-02-23] VITALS: Ht 157.5 cm; Wt 99.0 kg
[~2021-02-23 15:22] MED LIST changes: -HYDR-3910 PO
--- OUTSIDE RECORDS SUMMARY | 2021-02-23 15:27 | CCD | Continuity of Care Document ---
Author Author Derrick HERNANDEZ Organization Unknown Address [address] [facility], [address] [place] [address] Phone [phone] Care Team Providers Care Dental Cream Maker Name Role Phone Karla Dupont D.O. AUTM [phone] Central Scheduling AUTM [phone] Sdio AUTM [phone] Problems Active Problems Provider Date Essential hypertension Domenic Hernandez M.D. Onset: 12/26 Social History Type Date Description Comments Sex Unknown ETOH Use Denies alcohol use Tobacco Use Start: Unknown End: Unknown Patient is a former smoker 1 PPD FOR 3 YEARS Recreational Drug Use Denies Drug Use Smoking Status Reviewed: 05/22/19 Patient is a former smoker 1 PPD FOR 3 YEARS Allergies, Adverse Reactions, Alerts Active Allergies Reaction Severity Comments Date Latex Swelling 05/09/2019 Milk Fat, Cow Sick 05/09/2019 Natural Rubber 05/09/2019 Inactive Allergies NKDA 01/13/2019 Medications Active Medications SIG Qnty Indications Ordering Provide r Date Dulcolax 5mg Tablets DR take 4 tablets together as per bowel preparation instructions. 4tabs Domenic Hernandez M.D. 11/06/2020 Clenpiq 10-3.5-12mg-GM -GM/160ML S olution follow pre-procedure instructions. start day before procedure. 320ml Domenic Hernandez M.D. 11/06/2020 Torsemide 20mg Tablets 1tab p o M/W/F Unknown Acephen 650mg Suppository use as directed q4h prn Unknown Thera-Tabs M Tablets 1tab po qd Unknown Bacid Capsules 1cap po qd Unknown Isosorbide Dinitrate 20mg Tablets 1tab po bid Unknown Protonix 40mg Tablets DR 1tab po bid Unknown Aspercreme W/Lidocaine 4% Cream use as directed tid Unknown Milk Of Magnesia 400mg/5ML Suspens ion give 30mls po prn Unknown Tylenol 325mg Tablets 2tab s po q4h prn Unknown Artificial Tears 1.4% Solution use as directed prn Unknown Fluoxetine HCL 10mg Capsules 30mg po qd Unknown Carvedilol 6.25mg Tablets 1ta b po bid Unknown Hydralazine HCL 50mg Tablets 1tab po bid Unknown Senna Plus 8.6-50mg Tablets 2tab po bid Unknown Iron 325(65Fe) mg Tablets 1ta b po qd Unknown Aspirin 81mg Tablets DR 1tab po qd Unknown Levemir Flextouch 10 0Unit/ML Solution Pen-Inject 40u subq qam, 20u subq qhs Unknown 0 Humulin N 100Unit/ML Suspension 10u subq qd Unknown Atorvastatin Calcium 40mg Tablets 1tab po qd Unknown Plavix 75mg Tablets 1tab po q d Unknown Zofran 4mg Tablets 1tab po qd Unknown Eucerin Lotion apply bid Unknown Immunizations Description No Information Available Vital Signs Date Vital Result Comment 07/26/2020 10:35am Height 60 inches 5'0" Weight 234.00 lb BMI (Body Mass Index) 45.7 kg/m2 [place] Body Weight 100 lb Weight 106.142 kg BSA (Body Surface Area) 2.00 m2 06/20/2019 9:08am BP Systolic 138 mmHg BP Diastolic 82 mmHg Height 64 inches 5'4" Weight 218.00 lb BMI (Body Mass Index) 37.4 kg/m2 [place] Body Weight 120 lb Weight 98.885 kg BSA (Body Surface Area) 2.03 m2 Results Test Acquired Date Facility Test Result H/L Range Note Laboratory test finding 12/05/2020 [facility] [address] [place] [address] [phone] Pathology Request For Service (SEE NOTE) 1 1 FINAL DIAGNOSIS Cecal polyp, polypectomy: Fragments of colonic mucosa with nonspecific inflammation and reactive/hyperplastic epithelial changes. No evidence for adenomatous changes. 12/06/2020 - 1110 CLINICAL DIAGNOSIS Colon polyp surveillance 12/05/2020 - 152 GROSS DIAGNOSIS Received in formalin labeled "cecal polyp" consists of multiple meyer fragments measuring 0.6 x 0.5 x 0.2 cm in aggregate. All in one. -SV 12/05/2020 - 152 Signed SARAH ESCOBAR MD 12/06/2020 1201 Procedures Date Code Description Status 12/05/2020 23128 Colonoscopy W/ Poly Completed 12/05/2020 69388 Colonoscopy Flexible Proximal To Splenic Flexure W/Biopsy Single/ Completed 07/26/2020 41656 Office/Outpatient Established Mo d MDM 30-39 Min Completed Medical Devices Description No Information Available Encounters Type Date Location Provider Dx Diagnosis Office Visit 07/26/2020 10:30a [facility] Domenic idaz M.D. D64.9 Anemia, unspecified K63.5 Polyp of colon K59.00 Constipation, unspecified D12.0 Benign neoplasm of cecum Assessments Date Code Description Provider 12/05/2020 Z12.11 Encounter for screening for adan gnant neoplasm of colon Domenic Hernandez M.D. 12/05/2020 Z86.010 Personal history of colonic poly ps Domenic Hernandez M.D. 12/05/2020 K63.5 Polyp of colon Domenic Hollis ala, M.D. 12/05/2020 T18.4xxA Foreign body in colon, initial e ncounter Domenic Hernandez M.D. 12/05/2020 K57.30 Diverticulosis of la rge intestine without perforation or abscess without bleeding Domenic Hernandez M.D. 12/05/2020 K63.89 Other specified diseases of inte vaishali Domenic Hernandez M.D. 12/05/2020 K64.8 Other hemorrhoids Domenic bolivar M.D. 07/26/2020 D64.9 Anemia, unspecified Domenic baum M.D. 07/26/2020 K63.5 Polyp of colon Domenic Hollis ala, M.D. 07/26/2020 K59.00 Constipation, unspecified Kain Hernandez M.D. 07/26/2020 D12.0 Benign neoplasm of cecum Oseas Hernandez M.D. Plan of Treatment 07/26/2020 - Domenic Hernandez M.D.* D64.9 Anemia, unspecified * K63.5 Polyp of colon * K59.00 Constipation, unspecified * D12.0 Benign neoplasm of cecum * * New Labs:* CBC With Differential, Ordered: 07/26/20 * Total Iron Binding Capacit, Ordered: 07/26/20 * Ferritin, Ordered: 07/26/20 * BUN & Creatinine ([facility]), Ordered: 07/26/20 * Vitamin B12 & Folate, Ordered: 07/26/20 * Erythropoietin, Ordered: 07/26/20 * Comments:* Impression:-- Constipation with some abdominal pain intermittently -- LIkely functional vs IBS- C. needs adjustment of the laxatives/ stool softners.-- Multiple large high risk colon polyps in colonoscopy in Feb 2019, s/p Repeat Colonocsopy in September 2019 -- multiple tubular adenomas - removed. -- needs surveillance Colonoscopy.-- Prior h/o persistent nausea and some dysphagia -- s/p EGD - noted gastritis, normal esophagus. Currently symptoms completely resolved after course of PPI.-- Normocytic anemia -- in past labs -- needs follow up. * Recommendations:* -- Patient is educated about the prior test results and all questions answered. -- For Constipation - to continue Senna and colace ( dose to be adjusted to colace 2-3 times daily). -- To add metamucil once daily. -- To complete the PPI course for 6 weeks and then taper off as tolerated. -- In view of prior anemia ( improving after the polyp removal) -- will need follow labs in October 2020. - -Patient to continue the iron supplementation and high fiber diet till repeat labs. -- Due to Prior multiple large colon polyps- will need surveillance colonoscopy in September 2020. The procedure, indications, risks (bleeding, perforation, infection, hypotension, respiratory depression, allergy, need for endotracheal intubation, surgery, colostomy, cardiac arrest, even ), benefits, limitations (e.g., missing a lesion), and all other alternatives (including no intervention) were explained to the patient who understood and agreed/ consented for the procedure. Will also review with family at the time of procedure. Will schedule surveillance Colonoscopy in September 2020. -- Post procedure appointment based on colonoscopy findings. -- Follow up with PMD for routine medical care and [facility]. Functional Status Description No Information Available Mental Status Description No Information Available Referrals Description No Information Available
--- OUTSIDE RECORDS SUMMARY | 2021-02-23 15:27 | CCD ---
Author Author [facility] Organization [facility] Address Unknown Phone Unavailable Care Team Providers Care Look Out Tower Fire Watcher Name Role Phone Fish, B Avery FARFAN Unavailable Unavailable Fish, [...] Fish, B Avery FARFAN Unavailable Unavailable Fish, [facility], PA-C Unavailable Unavailabl e Fish, [facility], PA-C Unavailable Unavailabl e Fish, [facility], PA-C Unavailable Unavailabl e Fish, [facility], PA-C Unavailable Unavailabl e Fish, [facility], PA-C Unavailable Unavailabl e Fish, [facility], PA-C Unavailable Unavailabl e Fish, [facility], PA-C Unavailable Unavailabl e Fish, [facility], PA-C Unavailable Unavailabl e Fish, [facility], PA-C Unavailable Unavailabl e Fish, [facility], PA-C Unavailable Unavailabl e Fish, [facility], PA-C Unavailable Unavailabl e Fish, [facility], PA-C Unavailable Unavailabl e Fish, [facility], PA-C Unavailable Unavailabl e Fish, [facility], PA-C Unavailable Unavailabl e Fish, [facility], PA-C Unavailable Unavailabl e Fish, [facility], PA-C Unavailable Unavailabl e Fish, [facility], PA-C Unavailable Unavailabl e Fish, [facility], PA-C Unavailable Unavailabl e Fish, [facility], PA-C Unavailable Unavailabl e Fish, [facility], PA-C Unavailable Unavailabl e Fish, [facility], PA-C Unavailable Unavailabl e Fish, [facility], PA-C Unavailable Unavailabl e Fish, [facility], PA-C Unavailable Unavailabl e Fish, [facility], PA-C Unavailable Unavailabl e Fish, [facility], PA-C Unavailable Unavailabl e Fish, [facility], PA-C Unavailable Unavailabl e Fish, [facility], PA-C Unavailable Unavailabl e Fish, [facility], PA-C Unavailable Unavailabl e Fish, [facility], PA-C Unavailable Unavailabl e Fish, [facility], PA-C Unavailable Unavailabl e Fish, [facility], PA-C Unavailable Unavailabl e Fish, [facility], PA-C Unavailable Unavailabl e Fish, [facility], PA-C Unavailable Unavailabl e Fish, [facility], PA-C Unavailable Unavailabl e Fish, [facility], PA-C Unavailable Unavailabl e Fish, [facility], PA-C Unavailable Unavailabl e Kourtney, N Pramod WIRE STITCHER Unavailable Unavailable Kourtney, N Pramod WIRE STITCHER Unavailable Unavailable Kourtney, N Pramod WIRE STITCHER Unavailable Unavailable Kourtney, N Pramod WIRE STITCHER Unavailable Unavailable Gambell, N Pramod WIRE STITCHER Unavailable Unavailable Kourtney, N Pramod WIRE STITCHER Unavailable Unavailable Kourtney, N Pramod WIRE STITCHER Unavailable Unavailable Gambell, N Pramod WIRE STITCHER Unavailable Unavailable Kourtney, N Pramod WIRE STITCHER Unavailable Unavailable Kourtney, N Pramod WIRE STITCHER Unavailable Unavailable Kourtney, N Pramod WIRE STITCHER Unavailable Unavailable Gambell, N Pramod WIRE STITCHER Unavailable Unavailable Gambell, N Pramod WIRE STITCHER Unavailable Unavailable Kourtney, N Pramod WIRE STITCHER Unavailable Unavailable Kourtney, N Pramod WIRE STITCHER Unavailable Unavailable Kourtney, N Pramod WIRE STITCHER Unavailable Unavailable Gambell, N Pramod WIRE STITCHER Unavailable Unavailable Gambell, N Pramod WIRE STITCHER Unavailable Unavailable Gambell, N Pramod WIRE STITCHER Unavailable Unavailable Gambell, N Prmaod WIRE STITCHER Unavailable Unavailable Kourtney, N Pramod WIRE STITCHER Unavailable Unavailable Kourtney, N Pramod WIRE STITCHER Unavailable Unavailable Kourtney, N Pramod WIRE STITCHER Unavailable Unavailable Kourtney, N Pramod WIRE STITCHER Unavailable Unavailable Kourtney, N Pramod WIRE STITCHER Unavailable Unavailable Gambell, N Pramod WIRE STITCHER Unavailable Unavailable Kourtney, N Pramod WIRE STITCHER Unavailable Unavailable Kourtney, N Pramod WIRE STITCHER Unavailable Unavailable Kourtney, N Pramod WIRE STITCHER Unavailable Unavailable Gambell, N Pramod WIRE STITCHER Unavailable Unavailable Kourtney, N Pramod WIRE STITCHER Unavailable Unavailable Gambell, N Pramod WIRE STITCHER Unavailable Unavailable Kourtney, N Pramod WIRE STITCHER Unavailable Unavailable Ela HERNANDEZ MD Unavailable Unavailable Ela HERNANDEZ MD Unavailable Unavailable Ela HERNANDEZ MD Unavailable Unavailable Ela EHRNANDEZ MD Unavailable Unavailable Ela HERNANDEZ MD Unavailable Unavailable Ela HERNANDEZ MD Unavailable Unavailable Ela HERNANDEZ MD Unavailable Unavailable Ela HERNANDEZ MD Unavailable Unavailable Ela HERNANDEZ MD Unavailable Unavailable Ela HERNANDEZ MD Unavailable Unavailable Ela HERNANDEZ MD Unavailable Unavailable Ela HERNANDEZ MD Unavailable Unavailable Ela HERNANDEZ MD Unavailable Unavailable Ela HERNANDEZ MD Unavailable Unavailable Ela HERNANDEZ MD Unavailable Unavailable Ela HERNANDEZ MD Unavailable Unavailable Ela HERNANDEZ MD Unavailable Unavailable Ela HERNANDEZ MD Unavailable Unavailable Ela HERNANDEZ MD Unavailable Unavailable Ela HERNANDEZ MD Unavailable Unavailable Ela HERNANDEZ MD Unavailable Unavailable Ela HERNANDEZ MD Unavailable Unavailable Ela HERNANDEZ MD Unavailable Unavailable Ela HERNANDEZ MD Unavailable Unavailable Ela HERNANDEZ MD Unavailable Unavailable Ela HERNANDEZ MD Unavailable Unavailable Ela HERNANDEZ MD Unavailable Unavailable Ela HERNANDEZ MD Unavailable Unavailable Ela HERNANDEZ MD Unavailable Unavailable Ela HERNANDEZ MD Unavailable Unavailable Ela HERNANDEZ MD Unavailable Unavailable Ela HERNANDEZ MD Unavailable Unavailable Ela HERNANDEZ MD Unavailable Unavailable Re-disclosure Warning The records that [...] is protected by Article 27-F of the [facility] Public Health law. If you continue you may have access to information: Regarding HIV / AIDS; Provided by facilities licensed or operated by the [facility] Office of Mental Health; or Provided by the [facility] Office for People With Developmental Disabilities. If such information is present, then the following [facility] mandated warning applies: This information has been [...] law may result in a fine or fdc sentence or both. A general authorization for the release of medical or other information is NOT sufficient authorization for further disc losure. Encounters Encounter Providers Location Date Indications Data Source(s ) Outpatient Attender: TATO Thornton/Imelda/Guero montelongo/Nicko 07/26/2020 10:30:00 AM EDT [facility] ([facility]) OFFICE OUTPATIENT VISIT 15 MINUTES Attender: Avery Butcher MD Phys ical Therapy 07/09/2020 01:00:00 PM EDT [facility] ([facility]) OFFICE OUTPATIENT VISIT 15 MINUTES Attender: Ellie KELLEY PA-C Physical Therapy 07/02/2020 09:30:00 AM EST [facility] ([facility]) TeleMedicine Est. Pt. Level 4 [address] [place] [address] 06/04/2020 12:00:00 AM EST eCW1 ([facility]) Outpatient Attender: Pramod RIZVIP.DARIA-SJP.DARIA 021 12:00:00 AM EST - 05/27/2020 11:30:15 AM EST [facility] TeleMedicine Phone E/M by Phys 21-30 Min [address] [place] [address] 05/21/2020 12:00:00 AM EST eCW1 ([facility]) Unknown [address] [facility] [address] 05/21/2020 12:00:00 AM EST eCW1 ([facility]) Outpatient Attender: Avery Butcher MD Physical Therapy 05/09/2020 0 3:09:00 PM EST [facility] ([facility]) Immunizations Vaccine Date Status Description Data Source(s) COVID-19 VACCINE Pfizer 05/20/2020 12:00:00 AM EST completed [facility] Vaccine Series Complete: YESThis Data wa s Submitted to [facility] [employer] COVID-19 VACCINE Pfizer 04/29/2020 12:00:00 AM EST completed [facility] Vaccine Series Complete: NOThis Data was Submitted to [facility] [employer] Medications Medication Brand Name Start Date Product Form Dose Route Admi nistrative Instructions Pharmacy Instructions Status Indications Reaction Description Data Source(s) 20 mEq 12/05/2020 12:00:00 AM EDT tablet,ER particles/cry stals 12 TAKE 2 TABS(40MEQ) BY MOUTH NOW AND REPEAT IN 2 HOURS THEN START 1 TABLET BY MOUTH EVERY MORNING TAKE 2 TABS(40MEQ) BY MOUTH NOW AND REPE AT IN 2 HOURS THEN START 1 TABLET BY MOUTH EVERY MORNING SOLD: 12/05/2020 [facility] Clenpiq Clenpiq 11/06/2020 12:00:00 AM EDT active [facility] ([facility]) Bisacodyl 5 MG Delayed Release Oral Tablet [Dulcolax] Dulcol ax 11/06/2020 12:00:00 AM EDT active M Y[facility]ONNE ([facility] ) 100 unit/mL (3 mL) 04/06/2020 12:00:00 AM EST insulin pen 3 INJECT 40UNITS UNDER THE SKIN IN THE MORNING INJECT 40UNITS UNDER THE SKIN IN THE MORNING SOLD: 04/06/2020 [facility] 3 ML Insulin Lispro 100 UNT/ML Pen Injec tor [Humalog] HUMALOG KWIKPEN 100 UNIT/ML SOPN HUMALOG KWIKPEN 100 UNIT/ML SOPN 03/23/2020 12:00:00 AM EST active [facility] Spironolactone 25 MG Oral Tablet spironolactone (ALDAC TONE) 25 MG tablet spironolactone (ALDACTONE) 25 MG tablet 03/14/2020 12:00:00 AM EST active [facility] pantoprazole 40 MG Delayed Release Oral Tablet pantoprazole (PROTONIX) 40 MG tablet pantoprazole (PROTONIX) 40 MG tablet 03/10/2020 12:00:00 AM EST active [facility] pantoprazole 40 MG Delayed Release Oral Tablet PANTOPRAZOLE SODIUM 03/10/2020 12:00:00 AM EST tablet,delayed release (DR/EC) 1 T CAYET[place]O ONE TABLET BY MOUTH TWICE A DAY TAKE ONE TABLET BY MOUTH TWICE A DAY SOLD: 03/10/2020 [facility] clopidogrel 75 MG Oral Tablet clopidogrel (PLAVIX) 75 MG tablet clopidogrel (PLAVIX) 75 MG tablet 03/08/2020 12:00:00 AM EST a ctive [facility] atorvastatin 40 MG Oral Tablet atorvastatin (LIPITOR) 40 MG tablet atorvastatin (LIPITOR) 40 MG tablet 03/08/2020 12:00:00 AM EST active [facility] Fluoxetine 10 MG Oral Capsule FLUoxetine (PROZAC) 10 M G capsule FLUoxetine (PROZAC) 10 MG capsule 03/08/2020 12:00:00 AM EST 30 mg active 30 mg [facility] Hydralazine Hydrochloride 50 MG Oral Tab let hydrALAZINE (APRESOLINE) 50 MG tablet hydrALAZINE (APRESOLINE) 50 MG tablet 03/08/2020 12:00:00 AM EST active [facility] Isosorbide Dinitrate 20 MG Oral Tablet i sosorbide dinitrate (ISORDIL) 20 MG tablet isosorbide dinitrate (ISORDIL) 20 MG tablet 03/08/2020 12:00:00 AM EST active [facility] ferrous gluconate 324 MG Oral Tablet ferrous gluconate (FERGON) 324 MG tablet ferrous gluconate (FERGON) 324 MG tablet 03/03/2020 12:00:00 AM EST active TAKE ONE TABLET BY MOUTH EVERY D AY START TODAY [facility] 324 mg (38 mg iron) 03/03/2020 12:00:00 AM EST tablet 5 TAKE ONE TABLET BY MOUTH EVERY DAY START TODAY TAKE ONE TABLET BY MOUTH EVERY DAY START TODAY SOLD: 03/03/2020 [facility] 25 mg 03/03/2020 12:00:00 AM EST tablet 5 TAKE ONE TABLET BY MOUTH EVERY DAY STARTING 03/03/2020 TAKE ONE TABLET BY MOUTH EVERY DAY STARTING 03/03/2020 SOLD: 03/03/2020 [facility] Ondansetron 4 MG Oral Tablet ondansetron (ZOFRAN) 4 MG tablet ondansetron (ZOFRAN) 4 MG tablet 03/03/2020 12:00:00 AM EST ac tive [facility] Cephalexin 500 MG Oral Capsule CEPHALEXIN 02/20/2020 12:00:00 AM EDT capsule 2 TAKE ONE CAPSULE BY MOUTH TWICE A DAY FOR 1 WEEK TAKE ONE CAPSULE BY MOUTH TWICE A DAY FOR 1 WEEK SOLD: 02/20/2020 [facility] Hydralazine Hydrochloride 100 MG Oral Ta blet hydrALAZINE (APRESOLINE) 100 MG tablet hydrALAZINE (APRESOLINE) 100 MG tablet 100 mg Oral aborted Take 100 mg by mouth 3 (three) times a day [facility] Insurance Providers Payer name Policy type / Coverage type Policy ID Covered republican ID Covered republican's relationship to martinez Policy Martinez Plan Information MEDICARE [id number] [facility] [id number] MEDICARE [id number] xxxxxxxxxxx [id number] Ghi/Beatriz [facility] (pr) Commercial [id number] Self [id number] Ghi/[facility] (pr) Commercial [id number] Self [id number] [facility] (pr) Commercial [id number] Self [id number] [facility] (pr) Commercial [id number] Self EMEDNY [id number] SP [id number] [employer] [id number] SP [id number] [facility] [id number] SP [id number] [employer] [id number] MEDICAID [id number] S [id number] MEDICARE C [id number] S [id number] N49 [facility] [id number] SP [id number] MEDICAID [id number] SP [id number] [employer] [id number] SP [id number] MEDICARE [id number] A [facility] MEDICAID [id number] SP [id number] MEDICARE [id number] SP [id number] A MEDICARE [id number] SP [id number] GHI FEDERAL [id number] SP [id number] MEDICARE [id number] SP [id number] A MEDICAID -O/P [id number] MEDICARE PART A -O/P [id number] 18 [id number] GHI [facility] -O/P [id number] 18 [id number] [facility] [id number] SP [id number] [facility] O [id number] S [id number] [facility] [id number] SP [id number] MEDICARE [id number] SP [id number] A MEDICARE - [facility] [id number] S [id number] GHI COMM CONTR [id number] S [id number] [employer] [id number] SP [id number] GHI FEDERAL [id number] [facility] [id number] SP [id number] MEDICARE [id number] SP [id number] N49 MEDICARE [id number] SP [id number] [id number] [facility] [id number] SP [id number] [facility] [id number] SP [id number] Problems, Conditions, and Diagnoses Code Display Name Description Problem Type Effective Dates Data Source(s) I10 Essential (primary) hypertension Essential (primary) h ypertension Diagnosis 05/27/2020 10:51:42 AM EST [facility] R60.0 Localized edema Localized edema Diagnosis 05/27/2020 10:5 1:42 AM EST [facility] [id number] Type 2 diabetes mellitus Type 2 diabetes mellitus Prob denzel 07/02/2020 12:00:00 AM EST [facility] ([facility] L89.620 [id number] Decubitus ulcer, heel, left, unstageable Problem 05/21/2020 12:00:00 AM EST eCW1 ([facility]) Z22.322 [id number] MRSA (methicillin resistant stap h aureus) culture positive Problem 05/21/2020 12:00:00 AM EST eCW1 ([facility]) M86.271 [id number] Subacute osteomyelitis of right foot Problem 05/21/2020 12:00:00 AM EST eCW1 ([facility]) Surgeries/Procedures Procedure Description Date Indications Data Source(s) Colonoscopy Flexible Proximal To Splenic Flexure W/Biopsy Si ngle/ 12/05/2020 12:00:00 AM EDT [facility] ([facility], ) Colonoscopy W/ Poly 12/05/2020 12:00:00 AM EDT [facility] ([facility], ) OFFICE OUTPATIENT VISIT 25 MINUTES 07/26/2020 12:00:00 AM EDT [facility] ([facility], ) INCISION & DRAINAGE ABSCESS SIMPLE/SINGLE 05/09/2020 1 2:00:00 AM EST [facility] ([facility]) Results ID Date Data Source [id number] 12/05/2020 10:59:00 AM ED[facility] Name Value Range Interpretation Code Description Data Jacqui rce(s) Supporting Document(s) Surgical pathology study Laboratory test result [facility] ([facility], ) FINAL DIAGNOSIS Cecal polyp, polypectomy: Fragments of [...] 152 Signed SARAH ESCOBAR MD 12/06/2020 1201 ID Date Data Source [id number] 12/02/2020 09:30:00 AM EDT [facility] Name Value Range Interpretation Code Description Data Jacqui rce(s) Supporting Document(s) SARS coronavirus 2 RNA [Presence] in Res piratory specimen by TIMMY with probe detection NEGATIVE [facility] This lab was ordered by [facility] a nd reported by [facility]. ID Date Data Source [id number] 09/05/2020 12:00:00 AM EDT [facility] Name Value Range Interpretation Code Description Data Jacqui rce(s) Supporting Document(s) SARS-CoV2 Rapid Antigen Negative [facility] This lab was ordered by [facility] and reported by [facility]. ID Date Data Source [id number] 08/21/2020 09:42:00 AM EDT [facility] Name Value Range Interpretation Code Description Data Jacqui rce(s) Supporting Document(s) SARS coronavirus 2 RNA [Presence] in Res piratory specimen by TIMMY with probe detection NEGATIVE [facility] This lab was ordered by [facility] a nd reported by [facility]. ID Date Data Source [id number] 08/08/2020 12:18:00 PM EDT [facility] Name Value Range Interpretation Code Description Data Jacqui rce(s) Supporting Document(s) SARS coronavirus 2 RNA [Presence] in Res piratory specimen by TIMMY with probe detection NEGATIVE [facility] This lab was ordered by [facility] a nd reported by [facility]. ID Date Data Source [id number] 08/03/2020 02:03:00 AM EDT [facility] Name Value Range Interpretation Code Description Data Jacqui rce(s) Supporting Document(s) SARS coronavirus 2 RNA [Presence] in Res piratory specimen by TIMMY with probe detection NEGATIVE [facility] This lab was ordered by [facility] a nd reported by [facility]. ID Date Data Source [id number]/02/2020 12:00:00 AM EDT [facility] Name Value Range Interpretation Code Description Data Jacqui rce(s) Supporting Document(s) SARS coronavirus 2 Ag Negative [facility] This lab was ordered by [facility] and reported by [facility]. ID Date Data Source [id number] 08/01/2020 11:00:00 AM EDT [facility] Name Value Range Interpretation Code Description Data Jacqui rce(s) Supporting Document(s) SARS-CoV-2 (COVID 19) NEGATIVE - SARS-CoV-2 (COVID19) [facility] This lab was ordered by [facility] a nd reported by [facility]. ID Date Data Source [id number] 07/26/2020 12:00:00 AM EDT [facility] Name Value Range Interpretation Code Description Data Jacqui rce(s) Supporting Document(s) SARS-CoV2 Rapid Antigen Negative [facility] This lab was ordered by [facility] and reported by [facility]. ID Date Data Source [id number] 07/03/2020 08:30:00 AM EST [facility] Name Value Range Interpretation Code Description Data Jacqui rce(s) Supporting Document(s) SARS coronavirus 2 RNA Not Detected [facility] This lab was ordered by [facility] and reported by [facility]. ID Date Data Source [id number] 06/26/2020 01:00:00 PM EST [facility] Name Value Range Interpretation Code Description Data Jacqui rce(s) Supporting Document(s) SARS coronavirus 2 RNA Not Detected [facility] [place] This lab was ordered by [facility] and reported by [facility]. ID Date Data Source [id number] 06/19/2020 12:50:00 PM EST [facility] Name Value Range Interpretation Code Description Data Jacqui rce(s) Supporting Document(s) SARS coronavirus 2 RNA Not Detected [facility] [place] This lab was ordered by [facility] and reported by [facility]. ID Date Data Source [id number] 2020 08:31:00 AM EST [facility] Name Value Range Interpretation Code Description Data Jacqui rce(s) Supporting Document(s) SARS coronavirus 2 RNA [Presence] in Res piratory specimen by TIMMY with probe detection NEGATIVE [facility] This lab was ordered by [facility] a nd reported by [facility]. ID Date Data Source [id number] 06/14/2020 10:10:00 AM EST [facility] Name Value Range Interpretation Code Description Data Jacqui rce(s) Supporting Document(s) SARS-CoV-2 (COVID 19) NEGATIVE - SARS-CoV-2 (COVID19) [facility] This lab was ordered by [facility] a nd reported by [facility]. ID Date Data Source [id number] 06/11/2020 06:42:00 PM EST [facility] Name Value Range Interpretation Code Description Data Jacqui rce(s) Supporting Document(s) SARS coronavirus 2 RNA [Presence] in Res piratory specimen by TIMMY with probe detection NEGATIVE [facility] This lab was ordered by [facility] a nd reported by [facility]. ID Date Data Source [id number] 06/11/2020 04:19:00 PM EST [facility] Name Value Range Interpretation Code Description Data Jacqui rce(s) Supporting Document(s) Appearance, Urine RFX Laboratory test result [facility] ([facility]) Color, Urine RFX Laboratory test result [facility] ([facility]) Protein, Urine Auto RFX Laboratory test result [facility]) Specific [place] Ur Auto RFX 1.013 1.002-1.035 [facility] ([facility]) PH,Urine RFX 5.0 units 5.0-9.0 [facility] ([facility]) Ketone, Urine Auto RFX Laboratory test result [facility]) Glucose, Urine (Ua) Auto RFX Laboratory test result [facility] ([facility]) Urobilinogen, Urine Auto RFX 0.2 mg/dL 0.0-2.0 [facility] ([facility]) Bilirubin, Urine Auto RFX Laboratory test result [facility]) Nitrite, Urine Auto RFX Laboratory test result [facility] ([facility]) Leukocyte Esterase Ur Auto RFX Laboratory test result [facility]) Blood, Urine Blood RFX Laboratory test result [facility] ([facility]) WBC, Urine Auto RFX 2 /HPF 0-3 [facility] RBC, Urine Auto RFX 3 /HPF 0-3 [facility] ([facility] Squam Epithelial Cell Ur Aurfx 2 /HPF 0-6 [facility] ([facility]) Bacteria, Urine Auto RFX Laboratory test result [facility] ([facility]) Hyaline Cast, Urine Auto RFX 0 /LPF 0-1 M [facility] ([facility]) ID Date Data Source [id number] 06/11/2020 02:41:00 PM EST [facility] ([facility]) Name Value Range Interpretation Code Description Data Jacqui rce(s) Supporting Document(s) Ammonia [Mass/volume] in Blood 11 uMOL/L [facility] ID Date Data Source [id number] 06/11/2020 02:41:00 PM EST [facility] ([facility]) Name Value Range Interpretation Code Description Data Jacqui rce(s) Supporting Document(s) Venous PH 7.377 units 7.330-7.[address] [facility]) Venous Partial Pressure Co2 52.1 mmHg 38.0-50.0 [facility] ([facility]) Venous Partial Pressure O2 72.1 mmHg 30.0-50.0 [facility] ([facility]) Venous Total Co2 31.5 meq/L 24.0-28.0 [facility] ([facility]) Venous Hco3 29.9 meq/L 23.0-27.0 [facility] ([facility]) Venous O2 Saturation 94.3 % 60.0-80.0 [facility] ([facility]) Venous Base Excess 3.[address] [facility]) Venous Standard Hco3 27.8 meq/L [facility] ( [facility]) ID Date Data Source [id number] 06/11/2020 02:40:00 PM EST [facility] ([facility] Name Value Range Interpretation Code Description Data Jacqui rce(s) Supporting Document(s) Osmolality of Serum or Plasma 347 MOSM/KG 280-301 [facility] Natriuretic peptide.B prohormone N-Terminal [Mass/volu me] in Serum or Plasma 1582 pg/mL [facility] ([facility] ) Thyrotropin [Units/volume] in Serum or Plasma by Detec tion limit <= 0.05 mIU/L 0.513 uIU/ML 0.358-3.[address] [facility] ID Date Data Source [id number] 06/11/2020 02:40:00 PM EST [facility] ([facility] Name Value Range Interpretation Code Description Data Jacqui rce(s) Supporting Document(s) Glucose, Fasting 285 mg/dL 70-100 [facility] ([facility]) Blood Urea Nitrogen 117 mg/dL 7-18 [facility] ([facility]) Glomerular Filtration Rate 29.6 [facility] ([facility]) <content>Units are mL/min/1.73 m2</content>
<content></content>
<content>Chronic Kidney Disease Staging per NKF:</content>
<content></content>
<content>Stage I & II GFR >=60 Normal to Mildly Decreased</content>
<content>Stage III GFR 30- 59 Moderately Decreased</content>
<content>Stage IV GFR 15-29 Severely Decreased</content>
<content>Stage V GFR <15 Very Little GFR Left</content>
<content>ESRD GFR <15 on FIRE DEPARTMENT MARINE ENGINEER</content>
<content></content> Creatinine For GFR 1.79 mg/dL 0.55-1.30 [facility] ([facility]) Potassium Serum 4.2 meq/L 3.5-5.1 [facility] ([facility]) Chloride Level 107 meq/L 98-107 [facility] ([facility]) Sodium Level 145 meq/L 136-145 [facility] ([facility]) Anion Gap 5 meq/L 8-16 [facility] Carbon Dioxide Level 33 meq/L 21-32 [facility] ([facility] Calcium Level 10.6 mg/dL 8.8-10.2 [facility] ([facility]) ID Date Data Source [id number] 06/11/2020 02:40:00 PM EST [facility] ([facility] Name Value Range Interpretation Code Description Data Jacqui rce(s) Supporting Document(s) Ast/Sgot 11 U/L 7-37 [facility] Alkaline Phosphatase 84 U/L 45-117 [facility] Alt/SGPT 28 U/L 12-78 [facility] ([facility]) Bilirubin,Total 0.2 mg/dL 0.2-1.0 [facility] ([facility]) Total Protein 5.5 GM/DL 6.4-8.2 [facility] ([facility]) Bilirubin,Direct Laboratory test result 0.0-0.2 [facility] ([facility]) Albumin 2.9 [facility]DL 3.2-5.2 [facility] Albumin/Globulin Ratio 1.1 1.2-2.2 [facility] ([facility]) ID Date Data Source [id number] 06/11/2020 02:40:00 PM EST [facility] ([facility] Name Value Range Interpretation Code Description Data Jacqui rce(s) Supporting Document(s) CK-MB Value Mass Laboratory test result [facility] ([facility]) CPK Creatine Phosphokinase 15 U/L 26-192 [facility] ([facility]) MB/CK Relative Index 6.67 [facility] ([facility] <content>DIAGNOSIS CRITERIA</content>
<content>MMB ng/ml Relative Index (RI)</content>
<content>NON-AMI < or = 5 N/A</content>
<content>LOCKETT ZONE > 5 < or = 4</content>
<content>AMI > 5 > 4</content>
<content></content> Troponin I Laboratory test [facility] <content>Troponin I Reference Interval f or Siemens [place] LOCI:</content>
<content></content>
<content>99th Percentile= 0.00-0.045 ng/ml</content>
<content></content>
<content>Risk Stratification:</content>
<content><= 0.10 ng/ml Decreased Risk for Adverse Clinical</content>
<content>Events.</content>
<content>0.10-1.50 ng/ml Increased Risk for Adverse Clinical</content>
<content>Events. Evaluation of additional</content>
<content>criterion and/or repeat testing in 2-6</content>
<content>hours is suggested to rule out myocardial</content>
<content>damage.</content>
<content>>= 1.50 ng/ml Indicative of Myocardial Injury.</content>
<content></content> ID Date Data Source [id number] 06/11/2020 02:40:00 PM EST [facility] ([facility]) Name Value Range Interpretation Code Description Data Jacqui rce(s) Supporting Document(s) Lactate [Mass/volume] in Serum or Plasma 1.3 mmol/L 0.4-2.[address] [facility]) Y/N query for Sepsis Lactate Rule: Y ID Date Data Source [id number] 06/11/2020 02:40:00 PM EST [facility] ([facility]) Name Value Range Interpretation Code Description Data Jacqui rce(s) Supporting Document(s) White Blood Count 8.8 10 4.0-10.0 [facility] ([facility]) Red Blood Count 3.59 10 4.00-5.40 [facility] ([facility]) Hemoglobin 10.6 g/dL 12.0-15.5 [facility] Hematocrit 34.4 % 36.0-47.0 [facility] Mean Corpuscular Volume 95.8 fl 80.0-96.0 [facility] ([facility]) Mean Corpuscular HGB Conc 30.8 g/dL 32.0-36.5 [facility] ([facility]) Mean Corpuscular Hemoglobin 29.5 pg 27.0-33.0 [facility] ([facility]) Platelet Count, Automated 125 10 150-450 [facility] ([facility]) Red Cell Distribution Width 15.9 % 11.5-14.5 [facility] ([facility]) Neutrophils % 71.8 % 36.0-66.0 [facility] ([facility]) [place] % 7.4 % 2.0-8.0 [facility]) Lymph % 18.5 % 24.0-44.0 [facility]) Immature Granulocyte % 0.2 % 0-3.0 [facility] ([facility]) Eos % 1.5 % 0.0-3.0 [facility]) Baso % 0.6 % 0.0-1.0 [facility]) Nucleated Red Blood Cell % 0.0 % 0-0 [facility] ([facility]) Lymph # 1.6 10 1.5-5.0 [facility]) Neutrophils # 6.3 10 1.5-8.5 [facility] ([facility]) Baso # 0.1 10 0.0-0.2 [facility]) Eos # 0.1 10 0.0-0.5 [facility]) [place] # 0.7 10 0.0-0.8 [facility]) ID Date Data Source [id number] 06/05/2020 12:00:00 PM EST [facility] Name Value Range Interpretation Code Description Data Jacqui rce(s) Supporting Document(s) SARS coronavirus 2 RNA Not Detected [facility] [place] This lab was ordered by [facility] and reported by [facility]. ID Date Data Source [id number] 05/29/2020 10:30:00 AM EST [facility] Name Value Range Interpretation Code Description Data Jacqui rce(s) Supporting Document(s) SARS coronavirus 2 RNA Not Detected [facility] [place] This lab was ordered by [facility] and reported by [facility]. ID Date Data Source [id number] 05/22/2020 09:15:00 AM EST [facility] Name Value Range Interpretation Code Description Data Jacqui rce(s) Supporting Document(s) SARS coronavirus 2 RNA Not Detected [facility] [place] This lab was ordered by [facility] and reported by [facility]. ID Date Data Source [id number] 05/15/2020 10:00:00 AM EST [facility] Name Value Range Interpretation Code Description Data Jacqui rce(s) Supporting Document(s) SARS coronavirus 2 RNA Not Detected [facility] [place] This lab was ordered by [facility] and reported by [facility]. ID Date Data Source [id number] 05/08/2020 09:52:00 AM EST [facility] Name Value Range Interpretation Code Description Data Jacqui rce(s) Supporting Document(s) SARS coronavirus 2 RNA [Presence] in Res piratory specimen by TIMMY with probe detection NEGATIVE [facility] This lab was ordered by [facility] a nd reported by [facility]. ID Date Data Source [id number] 04/30/2020 12:46:00 PM EST [facility] ([facility]) Name Value Range Interpretation Code Description Data Jacqui rce(s) Supporting Document(s) Influenza B Amplification Laboratory test result [facility] ([facility]) Negative results do not preclude influen za or RSV virus infection and should not be used as the sole basis for treatment or other patient management decisions. Influenza A Amplification Laboratory test result [facility] ([facility]) Negative results do not preclude influen za or RSV virus infection and should not be used as the sole basis for treatment or other patient management decisions. Laboratory test finding (navigational concept) Laboratory test result [facility] ([facility]) A false negative result may occur [...] pathogens. DISCLAIMER: Testing was performed using the [employer] SARS-CoV-2 test. This test was developed and its performance characteristics determined by [employer] This test has not been FDA cleared [...] sooner. RSV Amplification Laboratory test result [facility] ([facility]) Negative results do not preclude influen za or RSV virus infection and should not be used as the sole basis for treatment or other patient management decisions. ID Date Data Source [id number] 04/30/2020 12:46:00 PM EST [facility] Name Value Range Interpretation Code Description Data Jacqui rce(s) Supporting Document(s) SARS coronavirus 2 RNA [Presence] in Res piratory specimen by TIMMY with probe detection NEGATIVE [facility] This lab was ordered by [facility] a nd reported by [facility]. ID Date Data Source [id number] 04/30/2020 12:39:00 PM EST [facility] ([facility]) Name Value Range Interpretation Code Description Data Jacqui rce(s) Supporting Document(s) Red Blood Count 2.98 10 4.00-5.40 [facility] ([facility]) White Blood Count 11.1 10 4.0-10.0 [facility] ([facility]) Hematocrit 27.9 % 36.0-47.0 [facility] Mean Corpuscular Volume 93.6 fl 80.0-96.0 [facility] ([facility]) Hemoglobin 8.2 g/dL 12.0-15.5 [facility] Mean Corpuscular Hemoglobin 27.5 pg 27.0-33.0 [facility] ([facility]) Mean Corpuscular HGB Conc 29.4 g/dL 32.0-36.5 [facility] ([facility]) Neutrophils % 75.1 % 36.0-66.0 [facility] ([facility]) Red Cell Distribution Width 19.2 % 11.5-14.5 [facility] ([facility]) Platelet Count, Automated 201 10 150-450 [facility] ([facility]) [place] % 7.0 % 0.0-5.0 [facility]) Lymph % 14.7 % 24.0-44.0 [facility] [facility] Eos % 1.5 % 0.0-3.0 [facility] [facility] Immature Granulocyte % 1.2 % 0-3.0 [facility] ([facility]) Baso % 0.5 % 0.0-1.0 [facility] [facility] Neutrophils # 8.3 10 1.5-8.5 [facility] ([facility]) Lymph # 1.6 10 1.5-5.0 [facility] Nucleated Red Blood Cell % 0.0 % 0-0 [facility] ([facility]) [place] # 0.8 10 0.0-0.8 [facility]) Baso # 0.1 10 0.0-0.2 [facility] Eos # 0.2 10 0.0-0.5 [facility] ID Date Data Source [id number] 04/30/2020 12:39:00 PM EST [facility] ([facility]) Name Value Range Interpretation Code Description Data Jacqui rce(s) Supporting Document(s) Inr 1.21 [facility] ([facility]) THERAPUTIC HUMAN INR VALUES INDICATIONS NORMAL RANGES PROPHYLAXIS/TREATMENT OF: VENOUS THROMBOSIS 2.0-3.0 PULMONARY EMBOLISM 2.0-3.0 PREVENTION OF SYSTEMIC EMBOLISM FROM: TISSUE HEART VALVES 2.0-3.0 ACUTE MYOCARDIAL INFARCTION 2.0-3.0 VALVULAR HEART DISEASE 2.0-3.0 ATRIAL FIBRILLATION 2.0-3.0 MECHANICAL VALVES(HIGH RISK) 2.5-3.5 RECURRENT MYOCARDIAL INFARCTION 2.5-3.5 Prothrombin Time 15.6 s 12.5-14.3 [facility] ID Date Data Source [id number] 04/30/2020 12:39:00 PM EST [facility] ([facility]) Name Value Range Interpretation Code Description Data Jacqui rce(s) Supporting Document(s) aPTT in Blood by Coagulation assay 34.2 s 24.2-38.5 [facility] ([facility]) Lactate [Mass/volume] in Serum or Plasma 0.9 mmol/L 0.4-2.0 [facility] ([facility]) Y/N query for Sepsis Lactate Rule: Y ID Date Data Source [id number] 04/30/2020 12:39:00 PM EST [facility] ([facility]) Name Value Range Interpretation Code Description Data Jacqui rce(s) Supporting Document(s) CPK Creatine Phosphokinase 16 U/L 26-192 [facility] ([facility]) CK-MB Value Mass Laboratory test result [facility] ([facility]) MB/CK Relative Index 6.25 [facility] ([facility] <content>DIAGNOSIS CRITERIA</content>
<content>MMB ng/ml Relative Index (RI)</content>
<content>NON-AMI < or = 5 N/A</content>
<content>LOCKETT ZONE > 5 < or = 4</content>
<content>AMI > 5 > 4</content>
<content></content> Troponin I Laboratory test result [facility] ([facility]) <content>Troponin I Reference Interval f or Siemens [place] LOCI:</content>
<content></content>
<content>99th Percentile= 0.00-0.045 ng/ml</content>
<content></content>
<content>Risk Stratification:</content>
<content><= 0.10 ng/ml Decreased Risk for Adverse Clinical</content>
<content>Events.</content>
<content>0.10-1.50 ng/ml Increased Risk for Adverse Clinical</content>
<content>Events. Evaluation of additional</content>
<content>criterion and/or repeat testing in 2-6</content>
<content>hours is suggested to rule out myocardial</content>
<content>damage.</content>
<content>>= 1.50 ng/ml Indicative of Myocardial Injury.</content>
<content></content> ID Date Data Source [id number] 04/30/2020 12:39:00 PM EST [facility] ([facility]) Name Value Range Interpretation Code Description Data Jacqui rce(s) Supporting Document(s) Alt/SGPT 20 U/L 12-78 [facility] ([facility]) Ast/Sgot 9 U/L 7-37 [facility] ([facility]) Alkaline Phosphatase 80 U/L 45-117 [facility] ([facility]) Total Protein 5.8 GM/DL 6.4-8.2 [facility] ([facility]) Bilirubin,Direct Laboratory test result 0.0-0.2 [facility] ([facility]) Bilirubin,Total 0.2 mg/dL 0.2-1.0 [facility] ([facility]) Albumin/Globulin Ratio 0.4 1.2-2.2 [facility] ([facility]) Albumin 1.7 GM/DL 3.2-5.2 [facility] ([facility]) ID Date Data Source [id number] 04/30/2020 12:39:00 PM EST [facility] ([facility]) Name Value Range Interpretation Code Description Data Jacqui rce(s) Supporting Document(s) Glucose, Fasting 252 mg/dL 70-100 [facility] ([facility]) Blood Urea Nitrogen 60 mg/dL 7-18 [facility] ([facility]) Creatinine For GFR 1.61 mg/dL 0.55-1.30 [facility] ([facility]) Glomerular Filtration Rate 33.5 [facility] ([facility]) <content>Units are mL/min/1.73 m2</content>
<content></content>
<content>Chronic Kidney Disease Staging per NKF:</content>
<content></content>
<content>Stage I & II GFR >=60 Normal to Mildly Decreased</content>
<content>Stage III GFR 30- 59 Moderately Decreased</content>
<content>Stage IV GFR 15-29 Severely Decreased</content>
<content>Stage V GFR <15 Very Little GFR Left</content>
<content>ESRD GFR <15 on FIRE DEPARTMENT MARINE ENGINEER</content>
<content></content> Sodium Level 140 meq/L 136-145 [facility] ([facility]) Chloride Level 112 meq/L 98-107 [facility] ([facility]) Potassium Serum 4.7 meq/L 3.5-5.1 [facility] ([facility]) Carbon Dioxide Level 21 meq/L 21-32 [facility] ([facility]) Anion Gap 7 meq/L 8-16 [facility] Calcium Level 8.5 mg/dL 8.8-10.2 [facility] ([facility]) ID Date Data Source [id number] 04/30/2020 12:39:00 PM EST [facility] ([facility]) Name Value Range Interpretation Code Description Data Jacqui rce(s) Supporting Document(s) Amylase [Enzymatic activity/volume] in Serum or Plasma 26 U/L 25- 115 [facility] ([facility]) C reactive protein [Mass/volume] in Serum or Plasma by High sensitivity method 8.35 mg/dL 0.00-0.30 [facility] ([facility] ) ID Date Data Source [id number] 04/30/2020 12:39:00 PM EST [facility] ([facility]) Name Value Range Interpretation Code Description Data Jacqui rce(s) Supporting Document(s) Blood Type Laboratory test result [facility] ([facility]) AB Screen (Indirect Tab)Vis Laboratory test result [facility] ([facility]) ID Date Data Source [id number] 04/29/2020 09:30:00 AM EST [facility] Name Value Range Interpretation Code Description Data Jacqui rce(s) Supporting Document(s) SARS coronavirus 2 RNA Not Detected [place] This lab was ordered by [facility] and reported by [facility]. ID Date Data Source [id number] 04/23/2020 09:57:00 AM EST [facility] Name Value Range Interpretation Code Description Data Jacqui rce(s) Supporting Document(s) SARS coronavirus 2 RNA [facility] This lab was ordered by [facility] and reported by [facility]. ID Date Data Source [id number] 04/17/2020 11:00:00 AM EST [facility] Name Value Range Interpretation Code Description Data Jacqui rce(s) Supporting Document(s) SARS coronavirus 2 RNA [facility] This lab was ordered by [facility] and reported by [facility]. ID Date Data Source [id number] 04/11/2020 09:00:00 AM EST [facility] Name Value Range Interpretation Code Description Data Jacqui rce(s) Supporting Document(s) SARS coronavirus 2 RNA [facility] This lab was ordered by [facility] and reported by [facility]. ID Date Data Source [id number] 04/07/2020 01:34:00 PM EST [facility] Name Value Range Interpretation Code Description Data Jacqui rce(s) Supporting Document(s) SARS coronavirus 2 RNA [facility] This lab was ordered by [facility] and reported by [facility]. ID Date Data Source [id number] 03/27/2020 09:24:00 PM EST [facility] Name Value Range Interpretation Code Description Data Jacqui rce(s) Supporting Document(s) SARS coronavirus 2 RNA [Presence] in Res piratory specimen by TIMMY with probe detection [facility] This lab was ordered by [facility] a nd reported by [facility]. ID Date Data Source [id number] 03/27/2020 06:50:00 PM EST [facility] ([facility]) Name Value Range Interpretation Code Description Data Jacqui rce(s) Supporting Document(s) C reactive protein [Mass/volume] in Serum or Plasma by High sensitivity method 5.64 mg/dL 0.00-0.30 [facility] ([facility] ) ID Date Data Source [id number] 03/27/2020 06:50:00 PM EST [facility] ([facility]) Name Value Range Interpretation Code Description Data Jacqui rce(s) Supporting Document(s) Glucose, Fasting 268 mg/dL 70-100 [facility] ([facility]) Creatinine For GFR 1.84 mg/dL 0.55-1.30 [facility] ([facility]) Blood Urea Nitrogen 75 mg/dL 7-18 [facility] ([facility]) Sodium Level 138 meq/L 136-145 [facility] ([facility]) Glomerular Filtration Rate 28.7 [facility] ([facility]) <content>Units are mL/min/1.73 m2</content>
<content></content>
<content>Chronic Kidney Disease Staging per NKF:</content>
<content></content>
<content>Stage I & II GFR >=60 Normal to Mildly Decreased</content>
<content>Stage III GFR 30- 59 Moderately Decreased</content>
<content>Stage IV GFR 15-29 Severely Decreased</content>
<content>Stage V GFR <15 Very Little GFR Left</content>
<content>ESRD GFR <15 on FIRE DEPARTMENT MARINE ENGINEER</content>
<content></content> Chloride Level 107 meq/L 98-107 [facility] ([facility]) Potassium Serum 4.7 meq/L 3.5-5.1 [facility] ([facility]) Carbon Dioxide Level 26 meq/L 21-32 [facility] ([facility]) Calcium Level 8.3 mg/dL 8.8-10.2 [facility] ([facility]) Ast/Sgot 12 U/L 7-37 [facility] [facility]) Anion Gap 5 meq/L 8-16 [facility] Alkaline Phosphatase 83 U/L 45-117 [facility] ([facility]) Bilirubin,Total 0.2 mg/dL 0.2-1.0 [facility] ([facility]) Alt/SGPT 19 U/L 12-78 [facility] Albumin 1.8 GM/DL 3.2-5.2 [facility] ([facility] Total Protein 6.0 GM/DL 6.4-8.2 [facility] ([facility]) Albumin/Globulin Ratio 0.4 1.2-2.2 [facility] ([facility]) ID Date Data Source [id number] 03/27/2020 06:50:00 PM EST [facility] ([facility]) Name Value Range Interpretation Code Description Data Jacqui rce(s) Supporting Document(s) Erythrocyte sedimentation rate by Westergren method 125 mm/hr 0-30 [facility] ([facility]) ID Date Data Source [id number] 03/27/2020 06:50:00 PM EST [facility] ([facility]) Name Value Range Interpretation Code Description Data Jacqui rce(s) Supporting Document(s) White Blood Count 8.9 10 4.0-10.0 [facility] ([facility]) Red Blood Count 2.98 10 4.00-5.40 [facility] ([facility]) Hematocrit 26.6 % 36.0-47.0 [facility] [facility] Hemoglobin 7.7 g/dL 12.0-15.5 [facility] [facility] Mean Corpuscular Volume 89.3 fl 80.0-96.0 [facility] ([facility]) Mean Corpuscular HGB Conc 28.9 g/dL 32.0-36.5 [facility] ([facility]) Mean Corpuscular Hemoglobin 25.8 pg 27.0-33.0 [facility] ([facility]) Neutrophils % 70.7 % 36.0-66.0 [facility] ([facility]) Platelet Count, Automated 249 10 150-450 [facility] ([facility]) Red Cell Distribution Width 15.1 % 11.5-14.5 [facility] ([facility]) Lymph % 17.2 % 24.0-44.0 [facility] ([place] [facility]) [place] % 8.2 % 0.0-5.0 [facility] [facility]) Eos % 1.0 % 0.0-3.0 [facility] [facility]) Nucleated Red Blood Cell % 0.0 % 0-0 [facility] ([facility]) Baso % 0.8 % 0.0-1.0 [facility] [facility]) Immature Granulocyte % 2.1 % 0-3.0 [facility] ([facility]) Neutrophils # 6.3 10 1.5-8.5 [facility] [facility]) Lymph # 1.5 10 1.5-5.0 [facility] [facility]) [place] # 0.7 10 0.0-0.8 [facility] [facility]) Eos # 0.1 10 0.0-0.5 [facility] [facility]) Baso # 0.1 10 0.0-0.2 [facility] [facility]) ID Date Data Source [id number] 03/20/2020 01:00:00 PM EST [facility] Name Value Range Interpretation Code Description Data Jacqui rce(s) Supporting Document(s) SARS coronavirus 2 RNA [facility] This lab was ordered by [facility] and reported by [facility]. ID Date Data Source [id number] 03/14/2020 06:00:00 AM EST [facility] Name Value Range Interpretation Code Description Data Jacqui rce(s) Supporting Document(s) SARS coronavirus 2 RNA [facility] This lab was ordered by [facility] and reported by [facility]. ID Date Data Source [id number] 03/07/2020 01:30:00 PM EST [facility] Name Value Range Interpretation Code Description Data Jacqui rce(s) Supporting Document(s) SARS coronavirus 2 RNA [facility] This lab was ordered by [facility] and reported by [facility]. ID Date Data Source [id number] 02/21/2020 03:22:00 PM EDT MED[facility] ([facility]) Name Value Range Interpretation Code Description Data Jacqui rce(s) Supporting Document(s) Ast/Sgot 13 U/L 7-37 [facility] ([facility]) Alt/SGPT 19 U/L 12-78 [facility] ([facility]) Alkaline Phosphatase 75 U/L 45-117 [facility] ([facility]) Bilirubin,Direct 0.1 mg/dL 0.0-0.2 [facility] ([facility]) Bilirubin,Total 0.4 mg/dL 0.2-1.0 [facility] ([facility]) Albumin 2.5 GM/DL 3.2-5.2 [facility] ([facility]) Albumin/Globulin Ratio 0.7 1.2-2.2 [facility] ([facility]) Total Protein 6.1 GM/DL 6.4-8.2 [facility] ([facility]) ID Date Data Source [id number] 02/21/2020 03:22:00 PM EDT [facility] ([facility]) Name Value Range Interpretation Code Description Data Jacqui rce(s) Supporting Document(s) CPK Creatine Phosphokinase 73 U/L 26-192 [facility] ([facility]) CK-MB Value Mass 1.4 ng/mL [facility] ([facility]) Troponin I Laboratory test result [facility] ([facility]) <content>Troponin I Reference Interval f or Siemens [place] LOCI:</content>
<content></content>
<content>99th Percentile= 0.00-0.045 ng/ml</content>
<content></content>
<content>Risk Stratification:</content>
<content><= 0.10 ng/ml Decreased Risk for Adverse Clinical</content>
<content>Events.</content>
<content>0.10-1.50 ng/ml Increased Risk for Adverse Clinical</content>
<content>Events. Evaluation of additional</content>
<content>criterion and/or repeat testing in 2-6</content>
<content>hours is suggested to rule out myocardial</content>
<content>damage.</content>
<content>>= 1.50 ng/ml Indicative of Myocardial Injury.</content>
<content></content> MB/CK Relative Index 1.[address] [facility]) <content>DIAGNOSIS CRITERIA</content>
<content>MMB ng/ml Relative Index (RI)</content>
<content>NON-AMI < or = 5 N/A</content>
<content>LOCKETT ZONE > 5 < or = 4</content>
<content>AMI > 5 > 4</content>
<content></content> ID Date Data Source [id number] 02/21/2020 03:22:00 PM EDT [facility]) Name Value Range Interpretation Code Description Data Jacqui rce(s) Supporting Document(s) Lactate [Mass/volume] in Serum or Plasma 1.0 mmol/L 0.4-2.[address] [facility]) Y/N query for Sepsis Lactate Rule: Y Procedure Social History Code Duration Value Status Description Data Source(s ) Smoking 06/04/2020 12:00:00 AM EST Former Smoker completed Former Smoker [facility] ([facility]) Smoking 05/21/2020 12:00:00 AM EST Former Smoker completed Former Smoker eC ([facility]) Smoking 05/21/2020 12:00:00 AM EST Former Smoker completed Former Smoker [facility] ([facility]) Vital Signs ID Date Data Source UNK Name Value Range Interpretation Code Description Data Source(s) Body height 60 [in_i] 60 [in_i] [facility] ([facility], ) 5'0" Body weight 234.00 [lb_av] 234.00 [lb_av] [facility] T ([facility]) [place] body weight 100 [lb_av] 100 [lb_av] MED[facility] T ([facility]) Body weight 106.142 kg 106.142 kg [facility] ([facility]) Body mass index (BMI) [Ratio] 45.7 kg/m2 45.7 k g/m2 [facility] ([facility]) Body surface area Derived from formula 2.00 m2 2.00 m2 [facility] ([facility]) Body height 60 [in_i] 60 [in_i] [facility] ([facility]) 5'0" Body weight 234.00 [lb_av] 234.00 [lb_av] MED[facility] T ([facility]) Body mass index (BMI) [Ratio] 45.7 kg/m2 45.7 k g/m2 [facility] ([facility]) [place] body weight 100 [lb_av] 100 [lb_av] MED[facility] T ([facility]) Body weight 106.142 kg 106.[address] [facility] Body surface area Derived from formula 2.00 m2 2.00 m2 [facility] ([facility]) Body weight 233 [lb_av] 233 [lb_av] eCW1 ([facility]) Body height 61.5 [in_i] 61.5 [in_i] eCW1 ([facility]) Body mass index (BMI) [Ratio] 43.31 kg/m2 43.31 kg/m2 eCW1 ([facility]) Heart rate 67 /min 67 /min eCW1 ([facility]) Respiratory rate 18 /min 18 /min eCW1 ([facility]) Body temperature 96.8 [degF] 96.8 [degF] eCW1 ( [facility]) Systolic blood pressure 132 mm[Hg] 132 mm[Hg] e CW1 ([facility]) Diastolic blood pressure 68 mm[Hg] 68 mm[Hg] eCW1 ([facility]) Systolic blood pressure 132 mm[Hg] 132 mm[Hg] [facility] Diastolic blood pressure 72 mm[Hg] 72 mm[Hg] [facility] Heart rate 70 /min 70 /min [facility] Respiratory rate 16 /min 16 /min [facility] Body height 154.9 cm 154.9 cm [facility] Body weight 97.523 kg 97.523 kg [facility] wt reported from 05/22/20 at the facility Body mass index (BMI) [Ratio] 40.62 kg/m2 40.62 kg/m2 [facility] Oxygen saturation in Arterial blood by Pulse oximetry 16 % 16 % [facility] Body weight 233 [lb_av] 233 [lb_av] eCW1 ([facility]) Body height 61.5 [in_i] 61.5 [in_i] eCW1 ([facility]) Body mass index (BMI) [Ratio] 43.31 kg/m2 43.31 kg/m2 W1 ([facility]) Heart rate 75 /min 75 /min eCW1 ([facility]) Respiratory rate 20 /min 20 /min eCW1 ([facility]) Body temperature 96.4 [degF] 96.4 [degF] eCW1 ( [facility]) Systolic blood pressure 130 mm[Hg] 130 mm[Hg] e CW1 ([facility]) Diastolic blood pressure 72 mm[Hg] 72 mm[Hg] eCW1 ([facility]) Patient Treatment Plan of Care Planned Activity Planned Date Details Description Data Source (s) 3 ML Insulin Lispro 100 UNT/ML Pen Injector [Humalog] 03/23/2020 12:00:[address] [facility] Spironolactone 25 MG Oral Tablet 03/14/2020 12:00:00 AM EST [facility] pantoprazole 40 MG Delayed Release Oral Tablet 03/10/2020 12:00:00 AM EST [facility] clopidogrel 75 MG Oral Tablet 03/08/2020 12:00:00 AM EST [facility] atorvastatin 40 MG Oral Tablet 03/08/2020 12:00:00 AM EST [facility] Fluoxetine 10 MG Oral Capsule 03/08/2020 12:00:00 AM EST [facility] Hydralazine Hydrochloride 50 MG Oral Tablet 03/08/2020 12:00:00 AM EST [facility] Isosorbide Dinitrate 20 MG Oral Tablet 03/08/2020 12:00:00 AM EST [facility] ferrous gluconate 324 MG Oral Tablet 03/03/2020 12:00:00 AM EST [facility] Ondansetron 4 MG Oral Tablet 03/03/2020 12:00:00 AM EST [facility] Hydralazine Hydrochloride 100 MG Oral Tablet [facility]
[2021-02-23] MEDS ORDERED: MORPHINE 2 MG/ML 1ML VIAL (J2270) IV ONE (15:30)
[2021-02-23] MEDS ORDERED: ONDANSETRON 4MG/2ML VIAL IV ONE (15:30)
[2021-02-23 15:58] LABS: BASO # 0.1 10^3/uL (0.0-0.2); BASO % 0.7 % (0.0-1.0); EOS # 0.2 10^3/uL (0.0-0.5); EOS % 2.2 % (0.0-3.0); HEMATOCRIT 31.2 % (36.0-47.0); HEMOGLOBIN 9.4 g/dl (12.0-15.5); LYMPH # 0.8 10^3/uL (1.5-5.0); LYMPH % 10.7 % (24.0-44.0); MEAN CORPUSCULAR HEMOGLOBIN 29.3 pg (27.0-33.0); MEAN CORPUSCULAR HGB CONC 30.1 g/dl (32.0-36.5); MEAN CORPUSCULAR VOLUME 97.2 fl (80.0-96.0); MONO # 0.5 10^3/uL (0.0-0.8); MONO % 6.9 % (2.0-8.0); NEUTROPHILS # 5.8 10^3/uL (1.5-8.5); NEUTROPHILS % 77.7 % (36.0-66.0); PLATELET COUNT, AUTOMATED 135 10^3/uL (150-450); RED BLOOD COUNT 3.21 10^6/uL (4.00-5.40); WHITE BLOOD COUNT 7.4 10^3/uL (4.0-10.0)
--- NOTE | 2021-02-23 16:19 | REP ---
INDICATION: TRAUMA. COMPARISON: None. TECHNIQUE: Two views FINDINGS: Clothing/bedding artifact obscures the distal femur at the knee to such a degree a subtle fracture could be obscured. No gross fracture is identified. IMPRESSION: Limitations as described above. Repeat removing clothing/bedding artifact. <Electronically signed by Arvind Milligan > 02/23/21 [id number]
--- NOTE | 2021-02-23 16:21 | REP ---
INDICATION: INCLUDE PELVIS TRAUMA. TECHNIQUE: AP pelvis two views right hip FINDINGS: There is a right femoral neck fracture. No additional pelvic fractures are identified. There are left hip degenerative changes. IMPRESSION: Right hip fracture as described above. <Electronically signed by Arvind Milligan > 02/23/21 [id number]
--- NOTE | 2021-02-23 16:22 | REP ---
INDICATION: PREOP. COMPARISON: Frontal view of 02/13/2021 TECHNIQUE: AP supine chest FINDINGS: The technique utilized in obtaining the radiograph has magnified the cardiac silhouette and accentuated the interstitial markings. There is cardiomegaly accentuated by technique status quo. There is chronic interstitial fibrotic change and chronically increased interstitial markings with central pulmonary vascular engorgement all unchanged. No definite new abnormal opacities have developed. IMPRESSION: Chronic changes as described above. Correlate clinically to rule out the possibility of acute disease superimposed upon chronic change. <Electronically signed by Arvind Milligan > 02/23/21 [id number]
[2021-02-23 16:33] LABS: CREATININE FOR GFR 2.04 MG/DL (0.55-1.30); GLOMERULAR FILTRATION RATE 25.4 (>39); MB/CK RELATIVE INDEX 1.61 (< OR =4); POTASSIUM SERUM 5.1 MEQ/L (3.5-5.1)
[2021-02-23] MEDS ORDERED: fentaNYL 100 MCG/2 ML INJECTION (J3010) IV ONE (16:35)
[2021-02-23 16:42] LABS: RSV AMPLIFICATION NEGATIVE (NEGATIVE)
--- OUTSIDE RECORDS SUMMARY | 2021-02-23 16:45 | CCD ---
Author Author [facility] Organization [facility] Address Unknown Phone Unavailable Care Team Providers Care Air And Water Filler Name Role Phone Fish, B Avery FARFAN [...] Avery FARFAN Unavailable Unavailable Fish, B Avery AFRFAN Unavailable Unavailable Fish, B Avery FARFAN Unavailable [...] Fish, B Avery FARFAN Unavailable Unavailable Fish, [facility], PA-C Unavailable Unavailabl e Fish, [facility], PA-C Unavailable Unavailabl e Fish, [facility], PA-C Unavailable Unavailabl e Fish, [facility], PA-C Unavailable Unavailabl e Fish, [facility], PA-C Unavailable Unavailabl e Fish, [facility], PA-C Unavailable Unavailabl e Fish, [facility], PA-C Unavailable Unavailabl e Fish, [facility], PA-C Unavailable Unavailabl e Fish, [facility], PA-C Unavailable Unavailabl e Fish, [facility], PA-C Unavailable Unavailabl e Fish, [facility], PA-C Unavailable Unavailabl e Fish, [facility], PA-C Unavailable Unavailabl e Fish, [facility], PA-C Unavailable Unavailabl e Fish, [facility], PA-C Unavailable Unavailabl e Fish, [facility], PA-C Unavailable Unavailabl e Fish, [facility], PA-C Unavailable Unavailabl e Fish, [facility], PA-C Unavailable Unavailabl e Fish, [facility], PA-C Unavailable Unavailabl e Fish, [facility], PA-C Unavailable Unavailabl e Fish, [facility], PA-C Unavailable Unavailabl e Fish, [facility], PA-C Unavailable Unavailabl e Fish, [facility], PA-C Unavailable Unavailabl e Fish, [facility], PA-C Unavailable Unavailabl e Fish, [facility], PA-C Unavailable Unavailabl e Fish, [facility], PA-C Unavailable Unavailabl e Fish, [facility], PA-C Unavailable Unavailabl e Fish, [facility], PA-C Unavailable Unavailabl e Fish, [facility], PA-C Unavailable Unavailabl e Fish, [facility], PA-C Unavailable Unavailabl e Fish, [facility], PA-C Unavailable Unavailabl e Fish, [facility], PA-C Unavailable Unavailabl e Fish, [facility], PA-C Unavailable Unavailabl e Fish, [facility], PA-C Unavailable Unavailabl e Fish, [facility], PA-C Unavailable Unavailabl e Fish, [facility], PA-C Unavailable Unavailabl e Fish, [facility], PA-C Unavailable Unavailabl e Kourtney, N Pramod ARCHITECTURE PROFESSOR Unavailable Unavailable Kourtney, N Pramod ARCHITECTURE PROFESSOR Unavailable Unavailable Kourtney, N Pramod ARCHITECTURE PROFESSOR Unavailable Unavailable [place]ourtney, N Pramod ARCHITECTURE PROFESSOR Unavailable Unavailable [place], N Pramod ARCHITECTURE PROFESSOR Unavailable Unavailable Kourtney, N Pramod ARCHITECTURE PROFESSOR Unavailable Unavailable Kourtney, N Pramod ARCHITECTURE PROFESSOR Unavailable Unavailable [place], N Pramod ARCHITECTURE PROFESSOR Unavailable Unavailable [place], N Pramod ARCHITECTURE PROFESSOR Unavailable Unavailable [place], N Pramod ARCHITECTURE PROFESSOR Unavailable Unavailable [place], N Pramod ARCHITECTURE PROFESSOR Unavailable Unavailable [place], N Pramod ARCHITECTURE PROFESSOR Unavailable Unavailable [place], N Pramod ARCHITECTURE PROFESSOR Unavailable Unavailable [place], N Pramod ARCHITECTURE PROFESSOR Unavailable Unavailable [place], N Pramod ARCHITECTURE PROFESSOR Unavailable Unavailable [place], N Pramod ARCHITECTURE PROFESSOR Unavailable Unavailable [place], N Pramod ARCHITECTURE PROFESSOR Unavailable Unavailable [place], N Pramod ARCHITECTURE PROFESSOR Unavailable Unavailable [place], N Pramod ARCHITECTURE PROFESSOR Unavailable Unavailable [place], N Pramod ARCHITECTURE PROFESSOR Unavailable Unavailable [place]ourtney, N Pramod ARCHITECTURE PROFESSOR Unavailable Unavailable [place], N Pramod ARCHITECTURE PROFESSOR Unavailable Unavailable [place], N Pramod ARCHITECTURE PROFESSOR Unavailable Unavailable [place], N Pramod ARCHITECTURE PROFESSOR Unavailable Unavailable [place], N Pramod ARCHITECTURE PROFESSOR Unavailable Unavailable [place], N Pramod ARCHITECTURE PROFESSOR Unavailable Unavailable [place], N Pramod ARCHITECTURE PROFESSOR Unavailable Unavailable [place], N Pramod ARCHITECTURE PROFESSOR Unavailable Unavailable [place], N Pramod ARCHITECTURE PROFESSOR Unavailable Unavailable [place], N Pramod ARCHITECTURE PROFESSOR Unavailable Unavailable [place], N Pramod ARCHITECTURE PROFESSOR Unavailable Unavailable [place], N Pramod ARCHITECTURE PROFESSOR Unavailable Unavailable [place], N Pramod ARCHITECTURE PROFESSOR Unavailable Unavailable Ela HERNANDEZ MD Unavailable Unavailable [...] is protected by Article 27-F of the [facility] Public Health law. If you continue you may have access to information: Regarding HIV / AIDS; Provided by facilities licensed or operated by the [facility] Office of Mental Health; or Provided by the [facility] Office for People With Developmental Disabilities. If such information is present, then the following [facility] mandated warning applies: This information [...] Thornton/Imelda/Guero montelongo/Nicko 07/26/2020 10:30:00 AM EDT [facility] ([facility]) OFFICE OUTPATIENT VISIT 15 MINUTES Attender: Avery Butcher MD Phys ical Therapy 07/09/2020 01:00:00 PM EDT [facility] ([facility]) OFFICE OUTPATIENT VISIT 15 MINUTES Attender: Ellie KELLEY PA-C Physical Therapy 07/02/2020 09:30:00 AM EST [facility] ([facility]) TeleMedicine Est. Pt. Level 4 [address] [place] [address] 06/04/2020 12:00:00 AM EST eCW1 ([facility]) Outpatient Attender: Pramod RIZVIP.DARIA-SJP.DARIA 021 12:00:00 AM EST - 05/27/2020 11:30:[address] [facility] TeleMedicine Phone E/M by Phys 21-30 Min [address] [place] [address] 05/21/2020 12:00:00 AM EST eCW1 ([facility]) Unknown [address] [facility] [address] 05/21/2020 12:00:00 AM EST eCW1 ([facility]) Outpatient Attender: Avery Butcher MD Physical Therapy 05/09/2020 0 3:09:00 PM EST [facility] ([facility]) Immunizations Vaccine Date Status Description Data Source(s) COVID-19 VACCINE Pfizer 05/20/2020 12:00:00 AM EST completed [facility] Vaccine Series Complete: YESThis Data wa s Submitted to [facility] Via [facility]. COVID-19 VACCINE Pfizer 04/29/2020 12:00:00 AM EST completed [facility] Vaccine Series Complete: NOThis Data was Submitted to [facility]. Medications Medication Brand Name Start Date Product [...] Clenpiq 11/06/2020 12:00:00 AM EDT active [facility] ([facility]) Bisacodyl 5 MG Delayed Release Oral Tablet [Dulcolax] Dulcol ax 11/06/2020 12:00:00 AM EDT active M Y[facility]ONNE ([facility] ) 100 unit/mL (3 mL) 04/06/2020 12:00:00 AM EST insulin pen 3 INJECT 40UNITS UNDER THE SKIN IN THE MORNING INJECT 40UNITS UNDER THE SKIN IN THE MORNING SOLD: 04/06/2020 [facility] 3 ML Insulin Lispro 100 UNT/ML Pen Injec tor [Humalog] HUMALOG KWIKPEN 100 UNIT/ML SOPN HUMALOG KWIKPEN 100 UNIT/ML SOPN 03/23/2020 12:00:00 AM EST active [facility] Sp[facility]one 25 MG Oral Tablet spironolactone (ALDAC TONE) 25 MG tablet spironolactone (ALDACTONE) 25 MG tablet 03/14/2020 12:00:00 AM EST active [facility] pantoprazole 40 MG Delayed Release Oral Tablet pantoprazole (PROTONIX) 40 MG tablet pantoprazole (PROTONIX) 40 MG tablet 03/10/2020 12:00:00 AM EST active [facility] pantoprazole 40 MG Delayed Release Oral Tablet PANTOPRAZOLE SODIUM 03/10/2020 12:00:00 AM EST tablet,delayed release (DR/EC) 1 T CAYETANO ONE TABLET BY MOUTH TWICE A DAY TAKE ONE TABLET BY MOUTH TWICE A DAY SOLD: 03/10/2020 [facility] clopidogrel 75 MG Oral Tablet clopidogrel (PLAVIX) 75 MG tablet clopidogrel (PLAVIX) 75 MG tablet 03/08/2020 12:00:00 AM EST a ctive [facility] atorvastatin 40 MG Oral Tablet atorvastatin (LIPITOR) 40 MG tablet atorvastatin (LIPITOR) 40 MG tablet 03/08/2020 12:00:00 AM EST active [facility] Fluoxetine 10 MG Oral Capsule FLUoxetine (PROZAC) 10 M G capsule FLUoxetine (PROZAC) 10 MG capsule 03/08/2020 12:00:00 AM EST 30 mg active 30 mg [facility] Hydralazine Hydrochloride 50 MG Oral Tab let hydrALAZINE (APRESOLINE) 50 MG tablet hydrALAZINE (APRESOLINE) 50 MG tablet 03/08/2020 12:00:00 AM EST active [facility] Isosorbide Dinitrate 20 MG Oral Tablet i sosorbide dinitrate (ISORDIL) 20 MG tablet isosorbide dinitrate (ISORDIL) 20 MG tablet 03/08/2020 12:00:00 AM EST active [facility] ferrous gluconate 324 MG Oral Tablet ferrous gluconate (FERGON) 324 MG tablet ferrous gluconate (FERGON) 324 MG tablet 03/03/2020 12:00:00 AM EST active TAKE ONE TABLET BY MOUTH EVERY D AY START TODAY [facility] 324 mg (38 mg iron) 03/03/2020 12:00:00 [...] tablet 03/03/2020 12:00:00 AM EST ac tive [facility] Cephalexin 500 MG Oral Capsule CEPHALEXIN 02/20/2020 [...] by mouth 3 (three) times a day [facility] Insurance Providers Payer name Policy type / Coverage type Policy ID Covered alliance party ID Covered alliance party's relationship to martinez Policy Martinez Plan Information MEDICARE [id number] [facility] [id number] N49 MEDICARE [id number] xxxxxxxxxxx [id number] Ghi/Beatriz [facility] (pr) Commercial [id number] Self [id number] Ghi/Emblem [facility] (pr) Commercial [id number] Self [id number] [facility] (pr) Commercial [id number] Self [id number] [facility] (pr) Commercial [id number] Self EMEDNY [id number] SP [id number] [employer] [id number] SP [id number] [facility] [id number] SP [id number] [employer] [id number] MEDICAID [id number] S [id number] MEDICARE C [id number] S [id number] [id number] [facility] [id number] SP [id number] MEDICAID [id number] SP [id number] [employer] [id number] SP [id number] MEDICARE [id number] [facility] MEDICAID [id number] SP [id number] MEDICARE [id number] SP [id number] A MEDICARE [id number] SP [id number] GHI FEDERAL [id number] SP [id number] MEDICARE [id number] SP [id number] A MEDICAID -O/P [id number] MEDICARE PART A -O/P [id number] 18 [id number] GHI [facility] -O/P [id number] 18 [id number] [facility] [id number] SP [id number] [facility] O [id number] S [id number] [facility] [id number] SP [id number] MEDICARE [id number] SP [id number] A MEDICARE - [facility] [id number] S [id number] GHI COMM CONTR [id number] S [id number] [employer] [id number] SP [id number] GHI FEDERAL [id number] [facility] [id number] SP [id number] MEDICARE [id number] SP [id number] N49 MEDICARE [id number] SP [id number] N49 [facility] [id number] SP [id number] [facility] [id number] SP [id number] Problems, Conditions, and Diagnoses Code Display Name Description Problem Type Effective Dates Data Source(s) I10 Essential (primary) hypertension Essential (primary) h ypertension Diagnosis 05/27/2020 10:51:42 AM EST [facility] R60.0 Localized edema Localized edema Diagnosis 05/27/2020 10:5 1:42 AM EST [facility] [id number] Type 2 diabetes mellitus Type 2 diabetes mellitus Prob denzel 07/02/2020 12:00:00 AM EST [facility] ([facility] ) L89.620 [id number] Decubitus ulcer, heel, left, unstageable Problem 05/21/2020 12:00:00 AM EST eCW1 ([facility]) Z22.322 [id number] MRSA (methicillin resistant stap h aureus) culture positive Problem 05/21/2020 12:00:00 AM EST eCW1 ([facility]) M86.271 [id number] Subacute osteomyelitis of right foot Problem 05/21/2020 12:00:00 AM EST eCW1 ([facility]) Surgeries/Procedures Procedure Description Date Indications Data Source(s) Colonoscopy Flexible Proximal To Splenic Flexure W/Biopsy Si ngle/ 12/05/2020 12:00:00 AM EDT [facility] ([facility], ) Colonoscopy W/ Poly 12/05/2020 12:00:00 AM EDT [facility] ([facility], ) OFFICE OUTPATIENT VISIT 25 MINUTES 07/26/2020 12:00:00 AM EDT [facility] ([facility], ) INCISION & DRAINAGE ABSCESS SIMPLE/SINGLE 05/09/2020 1 2:00:00 AM EST [facility] ([facility]) Results ID Date Data Source [id number] 12/05/2020 10:59:00 AM EDT [facility] ) Name Value Range Interpretation Code Description Data Jacqui rce(s) Supporting Document(s) Surgical pathology study Laboratory test result [facility] ([facility], ) FINAL DIAGNOSIS Cecal polyp, [...] MD 12/06/2020 1201 ID Date Data Source [id number] 12/02/2020 09:30:00 AM EDT [facility] Name Value Range Interpretation Code Description Data Jacqui rce(s) Supporting Document(s) SARS coronavirus 2 RNA [Presence] in Res piratory specimen by TIMMY with probe detection NEGATIVE [facility] This lab was ordered by [facility] a nd reported by [facility]. ID Date Data Source [id number] 09/05/2020 12:00:00 AM EDT [facility] Name Value Range Interpretation Code Description Data Jacqui rce(s) Supporting Document(s) SARS-CoV2 Rapid Antigen Negative [facility] This lab was ordered by [facility] and reported by [facility]. ID Date Data Source [id number] 08/21/2020 09:42:00 AM EDT [facility] Name Value Range Interpretation Code Description Data Jacqui rce(s) Supporting Document(s) SARS coronavirus 2 RNA [Presence] in Res piratory specimen by TIMMY with probe detection NEGATIVE [facility] This lab was ordered by [facility] a nd reported by [facility]. ID Date Data Source [id number] 08/08/2020 12:18:00 PM EDT [facility] Name Value Range Interpretation Code Description Data Jacqui rce(s) Supporting Document(s) SARS coronavirus 2 RNA [Presence] in Res piratory specimen by TIMMY with probe detection NEGATIVE [facility] This lab was ordered by [facility] a nd reported by [facility]. ID Date Data Source [id number] 08/03/2020 02:03:00 AM EDT [facility] Name Value Range Interpretation Code Description Data Jacqui rce(s) Supporting Document(s) SARS coronavirus 2 RNA [Presence] in Res piratory specimen by TIMMY with probe detection NEGATIVE [facility] This lab was ordered by [facility] a nd reported by [facility]. ID Date Data Source [id number]/02/2020 12:00:00 AM EDT [facility] Name Value Range Interpretation Code Description Data Jacqui rce(s) Supporting Document(s) SARS coronavirus 2 Ag Negative [facility] This lab was ordered by [facility] and reported by [facility]. ID Date Data Source [id number] 08/01/2020 11:00:00 AM EDT [facility] Name Value Range Interpretation Code Description Data Jacqui rce(s) Supporting Document(s) SARS-CoV-2 (COVID 19) NEGATIVE - SARS-CoV-2 (COVID19) [facility] This lab was ordered by [facility] a nd reported by [facility]. ID Date Data Source [id number] 07/26/2020 12:00:00 AM EDT [facility] Name Value Range Interpretation Code Description Data Jacqui rce(s) Supporting Document(s) SARS-CoV2 Rapid Antigen Negative [facility] This lab was ordered by [facility] and reported by [facility]. ID Date Data Source [id number] 07/03/2020 08:30:00 AM EST [facility] Name Value Range Interpretation Code Description Data Jacqui rce(s) Supporting Document(s) SARS coronavirus 2 RNA Not Detected [facility] This lab was ordered by [facility] and reported by [facility]. ID Date Data Source [id number] 06/26/2020 01:00:00 PM EST [facility] Name Value Range Interpretation Code Description Data Jacqui rce(s) Supporting Document(s) SARS coronavirus 2 RNA Not Detected [facility] This lab was ordered by [facility] and reported by [facility]. ID Date Data Source [id number] 06/19/2020 12:50:00 PM EST [facility] Name Value Range Interpretation Code Description Data Jacqui rce(s) Supporting Document(s) SARS coronavirus 2 RNA Not Detected [facility] This lab was ordered by [facility] and reported by [facility]. ID Date Data Source [id number] 2020 08:31:00 AM EST [facility] Name Value Range Interpretation Code Description Data Jacqui rce(s) Supporting Document(s) SARS coronavirus 2 RNA [Presence] in Res piratory specimen by TIMMY with probe detection NEGATIVE [facility] This lab was ordered by [facility] a nd reported by [facility]. ID Date Data Source [id number] 06/14/2020 10:10:00 AM EST [facility] Name Value Range Interpretation Code Description Data Jacqui rce(s) Supporting Document(s) SARS-CoV-2 (COVID 19) NEGATIVE - SARS-CoV-2 (COVID19) [facility] This lab was ordered by [facility] a nd reported by [facility]. ID Date Data Source [id number] 06/11/2020 06:42:00 PM EST [facility] Name Value Range Interpretation Code Description Data Jacqui rce(s) Supporting Document(s) SARS coronavirus 2 RNA [Presence] in Res piratory specimen by TIMMY with probe detection NEGATIVE [facility] This lab was ordered by [facility] a nd reported by [facility]. ID Date Data Source [id number] 06/11/2020 04:19:00 PM EST [facility] Name Value Range Interpretation Code Description Data Jacqui rce(s) Supporting Document(s) Appearance, Urine RFX Laboratory test result [facility] ([facility]) Color, Urine RFX Laboratory test result [facility] ([facility]) Protein, Urine Auto RFX Laboratory test result [facility] ([facility] Specific [place] Ur Auto RFX 1.013 1.002-1.035 [facility] ([facility]) PH,Urine RFX 5.0 units 5.0-9.0 [facility] ([facility]) Ketone, Urine Auto RFX Laboratory test result [facility] ([facility]) Glucose, Urine (Ua) Auto RFX Laboratory test result [facility] ([facility]) Urobilinogen, Urine Auto RFX 0.2 mg/dL 0.0-2.0 [facility] ([facility]) Bilirubin, Urine Auto RFX Laboratory test result [facility] ([facility] Nitrite, Urine Auto RFX Laboratory test result [facility] ([facility]) Leukocyte Esterase Ur Auto RFX Laboratory test result [facility] ([facility]) Blood, Urine Blood RFX Laboratory test result [facility] ([facility]) WBC, Urine Auto RFX 2 /HPF 0-3 [facility] ([facility] RBC, Urine Auto RFX 3 /HPF 0-3 [facility] ([facility] Squam Epithelial Cell Ur Aurfx 2 /HPF 0-6 [facility] ([facility]) Bacteria, Urine Auto RFX Laboratory test result [facility] ([facility]) Hyaline Cast, Urine Auto RFX 0 /LPF 0-1 [facility] ([facility]) ID Date Data Source [id number] 06/11/2020 02:41:00 PM EST [facility] ([facility]) Name Value Range Interpretation Code Description Data Jacqui rce(s) Supporting Document(s) Ammonia [Mass/volume] in Blood 11 uMOL/L [facility]) ID Date Data Source [id number] 06/11/2020 02:41:00 PM EST [facility] ([facility]) Name Value Range Interpretation Code Description Data Jacqui rce(s) Supporting Document(s) Venous PH 7.377 units 7.330-7.430 [facility]) Venous Partial Pressure Co2 52.1 mmHg 38.0-50.0 [facility] ([facility]) Venous Partial Pressure O2 72.1 mmHg 30.0-50.0 [facility] ([facility]) Venous Total Co2 31.5 meq/L 24.0-28.0 [facility] ([facility]) Venous Hco3 29.9 meq/L 23.0-27.0 [facility] ([facility]) Venous O2 Saturation 94.3 % 60.0-80.0 [facility] ([facility]) Venous Base Excess 3.8 [facility]) Venous Standard Hco3 27.8 meq/L [facility] ( [facility]) ID Date Data Source [id number] 06/11/2020 02:40:00 PM EST [facility] ([facility]) Name Value Range Interpretation Code Description Data Jacqui rce(s) Supporting Document(s) Osmolality of Serum or Plasma 347 MOSM/KG 280-301 [facility] ([facility] Natriuretic peptide.B prohormone N-Terminal [Mass/volu me] in Serum or Plasma 1582 pg/mL [facility] ([facility] ) Thyrotropin [Units/volume] in Serum or Plasma by Detec tion limit <= 0.05 mIU/L 0.513 uIU/ML 0.358-3.740 [facility] ID Date Data Source [id number] 06/11/2020 02:40:00 PM EST [facility] ([facility] Name Value Range Interpretation Code Description Data Jacqui rce(s) Supporting Document(s) Glucose, Fasting 285 mg/dL 70-100 [facility] ([facility]) Blood Urea Nitrogen 117 mg/dL 7-18 [facility] ([facility]) Glomerular Filtration Rate 29.6 [facility] ([facility]) <content>Units are mL/min/1.73 m2</content>
<content></content>
<content>Chronic Kidney Disease Staging per NKF:</content>
<content></content>
<content>Stage I & II GFR >=60 Normal to Mildly Decreased</content>
<content>Stage III GFR 30- 59 Moderately Decreased</content>
<content>Stage IV GFR 15-29 Severely Decreased</content>
<content>Stage V GFR <15 Very Little GFR Left</content>
<content>ESRD GFR <15 on PROTOTYPE ENGINEER</content>
<content></content> Creatinine For GFR 1.79 mg/dL 0.55-1.30 [facility] ([facility]) Potassium Serum 4.2 meq/L 3.5-5.1 [facility] ([facility]) Chloride Level 107 meq/L 98-107 [facility] ([facility]) Sodium Level 145 meq/L 136-145 [facility] ([facility]) Anion Gap 5 meq/L 8-16 [facility] ([facility] Carbon Dioxide Level 33 meq/L 21-32 [facility] ([facility] Calcium Level 10.6 mg/dL 8.8-10.2 [facility] ([facility]) ID Date Data Source [id number] 06/11/2020 02:40:00 PM EST [facility] ([facility]) Name Value Range Interpretation Code Description Data Jacqui rce(s) Supporting Document(s) Ast/Sgot 11 U/L 7-37 [facility] ([facility]) Alkaline Phosphatase 84 U/L 45-117 [facility] ([facility] Alt/SGPT 28 U/L 12-78 [facility] ([facility]) Bilirubin,Total 0.2 mg/dL 0.2-1.0 [facility] ([facility]) Total Protein 5.5 GM/DL 6.4-8.2 [facility] ([facility]) Bilirubin,Direct Laboratory test result 0.0-0.2 [facility] ([facility] Albumin 2.9 [facility].2[facility]5.2 [facility] Albumin/Globulin Ratio 1.1 1.2-2.2 [facility] ([facility]) ID Date Data Source [id number] 06/11/2020 02:40:00 PM EST [facility] ([facility] Name Value Range Interpretation Code Description Data Jacqui rce(s) Supporting Document(s) CK-MB Value Mass Laboratory test result [facility] ([facility]) CPK Creatine Phosphokinase 15 U/L 26-192 [facility] ([facility]) MB/CK Relative Index 6.67 [facility] ([facility] <content>DIAGNOSIS CRITERIA</content>
<content>MMB ng/ml Relative Index (RI)</content>
<content>NON-AMI < or = 5 N/A</content>
<content>LOCKETT ZONE > 5 < or = 4</content>
<content>AMI > 5 > 4</content>
<content></content> Troponin I Laboratory test result [facility] ([facility]) <content>Troponin I Reference Interval f or Siemens [place] LOCI:</content>
<content></content>
<content>99th Percentile= 0.00-0.045 ng/ml</content>
<content></content>
<content>Risk Stratification:</content>
<content><= 0.10 ng/ml Decreased Risk for Adverse Clinical</content>
<content>Events.</content>
<content>0.10-1.50 ng/ml Increased Risk for Adverse Clinical</content>
<content>Events. Evaluation of additional</content>
<content>criterion and/or repeat testing in 2-6</content>
<content>hours is suggested to rule out myocardial</content>
<content>damage.</content>
<content>>= 1.50 ng/ml Indicative of Myocardial Injury.</content>
<content></content> ID Date Data Source [id number] 06/11/2020 02:40:00 PM EST [facility] ([facility]) Name Value Range Interpretation Code Description Data Jacqui rce(s) Supporting Document(s) Lactate [Mass/volume] in Serum or Plasma 1.3 mmol/L 0.4-2.0 [facility] ([facility]) Y/N query for Sepsis Lactate Rule: Y ID Date Data Source [id number] 06/11/2020 02:40:00 PM EST [facility] ([facility]) Name Value Range Interpretation Code Description Data Jacqui rce(s) Supporting Document(s) White Blood Count 8.8 10 4.0-10.0 [facility] ([facility]) Red Blood Count 3.59 10 4.00-5.40 [facility] ([facility]) Hemoglobin 10.6 g/dL 12.0-15.5 [facility] ([facility]) Hematocrit 34.4 % 36.0-47.0 [facility]) Mean Corpuscular Volume 95.8 fl 80.0-96.0 [facility] ([facility]) Mean Corpuscular HGB Conc 30.8 g/dL 32.0-36.5 [facility] ([facility]) Mean Corpuscular Hemoglobin 29.5 pg 27.0-33.0 [facility] ([facility]) Platelet Count, Automated 125 10 150-450 [facility] ([facility]) Red Cell Distribution Width 15.9 % 11.5-14.5 [facility] ([facility]) Neutrophils % 71.8 % 36.0-66.0 [facility] ([facility]) Creek % 7.4 % 2.0-8.0 [facility]) Lymph % 18.5 % 24.0-44.0 [facility]) Immature Granulocyte % 0.2 % 0-3.0 [facility] ([facility]) Eos % 1.5 % 0.0-3.0 [facility]) Baso % 0.6 % 0.0-1.0 [facility]) Nucleated Red Blood Cell % 0.0 % 0-0 [facility] ([facility]) Lymph # 1.6 10 1.5-5.0 [facility]) Neutrophils # 6.3 10 1.5-8.5 [facility] ([facility]) Baso # 0.1 10 0.0-0.2 [facility]) Eos # 0.1 10 0.0-0.5 [facility]) Creek # 0.7 10 0.0-0.8 [facility]) ID Date Data Source [id number] 06/05/2020 12:00:00 PM EST [facility] Name Value Range Interpretation Code Description Data Jacqui rce(s) Supporting Document(s) SARS coronavirus 2 RNA Not Detected [facility] [place] This lab was ordered by [facility] and reported by [facility]. ID Date Data Source [id number] 05/29/2020 10:30:00 AM EST [facility] Name Value Range Interpretation Code Description Data Jacqui rce(s) Supporting Document(s) SARS coronavirus 2 RNA Not Detected [facility] [place] This lab was ordered by [facility] and reported by [facility]. ID Date Data Source [id number] 05/22/2020 09:15:00 AM EST [facility] Name Value Range Interpretation Code Description Data Jacqui rce(s) Supporting Document(s) SARS coronavirus 2 RNA Not Detected [facility] [place] This lab was ordered by [facility] and reported by [facility]. ID Date Data Source [id number] 05/15/2020 10:00:00 AM EST [facility] Name Value Range Interpretation Code Description Data Jacqui rce(s) Supporting Document(s) SARS coronavirus 2 RNA Not Detected [facility] [place] This lab was ordered by [facility] and reported by [facility]. ID Date Data Source [id number] 05/08/2020 09:52:00 AM EST [facility] Name Value Range Interpretation Code Description Data Jacqui rce(s) Supporting Document(s) SARS coronavirus 2 RNA [Presence] in Res piratory specimen by TIMMY with probe detection NEGATIVE [facility] This lab was ordered by [facility] a nd reported by [facility]. ID Date Data Source [id number] 04/30/2020 12:46:00 PM EST [facility] ([facility]) Name Value Range Interpretation Code Description Data Jacqui rce(s) Supporting Document(s) Influenza B Amplification Laboratory test result [facility] ([facility]) Negative results do not preclude influen za or RSV virus infection and should not be used as the sole basis for treatment or other patient management decisions. Influenza A Amplification Laboratory test result [facility] ([facility]) Negative results do not preclude influen za or RSV virus infection and should not be used as the sole basis for treatment or other patient management decisions. Laboratory test finding (navigational concept) Laboratory test result [facility] ([facility]) A false negative result may occur [...] pathogens. DISCLAIMER: Testing was performed using the [employer] SARS-CoV-2 test. This test was developed and its performance characteristics determined by [employer]. This test has not been FDA cleared [...] sooner. RSV Amplification Laboratory test result [facility] ([facility]) Negative results do not preclude influen za or RSV virus infection and should not be used as the sole basis for treatment or other patient management decisions. ID Date Data Source [id number] 04/30/2020 12:46:00 PM [facility] Name Value Range Interpretation Code Description Data Jacqui rce(s) Supporting Document(s) SARS coronavirus 2 RNA [Presence] in Res piratory specimen by TIMMY with probe detection NEGATIVE [facility] This lab was ordered by [facility] a nd reported by [facility]. ID Date Data Source [id number] 04/30/2020 12:39:00 PM EST [facility] ([facility]) Name Value Range Interpretation Code Description Data Jacqui rce(s) Supporting Document(s) Red Blood Count 2.98 10 4.00-5.40 [facility] ([facility]) White Blood Count 11.1 10 4.0-10.0 [facility] ([facility]) Hematocrit 27.9 % 36.0-47.0 [facility]) Mean Corpuscular Volume 93.6 fl 80.0-96.0 [facility] ([facility]) Hemoglobin 8.2 g/dL 12.0-15.5 [facility] ([facility] Mean Corpuscular Hemoglobin 27.5 pg 27.0-33.0 [facility] ([facility]) Mean Corpuscular HGB Conc 29.4 g/dL 32.0-36.5 [facility] NT ([facility]) Neutrophils % 75.1 % 36.0-66.0 [facility] ([facility]) Red Cell Distribution Width 19.2 % 11.5-14.5 [facility] ([facility]) Platelet Count, Automated 201 10 150-450 [facility] NT ([facility]) Creek % 7.0 % 0.0-5.0 [facility]) Lymph % 14.7 % 24.0-44.0 [facility] Eos % 1.5 % 0.0-3.0 [facility] Immature Granulocyte % 1.2 % 0-3.0 [facility] ([facility]) Baso % 0.5 % 0.0-1.0 [facility] Neutrophils # 8.3 10 1.5-8.5 [facility] ([facility]) Lymph # 1.6 10 1.5-5.0 [facility] Nucleated Red Blood Cell % 0.0 % 0-0 [facility] ([facility]) Creek # 0.8 10 0.0-0.8 [facility]) Baso # 0.1 10 0.0-0.2 [facility] Eos # 0.2 10 0.0-0.5 [facility] ID Date Data Source [id number] 04/30/2020 12:39:00 PM EST [facility] ([facility]) Name Value Range Interpretation Code Description Data Jacqui rce(s) Supporting Document(s) Inr 1.21 [facility] ([facility]) THERAPUTIC HUMAN INR VALUES INDICATIONS NORMAL RANGES PROPHYLAXIS/TREATMENT OF: VENOUS THROMBOSIS 2.0-3.0 PULMONARY EMBOLISM 2.0-3.0 PREVENTION OF SYSTEMIC EMBOLISM FROM: TISSUE HEART VALVES 2.0-3.0 ACUTE MYOCARDIAL INFARCTION 2.0-3.0 VALVULAR HEART DISEASE 2.0-3.0 ATRIAL FIBRILLATION 2.0-3.0 MECHANICAL VALVES(HIGH RISK) 2.5-3.5 RECURRENT MYOCARDIAL INFARCTION 2.5-3.5 Prothrombin Time 15.6 s 12.5-14.3 [facility] ([facility] ID Date Data Source [id number] 04/30/2020 12:39:00 PM EST [facility] ([facility]) Name Value Range Interpretation Code Description Data Jacqui rce(s) Supporting Document(s) aPTT in Blood by Coagulation assay 34.2 s 24.2-38.5 [facility] ([facility]) Lactate [Mass/volume] in Serum or Plasma 0.9 mmol/L 0.4-2.0 [facility] ([facility]) Y/N query for Sepsis Lactate Rule: Y ID Date Data Source [id number] 04/30/2020 12:39:00 PM EST [facility] ([facility]) Name Value Range Interpretation Code Description Data Jacqui rce(s) Supporting Document(s) CPK Creatine Phosphokinase 16 U/L 26-192 [facility] ([facility]) CK-MB Value Mass Laboratory test result [facility] ([facility]) MB/CK Relative Index 6.25 [facility] ([facility] <content>DIAGNOSIS CRITERIA</content>
<content>MMB ng/ml Relative Index (RI)</content>
<content>NON-AMI < or = 5 N/A</content>
<content>LOCKETT ZONE > 5 < or = 4</content>
<content>AMI > 5 > 4</content>
<content></content> Troponin I Laboratory test result [facility] ([facility]) <content>Troponin I Reference Interval f or Siemens [place] LOCI:</content>
<content></content>
<content>99th Percentile= 0.00-0.045 ng/ml</content>
<content></content>
<content>Risk Stratification:</content>
<content><= 0.10 ng/ml Decreased Risk for Adverse Clinical</content>
<content>Events.</content>
<content>0.10-1.50 ng/ml Increased Risk for Adverse Clinical</content>
<content>Events. Evaluation of additional</content>
<content>criterion and/or repeat testing in 2-6</content>
<content>hours is suggested to rule out myocardial</content>
<content>damage.</content>
<content>>= 1.50 ng/ml Indicative of Myocardial Injury.</content>
<content></content> ID Date Data Source [id number] 04/30/2020 12:39:00 PM EST [facility] ([facility]) Name Value Range Interpretation Code Description Data Jacqui rce(s) Supporting Document(s) Alt/SGPT 20 U/L 12-78 [facility] ([facility]) Ast/Sgot 9 U/L 7-37 [facility] ([facility]) Alkaline Phosphatase 80 U/L 45-117 [facility] ([facility]) Total Protein 5.8 GM/DL 6.4-8.2 [facility] ([facility]) Bilirubin,Direct Laboratory test result 0.0-0.2 [facility] ([facility]) Bilirubin,Total 0.2 mg/dL 0.2-1.0 [facility] ([facility]) Albumin/Globulin Ratio 0.4 1.2-2.2 [facility] ([facility]) Albumin 1.7 GM/DL 3.2-5.2 [facility] ([facility]) ID Date Data Source [id number] 04/30/2020 12:39:00 PM EST [facility] ([facility]) Name Value Range Interpretation Code Description Data Jacqui rce(s) Supporting Document(s) Glucose, Fasting 252 mg/dL 70-100 [facility] ([facility]) Blood Urea Nitrogen 60 mg/dL 7-18 [facility] ([facility]) Creatinine For GFR 1.61 mg/dL 0.55-1.30 [facility] ([facility]) Glomerular Filtration Rate 33.5 [facility] ([facility]) <content>Units are mL/min/1.73 m2</content>
<content></content>
<content>Chronic Kidney Disease Staging per NKF:</content>
<content></content>
<content>Stage I & II GFR >=60 Normal to Mildly Decreased</content>
<content>Stage III GFR 30- 59 Moderately Decreased</content>
<content>Stage IV GFR 15-29 Severely Decreased</content>
<content>Stage V GFR <15 Very Little GFR Left</content>
<content>ESRD GFR <15 on PROTOTYPE ENGINEER</content>
<content></content> Sodium Level 140 meq/L 136-145 [facility] ([facility]) Chloride Level 112 meq/L 98-107 [facility] ([facility]) Potassium Serum 4.7 meq/L 3.5-5.1 [facility] ([facility]) Carbon Dioxide Level 21 meq/L 21-32 [facility] ([facility]) Anion Gap 7 meq/L 8-16 [facility] ([facility]) Calcium Level 8.5 mg/dL 8.8-10.2 [facility] ([facility]) ID Date Data Source [id number] 04/30/2020 12:39:00 PM EST [facility] ([facility]) Name Value Range Interpretation Code Description Data Jacqui rce(s) Supporting Document(s) Amylase [Enzymatic activity/volume] in Serum or Plasma 26 U/L 25- 115 [facility] ([facility]) C reactive protein [Mass/volume] in Serum or Plasma by High sensitivity method 8.35 mg/dL 0.00-0.30 [facility] ([facility] ) ID Date Data Source [id number] 04/30/2020 12:39:00 PM EST [facility] ([facility]) Name Value Range Interpretation Code Description Data Jacqui rce(s) Supporting Document(s) Blood Type Laboratory test result [facility] ([facility]) AB Screen (Indirect Tab)Vis Laboratory test result [facility] ([facility]) ID Date Data Source [id number] 04/29/2020 09:30:00 AM EST [facility] Name Value Range Interpretation Code Description Data Jacqui rce(s) Supporting Document(s) SARS coronavirus 2 RNA Not Detected [place] This lab was ordered by [facility] and reported by [facility]. ID Date Data Source [id number] 04/23/2020 09:57:00 AM EST [facility] Name Value Range Interpretation Code Description Data Jacqui rce(s) Supporting Document(s) SARS coronavirus 2 RNA [facility] This lab was ordered by [facility] and reported by [facility]. ID Date Data Source [id number] 04/17/2020 11:00:00 AM EST [facility] Name Value Range Interpretation Code Description Data Jacqui rce(s) Supporting Document(s) SARS coronavirus 2 RNA [facility] This lab was ordered by [facility] and reported by [facility]. ID Date Data Source [id number] 04/11/2020 09:00:00 AM EST [facility] Name Value Range Interpretation Code Description Data Jacqui rce(s) Supporting Document(s) SARS coronavirus 2 RNA [facility] This lab was ordered by [facility] and reported by [facility]. ID Date Data Source [id number] 04/07/2020 01:34:00 PM EST [facility] Name Value Range Interpretation Code Description Data Jacqui rce(s) Supporting Document(s) SARS coronavirus 2 RNA [facility] This lab was ordered by [facility] and reported by [facility]. ID Date Data Source [id number] 03/27/2020 09:24:00 PM EST [facility] Name Value Range Interpretation Code Description Data Jacqui rce(s) Supporting Document(s) SARS coronavirus 2 RNA [Presence] in Res piratory specimen by TIMMY with probe detection [facility] This lab was ordered by [facility] a nd reported by [facility]. ID Date Data Source [id number] 03/27/2020 06:50:00 PM EST [facility] ([facility]) Name Value Range Interpretation Code Description Data Jacqui rce(s) Supporting Document(s) C reactive protein [Mass/volume] in Serum or Plasma by High sensitivity method 5.64 mg/dL 0.00-0.30 [facility] ([facility] ) ID Date Data Source [id number] 03/27/2020 06:50:00 PM EST [facility] ([facility]) Name Value Range Interpretation Code Description Data Jacqui rce(s) Supporting Document(s) Glucose, Fasting 268 mg/dL 70-100 [facility] ([facility]) Creatinine For GFR 1.84 mg/dL 0.55-1.30 [facility] ([facility]) Blood Urea Nitrogen 75 mg/dL 7-18 [facility] ([facility]) Sodium Level 138 meq/L 136-145 [facility] ([facility]) Glomerular Filtration Rate 28.7 [facility] ([facility]) <content>Units are mL/min/1.73 m2</content>
<content></content>
<content>Chronic Kidney Disease Staging per NKF:</content>
<content></content>
<content>Stage I & II GFR >=60 Normal to Mildly Decreased</content>
<content>Stage III GFR 30- 59 Moderately Decreased</content>
<content>Stage IV GFR 15-29 Severely Decreased</content>
<content>Stage V GFR <15 Very Little GFR Left</content>
<content>ESRD GFR <15 on PROTOTYPE ENGINEER</content>
<content></content> Chloride Level 107 meq/L 98-107 [facility] ([facility]) Potassium Serum 4.7 meq/L 3.5-5.1 [facility] ([facility]) Carbon Dioxide Level 26 meq/L 21-32 [facility] ([facility]) Calcium Level 8.3 mg/dL 8.8-10.2 [facility] ([facility]) Ast/Sgot 12 U/L 7-37 [facility]) Anion Gap 5 meq/L 8-16 [facility] ([facility]) Alkaline Phosphatase 83 U/L 45-117 [facility] ([facility]) Bilirubin,Total 0.2 mg/dL 0.2-1.0 [facility] ([facility]) Alt/SGPT 19 U/L 12-78 [facility] ([facility]) Albumin 1.8 GM/DL 3.2-5.2 [facility] ([facility]) Total Protein 6.0 GM/DL 6.4-8.2 [facility] ([facility]) Albumin/Globulin Ratio 0.4 1.2-2.2 [facility] ([facility]) ID Date Data Source [id number] 03/27/2020 06:50:00 PM EST [facility] ([facility]) Name Value Range Interpretation Code Description Data Jacqui rce(s) Supporting Document(s) Erythrocyte sedimentation rate by Westergren method 125 mm/hr 0-30 [facility] ([facility]) ID Date Data Source [id number] 03/27/2020 06:50:00 PM EST [facility] ([facility]) Name Value Range Interpretation Code Description Data Jacqui rce(s) Supporting Document(s) White Blood Count 8.9 10 4.0-10.0 [facility] ([facility]) Red Blood Count 2.98 10 4.00-5.40 [facility] ([facility]) Hematocrit 26.6 % 36.0-47.0 [facility] Hemoglobin 7.7 g/dL 12.0-15.5 [facility] ([facility]) Mean Corpuscular Volume 89.3 fl 80.0-96.0 [facility] ([facility]) Mean Corpuscular HGB Conc 28.9 g/dL 32.0-36.5 [facility] ([facility]) Mean Corpuscular Hemoglobin 25.8 pg 27.0-33.0 [facility] ([facility]) Neutrophils % 70.7 % 36.0-66.0 [facility] ([facility]) Platelet Count, Automated 249 10 150-450 [facility] ([facility]) Red Cell Distribution Width 15.1 % 11.5-14.5 [facility] ([facility]) Lymph % 17.2 % 24.0-44.0 [facility] ([facility]) Creek % 8.2 % 0.0-5.0 [facility] ([facility]) Eos % 1.0 % 0.0-3.0 [facility] ([facility]) Nucleated Red Blood Cell % 0.0 % 0-0 [facility] ([facility]) Baso % 0.8 % 0.0-1.0 [facility] ([facility]) Immature Granulocyte % 2.1 % 0-3.0 [facility] ([facility]) Neutrophils # 6.3 10 1.5-8.5 [facility] ([facility]) Lymph # 1.5 10 1.5-5.0 [facility] ([facility]) Creek # 0.7 10 0.0-0.8 [facility] ([facility]) Eos # 0.1 10 0.0-0.5 [facility] ([facility]) Baso # 0.1 10 0.0-0.2 [facility] ([facility]) ID Date Data Source [id number] 03/20/2020 01:00:00 PM EST [facility] Name Value Range Interpretation Code Description Data Jacqui rce(s) Supporting Document(s) SARS coronavirus 2 RNA [facility] This lab was ordered by [facility] and reported by [facility]. ID Date Data Source [id number] 03/14/2020 06:00:00 AM EST [facility] Name Value Range Interpretation Code Description Data Jacqui rce(s) Supporting Document(s) SARS coronavirus 2 RNA [facility] This lab was ordered by [facility] and reported by [facility]. ID Date Data Source [id number] 03/07/2020 01:30:00 PM EST [facility] Name Value Range Interpretation Code Description Data Jacqui rce(s) Supporting Document(s) SARS coronavirus 2 RNA [facility] This lab was ordered by [facility] and reported by [facility]. ID Date Data Source [id number] 02/21/2020 03:22:00 PM EDT [facility] ([facility]) Name Value Range Interpretation Code Description Data Jacqui rce(s) Supporting Document(s) Ast/Sgot 13 U/L 7-37 [facility] ([facility]) Alt/SGPT 19 U/L 12-78 [facility] ([facility]) Alkaline Phosphatase 75 U/L 45-117 [facility] ([facility]) Bilirubin,Direct 0.1 mg/dL 0.0-0.2 [facility] ([facility]) Bilirubin,Total 0.4 mg/dL 0.2-1.0 [facility] ([facility]) Albumin 2.5 GM/DL 3.2-5.2 [facility] ([facility]) Albumin/Globulin Ratio 0.7 1.2-2.2 [facility] ([facility]) Total Protein 6.1 GM/DL 6.4-8.2 [facility] ([facility]) ID Date Data Source [id number] 02/21/2020 03:22:00 PM EDT [facility] ([facility]) Name Value Range Interpretation Code Description Data Jacqui rce(s) Supporting Document(s) CPK Creatine Phosphokinase 73 U/L 26-192 [facility] ([facility]) CK-MB Value Mass 1.4 ng/mL [facility] ([facility]) Troponin I Laboratory test result [facility] ([facility]) <content>Troponin I Reference Interval f or Siemens [place] LOCI:</content>
<content></content>
<content>99th Percentile= 0.00-0.045 ng/ml</content>
<content></content>
<content>Risk Stratification:</content>
<content><= 0.10 ng/ml Decreased Risk for Adverse Clinical</content>
<content>Events.</content>
<content>0.10-1.50 ng/ml Increased Risk for Adverse Clinical</content>
<content>Events. Evaluation of additional</content>
<content>criterion and/or repeat testing in 2-6</content>
<content>hours is suggested to rule out myocardial</content>
<content>damage.</content>
<content>>= 1.50 ng/ml Indicative of Myocardial Injury.</content>
<content></content> MB/CK Relative Index 1.92 [facility] ([facility]) <content>DIAGNOSIS CRITERIA</content>
<content>MMB ng/ml Relative Index (RI)</content>
<content>NON-AMI < or = 5 N/A</content>
<content>LOCKETT ZONE > 5 < or = 4</content>
<content>AMI > 5 > 4</content>
<content></content> ID Date Data Source [id number] 02/21/2020 03:22:00 PM EDT [facility] ([facility]) Name Value Range Interpretation Code Description Data Jacqui rce(s) Supporting Document(s) Lactate [Mass/volume] in Serum or Plasma 1.0 mmol/L 0.4-2.0 [facility] ([facility]) Y/N query for Sepsis Lactate Rule: Y Procedure Social History Code Duration Value Status Description Data Source(s ) Smoking 06/04/2020 12:00:00 AM EST Former Smoker completed Former Smoker eC ([facility]) Smoking 05/21/2020 12:00:00 AM EST Former Smoker completed Former Smoker eC1 ([facility]) Smoking 05/21/2020 12:00:00 AM EST Former Smoker completed Former Smoker eC ([facility]) Vital Signs ID Date Data Source UNK Name Value Range Interpretation Code Description Data Source(s) Body surface area Derived from formula 2.00 m2 2.00 m2 [facility] ([facility]) Body height 60 [in_i] 60 [in_i] [facility] ([place] [facility] 5[facility] Body weight 234.00 [lb_av] 234.00 [lb_av] HAL T ([facility]) [place] body weight 100 [lb_av] 100 [lb_av] MEDEN T ([facility]) Body weight 106.142 kg 106.142 kg [facility] ([facility]) Body mass index (BMI) [Ratio] 45.7 kg/m2 45.7 k g/m2 [facility] ([facility]) Body height 60 [in_i] 60 [in_i] [facility] ([facility]) 5'0" Body weight 234.00 [lb_av] 234.00 [lb_av] MEDEN T ([facility]) Body mass index (BMI) [Ratio] 45.7 kg/m2 45.7 k g/m2 [facility] ([facility]) [place] body weight 100 [lb_av] 100 [lb_av] MEDEN T ([facility]) Body weight 106.142 kg 106.142 kg [facility] ([facility]) Body surface area Derived from formula 2.00 m2 2.00 m2 [facility] ([facility]) Body weight 233 [lb_av] 233 [lb_av] eCW1 ([facility]) Body height 61.5 [in_i] 61.5 [in_i] eCW1 ([facility]) Body mass index (BMI) [Ratio] 43.31 kg/m2 43.31 kg/m2 eCW1 ([facility]) Heart rate 67 /min 67 /min eCW1 ([facility]) Respiratory rate 18 /min 18 /min eCW1 ([facility]) Body temperature 96.8 [degF] 96.8 [degF] eCW1 ( [facility]) Systolic blood pressure 132 mm[Hg] 132 mm[Hg] e CW1 ([facility]) Diastolic blood pressure 68 mm[Hg] 68 mm[Hg] eCW1 ([facility]) Systolic blood pressure 132 mm[Hg] 132 mm[Hg] [facility] Diastolic blood pressure 72 mm[Hg] 72 mm[Hg] [facility] Heart rate 70 /min 70 /min [facility] [place] Respiratory rate 16 /min 16 /min [facility] Body height 154.9 cm 154.9 cm [facility] Body weight 97.523 kg 97.523 kg [facility] wt reported from 05/22/20 at the facility Body mass index (BMI) [Ratio] 40.62 kg/m2 40.62 kg/m2 [facility] Oxygen saturation in Arterial blood by Pulse oximetry 16 % 16 % [facility] Body height 61.5 [in_i] 61.5 [in_i] eCW1 ([facility]) Body weight 233 [lb_av] 233 [lb_av] eCW1 ([facility]) Body mass index (BMI) [Ratio] 43.31 kg/m2 43.31 kg/m2 W1 ([facility]) Heart rate 75 /min 75 /min eCW1 ([facility]) Respiratory rate 20 /min 20 /min eCW1 ([facility]) Body temperature 96.4 [degF] 96.4 [degF] eCW1 ( [facility]) Systolic blood pressure 130 mm[Hg] 130 mm[Hg] e CW1 ([facility]) Diastolic blood pressure 72 mm[Hg] 72 mm[Hg] eCW1 ([facility]) Patient Treatment Plan of Care Planned Activity Planned Date Details Description Data Source (s) 3 ML Insulin Lispro 100 UNT/ML Pen Injector [Humalog] 03/23/2020 12:00:[address] [facility] Spironolactone 25 MG Oral Tablet 03/14/2020 12:00:00 AM EST [facility] pantoprazole 40 MG Delayed Release Oral Tablet 03/10/2020 12:00:00 AM EST [facility] clopidogrel 75 MG Oral Tablet 03/08/2020 12:00:00 AM EST [facility] atorvastatin 40 MG Oral Tablet 03/08/2020 12:00:00 AM EST [facility] Fluoxetine 10 MG Oral Capsule 03/08/2020 12:00:00 AM EST [facility] Hydralazine Hydrochloride 50 MG Oral Tablet 03/08/2020 12:00:00 AM EST [facility] Isosorbide Dinitrate 20 MG Oral Tablet 03/08/2020 12:00:00 AM EST [facility] ferrous gluconate 324 MG Oral Tablet 03/03/2020 12:00:00 AM EST [facility] Ondansetron 4 MG Oral Tablet 03/03/2020 12:00:00 AM EST [facility] Hydralazine Hydrochloride 100 MG Oral Tablet [facility]
--- OUTSIDE RECORDS SUMMARY | 2021-02-23 16:50 | CCD ---
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 Name Role Phone Fish, B Avery FARFAN [...] Fish, B Avery FARFAN Unavailable Unavailable Fish, [facility], PA-C Unavailable Unavailabl e Fish, [facility], PA-C Unavailable Unavailabl e Fish, [facility], PA-C Unavailable Unavailabl e Fish, [facility], PA-C Unavailable Unavailabl e Fish, [facility], PA-C Unavailable Unavailabl e Fish, [facility], PA-C Unavailable Unavailabl e Fish, [facility], PA-C Unavailable Unavailabl e Fish, [facility], PA-C Unavailable Unavailabl e Fish, [facility], PA-C Unavailable Unavailabl e Fish, [facility], PA-C Unavailable Unavailabl e Fish, [facility], PA-C Unavailable Unavailabl e Fish, [facility], PA-C Unavailable Unavailabl e Fish, [facility], PA-C Unavailable Unavailabl e Fish, [facility], PA-C Unavailable Unavailabl e Fish, [facility], PA-C Unavailable Unavailabl e Fish, [facility], PA-C Unavailable Unavailabl e Fish, [facility], PA-C Unavailable Unavailabl e Fish, [facility], PA-C Unavailable Unavailabl e Fish, [facility], PA-C Unavailable Unavailabl e Fish, [facility], PA-C Unavailable Unavailabl e Fish, [facility], PA-C Unavailable Unavailabl e Fish, [facility], PA-C Unavailable Unavailabl e Fish, [facility], PA-C Unavailable Unavailabl e Fish, [facility], PA-C Unavailable Unavailabl e Fish, [facility], PA-C Unavailable Unavailabl e Fish, [facility], PA-C Unavailable Unavailabl e Fish, [facility], PA-C Unavailable Unavailabl e Fish, [facility], PA-C Unavailable Unavailabl e Fish, [facility], PA-C Unavailable Unavailabl e Fish, [facility], PA-C Unavailable Unavailabl e Fish, [facility], PA-C Unavailable Unavailabl e Fish, [facility], PA-C Unavailable Unavailabl e Fish, [facility], PA-C Unavailable Unavailabl e Fish, [facility], PA-C Unavailable Unavailabl e Fish, [facility], PA-C Unavailable Unavailabl e Fish, [facility], PA-C Unavailable Unavailabl e Kourtney, N Pramod NEWSPAPER VENDOR Unavailable Unavailable Kourt[place], N Pramod NEWSPAPER VENDOR Unavailable Unavailable [place], N Pramod NEWSPAPER VENDOR Unavailable Unavailable [place], N Pramod NEWSPAPER VENDOR Unavailable Unavailable [place], N Pramod NEWSPAPER VENDOR Unavailable Unavailable [place], N Pramod NEWSPAPER VENDOR Unavailable Unavailable [place]ourt[place], N Pramod NEWSPAPER VENDOR Unavailable Unavailable [place], N Pramod NEWSPAPER VENDOR Unavailable Unavailable [place], N Pramod NEWSPAPER VENDOR Unavailable Unavailable [place], N Pramod NEWSPAPER VENDOR Unavailable Unavailable [place], N Pramod NEWSPAPER VENDOR Unavailable Unavailable [place], N Pramod NEWSPAPER VENDOR Unavailable Unavailable [place], N Pramod NEWSPAPER VENDOR Unavailable Unavailable [place], N Pramod NEWSPAPER VENDOR Unavailable Unavailable [place], N Pramod NEWSPAPER VENDOR Unavailable Unavailable [place], N Pramod NEWSPAPER VENDOR Unavailable Unavailable [place], N Pramod NEWSPAPER VENDOR Unavailable Unavailable [place], N Pramod NEWSPAPER VENDOR Unavailable Unavailable [place], N Pramod NEWSPAPER VENDOR Unavailable Unavailable [place], N Pramod NEWSPAPER VENDOR Unavailable Unavailable [place], N Pramod NEWSPAPER VENDOR Unavailable Unavailable [place], N Pramod NEWSPAPER VENDOR Unavailable Unavailable [place], N Pramod NEWSPAPER VENDOR Unavailable Unavailable [place], N Pramod NEWSPAPER VENDOR Unavailable Unavailable [place], N Pramod NEWSPAPER VENDOR Unavailable Unavailable [place], N Pramod NEWSPAPER VENDOR Unavailable Unavailable [place], N Pramod NEWSPAPER VENDOR Unavailable Unavailable [place], N Pramod NEWSPAPER VENDOR Unavailable Unavailable [place], N Pramod NEWSPAPER VENDOR Unavailable Unavailable [place], N Pramod NEWSPAPER VENDOR Unavailable Unavailable [place], N Pramod NEWSPAPER VENDOR Unavailable Unavailable [place], N Pramod NEWSPAPER VENDOR Unavailable Unavailable [place], N Pramod NEWSPAPER VENDOR Unavailable Unavailable Ela HERNANDEZ MD Unavailable Unavailable [...] is protected by Article 27-F of the [facility] Public Health law. If you continue you may have access to information: Regarding HIV / AIDS; Provided by facilities licensed or operated by the [facility] Office of Mental Health; or Provided by the [facility] Office for People With Developmental Disabilities. If such information is present, then the following [facility] mandated warning applies: This information has [...] law may result in a fine or assisted sentence or both. A general authorization for the release of medical or other information is NOT sufficient authorization for further disc losure. Encounters Encounter Providers Location Date Indications Data Source(s ) Outpatient Attender: TATO Thornton/Imelda/Guero montelongo/Nicko 07/26/2020 10:30:00 AM EDT [facility] ([facility]) OFFICE OUTPATIENT VISIT 15 MINUTES Attender: Avery Butcher MD Phys ical Therapy 07/09/2020 01:00:00 PM EDT [facility] ([facility]) OFFICE OUTPATIENT VISIT 15 MINUTES Attender: Ellie KELLEY PA-C Physical Therapy 07/02/2020 09:30:00 AM EST [facility] ([facility]) TeleMedicine Est. Pt. Level 4 [address] [place] [address] 06/04/2020 12:00:00 AM EST eCW1 ([facility]) Outpatient Attender: Pramod RIZVIP.DARIA-SJP.DARIA 021 12:00:00 AM EST - 05/27/2020 11:30:15 AM EST [facility] TeleMedicine Phone E/M by Phys 21-30 Min [address] [place] [address] 05/21/2020 12:00:00 AM EST eCW1 ([facility]) Unknown [address] [facility] [address] 05/21/2020 12:00:00 AM EST eCW1 ([facility]) Outpatient Attender: Avery Butcher MD Physical Therapy 05/09/2020 0 3:09:00 PM EST [facility] ([facility]) Immunizations Vaccine Date Status Description Data Source(s) COVID-19 VACCINE Pfizer 05/20/2020 12:00:00 AM EST completed [facility] Vaccine Series Complete: YESThis Data wa s Submitted to [facility] Via [employer]. COVID-19 VACCINE Pfizer 04/29/2020 12:00:00 AM EST completed [facility] Vaccine Series Complete: NOThis Data was Submitted to [facility] Via [employer]. Medications Medication Brand Name Start Date Product [...] Clenpiq 11/06/2020 12:00:00 AM EDT active [facility] ([facility]) Bisacodyl 5 MG Delayed Release Oral Tablet [Dulcolax] Dulcol ax 11/06/2020 12:00:00 AM EDT active M Y[facility]ONNE ([facility], ) 100 unit/mL (3 mL) 04/06/2020 12:00:00 AM EST insulin pen 3 INJECT 40UNITS UNDER THE SKIN IN THE MORNING INJECT 40UNITS UNDER THE SKIN IN THE MORNING SOLD: 04/06/2020 [facility] 3 ML Insulin Lispro 100 UNT/ML Pen Injec tor [Humalog] HUMALOG KWIKPEN 100 UNIT/ML SOPN HUMALOG KWIKPEN 100 UNIT/ML SOPN 03/23/2020 12:00:00 AM EST active [facility] Spironolactone 25 MG Oral Tablet spironolactone (ALDAC TONE) 25 MG tablet spironolactone (ALDACTONE) 25 MG tablet 03/14/2020 12:00:00 AM EST active [facility] pantoprazole 40 MG Delayed Release Oral Tablet pantoprazole (PROTONIX) 40 MG tablet pantoprazole (PROTONIX) 40 MG tablet 03/10/2020 12:00:00 AM EST active [facility] pantoprazole 40 MG Delayed Release Oral Tablet PANTOPRAZOLE SODIUM 03/10/2020 12:00:00 AM EST tablet,delayed release (DR/EC) 1 T CAYETANO ONE TABLET BY MOUTH TWICE A DAY TAKE ONE TABLET BY MOUTH TWICE A DAY SOLD: 03/10/2020 [facility] clopidogrel 75 MG Oral Tablet clopidogrel (PLAVIX) 75 MG tablet clopidogrel (PLAVIX) 75 MG tablet 03/08/2020 12:00:00 AM EST a ctive [facility] atorvastatin 40 MG Oral Tablet atorvastatin (LIPITOR) 40 MG tablet atorvastatin (LIPITOR) 40 MG tablet 03/08/2020 12:00:00 AM EST active [facility] Fluoxetine 10 MG Oral Capsule FLUoxetine (PROZAC) 10 M G capsule FLUoxetine (PROZAC) 10 MG capsule 03/08/2020 12:00:00 AM EST 30 mg active 30 mg [facility] Hydralazine Hydrochloride 50 MG Oral Tab let hydrALAZINE (APRESOLINE) 50 MG tablet hydrALAZINE (APRESOLINE) 50 MG tablet 03/08/2020 12:00:00 AM EST active [facility] Isosorbide Dinitrate 20 MG Oral Tablet i sosorbide dinitrate (ISORDIL) 20 MG tablet isosorbide dinitrate (ISORDIL) 20 MG tablet 03/08/2020 12:00:00 AM EST active [facility] ferrous gluconate 324 MG Oral Tablet ferrous gluconate (FERGON) 324 MG tablet ferrous gluconate (FERGON) 324 MG tablet 03/03/2020 12:00:00 AM EST active TAKE ONE TABLET BY MOUTH EVERY D AY START TODAY [facility] 324 mg (38 mg iron) 03/03/2020 [...] tablet 03/03/2020 12:00:00 AM EST ac tive [facility] Cephalexin 500 MG Oral Capsule CEPHALEXIN [...] by mouth 3 (three) times a day [facility] Insurance Providers Payer name Policy type / Coverage type Policy ID Covered republican ID Covered republican's relationship to martinez Policy Martinez Plan Information MEDICARE [id number] [facility] [id number] N49 MEDICARE [id number] xxxxxxxxxxx [id number] Ghi/Beatriz [facility] (pr) Commercial [id number] Self [id number] Ghi/[employer] [facility] (pr) Commercial [id number] Self [id number] [facility] (pr) Commercial [id number] Self [id number] [facility] (pr) Commercial [id number] Self EMEDNY [id number] SP [id number] [employer] [id number] SP [id number] [facility] [id number] SP [id number] [employer] [id number] MEDICAID [id number] S [id number] MEDICARE C [id number] S [id number] [id number] [facility] [id number] SP [id number] MEDICAID [id number] SP [id number] [employer] [id number] SP [id number] MEDICARE [id number] [facility] MEDICAID [id number] SP [id number] H MEDICARE [id number] SP [id number] A MEDICARE [id number] SP [id number] GHI FEDERAL [id number] SP [id number] MEDICARE [id number] SP [id number] A MEDICAID -O/P [id number] MEDICARE PART A -O/P [id number] 18 [id number] G[facility] -O/P [id number] 18 [id number] [facility] [id number] SP [id number] [facility] O [id number] S [id number] [facility] [id number] SP [id number] MEDICARE [id number] SP [id number] A MEDICARE - [facility] [id number] S [id number] GHI COMM CONTR [id number] S [id number] [employer] [id number] SP [id number] GHI FEDERAL [id number] [facility] [id number] SP [id number] MEDICARE [id number] SP [id number] N49 MEDICARE [id number] SP [id number] N49 [facility] [id number] SP [id number] [facility] [id number] SP [id number] Problems, Conditions, and Diagnoses Code Display Name Description Problem Type Effective Dates Data Source(s) I10 Essential (primary) hypertension Essential (primary) h ypertension Diagnosis 05/27/2020 10:51:42 AM EST [facility] R60.0 Localized edema Localized edema Diagnosis 05/27/2020 10:5 1:42 AM EST [facility] [id number] Type 2 diabetes mellitus Type 2 diabetes mellitus Prob denzel 07/02/2020 12:00:00 AM EST [facility] ([facility] L89.620 [id number] Decubitus ulcer, heel, left, unstageable Problem 05/21/2020 12:00:00 AM EST eCW1 ([facility]) Z22.322 [id number] MRSA (methicillin resistant stap h aureus) culture positive Problem 05/21/2020 12:00:00 AM EST eCW1 ([facility]) M86.271 [id number] Subacute osteomyelitis of right foot Problem 05/21/2020 12:00:00 AM EST eCW1 ([facility]) Surgeries/Procedures Procedure Description Date Indications Data Source(s) Colonoscopy Flexible Proximal To Splenic Flexure W/Biopsy Si ngle/ 12/05/2020 12:00:00 AM EDT [facility] ([facility], ) Colonoscopy W/ Poly 12/05/2020 12:00:00 AM EDT [facility] ([facility], ) OFFICE OUTPATIENT VISIT 25 MINUTES 07/26/2020 12:00:00 AM EDT [facility] ([facility], ) INCISION & DRAINAGE ABSCESS SIMPLE/SINGLE 05/09/2020 1 2:00:00 AM EST [facility] ([facility]) Results ID Date Data Source [id number] 12/05/2020 10:59:00 AM EDT [facility] Name Value Range Interpretation Code Description Data Jacqui rce(s) Supporting Document(s) Surgical pathology study Laboratory test result [facility] ([facility], ) FINAL DIAGNOSIS Cecal polyp, polypectomy: [...] MD 12/06/2020 1201 ID Date Data Source [id number] 12/02/2020 09:30:00 AM EDT [facility] Name Value Range Interpretation Code Description Data Jacqui rce(s) Supporting Document(s) SARS coronavirus 2 RNA [Presence] in Res piratory specimen by TIMMY with probe detection NEGATIVE [facility] This lab was ordered by [facility] a nd reported by [facility]. ID Date Data Source [id number] 09/05/2020 12:00:00 AM EDT [facility] Name Value Range Interpretation Code Description Data Jacqui rce(s) Supporting Document(s) SARS-CoV2 Rapid Antigen Negative [facility] This lab was ordered by [facility] and reported by [facility]. ID Date Data Source [id number] 08/21/2020 09:42:00 AM EDT [facility] Name Value Range Interpretation Code Description Data Jacqui rce(s) Supporting Document(s) SARS coronavirus 2 RNA [Presence] in Res piratory specimen by TIMMY with probe detection NEGATIVE [facility] This lab was ordered by [facility] a nd reported by [facility]. ID Date Data Source [id number] 08/08/2020 12:18:00 PM EDT [facility] Name Value Range Interpretation Code Description Data Jacqui rce(s) Supporting Document(s) SARS coronavirus 2 RNA [Presence] in Res piratory specimen by TIMMY with probe detection NEGATIVE [facility] This lab was ordered by [facility] a nd reported by [facility]. ID Date Data Source [id number] 08/03/2020 02:03:00 AM EDT [facility] Name Value Range Interpretation Code Description Data Jacqui rce(s) Supporting Document(s) SARS coronavirus 2 RNA [Presence] in Res piratory specimen by TIMMY with probe detection NEGATIVE [facility] This lab was ordered by [facility] a nd reported by [facility]. ID Date Data Source [id number]/02/2020 12:00:00 AM EDT [facility] Name Value Range Interpretation Code Description Data Jacqui rce(s) Supporting Document(s) SARS coronavirus 2 Ag Negative [facility] This lab was ordered by [facility] and reported by [facility]. ID Date Data Source [id number] 08/01/2020 11:00:00 AM EDT [facility] Name Value Range Interpretation Code Description Data Jacqui rce(s) Supporting Document(s) SARS-CoV-2 (COVID 19) NEGATIVE - SARS-CoV-2 (COVID19) [facility] This lab was ordered by [facility] a nd reported by [facility]. ID Date Data Source [id number] 07/26/2020 12:00:00 AM EDT [facility] Name Value Range Interpretation Code Description Data Jacqui rce(s) Supporting Document(s) SARS-CoV2 Rapid Antigen Negative [facility] This lab was ordered by [facility] and reported by [facility]. ID Date Data Source [id number] 07/03/2020 08:30:00 AM EST [facility] Name Value Range Interpretation Code Description Data Jacqui rce(s) Supporting Document(s) SARS coronavirus 2 RNA Not Detected [facility] This lab was ordered by [facility] and reported by [facility]. ID Date Data Source [id number] 06/26/2020 01:00:00 PM EST [facility] Name Value Range Interpretation Code Description Data Jacqui rce(s) Supporting Document(s) SARS coronavirus 2 RNA Not Detected [facility] This lab was ordered by [facility] and reported by [facility]. ID Date Data Source [id number] 06/19/2020 12:50:00 PM EST [facility] Name Value Range Interpretation Code Description Data Jacqui rce(s) Supporting Document(s) SARS coronavirus 2 RNA Not Detected [facility] [place] This lab was ordered by [facility] and reported by [facility]. ID Date Data Source [id number] 2020 08:31:00 AM EST [facility] Name Value Range Interpretation Code Description Data Jacqui rce(s) Supporting Document(s) SARS coronavirus 2 RNA [Presence] in Res piratory specimen by TIMMY with probe detection NEGATIVE [facility] This lab was ordered by [facility] a nd reported by [facility]. ID Date Data Source [id number] 06/14/2020 10:10:00 AM EST [facility] Name Value Range Interpretation Code Description Data Jacqui rce(s) Supporting Document(s) SARS-CoV-2 (COVID 19) NEGATIVE - SARS-CoV-2 (COVID19) [facility] This lab was ordered by [facility] a nd reported by [facility]. ID Date Data Source [id number] 06/11/2020 06:42:00 PM EST [facility] Name Value Range Interpretation Code Description Data Jacqui rce(s) Supporting Document(s) SARS coronavirus 2 RNA [Presence] in Res piratory specimen by TIMMY with probe detection NEGATIVE [facility] This lab was ordered by [facility] a nd reported by [facility]. ID Date Data Source [id number] 06/11/2020 04:19:00 PM EST [facility] Name Value Range Interpretation Code Description Data Jacqui rce(s) Supporting Document(s) Appearance, Urine RFX Laboratory test result [facility] ([facility]) Color, Urine RFX Laboratory test result [facility] ([facility]) Protein, Urine Auto RFX Laboratory test result [facility] Specific [place] Ur Auto RFX 1.013 1.002-1.035 [facility] ([facility]) PH,Urine RFX 5.0 units 5.0-9.0 [facility] ([facility]) Ketone, Urine Auto RFX Laboratory test result [facility]) Glucose, Urine (Ua) Auto RFX Laboratory test result [facility] ([facility]) Urobilinogen, Urine Auto RFX 0.2 mg/dL 0.0-2.0 [facility] ([facility]) Bilirubin, Urine Auto RFX Laboratory test result [facility] Nitrite, Urine Auto RFX Laboratory test result [facility] ([facility]) Leukocyte Esterase Ur Auto RFX Laboratory test result [facility]) Blood, Urine Blood RFX Laboratory test result [facility]) WBC, Urine Auto RFX 2 /HPF 0-3 [facility] ([facility] RBC, Urine Auto RFX 3 /HPF 0-3 [facility] ([facility] Squam Epithelial Cell Ur Aurfx 2 /HPF 0-6 [facility] ([facility]) Bacteria, Urine Auto RFX Laboratory test result [facility] ([facility]) Hyaline Cast, Urine Auto RFX 0 /LPF 0-1 M [facility] ([facility]) ID Date Data Source [id number] 06/11/2020 02:41:00 PM EST [facility] ([facility]) Name Value Range Interpretation Code Description Data Jacqui rce(s) Supporting Document(s) Ammonia [Mass/volume] in Blood 11 uMOL/L [facility] ID Date Data Source [id number] 06/11/2020 02:41:00 PM EST [facility] ([facility]) Name Value Range Interpretation Code Description Data Jacqui rce(s) Supporting Document(s) Venous PH 7.377 units 7.330-7.430 [facility]) Venous Partial Pressure Co2 52.1 mmHg 38.0-50.0 [facility] ([facility]) Venous Partial Pressure O2 72.1 mmHg 30.0-50.0 [facility] ([facility]) Venous Total Co2 31.5 meq/L 24.0-28.0 [facility] ([facility]) Venous Hco3 29.9 meq/L 23.0-27.0 [facility] ([facility]) Venous O2 Saturation 94.3 % 60.0-80.0 [facility] ([facility]) Venous Base Excess 3.8 [facility] Venous Standard Hco3 27.8 meq/L [facility] ( [facility]) ID Date Data Source [id number] 06/11/2020 02:40:00 PM EST [facility] ([facility] Name Value Range Interpretation Code Description Data Jacqui rce(s) Supporting Document(s) Osmolality of Serum or Plasma 347 MOSM/KG 280-301 [facility] ([facility] Natriuretic peptide.B prohormone N-Terminal [Mass/volu me] in Serum or Plasma 1582 pg/mL [facility] ([facility] ) Thyrotropin [Units/volume] in Serum or Plasma by Detec tion limit <= 0.05 mIU/L 0.513 uIU/ML 0.358-3.740 [facility] ID Date Data Source [id number] 06/11/2020 02:40:00 PM EST [facility] ([facility] Name Value Range Interpretation Code Description Data Jacqui rce(s) Supporting Document(s) Glucose, Fasting 285 mg/dL 70-100 [facility] ([facility]) Blood Urea Nitrogen 117 mg/dL 7-18 [facility] ([facility]) Glomerular Filtration Rate 29.6 [facility] ([facility]) <content>Units are mL/min/1.73 m2</content>
<content></content>
<content>Chronic Kidney Disease Staging per NKF:</content>
<content></content>
<content>Stage I & II GFR >=60 Normal to Mildly Decreased</content>
<content>Stage III GFR 30- 59 Moderately Decreased</content>
<content>Stage IV GFR 15-29 Severely Decreased</content>
<content>Stage V GFR <15 Very Little GFR Left</content>
<content>ESRD GFR <15 on TRAFFIC CONTROL SUPERVISOR</content>
<content></content> Creatinine For GFR 1.79 mg/dL 0.55-1.30 [facility] ([facility]) Potassium Serum 4.2 meq/L 3.5-5.1 [facility] ([facility]) Chloride Level 107 meq/L 98-107 [facility] ([facility]) Sodium Level 145 meq/L 136-145 [facility] ([facility]) Anion Gap 5 meq/L 8-16 [facility] ([place] [facility] Carbon Dioxide Level 33 meq/L 21-32 [facility] ([facility] Calcium Level 10.6 mg/dL 8.8-10.2 [facility] ([facility]) ID Date Data Source [id number] 06/11/2020 02:40:00 PM EST [facility] ([facility] Name Value Range Interpretation Code Description Data Jacqui rce(s) Supporting Document(s) Ast/Sgot 11 U/L 7-37 [facility] ([facility] Alkaline Phosphatase 84 U/L 45-117 [facility] Alt/SGPT 28 U/L 12-78 [facility] ([facility]) Bilirubin,Total 0.2 mg/dL 0.2-1.0 [facility] ([facility]) Total Protein 5.5 GM/DL 6.4-8.2 [facility] ([facility]) Bilirubin,Direct Laboratory test result 0.0-0.2 [facility] ([facility] Albumin 2.9 [facility].2[facility] Albumin/Globulin Ratio 1.1 1.2-2.2 [facility] ([facility]) ID Date Data Source [id number] 06/11/2020 02:40:00 PM EST [facility] ([facility] Name Value Range Interpretation Code Description Data Jacqui rce(s) Supporting Document(s) CK-MB Value Mass Laboratory test result [facility] ([facility]) CPK Creatine Phosphokinase 15 U/L 26-192 [facility] ([facility]) MB/CK Relative Index 6.67 [facility] ([facility]) <content>DIAGNOSIS CRITERIA</content>
<content>MMB ng/ml Relative Index (RI)</content>
<content>NON-AMI < or = 5 N/A</content>
<content>LOCKETT ZONE > 5 < or = 4</content>
<content>AMI > 5 > 4</content>
<content></content> [facility] <content>Troponin I Reference Interval f or Siemens [place] LOCI:</content>
<content></content>
<content>99th Percentile= 0.00-0.045 ng/ml</content>
<content></content>
<content>Risk Stratification:</content>
<content><= 0.10 ng/ml Decreased Risk for Adverse Clinical</content>
<content>Events.</content>
<content>0.10-1.50 ng/ml Increased Risk for Adverse Clinical</content>
<content>Events. Evaluation of additional</content>
<content>criterion and/or repeat testing in 2-6</content>
<content>hours is suggested to rule out myocardial</content>
<content>damage.</content>
<content>>= 1.50 ng/ml Indicative of Myocardial Injury.</content>
<content></content> ID Date Data Source [id number] 06/11/2020 02:40:00 PM EST [facility] ([facility]) Name Value Range Interpretation Code Description Data Jacqui rce(s) Supporting Document(s) Lactate [Mass/volume] in Serum or Plasma 1.3 mmol/L 0.4-2.0 [facility] Y/N query for Sepsis Lactate Rule: Y ID Date Data Source [id number] 06/11/2020 02:40:00 PM EST [facility] ([facility]) Name Value Range Interpretation Code Description Data Jacqui rce(s) Supporting Document(s) White Blood Count 8.8 10 4.0-10.0 [facility] ([facility]) Red Blood Count 3.59 10 4.00-5.40 [facility] ([facility]) Hemoglobin 10.6 g/dL 12.0-15.5 [facility] ([facility] Hematocrit 34.4 % 36.0-47.0 [facility] Mean Corpuscular Volume 95.8 fl 80.0-96.0 [facility] ([facility]) Mean Corpuscular HGB Conc 30.8 g/dL 32.0-36.5 [facility] NT ([facility]) Mean Corpuscular Hemoglobin 29.5 pg 27.0-33.0 [facility] ([facility]) Platelet Count, Automated 125 10 150-450 [facility] ([facility]) Red Cell Distribution Width 15.9 % 11.5-14.5 [facility] ([facility]) Neutrophils % 71.8 % 36.0-66.0 [facility] ([facility]) [place] % 7.4 % 2.0-8.0 [facility]) Lymph % 18.5 % 24.0-44.0 [facility]) Immature Granulocyte % 0.2 % 0-3.0 [facility] ([facility]) Eos % 1.5 % 0.0-3.0 [facility]) Baso % 0.6 % 0.0-1.0 [facility]) Nucleated Red Blood Cell % 0.0 % 0-0 [facility] ([facility]) Lymph # 1.6 10 1.5-5.0 [facility]) Neutrophils # 6.3 10 1.5-8.5 [facility] ([facility]) Baso # 0.1 10 0.0-0.2 [facility] Eos # 0.1 10 0.0-0.5 [facility]) [place] # 0.7 10 0.0-0.8 [facility]) ID Date Data Source [id number] 06/05/2020 12:00:00 PM EST [facility] Name Value Range Interpretation Code Description Data Jacqui rce(s) Supporting Document(s) SARS coronavirus 2 RNA Not Detected [facility] [place] This lab was ordered by [facility] and reported by [facility]. ID Date Data Source [id number] 05/29/2020 10:30:00 AM EST [facility] Name Value Range Interpretation Code Description Data Jacqui rce(s) Supporting Document(s) SARS coronavirus 2 RNA Not Detected [facility] [place] This lab was ordered by [facility] and reported by [facility]. ID Date Data Source [id number] 05/22/2020 09:15:00 AM EST [facility] Name Value Range Interpretation Code Description Data Jacqui rce(s) Supporting Document(s) SARS coronavirus 2 RNA Not Detected [facility] [place] This lab was ordered by [facility] and reported by [facility]. ID Date Data Source [id number] 05/15/2020 10:00:00 AM EST [facility] Name Value Range Interpretation Code Description Data Jacqui rce(s) Supporting Document(s) SARS coronavirus 2 RNA Not Detected [facility] [place] This lab was ordered by [facility] and reported by [facility]. ID Date Data Source [id number] 05/08/2020 09:52:00 AM EST [facility] Name Value Range Interpretation Code Description Data Jacqui rce(s) Supporting Document(s) SARS coronavirus 2 RNA [Presence] in Res piratory specimen by TIMMY with probe detection NEGATIVE [facility] This lab was ordered by [facility] a nd reported by [facility]. ID Date Data Source [id number] 04/30/2020 12:46:00 PM EST [facility] ([facility]) Name Value Range Interpretation Code Description Data Jacqui rce(s) Supporting Document(s) Influenza B Amplification Laboratory test result [facility] ([facility]) Negative results do not preclude influen za or RSV virus infection and should not be used as the sole basis for treatment or other patient management decisions. Influenza A Amplification Laboratory test result [facility] ([facility]) Negative results do not preclude influen za or RSV virus infection and should not be used as the sole basis for treatment or other patient management decisions. Laboratory test finding (navigational concept) Laboratory test result [facility] ([facility]) A false negative result may occur [...] pathogens. DISCLAIMER: Testing was performed using the [employer] SARS-CoV-2 test. This test was developed and its performance characteristics determined by [employer]. This test has not been FDA cleared [...] sooner. RSV Amplification Laboratory test result [facility] ([facility]) Negative results do not preclude influen za or RSV virus infection and should not be used as the sole basis for treatment or other patient management decisions. ID Date Data Source [id number] 04/30/2020 12:46:[facility] Name Value Range Interpretation Code Description Data Jacqui rce(s) Supporting Document(s) SARS coronavirus 2 RNA [Presence] in Res piratory specimen by TIMMY with probe detection NEGATIVE [facility] This lab was ordered by [facility] a nd reported by [facility]. ID Date Data Source [id number] 04/30/2020 12:39:00 PM EST [facility] ([facility]) Name Value Range Interpretation Code Description Data Jacqui rce(s) Supporting Document(s) Red Blood Count 2.98 10 4.00-5.40 [facility] ([facility]) White Blood Count 11.1 10 4.0-10.0 [facility] ([facility]) Hematocrit 27.9 % 36.0-47.0 [facility] Mean Corpuscular Volume 93.6 fl 80.0-96.0 [facility] ([facility]) Hemoglobin 8.2 g/dL 12.0-15.5 [facility] Mean Corpuscular Hemoglobin 27.5 pg 27.0-33.0 [facility] ([facility]) Mean Corpuscular HGB Conc 29.4 g/dL 32.0-36.5 [facility] NT ([facility]) Neutrophils % 75.1 % 36.0-66.0 [facility] ([facility]) Red Cell Distribution Width 19.2 % 11.5-14.5 [facility] ([facility]) Platelet Count, Automated 201 10 150-450 [facility] NT ([facility]) [place] % 7.0 % 0.0-5.0 [facility]) Lymph % 14.7 % 24.0-44.0 [facility] Eos % 1.5 % 0.0-3.0 [facility] Immature Granulocyte % 1.2 % 0-3.0 [facility] ([facility]) Baso % 0.5 % 0.0-1.0 [facility] Neutrophils # 8.3 10 1.5-8.5 [facility] ([facility]) Lymph # 1.6 10 1.5-5.0 [facility] [facility] Nucleated Red Blood Cell % 0.0 % 0-0 [facility] ([facility]) [place] # 0.8 10 0.0-0.8 [facility]) Baso # 0.1 10 0.0-0.2 [facility] Eos # 0.2 10 0.0-0.5 [facility] ID Date Data Source [id number] 04/30/2020 12:39:00 PM EST [facility] ([facility]) Name Value Range Interpretation Code Description Data Jacqui rce(s) Supporting Document(s) Inr 1.21 [facility] ([facility]) THERAPUTIC HUMAN INR VALUES INDICATIONS NORMAL RANGES PROPHYLAXIS/TREATMENT OF: VENOUS THROMBOSIS 2.0-3.0 PULMONARY EMBOLISM 2.0-3.0 PREVENTION OF SYSTEMIC EMBOLISM FROM: TISSUE HEART VALVES 2.0-3.0 ACUTE MYOCARDIAL INFARCTION 2.0-3.0 VALVULAR HEART DISEASE 2.0-3.0 ATRIAL FIBRILLATION 2.0-3.0 MECHANICAL VALVES(HIGH RISK) 2.5-3.5 RECURRENT MYOCARDIAL INFARCTION 2.5-3.5 Prothrombin Time 15.6 s 12.5-14.3 [facility] ([facility]) ID Date Data Source [id number] 04/30/2020 12:39:00 PM EST [facility] ([facility]) Name Value Range Interpretation Code Description Data Jacqui rce(s) Supporting Document(s) aPTT in Blood by Coagulation assay 34.2 s 24.2-38.5 [facility] ([facility]) Lactate [Mass/volume] in Serum or Plasma 0.9 mmol/L 0.4-2.0 [facility] ([facility]) Y/N query for Sepsis Lactate Rule: Y ID Date Data Source [id number] 04/30/2020 12:39:00 PM EST [facility] ([facility]) Name Value Range Interpretation Code Description Data Jacqui rce(s) Supporting Document(s) CPK Creatine Phosphokinase 16 U/L 26-192 [facility] ([facility]) CK-MB Value Mass Laboratory test result [facility] ([facility]) MB/CK Relative Index 6.25 [facility] ([facility]) <content>DIAGNOSIS CRITERIA</content>
<content>MMB ng/ml Relative Index (RI)</content>
<content>NON-AMI < or = 5 N/A</content>
<content>LOCKETT ZONE > 5 < or = 4</content>
<content>AMI > 5 > 4</content>
<content></content> Troponin I Laboratory test result [facility] ([facility]) <content>Troponin I Reference Interval f or Siemens [place] LOCI:</content>
<content></content>
<content>99th Percentile= 0.00-0.045 ng/ml</content>
<content></content>
<content>Risk Stratification:</content>
<content><= 0.10 ng/ml Decreased Risk for Adverse Clinical</content>
<content>Events.</content>
<content>0.10-1.50 ng/ml Increased Risk for Adverse Clinical</content>
<content>Events. Evaluation of additional</content>
<content>criterion and/or repeat testing in 2-6</content>
<content>hours is suggested to rule out myocardial</content>
<content>damage.</content>
<content>>= 1.50 ng/ml Indicative of Myocardial Injury.</content>
<content></content> ID Date Data Source [id number] 04/30/2020 12:39:00 PM EST [facility] ([facility]) Name Value Range Interpretation Code Description Data Jacqui rce(s) Supporting Document(s) Alt/SGPT 20 U/L 12-78 [facility] ([facility]) Ast/Sgot 9 U/L 7-37 [facility] ([facility]) Alkaline Phosphatase 80 U/L 45-117 [facility] ([facility]) Total Protein 5.8 GM/DL 6.4-8.2 [facility] ([facility]) Bilirubin,Direct Laboratory test result 0.0-0.2 [facility] ([facility]) Bilirubin,Total 0.2 mg/dL 0.2-1.0 [facility] ([facility]) Albumin/Globulin Ratio 0.4 1.2-2.2 [facility] ([facility]) Albumin 1.7 GM/DL 3.2-5.2 [facility] ([facility]) ID Date Data Source [id number] 04/30/2020 12:39:00 PM EST [facility] ([facility]) Name Value Range Interpretation Code Description Data Jacqui rce(s) Supporting Document(s) Glucose, Fasting 252 mg/dL 70-100 [facility] ([facility]) Blood Urea Nitrogen 60 mg/dL 7-18 [facility] ([facility]) Creatinine For GFR 1.61 mg/dL 0.55-1.30 [facility] ([facility]) Glomerular Filtration Rate 33.5 [facility] ([facility]) <content>Units are mL/min/1.73 m2</content>
<content></content>
<content>Chronic Kidney Disease Staging per NKF:</content>
<content></content>
<content>Stage I & II GFR >=60 Normal to Mildly Decreased</content>
<content>Stage III GFR 30- 59 Moderately Decreased</content>
<content>Stage IV GFR 15-29 Severely Decreased</content>
<content>Stage V GFR <15 Very Little GFR Left</content>
<content>ESRD GFR <15 on TRAFFIC CONTROL SUPERVISOR</content>
<content></content> Sodium Level 140 meq/L 136-145 [facility] ([facility]) Chloride Level 112 meq/L 98-107 [facility] ([facility]) Potassium Serum 4.7 meq/L 3.5-5.1 [facility] ([facility]) Carbon Dioxide Level 21 meq/L 21-32 [facility] ([facility]) Anion Gap 7 meq/L 8-16 [facility] ([place] [facility]) Calcium Level 8.5 mg/dL 8.8-10.2 [facility] ([facility]) ID Date Data Source [id number] 04/30/2020 12:39:00 PM EST [facility] ([facility]) Name Value Range Interpretation Code Description Data Jacqui rce(s) Supporting Document(s) Amylase [Enzymatic activity/volume] in Serum or Plasma 26 U/L 25- 115 [facility] ([facility]) C reactive protein [Mass/volume] in Serum or Plasma by High sensitivity method 8.35 mg/dL 0.00-0.30 [facility] ([facility] ) ID Date Data Source [id number] 04/30/2020 12:39:00 PM EST [facility] ([facility]) Name Value Range Interpretation Code Description Data Jacqui rce(s) Supporting Document(s) Blood Type Laboratory test result [facility] ([facility]) AB Screen (Indirect Tab)Vis Laboratory test result [facility] ([facility]) ID Date Data Source [id number] 04/29/2020 09:30:00 AM EST [facility] Name Value Range Interpretation Code Description Data Jacqui rce(s) Supporting Document(s) SARS coronavirus 2 RNA Not Detected [place] This lab was ordered by [facility] and reported by [facility]. ID Date Data Source [id number] 04/23/2020 09:57:00 AM EST [facility] Name Value Range Interpretation Code Description Data Jacqui rce(s) Supporting Document(s) SARS coronavirus 2 RNA [facility] This lab was ordered by [facility] and reported by [facility]. ID Date Data Source [id number] 04/17/2020 11:00:00 AM EST [facility] Name Value Range Interpretation Code Description Data Jacqui rce(s) Supporting Document(s) SARS coronavirus 2 RNA [facility] This lab was ordered by [facility] and reported by [facility]. ID Date Data Source [id number] 04/11/2020 09:00:00 AM EST [facility] Name Value Range Interpretation Code Description Data Jacqui rce(s) Supporting Document(s) SARS coronavirus 2 RNA [facility] This lab was ordered by [facility] and reported by [facility]. ID Date Data Source [id number] 04/07/2020 01:34:00 PM EST [facility] Name Value Range Interpretation Code Description Data Jacqui rce(s) Supporting Document(s) SARS coronavirus 2 RNA [facility] This lab was ordered by [facility] and reported by [facility]. ID Date Data Source [id number] 03/27/2020 09:24:00 PM EST [facility] Name Value Range Interpretation Code Description Data Jacqui rce(s) Supporting Document(s) SARS coronavirus 2 RNA [Presence] in Res piratory specimen by TIMMY with probe detection [facility] This lab was ordered by [facility] a nd reported by [facility]. ID Date Data Source [id number] 03/27/2020 06:50:00 PM EST [facility] ([facility]) Name Value Range Interpretation Code Description Data Jacqui rce(s) Supporting Document(s) C reactive protein [Mass/volume] in Serum or Plasma by High sensitivity method 5.64 mg/dL 0.00-0.30 [facility] ([facility] ) ID Date Data Source [id number] 03/27/2020 06:50:00 PM EST [facility] ([facility]) Name Value Range Interpretation Code Description Data Jacqui rce(s) Supporting Document(s) Glucose, Fasting 268 mg/dL 70-100 [facility] ([facility]) Creatinine For GFR 1.84 mg/dL 0.55-1.30 [facility] ([facility]) Blood Urea Nitrogen 75 mg/dL 7-18 [facility] ([facility]) Sodium Level 138 meq/L 136-145 [facility] ([facility]) Glomerular Filtration Rate 28.7 [facility] ([facility]) <content>Units are mL/min/1.73 m2</content>
<content></content>
<content>Chronic Kidney Disease Staging per NKF:</content>
<content></content>
<content>Stage I & II GFR >=60 Normal to Mildly Decreased</content>
<content>Stage III GFR 30- 59 Moderately Decreased</content>
<content>Stage IV GFR 15-29 Severely Decreased</content>
<content>Stage V GFR <15 Very Little GFR Left</content>
<content>ESRD GFR <15 on TRAFFIC CONTROL SUPERVISOR</content>
<content></content> Chloride Level 107 meq/L 98-107 [facility] ([facility]) Potassium Serum 4.7 meq/L 3.5-5.1 [facility] ([facility]) Carbon Dioxide Level 26 meq/L 21-32 [facility] ([facility]) Calcium Level 8.3 mg/dL 8.8-10.2 [facility] ([facility]) Ast/Sgot 12 U/L 7-37 [facility] ([place] [facility]) Anion Gap 5 meq/L 8-16 [facility] ([place] [facility]) Alkaline Phosphatase 83 U/L 45-117 [facility] ([facility]) Bilirubin,Total 0.2 mg/dL 0.2-1.0 [facility] ([facility]) Alt/SGPT 19 U/L 12-78 [facility] ([place] [facility]) Albumin 1.8 GM/DL 3.2-5.2 [facility] ([place] [facility]) Total Protein 6.0 GM/DL 6.4-8.2 [facility] ([facility]) Albumin/Globulin Ratio 0.4 1.2-2.2 [facility] ([facility]) ID Date Data Source [id number] 03/27/2020 06:50:00 PM EST [facility] ([facility]) Name Value Range Interpretation Code Description Data Jacqui rce(s) Supporting Document(s) Erythrocyte sedimentation rate by Westergren method 125 mm/hr 0-30 [facility] ([facility]) ID Date Data Source [id number] 03/27/2020 06:50:00 PM EST [facility] ([facility]) Name Value Range Interpretation Code Description Data Jacqui rce(s) Supporting Document(s) White Blood Count 8.9 10 4.0-10.0 [facility] ([facility]) Red Blood Count 2.98 10 4.00-5.40 [facility] ([facility]) Hematocrit 26.6 % 36.0-47.0 [facility] [facility] Hemoglobin 7.7 g/dL 12.0-15.5 [facility] ([facility]) Mean Corpuscular Volume 89.3 fl 80.0-96.0 [facility] ([facility]) Mean Corpuscular HGB Conc 28.9 g/dL 32.0-36.5 [facility] ([facility]) Mean Corpuscular Hemoglobin 25.8 pg 27.0-33.0 [facility] ([facility]) Neutrophils % 70.7 % 36.0-66.0 [facility] ([facility]) Platelet Count, Automated 249 10 150-450 [facility] ([facility]) Red Cell Distribution Width 15.1 % 11.5-14.5 [facility] ([facility]) Lymph % 17.2 % 24.0-44.0 [facility] ([facility]) [place] % 8.2 % 0.0-5.0 [facility] ([facility]) Eos % 1.0 % 0.0-3.0 [facility] ([place] [facility]) Nucleated Red Blood Cell % 0.0 % 0-0 [facility] ([facility]) Baso % 0.8 % 0.0-1.0 [facility] ([facility] [facility]) Immature Granulocyte % 2.1 % 0-3.0 [facility] ([facility]) Neutrophils # 6.3 10 1.5-8.5 [facility] ([place] [facility]) Lymph # 1.5 10 1.5-5.0 [facility] ([place] [facility]) [place] # 0.7 10 0.0-0.8 [facility] ([facility] [facility]) Eos # 0.1 10 0.0-0.5 [facility] ([facility] [facility]) Baso # 0.1 10 0.0-0.2 [facility] ([place] [facility]) ID Date Data Source [id number] 03/20/2020 01:00:00 PM EST [facility] Name Value Range Interpretation Code Description Data Jacqui rce(s) Supporting Document(s) SARS coronavirus 2 RNA [facility] This lab was ordered by [facility] and reported by [facility]. ID Date Data Source [id number] 03/14/2020 06:00:00 AM EST [facility] Name Value Range Interpretation Code Description Data Jacqui rce(s) Supporting Document(s) SARS coronavirus 2 RNA [facility] This lab was ordered by [facility] and reported by [facility]. ID Date Data Source [id number] 03/07/2020 01:30:00 PM EST [facility] Name Value Range Interpretation Code Description Data Jacqui rce(s) Supporting Document(s) SARS coronavirus 2 RNA [facility] This lab was ordered by [facility] and reported by [facility]. ID Date Data Source [id number] 02/21/2020 03:22:00 PM EDT [facility] ([facility]) Name Value Range Interpretation Code Description Data Jacqui rce(s) Supporting Document(s) Ast/Sgot 13 U/L 7-37 [facility] ([place] [facility]) Alt/SGPT 19 U/L 12-78 [facility] ([facility]) Alkaline Phosphatase 75 U/L 45-117 [facility] ([facility]) Bilirubin,Direct 0.1 mg/dL 0.0-0.2 [facility] ([facility]) Bilirubin,Total 0.4 mg/dL 0.2-1.0 [facility] ([facility]) Albumin 2.5 GM/DL 3.2-5.2 [facility] ([place] [facility]) Albumin/Globulin Ratio 0.7 1.2-2.2 [facility] ([facility]) Total Protein 6.1 GM/DL 6.4-8.2 [facility] ([facility]) ID Date Data Source [id number] 02/21/2020 03:22:00 PM EDT [facility] ([facility]) Name Value Range Interpretation Code Description Data Jacqui rce(s) Supporting Document(s) CPK Creatine Phosphokinase 73 U/L 26-192 [facility] ([facility]) CK-MB Value Mass 1.4 ng/mL [facility] ([facility]) Troponin I Laboratory test result [facility] ([facility]) <content>Troponin I Reference Interval f or Siemens [place] LOCI:</content>
<content></content>
<content>99th Percentile= 0.00-0.045 ng/ml</content>
<content></content>
<content>Risk Stratification:</content>
<content><= 0.10 ng/ml Decreased Risk for Adverse Clinical</content>
<content>Events.</content>
<content>0.10-1.50 ng/ml Increased Risk for Adverse Clinical</content>
<content>Events. Evaluation of additional</content>
<content>criterion and/or repeat testing in 2-6</content>
<content>hours is suggested to rule out myocardial</content>
<content>damage.</content>
<content>>= 1.50 ng/ml Indicative of Myocardial Injury.</content>
<content></content> MB/CK Relative Index 1.92 [facility] <content>DIAGNOSIS CRITERIA</content>
<content>MMB ng/ml Relative Index (RI)</content>
<content>NON-AMI < or = 5 N/A</content>
<content>LOCKETT ZONE > 5 < or = 4</content>
<content>AMI > 5 > 4</content>
<content></content> ID Date Data Source [id number] 02/21/2020 03:22:00 PM EDT [facility] Name Value Range Interpretation Code Description Data Jacqui rce(s) Supporting Document(s) Lactate [Mass/volume] in Serum or Plasma 1.0 mmol/L 0.4-2.0 [facility] Y/N query for Sepsis Lactate Rule: Y Procedure Social History Code Duration Value Status Description Data Source(s ) Smoking 06/04/2020 12:00:00 AM EST Former Smoker completed Former Smoker [facility] ([facility]) Smoking 05/21/2020 12:00:00 AM EST Former Smoker completed Former Smoker [facility] ([facility]) Smoking 05/21/2020 12:00:00 AM EST Former Smoker completed Former Smoker [facility] ([facility]) Vital Signs ID Date Data Source [id number] Name Value Range Interpretation Code Description Data Source(s) Body height 60 [in_i] 60 [in_i] [facility] ([facility], ) 5'0" Body weight 234.00 [lb_av] 234.00 [lb_av] HAL T ([facility]) Body mass index (BMI) [Ratio] 45.7 kg/m2 45.7 k g/m2 [facility] [facility] [place] body weight 100 [lb_av] 100 [lb_av] MEDEN T ([facility]) Body weight 106.142 kg 106.142 kg MEDENT ([facility]) Body surface area Derived from formula 2.00 m2 2.00 m2 [facility] ([facility]) Body height 60 [in_i] 60 [in_i] MEDENT ([facility]) 5'0" Body weight 234.00 [lb_av] 234.00 [lb_av] MEDEN T ([facility]) Body mass index (BMI) [Ratio] 45.7 kg/m2 45.7 k g/m2 [facility] ([facility]) Coyle body weight 100 [lb_av] 100 [lb_av] MEDEN T ([facility]) Body weight 106.142 kg 106.142 kg MEDENT ([facility]) Body surface area Derived from formula 2.00 m2 2.00 m2 MEDENT ([facility]) Body weight 233 [lb_av] 233 [lb_av] eCW1 ([facility]) Body height 61.5 [in_i] 61.5 [in_i] eCW1 ([facility]) Body mass index (BMI) [Ratio] 43.31 kg/m2 43.31 kg/m2 eCW1 ([facility]) Heart rate 67 /min 67 /min eCW1 ([facility]) Respiratory rate 18 /min 18 /min eCW1 ([facility]) Body temperature 96.8 [degF] 96.8 [degF] eCW1 ( [facility]) Systolic blood pressure 132 mm[Hg] 132 mm[Hg] e CW1 ([facility]) Diastolic blood pressure 68 mm[Hg] 68 mm[Hg] eCW1 ([facility]) Systolic blood pressure 132 mm[Hg] 132 mm[Hg] [facility] Diastolic blood pressure 72 mm[Hg] 72 mm[Hg] [facility] Heart rate 70 /min 70 /min [facility] Respiratory rate 16 /min 16 /min [facility] Body height 154.9 cm 154.9 cm [facility] Body weight 97.523 kg 97.523 kg [facility] wt reported from 05/22/20 at the facility Body mass index (BMI) [Ratio] 40.62 kg/m2 40.62 kg/m2 [facility] Oxygen saturation in Arterial blood by Pulse oximetry 16 % 16 % [facility] Body weight 233 [lb_av] 233 [lb_av] eCW1 ([facility]) Body height 61.5 [in_i] 61.5 [in_i] eCW1 ([facility]) Body mass index (BMI) [Ratio] 43.31 kg/m2 43.31 kg/m2 W1 ([facility]) Heart rate 75 /min 75 /min eCW1 ([facility]) Respiratory rate 20 /min 20 /min eCW1 ([facility]) Body temperature 96.4 [degF] 96.4 [degF] eCW1 ( [facility]) Systolic blood pressure 130 mm[Hg] 130 mm[Hg] e CW1 ([facility]) Diastolic blood pressure 72 mm[Hg] 72 mm[Hg] eCW1 ([facility]) Patient Treatment Plan of Care Planned Activity Planned Date Details Description Data Source (s) 3 ML Insulin Lispro 100 UNT/ML Pen Injector [Humalog] 03/23/2020 12:00:00 AM [facility] Spironolactone 25 MG Oral Tablet 03/14/2020 12:00:00 AM EST [facility] pantoprazole 40 MG Delayed Release Oral Tablet 03/10/2020 12:00:00 AM EST [facility] clopidogrel 75 MG Oral Tablet 03/08/2020 12:00:00 AM EST [facility] atorvastatin 40 MG Oral Tablet 03/08/2020 12:00:00 AM EST [facility] Fluoxetine 10 MG Oral Capsule 03/08/2020 12:00:00 AM EST [facility] Hydralazine Hydrochloride 50 MG Oral Tablet 03/08/2020 12:00:00 AM EST [facility] Isosorbide Dinitrate 20 MG Oral Tablet 03/08/2020 12:00:00 AM EST [facility] ferrous gluconate 324 MG Oral Tablet 03/03/2020 12:00:00 AM EST [facility] Ondansetron 4 MG Oral Tablet 03/03/2020 12:00:00 AM EST [facility] Hydralazine Hydrochloride 100 MG Oral Tablet [facility]
[2021-02-23] MEDS ORDERED: PANT40TA29 PO (16:52)
[2021-02-23] MEDS ORDERED: FLUO10CA16 PO (16:52)
[2021-02-23] MEDS ORDERED: HYDR-3910 PO (16:52)
[2021-02-23] MEDS ORDERED: ACETAMINOPHEN 650 MG SUPP PR PRN (17:50)
[2021-02-23] MEDS ORDERED: POLYVINYL ALCOHOL OPHTH SOLN 15 ML(LIQUITEARS) OU PRN (17:50)
[2021-02-23] MEDS ORDERED: MORPHINE 4 MG/ML 1ML VIAL/SYRINGE (J2270) IV PRN (17:50)
[2021-02-23] MEDS ORDERED: MORPHINE 30 MG TAB **MSIR PO PRN (17:50)
[2021-02-23] MEDS ORDERED: MOM 30ML SUSPENSION UDC PO PRN (17:50)
[2021-02-23] MEDS ORDERED: BISACODYL 10 MG SUPP PR PRN (17:50)
[2021-02-23] MEDS ORDERED: NALOXONE INJ 0.4MG/1ML VIAL (J2310 PER 1MG) IV PRN (17:55)
[2021-02-23] MEDS ORDERED: **hydrALAZINE HCL** 25 MG TAB PO ONE (18:00)
[2021-02-23] MEDS ORDERED: ISOSORBIDE DIN. (ISORDIL) 20 MG TAB PO ONE (18:00)
[2021-02-23] MEDS ORDERED: CARVedilol 6.25 MG TAB PO ONE (18:00)
[2021-02-23] MEDS ORDERED: PILL CUTTER 1 EACH XX PRN (18:10)
--- NOTE | 2021-02-23 18:39 | HPEPDOC ---
[facility] Medical History & Physical Date of Admission Feb 23, 2021 Date of Service: Feb 23, 2021 History and Physical CHIEF COMPLAINT: Fall, right hip pain and unable to ambulate HISTORY OF PRESENT ILLNESS: 75-year-old female resident at [facility] brought in by EMS due to a mechanical fall, tripping over her walker with complaints of right hip pain, 10 out of 10 on a pain scale, described as sharp, shooting, and stabbing pain, deformed with shortened / rotated right lower extremity and abrasions to the right lower extremity and left thumb. Patient said that she fell 2 days ago while walking with her walker when her walker hit something and she fell over her walker without loss of consciousness. She denied any prodromal symptoms prior to the episode with a similar event today. Patient could not reach the call button and was yelling out for about 10 minutes before staff member came to her aid she was left on the ground until EMS came. She remembers falling on her right side and having severe pain unable to get up. No medications were given at [facility] for her pain. She was brought into the ER for further evaluation In the ER patient was found to have a right femoral neck fracture, and presented with hypertensive urgency systolic pressure of 229/93 millimeters of mercury.Patient denies enies fever chills visual changes weight changes appetite changes. Complains of dry eyes but denies diplopia changes in vision. Denies odynophagia dysphagia nausea vomiting diarrhea hematemesis bright red blood per rectum melena black tarry stools coffee-ground emesis chest pain pressure tightness shortness of breath cough PND orthopnea nocturia palpitations lightheadedness dizziness. She admits to using oxygen ex-smoker has history of COPD. Denies dysuria urgency frequency. Chronic lower extremity edema. PAST MEDICAL HISTORY: Diastolic congestive heart failure ejection fraction 60% with preserved systolic function Chronic kidney disease stage III-IV Hypertension Type 2 diabetes with peripheral neuropathy Hyperlipidemia Peripheral vascular disease with vascular stenting on Plavix and aspirin Reported COPD Paroxysmal atrial fibrillation Right medial malleolus MSSA osteomyelitis Iron deficiency anemia Secondary hyperparathyroidism of renal origin Vitamin D deficiency Adenomatous colonic polyps Pneumonia Morbid obesity BMI 42 Obstructive sleep apnea Charcot joint of the right ankle and foot Bipolar disorder Depression Constipation PAST SURGICAL HISTORY: Stenting of iliac arteries April 2020 Left big toe amputation Left breast lumpectomy Appendectomy Hysterectomy Right ankle surgery x2 Colonoscopy with polypectomy 09/2019 Left foot surgery 2016 ORIF of the right ankle fracture Right ankle aspiration ORIF right elbow SOCIAL HISTORY: DO NOT RESUSCITATE DO NOT INTUBATE Previous smoker 10 pack history quit [facility] resident 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 REVIEW OF SYSTEMS: 10 point review of system negative aside from positive findings on HPI HOME MEDICATIONS: Please see below. PHYSICAL EXAMINATION: VITAL SIGNS: See below GENERAL APPEARANCE: No respiratory distress awake alert oriented to person place and time answering questions appropriately Pleasant obese female on oxygen. HEENT: Extraocular muscles intact moist mucous membranes neck is supple unable to assess for jugular venous distention CARDIOVASCULAR: S1-S2 regular rate rhythm no murmurs rubs or gallops nondisplaced PMI no S3 LUNGS: Diminished breath sounds bilateral bases no conversational dyspnea or use of respiratory accessory muscles symmetric chest expansion with prolonged expiration ABDOMEN: Obese soft nontender nondistended positive bowel sounds x4 quadrants no rebound guarding EXTREMITIES: Rotated right lower extremity shortened tender at the right hip left big toe amputation, Charcot joint right ankle and foot chronic edema bilaterally Chronic venous stasis dermatitis. Abrasions on the right lower extremity SKIN: Bruising bilateral upper and lower extremities abrasion on the left f orehead. LABORATORY DATA: See below. IMAGING: See below MICROBIOLOGY: Please see below. ASSESSMENT: 75-year-old female resident at [facility] brought in by EMS due to a mechanical fall, tripping over her walker with complaints of right hip pain, 10 out of 10 on a pain scale, described as sharp, shooting, and stabbing pain, deformed with shortened / rotated right lower extremity and abrasions to the right lower extremity and left thumb. Patient said that she fell 2 days ago while walking with her walker when her walker hit something and she fell over her walker without loss of consciousness. She denied any prodromal symptoms prior to the episode with a similar event today. Patient could not reach the call button and was yelling out for about 10 minutes before staff member came to her aid she was left on the ground until EMS came. She remembers falling on her right side and having severe pain unable to get up. No medications were given at [facility] for her pain. She was brought into the ER for further evaluation In the ER patient was found to have a right femoral neck fracture, and presented with hypertensive urgency systolic pressure of 229/93 millimeters of mercury.Patient denies enies fever chills visual changes weight changes appetite changes. Complains of dry eyes but denies diplopia changes in vision. Denies odynophagia dysphagia nausea vomiting diarrhea hematemesis bright red blood per rectum melena black tarry stools coffee-ground emesis chest pain pressure tightness shortness of breath cough PND orthopnea nocturia palpitations lightheadedness dizziness. She admits to using oxygen ex-smoker has history of COPD. Denies dysuria urgency frequency. Chronic lower extremity edema. Right femoral neck fracture secondary to mechanical fall -Orthopedic surgery consulted. Aspirin and Plavix held. Pain medications. Bowel regimen. -Will need to medically optimize patient's blood pressure prior to proceeding to the OR. -Bedrest. Medical clearance -Not medically optimized due to hypertensive urgency. -We will need to get blood pressure under control prior to proceeding to surgery. -Aspirin Plavix have been held Hypertensive urgency exacerbated by acute right femoral neck fracture -On arrival, patient's blood pressure was 229/93 due to severe pain from recent mechanical fall and right femoral neck fracture - Diastolic congestive heart failure ejection fraction 60% with preserved systolic function, compensated -Strict I's and O's, daily weights fluid restriction. -Resume home medications except for aspirin and Plavix Chronic kidney disease stage III/secondary hyperparathyroidism/chronic iron deficiency anemia and anemia of chronic renal disease -Monitor I's and O's, daily weights, renally dose all medications, avoid nephrotoxins -If worsening creatinine, consult nephrology to manage patient's fluid balance. Type 2 diabetes -Consistent carbohydrate diet, insulin sliding scale with [facility] insulin coverage per protocol, hypoglycemic protocol, check hemoglobin A1c Hyperlipidemia -Chronic Peripheral vascular disease with vascular stenting on chronic Plavix and aspirin -We will need to hold aspirin and Plavix prior to surgery Reported COPD -As needed bronchodilators Morbid obesity BMI 42/[place] -Complicating care -[place] protocol -Monitor for worsening respiratory acidosis at risk of hypercapnic respiratory failure Paroxysmal atrial fibrillation -On arrival in the ER, patient was sinus rhythm ventricle rate of 76-83 -Not on oral anticoagulation. History of right medial malleolus MSSA osteomyelitis Iron deficiency anemia -No acute indication for RBC transfusion Vitamin D deficiency History of adenomatous colonic polyps Code: DNR/DNI Diet: Consistent carbohydrate 2 g sodium renal diet. Once medically cleared, will keep n.p.o. for surgery. DVT prophylaxis: Compression stockings. Vital Signs Vital Signs Date Time Temp Pulse Resp B/P (MAP) Pulse Ox O2 Delivery O2 Flow Rate FiO2 02/23/21 16:38 20 02/23/21 15:43 97.8 80 220/97 (138) 88 Room Air Laboratory Data Labs 24H Laboratory Tests 2 02/23/21 15:44: Immature Granulocyte % (Auto) 1.8, Neutrophils (%) (Auto) 77.7H, Lymphocytes (%) (Auto) 10.7L, Monocytes (%) (Auto) 6.9, Eosinophils (%) (Auto) 2.2, Basophils (%) (Auto) 0.7, Neutrophils # (Auto) 5.8, Lymphocytes # (Auto) 0.8L, Monocytes # (Auto) 0.5, Eosinophils # (Auto) 0.2, Basophils # (Auto) 0.1, Nucleated Red Blood Cells % (auto) 0.0, Anion Gap 5L, Glomerular Filtration Rate 25.4L, Calcium Level 8.0L, Total Creatine Kinase 62, Creatine Kinase MB 1.0, Creatine Kinase MB Relative Index 1.61 02/23/21 15:52: Coronavirus (COVID-19)(PCR) NEGATIVE, Influenza Type A (RT-PCR) NEGATIVE, Influenza Type B (RT-PCR) NEGATIVE, Respiratory Syncytial Virus (PCR) NEGATIVE CBC/BMP Laboratory Tests 02/23/21 15:44 Home Medications Scheduled Aspirin (Aspirin EC) 81 Mg Tab, 81 MG PO DAILY Atorvastatin Calcium (Atorvastatin Calcium) 40 Mg Tablet, 40 MG PO QHS Carvedilol (Carvedilol) 6.25 Mg Tab, 6.25 MG PO BID Clopidogrel Bisulfate (Plavix) 75 Mg Tablet, 75 MG PO QHS Docusate Sodium (Colace) 100 Mg Capsule, 100 MG PO QHS Ferrous Sulfate (Ferrous Sulfate) 325 Mg Tab, 325 MG PO DAILY Fluoxetine Hcl (Fluoxetine HCl) 10 Mg Capsule, 30 MG PO DAILY Hydralazine HCl (Hydralazine HCl) 25 Mg Tablet, 25 MG PO BID Insulin Detemir (Levemir Flextouch) 100 Unit/1 Ml Insuln.pen, 25 UNIT SC QAM Isosorbide Dinitrate (Isosorbide Dinitrate) 20 Mg Tablet, 20 MG PO BID Ondansetron HCl (Ondansetron HCl) 4 Mg Tablet, 4 MG PO DAILY Pantoprazole Sodium (Pantoprazole Sodium) 40 Mg Tablet.dr, 40 MG PO DAILY Psyllium Husk (with Sugar) (Metamucil Powder) 575 Gm Powder, 1 PACKET PO DAILY MIX IN WATER Scheduled PRN Acetaminophen (Acetaminophen) 650 Mg Supp.rect, 650 MG WI Q4H PRN for PAIN / FEVER Bisacodyl (Bisacodyl) 10 Mg Supp.rect, 10 MG WI DAILY PRN for CONSTIPATION Glucagon,Human Recombinant (Glucagon Emergency Kit) 1 Mg Vial, 1 MG IM ASDIRECTED PRN for LOW BLOOD SUGAR Magnesium Hydroxide (Milk of Magnesia) 400 Mg/5 Ml Oral.susp, 30 ML PO DAILY PRN for CONSTIPATION Polyvinyl Alcohol (Artificial Tears) 15 Ml Drops, 1 DROP OU Q2H PRN for DRY EYES Sodium Phosphate,Arroyo-Dibasic (Enema) 133 Ml Enema, 1 GALO WI DAILY PRN for CONSTIPATION Allergies Coded Allergies: Latex, Natural Rubber (Verified Allergy, Unknown, Rash, 11/22/20) milk (Verified Allergy, Unknown, 11/22/20) A-FIB/CHADSVASC A-FIB History Current/History of A-Fib/PAF?: No Current PO Anticoag Therapy: No Age/Risk Factor Scoring CHADSVASC: CHADSVASC Response (Comments) Value Age Risk Factor Age 65-74 years old 1 Gender Risk Factor Female 1 Hx of CHF Yes 1 Hx of HTN Yes 1 Hx of Stroke/TIA/or VTE No 0 Hx of Diabetes Yes 1 Hx of Vascular Disease Yes 1 Total 6 Treatment Treatment ordered: NONE JOYCE NICE MD Feb 23, 2021 17:23
[2021-02-23 18:51] LABS: INR 1.13; PROTHROMBIN TIME 14.9 SECONDS (12.7-14.5)
[2021-02-23 18:52] LABS: PARTIAL THROMBOPLASTIN TIME 36.1 SECONDS (25.9-37.0)
[2021-02-23] MEDS: ACETAMINOPHEN 500 MG TAB PO SCH ×2 (20:56→21:00)
[2021-02-23] MEDS: DOCUSATE SODIUM 100MG CAPSULE PO SCH ×2 (20:56→21:00)
[2021-02-23] MEDS: ATORVASTATIN 20 MG TAB PO SCH ×2 (20:57→21:00)
[2021-02-23] MEDS: MORPHINE 15 MG SA TAB PO SCH ×2 (20:57→21:00)
[2021-02-23] MEDS ORDERED: ENOXAPARIN 30MG/0.3ML SYRINGE (J1650 PER 10MG) SC ONE (21:00)
[2021-02-23] MEDS ORDERED: methylPREDNISolone 125MG 2ML VIAL IV ONE (21:25)
[2021-02-23] MEDS ORDERED: LEVALBUTEROL 1.25 MG/0.5 ML CONCENTRATE NEB INH PRN (21:25)
[2021-02-23] MEDS: ONDANSETRON 4MG/2ML VIAL IV PRN (22:14)
[2021-02-24] VITALS (7 sets, daily range): BP systolic 154–179; BP diastolic 66–80; O2SAT 92
[2021-02-24] MEDS ORDERED: IPRATROPIUM 0.5MG/ALBUTEROL 2.5MG INH SOL UD 3ML (DUONEB) NEB PRN (00:20)
[2021-02-24] MEDS: **hydrALAZINE HCL** 25 MG TAB PO SCH ×4 (01:40→18:28)
[2021-02-24] MEDS ORDERED: IPRATROPIUM 0.5MG/ALBUTEROL 2.5MG INH SOL UD 3ML (DUONEB) NEB SCH (02:00)
--- NOTE | 2021-02-24 05:50 | ECGEPIP ---
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
--- NOTE | 2021-02-24 07:14 | CR ---
ER CONSULTATION DATE: 02/23/2021 TIME: 9 p.m. CONSULTING SERVICE: Orthopedic Surgery CONSULTING PHYSICIAN: JORGE MCCALL MD HISTORY OF PRESENT ILLNESS: This is a 75-year-old female with a right femoral neck fracture status post a ground level fall. The patient was a resident at [facility] and tripped over her walker. She was experiencing 10/10 pain and had difficulty with any type of weightbearing after the ground-level fall. She sustained a Garden 4 right femoral neck fracture. She is a household ambulator with assistive devices. She denies any loss of consciousness and a staff member saw her on the ground. She has multiple medical comorbidities as described below. Orthopedic Surgery was consulted for the right femoral neck fracture. PAST MEDICAL HISTORY: 1. Diastolic congestive heart failure. 2. Chronic kidney disease. 3. Hypertension. 4. Type 2 diabetes with peripheral neuropathy. 5. Hyperlipidemia. 6. Peripheral vascular disease with vascular stenting on Plavix and aspirin. 7. Reported COPD. 8. Paroxysmal atrial fibrillation. 9. Right medial malleolar MSSA osteomyelitis. 10.Iron deficiency anemia. 11.Secondary hyperparathyroidism of renal origin. 12.Vitamin D deficiency. 13.Edematous colonic polyps. 14.Pneumonia. 15.Morbid obesity (BMI of 42). 16.Obstructive sleep apnea. 17.Charcot joint of the right ankle/foot. 18.Bipolar disorder. 19.Depression. 20.Constipation. PAST SURGICAL HISTORY: 1. Stenting of the iliac arteries April 2020. 2. Left big toe amputation. 3. Left breast lumpectomy. 4. Appendectomy. 5. Hysterectomy. 6. Right ankle surgery. 7. x2. 8. Colonoscopy with polypectomy. 9. Left foot surgery. 10.ORIF of the right ankle fracture. 11.Right ankle aspiration. 12.ORIF of the right elbow. SOCIAL HISTORY: She is a DNR (do not resuscitate), DNI (do not intubate), previous smoker, 10 pack year history. She does not currently smoke. [facility] resident. She is retired. Denies alcohol or recreational drug use. FAMILY HISTORY: Diabetes, coronary artery disease. ALLERGIES: Please see Medicine note. REVIEW OF SYSTEMS: A 14 point review of systems is negative unless otherwise stated in the HPI above. HOME MEDICATIONS: Please see Internal Medicine note. PHYSICAL EXAMINATION: Alert and oriented to person, time and place. The patient's right hip was placed in flexion, abduction and external rotation position. She had a positive log-roll sign. There were no breaks in the skin. She is otherwise neurovascularly intact to the right lower extremity. She had 5/5 motor strength in the EHL, FHL, tibialis anterior, gastrocnemius and peroneal musculature. Sensation intact to light touch to the deep and superficial peroneal, sural saphenous and tibial nerve distributions. She had a palpable dorsalis pedis and posterior tibial arterial pulse. Brisk capillary refill of the digits. RADIOGRAPHS: Radiographs demonstrate a complete and displaced Garden Type 4 femoral neck fracture. IMPRESSION: A 75-year-old female with multiple medical comorbidities with a right femoral neck fracture requiring hemiarthroplasty. PLAN: Given the patient will be nonweightbearing as tolerated without urgent hemiarthroplasty, the patient will require a right hip hemiarthroplasty in order to decrease her chances of mortality or morbidity. The sooner we achieve this the better, however given her Plavix and aspirin I feel that she will need to be optimized within the next 48 hours. The plan at this point in time is for right hemiarthroplasty on Wednesday, the 25 of February in the afternoon. I have talked to the Internal Medicine Team and they agree that she will be optimized for the aforementioned procedure.
[2021-02-24] MEDS ORDERED: FUROSEMIDE 40MG/4ML VIAL (J1940) IV SCH (09:00)
[2021-02-24] MEDS ORDERED: **hydrALAZINE HCL** 25 MG TAB PO SCH (09:00)
[2021-02-24] MEDS ORDERED: ONDANSETRON 4 MG TAB PO SCH (09:00)
[2021-02-24] MEDS ORDERED: NALOXONE INJ 0.4MG/1ML VIAL (J2310 PER 1MG) IV STA (09:11)
[2021-02-24] MEDS ORDERED: methylPREDNISolone 125MG 2ML VIAL IV ONE (09:15)
[2021-02-24] MEDS: LEVALBUTEROL 1.25 MG/0.5 ML CONCENTRATE NEB INH SCH ×4 (09:25→19:30)
[2021-02-24] MEDS: LEVALBUTEROL 1.25 MG/0.5 ML CONCENTRATE NEB INH PRN (09:37)
--- NOTE | 2021-02-24 09:45 | REP ---
INDICATION: SOB. COMPARISON: 02/23/2021 at 3:47 p.m. TECHNIQUE: Portable FINDINGS: The technique utilized in obtaining the radiograph has magnified the cardiac silhouette and accentuated the interstitial markings. The cardiomediastinal silhouette lung ayala are essentially unchanged. Once again, there is cardiomegaly accentuated by technique. Once again, the interstitial markings are chronically increased status quo. No definite new abnormal focal opacities seem to have developed. There is no change in the osseous structures. IMPRESSION: No significant change. <Electronically signed by Arvind Milligan > 02/24/21 0941
[2021-02-24 09:59] LABS: ABG BASE EXCESS -2.9 (-2.0-2.0); ABG HCO3 22.4 MEQ/L (22.0-26.0); ABG O2 SATURATION 96.9 % (95.0-99.0); ABG PARTIAL PRESSURE CO2 41.4 mmHg (35.0-45.0); ABG PARTIAL PRESSURE O2 107.1 mmHg (75.0-100.0); ABG TOTAL CO2 23.7 MEQ/L (23.0-31.0); ABG pH (ARTERIAL) 7.352 UNITS (7.350-7.450)
--- NOTE | 2021-02-24 10:20 | IPNPDOC ---
Date Seen The patient was seen on 02/24/21. Progress Note SUBJECTIVE: When patient arrived in [facility] from the emergency room, she was in moderate respiratory distress Requiring 6 L nasal cannula. She was given Narcan due to morphine causing sedation. Patient is less lethargic and able to answer questions but with conversational dyspnea. She denies any chest pain pressure tightness lightheadedness dizziness fever chills nausea vomiting diaphoresis, but admits to dyspnea at rest. She also complains of 7 out of 10 pain at the right hip OBJECTIVE: PHYSICAL EXAMINATION: VITAL SIGNS: See below GENERAL APPEARANCE: Moderate distress with conversational dyspnea use of respiratory accessory muscles. On 6 L of oxygen via nasal cannula. Answering questions appropriately awake alert oriented x3 after Narcan was given. HEENT: Extraocular muscles intact moist mucous membranes neck is supple unable to assess for jugular venous distention CARDIOVASCULAR: S1-S2 regular rate rhythm no murmurs rubs or gallops nondisplaced PMI no S3 LUNGS: Diminished breath sounds bilateral bases positive use of respiratory accessory muscles Conversational dyspnea. Prolonged expiration faint expiratory wheezing bilaterally ABDOMEN: Obese soft nontender nondistended positive bowel sounds x4 quadrants no rebound guarding EXTREMITIES: Rotated right lower extremity shortened tender at the right hip left big toe amputation, Charcot joint right ankle and foot chronic edema bilaterally Chronic venous stasis dermatitis. Abrasions on the right lower extremity SKIN: Bruising bilateral upper and lower extremities abrasion on the left forehead. LABORATORY DATA: See below. IMAGING: See below MICROBIOLOGY: Please see below. ASSESSMENT: 75-year-old female resident at [facility] brought in by EMS due to a mechanical fall, tripping over her walker with complaints of right hip pain, 10 out of 10 on a pain scale, described as sharp, shooting, and stabbing pain, deformed with shortened / rotated right lower extremity and abrasions to the right lower extremity and left thumb. Patient said that she fell 2 days ago while walking with her walker when her walker hit something and she fell over her walker without loss of consciousness. She denied any prodromal symptoms prior to the episode with a similar event today. Patient could not reach the call button and was yelling out for about 10 minutes before staff member came to her aid she was left on the ground until EMS came. She remembers falling on her right side and having severe pain unable to get up. No medications were given at [facility] for her pain. She was brought into the ER for further evaluation In the ER patient was found to have a right femoral neck fracture, and presented with hypertensive urgency systolic pressure of 229/93 millimeters of mercury.Patient denies enies fever chills visual changes weight changes appetite changes. Complains of dry eyes but denies diplopia changes in vision. Denies odynophagia dysphagia nausea vomiting diarrhea hematemesis bright red blood per rectum melena black tarry stools coffee-ground emesis chest pain pressure tightness shortness of breath cough PND orthopnea nocturia palpitations lightheadedness dizziness. She admits to using oxygen ex-smoker has history of COPD. Denies dysuria urgency frequency. Chronic lower extremity edema. Right femoral neck fracture secondary to mechanical fall -Orthopedic surgery consulted. Aspirin and Plavix held. Pain medications. Bowel regimen. -Michelle catheter -Bedrest. -Once medically optimized patient is to proceed to surgery on 02/26/2020 1 in the afternoon per Dr. Dubois orthopedic surgeon. Medical clearance -Not medically optimized due to respiratory distress and COPD exacerbation this morning -Hypertensive urgency has resolved but patient is placed on Solu-Medrol due to significant respiratory distress this morning. -Aspirin Plavix have been held -Repeat chest x-ray has no acute changes from admission. Hypertensive urgency exacerbated by acute right femoral neck fracture, resolved -On arrival, patient's blood pressure was 229/93 due to severe pain from recent mechanical fall and right femoral neck fracture -Resumed on home medications: Isosorbide Coreg and hydralazine has been changed to 25 every 6 hourly.. Diastolic congestive heart failure ejection fraction 60% with preserved systolic function, compensated -Strict I's and O's, daily weights fluid restriction. -Resume home medications except for aspirin and Plavix -On IV Lasix 40 daily defer to nephrology for changes in order to keep euvolemic Chronic kidney disease stage III/secondary hyperparathyroidism/chronic iron deficiency anemia and anemia of chronic renal disease -Monitor I's and O's, daily weights, renally dose all medications, avoid nephrotoxins -Nephrology consulted due to worsening respiratory distress today currently on Lasix 40 IV daily. -defer to nephrology for any changes in diuretics Type 2 diabetes -Consistent carbohydrate diet, insulin sliding scale with [facility] insulin coverage per protocol, hypoglycemic protocol Hyperlipidemia -Chronic Peripheral vascular disease with vascular stenting on chronic Plavix and aspirin -We will need to hold aspirin and Plavix prior to surgery Acute COPD exacerbation -Solu-Medrol IV every 6 -Status post Solu-Medrol 125 mg IV x1 bolus -Xopenex every 4 hourly and as needed Morphine induced sedation -Morphine discontinued due to lethargy -ABG reviewed Morbid obesity BMI 42/[place] -Complicating care -[place]INA protocol -Monitor for worsening respiratory acidosis at risk of hypercapnic respiratory failure -ABG reviewed Paroxysmal atrial fibrillation -On arrival in the ER, patient was sinus rhythm ventricle rate of 76-83 -Not on oral anticoagulation. -On Coreg History of right medial malleolus MSSA osteomyelitis Iron deficiency anemia -No acute indication for RBC transfusion Vitamin D deficiency History of adenomatous colonic polyps Code: DNR/DNI Diet: Consistent carbohydrate 2 g sodium renal diet. Once medically cleared, will keep n.p.o. for surgery. DVT prophylaxis: Compression stockings. VS, I&O, 24H, Fishbone Vital Signs/I&O Vital Signs Date Time Temp Pulse Resp B/P (MAP) Pulse Ox O2 Delivery O2 Flow Rate FiO2 02/24/21 09:10 97.9 77 22 174/68 (103) 86 Nasal Cannula 6.0 I&O- Last 24 Hours up to 6 AM 02/24/21 06:00 Output Total 950 ml Balance -950 ml Laboratory Data 24H LABS Laboratory Tests 2 02/23/21 15:44: Immature Granulocyte % (Auto) 1.8, Neutrophils (%) (Auto) 77.7H, Lymphocytes (%) (Auto) 10.7L, Monocytes (%) (Auto) 6.9, Eosinophils (%) (Auto) 2.2, Basophils (%) (Auto) 0.7, Neutrophils # (Auto) 5.8, Lymphocytes # (Auto) 0.8L, Monocytes # (Auto) 0.5, Eosinophils # (Auto) 0.2, Basophils # (Auto) 0.1, Nucleated Red Blood Cells % (auto) 0.0, Anion Gap 5L, Glomerular Filtration Rate 25.4L, Calcium Level 8.0L, Total Creatine Kinase 62, Creatine Kinase MB 1.0, Creatine Kinase MB Relative Index 1.61 02/23/21 15:52: Coronavirus (COVID-19)(PCR) NEGATIVE, Influenza Type A (RT-PCR) NEGATIVE, Influenza Type B (RT-PCR) NEGATIVE, Respiratory Syncytial Virus (PCR) NEGATIVE 02/23/21 18:06: Prothrombin Time 14.9H, Prothromb Time International Ratio 1.13, Activated Partial Thromboplast Time 36.1 02/23/21 23:23: [id number]-N-Type Natriuretic Peptide 3385H 02/24/21 09:09: Blood Gas Bicarbonate Standard 22.0, Arterial Blood pH 7.352, Arterial Blood Partial Pressure CO2 41.4, Arterial Blood Partial Pressure O2 107.1H, Arterial Blood Total CO2 23.7, Arterial Blood HCO3 22.4, Arterial Blood Base Excess - 2.9L, Arterial Blood Oxygen Saturation 96.9 CBC/BMP Laboratory Tests 02/23/21 15:44 JOYCE NICE MD Feb 24, 2021 10:20
[2021-02-24] MEDS: METAMUCIL (PSYLLIUM) PACKET PO SCH (10:21)
[2021-02-24] MEDS: PANTOPRAZOLE 40MG TAB (PROTONIX) PO SCH (10:22)
[2021-02-24] MEDS: CARVedilol 6.25 MG TAB PO SCH ×2 (10:22→21:02)
[2021-02-24] MEDS: ISOSORBIDE DIN. (ISORDIL) 20 MG TAB PO SCH ×2 (10:23→21:02)
[2021-02-24] MEDS: FERROUS SULFATE 325MG TAB PO SCH (10:24)
[2021-02-24] MEDS: FLUoxetine 10 MG CAP PO SCH (10:24)
[2021-02-24] MEDS: ACETAMINOPHEN 500 MG TAB PO SCH (10:25)
[2021-02-24 10:53] LABS: BASO % 0.2 % (0.0-1.0); HEMOGLOBIN 9.4 g/dl (12.0-15.5); LYMPH # 0.5 10^3/uL (1.5-5.0); LYMPH % 3.8 % (24.0-44.0); MEAN CORPUSCULAR HEMOGLOBIN 29.3 pg (27.0-33.0); MEAN CORPUSCULAR HGB CONC 30.3 g/dl (32.0-36.5); MEAN CORPUSCULAR VOLUME 96.6 fl (80.0-96.0); MONO # 0.2 10^3/uL (0.0-0.8); MONO % 1.7 % (2.0-8.0); NEUTROPHILS # 11.7 10^3/uL (1.5-8.5); NEUTROPHILS % 93.7 % (36.0-66.0); PLATELET COUNT, AUTOMATED 129 10^3/uL (150-450); RED BLOOD COUNT 3.21 10^6/uL (4.00-5.40); WHITE BLOOD COUNT 12.5 10^3/uL (4.0-10.0)
[2021-02-24 11:45] LABS: BLOOD UREA NITROGEN 55 MG/DL (7-18); CALCIUM LEVEL 8.6 MG/DL (8.8-10.2); CARBON DIOXIDE LEVEL 23 MEQ/L (21-32); CHLORIDE LEVEL 113 MEQ/L (98-107); CK-MB VALUE MASS 1.1 NG/ML (<3.6); CPK CREATINE PHOSPHOKINASE 79 U/L (26-192); CREATININE FOR GFR 2.06 MG/DL (0.55-1.30); GLOMERULAR FILTRATION RATE 25.1 (>39); GLUCOSE, FASTING 222 MG/DL (70-100); MB/CK RELATIVE INDEX 1.39 (< OR =4); NT-PRO BNP 5683 PG/ML (<125); SODIUM LEVEL 142 MEQ/L (136-145); TROPONIN I < 0.02 NG/ML (< 0.10)
[2021-02-24] MEDS ORDERED: ENOXAPARIN 40MG/0.4ML SYRINGE (J1650 PER 10MG) SC ONE (13:15)
[2021-02-24] MEDS ORDERED: FUROSEMIDE 40MG/4ML VIAL (J1940) IV ONE ×2 (13:20→19:00)
[2021-02-24] MEDS ORDERED: ENOXAPARIN 100MG/1ML SYRINGE (J1650 PER 10MG) SC ONE (14:00)
[2021-02-24] MEDS ORDERED: NORCO, ANEXSIA 5/325MG TABLET (HYDROcodone/ACETAMINOPHEN) PO ONE (15:10)
[2021-02-24] MEDS ORDERED: MORPHINE 2 MG/ML 1ML VIAL (J2270) IV ONE (15:15)
[2021-02-24] MEDS: methylPREDNISolone 125MG 2ML VIAL IV SCH ×2 (15:27→21:00)
[2021-02-24] MEDS: NORCO, ANEXSIA 5/325MG TABLET (HYDROcodone/ACETAMINOPHEN) PO PRN (18:29)
[2021-02-24] MEDS ORDERED: DEXTROSE 50% 50 ML SYRINGE IV PRN (18:55)
[2021-02-24] MEDS ORDERED: GLUCAGON INJ 1MG VIAL SC PRN (18:55)
[2021-02-24] MEDS ORDERED: GLUCOSE 4GM CHEW TABLET PO PRN (18:55)
[2021-02-24] MEDS ORDERED: metOLazone 2.5 MG TAB PO ONE (19:00)
[2021-02-24 20:07] LABS: CALCIUM LEVEL 8.3 MG/DL (8.8-10.2); CREATININE FOR GFR 2.11 MG/DL (0.55-1.30); GLOMERULAR FILTRATION RATE 24.4 (>39); MAGNESIUM LEVEL 2.3 MG/DL (1.8-2.4); POTASSIUM SERUM 4.9 MEQ/L (3.5-5.1)
--- NOTE | 2021-02-24 20:45 | CR ---
CONSULTATION DATE: 02/24/2021 REQUESTING PHYSICIAN: Katerina Jin M.D. REASON FOR CONSULTATION: Chronic kidney disease (CKD) stage IIIB, borderline stage IV and diastolic congestive heart failure in this patient who was admitted with right femoral neck fracture HISTORY OF PRESENT ILLNESS: Derrick Rodriguez is known to me from a previous hospitalization in July 2020. She is a 75-year-old female with a past medical history of chronic kidney disease (CKD) stage IIIB, borderline stage IV, diastolic congestive heart failure, hypertension, type 2 diabetes, obesity, paroxysmal atrial fibrillation, iron deficiency anemia, peripheral vascular disease and multiple other comorbid conditions mentioned below. She is a resident of [facility]. She sustained a mechanical fall yesterday after tripping over the walker and had a right femoral neck fracture, for which she has been hospitalized and is pending orthopedic intervention with a plan for operating room (OR) tomorrow, Thursday, February 25, 2021. She was admitted with hypertensive urgency with blood pressure on admission of 229/93 and labs on admission showed hemoglobin 9.4, creatinine 2.0, potassium 5.1, GFR 25 and nephrology evaluation was requested for help in the management of her diuresis and for direction of fluid and her hypertensive management in this patient with chronic kidney disease. PAST MEDICAL HISTORY: 1. Chronic kidney disease (CKD) stage IIIB, borderline stage IV. 2. Diastolic congestive heart failure with preserved left ventricular ejection fraction. 3. Hypertension. 4. Type 2 diabetes. 5. Hyperlipidemia. 6. Peripheral vascular disease with history of stenting. 7. Chronic obstructive pulmonary disease (COPD). 8. Paroxysmal atrial fibrillation. 9. History of osteomyelitis of the right medial malleolus. 10. Iron deficiency anemia. 11. Secondary hyperparathyroidism of renal origin. 12. Adenomatous colonic polyps. 13. Morbid obesity. 14. Obstructive sleep apnea. 15. Charcot's joint of the right ankle and foot. 16. Bipolar disorder. 17. Depression. PAST SURGICAL HISTORY: 1. Stenting of the iliac artery April 2020. 2. Left big toe amputation. 3. Left breast lumpectomy. 4. Appendectomy. 5. Hysterectomy. 6. Right ankle surgery. 7. (C) section times two. 8. Colonoscopy with polypectomy. 9. Left foot surgery. 10. Open reduction internal fixation of a right ankle fracture. 11. Open reduction internal fixation of right elbow. ALLERGIES: LATEX, NATURAL RUBBER, MILK. SOCIAL HISTORY: Patient is DO NOT RESUSCITATE (DNR)/DO NOT INTUBATE (DNI). She is an ex-smoker. She is a resident of [facility]. No alcohol or drug use. FAMILY HISTORY: Significant for coronary artery disease in both parents. HOME MEDICATIONS: All reviewed. Please see chart. REVIEW OF SYSTEMS: CONSTITUTIONAL: She denies fevers or chills. EYES: Denies visual changes or tearing. EARS, NOSE AND THROAT (ENT): Denies rhinorrhea or epistaxis. CARDIOVASCULAR: Reports congestive heart failure, peripheral vascular disease, paroxysmal atrial fibrillation. PULMONARY: Reports obstructive sleep apnea. Denies shortness of breath at rest. Reports as needed oxygen use. GASTROINTESTINAL: Denies nausea, vomiting or diarrhea. ENDOCRINE: Reports type 2 diabetes. Reports secondary hyperparathyroidism. Reports obesity. HEMATOLOGIC: Reports iron deficiency anemia and denies senior living anticoagulant use. NEUROLGOCIAL: History of seizures. Denies any recent syncope. MUSCULOSKELETAL: Reports history of various prior joint surgeries. Reports current right femoral fracture. The remainder of the review of systems is negative or as per history of present illness (HPI). PHYSICAL EXAMINATION: VITAL SIGNS: Temperature 98.0, pulse 76respiratory rate 20, blood pressure 169/73, saturating 90 on 8 liter high-flow nasal cannula. INTAKE AND OUTPUT: Is reviewed. Weight in the bed scale today is 104 kg. GENERAL: Patient is seen lying in bed, elderly female, morbidly obese, awake, alert, oriented and in no apparent distress. HEENT: Extraocular muscles are intact. Tongue is moist. NECK: Jugular veins are difficult to assess. HEART SOUNDS: Regular. S1, S2. There is chronic edema in the lower extremities with venous stasis changes, about 1+. LUNGS: Show diminished breath sounds secondary to body habitus. She was on nasal cannula at the time of my visit this morning. There was no accessory muscle use. There was no tachypnea. ABDOMEN: Soft, obese and nontender. EXTREMITIES: Chronic edema. There is tenderness at the right hip. There is a left big toe amputation. There is chronic venous stasis changes. NEUROLOGIC: She is oriented times three. She is cooperative with physical exam and answers simple questions appropriately. SKIN: Warm and dry. LABORATORY STUDIES: Sodium 132, potassium 5.0, bicarbonate 23, BUN 55, creatinine 2.0, magnesium pending. Hemoglobin 9.4, platelets 129, white count 12.5. MICROBIOLOGY: No recent cultures noted. IMAGING: Chest x-ray this morning shows chronic interstitial markings. No new focal opacities. INPATIENT MEDICATIONS: - hydrocodone as needed - Duo-Nebs as needed and every 6 hours - Lipitor 40 mg by mouth at bedtime - carvedilol 6.25 mg by mouth twice a day - docusate 100 mg by mouth at bedtime - Lovenox 100 mg subcutaneous times one - ferrous sulfate 325 mg by mouth daily - Prozac 30 mg by mouth daily - Lasix 40 mg intravenous (IV) times two doses has been given so far - hydralazine 25 mg by mouth every 6 hours - insulin - Isordil 20 mg by mouth twice daily - Xopenex as needed - Solu-Medrol 125 mg IV times one - Solu-Medrol 80 mg IV every six hours - morphine as needed - Zofran as needed - Protonix 40 mg by mouth daily - Metamucil one packet by mouth daily PROBLEMS: 1. Acute kidney injury superimposed on chronic kidney disease (CKD) stage IIIB, borderline stage IV. The patient is in mild to moderate fluid overload. We will diurese her. Orders are written for Lasix 60 mg IV every 8 hours. She will get a dose of metolazone today as well. Renal imaging is requested. Her acute kidney injury thus far is mild and renal function is not that far from her usual baseline. 2. Diastolic congestive heart failure. Patient has mild peripheral edema and she is currently requiring increasing amounts of oxygen and blood pressures have been uncontrolled. Brain natriuretic peptide (BNP) has risen. Orders are written for Lasix 60 mg IV every 8 hours and she will get a dose of metolazone as well and we will see how she does with the same. 3. Hypertension. Blood pressures are uncontrolled. Systolic was 220 on admission and now systolic is mostly 160s to 170s. She is on IV Lasix diuretic and she is also receiving carvedilol, hydralazine and Isordil. 4. Hypoxic respiratory failure. Patient reports a history of chronic obstructive pulmonary disease (COPD) and she tells me she uses oxygen (as needed). Initially when I saw the patient this morning, she was saturating well on 2 liters nasal cannula. However, over the course of the day, her oxygen requirements have significantly increased. We will get a repeat chest x-ray and we will see how she does with increase in diuretics. In the meantime, primary team is also treating her for possible COPD exacerbation. She is getting the usual inhaled steroids, bronchodilators and IV steroids as well. 5. Right femoral neck fracture secondary to mechanical fall. Management is as per orthopedic surgery. Anticoagulation is as per orthopedic surgery. 6. Paroxysmal atrial fibrillation, morbid obesity, iron deficiency anemia, diabetes all complicate her care.
[2021-02-24] MEDS: ATORVASTATIN 20 MG TAB PO SCH (21:00)
[2021-02-24] MEDS: HumaLOG INSULIN (NovoLOG) PER UNIT SC SCH (21:00)
[2021-02-24] MEDS: FUROSEMIDE 100MG/10ML VIAL (J1940) IV SCH (21:01)
[2021-02-24] MEDS: DOCUSATE SODIUM 100MG CAPSULE PO SCH (21:01)
--- NOTE | 2021-02-24 21:52 | REPVR ---
PROCEDURE INFORMATION: Exam: US Retroperitoneal Limited, Kidneys Exam date and time: 02/24/2021 8:39 PM Age: 75 years old Clinical indication: Condition or disease; Kidney or ureter condition; Acute renal insufficiency and chronic kidney disease or failure; Not specified; Additional info: Maximiliano ckd TECHNIQUE: Imaging protocol: Real-time ultrasound of the retroperitoneum with image documentation. Examination was focused on the kidneys. COMPARISON: RENAL US 08/06/2020 8:40 AM FINDINGS: Right kidney: The right kidney measures 13.0 cm in its cephalocaudad dimension and 5.4 x 5.7 cm in diameter. No mass, cyst or hydronephrosis. Left kidney: The left kidney is not well seen but measures 10.2 cm in its cephalocaudad dimension and 5.6 x 4.0 cm in diameter. No mass, cyst or hydronephrosis. Bladder: The urinary bladder is not seen. IMPRESSION: Negative renal sonogram. No hydronephrosis. Electronically signed by: Kareem Bush On 02/24/2021 21:51:39 PM
[2021-02-25] VITALS (10 sets, daily range): BP systolic 109–172; BP diastolic 51–80
[2021-02-25] MEDS: **hydrALAZINE HCL** 25 MG TAB PO SCH ×5 (00:21→23:30)
[2021-02-25] MEDS ORDERED: FUROSEMIDE 100MG/10ML VIAL (J1940) IV SCH (02:00)
[2021-02-25] MEDS: methylPREDNISolone 125MG 2ML VIAL IV SCH ×2 (03:29→09:40)
[2021-02-25] MEDS: FUROSEMIDE 100MG/10ML VIAL (J1940) IV SCH ×3 (03:30→20:22)
[2021-02-25] MEDS: NORCO, ANEXSIA 5/325MG TABLET (HYDROcodone/ACETAMINOPHEN) PO PRN ×2 (03:37→17:37)
[2021-02-25] MEDS: LEVALBUTEROL 1.25 MG/0.5 ML CONCENTRATE NEB INH SCH ×7 (04:00→23:29)
[2021-02-25 05:58] LABS: BASO % 0.2 % (0.0-1.0); HEMATOCRIT 28.6 % (36.0-47.0); HEMOGLOBIN 8.7 g/dl (12.0-15.5); LYMPH # 0.5 10^3/uL (1.5-5.0); LYMPH % 3.8 % (24.0-44.0); MEAN CORPUSCULAR HEMOGLOBIN 29.5 pg (27.0-33.0); MEAN CORPUSCULAR HGB CONC 30.4 g/dl (32.0-36.5); MEAN CORPUSCULAR VOLUME 96.9 fl (80.0-96.0); MONO # 0.3 10^3/uL (0.0-0.8); MONO % 2.6 % (2.0-8.0); NEUTROPHILS # 10.9 10^3/uL (1.5-8.5); NEUTROPHILS % 92.9 % (36.0-66.0); PLATELET COUNT, AUTOMATED 130 10^3/uL (150-450); RED BLOOD COUNT 2.95 10^6/uL (4.00-5.40); WHITE BLOOD COUNT 11.8 10^3/uL (4.0-10.0)
[2021-02-25 06:16] LABS: CREATININE FOR GFR 2.09 MG/DL (0.55-1.30); GLOMERULAR FILTRATION RATE 24.7 (>39)
[2021-02-25] MEDS: HumaLOG INSULIN (NovoLOG) PER UNIT SC SCH ×4 (07:30→20:25)
--- NOTE | 2021-02-25 08:41 | REP ---
INDICATION: hypoxia femoral fracture r/o pe. COMPARISON: 08/12/2020. TECHNIQUE/RADIOTRACER AND DOSE: Following the intravenous administration of 5.5 mCi technetium 99 M tagged MAA and the inhalation of 1.0 mCi technetium 99 M DTPA aerosol, multiple images of the lungs are obtained in various projections. FINDINGS: Once again there are small matching ventilation and perfusion defects. The pattern is quite similar to the prior study. IMPRESSION: Low probability of pulmonary embolism. <Electronically signed by Enoc Olvera > 02/25/21 0829
[2021-02-25] MEDS ORDERED: LEVEMIR (INSULIN DETEMIR) 1 UNITS/0.01ML SC SCH (09:00)
[2021-02-25] MEDS ORDERED: FUROSEMIDE 40MG/4ML VIAL (J1940) IV SCH (09:00)
[2021-02-25] MEDS: FERROUS SULFATE 325MG TAB PO SCH (09:38)
[2021-02-25] MEDS: METAMUCIL (PSYLLIUM) PACKET PO SCH (09:38)
[2021-02-25] MEDS: FLUoxetine 10 MG CAP PO SCH (09:39)
[2021-02-25] MEDS: ISOSORBIDE DIN. (ISORDIL) 20 MG TAB PO SCH ×2 (09:39→20:25)
[2021-02-25] MEDS: PANTOPRAZOLE 40MG TAB (PROTONIX) PO SCH (09:39)
[2021-02-25] MEDS: CARVedilol 6.25 MG TAB PO SCH ×2 (09:40→20:24)
[2021-02-25] MEDS ORDERED: CHLOROTHIAZIDE 500MG VIAL IV ONE (11:25)
--- NOTE | 2021-02-25 12:31 | IPN ---
PROGRESS NOTE DATE: 02/25/2021 SUBJECTIVE: Ms. Meza is seen and examined this morning at the bedside. Overnight she had increasing oxygen requirements and is presently on 8 liters via high flow nasal cannula. Blood pressures have likewise been uncontrolled. She had a V/Q scan which showed low probability of PE. Her diuretics were increased to Lasix 60 mg every 8 hours and she was also given a dose of Metolazone. The patient denies shortness of breath at rest. She is also being treated for COPD exacerbation by the primary team. She has not diuresed successfully thus far. OBJECTIVE: VITAL SIGNS: Temperature 97.9, pulse 76, respiratory rate 19, blood pressure 172/80, saturating 98% on 8 liter high flow nasal cannula. Urine output yesterday 1.2 liters; urine output thus far today 600 mL. Weight on the bed scale today is 103.8 kg. GENERAL: The patient was seen lying in bed, awake, alert, oriented, in no apparent distress. HEENT: Extraocular muscles intact. Tongue is moist. NECK: Jugular veins were a little difficult to assess but did not look elevated. HEART: Sounds regular, S1, S2. 1+ peripheral edema, more prominent in the right lower extremity. LUNGS: Diminished breath sounds bilaterally. She is on high flow nasal cannula. There was no tachypnea, there was no accessory muscle use. There was prolonged expiration and there was scattered wheeze. There were no overt rales or crackles. ABDOMEN; Soft, obese, nontender. GENITOURINARY: Indwelling Michelle catheter. EXTREMITIES: 1+ edema bilaterally, more prominent in the feet and in the right lower extremity. There are venous stasis changes. SKIN: Generalized pallor. NEUROLOGIC: She is oriented x3 and cooperative to physical exam. LABS: White count 11.8, hemoglobin 8.7, platelets 130, sodium 144, potassium 5.0, bicarbonate 25, BUN 62, creatinine 2.0, magnesium 2.3. Renal ultrasound was negative for obstruction. V/Q scan was low probability for PE. INPATIENT MEDICATIONS: She continues on: 1. Lasix 60 mg IV every 8 hours. 2. Dose of Metolazone yesterday evening. 3. Solu-Medrol 80 mg IV every 6 hours. 4. Hydrocodone PRN. 5. Duo-Neb PRN. 6. Lipitor 40 mg PO at bedtime. 7. Carvedilol 6.25 mg PO twice daily. 8. Lovenox 100 mg subcu x1. 9. Ferrous Sulfate 325 mg PO daily. 10. Hydralazine 25 mg PO every 6 hours. 11. Insulin. 12. Isordil 20 mg PO twice daily. 13. Xopenex. 14. Morphine PRN. 15. Zofran PRN. 16. Protonix 40 mg PO daily. PROBLEMS: 1. Acute kidney injury superimposed on CKD, stage 3B, borderline stage 4. The patient has mild/mod fluid overload. Her renal ultrasound was negative for obstruction. She has a Michelle catheter. She is having increase in oxygen requirements. We are diuresing her with Lasix 60 mg IV every 8 hours. She also got a dose of Metolazone yesterday evening. I will monitor her urine output during the course of today along with her oxygen requirements and we will give additional diuretic in the evening if urine output is less than 2 liters today. Her acute kidney injury is mild and renal function is not far from baseline. 2. Mildly decompensated diastolic congestive heart failure. BNP has risen. The patient has elevated blood pressure and mild peripheral edema and increase in oxygen requirements. Continue Lasix 60 mg IV every 8 hours. I will give another dose of Metolazone or Diuril this evening if her urine output is less than 2 liters today. 3. Acute hypoxic respiratory failure. The patient is currently on 8 liters via high flow nasal cannula. She is being diuresed as mentioned above and is also being treated for COPD exacerbation by the primary team. V/Q scan showed low probability for PE. I would get a repeat chest x-ray in the evening if her oxygen requirements do not decrease. She continues on the usual IV steroids, bronchodilators and IV diuretics. 4. Right femoral neck fracture secondary to mechanical fall. Management is as per orthopedic surgery. The patient is still being optimized. 5. Uncontrolled chronic hypertension. Some doses of her medications are held because of hold parameters. She continues on IV Lasix, Carvedilol, Hydralazine and Isordil. I made no changes. 6. Anemia in the setting of iron deficiency and chronic kidney disease. Hemoglobin is 8.7 on the latest labs. She is on oral Ferrous Sulfate. There is no need for transfusion at present. addendum 3pm: Dr Sierra managing diuretics now. Nephrology signing off. Please reconsult if needed. FREDA
--- NOTE | 2021-02-25 14:23 | IPNPDOC ---
Text Note Date of Service The patient was seen on 02/25/21. NOTE Subjective: Patient is breathing improved today, in the morning she was on the 5 L of oxygen. Objective: GENERAL APPEARANCE: NAD HEENT: no scleral icterus, plus JVD, EOMI CARDIOVASCULAR: S1S2 LUNGS: Diminished lung sounds bilaterally ABDOMEN: soft & not tender w palpation MUSCULOSKELETAL: no cyanosis, +2 swelling of lower extremities bilaterally INTEGUMENT: no generalized pallor, superficial wound of the right distal leg covered with dressing NEUROLOGICAL: cranial nerve function from 2-12 intact, follows commands, speech not dysarthric Assessment and plan Patient 75 years old female with past medical history of hypertension, diastolic CHF, chronic kidney disease, type 2 diabetes presented to hospital after mechanical fall. In the ER patient was found to have a right femoral neck fracture Right femoral neck fracture secondary to mechanical fall Patient continues to have high oxygen requirements up to 5 L in the morning Plan for surgery tomorrow, n.p.o. after midnight Acute hypoxemic respiratory failure Most likely secondary to acute diastolic CHF and possible COPD exacerbation VQ scan shows low probability for PE BNP significantly elevated to 5683 Continue diuresis Continue inhalers, prednisone p.o. Acute diastolic CHF BNP elevated Continue Lasix I's and O's nephrology team added metolazone Hypertension Continue home meds with parameters Added amlodipine 10 mg Anemia Secondary to chronic kidney disease and iron deficiency Continue iron supplementation CKD stage III/secondary hyperparathyroidism Nephrology team follows here Type 2 diabetes Insulin sliding scale Diabetes diet I increased the dose of detemir twice daily in order to better control glucose level Hyperlipidemia Continue statin Peripheral vascular disease with vascular stenting on chronic Plavix and aspirin Plavix on hold. Due to mild bleeding from the right distal leg aspirin on hold Right distal leg bleeding Thrombin kit Appreciate/agree with surgical consult Morbid obesity BMI 42/[place] -Complicating care Paroxysmal atrial fibrillation Patient is not on oral anticoagulation for now Heart rate under control Anticoagulation on hold due to orthopedic surgery tomorrow History of right medial malleolus MSSA osteomyelitis Iron deficiency anemia -No acute indication for RBC transfusion Vitamin D deficiency History of adenomatous colonic polyps Code: DNR/DNI DVT prophylaxis with heparin 5000 twice daily VS,Fishbone, I+O VS, Fishbone, I+O Laboratory Tests 02/24/21 18:31 02/25/21 05:38 Vital Signs Date Time Temp Pulse Resp B/P (MAP) Pulse Ox O2 Delivery O2 Flow Rate FiO2 02/25/21 12:00 97.8 72 19 158/78 (104) 96 High Flow Cannula 5.0 I&O- Last 24 Hours up to 6 AM 02/25/21 06:00 Intake Total 340 ml Output Total 1850 ml Balance -1510 ml REYES DE LEON DO Feb 25, 2021 14:23
[2021-02-25] MEDS ORDERED: metOLazone 5 MG TAB PO ONE (15:00)
[2021-02-25 16:58] LABS: HEMATOCRIT 24.7 % (36.0-47.0); HEMOGLOBIN 7.4 g/dl (12.0-15.5)
[2021-02-25] MEDS ORDERED: THROMBIN SOLN 5,000 UNITS VIAL TOP ONE (17:00)
[2021-02-25 17:07] LABS: INR 1.38; PROTHROMBIN TIME 17.4 SECONDS (12.7-14.5)
[2021-02-25] MEDS: DOCUSATE SODIUM 100MG CAPSULE PO SCH (20:24)
[2021-02-25] MEDS: ATORVASTATIN 20 MG TAB PO SCH (20:24)
[2021-02-25] MEDS: LEVEMIR (INSULIN DETEMIR) 1 UNITS/0.01ML SC SCH (20:25)
[2021-02-25] MEDS: HEPARIN SOD (PORCINE) 5000UNITS/ML 1ML VIAL/SYRINGE SQ SCH ×2 (20:26→20:51)
[2021-02-26] VITALS (19 sets, daily range): BP systolic 128–169; BP diastolic 60–85; O2SAT 93–98
[2021-02-26 01:14] LABS: BASO % 0.1 % (0.0-1.0); LYMPH # 0.4 10^3/uL (1.5-5.0); LYMPH % 3.5 % (24.0-44.0); MEAN CORPUSCULAR HEMOGLOBIN 28.9 pg (27.0-33.0); MEAN CORPUSCULAR HGB CONC 30.8 g/dl (32.0-36.5); MEAN CORPUSCULAR VOLUME 93.9 fl (80.0-96.0); MONO # 0.8 10^3/uL (0.0-0.8); MONO % 6.9 % (2.0-8.0); NEUTROPHILS # 10.3 10^3/uL (1.5-8.5); NEUTROPHILS % 89.1 % (36.0-66.0); PLATELET COUNT, AUTOMATED 133 10^3/uL (150-450); RED BLOOD COUNT 2.77 10^6/uL (4.00-5.40); WHITE BLOOD COUNT 11.6 10^3/uL (4.0-10.0)
[2021-02-26] MEDS: FUROSEMIDE 100MG/10ML VIAL (J1940) IV SCH ×2 (03:18→12:07)
[2021-02-26] MEDS: LEVALBUTEROL 1.25 MG/0.5 ML CONCENTRATE NEB INH SCH ×6 (03:35→23:38)
[2021-02-26] MEDS: NORCO, ANEXSIA 5/325MG TABLET (HYDROcodone/ACETAMINOPHEN) PO PRN ×2 (05:15→14:18)
[2021-02-26 05:43] LABS: HEMATOCRIT 26.9 % (36.0-47.0); HEMOGLOBIN 8.2 g/dl (12.0-15.5)
[2021-02-26] MEDS: **hydrALAZINE HCL** 25 MG TAB PO SCH ×3 (05:57→17:12)
[2021-02-26] MEDS: HumaLOG INSULIN (NovoLOG) PER UNIT SC SCH ×4 (06:00→17:10)
--- NOTE | 2021-02-26 07:02 | CR ---
CONSULTATION DATE: 02/25/2021 REASON FOR CONSULTATION: Bleeding from right young. HISTORY OF PRESENT ILLNESS: The patient is a 75-year-old woman who was admitted by the Hospitalist service on the 23 of February. She had apparently suffered a fall with some right hip pain and in the Emergency Department x-rays revealed a right femoral neck fracture. She has multiple underlying medical issues and was admitted by the Hospitalist for management with anticipation of repair of her femoral neck fracture after she is medically optimized. She apparently also suffered an injury to the right young at the time of her fall and has been having oozing from the wound during the course of the day today. The Hospitalist contacted me that several things had been attempted to try to cause cessation of bleeding without success and I am now asked to evaluate the patient. ALLERGIES: Reportedly to: 1. Latex. 2. Natural rubber. 3. Milk. MEDICATIONS: Multiple and as listed in the patient's medical record. MEDICAL HISTORY: The patient's past medical history is fully outlined by the Hospitalist's records but includes: 1. Congestive heart failure. 2. Hypertension. 3. Type 2 diabetes. 4. Hyperlipidemia. 5. Paroxysmal atrial fibrillation. 6. Anemia. 7. Chronic kidney disease stage 3-4. 8. Morbid obesity. 9. Sleep apnea. 10. Other conditions as listed. SURGICAL HISTORY: The patient's past surgical history includes: 1. Appendectomy. 2. Hysterectomy. 3. C-sections x2. 4. Foot surgery on the left. 5. Repair of an ankle fracture. 6. Stenting of her iliac arteries in April of 2020. The remainder of the history is as outlined by the Hospitalist. PHYSICAL EXAMINATION: GENERAL APPEARANCE: The patient is alert and appears oriented and is appropriately responsive to questions. She is not complaining of any significant pain in her right young. EXTREMITIES: Examination reveals in place on the young, consisting of some gauze pads covered by an ABG pad. There is some old blood on the dressing and bandage and the nurse reports that this was applied earlier in the day by the day shift. I removed the dressing. She appears to have a small hematoma of the mid young. There is an overlying, what appears to be skin tear where there is an irregular, almost flap-like laceration noted. When the current dressing was removed, there was no resumption of any bleeding. Inspection, palpation, does not suggest an underlying fracture. There is no sign of infection. IMPRESSION: A small hematoma with overlying skin tear right young. RECOMMENDATIONS: At this point the wound is not bleeding. Because of this, I elected not to intervene. If she were to have resumption of oozing, I would consider closing the wound with Steri-Strips or just continuing with a compressive bandage to address the bleeding. Certainly if she has a resumption of bleeding that does not respond to simple measures, then the Surgical Service could be contacted. Otherwise I do not anticipate following this patient during her stay.
[2021-02-26 08:30] LABS: BASO % 0.1 % (0.0-1.0); LYMPH # 0.6 10^3/uL (1.5-5.0); LYMPH % 4.6 % (24.0-44.0); MEAN CORPUSCULAR HEMOGLOBIN 28.6 pg (27.0-33.0); MEAN CORPUSCULAR HGB CONC 30.1 g/dl (32.0-36.5); MEAN CORPUSCULAR VOLUME 94.8 fl (80.0-96.0); MONO % 8.2 % (2.0-8.0); NEUTROPHILS # 10.5 10^3/uL (1.5-8.5); NEUTROPHILS % 86.8 % (36.0-66.0); PLATELET COUNT, AUTOMATED 133 10^3/uL (150-450); RED BLOOD COUNT 2.87 10^6/uL (4.00-5.40); WHITE BLOOD COUNT 12.1 10^3/uL (4.0-10.0)
[2021-02-26] MEDS: METAMUCIL (PSYLLIUM) PACKET PO SCH (08:35)
[2021-02-26] MEDS: LEVEMIR (INSULIN DETEMIR) 1 UNITS/0.01ML SC SCH ×2 (08:35→21:00)
[2021-02-26] MEDS: HEPARIN SOD (PORCINE) 5000UNITS/ML 1ML VIAL/SYRINGE SQ SCH ×2 (08:38→21:00)
[2021-02-26] MEDS: FERROUS SULFATE 325MG TAB PO SCH (08:46)
[2021-02-26] MEDS: CARVedilol 6.25 MG TAB PO SCH ×2 (08:46→21:00)
[2021-02-26] MEDS: predniSONE 20 MG TAB PO SCH (08:46)
[2021-02-26] MEDS: ISOSORBIDE DIN. (ISORDIL) 20 MG TAB PO SCH ×2 (08:47→21:00)
[2021-02-26] MEDS: FLUoxetine 10 MG CAP PO SCH (08:47)
[2021-02-26] MEDS: PANTOPRAZOLE 40MG TAB (PROTONIX) PO SCH (08:47)
--- NOTE | 2021-02-26 08:53 | REP ---
INDICATION: hypoexmia, h/o copd/chf. COMPARISON: 02/24/2021, 02/23/2021 TECHNIQUE: AP portable semi upright FINDINGS: The lungs are well inflated. Some underlying fibrosis and COPD. Retrocardiac fibrotic change with superimposed atelectasis or infiltrates present with increased density compared to previous study. There is some pulmonary venous hypertension but less compared to the previous study. No zainab edema. No gross effusion on the right, small left effusion difficult to exclude. Cardiomegaly is unchanged. Calcified mildly tortuous aortic arch. Airway midline. Bones with some degenerative changes spine and shoulders. IMPRESSION: 1. A pattern of the underlying COPD and fibrosis, cardiomegaly and vascular congestion with some improvement in vascular congestion. 2. Some increased and retrocardiac left lower lobe density may reflect some basilar fibrosis with the superimposed atelectasis and or infiltrates. Small left effusion cannot be excluded. <Electronically signed by Jose Grimes > 02/26/21 [id number]
[2021-02-26 08:57] LABS: ALBUMIN 2.1 GM/DL (3.2-5.2); BILIRUBIN,TOTAL 0.2 MG/DL (0.2-1.0); CALCIUM LEVEL 7.6 MG/DL (8.8-10.2); CREATININE FOR GFR 2.42 MG/DL (0.55-1.30); GLOMERULAR FILTRATION RATE 20.9 (>39); MAGNESIUM LEVEL 2.5 MG/DL (1.8-2.4); POTASSIUM SERUM 4.6 MEQ/L (3.5-5.1); TOTAL PROTEIN 4.9 GM/DL (6.4-8.2)
[2021-02-26] MEDS ORDERED: metOLazone 5 MG TAB PO SCH (09:00)
[2021-02-26 12:37] LABS: HEMATOCRIT 25.6 % (36.0-47.0); HEMOGLOBIN 7.9 g/dl (12.0-15.5)
[2021-02-26] MEDS ORDERED: FUROSEMIDE 100MG/10ML VIAL (J1940) IV ONE (12:40)
--- NOTE | 2021-02-26 12:49 | IPNPDOC ---
Text Note Date of Service The patient was seen on 02/26/21. NOTE Subjective: Patient is breathing improved today, in the morning she was on the 1 L of oxygen with oxygen saturation 92%. Yesterday patient developed bleeding from right distal leg from superficial wound, it stopped after application of thrombin kit. Objective: GENERAL APPEARANCE: NAD HEENT: no scleral icterus, plus JVD, EOMI CARDIOVASCULAR: S1S2 LUNGS: Diminished lung sounds bilaterally ABDOMEN: soft & not tender w palpation MUSCULOSKELETAL: no cyanosis, +1 swelling pitting edema bilaterally INTEGUMENT: no generalized pallor NEUROLOGICAL: cranial nerve function from 2-12 intact, follows commands, speech not dysarthric Assessment and plan Patient 75 years old female with past medical history of hypertension, diastolic CHF, chronic kidney disease, type 2 diabetes presented to hospital after mechanical fall. In the ER patient was found to have a right femoral neck fracture Right femoral neck fracture secondary to mechanical fall Patient cleared for surgery today. Her breathing status markedly improved Acute hypoxemic respiratory failure Most likely secondary to acute diastolic CHF and possible COPD exacerbation VQ scan shows low probability for PE BNP significantly elevated to 7735 Continue diuresis. I talked to nephrology team, because of oliguria, urine output since yesterday evening 425 cc and rising of BNP, plan to put her on Lasix drip Continue inhalers, prednisone p.o. Acute on chronic kidney failure/secondary hyperparathyroidism Creatinine elevated today to 2.4 Continue to monitor Nephrology team follows patient Acute diastolic CHF BNP elevated Continue Lasix I's and O's nephrology team added metolazone Hypertension Continue home meds with parameters Added amlodipine 10 mg Anemia Secondary to chronic kidney disease and iron deficiency Continue iron supplementation Hemoglobin stable, no indication for transfusion Type 2 diabetes Insulin sliding scale Diabetes diet I increased the dose of detemir twice daily in order to better control glucose level. Glucose level under control Hyperlipidemia Continue statin Peripheral vascular disease with vascular stenting on chronic Plavix and aspirin -Plavix on hold, continue aspirin Morbid obesity BMI 42/[place] -Complicating care Paroxysmal atrial fibrillation Patient is not on oral anticoagulation for now Heart rate under control Anticoagulation on hold due to orthopedic surgery today History of right medial malleolus MSSA osteomyelitis Iron deficiency anemia/right distal leg bleed Patient received 1 unit of blood transfusion yesterday. Hemoglobin improved Right distal leg bleeding was stopped after thrombin kit application Vitamin D deficiency History of adenomatous colonic polyps Code: DNR/DNI DVT prophylaxis with heparin 5000 twice daily VS,Fishbone, I+O VS, Fishbone, I+O Laboratory Tests 02/25/21 16:41 02/26/21 00:59 02/26/21 05:28 02/26/21 05:30 02/26/21 12:18 Vital Signs Date Time Temp Pulse Resp B/P (MAP) Pulse Ox O2 Delivery O2 Flow Rate FiO2 02/26/21 12:07 169/75 02/26/21 12:00 97.4 64 18 96 Nasal Cannula 2.0 I&O- Last 24 Hours up to 6 AM 02/26/21 05:59 Intake Total 2310 ml Output Total 1325 ml Balance 985 ml REYES DE LEON DO Feb 26, 2021 12:49
[2021-02-26] MEDS: ASPIRIN 81 MG CHEW TABLET PO SCH (14:17)
[2021-02-26] MEDS: CHLORTHALIDONE 25 MG TAB PO SCH (14:18)
[2021-02-26] MEDS: FUROSEMIDE injection 250 MG in D5W 225 ML IV SCH (15:18)
[2021-02-26] MEDS ORDERED: ETOMIDATE INJ 20MG/10ML VIAL As Ordered ONE (18:36)
[2021-02-26] MEDS ORDERED: ROCURONIUM BROMIDE 50 MG/5 ML VIAL As Ordered ONE ×2 (18:36→19:52)
[2021-02-26] MEDS ORDERED: fentaNYL 100 MCG/2 ML INJECTION (J3010) As Ordered ONE ×2 (18:37→23:54)
[2021-02-26] MEDS ORDERED: MIDAZOLAM INJ 2MG/2ML VIAL (J2250 PER 1MG) As Ordered ONE (18:38)
[2021-02-26] MEDS ORDERED: ONDANSETRON 4MG/2ML VIAL As Ordered ONE (18:39)
[2021-02-26] MEDS ORDERED: VASOPRESSIN INJ 20 UNITS/ML VIAL As Ordered ONE (18:40)
[2021-02-26] MEDS ORDERED: PHENYLephrine 500MCG 5ML (100MCG/ML) SYRINGE As Ordered ONE (18:40)
[2021-02-26] MEDS ORDERED: TRANEXAMIC ACID 100 MG/ML 10ML VIAL As Ordered ONE ×3 (19:03→20:22)
[2021-02-26] MEDS ORDERED: ceFAZolin 2 GM/D5W 50 ML IV BAG (J0690 PER 500MG) As Ordered ONE (19:06)
[2021-02-26] MEDS ORDERED: ACETAMINOPHEN 1000MG 100ML IV BTL (OFIRMEV) (J0131 PER 10MG) As Ordered ONE (19:46)
[2021-02-26] MEDS: DOCUSATE SODIUM 100MG CAPSULE PO SCH (21:00)
[2021-02-26] MEDS: ATORVASTATIN 20 MG TAB PO SCH (21:00)
[2021-02-26] MEDS ORDERED: VANCOMYCIN 500MG/10ML VIAL As Ordered ONE (22:03)
[2021-02-26] MEDS ORDERED: SUGAMMADEX SODIUM 500 MG/5 ML VIAL (BRIDION) As Ordered ONE (22:38)
[2021-02-26] MEDS ORDERED: BUPIVACAINE LIPOSOME/PF 1.3% 20ML VIAL (13.3MG/ML)(EXPAREL)(C9290 PER1MG) As Ordered ONE (22:42)
[2021-02-26] MEDS: fentaNYL 100 MCG/2 ML INJECTION (J3010) IV PRN (23:58)
[2021-02-27] VITALS (14 sets, daily range): BP systolic 98–143; BP diastolic 47–68
[2021-02-27] MEDS ORDERED: oxyCODONE 5MG TAB PO PRN (00:10)
[2021-02-27] MEDS ORDERED: ONDANSETRON 4MG/2ML VIAL IV PRN (00:10)
[2021-02-27] MEDS ORDERED: HYDROMORPHONE HCL 0.5 MG/ 0.5 ML SYRINGE (J1170 PER 1) IV PRN (00:10)
[2021-02-27] MEDS: fentaNYL 100 MCG/2 ML INJECTION (J3010) IV PRN ×3 (00:16→00:27)
[2021-02-27] MEDS: ONDANSETRON 4MG/2ML VIAL IV PRN ×2 (00:42→13:32)
[2021-02-27] MEDS: HumaLOG INSULIN (NovoLOG) PER UNIT SC SCH ×5 (02:29→20:26)
[2021-02-27] MEDS: LEVALBUTEROL 1.25 MG/0.5 ML CONCENTRATE NEB INH SCH ×2 (03:29→07:44)
[2021-02-27] MEDS: **hydrALAZINE HCL** 25 MG TAB PO SCH ×5 (05:43→23:42)
[2021-02-27 05:53] LABS: BASO % 0.1 % (0.0-1.0); EOS % 0.1 % (0.0-3.0); HEMATOCRIT 32.5 % (36.0-47.0); LYMPH # 0.7 10^3/uL (1.5-5.0); LYMPH % 4.2 % (24.0-44.0); MEAN CORPUSCULAR HEMOGLOBIN 29.7 pg (27.0-33.0); MEAN CORPUSCULAR HGB CONC 31.7 g/dl (32.0-36.5); MEAN CORPUSCULAR VOLUME 93.7 fl (80.0-96.0); MONO # 1.3 10^3/uL (0.0-0.8); MONO % 7.5 % (2.0-8.0); NEUTROPHILS # 14.9 10^3/uL (1.5-8.5); NEUTROPHILS % 87.5 % (36.0-66.0); PLATELET COUNT, AUTOMATED 101 10^3/uL (150-450); RED BLOOD COUNT 3.47 10^6/uL (4.00-5.40)
[2021-02-27 05:55] LABS: HEMOGLOBIN 10.3 g/dl (12.0-15.5)
[2021-02-27 06:13] LABS: CALCIUM LEVEL 7.3 MG/DL (8.8-10.2); CREATININE FOR GFR 2.58 MG/DL (0.55-1.30); GLOMERULAR FILTRATION RATE 19.4 (>39); POTASSIUM SERUM 4.6 MEQ/L (3.5-5.1)
[2021-02-27] MEDS ORDERED: POTASSIUM CHLORIDE 10MEQ SR TABLET PO ONE (07:55)
--- NOTE | 2021-02-27 08:19 | REP ---
INDICATION: SURGERY. COMPARISON: 02/23/2021. TECHNIQUE: AP pelvis. FINDINGS: Right hip prosthesis is in good position. Osseous structures are well-aligned and appear intact. Bilateral iliac stents are noted and there are diffuse vascular calcifications. IMPRESSION: Right hip prosthesis in good position <Electronically signed by Enoc Olvera > 02/27/21 0816
--- NOTE | 2021-02-27 09:12 | RO ---
OPERATIVE NOTE DATE OF OPERATION: 02/27/2021 TIME: 8 p.m. PREOPERATIVE DIAGNOSIS: Right femoral neck fracture, Garden type IV. POSTOPERATIVE DIAGNOSIS: Right femoral neck fracture, Garden type IV. NAME OF OPERATION: Right hip hemiarthroplasty. SURGEON: Beltran Kasper MD GUIDEMAN: None. SUPERVISING ATTENDING: Beltran Kasper MD FINDINGS: The patient had a right femoral neck displaced fracture. INDICATIONS: This is a 75-year-old female with the aforementioned diagnosis of a right femoral neck fracture which was completely displaced. It was a Garden type IV femoral neck fracture. The patient was a resident [facility] and tripped over her walker. She was experiencing 10/10 pain and had inability to bear weight. She has multiple medical comorbidities to include diastolic congestive heart failure, chronic kidney disease and hypertension, type 2 diabetes among many others. She was indicated for the aforementioned surgery to allow weightbearing and in order to decrease her morbidity and mortality over the next 30 days to one year. She was optimized for surgery and received the aforementioned procedure. ANESTHESIA: GETA. TOURNIQUET TIME: None used. ESTIMATED BLOOD LOSS: 1500 mL. IV FLUIDS: Please see anesthesia report. IV ANTIBIOTICS: Please see anesthesia report. IMPLANTS: Synthes DePuy. CULTURES: None. SPECIMENS: None. DESCRIPTION OF PROCEDURE: The patient was met in the preoperative holding area where the patient's operative extremity was signed, the patient's consent was confirmed to be correct, and the patient's identity was confirmed to be correct. The patient was then transported to the operating theater where she was placed in lateral decubitus position on a regular surgical flat-top bed. A safety strap secured the patient to the bed. All bony prominences were well padded. The contralateral lower extremity had an SCD placed. A timeout was called to confirm the correct patient, correct operative extremity and correct consent. All staff were in agreement. We began our procedure by marking out the anatomical landmarks including the greater trochanter, iliac crest and femoral shaft. I made a 6 inch incision longitudinal in nature overlying the greater trochanter. I incised the skin sharply and used meticulous hemostasis and using electrocautery to make my way to the iliotibial band. This was incised sharply and extended proximally and distally approximately 3 inches in each direction. I then used electrocautery to perform a greater trochanter bursectomy in order further identify the gluteus medius and vastus lateralis musculature. I then sharply incised the anterior 1/3 of the gluteus medius insertion along the greater trochanter as well as the vastus lateralis proximal insertion along the greater trochanter and elevated this anteriorly using electrocautery. This gained me access to the femoral joint and I incised the hip capsule sharply. I tagged these in order to facilitate reduction later in the procedure. I identified the femoral neck fracture. At this point in time, I placed a blunt Hohmann along the calcar and used a corkscrew screwdriver to remove the femoral head. This was sized to a 46 mm. I then copiously irrigated the acetabulum and removed the ligamentum teres using electrocautery. I then placed the patient's right lower extremity in adduction, flexion and external rotation in order to further expose the proximal femur. I then proceeded with broaching. I used a box packer to gain entry into the medullary canal followed by canal finder. I then sequentially broached from a size 1 through 3 which was a secure fit. I then trialed a size 3 femoral broach with a 46 mm head and a +0 offset. Once the trial was reduced, she was taken through a supraphysiologic range of motion. She was stable. She had minimal shuck of the joint. Her limb lengths were equal. I then dislocated the hip once more, removed the trial head and neck and removed the #3 broach. I then used a femoral canal maintenance scheduler to clean the proximal femoral canal. I sized my cement restrictor which was a 3. I then placed a cement restrictor in position. We prepared the cement and we used fourth generation cement technique in order to introduce our cement into the proximal femur. I then placed my femoral implant into position and this was held in the correct rotation for approximately 18 minutes. I then removed lap sponge from the acetabulum which was protecting the acetabulum from acquiring cement and placed a 46 mm head with a +0 femoral offset neck under the implant which was secured with five light taps of the mallet and then reduced the hip, took it through a supraphysiologic range of motion which was stable in all planes. I placed 100 mL of Betadine solution into the surgical wound which was then copiously irrigated. I placed one gram of vancomycin powder directly on contact with the implants. I sutured closed the capsule followed by the repair of the gluteus medius and vastus lateralis. I used 0 Vicryl to close the aforementioned. I then closed the IT band with #2 braided polyethylene suture followed by an 0 Stratafix suture. I then closed the adipose tissue using a layered Stratafix suture. I closed the dermal layer using 2-0 Vicryl and closed the skin using metallic samuel. We then placed a Tegaderm wound dressing over the surgical incision. The patient was then extubated without complication and transported to the postanesthesia care unit. The patient will follow the hemiarthroplasty rehabilitative protocol which was weightbearing as tolerated on postop day one. I encourage physical therapy work with the patient for gait ambulation training. Her care will be transferred to the hospitalist service. I recommend that the hospitalist service provide blood thinners equivalent to 81 mg of baby aspirin daily for 30 days. She will follow up in our clinic on the February, for a postoperative wound check. The patient will be educated of the aforementioned findings in her postoperative visit or during rounds in the ensuing days.
[2021-02-27] MEDS: HEPARIN SOD (PORCINE) 5000UNITS/ML 1ML VIAL/SYRINGE SQ SCH ×2 (09:51→20:26)
[2021-02-27] MEDS: FLUoxetine 10 MG CAP PO SCH (09:52)
[2021-02-27] MEDS: ISOSORBIDE DIN. (ISORDIL) 20 MG TAB PO SCH ×2 (09:52→20:35)
[2021-02-27] MEDS: ASPIRIN 81 MG CHEW TABLET PO SCH (09:52)
[2021-02-27] MEDS: LEVEMIR (INSULIN DETEMIR) 1 UNITS/0.01ML SC SCH ×2 (09:52→20:26)
[2021-02-27] MEDS: CARVedilol 6.25 MG TAB PO SCH ×2 (09:53→20:25)
[2021-02-27] MEDS: PANTOPRAZOLE 40MG TAB (PROTONIX) PO SCH (09:54)
[2021-02-27] MEDS: NORCO, ANEXSIA 5/325MG TABLET (HYDROcodone/ACETAMINOPHEN) PO PRN ×3 (09:54→21:59)
[2021-02-27] MEDS: predniSONE 20 MG TAB PO SCH (09:54)
[2021-02-27] MEDS: CHLORTHALIDONE 25 MG TAB PO SCH (09:54)
[2021-02-27] MEDS: FERROUS SULFATE 325MG TAB PO SCH (09:54)
[2021-02-27] MEDS: METAMUCIL (PSYLLIUM) PACKET PO SCH (09:55)
[2021-02-27 10:18] LABS: HEMATOCRIT 32.3 % (36.0-47.0); HEMOGLOBIN 10.4 g/dl (12.0-15.5)
[2021-02-27] MEDS: LEVALBUTEROL 1.25 MG/0.5 ML CONCENTRATE NEB INH PRN (11:07)
[2021-02-27] MEDS: IPRATROPIUM 0.5MG/ALBUTEROL 2.5MG INH SOL UD 3ML (DUONEB) NEB SCH ×2 (13:41→19:40)
--- NOTE | 2021-02-27 14:36 | IPN ---
PROGRESS NOTE DATE: 02/27/2021 SUBJECTIVE: I was called back yesterday to help diurese Ms. Derrick Rodriguez and the patient was noted to have suboptimal urine output and she was subsequently put on a Lasix drip at 8 mg an hour which she responded well to yesterday with 3.1 liters of urine output in the past 24 hours. She is also postop day #1 from right hip hemiarthroplasty with estimated blood loss of 1.5 liters and she was transfused three units of PRBC overnight. Hemoglobin is stable at 10.4 on labs this morning and renal function is also fairly plateaued. Patient was NPO but is now being put on a diet at lunchtime. She was seen and examined this morning at the bedside. She reports pain at the surgical site but denies shortness of breath. OBJECTIVE: VITAL SIGNS: Temperature is 97.4, pulse is 57, respiratory rate is 18, blood pressure is 110/50, saturating 94 to 98% on 3 liters nasal cannula. INTAKE AND OUTPUT: Intake yesterday was 1.2 liters, urine output was 3.1 liters. Blood loss during surgery was 1.5 liters, net negative 3.3 liters, weight on the bed scale today is 106 kg. GENERAL: Patient is seen awake and alert, lying in bed, in mild pain. HEENT: Extraocular muscles are intact. Tongue is moist. NECK: Jugular veins are not elevated. HEART: Heart sounds are bradycardic, S1 and S2. There is 1+ edema in the lower extremities, right more so than left. LUNGS: Symmetric breath sounds bilaterally. No crackle or rale. She is comfortable on nasal cannula. ABDOMEN: Soft, obese and nontender. GENITOURINARY: Indwelling Michelle catheter. EXTREMITIES: There is a dressing over the site of the right hip hemiarthroplasty. There is edema in the legs, 1+. LABORATORY DATA: Sodium is 140, potassium is 4.6, bicarbonate is 24, BUN is 92, creatinine is 2.5, magnesium is 2.5. Albumin is 2.l, hemoglobin is 10.4, platelets are 101,000. IMAGING: I held the Lasix drip. She received it for about 24 hours running at 8 mg an hour. I discontinued her amlodipine and switched her to Chlorthalidone 25 mg p.o. daily. She is on aspirin and Lipitor, Carvedilol 6.25 mg p.o. b.i.d., hydrocodone, Colace, Fluoxetine, Heparin 5000 units sub q. q. 12 hourly, hydralazine 25 mg p.o. q. 6 hourly (hold for systolic less than 150), insulin, Isordil 20 mg p.o. three times a day, Xopenex p.r.n., Zofran p.r.n., Protonix 40 mg p.o. daily, Prednisone 40 mg p.o. daily, she received a dose of potassium today. PROBLEMS: 1. DARRYL superimposed on CKD Stage IIIB, borderline Stage IV. Patient is still in mild fluid overload. She was diuresed the past 24 hours with a Lasix drip at 8 mg an hour. She made a little over 3 liters of urine. However, she did have significant blood loss of 1.5 liters intraoperatively. She was NPO for a day. Her BUN has risen. She is net negative 3 liters in the past 24 hours. She is being resumed back on a diet this afternoon. I will hold the Lasix drip and restart this evening if her oral intake picks up. 2. Chronic diastolic congestive heart failure. We will continue to adjust diuretics in the perioperative state with close eye on renal function. She is status post recent Lasix drip with good diuretic response. 3. Right femoral neck fracture status post hemiarthroplasty, management per Orthopedic Surgery. 4. Hypertension. Blood pressures are rather tightly controlled today. There are holding parameters for her hydralazine. I stopped the amlodipine and switched it to chlorthalidone. She is also on Carvedilol and Isordil.
--- NOTE | 2021-02-27 15:13 | IPNPDOC ---
Text Note Date of Service The patient was seen on 02/27/21. NOTE Subjective: Patient stated that she feels better today, she reported mild sor eness of her right hip. She denies any fever, chest pain, palpitations Objective: GENERAL APPEARANCE: NAD HEENT: no scleral icterus, plus JVD, EOMI CARDIOVASCULAR: S1S2 LUNGS: Diminished lung sounds bilaterally ABDOMEN: soft & not tender w palpation MUSCULOSKELETAL: no cyanosis, +1 swelling pitting edema bilaterally, dressing over right hip INTEGUMENT: no generalized pallor NEUROLOGICAL: cranial nerve function from 2-12 intact, follows commands, speech not dysarthric Assessment and plan Patient 75 years old female with past medical history of hypertension, diastolic CHF, chronic kidney disease, type 2 diabetes presented to hospital after mechanical fall. In the ER patient was found to have a right femoral neck fracture Right femoral neck fracture secondary to mechanical fall Day 1 after hip arthroplasty Continue pain management Acute hypoxemic respiratory failure Most likely secondary to acute diastolic CHF and possible COPD exacerbation VQ scan shows low probability for PE BNP was significantly elevated to 7735, nephrology team started Lasix drip. Negative net 3.3 L. Lasix drip on hold Continue inhalers, tapered down prednisone p.o. Acute on chronic kidney failure/secondary hyperparathyroidism Creatinine elevated today to 2.5 Continue to monitor Nephrology team follows patient Acute diastolic CHF Patient developed good urine output I's and O's Will restart diuresis tomorrow Hypertension Continue home meds with parameters Nephrology team switched amlodipine to chlorthalidone Anemia Secondary to chronic kidney disease and iron deficiency Continue iron supplementation Hemoglobin stable, no indication for transfusion Type 2 diabetes Insulin sliding scale Diabetes diet I increased the dose of detemir twice daily in order to better control glucose level. Glucose level under control Hyperlipidemia Continue statin Peripheral vascular disease with vascular stenting on chronic Plavix and aspirin -Plavix on hold, continue aspirin. I will start anticoagulation with decreased dose of Eliquis 2.5 twice daily due to DARRYL Morbid obesity BMI 42/[place] -Complicating care Paroxysmal atrial fibrillation Patient is not on oral anticoagulation Heart rate under control I will start anticoagulation, we will continue aspirin and hold Plavix History of right medial malleolus MSSA osteomyelitis Iron deficiency anemia/right distal leg bleed Hemoglobin stable Right distal leg bleeding was stopped after thrombin kit application Vitamin D deficiency History of adenomatous colonic polyps Code: DNR/DNI DVT prophylaxis with heparin 5000 twice daily VS,[place], I+O VS, Fishbone, I+O Laboratory Tests 02/27/21 05:31 02/27/21 10:03 Vital Signs Date Time Temp Pulse Resp B/P (MAP) Pulse Ox O2 Delivery O2 Flow Rate FiO2 02/27/21 12:00 97.2 68 18 136/62 (86) 94 Nasal Cannula 3.0 I&O- Last 24 Hours up to 6 AM 02/27/21 05:59 Intake Total 564.0 ml Output Total 4475 ml Balance -3911.0 ml REYES DE LEON Feb 27, 2021 15:13
[2021-02-27] MEDS ORDERED: FUROSEMIDE 100MG/10ML VIAL (J1940) IV ONE (20:00)
[2021-02-27] MEDS: DOCUSATE SODIUM 100MG CAPSULE PO SCH (20:24)
[2021-02-27] MEDS: ATORVASTATIN 20 MG TAB PO SCH (20:24)
[2021-02-27] MEDS: APIXABAN 2.5 MG TAB (ELIQUIS) PO SCH (20:25)
[2021-02-27] MEDS: FUROSEMIDE injection 250 MG in D5W 225 ML IV SCH (22:03)
[2021-02-28] VITALS (22 sets, daily range): BP systolic 137–185; BP diastolic 61–79; O2SAT 94–99
[2021-02-28] MEDS: IPRATROPIUM 0.5MG/ALBUTEROL 2.5MG INH SOL UD 3ML (DUONEB) NEB SCH ×4 (01:31→19:53)
[2021-02-28] MEDS: NORCO, ANEXSIA 5/325MG TABLET (HYDROcodone/ACETAMINOPHEN) PO PRN ×3 (02:20→18:18)
[2021-02-28 04:10] LABS: BASO % 0.1 % (0.0-1.0); HEMATOCRIT 28.9 % (36.0-47.0); HEMOGLOBIN 9.3 g/dl (12.0-15.5); LYMPH # 0.6 10^3/uL (1.5-5.0); MEAN CORPUSCULAR HEMOGLOBIN 29.9 pg (27.0-33.0); MEAN CORPUSCULAR HGB CONC 32.2 g/dl (32.0-36.5); MEAN CORPUSCULAR VOLUME 92.9 fl (80.0-96.0); MONO # 0.7 10^3/uL (0.0-0.8); NEUTROPHILS # 10.7 10^3/uL (1.5-8.5); NEUTROPHILS % 88.5 % (36.0-66.0); RED BLOOD COUNT 3.11 10^6/uL (4.00-5.40); WHITE BLOOD COUNT 12.1 10^3/uL (4.0-10.0)
[2021-02-28 04:27] LABS: CALCIUM LEVEL 7.7 MG/DL (8.8-10.2); CREATININE FOR GFR 2.73 MG/DL (0.55-1.30); GLOMERULAR FILTRATION RATE 18.2 (>39); POTASSIUM SERUM 4.5 MEQ/L (3.5-5.1)
[2021-02-28 04:45] LABS: PLATELET COUNT, AUTOMATED 90 10^3/uL (150-450)
[2021-02-28] MEDS: **hydrALAZINE HCL** 25 MG TAB PO SCH ×3 (05:31→17:33)
[2021-02-28] MEDS: LEVEMIR (INSULIN DETEMIR) 1 UNITS/0.01ML SC SCH ×2 (08:34→20:41)
[2021-02-28] MEDS: HEPARIN SOD (PORCINE) 5000UNITS/ML 1ML VIAL/SYRINGE SQ SCH (08:35)
[2021-02-28] MEDS: CHLORTHALIDONE 25 MG TAB PO SCH (08:36)
[2021-02-28] MEDS: FERROUS SULFATE 325MG TAB PO SCH (08:36)
[2021-02-28] MEDS: APIXABAN 2.5 MG TAB (ELIQUIS) PO SCH ×2 (08:36→20:41)
[2021-02-28] MEDS: PANTOPRAZOLE 40MG TAB (PROTONIX) PO SCH (08:36)
[2021-02-28] MEDS: HumaLOG INSULIN (NovoLOG) PER UNIT SC SCH ×4 (08:37→20:33)
[2021-02-28] MEDS: CARVedilol 6.25 MG TAB PO SCH ×2 (08:37→20:41)
[2021-02-28] MEDS: ASPIRIN 81 MG CHEW TABLET PO SCH (08:37)
[2021-02-28] MEDS: ISOSORBIDE DIN. (ISORDIL) 20 MG TAB PO SCH ×2 (08:38→20:44)
[2021-02-28] MEDS: METAMUCIL (PSYLLIUM) PACKET PO SCH (08:38)
[2021-02-28] MEDS: FLUoxetine 10 MG CAP PO SCH (08:42)
[2021-02-28] MEDS ORDERED: predniSONE 10 MG TAB PO SCH (09:00)
--- NOTE | 2021-02-28 14:43 | IPNPDOC ---
Text Note Date of Service The patient was seen on 02/28/21. NOTE Subjective: No any acute events overnight. Patient denied fever, chills, edna sea, diarrhea or dysuria Objective: GENERAL APPEARANCE: NAD HEENT: no scleral icterus, no JVD, EOMI CARDIOVASCULAR: S1S2 LUNGS: Diminished lung sounds bilaterally ABDOMEN: soft & not tender w palpation MUSCULOSKELETAL: no cyanosis, no swelling of lower extremities bilaterally NEUROLOGICAL: cranial nerve function from 2-12 intact, follows commands, speech not dysarthric Assessment and plan Patient 75 years old female with past medical history of hypertension, diastolic CHF, chronic kidney disease, type 2 diabetes presented to hospital after mechanical fall. In the ER patient was found to have a right femoral neck fracture Right femoral neck fracture secondary to mechanical fall Day 2 after hip arthroplasty Continue pain management Acute hypoxemic respiratory failure Most likely secondary to acute diastolic CHF and possible COPD exacerbation VQ scan shows low probability for PE BNP was significantly elevated to 7735, patient received Lasix drip. Patient developed good urine output. Currently Lasix drip on hold Continue inhalers, tapered down prednisone p.o. Acute on chronic kidney failure/secondary hyperparathyroidism Continue to monitor Nephrology team follows patient Acute diastolic CHF Patient developed good urine output I's and O's Hypertension Continue home meds with parameters Nephrology team switched amlodipine to chlorthalidone Anemia Secondary to chronic kidney disease and iron deficiency Continue iron supplementation Hemoglobin stable, no indication for transfusion Type 2 diabetes Insulin sliding scale Diabetes diet I increased the dose of detemir twice daily in order to better control glucose level. Glucose level under control Hyperlipidemia Continue statin Peripheral vascular disease with vascular stenting on chronic Plavix and aspirin -Plavix on hold, continue aspirin. Continue Eliquis 2.5 twice daily due to DARRYL Morbid obesity BMI 42/[place] -Complicating care Paroxysmal atrial fibrillation Heart rate under control Eliquis 2.5 twice daily History of right medial malleolus MSSA osteomyelitis Iron deficiency anemia/right distal leg bleed Hemoglobin stable Right distal leg bleeding was stopped after thrombin kit application Vitamin D deficiency History of adenomatous colonic polyps Deconditioning PT/OT ARU screen placed Code: DNR/DNI DVT prophylaxis with Eliquis VS,Fishbone, I+O VS, Fishbone, I+O Laboratory Tests 02/28/21 03:40 Vital Signs Date Time Temp Pulse Resp B/P (MAP) Pulse Ox O2 Delivery O2 Flow Rate FiO2 02/28/21 12:00 96.7 66 18 137/61 (86) 96 High Flow Cannula 3.0 I&O- Last 24 Hours up to 6 AM 02/28/21 05:59 Intake Total 620.0 ml Output Total 2750 ml Balance -2130.0 ml REYES DE LEON DO Feb 28, 2021 14:43
[2021-02-28] MEDS: DOCUSATE SODIUM 100MG CAPSULE PO SCH (20:41)
[2021-02-28] MEDS: ATORVASTATIN 20 MG TAB PO SCH (20:41)
[2021-03-01] VITALS (13 sets, daily range): BP systolic 143–175; BP diastolic 64–75; O2SAT 94–98
[2021-03-01] MEDS: **hydrALAZINE HCL** 25 MG TAB PO SCH ×2 (00:19→05:20)
[2021-03-01] MEDS: IPRATROPIUM 0.5MG/ALBUTEROL 2.5MG INH SOL UD 3ML (DUONEB) NEB SCH ×4 (01:30→19:25)
[2021-03-01] MEDS: NORCO, ANEXSIA 5/325MG TABLET (HYDROcodone/ACETAMINOPHEN) PO PRN ×4 (02:10→12:55)
[2021-03-01 05:28] LABS: BASO % 0.1 % (0.0-1.0); HEMATOCRIT 28.1 % (36.0-47.0); HEMOGLOBIN 8.9 g/dl (12.0-15.5); LYMPH % 8.9 % (24.0-44.0); MEAN CORPUSCULAR HEMOGLOBIN 29.7 pg (27.0-33.0); MEAN CORPUSCULAR HGB CONC 31.7 g/dl (32.0-36.5); MEAN CORPUSCULAR VOLUME 93.7 fl (80.0-96.0); MONO # 1.2 10^3/uL (0.0-0.8); MONO % 10.9 % (2.0-8.0); NEUTROPHILS # 8.8 10^3/uL (1.5-8.5); NEUTROPHILS % 79.6 % (36.0-66.0); WHITE BLOOD COUNT 11.1 10^3/uL (4.0-10.0)
[2021-03-01 05:39] LABS: PLATELET COUNT, AUTOMATED 92 10^3/uL (150-450)
[2021-03-01 05:53] LABS: CALCIUM LEVEL 7.9 MG/DL (8.8-10.2); CREATININE FOR GFR 2.31 MG/DL (0.55-1.30); POTASSIUM SERUM 3.9 MEQ/L (3.5-5.1)
[2021-03-01] MEDS: HumaLOG INSULIN (NovoLOG) PER UNIT SC SCH ×4 (08:11→20:54)
[2021-03-01] MEDS: ISOSORBIDE DIN. (ISORDIL) 20 MG TAB PO SCH ×2 (08:11→21:30)
[2021-03-01] MEDS: LEVEMIR (INSULIN DETEMIR) 1 UNITS/0.01ML SC SCH ×2 (08:11→21:29)
[2021-03-01] MEDS: FLUoxetine 10 MG CAP PO SCH (08:12)
[2021-03-01] MEDS: FERROUS SULFATE 325MG TAB PO SCH (08:12)
[2021-03-01] MEDS: ASPIRIN 81 MG CHEW TABLET PO SCH (08:12)
[2021-03-01] MEDS: CHLORTHALIDONE 25 MG TAB PO SCH (08:12)
[2021-03-01] MEDS: METAMUCIL (PSYLLIUM) PACKET PO SCH (08:13)
[2021-03-01] MEDS: CARVedilol 6.25 MG TAB PO SCH ×2 (08:13→21:30)
[2021-03-01] MEDS: APIXABAN 2.5 MG TAB (ELIQUIS) PO SCH ×2 (08:13→21:30)
[2021-03-01] MEDS: PANTOPRAZOLE 40MG TAB (PROTONIX) PO SCH (08:13)
[2021-03-01] MEDS ORDERED: predniSONE 20 MG TAB PO SCH (09:00)
--- NOTE | 2021-03-01 11:56 | IPNPDOC ---
Text Note Date of Service The patient was seen on 03/01/21. NOTE Subjective: No any acute events overnight. Patient reports the generalized w eakness. Objective: GENERAL APPEARANCE: NAD HEENT: no scleral icterus, no JVD, EOMI CARDIOVASCULAR: S1S2 LUNGS: Diminished lung sounds bilaterally ABDOMEN: soft & not tender w palpation MUSCULOSKELETAL: no cyanosis, no swelling of lower extremities bilaterally NEUROLOGICAL: cranial nerve function from 2-12 intact, follows commands, speech not dysarthric Assessment and plan Patient 75 years old female with past medical history of hypertension, diastolic CHF, chronic kidney disease, type 2 diabetes presented to hospital after mechanical fall. In the ER patient was found to have a right femoral neck fracture Right femoral neck fracture secondary to mechanical fall Day 3 after hip arthroplasty Continue pain management Acute hypoxemic respiratory failure Most likely secondary to acute diastolic CHF and possible COPD exacerbation VQ scan shows low probability for PE BNP was significantly elevated to 7735, patient received Lasix drip. Patient developed good urine output. Currently Lasix drip on hold. BNP trended down Continue inhalers, tapered down prednisone p.o. Acute on chronic kidney failure/secondary hyperparathyroidism Continue to monitor Nephrology team follows patient Acute diastolic CHF Patient developed good urine output I's and O's Hypertension Continue home meds with parameters Nephrology team switched amlodipine to chlorthalidone I added amlodipine 10 mg today in order to better control blood pressure. Systolic blood pressure in the morning 175 Anemia Secondary to chronic kidney disease and iron deficiency Continue iron supplementation Hemoglobin stable, no indication for transfusion Type 2 diabetes Insulin sliding scale Diabetes diet I increased the dose of detemir twice daily in order to better control glucose level. Glucose level under control Hyperlipidemia Continue statin Peripheral vascular disease with vascular stenting on chronic Plavix and aspirin -Plavix on hold, continue aspirin. Continue Eliquis 2.5 twice daily due to DARRYL Morbid obesity BMI 42/[place] -Complicating care Paroxysmal atrial fibrillation Heart rate under control Eliquis 2.5 twice daily History of right medial malleolus MSSA osteomyelitis Iron deficiency anemia/right distal leg bleed Hemoglobin stable Right distal leg bleeding was stopped after thrombin kit application Vitamin D deficiency History of adenomatous colonic polyps Deconditioning PT/OT ARU screen placed Code: DNR/DNI DVT prophylaxis with Eliquis VS,Fishbone, I+O VS, Fishbone, I+O Laboratory Tests 03/01/21 04:29 Vital Signs Date Time Temp Pulse Resp B/P (MAP) Pulse Ox O2 Delivery O2 Flow Rate FiO2 03/01/21 08:42 16 97 Nasal Cannula 2.0 03/01/21 08:11 175/75 03/01/21 08:00 98.1 3 I&O- Last 24 Hours up to 6 AM 03/01/21 05:59 Intake Total 480 ml Output Total 2075 ml Balance -1595 ml REYES DE LEON DO Mar 01, 2021 11:56
--- NOTE | 2021-03-01 13:21 | IPN ---
NEPHROLOGY PROGRESS NOTE DATE: 03/01/2021 SUBJECTIVE: Ms. Rodriguez seen this morning on her bedside. She is feeling better today and reports that her bleeding has improved. Her right hip pain has also improved where she had surgery for hip fracture. She denies any nausea or vomiting today. PHYSICAL EXAMINATION: Temperature 98 degrees Fahrenheit, heart rate 80 per minute and respiratory rate 16 per minute. Blood pressure 175/75 mmHg and oxygen saturation 97%. Head: Atraumatic. Neck: Supple and JVD does not seem to be elevated at present. Heart: Sounds are regular. Lungs: With slightly diminished breath sounds and a few basilar rales. Abdomen: Soft and nontender and bowel sounds are normal. Extremities: Without any cyanosis or clubbing. Neurologically: She is grossly intact. LABORATORY DATA: Today's labs show: Sodium 143, potassium 3.9, CO2 28, BUN 92, creatinine 2.31, glucose 190 and calcium 7.9. PROBLEMS/PLAN: 1. Acute kidney injury superimposed on chronic kidney disease: Slight improvement in kidney function is noticed over the last 24 hours. Electrolytes are stable at present. 2. Congestive heart failure: Her volume status has improved significantly. I.V. Lasix drip has been stopped and I will consider resuming a daily dose of diuretic after checking her labs tomorrow. Even today she has a negative fluid balance so far. 3. Anemia: Her anemia is chronic and does not need any urgent intervention. Hemoglobin is 8.9 and hematocrit 28 today. She already had transfusion of 5 units of packed RBCs. 4. Right hip fracture status post surgery: Patient is making progress and feeling better now. 5. Hypertension: Blood pressure somewhat high. She is now on amlodipine 10 mg daily and her prednisone is being cut down.
[2021-03-01] MEDS: ATORVASTATIN 20 MG TAB PO SCH (21:30)
[2021-03-01] MEDS: DOCUSATE SODIUM 100MG CAPSULE PO SCH (21:30)
[2021-03-02] VITALS (19 sets, daily range): BP systolic 118–156; BP diastolic 59–81; O2SAT 86–96
[2021-03-02] MEDS: LEVALBUTEROL 1.25 MG/0.5 ML CONCENTRATE NEB INH PRN (00:19)
[2021-03-02] MEDS: IPRATROPIUM 0.5MG/ALBUTEROL 2.5MG INH SOL UD 3ML (DUONEB) NEB SCH ×4 (01:10→19:37)
[2021-03-02] MEDS: NORCO, ANEXSIA 5/325MG TABLET (HYDROcodone/ACETAMINOPHEN) PO PRN ×3 (06:06→18:12)
[2021-03-02 06:55] LABS: BASO % 0.1 % (0.0-1.0); EOS # 0.1 10^3/uL (0.0-0.5); EOS % 0.7 % (0.0-3.0); HEMATOCRIT 28.2 % (36.0-47.0); HEMOGLOBIN 8.9 g/dl (12.0-15.5); LYMPH # 1.1 10^3/uL (1.5-5.0); LYMPH % 11.4 % (24.0-44.0); MEAN CORPUSCULAR HEMOGLOBIN 30.2 pg (27.0-33.0); MEAN CORPUSCULAR HGB CONC 31.6 g/dl (32.0-36.5); MEAN CORPUSCULAR VOLUME 95.6 fl (80.0-96.0); MONO % 10.8 % (2.0-8.0); NEUTROPHILS # 7.2 10^3/uL (1.5-8.5); NEUTROPHILS % 76.5 % (36.0-66.0); PLATELET COUNT, AUTOMATED 102 10^3/uL (150-450); RED BLOOD COUNT 2.95 10^6/uL (4.00-5.40); WHITE BLOOD COUNT 9.4 10^3/uL (4.0-10.0)
[2021-03-02 07:26] LABS: CALCIUM LEVEL 8.2 MG/DL (8.8-10.2); CREATININE FOR GFR 2.34 MG/DL (0.55-1.30); GLOMERULAR FILTRATION RATE 21.7 (>39); POTASSIUM SERUM 4.1 MEQ/L (3.5-5.1)
[2021-03-02] MEDS: ASPIRIN 81 MG CHEW TABLET PO SCH (08:53)
[2021-03-02] MEDS: PANTOPRAZOLE 40MG TAB (PROTONIX) PO SCH (08:53)
[2021-03-02] MEDS: predniSONE 10 MG TAB PO SCH (08:53)
[2021-03-02] MEDS: FLUoxetine 10 MG CAP PO SCH (08:53)
[2021-03-02] MEDS: FERROUS SULFATE 325MG TAB PO SCH (08:53)
[2021-03-02] MEDS: APIXABAN 2.5 MG TAB (ELIQUIS) PO SCH ×2 (08:53→20:40)
[2021-03-02] MEDS: CHLORTHALIDONE 25 MG TAB PO SCH (08:53)
[2021-03-02] MEDS: CARVedilol 6.25 MG TAB PO SCH ×2 (08:54→20:41)
[2021-03-02] MEDS: HumaLOG INSULIN (NovoLOG) PER UNIT SC SCH ×4 (08:55→20:48)
[2021-03-02] MEDS: LEVEMIR (INSULIN DETEMIR) 1 UNITS/0.01ML SC SCH ×2 (08:55→20:41)
[2021-03-02] MEDS: METAMUCIL (PSYLLIUM) PACKET PO SCH (08:55)
[2021-03-02] MEDS: ISOSORBIDE DIN. (ISORDIL) 20 MG TAB PO SCH ×2 (08:57→20:46)
--- NOTE | 2021-03-02 11:55 | IPNPDOC ---
Text Note Date of Service The patient was seen on 03/02/21. NOTE Subjective: Patient stated that she feels much better today, more energy. No any acute events overnight Objective: GENERAL APPEARANCE: NAD HEENT: no scleral icterus, no JVD, EOMI CARDIOVASCULAR: S1S2 LUNGS: Diminished lung sounds bilaterally ABDOMEN: soft & not tender w palpation MUSCULOSKELETAL: no cyanosis, no swelling of lower extremities bilaterally NEUROLOGICAL: cranial nerve function from 2-12 intact, follows commands, speech not dysarthric Assessment and plan Patient 75 years old female with past medical history of hypertension, diastolic CHF, chronic kidney disease, type 2 diabetes presented to hospital after mechanical fall. In the ER patient was found to have a right femoral neck fracture Right femoral neck fracture secondary to mechanical fall Day 4 after hip arthroplasty Continue pain management Acute hypoxemic respiratory failure Most likely secondary to acute diastolic CHF and possible COPD exacerbation VQ scan shows low probability for PE BNP was significantly elevated to 7735, patient received Lasix drip. Patient developed good urine output. Currently Lasix drip on hold. BNP trended down Continue inhalers, tapered down prednisone p.o. Acute on chronic kidney failure/secondary hyperparathyroidism Improved Continue to monitor Nephrology team follows patient Acute diastolic CHF Patient developed good urine output I's and O's Continue cardiac diet Hypertension Continue home meds with parameters Nephrology team switched amlodipine to chlorthalidone I added amlodipine 10 mg in order to better control blood pressure. Blood pres sure improved today Anemia Secondary to chronic kidney disease and iron deficiency Continue iron supplementation Hemoglobin stable, no indication for transfusion Type 2 diabetes Insulin sliding scale Diabetes diet I increased the dose of detemir twice daily in order to better control glucose level. Glucose level under control Hyperlipidemia Continue statin Peripheral vascular disease with vascular stenting on chronic Plavix and aspirin -Plavix on hold, continue aspirin. Continue Eliquis 2.5 twice daily due to DARRYL Morbid obesity BMI 42/[place] -Complicating care Paroxysmal atrial fibrillation Heart rate under control Eliquis 2.5 twice daily History of right medial malleolus MSSA osteomyelitis Iron deficiency anemia/right distal leg bleed Hemoglobin stable Right distal leg bleeding was stopped after thrombin kit application Vitamin D deficiency History of adenomatous colonic polyps Deconditioning PT/OT ARU screen placed Code: DNR/DNI DVT prophylaxis with Eliquis VS,Fishbone, I+O VS, Fishbone, I+O Laboratory Tests 03/02/21 05:46 Vital Signs Date Time Temp Pulse Resp B/P (MAP) Pulse Ox O2 Delivery O2 Flow Rate FiO2 03/02/21 08:54 78 156/62 03/02/21 08:20 98.3 20 94 High Flow Cannula 1.0 I&O- Last 24 Hours up to 6 AM 03/02/21 06:00 Intake Total 1118 ml Output Total 450 ml Balance 668 ml REYES DE LEON DO Mar 02, 2021 11:55
--- NOTE | 2021-03-02 12:16 | IPN ---
NEPHROLOGY PROGRESS NOTE DATE: 03/02/2021 SUBJECTIVE: Mrs. Rodriguez is seen this morning at her bedside. She is feeling much today and denies any dyspnea, chest pain, nausea or vomiting. OBJECTIVE: PHYSICAL EXAMINATION: VITAL SIGNS: Temperature 98.3 degrees Fahrenheit, heart rate is 78 per minute and respiratory rate is 20 per minute. Blood pressure 156/62 mm of mercury and oxygen saturation is 94% on one liter oxygen. HEENT: Head is atraumatic. NECK: Supple and JVD not abnormally elevated. HEART: Sounds are regular. LUNGS: Clear to auscultation. ABDOMEN: Soft and nontender and bowel sounds are normal. EXTREMITIES: Without any cyanosis or clubbing. She has a bruising on her right lateral knee. Her right hip area surgical incision is healing and clean. LABORATORY STUDIES: Today's labs show a WBC count of 9.4, hemoglobin 8.9 and hematocrit 28.2. Sodium 146, potassium 4.1, CO2 28, BUN 92 and creatinine 2.34. PROBLEMS: 1. Acute kidney injury superimposed on chronic kidney disease - kidney function is stable and essentially unchanged over the last 24 hours. She has no uremic symptoms and we will continue to monitor her closely. 2. Congestive heart failure her volume status seems clinically well compensated. I will check a BNP level tomorrow for monitoring. She is currently off diuretics. 3. Hypernatremia she has borderline hypernatremia while not receiving any diuretics. At this point we will watch and recheck her electrolytes tomorrow. Her oral intake is adequate, so I anticipate that sodium level will improve to normal in tomorrow's labs. 4. Right hip fracture, status post surgery - The patient is making good progress and doing well. 5. Anemia her anemia is stable and she remains on oral iron supplement.
[2021-03-02] MEDS: DOCUSATE SODIUM 100MG CAPSULE PO SCH (20:40)
[2021-03-02] MEDS: ATORVASTATIN 20 MG TAB PO SCH (20:42)
[2021-03-03] VITALS (12 sets, daily range): BP systolic 116–172; BP diastolic 60–73; O2SAT 90–97
[2021-03-03] MEDS: IPRATROPIUM 0.5MG/ALBUTEROL 2.5MG INH SOL UD 3ML (DUONEB) NEB SCH ×5 (02:00→20:27)
[2021-03-03 05:42] LABS: EOS # 0.1 10^3/uL (0.0-0.5); EOS % 0.9 % (0.0-3.0); HEMATOCRIT 26.8 % (36.0-47.0); HEMOGLOBIN 8.3 g/dl (12.0-15.5); MEAN CORPUSCULAR HEMOGLOBIN 29.6 pg (27.0-33.0); MEAN CORPUSCULAR VOLUME 95.7 fl (80.0-96.0); MONO # 0.8 10^3/uL (0.0-0.8); MONO % 8.4 % (2.0-8.0); NEUTROPHILS # 7.8 10^3/uL (1.5-8.5); NEUTROPHILS % 80.2 % (36.0-66.0); PLATELET COUNT, AUTOMATED 125 10^3/uL (150-450); WHITE BLOOD COUNT 9.8 10^3/uL (4.0-10.0)
[2021-03-03 06:00] LABS: CALCIUM LEVEL 7.6 MG/DL (8.8-10.2); CREATININE FOR GFR 2.02 MG/DL (0.55-1.30); GLOMERULAR FILTRATION RATE 25.7 (>39); POTASSIUM SERUM 4.6 MEQ/L (3.5-5.1)
[2021-03-03] MEDS: NORCO, ANEXSIA 5/325MG TABLET (HYDROcodone/ACETAMINOPHEN) PO PRN (06:00)
[2021-03-03] MEDS: FERROUS SULFATE 325MG TAB PO SCH (08:31)
[2021-03-03] MEDS: APIXABAN 2.5 MG TAB (ELIQUIS) PO SCH ×2 (08:31→19:54)
[2021-03-03] MEDS: HumaLOG INSULIN (NovoLOG) PER UNIT SC SCH ×4 (08:31→20:04)
[2021-03-03] MEDS: ASPIRIN 81 MG CHEW TABLET PO SCH (08:31)
[2021-03-03] MEDS: CARVedilol 6.25 MG TAB PO SCH ×2 (08:31→19:54)
[2021-03-03] MEDS: predniSONE 10 MG TAB PO SCH (08:32)
[2021-03-03] MEDS: METAMUCIL (PSYLLIUM) PACKET PO SCH (08:32)
[2021-03-03] MEDS: FLUoxetine 10 MG CAP PO SCH (08:32)
[2021-03-03] MEDS: CHLORTHALIDONE 25 MG TAB PO SCH (08:32)
[2021-03-03] MEDS: PANTOPRAZOLE 40MG TAB (PROTONIX) PO SCH (08:32)
[2021-03-03] MEDS: LEVEMIR (INSULIN DETEMIR) 1 UNITS/0.01ML SC SCH ×2 (08:33→19:55)
[2021-03-03] MEDS: ISOSORBIDE DIN. (ISORDIL) 20 MG TAB PO SCH ×2 (08:35→20:05)
[2021-03-03] MEDS ORDERED: FUROSEMIDE 40 MG TAB PO ONE (09:25)
--- NOTE | 2021-03-03 11:56 | IPNPDOC ---
Text Note Date of Service The patient was seen on 03/03/21. NOTE Subjective: No new acute events overnight. Patient denies fever, chills, nausea vomiting diarrhea dysuria Objective: GENERAL APPEARANCE: NAD HEENT: no scleral icterus, no JVD, EOMI CARDIOVASCULAR: S1S2 LUNGS: Diminished lung sounds bilaterally ABDOMEN: soft & not tender w palpation MUSCULOSKELETAL: no cyanosis, no swelling of lower extremities bilaterally NEUROLOGICAL: cranial nerve function from 2-12 intact, follows commands, speech not dysarthric Assessment and plan Patient 75 years old female with past medical history of hypertension, diastolic CHF, chronic kidney disease, type 2 diabetes presented to hospital after mechanical fall. In the ER patient was found to have a right femoral neck fracture Right femoral neck fracture secondary to mechanical fall Day 5after hip arthroplasty Continue pain management Acute hypoxemic respiratory failure Most likely secondary to acute diastolic CHF and possible COPD exacerbation VQ scan shows low probability for PE BNP was significantly elevated to 7735, patient received Lasix drip. Patient developed good urine output. Currently Lasix drip on hold. BNP trended down Continue inhalers, tapered down prednisone p.o. Resolved. Patient currently on the 1 L of oxygen and its her baseline Acute on chronic kidney failure/secondary hyperparathyroidism Improved Continue to monitor Nephrology team follows patient Acute diastolic CHF Patient developed good urine output I's and O's Continue cardiac diet Hypertension Continue home meds with parameters Nephrology team switched amlodipine to chlorthalidone I added amlodipine 10 mg in order to better control blood pressure. Blood pressure improved today Anemia Secondary to chronic kidney disease and iron deficiency Continue iron supplementation Hemoglobin stable, no indication for transfusion Type 2 diabetes Insulin sliding scale Diabetes diet I increased the dose of detemir twice daily in order to better control glucose level. Glucose level under control Hyperlipidemia Continue statin Peripheral vascular disease with vascular stenting on chronic Plavix and aspirin -Plavix on hold, continue aspirin. Continue Eliquis 2.5 twice daily due to DARRYL Morbid obesity BMI 42/[place] -Complicating care Paroxysmal atrial fibrillation Heart rate under control Eliquis 2.5 twice daily History of right medial malleolus MSSA osteomyelitis Iron deficiency anemia/right distal leg bleed Hemoglobin stable Right distal leg bleeding was stopped after thrombin kit application Vitamin D deficiency History of adenomatous colonic polyps Deconditioning PT/OT ARU screen placed Code: DNR/DNI DVT prophylaxis with Eliquis VS,Fishbone, I+O VS, Fishbone, I+O Laboratory Tests 03/03/21 04:58 Vital Signs Date Time Temp Pulse Resp B/P (MAP) Pulse Ox O2 Delivery O2 Flow Rate FiO2 03/03/21 09:58 19 03/03/21 09:00 1.0 03/03/21 08:31 79 143/81 03/03/21 08:00 97 Nasal Cannula 03/03/21 08:00 97.7 I&O- Last 24 Hours up to 6 AM 03/03/21 06:00 Intake Total 1410 ml Output Total 0 ml Balance 1410 ml REYES DE LEON DO Mar 03, 2021 11:56
--- NOTE | 2021-03-03 12:48 | IPN ---
NEPHROLOGY PROGRESS NOTE DATE: 03/03/2021 SUBJECTIVE: Ms. Rodriguez is seen this morning on her bedside. She is feeling well and just finished eating her breakfast. No nausea, vomiting, dyspnea or chest pain. She has been acid-fast bacilli. PHYSICAL EXAMINATION: Temperature 97.7 degrees Fahrenheit, heart rate 80 per minute and respiratory rate 18 per minute. Blood pressure 143/80 mmHg and oxygen saturation 95%. Head: Atraumatic. Neck: Supple and JVD did not seem to be abnormally elevated. Heart: Sounds are regular. Lungs: With slightly diminished breath sounds at bases. Abdomen: Soft and nontender and bowel sounds are normal. Extremities: Without any cyanosis or clubbing. She has large ecchymosis on the lateral right knee. She had a right hip fracture and surgical incision is clean. Neurologically: She is awake, alert and oriented times 3. LABORATORY DATA: Today's labs show: White blood cell count 9.8, hemoglobin 8.3, hematocrit 26.8. Sodium 143, potassium 4.6, BUN 88, creatinine 2. BNP level is 2807. PROBLEMS/PLAN: 1. Acute renal failure superimposed on chronic kidney disease: Kidney function has gradually improved. At present she has no uremic symptoms and we will continue to monitor her kidney function. 2. Congestive heart failure: Clinically she looks slightly decompensated and I am going to give her 1 dose of furosemide 40 mg today. She was quite decompensated on admission and was diuresed with I.V. Lasix drip. She will probably need snf diuretic. 3. Anemia: Her anemia is slightly worse and most likely this is related to hemodilution. She remains on oral iron supplement.
[2021-03-03] MEDS: DOCUSATE SODIUM 100MG CAPSULE PO SCH (19:53)
[2021-03-03] MEDS: ATORVASTATIN 20 MG TAB PO SCH (19:53)
[2021-03-03] MEDS ORDERED: **hydrALAZINE HCL** 25 MG TAB PO SCH (21:00)
[2021-03-04 05:56] VITALS: BP 182/72
[2021-03-04] MEDS: IPRATROPIUM 0.5MG/ALBUTEROL 2.5MG INH SOL UD 3ML (DUONEB) NEB SCH (07:22)
[2021-03-04] MEDS: HumaLOG INSULIN (NovoLOG) PER UNIT SC SCH ×2 (07:30→11:46)
[2021-03-04] MEDS: METAMUCIL (PSYLLIUM) PACKET PO SCH (09:00)
[2021-03-04] MEDS: CHLORTHALIDONE 25 MG TAB PO SCH (09:00)
[2021-03-04] MEDS: ISOSORBIDE DIN. (ISORDIL) 20 MG TAB PO SCH (09:00)
[2021-03-04 09:11] LABS: BASO % 0.1 % (0.0-1.0); EOS # 0.3 10^3/uL (0.0-0.5); EOS % 2.3 % (0.0-3.0); HEMATOCRIT 29.7 % (36.0-47.0); HEMOGLOBIN 9.1 g/dl (12.0-15.5); LYMPH # 1.3 10^3/uL (1.5-5.0); LYMPH % 11.2 % (24.0-44.0); MEAN CORPUSCULAR HEMOGLOBIN 29.7 pg (27.0-33.0); MEAN CORPUSCULAR HGB CONC 30.6 g/dl (32.0-36.5); MEAN CORPUSCULAR VOLUME 97.1 fl (80.0-96.0); MONO % 9.3 % (2.0-8.0); NEUTROPHILS # 8.5 10^3/uL (1.5-8.5); NEUTROPHILS % 76.4 % (36.0-66.0); PLATELET COUNT, AUTOMATED 164 10^3/uL (150-450); RED BLOOD COUNT 3.06 10^6/uL (4.00-5.40); WHITE BLOOD COUNT 11.1 10^3/uL (4.0-10.0)
[2021-03-04] MEDS: FLUoxetine 10 MG CAP PO SCH (09:31)
[2021-03-04] MEDS: CARVedilol 6.25 MG TAB PO SCH (09:31)
[2021-03-04] MEDS: PANTOPRAZOLE 40MG TAB (PROTONIX) PO SCH (09:31)
[2021-03-04] MEDS: predniSONE 10 MG TAB PO SCH (09:32)
[2021-03-04] MEDS: FERROUS SULFATE 325MG TAB PO SCH (09:32)
[2021-03-04] MEDS: APIXABAN 2.5 MG TAB (ELIQUIS) PO SCH (09:32)
[2021-03-04] MEDS: ASPIRIN 81 MG CHEW TABLET PO SCH (09:32)
[2021-03-04] MEDS: LEVEMIR (INSULIN DETEMIR) 1 UNITS/0.01ML SC SCH (09:33)
[2021-03-04 09:40] LABS: BILIRUBIN,TOTAL 0.4 MG/DL (0.2-1.0); CALCIUM LEVEL 8.2 MG/DL (8.8-10.2); CREATININE FOR GFR 1.71 MG/DL (0.55-1.30); GLOMERULAR FILTRATION RATE 31.2 (>39); MAGNESIUM LEVEL 2.7 MG/DL (1.8-2.4); POTASSIUM SERUM 4.4 MEQ/L (3.5-5.1); TOTAL PROTEIN 4.8 GM/DL (6.4-8.2)
[2021-03-04] MEDS ORDERED: **hydrALAZINE** 10 MG TAB PO ONE (10:05)
[2021-03-04] MEDS ORDERED: HYDR-3715 PO (10:28)
[2021-03-04] MEDS ORDERED: INSUDET SC (10:28)
[2021-03-04] MEDS ORDERED: PRED10TA2 PO (10:28)
[2021-03-04] MEDS ORDERED: ELIQ2.5T PO (10:28)
[2021-03-04] MEDS ORDERED: AMLO1TAB25 PO (10:28)
[2021-03-04] MEDS ORDERED: CHLO50TA PO (10:28)
[2021-03-04 11:52] VITALS: BP 160/72
--- NOTE | 2021-03-04 11:53 | IPN ---
NEPHROLOGY PROGRESS NOTE DATE: 03/04/2021 SUBJECTIVE: Ms. Rodriguez is seen this morning on her bedside. She is feeling well and wants to back to her assisted living facility. She denies any nausea or vomiting. She has no fever or chills. Her right hip is feeling better and pain has improved following her surgery. PHYSICAL EXAMINATION: VITAL SIGNS: Temperature 97.2 degrees Fahrenheit, heart rate 68 per minute, respiratory rate 20 per minute, blood pressure 182/72 mmHg, oxygen saturation 93%. HEAD: Atraumatic. NECK: Supple and jugular venous distention (JVD) difficult to be assessed. HEART SOUNDS: Regular. LUNGS: Diminished breath sounds at bases. ABDOMEN: Soft and nontender. Bowel sounds are normal. EXTREMITIES: Without any cyanosis or clubbing. She does have trace edema on her lower extremities. She has large bruise on lateral right knee. LABORATORY DATA: Today's labs show WBC count 11.1, hemoglobin 9.1, hematocrit 29.7, platelets 164. Sodium 143, potassium 4.4, BUN 83, creatinine 1.71, glucose 138, calcium 8.2. PROBLEMS: 1. Acute kidney injury superimposed on chronic kidney disease. Kidney function is gradually improving and almost at baseline. Electrolytes are stable. She has good urine output. 2. Congestive heart failure. Volume status is slightly decompensated. She is now on chlorthalidone at 25 mg daily. At home, she was taking chlorthalidone 50 mg daily and I feel that she should resume her preadmission dose. 3. Anemia. Her anemia is improving and this can be followed up as an outpatient. 4. Hypertension. Blood pressure seems to be high today. I think this is probably related to mild volume overload. She is on hydralazine 25 mg only at bedtime. She is also on chlorthalidone 25 mg daily. I feel that her chlorthalidone should be increased to 50 mg daily and she should remain on carvedilol 6.25 mg twice a day and hydralazine 25 mg twice a day. DISPOSITION: From a renal standpoint, patient is stable and can be discharged back to her assisted living facility.
[2021-03-04] MEDS ORDERED: CHLORTHALIDONE 25 MG TAB PO ONE (12:00)
--- NOTE | 2021-03-04 15:38 | IPN ---
NEPHROLOGY PROGRESS NOTE DATE: 02/28/2021 SUBJECTIVE: Ms. Derrick Rodriguez is seen and examined this morning at the bedside. No acute overnight events are noted. She is tolerating a diet. Her oxygen requirements have come down. I am holding her Lasix drip. She denies any shortness of breath at rest. PHYSICAL EXAMINATION: VITAL SIGNS: Temperature 997.6, pulse 72respiratory rate 18, blood pressure 148/65, saturating 95% on 3 liters nasal cannula. INTAKE AND OUTPUT: Intake yesterday was 670. Urine output yesterday was 1 liter. Urine output today is already more than 3 liters. Weight in the bed scale today is 99.9 kg. GENERAL: Patient is seen lying in bed, awake, alert, oriented and in no apparent distress. HEENT: Extraocular muscles are intact. Tongue is moist. NECK: Jugular veins are not elevated. HEART SOUNDS: S1, S2. There is 1+ pitting edema in the lower extremities, more pronounced on the right. LUNGS: Symmetric breath sounds, diminished secondary to obesity and body habitus, but no crackle or rale. She is comfortable on nasal cannula. ABDOMEN: Soft, obese and nontender. GENITOURINARY: Shows indwelling Michelle catheter. NEUROLOGIC: Oriented tines three, interactive, conversational and cooperative with physical exam. SKIN: Frail and there is scattered bruising. LABORATORY STUDIES: Sodium 142, potassium 4.5, bicarbonate 27, BUN 95, creatinine 2.7. Brain natriuretic peptide (BNP) 2900. Hemoglobin 9.3, platelets 90, white count 12.1. INPATIENT MEDICATIONS: I have discontinued the Lasix drip. I note heparin subcutaneous was stopped by the primary team and patient is now on Eliquis 2.5 mg twice a day. Her insulin was adjusted by the primary team and her prednisone dose was reduced. The remainder of the medications are all unchanged as compared to yesterday. PROBLEMS: 1. Acute kidney injury superimposed on chronic kidney disease stage IIIB, borderline stage IV. Patient has diuresed very well and responded to Lasix infusion. Her BNP has downtrended. I have discontinued the Lasix drip. Her diuretics will be adjusted as needed going forward. 2. Chronic diastolic heart failure. Patient's volume status has improved over the course of this admission. She was transfused several units of packed red blood cells (five total) after 1.5 liter estimated blood loss intraoperatively. She is status post recent Lasix drip with good diuretic response and her oxygen requirements are now improving and I feel nasal cannula could be further weaned. 3. Right femoral neck fracture secondary to mechanical fall. Postoperative day #2 from hip arthroplasty. On Eliquis, managed by primary team. I note platelet counts have mildly decreased. Patient reports pain is adequately controlled. 4. Acute hypoxemic respiratory failure. Patient was being treated by the primary team for chronic obstructive pulmonary disease (COPD) exacerbation. She was diuresed the past two days with intermittent Lasix drip and it is now discontinued. Oxygen requirements have come down and diuretics will be adjusted on an as needed basis. 5. Hypertension. I discontinued her amlodipine. She is on chlorthalidone, Isordil and hydralazine. DICTATION ENDS HERE./verified/ml
--- NOTE | 2021-03-04 19:42 | DS.PDOC ---
Discharge Summary General Date of Admission Feb 23, 2021 at 16:35 Date of Discharge 03/04/21 Discharge Summary PROCEDURES PERFORMED DURING STAY: Right hip arthroplasty ADMITTING DIAGNOSES: Right femoral neck fracture secondary to mechanical fall Acute hypoxemic respiratory failure Acute on chronic kidney failure/secondary hyperparathyroidism Acute diastolic CHF Hypertension Anemia Type 2 diabetes Hyperlipidemia Peripheral vascular disease Morbid obesity BMI 42/[place] Paroxysmal atrial fibrillation Iron deficiency anemia/right distal leg bleed Vitamin D deficiency History of adenomatous colonic polyps Deconditioning History of right medial malleolus MSSA osteomyelitis DISCHARGE DIAGNOSES: Right femoral neck fracture secondary to mechanical fall Acute hypoxemic respiratory failure Acute on chronic kidney failure/secondary hyperparathyroidism Acute diastolic CHF Hypertension Anemia Type 2 diabetes Hyperlipidemia Peripheral vascular disease Morbid obesity BMI 42/[place] Paroxysmal atrial fibrillation Iron deficiency anemia/right distal leg bleed Vitamin D deficiency History of adenomatous colonic polyps Deconditioning History of right medial malleolus MSSA osteomyelitis COMPLICATIONS/CHIEF COMPLAINT: Fracture Of Femoral Neck, Right. HISTORY OF PRESENT ILLNESS: 75-year-old female resident at [facility] brought in by EMS due to a mechanical fall, tripping over her walker with complaints of right hip pain, 10 out of 10 on a pain scale, described as sharp, shooting, and stabbing pain, deformed with shortened / rotated right lower extremity and abrasions to the right lower extremity and left thumb. Patient said that she fell 2 days ago while walking with her walker when her walker hit something and she fell over her walker without loss of consciousness. She denied any prodromal symptoms prior to the episode with a similar event today. Patient could not reach the call button and was yelling out for about 10 minutes before staff member came to her aid she was left on the ground until EMS came. She remembers falling on her right side and having severe pain unable to get up. No medications were given at [facility] for her pain. She was brought into the ER for further evaluation In the ER patient was found to have a right femoral neck fracture, and presented with hypertensive urgency systolic pressure of 229/93 millimeters of m ercury.Patient denies enies fever chills visual changes weight changes appetite changes. Complains of dry eyes but denies diplopia changes in vision. Denies odynophagia dysphagia nausea vomiting diarrhea hematemesis bright red blood per rectum melena black tarry stools coffee-ground emesis chest pain pressure tightness shortness of breath cough PND orthopnea nocturia palpitations lightheadedness dizziness. She admits to using oxygen ex-smoker has history of COPD. Denies dysuria urgency frequency. Chronic lower extremity edema. HOSPITAL COURSE: During the hospital stay the following issues addressed Right femoral neck fracture secondary to mechanical fall Orthopedic team proceeded with right hip arthroplasty Patient received treatment with pain medication Acute hypoxemic respiratory failure Most likely secondary to acute diastolic CHF and possible COPD exacerbation VQ scan shows low probability for PE BNP was significantly elevated to 7735, patient received Lasix drip. Patient developed good urine output. Patient received treatment with inhalers, tapered down prednisone p.o. Resolved. Patient currently on the 1 L of oxygen and its her baseline Acute on chronic kidney failure/secondary hyperparathyroidism Improved Nephrology team follows patient Acute diastolic CHF Patient developed good urine output I's and O's Patient received treatment with diuresis Hypertension Continue home meds with parameters Nephrology team started chlorthalidone I added amlodipine 10 mg in order to better control blood pressure. Blood pressure improved today Anemia Secondary to chronic kidney disease and iron deficiency Continue iron supplementation Hemoglobin stable, no indication for transfusion Type 2 diabetes Insulin sliding scale Diabetes diet I increased the dose of detemir twice daily in order to better control glucose level. Glucose level under control Hyperlipidemia Continue statin Peripheral vascular disease with vascular stenting on chronic Plavix and aspirin -Plavix on hold, continue aspirin. Continue Eliquis 2.5 twice daily due to DARRYL Morbid obesity BMI 42/[place] -Complicating care Paroxysmal atrial fibrillation Heart rate under control Eliquis 2.5 twice daily History of right medial malleolus MSSA osteomyelitis Iron deficiency anemia/right distal leg bleed Hemoglobin stable Right distal leg bleeding was stopped after thrombin kit application Vitamin D deficiency History of adenomatous colonic polyps Deconditioning PT/OT ARU screen placed DISCHARGE MEDICATIONS: Please see below. ALLERGIES: Please see below. PHYSICAL EXAMINATION ON DISCHARGE: VITAL SIGNS: Please see below. GENERAL APPEARANCE: NAD HEENT: no scleral icterus, no JVD, EOMI CARDIOVASCULAR: S1S2 LUNGS: Diminished lung sounds bilaterally ABDOMEN: soft & not tender w palpation MUSCULOSKELETAL: no cyanosis, no swelling of lower extremities bilaterally NEUROLOGICAL: cranial nerve function from 2-12 intact, follows commands, speech not dysarthric LABORATORY DATA: Please see below. PROGNOSIS: Fair ACTIVITY: [As tolerated]. DIET: Cardiac DISPOSITION: [facility]. ITEMS TO FOLLOWUP ON ON OUTPATIENT: Follow-up with orthopedic team and PCP DISCHARGE CONDITION: [Stable]. TIME SPENT ON DISCHARGE: 50 minutes. Vital Signs/I&Os Vital Signs Date Time Temp Pulse Resp B/P (MAP) Pulse Ox O2 Delivery O2 Flow Rate FiO2 03/04/21 11:52 160/72 03/04/21 11:52 101 03/04/21 09:00 1.0 03/04/21 05:56 97.2 20 93 Nasal Cannula I&O- Last 24 Hours up to 6 AM 03/04/21 06:00 Intake Total 600 ml Output Total 1325 ml Balance -725 ml Laboratory Data Labs 24H Laboratory Tests 2 03/03/21 19:56: Bedside Glucose (Misc Panel) 196H 03/04/21 05:55: Bedside Glucose (Misc Panel) 120H 03/04/21 08:50: Immature Granulocyte % (Auto) 0.7, Neutrophils (%) (Auto) 76.4H, Lymphocytes (%) (Auto) 11.2L, Monocytes (%) (Auto) 9.3H, Eosinophils (%) (Auto) 2.3, Basophils (%) (Auto) 0.1, Neutrophils # (Auto) 8.5, Lymphocytes # (Auto) 1.3L, Monocytes # (Auto) 1.0H, Eosinophils # (Auto) 0.3, Basophils # (Auto) 0.0, Nucleated Red Blood Cells % (auto) 0.0, Anion Gap 6L, Glomerular Filtration Rate 31.2L, Calci um Level 8.2L, Magnesium Level 2.7H, Total Bilirubin 0.4, Aspartate Amino Transf (AST/SGOT) 13, Alanine Aminotransferase (ALT/SGPT) 14, Alkaline Phosphatase 91, Total Protein 4.8L, Albumin 2.0L, Albumin/Globulin Ratio 0.7L 03/04/21 09:44: Coronavirus (COVID-19)(PCR) NEGATIVE 03/04/21 11:45: Bedside Glucose (Misc Panel) 148H CBC/BMP Laboratory Tests 03/04/21 08:50 FSBS Laboratory Tests Test 03/03/21 19:56 03/04/21 05:55 03/04/21 11:45 Range/Units Bedside Glucose (Misc Panel) 196 120 148 83-110 MG/DL Discharge Medications Scheduled Amlodipine Besylate (Amlodipine Besylate) 10 Mg Tablet, 10 MG PO DAILY Apixaban (Eliquis) 2.5 Mg Tablet, 2.5 MG PO BID Aspirin (Aspirin EC) 81 Mg Tab, 81 MG PO DAILY, (Reported) Atorvastatin Calcium (Atorvastatin Calcium) 40 Mg Tablet, 40 MG PO QHS, (Reported) Carvedilol (Carvedilol) 6.25 Mg Tab, 6.25 MG PO BID, (Reported) Chlorthalidone (Chlorthalidone) 50 Mg Tablet, 1 TAB PO DAILY Docusate Sodium (Colace) 100 Mg Capsule, 100 MG PO QHS, (Reported) Ferrous Sulfate (Ferrous Sulfate) 325 Mg Tab, 325 MG PO DAILY, (Reported) Fluoxetine Hcl (Fluoxetine HCl) 10 Mg Capsule, 30 MG PO DAILY, (Reported) Insulin Detemir (Levemir) 100 Unit/1 Ml Vial, 20 UNITS SC BID Isosorbide Dinitrate (Isosorbide Dinitrate) 20 Mg Tablet, 20 MG PO BID, (Reported) Ondansetron HCl (Ondansetron HCl) 4 Mg Tablet, 4 MG PO DAILY, (Reported) Pantoprazole Sodium (Pantoprazole Sodium) 40 Mg Tablet.dr, 40 MG PO DAILY, (Repo rted) Prednisone (Prednisone) 10 Mg Tablet, 10 MG PO DAILY Psyllium Husk (with Sugar) (Metamucil Powder) 575 Gm Powder, 1 PACKET PO DAILY, (Reported) MIX IN WATER Scheduled PRN Acetaminophen (Acetaminophen) 650 Mg Supp.rect, 650 MG MI Q4H PRN for PAIN / FEVER, (Reported) Bisacodyl (Bisacodyl) 10 Mg Supp.rect, 10 MG MI DAILY PRN for CONSTIPATION, (Reported) Glucagon,Human Recombinant (Glucagon Emergency Kit) 1 Mg Vial, 1 MG IM ASDIRECTED PRN for LOW BLOOD SUGAR, (Reported) Hydrocodone/Acetaminophen (Hydrocodone-Acetamin 5-325 mg) 1 Each Tablet, 1 TAB PO Q4HP PRN for MODERATE PAIN (PS 5-7) Magnesium Hydroxide (Milk of Magnesia) 400 Mg/5 Ml Oral.susp, 30 ML PO DAILY PRN for CONSTIPATION, (Reported) Polyvinyl Alcohol (Artificial Tears) 15 Ml Drops, 1 DROP OU Q2H PRN for DRY EYES, (Reported) Sodium Phosphate,[place]-Dibasic (Enema) 133 Ml Enema, 1 GALO MI DAILY PRN for CONSTIPATION, (Reported) Allergies Coded Allergies: Latex, Natural Rubber (Verified Allergy, Unknown, Rash, 11/22/20) milk (Verified Allergy, Unknown, 11/22/20) REYES DE LEON DO Mar 04, 2021 19:42
== END 2021-03-04 12:20 | DRG 521 ==
LOC: M ED 15:22 → M ED INP 16:35 → ENRESERV 02-24 06:47 → M MS5PR 02-24 08:45 → M PCU 02-24 14:15 → M MS5PR 03-03 21:08
PROVIDERS: ADMIT General Practice; ATTEND Internal Medicine
PROC: 30233N1 Transfusion of Nonautologous Red Blood Cells into Peripheral Vein, Percutaneous Approach (ICD-10-PCS; 2021-02-25)
PROC: 0SR90J9 Replacement of Right Hip Joint with Synthetic Substitute, Cemented, Open Approach (ICD-10-PCS; principal; 2021-02-27)
DX: S72.001A Fracture of unspecified part of neck of right femur, initial encounter for closed fracture (principal); J96.01 Acute respiratory failure with hypoxia; I50.33 Acute on chronic diastolic (congestive) heart failure; Z68.41 Body mass index [BMI] 40.0-44.9, adult; N25.81 Secondary hyperparathyroidism of renal origin; I13.0 Hypertensive heart and chronic kidney disease with heart failure and stage 1 through stage 4 chronic kidney disease, or unspecified chronic kidney disease; N18.4 Chronic kidney disease, stage 4 (severe); J44.1 Chronic obstructive pulmonary disease with (acute) exacerbation; E87.0 Hyperosmolality and hypernatremia; E66.01 Morbid (severe) obesity due to excess calories; E11.51 Type 2 diabetes mellitus with diabetic peripheral angiopathy without gangrene; E55.9 Vitamin D deficiency, unspecified; D50.9 Iron deficiency anemia, unspecified; I48.0 Paroxysmal atrial fibrillation; E78.5 Hyperlipidemia, unspecified; D63.1 Anemia in chronic kidney disease; Z79.82 Long term (current) use of aspirin; Z79.899 Other long term (current) drug therapy; Z79.4 Long term (current) use of insulin; Z91.040 Latex allergy status; Z91.011 Allergy to milk products; W01.0XXA Fall on same level from slipping, tripping and stumbling without subsequent striking against object, initial encounter; Y92.009 Unspecified place in unspecified non-institutional (private) residence as the place of occurrence of the external cause; Z89.422 Acquired absence of other left toe(s); Z87.891 Personal history of nicotine dependence; I16.0 Hypertensive urgency; Z66 Do not resuscitate; F31.9 Bipolar disorder, unspecified

== ENCOUNTER → 2021-02-26 | Outpatient (REF) | payer MEDICARE, MEDICAID, OTHER ==
[~2021-02-26] MED LIST changes: +HYDR-3910 PO
== END ==
PROVIDERS: ATTEND Internal Medicine
DX: N18.9 Chronic kidney disease, unspecified (principal); Z53.9 Procedure and treatment not carried out, unspecified reason

== ENCOUNTER → 2021-03-06 | Outpatient (REF) | payer MEDICARE, MEDICAID, OTHER ==
[~2021-03-06] MED LIST changes: +ACET-907 PO; +ACET650T3 PO; +CHLO50TA PO; +CLOP75TA2 PO; +ELIQ2.5T PO; +FLUO-96 PO; -FLUO10CA16 PO; +FLUO10CA18 PO; -FLUO20CA20 PO; +HYDR-3715 PO; +HYDR-4571 PO; +ISOS20TA4 PO; -ISOS20TAB PO; +ONDA-84 PO; -ONDA8TAB10 PO; +POTA-151 PO; -POTA20TA6 PO; +PRED10TA2 PO; +[UNRECOGNIZED DRUG - CODE] PO
== END ==
PROVIDERS: ATTEND Physician Assistant
DX: Z53.9 Procedure and treatment not carried out, unspecified reason (principal)

== ENCOUNTER → 2021-03-12 | Outpatient (REF) | payer MEDICARE, MEDICAID, OTHER ==
[~2021-03-12] MED LIST changes: -ACET-907 PO; -ACET650T3 PO; -CLOP75TA2 PO; -FLUO-96 PO; +FLUO10CA16 PO; -FLUO10CA18 PO; +FLUO20CA20 PO; -HYDR-4571 PO; -ISOS20TA4 PO; +ISOS20TAB PO; -ONDA-84 PO; +ONDA8TAB10 PO; -POTA-151 PO; +POTA20TA6 PO; -[UNRECOGNIZED DRUG - CODE] PO
[2021-03-12 11:37] LABS: HEMATOCRIT 26.9 % (36.0-47.0); MEAN CORPUSCULAR HEMOGLOBIN 30.1 pg (27.0-33.0); MEAN CORPUSCULAR HGB CONC 29.7 g/dl (32.0-36.5); MEAN CORPUSCULAR VOLUME 101.1 fl (80.0-96.0); PLATELET COUNT, AUTOMATED 193 10^3/uL (150-450); RED BLOOD COUNT 2.66 10^6/uL (4.00-5.40); WHITE BLOOD COUNT 7.9 10^3/uL (4.0-10.0)
[2021-03-12 12:30] LABS: CALCIUM LEVEL 8.4 MG/DL (8.8-10.2); CREATININE FOR GFR 1.88 MG/DL (0.55-1.30); GLOMERULAR FILTRATION RATE 27.9 (>39); POTASSIUM SERUM 4.8 MEQ/L (3.5-5.1)
== END ==
PROVIDERS: ATTEND Physician Assistant
DX: I50.9 Heart failure, unspecified (principal)

== ENCOUNTER → 2021-03-13 | Outpatient (CLI) | payer MEDICARE, MEDICAID, OTHER ==
--- NOTE | 2021-03-13 09:30 | REP ---
INDICATION: SURGICAL AFTERCARE Status post arthroplasty. COMPARISON: None. TECHNIQUE: Limited pelvis and neutral/frog-lateral views of the right hip FINDINGS: Patient is status post right hip replacement with normal appearance and positioning to the orthopedic hardware. Overlying postsurgical changes are noted. No obvious acute fracture identified. Extensive vascular calcifications and evidence for iliac stents noted. IMPRESSION: Right hip replacement. <Electronically signed by Champ Levi > 03/13/21 [id number]
== END ==
LOC: M SOG 08:13
PROVIDERS: ATTEND Student in an Organized Health Care Education/Training Program
DX: Z48.89 Encounter for other specified surgical aftercare (principal); Z96.641 Presence of right artificial hip joint; Z95.828 Presence of other vascular implants and grafts; I70.201 Unspecified atherosclerosis of native arteries of extremities, right leg

== ENCOUNTER → 2021-03-17 | Outpatient (REF) | payer MEDICARE, MEDICAID, OTHER ==
[2021-03-17 10:52] LABS: HEMOGLOBIN 8.3 g/dl (12.0-15.5); MEAN CORPUSCULAR HEMOGLOBIN 29.9 pg (27.0-33.0); MEAN CORPUSCULAR HGB CONC 29.6 g/dl (32.0-36.5); MEAN CORPUSCULAR VOLUME 100.7 fl (80.0-96.0); PLATELET COUNT, AUTOMATED 119 10^3/uL (150-450); RED BLOOD COUNT 2.78 10^6/uL (4.00-5.40); WHITE BLOOD COUNT 7.1 10^3/uL (4.0-10.0)
== END ==
PROVIDERS: ATTEND Internal Medicine
DX: I50.9 Heart failure, unspecified (principal)

== ENCOUNTER → 2021-03-27 | Outpatient (REF) | payer MEDICARE, MEDICAID, OTHER ==
[2021-03-27 17:51] LABS: HEMATOCRIT 25.6 % (36.0-47.0); HEMOGLOBIN 7.6 g/dl (12.0-15.5); MEAN CORPUSCULAR HEMOGLOBIN 30.9 pg (27.0-33.0); MEAN CORPUSCULAR HGB CONC 29.7 g/dl (32.0-36.5); MEAN CORPUSCULAR VOLUME 104.1 fl (80.0-96.0); PLATELET COUNT, AUTOMATED 107 10^3/uL (150-450); RED BLOOD COUNT 2.46 10^6/uL (4.00-5.40); WHITE BLOOD COUNT 5.6 10^3/uL (4.0-10.0)
[2021-03-27 18:16] LABS: CALCIUM LEVEL 7.9 MG/DL (8.8-10.2); CREATININE FOR GFR 1.8 MG/DL (0.55-1.30); GLOMERULAR FILTRATION RATE 29.4 (>39); POTASSIUM SERUM 4.4 MEQ/L (3.5-5.1)
== END ==
PROVIDERS: ATTEND Internal Medicine
DX: D64.9 Anemia, unspecified (principal); N18.9 Chronic kidney disease, unspecified

== ENCOUNTER → 2021-03-28 | Outpatient (REF) | payer MEDICARE, MEDICAID, OTHER ==
[~2021-03-28] MED LIST changes: +ACET-907 PO; +ACET650T3 PO; +CLOP75TA2 PO; +HYDR-4571 PO; +[UNRECOGNIZED DRUG - CODE] PO
[2021-03-28 14:28] LABS: FERRITIN 205 NG/ML (8-252); IRON (FE) 43 UG/DL (50-170)
== END ==
PROVIDERS: ATTEND Internal Medicine
DX: D64.9 Anemia, unspecified (principal)

== ENCOUNTER → 2021-03-31 | Outpatient (REF) | payer MEDICARE, MEDICAID ==
[~2021-03-31] MED LIST changes: -ACET-907 PO; -ACET650T3 PO; -CLOP75TA2 PO; -HYDR-4571 PO; -[UNRECOGNIZED DRUG - CODE] PO
== END ==
PROVIDERS: ATTEND Physician Assistant
DX: D50.9 Iron deficiency anemia, unspecified (principal)

== ENCOUNTER → 2021-03-31 | Outpatient (REF) | payer MEDICARE, MEDICAID, OTHER ==
[2021-03-31 11:10] LABS: HEMATOCRIT 27.1 % (36.0-47.0); HEMOGLOBIN 8.1 g/dl (12.0-15.5); MEAN CORPUSCULAR HEMOGLOBIN 31.4 pg (27.0-33.0); MEAN CORPUSCULAR HGB CONC 29.9 g/dl (32.0-36.5); PLATELET COUNT, AUTOMATED 154 10^3/uL (150-450); RED BLOOD COUNT 2.58 10^6/uL (4.00-5.40); WHITE BLOOD COUNT 5.8 10^3/uL (4.0-10.0)
== END ==
PROVIDERS: ATTEND Physician Assistant
DX: D64.9 Anemia, unspecified (principal)

== ENCOUNTER 2021-04-01 08:22 | Outpatient (CLI) | payer MEDICARE, MEDICAID ==
[2021-04-01] VITALS (7 sets, daily range): BP systolic 143–172; BP diastolic 66–78
[2021-04-01] MEDS: diphenhydrAMINE 25MG CAP PO SCH ×2 (08:36→08:40)
[2021-04-01] MEDS: ACETAMINOPHEN TAB 650MG DOSE (2X325MG) PO SCH ×2 (08:36→08:40)
[2021-04-01] MEDS ORDERED: FUROSEMIDE 20 MG TAB PO ONE (09:00)
== END 2021-04-01 13:53 | disposition home or self-care (01) ==
LOC: M INFU 08:22
PROVIDERS: ATTEND Physician Assistant
DX: D50.9 Iron deficiency anemia, unspecified (principal); Z91.040 Latex allergy status
CPT/HCPCS: 36430; P9016

== ENCOUNTER → 2021-04-02 | Outpatient (REF) | payer MEDICARE, MEDICAID ==
[~2021-04-02] MED LIST changes: +ACET-907 PO; +ACET650T3 PO; +CLOP75TA2 PO; +HYDR-4571 PO; +[UNRECOGNIZED DRUG - CODE] PO
[2021-04-02 16:56] LABS: HEMATOCRIT 32.3 % (36.0-47.0); HEMOGLOBIN 9.7 g/dl (12.0-15.5); MEAN CORPUSCULAR HEMOGLOBIN 30.4 pg (27.0-33.0); MEAN CORPUSCULAR VOLUME 101.3 fl (80.0-96.0); PLATELET COUNT, AUTOMATED 157 10^3/uL (150-450); RED BLOOD COUNT 3.19 10^6/uL (4.00-5.40); WHITE BLOOD COUNT 5.8 10^3/uL (4.0-10.0)
== END ==
PROVIDERS: ATTEND Internal Medicine
DX: N18.9 Chronic kidney disease, unspecified (principal)

== ENCOUNTER 2021-04-07 13:22 | Observation (INO) | payer MEDICARE, OTHER, MEDICAID ==
[~2021-04-07] VITALS: Ht 157.5 cm; Wt 101.2 kg
[~2021-04-07 13:22] MED LIST changes: -ACET-907 PO; -ACET650T3 PO; -CLOP75TA2 PO; +FLUO-96 PO; -FLUO10CA16 PO; +FLUO10CA18 PO; -FLUO20CA20 PO; -HYDR-4571 PO; +ISOS20TA4 PO; -ISOS20TAB PO; +ONDA-84 PO; -ONDA8TAB10 PO; +POTA-151 PO; -POTA20TA6 PO; -[UNRECOGNIZED DRUG - CODE] PO
[2021-04-07] MEDS ORDERED: NS 1,000 ML IV SCH (13:50)
[2021-04-07 14:41] LABS: BASO % 0.1 % (0.0-1.0); HEMATOCRIT 35.2 % (36.0-47.0); HEMOGLOBIN 10.8 g/dl (12.0-15.5); LYMPH # 0.7 10^3/uL (1.5-5.0); LYMPH % 4.1 % (24.0-44.0); MEAN CORPUSCULAR HEMOGLOBIN 30.9 pg (27.0-33.0); MEAN CORPUSCULAR HGB CONC 30.7 g/dl (32.0-36.5); MEAN CORPUSCULAR VOLUME 100.9 fl (80.0-96.0); MONO # 1.1 10^3/uL (0.0-0.8); MONO % 6.1 % (2.0-8.0); NEUTROPHILS # 15.7 10^3/uL (1.5-8.5); PLATELET COUNT, AUTOMATED 168 10^3/uL (150-450); RED BLOOD COUNT 3.49 10^6/uL (4.00-5.40); WHITE BLOOD COUNT 17.6 10^3/uL (4.0-10.0)
[2021-04-07 15:15] LABS: ALBUMIN 2.4 GM/DL (3.2-5.2); BILIRUBIN,DIRECT 0.2 MG/DL (0.0-0.2); BILIRUBIN,TOTAL 0.4 MG/DL (0.2-1.0); TOTAL PROTEIN 5.8 GM/DL (6.4-8.2)
[2021-04-07 17:32] LABS: RSV AMPLIFICATION NEGATIVE (NEGATIVE)
[2021-04-07] MEDS ORDERED: cefTRIAXone SOD 1 GM in D5W MINI-BAG PLUS 50 ML IV ONE (17:45)
[2021-04-07] MEDS ORDERED: GLUCOSE 4GM CHEW TABLET PO PRN (18:00)
[2021-04-07] MEDS ORDERED: DEXTROSE 50% 50 ML SYRINGE IV PRN (18:00)
[2021-04-07] MEDS ORDERED: HEPARIN SOD (PORCINE) 5000UNITS/ML 1ML VIAL/SYRINGE SC SCH (18:00)
[2021-04-07] MEDS ORDERED: ACETAMINOPHEN TAB 650MG DOSE (2X325MG) PO PRN (18:00)
[2021-04-07] MEDS ORDERED: GLUCAGON INJ 1MG VIAL SC PRN (18:00)
[2021-04-07] MEDS ORDERED: MOM 30ML SUSPENSION UDC PO PRN (18:00)
[2021-04-07] MEDS ORDERED: ONDANSETRON 4MG/2ML VIAL IV PRN (18:30)
[2021-04-07] MEDS: NS 1,000 ML IV SCH (19:35)
[2021-04-07] MEDS ORDERED: VANCOMYCIN HCL 1,000 MG, VIAL MATE ADAPTER 1 EACH in NS 250 ML IV ONE (20:35)
[2021-04-07] MEDS ORDERED: [UNRECOGNIZED DRUG - CODE] PO (21:07)
[2021-04-07] MEDS ORDERED: NEPR1LIQ2 PO (21:07)
[2021-04-07] MEDS ORDERED: CALC1CAP31 PO (21:07)
[2021-04-07] MEDS ORDERED: CLOP75TA2 PO (21:07)
[2021-04-07] MEDS ORDERED: CHLO50TA PO (21:07)
[2021-04-07] MEDS ORDERED: HYDR-4571 PO ×2 (21:07)
[2021-04-07] MEDS ORDERED: AMLO1TAB25 PO (21:07)
[2021-04-07] MEDS ORDERED: INSUDET SC (21:07)
[2021-04-07] MEDS ORDERED: ACET-907 PO (21:07)
[2021-04-07] MEDS ORDERED: ACET650T3 PO (21:07)
[2021-04-07] MEDS ORDERED: HOME MED LIST COMPLETE! XX SCH (21:10)
[2021-04-07] MEDS: CARVedilol 6.25 MG TAB PO SCH (22:19)
[2021-04-07] MEDS: HumaLOG INSULIN (NovoLOG) PER UNIT SC SCH (22:45)
[2021-04-08] MEDS: VANCOMYCIN HCL 1,000 MG, VIAL MATE ADAPTER 1 EACH in NS 250 ML IV SCH ×2 (01:27→23:40)
[2021-04-08 02:46] VITALS: BP 145/68
[2021-04-08] MEDS: NS 1,000 ML IV SCH ×2 (05:35→11:50)
[2021-04-08 06:45] VITALS: BP 142/71
[2021-04-08 08:03] LABS: HEMATOCRIT 32.2 % (36.0-47.0); HEMOGLOBIN 9.7 g/dl (12.0-15.5); MEAN CORPUSCULAR HEMOGLOBIN 30.5 pg (27.0-33.0); MEAN CORPUSCULAR HGB CONC 30.1 g/dl (32.0-36.5); MEAN CORPUSCULAR VOLUME 101.3 fl (80.0-96.0); PLATELET COUNT, AUTOMATED 145 10^3/uL (150-450); RED BLOOD COUNT 3.18 10^6/uL (4.00-5.40); WHITE BLOOD COUNT 10.9 10^3/uL (4.0-10.0)
[2021-04-08 08:14] LABS: INR 1.39; PROTHROMBIN TIME 17.5 SECONDS (12.7-14.5)
[2021-04-08 08:15] LABS: PARTIAL THROMBOPLASTIN TIME 47.5 SECONDS (25.9-37.0)
[2021-04-08 08:17] LABS: CALCIUM LEVEL 8.3 MG/DL (8.8-10.2); CREATININE FOR GFR 1.64 MG/DL (0.55-1.30); GLOMERULAR FILTRATION RATE 32.7 (>39); MAGNESIUM LEVEL 2.8 MG/DL (1.8-2.4); POTASSIUM SERUM 4.6 MEQ/L (3.5-5.1)
[2021-04-08] MEDS: cefTRIAXone SOD 1 GM in D5W MINI-BAG PLUS 50 ML IV SCH ×2 (08:20→19:49)
[2021-04-08] MEDS: HumaLOG INSULIN (NovoLOG) PER UNIT SC SCH ×4 (08:21→20:31)
[2021-04-08] MEDS: CARVedilol 6.25 MG TAB PO SCH ×2 (08:24→20:28)
[2021-04-08] MEDS ORDERED: APIXABAN 2.5 MG TAB (ELIQUIS) PO SCH (09:00)
[2021-04-08 14:00] VITALS: BP 134/72
[2021-04-08] MEDS ORDERED: NORCO, ANEXSIA 5/325MG TABLET (HYDROcodone/ACETAMINOPHEN) PO PRN (15:55)
[2021-04-08] MEDS: ACETAMINOPHEN 650MG ER TAB (TYLENOL ARTHRITIS) PO SCH ×2 (17:28→20:27)
[2021-04-08] MEDS: ISOSORBIDE DIN. (ISORDIL) 20 MG TAB PO SCH (20:28)
[2021-04-08] MEDS ORDERED: ATORVASTATIN 20 MG TAB PO SCH (21:00)
[2021-04-08 22:00] VITALS: BP 146/65
[2021-04-09 06:00] VITALS: BP 146/65
[2021-04-09 07:42] LABS: MAGNESIUM LEVEL 2.7 MG/DL (1.8-2.4)
[2021-04-09] MEDS: cefTRIAXone SOD 1 GM in D5W MINI-BAG PLUS 50 ML IV SCH (08:11)
[2021-04-09] MEDS: HumaLOG INSULIN (NovoLOG) PER UNIT SC SCH (08:12)
[2021-04-09] MEDS: ISOSORBIDE DIN. (ISORDIL) 20 MG TAB PO SCH (08:14)
[2021-04-09 08:15] VITALS: BP 166/76
[2021-04-09] MEDS: ACETAMINOPHEN 650MG ER TAB (TYLENOL ARTHRITIS) PO SCH (08:15)
[2021-04-09] MEDS: CARVedilol 6.25 MG TAB PO SCH (08:15)
[2021-04-09] MEDS ORDERED: CALCITRIOL 0.25 MCG CAP (S0169) PO SCH (09:00)
[2021-04-09] MEDS ORDERED: CLOPIDOGREL 75 MG TAB PO SCH (09:00)
[2021-04-09] MEDS ORDERED: FLUoxetine 10 MG CAP PO SCH (09:00)
[2021-04-09] MEDS ORDERED: CEFD300CAP PO (10:29)
[2021-04-09 10:49] LABS: CALCIUM LEVEL 8.2 MG/DL (8.8-10.2); CREATININE FOR GFR 1.59 MG/DL (0.55-1.30); GLOMERULAR FILTRATION RATE 33.9 (>39); POTASSIUM SERUM 4.3 MEQ/L (3.5-5.1)
[2021-04-09] MEDS ORDERED: FUROSEMIDE 40MG/4ML VIAL (J1940) IV ONE (11:00)
== END 2021-04-09 11:50 ==
LOC: M ED 13:22 → M ED INP 18:00 → ENRESERV 04-08 01:22 → M MSPAV 04-08 02:30
PROVIDERS: ADMIT Internal Medicine; ATTEND Internal Medicine Nephrology
DX: N39.0 Urinary tract infection, site not specified (principal); B96.1 Klebsiella pneumoniae [K. pneumoniae] as the cause of diseases classified elsewhere; G93.41 Metabolic encephalopathy; E11.9 Type 2 diabetes mellitus without complications; I12.9 Hypertensive chronic kidney disease with stage 1 through stage 4 chronic kidney disease, or unspecified chronic kidney disease; N18.4 Chronic kidney disease, stage 4 (severe); I50.9 Heart failure, unspecified; F03.90 Unspecified dementia, unspecified severity, without behavioral disturbance, psychotic disturbance, mood disturbance, and anxiety; I73.9 Peripheral vascular disease, unspecified; G47.33 Obstructive sleep apnea (adult) (pediatric); E66.01 Morbid (severe) obesity due to excess calories; I48.0 Paroxysmal atrial fibrillation; F31.9 Bipolar disorder, unspecified; F32.9 Major depressive disorder, single episode, unspecified; D63.1 Anemia in chronic kidney disease; J44.9 Chronic obstructive pulmonary disease, unspecified; Z79.4 Long term (current) use of insulin; Z79.82 Long term (current) use of aspirin; Z79.899 Other long term (current) drug therapy; Z91.040 Latex allergy status; Z91.011 Allergy to milk products
CPT/HCPCS: 36415; 71045; 74176; 80047; 80048; 80076; 81001; 83605; 83690; 83735; 84484; 85025; 85027; 85610; 85652; 85730; 87040; 87088; 87186; 87631; 87641; 93005; 96361; 96365; 96366; 96367; 96375; 97161; 97530; 99285; G0378; J0696; J1940; J3370

== ENCOUNTER → 2021-04-07 | Outpatient (REF) | payer MEDICARE, MEDICAID | PROVIDERS: ATTEND Physician Assistant | DX: R53.83 Other fatigue (principal); Z53.9 Procedure and treatment not carried out, unspecified reason ==

== ENCOUNTER → 2021-04-10 | Outpatient (CLI) | payer MEDICARE, MEDICAID ==
[~2021-04-10] MED LIST changes: +ACET-907 PO; +ACET650T3 PO; +CLOP75TA2 PO; +HYDR-4571 PO; +[UNRECOGNIZED DRUG - CODE] PO
== END ==
PROVIDERS: ATTEND Internal Medicine
DX: R06.02 Shortness of breath (principal); I51.7 Cardiomegaly; J84.9 Interstitial pulmonary disease, unspecified; R91.8 Other nonspecific abnormal finding of lung field

== ENCOUNTER → 2021-04-10 | Outpatient (REF) | payer MEDICARE, OTHER, MEDICAID ==
[2021-04-10 10:44] LABS: BASO % 0.5 % (0.0-1.0); EOS # 0.1 10^3/uL (0.0-0.5); EOS % 0.9 % (0.0-3.0); HEMATOCRIT 31.1 % (36.0-47.0); HEMOGLOBIN 9.6 g/dl (12.0-15.5); LYMPH % 12.9 % (24.0-44.0); MEAN CORPUSCULAR HEMOGLOBIN 30.8 pg (27.0-33.0); MEAN CORPUSCULAR HGB CONC 30.9 g/dl (32.0-36.5); MEAN CORPUSCULAR VOLUME 99.7 fl (80.0-96.0); MONO # 0.6 10^3/uL (0.0-0.8); MONO % 7.9 % (2.0-8.0); NEUTROPHILS # 5.8 10^3/uL (1.5-8.5); NEUTROPHILS % 77.1 % (36.0-66.0); PLATELET COUNT, AUTOMATED 134 10^3/uL (150-450); RED BLOOD COUNT 3.12 10^6/uL (4.00-5.40); WHITE BLOOD COUNT 7.6 10^3/uL (4.0-10.0)
[2021-04-10 11:10] LABS: CALCIUM LEVEL 8.4 MG/DL (8.8-10.2); CREATININE FOR GFR 1.41 MG/DL (0.55-1.30); GLOMERULAR FILTRATION RATE 38.9 (>39); POTASSIUM SERUM 4.1 MEQ/L (3.5-5.1)
== END ==
PROVIDERS: ATTEND Physician Assistant
DX: R06.02 Shortness of breath (principal)

== ENCOUNTER → 2021-04-11 | Outpatient (REF) | payer MEDICARE, MEDICAID ==
[~2021-04-11] MED LIST changes: -FLUO-96 PO; +FLUO10CA16 PO; -FLUO10CA18 PO; +FLUO20CA20 PO; -ISOS20TA4 PO; +ISOS20TAB PO; -ONDA-84 PO; +ONDA8TAB10 PO; -POTA-151 PO; +POTA20TA6 PO
[2021-04-11 11:03] LABS: HEMATOCRIT 30.7 % (36.0-47.0); HEMOGLOBIN 9.2 g/dl (12.0-15.5); MEAN CORPUSCULAR HEMOGLOBIN 30.3 pg (27.0-33.0); PLATELET COUNT, AUTOMATED 147 10^3/uL (150-450); RED BLOOD COUNT 3.04 10^6/uL (4.00-5.40)
[2021-04-11 11:41] LABS: CALCIUM LEVEL 8.1 MG/DL (8.8-10.2); CREATININE FOR GFR 1.59 MG/DL (0.55-1.30); GLOMERULAR FILTRATION RATE 33.9 (>39); POTASSIUM SERUM 4.1 MEQ/L (3.5-5.1)
== END ==
PROVIDERS: ATTEND Physician Assistant
DX: I50.9 Heart failure, unspecified (principal)

== ENCOUNTER → 2021-04-14 | Outpatient (REF) | payer MEDICARE, MEDICAID ==
[2021-04-14 11:22] LABS: BASO # 0.1 10^3/uL (0.0-0.2); BASO % 0.6 % (0.0-1.0); EOS # 0.2 10^3/uL (0.0-0.5); EOS % 2.6 % (0.0-3.0); HEMATOCRIT 30.9 % (36.0-47.0); HEMOGLOBIN 9.4 g/dl (12.0-15.5); LYMPH % 13.3 % (24.0-44.0); MEAN CORPUSCULAR HEMOGLOBIN 30.5 pg (27.0-33.0); MEAN CORPUSCULAR HGB CONC 30.4 g/dl (32.0-36.5); MEAN CORPUSCULAR VOLUME 100.3 fl (80.0-96.0); MONO # 0.7 10^3/uL (0.0-0.8); MONO % 9.3 % (2.0-8.0); NEUTROPHILS # 5.8 10^3/uL (1.5-8.5); NEUTROPHILS % 73.8 % (36.0-66.0); PLATELET COUNT, AUTOMATED 150 10^3/uL (150-450); RED BLOOD COUNT 3.08 10^6/uL (4.00-5.40); WHITE BLOOD COUNT 7.8 10^3/uL (4.0-10.0)
[2021-04-14 11:56] LABS: CALCIUM LEVEL 8.4 MG/DL (8.8-10.2); CREATININE FOR GFR 1.87 MG/DL (0.55-1.30); GLOMERULAR FILTRATION RATE 28.1 (>39); POTASSIUM SERUM 4.3 MEQ/L (3.5-5.1)
[2021-04-14 12:01] LABS: MAGNESIUM LEVEL 2.7 MG/DL (1.8-2.4)
[2021-04-14 12:14] LABS: PTH INTACT 122.5 PG/ML (18.5-88.0)
== END ==
PROVIDERS: ATTEND Physician Assistant
DX: I50.9 Heart failure, unspecified (principal)

== ENCOUNTER → 2021-04-15 | Outpatient (CLI) | payer MEDICARE, MEDICAID ==
--- NOTE | 2021-04-15 15:21 | REP ---
INDICATION: CONGESTIVE HEART FAILURE COMPARISON: Seen 15/05 TECHNIQUE: Portable AP view of the chest FINDINGS: Cardiomegaly along with increased pulmonary vascular and interstitial markings as well as possible left lower lobe effusion and atelectasis. Findings most compatible with CHF and correlation is required. IMPRESSION: Findings described above suggest CHF. <Electronically signed by Champ Levi > 04/15/21 [id number]
== END ==
PROVIDERS: ATTEND Internal Medicine
DX: I50.9 Heart failure, unspecified (principal); N18.9 Chronic kidney disease, unspecified

== ENCOUNTER → 2021-04-15 | Outpatient (REF) | payer MEDICARE, MEDICAID ==
[2021-04-15 15:17] LABS: APPEARANCE, URINE HAZY (CLEAR); BACTERIA, URINE AUTO NEGATIVE (NEGATIVE); BILIRUBIN, URINE AUTO NEGATIVE (NEGATIVE); BLOOD, URINE BLOOD 1+ (NEGATIVE); COLOR, URINE YELLOW (YELLOW); GLUCOSE, URINE (UA) AUTO 1+ mg/dL (NEGATIVE); KETONE, URINE AUTO NEGATIVE (NEGATIVE); LEUKOCYTE ESTERASE, URINE AUTO 2+ (NEGATIVE); NITRITE, URINE AUTO NEGATIVE (NEGATIVE); PROTEIN, URINE AUTO 2+ mg/dL (NEGATIVE); RBC, URINE AUTO 3 /HPF (0-3); SPECIFIC GRAVITY URINE AUTO 1.011 (1.002-1.035); SQUAMOUS EPITHELIAL CELL UR AU 2 /HPF (0-6); UROBILINOGEN, URINE AUTO 0.2 mg/dL (0.0-2.0); WBC, URINE AUTO 28 /HPF (0-3)
== END ==
PROVIDERS: ATTEND Physician Assistant
DX: N18.9 Chronic kidney disease, unspecified (principal)

== ENCOUNTER → 2021-04-17 | Outpatient (REF) | payer MEDICARE, MEDICAID ==
[2021-04-17 11:39] LABS: HEMATOCRIT 31.7 % (36.0-47.0); HEMOGLOBIN 9.6 g/dl (12.0-15.5); MEAN CORPUSCULAR HEMOGLOBIN 30.7 pg (27.0-33.0); MEAN CORPUSCULAR HGB CONC 30.3 g/dl (32.0-36.5); MEAN CORPUSCULAR VOLUME 101.3 fl (80.0-96.0); PLATELET COUNT, AUTOMATED 161 10^3/uL (150-450); RED BLOOD COUNT 3.13 10^6/uL (4.00-5.40)
[2021-04-17 12:16] LABS: CALCIUM LEVEL 8.5 MG/DL (8.8-10.2); CREATININE FOR GFR 1.87 MG/DL (0.55-1.30); GLOMERULAR FILTRATION RATE 28.1 (>39); POTASSIUM SERUM 4.4 MEQ/L (3.5-5.1)
== END ==
PROVIDERS: ATTEND Physician Assistant
DX: I50.9 Heart failure, unspecified (principal)

== ENCOUNTER → 2021-04-21 | Outpatient (REF) | payer MEDICARE, MEDICAID ==
[2021-04-21 11:48] LABS: BASO % 0.4 % (0.0-1.0); EOS # 0.1 10^3/uL (0.0-0.5); EOS % 1.2 % (0.0-3.0); HEMATOCRIT 30.6 % (36.0-47.0); HEMOGLOBIN 9.4 g/dl (12.0-15.5); LYMPH # 0.9 10^3/uL (1.5-5.0); LYMPH % 8.6 % (24.0-44.0); MEAN CORPUSCULAR HEMOGLOBIN 30.5 pg (27.0-33.0); MEAN CORPUSCULAR HGB CONC 30.7 g/dl (32.0-36.5); MEAN CORPUSCULAR VOLUME 99.4 fl (80.0-96.0); MONO # 0.9 10^3/uL (0.0-0.8); MONO % 8.7 % (2.0-8.0); NEUTROPHILS # 8.2 10^3/uL (1.5-8.5); NEUTROPHILS % 80.8 % (36.0-66.0); PLATELET COUNT, AUTOMATED 170 10^3/uL (150-450); RED BLOOD COUNT 3.08 10^6/uL (4.00-5.40); WHITE BLOOD COUNT 10.1 10^3/uL (4.0-10.0)
[2021-04-21 12:22] LABS: ALBUMIN 2.4 GM/DL (3.2-5.2); CALCIUM LEVEL 8.2 MG/DL (8.8-10.2); CREATININE FOR GFR 2.09 MG/DL (0.55-1.30); GLOMERULAR FILTRATION RATE 24.7 (>39); MAGNESIUM LEVEL 2.4 MG/DL (1.8-2.4); PHOSPHORUS LEVEL 4.1 MG/DL (2.5-4.9); POTASSIUM SERUM 3.9 MEQ/L (3.5-5.1)
[2021-04-21 12:28] LABS: PTH INTACT 91.2 PG/ML (18.5-88.0)
== END ==
PROVIDERS: ATTEND Physician Assistant
DX: N18.9 Chronic kidney disease, unspecified (principal); D64.9 Anemia, unspecified; I50.9 Heart failure, unspecified

== ENCOUNTER → 2021-04-21 | Outpatient (REF) | payer MEDICARE, MEDICAID ==
[~2021-04-21] MED LIST changes: +FLUO-96 PO; -FLUO10CA16 PO; +FLUO10CA18 PO; -FLUO20CA20 PO; +ISOS20TA4 PO; -ISOS20TAB PO; +ONDA-84 PO; -ONDA8TAB10 PO; +POTA-151 PO; -POTA20TA6 PO
== END ==
PROVIDERS: ATTEND Physician Assistant
DX: Z53.9 Procedure and treatment not carried out, unspecified reason (principal)

== ENCOUNTER → 2021-04-23 | Outpatient (REF) | payer MEDICARE, MEDICAID | PROVIDERS: ATTEND Physician Assistant | DX: Z53.9 Procedure and treatment not carried out, unspecified reason (principal) ==

== ENCOUNTER → 2021-04-24 | Outpatient (REF) | payer MEDICARE, MEDICAID ==
[~2021-04-24] MED LIST changes: -FLUO-96 PO; +FLUO10CA16 PO; -FLUO10CA18 PO; +FLUO20CA20 PO; -ISOS20TA4 PO; +ISOS20TAB PO; -ONDA-84 PO; +ONDA8TAB10 PO; -POTA-151 PO; +POTA20TA6 PO
[2021-04-24 18:04] LABS: CALCIUM LEVEL 8.2 MG/DL (8.8-10.2); CREATININE FOR GFR 2.2 MG/DL (0.55-1.30); GLOMERULAR FILTRATION RATE 23.3 (>39); POTASSIUM SERUM 4.2 MEQ/L (3.5-5.1)
== END ==
PROVIDERS: ATTEND Internal Medicine
DX: I50.9 Heart failure, unspecified (principal)

== ENCOUNTER → 2021-04-24 | Outpatient (REF) | payer MEDICARE, MEDICAID ==
[2021-04-24 17:59] LABS: HEMATOCRIT 32.7 % (36.0-47.0); HEMOGLOBIN 9.9 g/dl (12.0-15.5); MEAN CORPUSCULAR HGB CONC 30.3 g/dl (32.0-36.5); MEAN CORPUSCULAR VOLUME 99.1 fl (80.0-96.0); PLATELET COUNT, AUTOMATED 193 10^3/uL (150-450); WHITE BLOOD COUNT 9.2 10^3/uL (4.0-10.0)
== END ==
PROVIDERS: ATTEND Internal Medicine
DX: I50.9 Heart failure, unspecified (principal)

== ENCOUNTER → 2021-04-24 | Outpatient (CLI) | payer MEDICARE, MEDICAID ==
--- NOTE | 2021-04-24 10:57 | REP ---
INDICATION: ORTHOPEDIC AFTERCARE Status post arthroplasty. COMPARISON: 03/13/2021 TECHNIQUE: Frontal view of the pelvis with neutral and frog-lateral views of the right hip FINDINGS: Visualized portions of the pelvis demonstrate stable osteopenia and degenerative changes along with right hip replacement. Iliac stents and peripheral vascular disease also identified. Neutral and frog-lateral views of the right hip demonstrates stable satisfactory appearance to the orthopedic hardware and surrounding osseous structures. IMPRESSION: Stable examination. <Electronically signed by Champ Levi > 04/24/21 [id number]
== END ==
LOC: M SOG 09:16
PROVIDERS: ATTEND Orthopaedic Surgery
DX: Z47.1 Aftercare following joint replacement surgery (principal); M85.851 Other specified disorders of bone density and structure, right thigh; Z96.641 Presence of right artificial hip joint; Z95.820 Peripheral vascular angioplasty status with implants and grafts

== ENCOUNTER → 2021-04-28 | Outpatient (REF) | payer MEDICARE, MEDICAID ==
[2021-04-28 12:25] LABS: FERRITIN 361 NG/ML (8-252); IRON (FE) 24 UG/DL (50-170)
== END ==
PROVIDERS: ATTEND Physician Assistant
DX: D64.9 Anemia, unspecified (principal)

== ENCOUNTER 2021-05-15 12:58 | Outpatient (CLI) | payer MEDICARE, MEDICAID ==
[~2021-05-15] VITALS: Ht 162.6 cm; Wt 99.0 kg
[~2021-05-15 12:58] MED LIST changes: +ALBUTEROL SULFATE 2.5 MG/0.5 ML INH NEB SOLN INH PRN; +EPINEPHrine INJ 1 MG/ML 1ML AMP IM PRN; +FLUO-96 PO; -FLUO10CA16 PO; +FLUO10CA18 PO; -FLUO20CA20 PO; +ISOS20TA4 PO; -ISOS20TAB PO; +ONDA-84 PO; -ONDA8TAB10 PO; +POTA-151 PO; -POTA20TA6 PO; +diphenhydrAMINE 50MG/ML VIAL (J1200) IV PRN; +methylPREDNISolone 125MG 2ML VIAL IV PRN
[2021-05-15] MEDS ORDERED: FERRIC CARBOXYMALTOSE INJ 750 MG, VIAL MATE ADAPTER 1 EACH in NS 250 ML IV ONE (13:00)
[2021-05-15] MEDS ORDERED: NS 1,000 ML IV SCH (13:00)
[2021-05-15 13:21] VITALS: BP 156/69
[2021-05-15 14:30] VITALS: BP 146/71
== END 2021-05-15 14:30 | disposition home or self-care (01) ==
LOC: M INFU 12:58
PROVIDERS: ATTEND Internal Medicine Nephrology
DX: D50.9 Iron deficiency anemia, unspecified (principal); Z91.040 Latex allergy status; Z91.011 Allergy to milk products
CPT/HCPCS: 96365; J1439

== ENCOUNTER → 2021-05-28 | Outpatient (REF) | payer MEDICARE, MEDICAID ==
[~2021-05-28] MED LIST changes: -ALBUTEROL SULFATE 2.5 MG/0.5 ML INH NEB SOLN INH PRN; -EPINEPHrine INJ 1 MG/ML 1ML AMP IM PRN; -diphenhydrAMINE 50MG/ML VIAL (J1200) IV PRN; -methylPREDNISolone 125MG 2ML VIAL IV PRN
[2021-05-28 13:13] LABS: HEMATOCRIT 36.7 % (36.0-47.0); HEMOGLOBIN 11.2 g/dl (12.0-15.5); MEAN CORPUSCULAR HEMOGLOBIN 29.6 pg (27.0-33.0); MEAN CORPUSCULAR HGB CONC 30.5 g/dl (32.0-36.5); MEAN CORPUSCULAR VOLUME 97.1 fl (80.0-96.0); PLATELET COUNT, AUTOMATED 147 10^3/uL (150-450); RED BLOOD COUNT 3.78 10^6/uL (4.00-5.40); WHITE BLOOD COUNT 9.7 10^3/uL (4.0-10.0)
[2021-05-28 13:55] LABS: CALCIUM LEVEL 8.4 MG/DL (8.8-10.2); CREATININE FOR GFR 2.03 MG/DL (0.55-1.30); GLOMERULAR FILTRATION RATE 25.6 (>39); POTASSIUM SERUM 4.3 MEQ/L (3.5-5.1)
== END ==
PROVIDERS: ATTEND Internal Medicine
DX: E11.9 Type 2 diabetes mellitus without complications (principal); I50.9 Heart failure, unspecified

== ENCOUNTER → 2021-06-10 | Outpatient (REF) | payer MEDICARE, MEDICAID ==
[2021-06-10 14:12] LABS: CALCIUM LEVEL 8.4 MG/DL (8.8-10.2); CREATININE FOR GFR 1.75 MG/DL (0.55-1.30); GLOMERULAR FILTRATION RATE 30.3 (>39); POTASSIUM SERUM 4.3 MEQ/L (3.5-5.1)
== END ==
PROVIDERS: ATTEND Internal Medicine
DX: R07.9 Chest pain, unspecified (principal)

== ENCOUNTER → 2021-06-10 | Outpatient (REF) | payer MEDICARE, MEDICAID ==
[2021-06-10 11:20] LABS: BASO # 0.1 10^3/uL (0.0-0.2); BASO % 0.7 % (0.0-1.0); EOS # 0.3 10^3/uL (0.0-0.5); EOS % 3.3 % (0.0-3.0); HEMATOCRIT 37.7 % (36.0-47.0); HEMOGLOBIN 11.8 g/dl (12.0-15.5); LYMPH % 12.1 % (24.0-44.0); MEAN CORPUSCULAR HEMOGLOBIN 29.8 pg (27.0-33.0); MEAN CORPUSCULAR HGB CONC 31.3 g/dl (32.0-36.5); MEAN CORPUSCULAR VOLUME 95.2 fl (80.0-96.0); MONO # 0.7 10^3/uL (0.0-0.8); MONO % 8.4 % (2.0-8.0); NEUTROPHILS # 6.1 10^3/uL (1.5-8.5); PLATELET COUNT, AUTOMATED 157 10^3/uL (150-450); RED BLOOD COUNT 3.96 10^6/uL (4.00-5.40); WHITE BLOOD COUNT 8.1 10^3/uL (4.0-10.0)
== END ==
PROVIDERS: ATTEND Internal Medicine
DX: R07.9 Chest pain, unspecified (principal)

== ENCOUNTER → 2021-06-12 | Outpatient (CLI) | payer MEDICARE, MEDICAID | PROVIDERS: ATTEND Internal Medicine | DX: M25.519 Pain in unspecified shoulder (principal) ==

== ENCOUNTER → 2021-06-18 | Outpatient (REF) | payer MEDICARE, MEDICAID ==
[2021-06-18 11:50] LABS: BASO # 0.1 10^3/uL (0.0-0.2); BASO % 0.6 % (0.0-1.0); EOS # 0.1 10^3/uL (0.0-0.5); EOS % 1.3 % (0.0-3.0); HEMATOCRIT 37.6 % (36.0-47.0); HEMOGLOBIN 11.3 g/dl (12.0-15.5); LYMPH # 0.9 10^3/uL (1.5-5.0); LYMPH % 8.8 % (24.0-44.0); MEAN CORPUSCULAR HEMOGLOBIN 29.5 pg (27.0-33.0); MEAN CORPUSCULAR HGB CONC 30.1 g/dl (32.0-36.5); MEAN CORPUSCULAR VOLUME 98.2 fl (80.0-96.0); MONO # 0.7 10^3/uL (0.0-0.8); MONO % 6.3 % (2.0-8.0); NEUTROPHILS # 8.6 10^3/uL (1.5-8.5); NEUTROPHILS % 82.4 % (36.0-66.0); PLATELET COUNT, AUTOMATED 197 10^3/uL (150-450); RED BLOOD COUNT 3.83 10^6/uL (4.00-5.40); WHITE BLOOD COUNT 10.5 10^3/uL (4.0-10.0)
[2021-06-18 12:36] LABS: ALBUMIN 2.2 GM/DL (3.2-5.2); CALCIUM LEVEL 8.3 MG/DL (8.8-10.2); CREATININE FOR GFR 2.03 MG/DL (0.55-1.30); GLOMERULAR FILTRATION RATE 25.5 (>39); MAGNESIUM LEVEL 4.7 MG/DL (1.8-2.4); PHOSPHORUS LEVEL 3.9 MG/DL (2.5-4.9); PTH INTACT 38.3 PG/ML (18.5-88.0)
== END ==
PROVIDERS: ATTEND Internal Medicine
DX: N18.9 Chronic kidney disease, unspecified (principal)

== ENCOUNTER → 2021-06-18 | Outpatient (REF) | payer MEDICARE, MEDICAID ==
[2021-06-18 18:29] LABS: AMORPHOUS SEDIMENT SMALL (NEGATIVE); APPEARANCE, URINE CLEAR (CLEAR); BACTERIA, URINE AUTO 1+ (NEGATIVE); BILIRUBIN, URINE AUTO NEGATIVE (NEGATIVE); BLOOD, URINE BLOOD 1+ (NEGATIVE); COLOR, URINE YELLOW (YELLOW); GLUCOSE, URINE (UA) AUTO NEGATIVE (NEGATIVE); KETONE, URINE AUTO NEGATIVE (NEGATIVE); LEUKOCYTE ESTERASE, URINE AUTO 3+ (NEGATIVE); MUCUS, URINE SMALL (NEGATIVE); NITRITE, URINE AUTO NEGATIVE (NEGATIVE); PROTEIN, URINE AUTO 2+ mg/dL (NEGATIVE); RBC, URINE AUTO 10 /HPF (0-3); SPECIFIC GRAVITY URINE AUTO 1.011 (1.002-1.035); SQUAMOUS EPITHELIAL CELL UR AU 45 /HPF (0-6); UROBILINOGEN, URINE AUTO 0.2 mg/dL (0.0-2.0); WBC, URINE AUTO TNTC /HPF (0-3)
== END ==
PROVIDERS: ATTEND Internal Medicine
DX: N18.9 Chronic kidney disease, unspecified (principal)

== ENCOUNTER → 2021-06-20 | Outpatient (REF) | payer MEDICARE, MEDICAID ==
[2021-06-20 18:00] LABS: CALCIUM LEVEL 8.5 MG/DL (8.8-10.2); CREATININE FOR GFR 2.1 MG/DL (0.55-1.30); GLOMERULAR FILTRATION RATE 24.5 (>39); MAGNESIUM LEVEL 4.5 MG/DL (1.8-2.4); POTASSIUM SERUM 4.4 MEQ/L (3.5-5.1)
== END ==
PROVIDERS: ATTEND Internal Medicine
DX: E83.41 Hypermagnesemia (principal)

== ENCOUNTER → 2021-07-14 | Outpatient (REF) | payer MEDICARE, MEDICAID ==
[2021-07-14 13:05] LABS: HEMATOCRIT 35.5 % (36.0-47.0); HEMOGLOBIN 11.2 g/dl (12.0-15.5); MEAN CORPUSCULAR HGB CONC 31.5 g/dl (32.0-36.5); MEAN CORPUSCULAR VOLUME 95.2 fl (80.0-96.0); PLATELET COUNT, AUTOMATED 153 10^3/uL (150-450); RED BLOOD COUNT 3.73 10^6/uL (4.00-5.40); WHITE BLOOD COUNT 9.3 10^3/uL (4.0-10.0)
[2021-07-14 13:37] LABS: CALCIUM LEVEL 9.4 MG/DL (8.8-10.2); CREATININE FOR GFR 1.96 MG/DL (0.55-1.30); GLOMERULAR FILTRATION RATE 26.5 (>39)
== END ==
PROVIDERS: ATTEND Internal Medicine
DX: N18.9 Chronic kidney disease, unspecified (principal); I50.9 Heart failure, unspecified

== ENCOUNTER → 2021-08-11 | Outpatient (REF) | payer MEDICARE, MEDICAID ==
[2021-08-11 14:00] LABS: HEMATOCRIT 32.7 % (36.0-47.0); HEMOGLOBIN 10.6 g/dl (12.0-15.5); MEAN CORPUSCULAR HEMOGLOBIN 30.9 pg (27.0-33.0); MEAN CORPUSCULAR HGB CONC 32.4 g/dl (32.0-36.5); MEAN CORPUSCULAR VOLUME 95.3 fl (80.0-96.0); PLATELET COUNT, AUTOMATED 157 10^3/uL (150-450); RED BLOOD COUNT 3.43 10^6/uL (4.00-5.40); WHITE BLOOD COUNT 12.6 10^3/uL (4.0-10.0)
[2021-08-11 14:37] LABS: CALCIUM LEVEL 9.1 MG/DL (8.8-10.2); CREATININE FOR GFR 1.92 MG/DL (0.55-1.30); GLOMERULAR FILTRATION RATE 27.2 (>39)
== END ==
PROVIDERS: ATTEND Internal Medicine
DX: I50.9 Heart failure, unspecified (principal)

== ENCOUNTER → 2021-08-13 | Outpatient (REF) | payer MEDICARE, MEDICAID ==
[~2021-08-13] MED LIST changes: +FLUO40CA PO; +JUVE1POW PO; +RISATAB3 PO; +SODIGEL
== END ==
PROVIDERS: ATTEND Internal Medicine
DX: R05.9 Cough, unspecified (principal)

== ENCOUNTER 2021-09-01 18:40 | Inpatient (IN) | payer MEDICARE, MEDICAID ==
[~2021-09-01] VITALS: Ht 157.5 cm; Wt 87.5 kg
[~2021-09-01 18:40] MED LIST changes: -FLUO40CA PO; -JUVE1POW PO; -RISATAB3 PO; -SODIGEL
[2021-09-01] MEDS: KCL 20MEQ in NS 1000ML 1,000 ML IV SCH ×2 (19:50→23:10)
[2021-09-01 19:53] LABS: BASO # 0.1 10^3/uL (0.0-0.2); BASO % 0.6 % (0.0-1.0); EOS # 0.2 10^3/uL (0.0-0.5); EOS % 1.4 % (0.0-3.0); HEMATOCRIT 37.8 % (36.0-47.0); HEMOGLOBIN 12.5 g/dl (12.0-15.5); LYMPH # 0.9 10^3/uL (1.5-5.0); LYMPH % 7.8 % (24.0-44.0); MEAN CORPUSCULAR HEMOGLOBIN 31.1 pg (27.0-33.0); MEAN CORPUSCULAR HGB CONC 33.1 g/dl (32.0-36.5); MONO # 0.8 10^3/uL (0.0-0.8); MONO % 6.9 % (2.0-8.0); NEUTROPHILS % 82.9 % (36.0-66.0); PLATELET COUNT, AUTOMATED 129 10^3/uL (150-450); RED BLOOD COUNT 4.02 10^6/uL (4.00-5.40); WHITE BLOOD COUNT 12.1 10^3/uL (4.0-10.0)
[2021-09-01 20:24] LABS: ALBUMIN 2.9 GM/DL (3.2-5.2); BILIRUBIN,DIRECT 0.2 MG/DL (0.0-0.2); BILIRUBIN,TOTAL 0.3 MG/DL (0.2-1.0); CALCIUM LEVEL 10.3 MG/DL (8.8-10.2); CREATININE FOR GFR 3.7 MG/DL (0.55-1.30); GLOMERULAR FILTRATION RATE 12.7 (>39); THYROID STIMULATING HORMONE 0.477 uIU/ML (0.358-3.740); TOTAL PROTEIN 6.4 GM/DL (6.4-8.2)
[2021-09-01 22:12] LABS: BILIRUBIN, URINE MANUAL NEGATIVE (NEGATIVE); GLUCOSE, URINE (UA) MANUAL NEGATIVE (NEGATIVE); KETONE, URINE MANUAL NEGATIVE (NEGATIVE); UROBILINOGEN, URINE MANUAL NORMAL (NORMAL)
[2021-09-01 22:25] LABS: SQUAMOUS EPITHELIAL CELL URINE SMALL AMOUNT /hpf (SMALL AMT)
[2021-09-01 22:27] LABS: BACTERIA, URINE LARGE AMOUNT; TRANSITIONAL EPI CELLS, URINE MOD AMOUNT /hpf
[2021-09-01 22:30] LABS: MUCUS, URINE SMALL AMOUNT (NEGATIVE)
[2021-09-01] MEDS ORDERED: cefTRIAXone SOD 2 GM in D5W MINI-BAG PLUS 50 ML IV ONE (22:50)
[2021-09-01] MEDS ORDERED: ACETAMINOPHEN TAB 650MG DOSE (2X325MG) PO PRN (23:30)
[2021-09-01] MEDS ORDERED: GLUCAGON INJ 1MG VIAL SC PRN (23:30)
[2021-09-01] MEDS ORDERED: DEXTROSE 50% 50 ML SYRINGE IV PRN (23:30)
[2021-09-01] MEDS ORDERED: GLUCOSE 4GM CHEW TABLET PO PRN (23:30)
[2021-09-01] MEDS ORDERED: AMLO1TAB24 PO (23:35)
[2021-09-01] MEDS ORDERED: NS 1,000 ML IV SCH (23:45)
[2021-09-01] MEDS: HumaLOG INSULIN (NovoLOG) PER UNIT SC SCH (23:49)
[2021-09-01] MEDS ORDERED: SODIGEL (23:53)
[2021-09-01] MEDS ORDERED: TORS20TA2 PO (23:53)
[2021-09-01] MEDS ORDERED: JUVE1POW PO (23:53)
[2021-09-01] MEDS ORDERED: FLUO40CA PO (23:53)
[2021-09-01] MEDS ORDERED: INSUDET SC (23:53)
[2021-09-01] MEDS ORDERED: NEPR1LIQ2 PO (23:59)
[2021-09-01] MEDS ORDERED: MEGE40SU5 PO (23:59)
[2021-09-02] VITALS (7 sets, daily range): BP systolic 136–196; BP diastolic 62–87
[2021-09-02] MEDS ORDERED: HOME MED LIST COMPLETE! XX SCH
[2021-09-02 00:24] LABS: INR 1.15; PROTHROMBIN TIME 15.1 SECONDS (12.7-14.5)
[2021-09-02 00:25] LABS: PARTIAL THROMBOPLASTIN TIME 31.1 SECONDS (25.9-37.0)
[2021-09-02 00:49] LABS: RSV AMPLIFICATION NEGATIVE (NEGATIVE)
[2021-09-02] MEDS ORDERED: BISACODYL 10 MG SUPP PR PRN (01:50)
[2021-09-02] MEDS ORDERED: POTASSIUM CHLORIDE 10MEQ SR TABLET PO ONE ×3 (02:45→08:00)
[2021-09-02 05:08] LABS: BASO # 0.1 10^3/uL (0.0-0.2); BASO % 0.6 % (0.0-1.0); EOS # 0.4 10^3/uL (0.0-0.5); EOS % 3.4 % (0.0-3.0); HEMOGLOBIN 12.4 g/dl (12.0-15.5); LYMPH # 1.8 10^3/uL (1.5-5.0); LYMPH % 16.7 % (24.0-44.0); MEAN CORPUSCULAR HEMOGLOBIN 31.2 pg (27.0-33.0); MEAN CORPUSCULAR HGB CONC 33.5 g/dl (32.0-36.5); MEAN CORPUSCULAR VOLUME 93.2 fl (80.0-96.0); MONO # 0.9 10^3/uL (0.0-0.8); MONO % 8.3 % (2.0-8.0); NEUTROPHILS # 7.6 10^3/uL (1.5-8.5); NEUTROPHILS % 70.4 % (36.0-66.0); PLATELET COUNT, AUTOMATED 118 10^3/uL (150-450); RED BLOOD COUNT 3.97 10^6/uL (4.00-5.40); WHITE BLOOD COUNT 10.8 10^3/uL (4.0-10.0)
[2021-09-02 05:34] LABS: CALCIUM LEVEL 9.7 MG/DL (8.8-10.2); CREATININE FOR GFR 3.47 MG/DL (0.55-1.30); GLOMERULAR FILTRATION RATE 13.7 (>39); POTASSIUM SERUM 3.1 MEQ/L (3.5-5.1)
[2021-09-02] MEDS: HEPARIN SOD (PORCINE) 5000UNITS/ML 1ML VIAL/SYRINGE SQ SCH ×3 (05:48→20:43)
[2021-09-02] MEDS ORDERED: VANCOMYCIN HCL 1,000 MG in IV FLUID PLACE HOLDER 1 EA IV SCH (08:00)
[2021-09-02] MEDS: HumaLOG INSULIN (NovoLOG) PER UNIT SC SCH ×4 (08:59→20:43)
[2021-09-02] MEDS: MEGESTROL 400MG 10ML SUSP ORAL SYRINGE *DRAW UP EXACT DOSE PO SCH ×2 (09:00→20:43)
[2021-09-02] MEDS: LACTOBACILLUS ACIDOPHILUS CAP (BACID) PO SCH (09:01)
[2021-09-02] MEDS: ASPIRIN 81MG ENTERIC TABLET PO SCH (09:01)
[2021-09-02] MEDS: SODIUM CHLORIDE 0.9% NASAL GEL 15GM (AYR) SCH ×2 (09:01→20:44)
[2021-09-02] MEDS: LEVEMIR (INSULIN DETEMIR) 1 UNITS/0.01ML SC SCH (09:01)
[2021-09-02] MEDS: CLOPIDOGREL 75 MG TAB PO SCH (09:02)
[2021-09-02] MEDS: amLODIPine 5 MG TAB PO SCH (09:02)
[2021-09-02] MEDS: FERROUS SULFATE 325MG TAB PO SCH (09:04)
[2021-09-02] MEDS: CARVedilol 6.25 MG TAB PO SCH ×2 (09:04→20:41)
[2021-09-02] MEDS: PANTOPRAZOLE 40MG TAB (PROTONIX) PO SCH ×2 (09:05→20:41)
[2021-09-02] MEDS: CALCITRIOL 0.25 MCG CAP (S0169) PO SCH (09:06)
[2021-09-02] MEDS: FLUoxetine 20MG CAP PO SCH (09:06)
[2021-09-02] MEDS: ISOSORBIDE DIN. (ISORDIL) 20 MG TAB PO SCH ×2 (09:06→20:42)
[2021-09-02 09:49] LABS: CALCIUM LEVEL 9.8 MG/DL (8.8-10.2); CREATININE FOR GFR 3.2 MG/DL (0.55-1.30); GLOMERULAR FILTRATION RATE 15.1 (>39); POTASSIUM SERUM 3.2 MEQ/L (3.5-5.1)
[2021-09-02] MEDS ORDERED: VANCOMYCIN HCL 1,000 MG, VIAL MATE ADAPTER 1 EACH in NS 250 ML IV ONE (10:00)
[2021-09-02] MEDS ORDERED: VANCOMYCIN HCL 750 MG, VIAL MATE ADAPTER 1 EACH in NS 250 ML IV ONE (11:00)
[2021-09-02] MEDS: KCL 20MEQ in NS 1000ML 1,000 ML IV SCH ×2 (17:55→19:20)
[2021-09-02] MEDS ORDERED: POTASSIUM CHLORIDE 10% LIQ 20 MEQ/15 ML UDC PO ONE (18:30)
[2021-09-02] MEDS: DOCUSATE SODIUM 100MG CAPSULE PO SCH (20:41)
[2021-09-02] MEDS: ATORVASTATIN 20 MG TAB PO SCH (20:42)
[2021-09-02] MEDS: cefTRIAXone SOD 1 GM in D5W MINI-BAG PLUS 50 ML IV SCH (20:43)
[2021-09-03 04:00] VITALS: BP 184/81
[2021-09-03] MEDS: HEPARIN SOD (PORCINE) 5000UNITS/ML 1ML VIAL/SYRINGE SQ SCH ×3 (05:42→21:23)
[2021-09-03 08:00] VITALS: BP 152/69
[2021-09-03] MEDS: LEVEMIR (INSULIN DETEMIR) 1 UNITS/0.01ML SC SCH (09:18)
[2021-09-03] MEDS: HumaLOG INSULIN (NovoLOG) PER UNIT SC SCH ×4 (09:19→21:22)
[2021-09-03] MEDS: MEGESTROL 400MG 10ML SUSP ORAL SYRINGE *DRAW UP EXACT DOSE PO SCH ×2 (09:19→21:20)
[2021-09-03] MEDS: FLUoxetine 20MG CAP PO SCH (09:20)
[2021-09-03] MEDS: PANTOPRAZOLE 40MG TAB (PROTONIX) PO SCH ×2 (09:20→21:21)
[2021-09-03] MEDS: LACTOBACILLUS ACIDOPHILUS CAP (BACID) PO SCH (09:20)
[2021-09-03] MEDS: ASPIRIN 81MG ENTERIC TABLET PO SCH (09:21)
[2021-09-03] MEDS: CALCITRIOL 0.25 MCG CAP (S0169) PO SCH (09:21)
[2021-09-03] MEDS: FERROUS SULFATE 325MG TAB PO SCH (09:21)
[2021-09-03] MEDS: ISOSORBIDE DIN. (ISORDIL) 20 MG TAB PO SCH ×2 (09:21→21:21)
[2021-09-03] MEDS: CARVedilol 6.25 MG TAB PO SCH ×2 (09:21→21:20)
[2021-09-03] MEDS: CLOPIDOGREL 75 MG TAB PO SCH (09:21)
[2021-09-03] MEDS: amLODIPine 5 MG TAB PO SCH (09:22)
[2021-09-03] MEDS: SODIUM CHLORIDE 0.9% NASAL GEL 15GM (AYR) SCH ×2 (09:22→21:22)
[2021-09-03] MEDS: KCL 20MEQ in NS 1000ML 1,000 ML IV SCH (09:35)
[2021-09-03] MEDS ORDERED: VANCOMYCIN HCL 500 MG in D5W MINI-BAG PLUS 100 ML IV SCH (10:00)
[2021-09-03 16:00] VITALS: BP 159/71
[2021-09-03 17:56] LABS: BASO # 0.1 10^3/uL (0.0-0.2); BASO % 0.8 % (0.0-1.0); EOS # 0.3 10^3/uL (0.0-0.5); EOS % 3.4 % (0.0-3.0); HEMATOCRIT 33.3 % (36.0-47.0); HEMOGLOBIN 10.9 g/dl (12.0-15.5); LYMPH # 1.5 10^3/uL (1.5-5.0); MEAN CORPUSCULAR HEMOGLOBIN 31.5 pg (27.0-33.0); MEAN CORPUSCULAR HGB CONC 32.7 g/dl (32.0-36.5); MEAN CORPUSCULAR VOLUME 96.2 fl (80.0-96.0); MONO # 0.7 10^3/uL (0.0-0.8); MONO % 8.5 % (2.0-8.0); NEUTROPHILS # 5.4 10^3/uL (1.5-8.5); NEUTROPHILS % 67.7 % (36.0-66.0); PLATELET COUNT, AUTOMATED 100 10^3/uL (150-450); RED BLOOD COUNT 3.46 10^6/uL (4.00-5.40)
[2021-09-03 18:23] LABS: CALCIUM LEVEL 8.9 MG/DL (8.8-10.2); CREATININE FOR GFR 2.28 MG/DL (0.55-1.30); GLOMERULAR FILTRATION RATE 22.3 (>39); MAGNESIUM LEVEL 2.4 MG/DL (1.8-2.4)
[2021-09-03 18:32] LABS: POTASSIUM SERUM 4.9 MEQ/L (3.5-5.1)
[2021-09-03] MEDS ORDERED: D5W/0.45% SODIUM CHLORIDE 1,000 ML IV SCH (18:50)
[2021-09-03] MEDS ORDERED: NS 0.45% 1,000 ML IV SCH (18:55)
[2021-09-03 20:53] VITALS: BP 168/80
[2021-09-03] MEDS: DOCUSATE SODIUM 100MG CAPSULE PO SCH (21:19)
[2021-09-03] MEDS: ATORVASTATIN 20 MG TAB PO SCH (21:20)
[2021-09-03] MEDS: cefTRIAXone SOD 1 GM in D5W MINI-BAG PLUS 50 ML IV SCH (21:22)
[2021-09-04 04:16] VITALS: BP 160/80
[2021-09-04 05:13] LABS: HEMATOCRIT 33.1 % (36.0-47.0); HEMOGLOBIN 10.8 g/dl (12.0-15.5); MEAN CORPUSCULAR HEMOGLOBIN 30.9 pg (27.0-33.0); MEAN CORPUSCULAR HGB CONC 32.6 g/dl (32.0-36.5); MEAN CORPUSCULAR VOLUME 94.8 fl (80.0-96.0); PLATELET COUNT, AUTOMATED 105 10^3/uL (150-450); RED BLOOD COUNT 3.49 10^6/uL (4.00-5.40); WHITE BLOOD COUNT 7.7 10^3/uL (4.0-10.0)
[2021-09-04 05:32] LABS: CALCIUM LEVEL 9.3 MG/DL (8.8-10.2); CREATININE FOR GFR 1.79 MG/DL (0.55-1.30); GLOMERULAR FILTRATION RATE 29.5 (>39); MAGNESIUM LEVEL 2.5 MG/DL (1.8-2.4); POTASSIUM SERUM 4.2 MEQ/L (3.5-5.1)
[2021-09-04] MEDS: HEPARIN SOD (PORCINE) 5000UNITS/ML 1ML VIAL/SYRINGE SQ SCH ×3 (06:18→21:43)
[2021-09-04] MEDS ORDERED: D5W 1,000 ML IV SCH (07:15)
[2021-09-04] MEDS: HumaLOG INSULIN (NovoLOG) PER UNIT SC SCH ×4 (07:30→21:44)
[2021-09-04 08:00] VITALS: BP 170/78
[2021-09-04] MEDS: LEVEMIR (INSULIN DETEMIR) 1 UNITS/0.01ML SC SCH (08:51)
[2021-09-04] MEDS: SODIUM CHLORIDE 0.9% NASAL GEL 15GM (AYR) SCH ×2 (08:51→21:43)
[2021-09-04] MEDS: CLOPIDOGREL 75 MG TAB PO SCH (08:52)
[2021-09-04] MEDS: FERROUS SULFATE 325MG TAB PO SCH (08:52)
[2021-09-04] MEDS: LACTOBACILLUS ACIDOPHILUS CAP (BACID) PO SCH (08:52)
[2021-09-04] MEDS: amLODIPine 5 MG TAB PO SCH (08:52)
[2021-09-04] MEDS: CALCITRIOL 0.25 MCG CAP (S0169) PO SCH (08:53)
[2021-09-04] MEDS: PANTOPRAZOLE 40MG TAB (PROTONIX) PO SCH ×2 (08:53→21:46)
[2021-09-04] MEDS: ASPIRIN 81MG ENTERIC TABLET PO SCH (08:53)
[2021-09-04] MEDS: CARVedilol 6.25 MG TAB PO SCH ×2 (08:53→21:45)
[2021-09-04] MEDS: ISOSORBIDE DIN. (ISORDIL) 20 MG TAB PO SCH ×2 (08:54→21:45)
[2021-09-04] MEDS: MEGESTROL 400MG 10ML SUSP ORAL SYRINGE *DRAW UP EXACT DOSE PO SCH ×3 (08:54→21:44)
[2021-09-04] MEDS: FLUoxetine 20MG CAP PO SCH (08:54)
[2021-09-04 11:08] LABS: INR 1.16; PROTHROMBIN TIME 15.2 SECONDS (12.7-14.5)
[2021-09-04 15:32] LABS: CALCIUM LEVEL 8.6 MG/DL (8.8-10.2); CREATININE FOR GFR 1.98 MG/DL (0.55-1.30); GLOMERULAR FILTRATION RATE 26.2 (>39); POTASSIUM SERUM 4.3 MEQ/L (3.5-5.1)
[2021-09-04 16:00] VITALS: BP 180/90
[2021-09-04 20:00] VITALS: BP 174/72
[2021-09-04] MEDS: DOCUSATE SODIUM 100MG CAPSULE PO SCH (21:44)
[2021-09-04] MEDS: ATORVASTATIN 20 MG TAB PO SCH (21:44)
[2021-09-04] MEDS: CEPHALEXIN 500 MG CAP PO SCH (21:46)
[2021-09-05] MEDS: CEPHALEXIN 500 MG CAP PO SCH ×4 (03:58→20:53)
[2021-09-05 05:14] LABS: HEMATOCRIT 33.5 % (36.0-47.0); HEMOGLOBIN 10.8 g/dl (12.0-15.5); MEAN CORPUSCULAR HEMOGLOBIN 30.6 pg (27.0-33.0); MEAN CORPUSCULAR HGB CONC 32.2 g/dl (32.0-36.5); MEAN CORPUSCULAR VOLUME 94.9 fl (80.0-96.0); PLATELET COUNT, AUTOMATED 101 10^3/uL (150-450); RED BLOOD COUNT 3.53 10^6/uL (4.00-5.40); WHITE BLOOD COUNT 7.7 10^3/uL (4.0-10.0)
[2021-09-05 05:38] LABS: CALCIUM LEVEL 9.4 MG/DL (8.8-10.2); CREATININE FOR GFR 1.78 MG/DL (0.55-1.30); GLOMERULAR FILTRATION RATE 29.7 (>39); MAGNESIUM LEVEL 2.3 MG/DL (1.8-2.4); POTASSIUM SERUM 4.3 MEQ/L (3.5-5.1)
[2021-09-05] MEDS: HEPARIN SOD (PORCINE) 5000UNITS/ML 1ML VIAL/SYRINGE SQ SCH ×3 (06:15→20:54)
[2021-09-05] MEDS ORDERED: D5W 1,000 ML IV SCH (06:50)
[2021-09-05 07:43] VITALS: BP 170/72
[2021-09-05] MEDS: HumaLOG INSULIN (NovoLOG) PER UNIT SC SCH ×4 (09:05→20:45)
[2021-09-05] MEDS: MEGESTROL 400MG 10ML SUSP ORAL SYRINGE *DRAW UP EXACT DOSE PO SCH ×2 (09:05→20:53)
[2021-09-05] MEDS: amLODIPine 5 MG TAB PO SCH (09:06)
[2021-09-05] MEDS: CARVedilol 6.25 MG TAB PO SCH ×2 (09:06→20:54)
[2021-09-05] MEDS: LACTOBACILLUS ACIDOPHILUS CAP (BACID) PO SCH (09:06)
[2021-09-05] MEDS: ASPIRIN 81MG ENTERIC TABLET PO SCH (09:06)
[2021-09-05] MEDS: FERROUS SULFATE 325MG TAB PO SCH (09:06)
[2021-09-05] MEDS: CLOPIDOGREL 75 MG TAB PO SCH (09:07)
[2021-09-05] MEDS: CALCITRIOL 0.25 MCG CAP (S0169) PO SCH (09:07)
[2021-09-05] MEDS: ISOSORBIDE DIN. (ISORDIL) 20 MG TAB PO SCH ×2 (09:08→20:54)
[2021-09-05] MEDS: SODIUM CHLORIDE 0.9% NASAL GEL 15GM (AYR) SCH ×2 (09:08→20:53)
[2021-09-05] MEDS: PANTOPRAZOLE 40MG TAB (PROTONIX) PO SCH ×2 (09:08→20:53)
[2021-09-05] MEDS: LEVEMIR (INSULIN DETEMIR) 1 UNITS/0.01ML SC SCH (09:08)
[2021-09-05] MEDS: FLUoxetine 20MG CAP PO SCH (09:08)
[2021-09-05 12:19] VITALS: BP 139/68
[2021-09-05 15:55] VITALS: BP 163/71
[2021-09-05 20:48] VITALS: BP 118/62
[2021-09-05] MEDS: DOCUSATE SODIUM 100MG CAPSULE PO SCH (20:55)
[2021-09-05] MEDS: ATORVASTATIN 20 MG TAB PO SCH (20:56)
[2021-09-05] MEDS ORDERED: OLANZapine INTRAMUSCULAR 10MG VIAL IM ONE (23:45)
[2021-09-06] MEDS: CEPHALEXIN 500 MG CAP PO SCH ×4 (03:54→20:37)
[2021-09-06 04:03] VITALS: BP 167/95
[2021-09-06 05:17] LABS: HEMOGLOBIN 10.9 g/dl (12.0-15.5); MEAN CORPUSCULAR HEMOGLOBIN 31.2 pg (27.0-33.0); MEAN CORPUSCULAR VOLUME 94.6 fl (80.0-96.0); PLATELET COUNT, AUTOMATED 105 10^3/uL (150-450); RED BLOOD COUNT 3.49 10^6/uL (4.00-5.40); WHITE BLOOD COUNT 9.4 10^3/uL (4.0-10.0)
[2021-09-06] MEDS: HEPARIN SOD (PORCINE) 5000UNITS/ML 1ML VIAL/SYRINGE SQ SCH ×3 (05:27→20:37)
[2021-09-06 05:40] LABS: CALCIUM LEVEL 8.7 MG/DL (8.8-10.2); CREATININE FOR GFR 1.77 MG/DL (0.55-1.30); GLOMERULAR FILTRATION RATE 29.9 (>39); MAGNESIUM LEVEL 2.2 MG/DL (1.8-2.4)
[2021-09-06] MEDS: HumaLOG INSULIN (NovoLOG) PER UNIT SC SCH ×4 (07:30→19:51)
[2021-09-06 08:00] VITALS: BP 149/67
[2021-09-06] MEDS: MEGESTROL 400MG 10ML SUSP ORAL SYRINGE *DRAW UP EXACT DOSE PO SCH ×2 (09:00→20:37)
[2021-09-06] MEDS: SODIUM CHLORIDE 0.9% NASAL GEL 15GM (AYR) SCH ×2 (09:00→20:37)
[2021-09-06] MEDS: PANTOPRAZOLE 40MG TAB (PROTONIX) PO SCH ×2 (09:00→20:38)
[2021-09-06] MEDS: CARVedilol 6.25 MG TAB PO SCH ×2 (09:00→20:37)
[2021-09-06] MEDS: ISOSORBIDE DIN. (ISORDIL) 20 MG TAB PO SCH ×2 (09:00→20:38)
[2021-09-06] MEDS: FLUoxetine 20MG CAP PO SCH (09:00)
[2021-09-06] MEDS: CLOPIDOGREL 75 MG TAB PO SCH (09:00)
[2021-09-06] MEDS: LACTOBACILLUS ACIDOPHILUS CAP (BACID) PO SCH (09:00)
[2021-09-06] MEDS: FERROUS SULFATE 325MG TAB PO SCH (09:00)
[2021-09-06] MEDS: LEVEMIR (INSULIN DETEMIR) 1 UNITS/0.01ML SC SCH (09:00)
[2021-09-06] MEDS: amLODIPine 5 MG TAB PO SCH (09:00)
[2021-09-06] MEDS: ASPIRIN 81MG ENTERIC TABLET PO SCH (09:00)
[2021-09-06] MEDS ORDERED: OLANZapine INTRAMUSCULAR 10MG VIAL IM PRN (15:00)
[2021-09-06 19:57] VITALS: BP 120/62
[2021-09-06] MEDS: ATORVASTATIN 20 MG TAB PO SCH (20:37)
[2021-09-06] MEDS: DOCUSATE SODIUM 100MG CAPSULE PO SCH (20:38)
[2021-09-06 22:00] VITALS: BP 119/84
[2021-09-07] MEDS: CEPHALEXIN 500 MG CAP PO SCH ×3 (03:58→15:01)
[2021-09-07] MEDS: HEPARIN SOD (PORCINE) 5000UNITS/ML 1ML VIAL/SYRINGE SQ SCH ×3 (05:59→21:58)
[2021-09-07 06:00] VITALS: BP 118/82
[2021-09-07] MEDS: HumaLOG INSULIN (NovoLOG) PER UNIT SC SCH ×4 (07:30→21:00)
[2021-09-07 07:49] LABS: HEMATOCRIT 31.4 % (36.0-47.0); HEMOGLOBIN 10.1 g/dl (12.0-15.5); MEAN CORPUSCULAR HEMOGLOBIN 31.3 pg (27.0-33.0); MEAN CORPUSCULAR HGB CONC 32.2 g/dl (32.0-36.5); MEAN CORPUSCULAR VOLUME 97.2 fl (80.0-96.0); PLATELET COUNT, AUTOMATED 100 10^3/uL (150-450); RED BLOOD COUNT 3.23 10^6/uL (4.00-5.40)
[2021-09-07 08:16] LABS: CALCIUM LEVEL 8.5 MG/DL (8.8-10.2); CREATININE FOR GFR 2.28 MG/DL (0.55-1.30); GLOMERULAR FILTRATION RATE 22.3 (>39); MAGNESIUM LEVEL 2.5 MG/DL (1.8-2.4); POTASSIUM SERUM 4.4 MEQ/L (3.5-5.1)
[2021-09-07] MEDS: FLUoxetine 20MG CAP PO SCH (09:23)
[2021-09-07] MEDS: ASPIRIN 81MG ENTERIC TABLET PO SCH (09:23)
[2021-09-07] MEDS: amLODIPine 5 MG TAB PO SCH (09:23)
[2021-09-07] MEDS: MEGESTROL 400MG 10ML SUSP ORAL SYRINGE *DRAW UP EXACT DOSE PO SCH ×2 (09:23→21:00)
[2021-09-07] MEDS: LEVEMIR (INSULIN DETEMIR) 1 UNITS/0.01ML SC SCH (09:23)
[2021-09-07] MEDS: CLOPIDOGREL 75 MG TAB PO SCH (09:24)
[2021-09-07] MEDS: PANTOPRAZOLE 40MG TAB (PROTONIX) PO SCH ×2 (09:24→21:00)
[2021-09-07] MEDS: ISOSORBIDE DIN. (ISORDIL) 20 MG TAB PO SCH ×2 (09:24→21:00)
[2021-09-07] MEDS: CARVedilol 6.25 MG TAB PO SCH ×2 (09:24→21:00)
[2021-09-07] MEDS: LACTOBACILLUS ACIDOPHILUS CAP (BACID) PO SCH (09:24)
[2021-09-07] MEDS: FERROUS SULFATE 325MG TAB PO SCH (09:24)
[2021-09-07] MEDS: SODIUM CHLORIDE 0.9% NASAL GEL 15GM (AYR) SCH ×2 (09:25→21:00)
[2021-09-07] MEDS ORDERED: NS 0.45% 1,000 ML IV SCH (09:35)
[2021-09-07 14:00] VITALS: BP 149/78
[2021-09-07] MEDS: DOCUSATE SODIUM 100MG CAPSULE PO SCH (21:00)
[2021-09-07] MEDS: ATORVASTATIN 20 MG TAB PO SCH (21:00)
[2021-09-07 22:00] VITALS: BP 148/62
[2021-09-08] MEDS: HEPARIN SOD (PORCINE) 5000UNITS/ML 1ML VIAL/SYRINGE SQ SCH (05:30)
[2021-09-08 06:00] VITALS: BP 139/88
[2021-09-08 07:02] LABS: HEMATOCRIT 31.9 % (36.0-47.0); HEMOGLOBIN 10.1 g/dl (12.0-15.5); MEAN CORPUSCULAR HGB CONC 31.7 g/dl (32.0-36.5); MEAN CORPUSCULAR VOLUME 97.9 fl (80.0-96.0); RED BLOOD COUNT 3.26 10^6/uL (4.00-5.40); WHITE BLOOD COUNT 6.7 10^3/uL (4.0-10.0)
[2021-09-08 07:04] LABS: PLATELET COUNT, AUTOMATED 89 10^3/uL (150-450)
[2021-09-08 07:22] LABS: CALCIUM LEVEL 8.3 MG/DL (8.8-10.2); CREATININE FOR GFR 2.17 MG/DL (0.55-1.30); GLOMERULAR FILTRATION RATE 23.6 (>39); MAGNESIUM LEVEL 2.6 MG/DL (1.8-2.4); POTASSIUM SERUM 4.2 MEQ/L (3.5-5.1)
[2021-09-08] MEDS: HumaLOG INSULIN (NovoLOG) PER UNIT SC SCH ×2 (08:30→12:00)
[2021-09-08] MEDS: LEVEMIR (INSULIN DETEMIR) 1 UNITS/0.01ML SC SCH (09:16)
[2021-09-08] MEDS: amLODIPine 5 MG TAB PO SCH ×2 (09:16→09:30)
[2021-09-08] MEDS: FERROUS SULFATE 325MG TAB PO SCH ×2 (09:16→09:30)
[2021-09-08] MEDS: CEPHALEXIN 500 MG CAP PO SCH ×2 (09:16→09:30)
[2021-09-08] MEDS: LACTOBACILLUS ACIDOPHILUS CAP (BACID) PO SCH ×2 (09:16→09:30)
[2021-09-08] MEDS: CLOPIDOGREL 75 MG TAB PO SCH ×2 (09:17→09:30)
[2021-09-08] MEDS: CALCITRIOL 0.25 MCG CAP (S0169) PO SCH ×2 (09:17→09:30)
[2021-09-08] MEDS: ISOSORBIDE DIN. (ISORDIL) 20 MG TAB PO SCH ×2 (09:17→09:30)
[2021-09-08] MEDS: CARVedilol 6.25 MG TAB PO SCH ×2 (09:17→09:30)
[2021-09-08] MEDS: ASPIRIN 81MG ENTERIC TABLET PO SCH ×2 (09:17→09:30)
[2021-09-08] MEDS: FLUoxetine 20MG CAP PO SCH ×2 (09:17→09:30)
[2021-09-08] MEDS: PANTOPRAZOLE 40MG TAB (PROTONIX) PO SCH ×2 (09:17→09:30)
[2021-09-08] MEDS: MEGESTROL 400MG 10ML SUSP ORAL SYRINGE *DRAW UP EXACT DOSE PO SCH (09:18)
[2021-09-08] MEDS: SODIUM CHLORIDE 0.9% NASAL GEL 15GM (AYR) SCH ×2 (09:18→09:30)
[2021-09-08 09:30] VITALS: BP 139/88
[2021-09-08] MEDS ORDERED: CEPH500C PO (10:22)
[2021-09-08] MEDS ORDERED: RISATAB3 PO (10:22)
== END 2021-09-08 12:50 | DRG 683 ==
LOC: M ED 18:40 → M ED INP 23:30 → EEVIPCON 23:30 → M PCU 09-02 02:12 → M MS5PR 09-06 22:26
PROVIDERS: ADMIT Family Medicine; ATTEND Family Medicine
DX: N17.9 Acute kidney failure, unspecified (principal); N39.0 Urinary tract infection, site not specified; I13.0 Hypertensive heart and chronic kidney disease with heart failure and stage 1 through stage 4 chronic kidney disease, or unspecified chronic kidney disease; I50.32 Chronic diastolic (congestive) heart failure; E87.0 Hyperosmolality and hypernatremia; Z68.41 Body mass index [BMI] 40.0-44.9, adult; G47.33 Obstructive sleep apnea (adult) (pediatric); E11.22 Type 2 diabetes mellitus with diabetic chronic kidney disease; E11.65 Type 2 diabetes mellitus with hyperglycemia; E11.42 Type 2 diabetes mellitus with diabetic polyneuropathy; I48.0 Paroxysmal atrial fibrillation; J44.9 Chronic obstructive pulmonary disease, unspecified; E78.5 Hyperlipidemia, unspecified; F31.9 Bipolar disorder, unspecified; N18.32 Chronic kidney disease, stage 3b; E11.51 Type 2 diabetes mellitus with diabetic peripheral angiopathy without gangrene; D50.9 Iron deficiency anemia, unspecified; E55.9 Vitamin D deficiency, unspecified; E87.6 Hypokalemia; E66.9 Obesity, unspecified; Z79.899 Other long term (current) drug therapy; Z79.82 Long term (current) use of aspirin; Z79.4 Long term (current) use of insulin; Z91.040 Latex allergy status; Z91.011 Allergy to milk products; N25.81 Secondary hyperparathyroidism of renal origin; Z89.422 Acquired absence of other left toe(s)

== ENCOUNTER → 2021-09-01 | Outpatient (REF) | payer MEDICARE, MEDICAID ==
[2021-09-01 16:02] LABS: HEMATOCRIT 38.4 % (36.0-47.0); HEMOGLOBIN 12.3 g/dl (12.0-15.5); MEAN CORPUSCULAR HEMOGLOBIN 30.8 pg (27.0-33.0); PLATELET COUNT, AUTOMATED 132 10^3/uL (150-450)
[2021-09-01 16:53] LABS: CALCIUM LEVEL 10.1 MG/DL (8.8-10.2); CREATININE FOR GFR 3.7 MG/DL (0.55-1.30); GLOMERULAR FILTRATION RATE 12.7 (>39); POTASSIUM SERUM 2.7 MEQ/L (3.5-5.1)
== END ==
PROVIDERS: ATTEND Internal Medicine
DX: Z79.899 Other long term (current) drug therapy (principal)

== ENCOUNTER → 2021-09-03 | Outpatient (REF) | payer MEDICARE, MEDICAID ==
[~2021-09-03] MED LIST changes: +FLUO40CA PO; +JUVE1POW PO; +RISATAB3 PO; +SODIGEL
== END ==
LOC: EEVIPCON
PROVIDERS: ATTEND Internal Medicine
DX: R53.83 Other fatigue (principal); Z53.9 Procedure and treatment not carried out, unspecified reason

== ENCOUNTER → 2021-09-09 | Outpatient (REF) ==
[2021-09-09 11:27] LABS: HEMATOCRIT 32.9 % (36.0-47.0); HEMOGLOBIN 10.3 g/dl (12.0-15.5); MEAN CORPUSCULAR HEMOGLOBIN 31.2 pg (27.0-33.0); MEAN CORPUSCULAR HGB CONC 31.3 g/dl (32.0-36.5); MEAN CORPUSCULAR VOLUME 99.7 fl (80.0-96.0); PLATELET COUNT, AUTOMATED 104 10^3/uL (150-450); WHITE BLOOD COUNT 9.4 10^3/uL (4.0-10.0)
[2021-09-09 11:53] LABS: CALCIUM LEVEL 8.3 MG/DL (8.8-10.2); CREATININE FOR GFR 2.11 MG/DL (0.55-1.30); GLOMERULAR FILTRATION RATE 24.4 (>39); POTASSIUM SERUM 4.4 MEQ/L (3.5-5.1)
== END ==
PROVIDERS: ATTEND Internal Medicine
DX: N18.9 Chronic kidney disease, unspecified (principal)

== ENCOUNTER → 2021-09-10 | Outpatient (REF) | payer MEDICARE, MEDICAID ==
[2021-09-10 14:37] LABS: CALCIUM LEVEL 7.5 MG/DL (8.8-10.2); CREATININE FOR GFR 2.18 MG/DL (0.55-1.30); GLOMERULAR FILTRATION RATE 23.5 (>39); POTASSIUM SERUM 4.1 MEQ/L (3.5-5.1)
== END ==
PROVIDERS: ATTEND Internal Medicine
DX: I50.9 Heart failure, unspecified (principal)

== ENCOUNTER → 2021-09-15 | Outpatient (REF) | payer MEDICARE, MEDICAID ==
[2021-09-15 12:04] LABS: HEMATOCRIT 29.3 % (36.0-47.0); HEMOGLOBIN 9.3 g/dl (12.0-15.5); MEAN CORPUSCULAR HEMOGLOBIN 31.4 pg (27.0-33.0); MEAN CORPUSCULAR HGB CONC 31.7 g/dl (32.0-36.5); PLATELET COUNT, AUTOMATED 125 10^3/uL (150-450); RED BLOOD COUNT 2.96 10^6/uL (4.00-5.40); WHITE BLOOD COUNT 7.5 10^3/uL (4.0-10.0)
[2021-09-15 12:29] LABS: CALCIUM LEVEL 8.2 MG/DL (8.8-10.2); CREATININE FOR GFR 1.96 MG/DL (0.55-1.30); GLOMERULAR FILTRATION RATE 26.5 (>39); POTASSIUM SERUM 4.5 MEQ/L (3.5-5.1)
== END ==
PROVIDERS: ATTEND Internal Medicine
DX: I50.9 Heart failure, unspecified (principal)

== ENCOUNTER → 2021-09-29 | Outpatient (REF) | payer MEDICARE, MEDICAID ==
[2021-09-29 12:53] LABS: ALBUMIN 2.4 GM/DL (3.2-5.2); MAGNESIUM LEVEL 2.8 MG/DL (1.8-2.4)
[2021-09-29 13:00] LABS: PTH INTACT 41.3 PG/ML (18.5-88.0)
== END ==
PROVIDERS: ATTEND Internal Medicine
DX: I50.9 Heart failure, unspecified (principal)

== ENCOUNTER → 2021-10-13 | Outpatient (REF) ==
[2021-10-13 11:24] LABS: HEMATOCRIT 30.9 % (36.0-47.0); HEMOGLOBIN 9.7 g/dl (12.0-15.5); MEAN CORPUSCULAR HEMOGLOBIN 31.5 pg (27.0-33.0); MEAN CORPUSCULAR HGB CONC 31.4 g/dl (32.0-36.5); MEAN CORPUSCULAR VOLUME 100.3 fl (80.0-96.0); PLATELET COUNT, AUTOMATED 137 10^3/uL (150-450); RED BLOOD COUNT 3.08 10^6/uL (4.00-5.40)
[2021-10-13 12:03] LABS: CREATININE FOR GFR 1.65 MG/DL (0.55-1.30); GLOMERULAR FILTRATION RATE 32.4 (>39); POTASSIUM SERUM 4.7 MEQ/L (3.5-5.1)
== END ==
PROVIDERS: ATTEND Internal Medicine
DX: N18.9 Chronic kidney disease, unspecified (principal); I50.9 Heart failure, unspecified

== ENCOUNTER → 2021-10-14 | Outpatient (REF) | payer MEDICARE, MEDICAID ==
[2021-10-14 14:35] LABS: CALCIUM LEVEL 9.3 MG/DL (8.8-10.2); CREATININE FOR GFR 1.73 MG/DL (0.55-1.30); GLOMERULAR FILTRATION RATE 30.7 (>39); POTASSIUM SERUM 4.6 MEQ/L (3.5-5.1)
== END ==
PROVIDERS: ATTEND Internal Medicine
DX: E86.0 Dehydration (principal)

== ENCOUNTER → 2021-10-15 | Outpatient (REF) | payer MEDICARE, MEDICAID ==
[2021-10-15 12:03] LABS: CREATININE FOR GFR 1.93 MG/DL (0.55-1.30); POTASSIUM SERUM 4.8 MEQ/L (3.5-5.1)
== END ==
PROVIDERS: ATTEND Internal Medicine
DX: E86.0 Dehydration (principal)

== ENCOUNTER → 2021-10-18 | Outpatient (REF) | PROVIDERS: ATTEND Internal Medicine | DX: I50.9 Heart failure, unspecified (principal); Z53.8 Procedure and treatment not carried out for other reasons ==

== ENCOUNTER → 2021-11-10 | Outpatient (REF) | payer MEDICARE, MEDICAID ==
[2021-11-10 13:39] LABS: HEMATOCRIT 30.7 % (36.0-47.0); HEMOGLOBIN 9.7 g/dl (12.0-15.5); MEAN CORPUSCULAR HEMOGLOBIN 31.8 pg (27.0-33.0); MEAN CORPUSCULAR HGB CONC 31.6 g/dl (32.0-36.5); MEAN CORPUSCULAR VOLUME 100.7 fl (80.0-96.0); PLATELET COUNT, AUTOMATED 132 10^3/uL (150-450); RED BLOOD COUNT 3.05 10^6/uL (4.00-5.40); WHITE BLOOD COUNT 9.5 10^3/uL (4.0-10.0)
[2021-11-10 14:21] LABS: CALCIUM LEVEL 8.4 MG/DL (8.8-10.2); CREATININE FOR GFR 1.68 MG/DL (0.55-1.30); GLOMERULAR FILTRATION RATE 31.7 (>39); POTASSIUM SERUM 4.7 MEQ/L (3.5-5.1)
== END ==
PROVIDERS: ATTEND Internal Medicine
DX: N18.9 Chronic kidney disease, unspecified (principal); I50.9 Heart failure, unspecified

== ENCOUNTER → 2021-11-13 | Outpatient (REF) | payer MEDICARE, MEDICAID ==
[2021-11-13 20:58] LABS: CALCIUM LEVEL 8.9 MG/DL (8.8-10.2); CREATININE FOR GFR 1.69 MG/DL (0.55-1.30); GLOMERULAR FILTRATION RATE 31.5 (>39); POTASSIUM SERUM 5.2 MEQ/L (3.5-5.1)
== END ==
PROVIDERS: ATTEND Internal Medicine
DX: E86.0 Dehydration (principal)

== ENCOUNTER → 2021-11-26 | Outpatient (REF) | payer MEDICARE, MEDICAID | PROVIDERS: ATTEND Internal Medicine | DX: N18.9 Chronic kidney disease, unspecified (principal) ==

== ENCOUNTER → 2021-12-08 | Outpatient (REF) | payer MEDICARE, MEDICAID ==
[2021-12-08 14:25] LABS: HEMATOCRIT 31.4 % (36.0-47.0); HEMOGLOBIN 9.9 g/dl (12.0-15.5); MEAN CORPUSCULAR HEMOGLOBIN 31.6 pg (27.0-33.0); MEAN CORPUSCULAR HGB CONC 31.5 g/dl (32.0-36.5); MEAN CORPUSCULAR VOLUME 100.3 fl (80.0-96.0); PLATELET COUNT, AUTOMATED 156 10^3/uL (150-450); RED BLOOD COUNT 3.13 10^6/uL (4.00-5.40); WHITE BLOOD COUNT 10.2 10^3/uL (4.0-10.0)
== END ==
PROVIDERS: ATTEND Internal Medicine
DX: Z79.899 Other long term (current) drug therapy (principal)

== ENCOUNTER → 2022-01-12 | Outpatient (REF) | payer MEDICARE, MEDICAID | PROVIDERS: ATTEND Internal Medicine | DX: N39.0 Urinary tract infection, site not specified (principal) ==

== ENCOUNTER → 2022-01-14 | Outpatient (REF) | payer MEDICARE, MEDICAID ==
[2022-01-12 10:34] LABS: HEMOGLOBIN 8.9 g/dl (12.0-15.5); MEAN CORPUSCULAR HEMOGLOBIN 32.8 pg (27.0-33.0); MEAN CORPUSCULAR VOLUME 99.6 fl (80.0-96.0); PLATELET COUNT, AUTOMATED 143 10^3/uL (150-450); RED BLOOD COUNT 2.71 10^6/uL (4.00-5.40); WHITE BLOOD COUNT 7.7 10^3/uL (4.0-10.0)
[2022-01-12 11:15] LABS: CALCIUM LEVEL 8.4 MG/DL (8.8-10.2); CREATININE FOR GFR 1.47 MG/DL (0.55-1.30); POTASSIUM SERUM 4.4 MEQ/L (3.5-5.1)
== END ==
PROVIDERS: ATTEND Internal Medicine
DX: I50.9 Heart failure, unspecified (principal); N18.9 Chronic kidney disease, unspecified

== ENCOUNTER → 2022-02-09 | Outpatient (REF) | payer MEDICARE, MEDICAID ==
[2022-02-09 10:32] LABS: HEMATOCRIT 32.7 % (36.0-47.0); HEMOGLOBIN 10.3 g/dl (12.0-15.5); MEAN CORPUSCULAR HEMOGLOBIN 32.2 pg (27.0-33.0); MEAN CORPUSCULAR HGB CONC 31.5 g/dl (32.0-36.5); MEAN CORPUSCULAR VOLUME 102.2 fl (80.0-96.0); PLATELET COUNT, AUTOMATED 166 10^3/uL (150-450); WHITE BLOOD COUNT 8.3 10^3/uL (4.0-10.0)
[2022-02-09 11:23] LABS: CALCIUM LEVEL 8.6 MG/DL (8.8-10.2); CREATININE FOR GFR 1.52 MG/DL (0.55-1.30); GLOMERULAR FILTRATION RATE 35.6 (>39); POTASSIUM SERUM 4.4 MEQ/L (3.5-5.1)
== END ==
PROVIDERS: ATTEND Internal Medicine
DX: I50.9 Heart failure, unspecified (principal); N18.9 Chronic kidney disease, unspecified

== ENCOUNTER → 2022-02-20 | Outpatient (REF) | payer MEDICARE, MEDICAID ==
[2022-02-20 11:28] LABS: CALCIUM LEVEL 8.5 MG/DL (8.8-10.2); CREATININE FOR GFR 1.55 MG/DL (0.55-1.30); GLOMERULAR FILTRATION RATE 34.8 (>39); POTASSIUM SERUM 4.7 MEQ/L (3.5-5.1)
== END ==
PROVIDERS: ATTEND Internal Medicine
DX: E86.0 Dehydration (principal)

== ENCOUNTER → 2022-02-23 | Outpatient (REF) | payer MEDICARE, MEDICAID ==
[~2022-02-23] MED LIST changes: +CLOP75TA99 PO; -PLAV1TAB2 PO
[2022-02-23 16:26] LABS: CALCIUM LEVEL 8.9 MG/DL (8.8-10.2); CREATININE FOR GFR 1.62 MG/DL (0.55-1.30); GLOMERULAR FILTRATION RATE 33.1 (>39); POTASSIUM SERUM 4.7 MEQ/L (3.5-5.1)
== END ==
PROVIDERS: ATTEND Internal Medicine
DX: E86.0 Dehydration (principal)

== ENCOUNTER → 2022-03-02 | Outpatient (REF) | payer MEDICARE, MEDICAID ==
[2022-03-02 10:33] LABS: CALCIUM LEVEL 8.9 MG/DL (8.8-10.2); CREATININE FOR GFR 1.54 MG/DL (0.55-1.30); GLOMERULAR FILTRATION RATE 35.1 (>39); POTASSIUM SERUM 4.5 MEQ/L (3.5-5.1)
== END ==
PROVIDERS: ATTEND Internal Medicine
DX: E86.0 Dehydration (principal)

== ENCOUNTER → 2022-03-09 | Outpatient (REF) | payer MEDICARE, MEDICAID ==
[2022-03-09 11:41] LABS: HEMATOCRIT 29.2 % (36.0-47.0); MEAN CORPUSCULAR HEMOGLOBIN 32.7 pg (27.0-33.0); MEAN CORPUSCULAR HGB CONC 30.8 g/dl (32.0-36.5); MEAN CORPUSCULAR VOLUME 106.2 fl (80.0-96.0); PLATELET COUNT, AUTOMATED 150 10^3/uL (150-450); RED BLOOD COUNT 2.75 10^6/uL (4.00-5.40); WHITE BLOOD COUNT 8.5 10^3/uL (4.0-10.0)
[2022-03-09 12:38] LABS: CALCIUM LEVEL 8.2 MG/DL (8.8-10.2); CREATININE FOR GFR 1.86 MG/DL (0.55-1.30); GLOMERULAR FILTRATION RATE 28.2 (>39)
== END ==
PROVIDERS: ATTEND Internal Medicine
DX: I50.9 Heart failure, unspecified (principal); N18.9 Chronic kidney disease, unspecified

== ENCOUNTER → 2022-03-11 | Outpatient (REF) | payer MEDICARE, MEDICAID ==
[2022-03-11 11:17] LABS: CALCIUM LEVEL 8.4 MG/DL (8.3-10.6); CREATININE FOR GFR 1.78 MG/DL (0.55-1.30); GLOMERULAR FILTRATION RATE 29.7 (>39); POTASSIUM SERUM 5.3 MMOL/L (3.5-5.1)
== END ==
PROVIDERS: ATTEND Internal Medicine
DX: I50.9 Heart failure, unspecified (principal)

== ENCOUNTER → 2022-03-13 | Outpatient (REF) | payer MEDICARE, MEDICAID ==
[2022-03-13 15:50] LABS: CREATININE FOR GFR 1.51 MG/DL (0.55-1.30); GLOMERULAR FILTRATION RATE 35.9 (>39); POTASSIUM SERUM 5.7 MMOL/L (3.5-5.1)
== END ==
PROVIDERS: ATTEND Internal Medicine
DX: E87.5 Hyperkalemia (principal)

== ENCOUNTER → 2022-03-16 | Outpatient (REF) | payer MEDICARE, MEDICAID ==
[2022-03-16 10:08] LABS: HEMOGLOBIN 9.5 g/dl (12.0-15.5); MEAN CORPUSCULAR HEMOGLOBIN 32.2 pg (27.0-33.0); MEAN CORPUSCULAR HGB CONC 30.6 g/dl (32.0-36.5); MEAN CORPUSCULAR VOLUME 105.1 fl (80.0-96.0); PLATELET COUNT, AUTOMATED 151 10^3/uL (150-450); RED BLOOD COUNT 2.95 10^6/uL (4.00-5.40); WHITE BLOOD COUNT 7.2 10^3/uL (4.0-10.0)
[2022-03-16 10:34] LABS: CALCIUM LEVEL 8.4 MG/DL (8.3-10.6); CREATININE FOR GFR 1.5 MG/DL (0.55-1.30); GLOMERULAR FILTRATION RATE 36.1 (>39); POTASSIUM SERUM 4.7 MMOL/L (3.5-5.1)
== END ==
PROVIDERS: ATTEND Internal Medicine
DX: E87.5 Hyperkalemia (principal)

== ENCOUNTER → 2022-03-17 | Outpatient (REF) | payer MEDICARE, MEDICAID ==
[2022-03-17 11:47] LABS: CALCIUM LEVEL 7.9 MG/DL (8.3-10.6); CREATININE FOR GFR 1.68 MG/DL (0.55-1.30); GLOMERULAR FILTRATION RATE 31.7 (>39); POTASSIUM SERUM 4.9 MMOL/L (3.5-5.1)
== END ==
PROVIDERS: ATTEND Internal Medicine
DX: E87.0 Hyperosmolality and hypernatremia (principal)

== ENCOUNTER → 2022-03-18 | Outpatient (REF) | payer MEDICARE, MEDICAID ==
[2022-03-18 11:08] LABS: CALCIUM LEVEL 8.1 MG/DL (8.3-10.6); CREATININE FOR GFR 1.71 MG/DL (0.55-1.30); GLOMERULAR FILTRATION RATE 31.1 (>39); POTASSIUM SERUM 4.7 MMOL/L (3.5-5.1)
== END ==
PROVIDERS: ATTEND Internal Medicine
DX: E87.0 Hyperosmolality and hypernatremia (principal)

== ENCOUNTER → 2022-03-23 | Outpatient (REF) | payer MEDICARE, MEDICAID ==
[2022-03-23 11:02] LABS: POTASSIUM SERUM 5.3 MMOL/L (3.5-5.1)
[2022-03-23 11:09] LABS: CALCIUM LEVEL 8.5 MG/DL (8.3-10.6)
[2022-03-23 11:11] LABS: CREATININE FOR GFR 1.47 MG/DL (0.55-1.30)
== END ==
PROVIDERS: ATTEND Internal Medicine
DX: E86.0 Dehydration (principal)

== ENCOUNTER 2022-04-05 08:03 | Emergency (ER) | payer MEDICARE, MEDICAID ==
[~2022-04-05] VITALS: Ht 162.6 cm; Wt 90.0 kg
[2022-04-05] MEDS ORDERED: IPRATROPIUM 0.5MG/ALBUTEROL 2.5MG INH SOL UD 3ML (DUONEB) NEB ONE (08:10)
[2022-04-05] MEDS ORDERED: methylPREDNISolone 125MG 2ML VIAL IV ONE (08:10)
[2022-04-05] MEDS ORDERED: ALBUTEROL SULFATE 2.5 MG/0.5 ML INH NEB SOLN INH ONE (08:10)
[2022-04-05 08:45] LABS: BASO % 0.5 % (0.0-1.0); EOS # 0.2 10^3/uL (0.0-0.5); EOS % 2.3 % (0.0-3.0); HEMATOCRIT 29.3 % (36.0-47.0); HEMOGLOBIN 9.1 g/dl (12.0-15.5); LYMPH # 1.1 10^3/uL (1.5-5.0); LYMPH % 15.1 % (24.0-44.0); MEAN CORPUSCULAR HEMOGLOBIN 32.9 pg (27.0-33.0); MEAN CORPUSCULAR HGB CONC 31.1 g/dl (32.0-36.5); MEAN CORPUSCULAR VOLUME 105.8 fl (80.0-96.0); MONO # 0.7 10^3/uL (0.0-0.8); MONO % 9.5 % (2.0-8.0); NEUTROPHILS # 5.2 10^3/uL (1.5-8.5); NEUTROPHILS % 71.6 % (36.0-66.0); PLATELET COUNT, AUTOMATED 129 10^3/uL (150-450); RED BLOOD COUNT 2.77 10^6/uL (4.00-5.40); WHITE BLOOD COUNT 7.3 10^3/uL (4.0-10.0)
[2022-04-05 08:55] LABS: INR 1.15; PROTHROMBIN TIME 14.9 SECONDS (12.5-14.5)
[2022-04-05 08:56] LABS: PARTIAL THROMBOPLASTIN TIME 25.4 SECONDS (24.8-34.2)
[2022-04-05 09:08] LABS: BILIRUBIN,DIRECT 0.1 MG/DL (<0.4)
[2022-04-05 09:09] LABS: ALBUMIN 2.4 G/DL (3.2-5.2); BILIRUBIN,TOTAL 0.2 MG/DL (0.3-1.2); CALCIUM LEVEL 8.3 MG/DL (8.3-10.6); CREATININE FOR GFR 1.79 MG/DL (0.55-1.30); GLOMERULAR FILTRATION RATE 29.5 (>39); MB/CK RELATIVE INDEX 2.5 (< OR =4); TOTAL PROTEIN 4.9 G/DL (5.7-8.2)
[2022-04-05 09:10] LABS: FREE T4 1.08 NG/DL (0.89-1.76); THYROXINE (T4) 6.7 UG/DL (4.5-10.9)
[2022-04-05 09:11] LABS: THYROID STIMULATING HORMONE 0.922 uIU/ML (0.55-4.78)
[2022-04-05 09:17] LABS: RSV AMPLIFICATION NEGATIVE (NEGATIVE)
[2022-04-05 10:56] LABS: CK-MB VALUE MASS 1.1 NG/ML (<3.6)
[2022-04-05 11:05] LABS: MB/CK RELATIVE INDEX 2.89 (< OR =4)
[2022-04-05 12:01] LABS: CK-MB VALUE MASS 1.2 NG/ML (<3.6)
[2022-04-05 12:02] LABS: MB/CK RELATIVE INDEX 3.15 (< OR =4)
[2022-04-05] MEDS ORDERED: DOXYCYCLINE HYCLATE 100MG TABLET PO ONE (13:35)
[2022-04-05] MEDS ORDERED: DOXY-444 PO (13:38)
[2022-04-05 15:01] VITALS: BP 151/90
== END 2022-04-05 16:02 | disposition home or self-care (01) ==
LOC: EDBD 08:03 → M ED 08:03
DX: J20.9 Acute bronchitis, unspecified (principal); I51.7 Cardiomegaly; I27.20 Pulmonary hypertension, unspecified; R91.8 Other nonspecific abnormal finding of lung field; I48.91 Unspecified atrial fibrillation; I50.9 Heart failure, unspecified; I25.10 Atherosclerotic heart disease of native coronary artery without angina pectoris; E11.9 Type 2 diabetes mellitus without complications; I10 Essential (primary) hypertension; J44.9 Chronic obstructive pulmonary disease, unspecified; D50.9 Iron deficiency anemia, unspecified; N18.6 End stage renal disease; F32.9 Major depressive disorder, single episode, unspecified; Z87.440 Personal history of urinary (tract) infections; Z66 Do not resuscitate; Z79.82 Long term (current) use of aspirin; Z79.4 Long term (current) use of insulin; Z79.899 Other long term (current) drug therapy; Z91.011 Allergy to milk products; Z91.040 Latex allergy status
CPT/HCPCS: 36600; 71045; 71250; 80048; 80076; 82550; 82553; 82803; 83605; 83690; 83880; 84436; 84439; 84443; 84484; 85025; 85610; 85730; 87040; 87077; 87486; 87581; 87631; 87633; 87798; 93005; 93041; 94640; 94760; 96374; 99285; J2930

== ENCOUNTER → 2022-04-13 | Outpatient (REF) | payer MEDICARE, MEDICAID ==
[~2022-04-13] MED LIST changes: +DOXY-444 PO
== END ==
PROVIDERS: ATTEND Internal Medicine
DX: S60.011A Contusion of right thumb without damage to nail, initial encounter (principal)

== ENCOUNTER → 2022-04-13 | Outpatient (REF) | payer MEDICARE, MEDICAID ==
[2022-04-13 11:15] LABS: HEMATOCRIT 30.3 % (36.0-47.0); HEMOGLOBIN 9.4 g/dl (12.0-15.5); MEAN CORPUSCULAR HEMOGLOBIN 32.9 pg (27.0-33.0); MEAN CORPUSCULAR VOLUME 105.9 fl (80.0-96.0); PLATELET COUNT, AUTOMATED 129 10^3/uL (150-450); RED BLOOD COUNT 2.86 10^6/uL (4.00-5.40)
[2022-04-13 11:38] LABS: CALCIUM LEVEL 7.7 MG/DL (8.3-10.6); CREATININE FOR GFR 1.62 MG/DL (0.55-1.30); GLOMERULAR FILTRATION RATE 33.1 (>39); POTASSIUM SERUM 4.9 MMOL/L (3.5-5.1)
== END ==
PROVIDERS: ATTEND Internal Medicine
DX: N18.9 Chronic kidney disease, unspecified (principal)

== ENCOUNTER → 2022-04-15 | Outpatient (REF) | payer MEDICARE, MEDICAID ==
[2022-04-15 12:29] LABS: CALCIUM LEVEL 7.7 MG/DL (8.3-10.6); CREATININE FOR GFR 1.67 MG/DL (0.55-1.30); GLOMERULAR FILTRATION RATE 31.9 (>39)
[2022-04-15 18:57] LABS: INR 1.09; PROTHROMBIN TIME 14.3 SECONDS (12.5-14.5)
[2022-04-15 19:13] LABS: BILIRUBIN,DIRECT < 0.1 MG/DL (<0.4)
[2022-04-15 19:14] LABS: ALBUMIN 2.1 G/DL (3.2-5.2); ALKALINE PHOSPHATASE 54 U/L (46-116); ALT/SGPT 19 U/L (7.0-40); AST/SGOT 15 U/L (<34); BILIRUBIN,TOTAL 0.2 MG/DL (0.3-1.2); TOTAL PROTEIN 4.2 G/DL (5.7-8.2)
== END ==
PROVIDERS: ATTEND Physician Assistant
DX: E86.0 Dehydration (principal)

== ENCOUNTER → 2022-04-21 | Outpatient (REF) | payer MEDICARE, MEDICAID | PROVIDERS: ATTEND Internal Medicine | DX: R09.89 Other specified symptoms and signs involving the circulatory and respiratory systems (principal) ==

== ENCOUNTER → 2022-04-28 | Outpatient (REF) | payer MEDICARE, MEDICAID ==
[2022-04-28 14:09] LABS: HEPATITIS B SURFACE ANTIGEN NEGATIVE (NEGATIVE)
[2022-04-28 14:34] LABS: HIV SCREEN CENTAUR SOURCE NEGATIVE (NEGATIVE)
== END ==
PROVIDERS: ATTEND Internal Medicine
DX: Z11.4 Encounter for screening for human immunodeficiency virus [HIV] (principal); Z77.21 Contact with and (suspected) exposure to potentially hazardous body fluids

== ENCOUNTER → 2022-05-06 | Outpatient (REF) | payer MEDICARE, MEDICAID | PROVIDERS: ATTEND Internal Medicine | DX: I50.9 Heart failure, unspecified (principal) ==

== ENCOUNTER → 2022-05-11 | Outpatient (REF) | payer MEDICARE, MEDICAID ==
[2022-05-11 10:34] LABS: HEMATOCRIT 27.3 % (36.0-47.0); HEMOGLOBIN 8.1 g/dl (12.0-15.5); MEAN CORPUSCULAR HEMOGLOBIN 31.9 pg (27.0-33.0); MEAN CORPUSCULAR HGB CONC 29.7 g/dl (32.0-36.5); MEAN CORPUSCULAR VOLUME 107.5 fl (80.0-96.0); PLATELET COUNT, AUTOMATED 203 10^3/uL (150-450); RED BLOOD COUNT 2.54 10^6/uL (4.00-5.40); WHITE BLOOD COUNT 7.3 10^3/uL (4.0-10.0)
[2022-05-11 11:14] LABS: CALCIUM LEVEL 8.6 MG/DL (8.3-10.6); CREATININE FOR GFR 1.56 MG/DL (0.55-1.30); GLOMERULAR FILTRATION RATE 34.5 (>39); POTASSIUM SERUM 4.9 MMOL/L (3.5-5.1)
== END ==
PROVIDERS: ATTEND Internal Medicine
DX: N18.9 Chronic kidney disease, unspecified (principal)

== ENCOUNTER → 2022-05-18 | Outpatient (REF) | payer MEDICARE, MEDICAID ==
[~2022-05-18] MED LIST changes: -FLUO10TA2 PO; +FLUO1TAB PO; +INSU100I6 SC; -LEVE1INJ5 SC
[2022-05-18 12:33] LABS: HEMATOCRIT 27.4 % (36.0-47.0); HEMOGLOBIN 8.3 g/dl (12.0-15.5); MEAN CORPUSCULAR HGB CONC 30.3 g/dl (32.0-36.5); MEAN CORPUSCULAR VOLUME 105.8 fl (80.0-96.0); PLATELET COUNT, AUTOMATED 149 10^3/uL (150-450); RED BLOOD COUNT 2.59 10^6/uL (4.00-5.40); WHITE BLOOD COUNT 7.1 10^3/uL (4.0-10.0)
[2022-05-18 13:00] LABS: CALCIUM LEVEL 8.1 MG/DL (8.3-10.6); CREATININE FOR GFR 1.8 MG/DL (0.55-1.30); GLOMERULAR FILTRATION RATE 29.3 (>39); POTASSIUM SERUM 4.1 MMOL/L (3.5-5.1)
== END ==
PROVIDERS: ATTEND Internal Medicine
DX: I50.9 Heart failure, unspecified (principal); D50.9 Iron deficiency anemia, unspecified; N18.9 Chronic kidney disease, unspecified; D63.1 Anemia in chronic kidney disease

== ENCOUNTER → 2022-05-18 | Outpatient (REF) | payer MEDICARE, MEDICAID ==
[2022-05-18 12:59] LABS: PERCENT SATURATION 28.3 % (13.2-45.0)
[2022-05-18 13:01] LABS: FERRITIN 473.1 NG/ML (7.3-270.7)
== END ==
PROVIDERS: ATTEND Nurse Practitioner Family
DX: D50.9 Iron deficiency anemia, unspecified (principal); N18.9 Chronic kidney disease, unspecified; D63.1 Anemia in chronic kidney disease

== ENCOUNTER → 2022-05-20 | Outpatient (REF) | payer MEDICARE, MEDICAID ==
[~2022-05-20] MED LIST changes: +FLUO10TA2 PO; -FLUO1TAB PO; -INSU100I6 SC; +LEVE1INJ5 SC
[2022-05-20 10:27] LABS: CALCIUM LEVEL 8.3 MG/DL (8.3-10.6); CREATININE FOR GFR 1.63 MG/DL (0.55-1.30); GLOMERULAR FILTRATION RATE 32.8 (>39); POTASSIUM SERUM 4.5 MMOL/L (3.5-5.1)
== END ==
PROVIDERS: ATTEND Physician Assistant
DX: I50.9 Heart failure, unspecified (principal)

== ENCOUNTER → 2022-06-01 | Outpatient (REF) | payer MEDICARE, MEDICAID ==
[~2022-06-01] MED LIST changes: -FLUO10TA2 PO; +FLUO1TAB PO
[2022-06-01 15:37] LABS: HEMATOCRIT 27.9 % (36.0-47.0); HEMOGLOBIN 8.5 g/dl (12.0-15.5); MEAN CORPUSCULAR HEMOGLOBIN 32.1 pg (27.0-33.0); MEAN CORPUSCULAR HGB CONC 30.5 g/dl (32.0-36.5); MEAN CORPUSCULAR VOLUME 105.3 fl (80.0-96.0); PLATELET COUNT, AUTOMATED 127 10^3/uL (150-450); RED BLOOD COUNT 2.65 10^6/uL (4.00-5.40); WHITE BLOOD COUNT 6.7 10^3/uL (4.0-10.0)
[2022-06-01 16:04] LABS: CALCIUM LEVEL 7.8 MG/DL (8.3-10.6); CREATININE FOR GFR 1.68 MG/DL (0.55-1.30); GLOMERULAR FILTRATION RATE 31.7 (>39); POTASSIUM SERUM 4.5 MMOL/L (3.5-5.1)
== END ==
PROVIDERS: ATTEND Internal Medicine
DX: R41.82 Altered mental status, unspecified (principal)

== ENCOUNTER → 2022-06-05 | Outpatient (REF) | payer MEDICARE, MEDICAID ==
[~2022-06-05] MED LIST changes: +INSU100I6 SC; -LEVE1INJ5 SC
[2022-06-05 10:04] LABS: BASO % 0.6 % (0.0-1.0); EOS # 0.1 10^3/uL (0.0-0.5); EOS % 1.3 % (0.0-3.0); HEMATOCRIT 28.1 % (36.0-47.0); HEMOGLOBIN 8.9 g/dl (12.0-15.5); LYMPH # 1.3 10^3/uL (1.5-5.0); LYMPH % 18.8 % (24.0-44.0); MEAN CORPUSCULAR HEMOGLOBIN 32.6 pg (27.0-33.0); MEAN CORPUSCULAR HGB CONC 31.7 g/dl (32.0-36.5); MEAN CORPUSCULAR VOLUME 102.9 fl (80.0-96.0); MONO # 0.6 10^3/uL (0.0-0.8); MONO % 9.4 % (2.0-8.0); NEUTROPHILS # 4.6 10^3/uL (1.5-8.5); PLATELET COUNT, AUTOMATED 135 10^3/uL (150-450); RED BLOOD COUNT 2.73 10^6/uL (4.00-5.40); WHITE BLOOD COUNT 6.7 10^3/uL (4.0-10.0)
[2022-06-05 10:36] LABS: ALBUMIN 2.3 G/DL (3.2-5.2); CALCIUM LEVEL 8.1 MG/DL (8.3-10.6); CREATININE FOR GFR 1.59 MG/DL (0.55-1.30); GLOMERULAR FILTRATION RATE 33.8 (>39); MAGNESIUM LEVEL 1.9 MG/DL (1.8-2.4); PHOSPHORUS LEVEL 3.6 MG/DL (2.4-5.1); POTASSIUM SERUM 4.3 MMOL/L (3.5-5.1)
== END ==
PROVIDERS: ATTEND Internal Medicine
DX: N18.9 Chronic kidney disease, unspecified (principal); N39.0 Urinary tract infection, site not specified

== ENCOUNTER → 2022-06-05 | Outpatient (REF) | payer MEDICARE, MEDICAID | PROVIDERS: ATTEND Internal Medicine | DX: N39.0 Urinary tract infection, site not specified (principal) ==

== ENCOUNTER → 2022-06-08 | Outpatient (REF) | payer MEDICARE, MEDICAID ==
[~2022-06-08] MED LIST changes: -INSU100I6 SC; +LEVE1INJ5 SC
[2022-06-08 15:55] LABS: HEMATOCRIT 28.7 % (36.0-47.0); HEMOGLOBIN 8.6 g/dl (12.0-15.5); MEAN CORPUSCULAR HEMOGLOBIN 31.5 pg (27.0-33.0); MEAN CORPUSCULAR VOLUME 105.1 fl (80.0-96.0); PLATELET COUNT, AUTOMATED 136 10^3/uL (150-450); RED BLOOD COUNT 2.73 10^6/uL (4.00-5.40); WHITE BLOOD COUNT 7.2 10^3/uL (4.0-10.0)
[2022-06-08 16:24] LABS: CALCIUM LEVEL 8.3 MG/DL (8.3-10.6); CREATININE FOR GFR 1.57 MG/DL (0.55-1.30); GLOMERULAR FILTRATION RATE 34.3 (>39); POTASSIUM SERUM 5.1 MMOL/L (3.5-5.1)
== END ==
PROVIDERS: ATTEND Internal Medicine
DX: I50.9 Heart failure, unspecified (principal); N18.30 Chronic kidney disease, stage 3 unspecified; D64.9 Anemia, unspecified

== ENCOUNTER → 2022-06-15 | Outpatient (REF) | payer MEDICARE, MEDICAID ==
[~2022-06-15] MED LIST changes: +ARTIDRO4 OU; -ASPE16CR TOP; +INSU100I6 SC; -LEVE1INJ5 SC; +LIDO76.52 TOP; -POLYOPD OU; +POTA-298 PO; -POTA1TAB14 PO
[2022-06-15 10:24] LABS: TOTAL 25(OH) VITAMIN D 22.1 NG/ML (20.0-100.0)
[2022-06-15 10:27] LABS: ALBUMIN 2.1 G/DL (3.2-5.2); CALCIUM LEVEL 8.5 MG/DL (8.3-10.6); CREATININE FOR GFR 1.92 MG/DL (0.55-1.30); GLOMERULAR FILTRATION RATE 27.2 (>39); MAGNESIUM LEVEL 1.8 MG/DL (1.8-2.4); PHOSPHORUS LEVEL 4.1 MG/DL (2.4-5.1); POTASSIUM SERUM 3.9 MMOL/L (3.5-5.1)
[2022-06-15 10:28] LABS: PTH INTACT 60.4 PG/ML (18.5-88.0)
== END ==
PROVIDERS: ATTEND Internal Medicine
DX: N18.9 Chronic kidney disease, unspecified (principal); Z79.899 Other long term (current) drug therapy

== ENCOUNTER → 2022-06-15 | Outpatient (REF) | payer MEDICARE, MEDICAID ==
[~2022-06-15] MED LIST changes: -ARTIDRO4 OU; +ASPE16CR TOP; -INSU100I6 SC; +LEVE1INJ5 SC; -LIDO76.52 TOP; +POLYOPD OU; -POTA-298 PO; +POTA1TAB14 PO
== END ==
PROVIDERS: ATTEND Internal Medicine
DX: N18.9 Chronic kidney disease, unspecified (principal); Z53.8 Procedure and treatment not carried out for other reasons

== ENCOUNTER → 2022-07-06 | Outpatient (REF) | payer MEDICARE, MEDICAID ==
[~2022-07-06] MED LIST changes: +INSU100I6 SC; -LEVE1INJ5 SC
[2022-07-06 12:05] LABS: BASO # 0.1 10^3/uL (0.0-0.2); BASO % 0.8 % (0.0-1.0); EOS # 0.1 10^3/uL (0.0-0.5); HEMATOCRIT 31.7 % (36.0-47.0); HEMOGLOBIN 9.6 g/dl (12.0-15.5); LYMPH # 1.3 10^3/uL (1.5-5.0); LYMPH % 17.9 % (24.0-44.0); MEAN CORPUSCULAR HEMOGLOBIN 31.3 pg (27.0-33.0); MEAN CORPUSCULAR HGB CONC 30.3 g/dl (32.0-36.5); MEAN CORPUSCULAR VOLUME 103.3 fl (80.0-96.0); MONO # 0.7 10^3/uL (0.0-0.8); MONO % 10.2 % (2.0-8.0); PLATELET COUNT, AUTOMATED 174 10^3/uL (150-450); RED BLOOD COUNT 3.07 10^6/uL (4.00-5.40); WHITE BLOOD COUNT 7.2 10^3/uL (4.0-10.0)
[2022-07-06 12:28] LABS: TOTAL 25(OH) VITAMIN D 29.2 NG/ML (20.0-100.0)
[2022-07-06 12:31] LABS: ALBUMIN 2.2 G/DL (3.2-5.2); CALCIUM LEVEL 8.5 MG/DL (8.3-10.6); CREATININE FOR GFR 1.96 MG/DL (0.55-1.30); GLOMERULAR FILTRATION RATE 26.5 (>39); MAGNESIUM LEVEL 2.1 MG/DL (1.8-2.4); PHOSPHORUS LEVEL 3.9 MG/DL (2.4-5.1); POTASSIUM SERUM 4.8 MMOL/L (3.5-5.1); PTH INTACT 69.2 PG/ML (18.5-88.0)
== END ==
PROVIDERS: ATTEND Internal Medicine
DX: N18.9 Chronic kidney disease, unspecified (principal); I50.9 Heart failure, unspecified; Z79.899 Other long term (current) drug therapy

== ENCOUNTER → 2022-08-03 | Outpatient (REF) | payer MEDICARE, MEDICAID ==
[~2022-08-03] MED LIST changes: +ARTIDRO4 OU; -ASPE16CR TOP; +LIDO76.52 TOP; -POLYOPD OU
[2022-08-03 09:24] LABS: HEMATOCRIT 34.2 % (36.0-47.0); HEMOGLOBIN 10.7 g/dl (12.0-15.5); MEAN CORPUSCULAR HEMOGLOBIN 31.4 pg (27.0-33.0); MEAN CORPUSCULAR HGB CONC 31.3 g/dl (32.0-36.5); MEAN CORPUSCULAR VOLUME 100.3 fl (80.0-96.0); PLATELET COUNT, AUTOMATED 163 10^3/uL (150-450); RED BLOOD COUNT 3.41 10^6/uL (4.00-5.40); WHITE BLOOD COUNT 7.5 10^3/uL (4.0-10.0)
[2022-08-03 09:44] LABS: CALCIUM LEVEL 8.8 MG/DL (8.3-10.6); CREATININE FOR GFR 1.9 MG/DL (0.55-1.30); GLOMERULAR FILTRATION RATE 27.4 (>39); POTASSIUM SERUM 4.4 MMOL/L (3.5-5.1)
== END ==
PROVIDERS: ATTEND Internal Medicine
DX: N18.9 Chronic kidney disease, unspecified (principal); I50.9 Heart failure, unspecified

== ENCOUNTER → 2022-08-05 | Outpatient (REF) | payer MEDICARE, MEDICAID ==
[2022-08-05 09:51] LABS: CALCIUM LEVEL 8.7 MG/DL (8.3-10.6); CREATININE FOR GFR 2.02 MG/DL (0.55-1.30); GLOMERULAR FILTRATION RATE 25.6 (>39); POTASSIUM SERUM 4.7 MMOL/L (3.5-5.1)
== END ==
PROVIDERS: ATTEND Internal Medicine
DX: E86.0 Dehydration (principal)

== ENCOUNTER → 2022-08-06 | Outpatient (REF) | payer MEDICARE, MEDICAID ==
[2022-08-06 12:24] LABS: CALCIUM LEVEL 8.2 MG/DL (8.3-10.6); CREATININE FOR GFR 1.79 MG/DL (0.55-1.30); GLOMERULAR FILTRATION RATE 29.4 (>39); POTASSIUM SERUM 5.1 MMOL/L (3.5-5.1)
== END ==
PROVIDERS: ATTEND Internal Medicine
DX: E86.0 Dehydration (principal)

== ENCOUNTER → 2022-08-31 | Outpatient (REF) | payer MEDICARE, MEDICAID ==
[~2022-08-31] MED LIST changes: +POTA-298 PO; -POTA1TAB14 PO
[2022-08-31 15:44] LABS: HEMOGLOBIN 9.3 g/dl (12.0-15.5); MEAN CORPUSCULAR HEMOGLOBIN 31.6 pg (27.0-33.0); PLATELET COUNT, AUTOMATED 160 10^3/uL (150-450); RED BLOOD COUNT 2.94 10^6/uL (4.00-5.40); WHITE BLOOD COUNT 7.2 10^3/uL (4.0-10.0)
== END ==
PROVIDERS: ATTEND Internal Medicine
DX: I50.9 Heart failure, unspecified (principal)

== ENCOUNTER → 2022-09-07 | Outpatient (REF) | payer MEDICARE, MEDICAID ==
[2022-09-07 10:41] LABS: HEMATOCRIT 28.4 % (36.0-47.0); HEMOGLOBIN 8.8 g/dl (12.0-15.5); MEAN CORPUSCULAR HEMOGLOBIN 31.3 pg (27.0-33.0); MEAN CORPUSCULAR VOLUME 101.1 fl (80.0-96.0); PLATELET COUNT, AUTOMATED 160 10^3/uL (150-450); RED BLOOD COUNT 2.81 10^6/uL (4.00-5.40); WHITE BLOOD COUNT 6.9 10^3/uL (4.0-10.0)
[2022-09-07 11:13] LABS: CALCIUM LEVEL 8.3 MG/DL (8.3-10.6); CREATININE FOR GFR 1.93 MG/DL (0.55-1.30); GLOMERULAR FILTRATION RATE 26.9 (>39); POTASSIUM SERUM 4.7 MMOL/L (3.5-5.1)
== END ==
PROVIDERS: ATTEND Internal Medicine
DX: N18.9 Chronic kidney disease, unspecified (principal)

== ENCOUNTER → 2022-09-28 | Outpatient (REF) | payer MEDICARE, MEDICAID ==
[2022-09-28 11:41] LABS: BASO # 0.1 10^3/uL (0.0-0.2); BASO % 0.7 % (0.0-1.0); EOS # 0.1 10^3/uL (0.0-0.5); HEMATOCRIT 28.4 % (36.0-47.0); HEMOGLOBIN 8.8 g/dl (12.0-15.5); LYMPH # 1.3 10^3/uL (1.5-5.0); LYMPH % 18.9 % (24.0-44.0); MEAN CORPUSCULAR HEMOGLOBIN 31.5 pg (27.0-33.0); MEAN CORPUSCULAR VOLUME 101.8 fl (80.0-96.0); MONO # 0.7 10^3/uL (0.0-0.8); MONO % 9.6 % (2.0-8.0); NEUTROPHILS # 4.8 10^3/uL (1.5-8.5); NEUTROPHILS % 68.5 % (36.0-66.0); PLATELET COUNT, AUTOMATED 158 10^3/uL (150-450); RED BLOOD COUNT 2.79 10^6/uL (4.00-5.40)
[2022-09-28 12:06] LABS: ALBUMIN 2.4 G/DL (3.2-5.2); CREATININE FOR GFR 2.34 MG/DL (0.55-1.30); GLOMERULAR FILTRATION RATE 21.6 (>39); PHOSPHORUS LEVEL 3.7 MG/DL (2.4-5.1); POTASSIUM SERUM 4.9 MMOL/L (3.5-5.1)
== END ==
PROVIDERS: ATTEND Internal Medicine
DX: N17.9 Acute kidney failure, unspecified (principal)

== ENCOUNTER → 2022-10-12 | Outpatient (REF) | payer MEDICARE, MEDICAID ==
[~2022-10-12] MED LIST changes: +CYAN-1 PO; -CYAN100050 PO
[2022-10-12 08:26] LABS: HEMATOCRIT 32.1 % (36.0-47.0); HEMOGLOBIN 9.9 g/dl (12.0-15.5); MEAN CORPUSCULAR HEMOGLOBIN 31.3 pg (27.0-33.0); MEAN CORPUSCULAR HGB CONC 30.8 g/dl (32.0-36.5); MEAN CORPUSCULAR VOLUME 101.6 fl (80.0-96.0); PLATELET COUNT, AUTOMATED 178 10^3/uL (150-450); RED BLOOD COUNT 3.16 10^6/uL (4.00-5.40)
[2022-10-12 09:04] LABS: CALCIUM LEVEL 8.7 MG/DL (8.3-10.6); CREATININE FOR GFR 1.83 MG/DL (0.55-1.30); GLOMERULAR FILTRATION RATE 28.6 (>39); POTASSIUM SERUM 4.9 MMOL/L (3.5-5.1)
== END ==
PROVIDERS: ATTEND Internal Medicine
DX: N18.9 Chronic kidney disease, unspecified (principal); I50.9 Heart failure, unspecified

== ENCOUNTER → 2022-10-14 | Outpatient (REF) | payer MEDICARE, MEDICAID ==
[2022-10-14 09:58] LABS: CREATININE FOR GFR 2.07 MG/DL (0.55-1.30); GLOMERULAR FILTRATION RATE 24.9 (>39); POTASSIUM SERUM 4.7 MMOL/L (3.5-5.1)
== END ==
PROVIDERS: ATTEND Internal Medicine
DX: E86.0 Dehydration (principal)

== ENCOUNTER → 2022-10-28 | Outpatient (REF) | payer MEDICARE, MEDICAID ==
[2022-10-28 08:37] LABS: HEMATOCRIT 28.1 % (36.0-47.0); HEMOGLOBIN 8.9 g/dl (12.0-15.5); MEAN CORPUSCULAR HEMOGLOBIN 31.7 pg (27.0-33.0); MEAN CORPUSCULAR HGB CONC 31.7 g/dl (32.0-36.5); PLATELET COUNT, AUTOMATED 164 10^3/uL (150-450); RED BLOOD COUNT 2.81 10^6/uL (4.00-5.40); WHITE BLOOD COUNT 5.8 10^3/uL (4.0-10.0)
[2022-10-28 09:08] LABS: CALCIUM LEVEL 8.4 MG/DL (8.3-10.6); CREATININE FOR GFR 1.89 MG/DL (0.55-1.30); GLOMERULAR FILTRATION RATE 27.6 (>39); POTASSIUM SERUM 4.6 MMOL/L (3.5-5.1)
== END ==
PROVIDERS: ATTEND Internal Medicine
DX: N18.9 Chronic kidney disease, unspecified (principal)

== ENCOUNTER → 2022-12-01 | Outpatient (REF) | payer MEDICARE, MEDICAID | PROVIDERS: ATTEND Internal Medicine | DX: N18.9 Chronic kidney disease, unspecified (principal); Z53.8 Procedure and treatment not carried out for other reasons ==

== ENCOUNTER → 2022-12-07 | Outpatient (REF) | payer MEDICARE, MEDICAID ==
[2022-12-07 08:21] LABS: HEMATOCRIT 31.7 % (36.0-47.0); HEMOGLOBIN 9.8 g/dl (12.0-15.5); MEAN CORPUSCULAR HEMOGLOBIN 30.9 pg (27.0-33.0); MEAN CORPUSCULAR HGB CONC 30.9 g/dl (32.0-36.5); PLATELET COUNT, AUTOMATED 177 10^3/uL (150-450); RED BLOOD COUNT 3.17 10^6/uL (4.00-5.40); WHITE BLOOD COUNT 7.2 10^3/uL (4.0-10.0)
[2022-12-07 08:48] LABS: ALBUMIN 2.3 G/DL (3.2-5.2); CALCIUM LEVEL 8.5 MG/DL (8.3-10.6); CREATININE FOR GFR 1.95 MG/DL (0.55-1.30); GLOMERULAR FILTRATION RATE 26.6 (>39); MAGNESIUM LEVEL 1.9 MG/DL (1.8-2.4); PHOSPHORUS LEVEL 4.6 MG/DL (2.4-5.1); POTASSIUM SERUM 4.2 MMOL/L (3.5-5.1); PTH INTACT 70.2 PG/ML (18.5-88.0)
== END ==
PROVIDERS: ATTEND Internal Medicine
DX: I50.9 Heart failure, unspecified (principal)

== ENCOUNTER → 2022-12-09 | Outpatient (REF) | payer MEDICARE, MEDICAID ==
[2022-12-09 09:38] LABS: CALCIUM LEVEL 8.2 MG/DL (8.3-10.6); CREATININE FOR GFR 2.2 MG/DL (0.55-1.30); GLOMERULAR FILTRATION RATE 23.2 (>39); POTASSIUM SERUM 4.1 MMOL/L (3.5-5.1)
== END ==
PROVIDERS: ATTEND Physician Assistant
DX: E86.0 Dehydration (principal)

== ENCOUNTER → 2022-12-14 | Outpatient (REF) | payer MEDICARE, MEDICAID | PROVIDERS: ATTEND Internal Medicine | DX: R05.9 Cough, unspecified (principal) ==

== ENCOUNTER → 2022-12-14 | Outpatient (REF) | payer MEDICARE, MEDICAID | PROVIDERS: ATTEND Internal Medicine | DX: R05.9 Cough, unspecified (principal); J98.11 Atelectasis ==

== ENCOUNTER → 2022-12-23 | Outpatient (REF) | payer MEDICARE, MEDICAID ==
[2022-12-23 09:22] LABS: HEMATOCRIT 28.9 % (36.0-47.0); HEMOGLOBIN 9.2 g/dl (12.0-15.5); MEAN CORPUSCULAR HEMOGLOBIN 31.2 pg (27.0-33.0); MEAN CORPUSCULAR HGB CONC 31.8 g/dl (32.0-36.5); PLATELET COUNT, AUTOMATED 147 10^3/uL (150-450); RED BLOOD COUNT 2.95 10^6/uL (4.00-5.40); WHITE BLOOD COUNT 7.2 10^3/uL (4.0-10.0)
== END ==
PROVIDERS: ATTEND Internal Medicine
DX: N18.9 Chronic kidney disease, unspecified (principal)

== ENCOUNTER → 2023-01-06 | Outpatient (REF) | payer MEDICARE, MEDICAID ==
[2023-01-06 11:05] LABS: BASO % 0.7 % (0.0-1.0); EOS # 0.1 10^3/uL (0.0-0.5); EOS % 2.3 % (0.0-3.0); HEMATOCRIT 29.7 % (36.0-47.0); HEMOGLOBIN 9.1 g/dl (12.0-15.5); LYMPH # 1.2 10^3/uL (1.5-5.0); LYMPH % 21.8 % (24.0-44.0); MEAN CORPUSCULAR HEMOGLOBIN 30.5 pg (27.0-33.0); MEAN CORPUSCULAR HGB CONC 30.6 g/dl (32.0-36.5); MEAN CORPUSCULAR VOLUME 99.7 fl (80.0-96.0); MONO # 0.6 10^3/uL (0.0-0.8); MONO % 11.4 % (2.0-8.0); NEUTROPHILS # 3.5 10^3/uL (1.5-8.5); NEUTROPHILS % 63.1 % (36.0-66.0); PLATELET COUNT, AUTOMATED 193 10^3/uL (150-450); RED BLOOD COUNT 2.98 10^6/uL (4.00-5.40); WHITE BLOOD COUNT 5.5 10^3/uL (4.0-10.0)
[2023-01-06 11:36] LABS: FERRITIN 413.7 NG/ML (7.3-270.7); PERCENT SATURATION 18.4 % (13.2-45.0)
== END ==
PROVIDERS: ATTEND Internal Medicine
DX: N18.9 Chronic kidney disease, unspecified (principal)

== ENCOUNTER → 2023-01-08 | Outpatient (REF) | payer MEDICARE, MEDICAID ==
[2023-01-08 10:33] LABS: ALBUMIN 2.3 G/DL (3.2-5.2); CALCIUM LEVEL 8.5 MG/DL (8.3-10.6); CREATININE FOR GFR 2.08 MG/DL (0.55-1.30); GLOMERULAR FILTRATION RATE 24.7 (>39); MAGNESIUM LEVEL 1.8 MG/DL (1.8-2.4); POTASSIUM SERUM 4.5 MMOL/L (3.5-5.1)
[2023-01-09 10:00] LABS: PTH INTACT 41.7 PG/ML (18.5-88.0)
[2023-01-09 19:14] LABS: URIC ACID 9.2 MG/DL (3.1-7.8)
== END ==
PROVIDERS: ATTEND Internal Medicine
DX: N18.9 Chronic kidney disease, unspecified (principal); I50.9 Heart failure, unspecified

== ENCOUNTER → 2023-01-25 | Outpatient (REF) | payer MEDICARE, MEDICAID ==
[2023-01-25 15:34] LABS: HEMATOCRIT 29.3 % (36.0-47.0); HEMOGLOBIN 8.7 g/dl (12.0-15.5); MEAN CORPUSCULAR HEMOGLOBIN 30.9 pg (27.0-33.0); MEAN CORPUSCULAR HGB CONC 29.7 g/dl (32.0-36.5); MEAN CORPUSCULAR VOLUME 103.9 fl (80.0-96.0); PLATELET COUNT, AUTOMATED 144 10^3/uL (150-450); RED BLOOD COUNT 2.82 10^6/uL (4.00-5.40); WHITE BLOOD COUNT 8.4 10^3/uL (4.0-10.0)
== END ==
PROVIDERS: ATTEND Internal Medicine
DX: D64.9 Anemia, unspecified (principal)

== ENCOUNTER → 2023-01-26 | Outpatient (REF) | payer MEDICARE, MEDICAID | PROVIDERS: ATTEND Internal Medicine | DX: R05.9 Cough, unspecified (principal) ==

== ENCOUNTER → 2023-01-28 | Outpatient (REF) | payer MEDICARE, MEDICAID ==
[2023-01-28 16:19] LABS: HEMATOCRIT 28.9 % (36.0-47.0); HEMOGLOBIN 8.8 g/dl (12.0-15.5); MEAN CORPUSCULAR HEMOGLOBIN 30.8 pg (27.0-33.0); MEAN CORPUSCULAR HGB CONC 30.4 g/dl (32.0-36.5); PLATELET COUNT, AUTOMATED 132 10^3/uL (150-450); RED BLOOD COUNT 2.86 10^6/uL (4.00-5.40)
[2023-01-28 16:35] LABS: CALCIUM LEVEL 7.4 MG/DL (8.3-10.6); CREATININE FOR GFR 1.72 MG/DL (0.55-1.30); GLOMERULAR FILTRATION RATE 30.8 (>39); POTASSIUM SERUM 5.8 MMOL/L (3.5-5.1)
== END ==
PROVIDERS: ATTEND Internal Medicine
DX: U07.1 COVID-19 (principal); Z79.899 Other long term (current) drug therapy

== ENCOUNTER → 2023-02-01 | Outpatient (REF) | payer MEDICARE, MEDICAID ==
[2023-02-01 11:00] LABS: HEMATOCRIT 31.2 % (36.0-47.0); HEMOGLOBIN 9.5 g/dl (12.0-15.5); MEAN CORPUSCULAR HEMOGLOBIN 30.4 pg (27.0-33.0); MEAN CORPUSCULAR HGB CONC 30.4 g/dl (32.0-36.5); PLATELET COUNT, AUTOMATED 185 10^3/uL (150-450); RED BLOOD COUNT 3.12 10^6/uL (4.00-5.40); WHITE BLOOD COUNT 10.4 10^3/uL (4.0-10.0)
[2023-02-01 11:36] LABS: CALCIUM LEVEL 7.9 MG/DL (8.3-10.6); CREATININE FOR GFR 1.83 MG/DL (0.55-1.30); GLOMERULAR FILTRATION RATE 28.6 (>39); POTASSIUM SERUM 5.6 MMOL/L (3.5-5.1)
== END ==
PROVIDERS: ATTEND Internal Medicine
DX: U07.1 COVID-19 (principal); Z79.899 Other long term (current) drug therapy

== ENCOUNTER → 2023-02-02 | Outpatient (REF) | payer MEDICARE, MEDICAID | PROVIDERS: ATTEND Physician Assistant | DX: I50.9 Heart failure, unspecified (principal) ==

== ENCOUNTER → 2023-02-03 | Outpatient (REF) | payer MEDICARE, MEDICAID ==
[2023-02-03 11:49] LABS: MAGNESIUM LEVEL 1.9 MG/DL (1.8-2.4); POTASSIUM SERUM 4.8 MMOL/L (3.5-5.1)
== END ==
PROVIDERS: ATTEND Internal Medicine
DX: E87.5 Hyperkalemia (principal)

== ENCOUNTER → 2023-02-08 | Outpatient (REF) | payer MEDICARE, MEDICAID ==
[2023-02-08 11:31] LABS: HEMATOCRIT 31.2 % (36.0-47.0); HEMOGLOBIN 9.5 g/dl (12.0-15.5); MEAN CORPUSCULAR HEMOGLOBIN 30.4 pg (27.0-33.0); MEAN CORPUSCULAR HGB CONC 30.4 g/dl (32.0-36.5); MEAN CORPUSCULAR VOLUME 99.7 fl (80.0-96.0); PLATELET COUNT, AUTOMATED 172 10^3/uL (150-450); RED BLOOD COUNT 3.13 10^6/uL (4.00-5.40); WHITE BLOOD COUNT 8.1 10^3/uL (4.0-10.0)
[2023-02-08 12:04] LABS: CALCIUM LEVEL 7.7 MG/DL (8.3-10.6); CREATININE FOR GFR 1.64 MG/DL (0.55-1.30); GLOMERULAR FILTRATION RATE 32.5 (>39); POTASSIUM SERUM 5.3 MMOL/L (3.5-5.1)
== END ==
PROVIDERS: ATTEND Internal Medicine
DX: U07.1 COVID-19 (principal); Z79.899 Other long term (current) drug therapy

== ENCOUNTER → 2023-02-12 | Outpatient (REF) | payer MEDICARE, MEDICAID ==
[2023-02-12 09:31] LABS: HEMATOCRIT 32.9 % (36.0-47.0); MEAN CORPUSCULAR HGB CONC 30.4 g/dl (32.0-36.5); MEAN CORPUSCULAR VOLUME 98.8 fl (80.0-96.0); PLATELET COUNT, AUTOMATED 190 10^3/uL (150-450); RED BLOOD COUNT 3.33 10^6/uL (4.00-5.40); WHITE BLOOD COUNT 11.6 10^3/uL (4.0-10.0)
[2023-02-13 12:01] LABS: CREATININE FOR GFR 1.5 MG/DL (0.7-1.5)
[2023-02-13 12:02] LABS: CALCIUM LEVEL 8.5 MG/DL (8.8-10.2)
== END ==
PROVIDERS: ATTEND Internal Medicine
DX: N18.9 Chronic kidney disease, unspecified (principal)

== ENCOUNTER → 2023-02-13 | Outpatient (REF) | payer MEDICARE, MEDICAID | PROVIDERS: ATTEND Internal Medicine | DX: R82.998 Other abnormal findings in urine (principal); Z53.8 Procedure and treatment not carried out for other reasons ==

== ENCOUNTER → 2023-02-17 | Outpatient (REF) | payer MEDICARE, MEDICAID ==
[2023-02-17 11:42] LABS: BASO # 0.1 10^3/uL (0.0-0.2); BASO % 0.8 % (0.0-1.0); EOS # 0.1 10^3/uL (0.0-0.5); EOS % 2.1 % (0.0-3.0); HEMATOCRIT 31.9 % (36.0-47.0); HEMOGLOBIN 9.7 g/dl (12.0-15.5); LYMPH # 1.4 10^3/uL (1.5-5.0); MEAN CORPUSCULAR HEMOGLOBIN 30.3 pg (27.0-33.0); MEAN CORPUSCULAR HGB CONC 30.4 g/dl (32.0-36.5); MEAN CORPUSCULAR VOLUME 99.7 fl (80.0-96.0); MONO # 0.6 10^3/uL (0.0-0.8); MONO % 10.3 % (2.0-8.0); NEUTROPHILS # 3.9 10^3/uL (1.5-8.5); NEUTROPHILS % 63.2 % (36.0-66.0); PLATELET COUNT, AUTOMATED 157 10^3/uL (150-450); WHITE BLOOD COUNT 6.2 10^3/uL (4.0-10.0)
== END ==
PROVIDERS: ATTEND Physician Assistant
DX: Z01.89 Encounter for other specified special examinations (principal); Z79.899 Other long term (current) drug therapy

== ENCOUNTER → 2023-03-09 | Outpatient (REF) | payer MEDICARE, MEDICAID ==
[2023-03-09 15:43] LABS: BASO % 0.4 % (0.0-1.0); EOS # 0.1 10^3/uL (0.0-0.5); EOS % 0.6 % (0.0-3.0); HEMOGLOBIN 9.9 g/dl (12.0-15.5); LYMPH # 0.9 10^3/uL (1.5-5.0); LYMPH % 10.4 % (24.0-44.0); MEAN CORPUSCULAR HEMOGLOBIN 30.6 pg (27.0-33.0); MEAN CORPUSCULAR HGB CONC 30.9 g/dl (32.0-36.5); MEAN CORPUSCULAR VOLUME 98.8 fl (80.0-96.0); MONO # 0.5 10^3/uL (0.0-0.8); MONO % 5.9 % (2.0-8.0); NEUTROPHILS # 6.8 10^3/uL (1.5-8.5); NEUTROPHILS % 82.1 % (36.0-66.0); PLATELET COUNT, AUTOMATED 174 10^3/uL (150-450); RED BLOOD COUNT 3.24 10^6/uL (4.00-5.40); WHITE BLOOD COUNT 8.3 10^3/uL (4.0-10.0)
[2023-03-09 16:15] LABS: URIC ACID 7.3 MG/DL (3.1-7.8)
[2023-03-09 16:17] LABS: ALBUMIN 2.3 G/DL (3.2-5.2); CALCIUM LEVEL 8.2 MG/DL (8.3-10.6); CREATININE FOR GFR 1.64 MG/DL (0.55-1.30); GLOMERULAR FILTRATION RATE 32.5 (>39); PHOSPHORUS LEVEL 4.6 MG/DL (2.4-5.1); POTASSIUM SERUM 5.2 MMOL/L (3.5-5.1); PTH INTACT 96.1 PG/ML (18.5-88.0)
== END ==
PROVIDERS: ATTEND Internal Medicine
DX: N18.9 Chronic kidney disease, unspecified (principal)

== ENCOUNTER → 2023-03-17 | Outpatient (REF) | payer MEDICARE, MEDICAID ==
[~2023-03-17] MED LIST changes: +ALBU8.5H INH; +BREO1INH3 INH; +CALC200T3 PO; +CENT1TAB7 PO; +DIVA1TAB48 PO; +EMOL454C2 TP; +HYDR12CA PO; +SILV50CR TOP; +SODI650T PO; +[UNRECOGNIZED DRUG - CODE] SC; +[UNRECOGNIZED DRUG - CODE] TOP; +[UNRECOGNIZED DRUG - OTHER] TOP
[2023-03-17 10:11] LABS: HEMATOCRIT 32.1 % (36.0-47.0); HEMOGLOBIN 10.2 g/dl (12.0-15.5); MEAN CORPUSCULAR HEMOGLOBIN 30.8 pg (27.0-33.0); MEAN CORPUSCULAR HGB CONC 31.8 g/dl (32.0-36.5); PLATELET COUNT, AUTOMATED 166 10^3/uL (150-450); RED BLOOD COUNT 3.31 10^6/uL (4.00-5.40); WHITE BLOOD COUNT 7.7 10^3/uL (4.0-10.0)
[2023-03-17 10:27] LABS: CALCIUM LEVEL 8.5 MG/DL (8.3-10.6); CREATININE FOR GFR 1.46 MG/DL (0.55-1.30); GLOMERULAR FILTRATION RATE 37.2 (>39); POTASSIUM SERUM 5.9 MMOL/L (3.5-5.1)
== END ==
PROVIDERS: ATTEND Internal Medicine
DX: N18.9 Chronic kidney disease, unspecified (principal); I50.9 Heart failure, unspecified

== ENCOUNTER 2023-03-19 10:50 | Inpatient (IN) | payer MEDICARE, MEDICAID ==
[~2023-03-19] VITALS: Ht 144.8 cm; Wt 82.2 kg
[~2023-03-19 10:50] MED LIST changes: -ALBU8.5H INH; -BREO1INH3 INH; -CALC200T3 PO; -CENT1TAB7 PO; -DIVA1TAB48 PO; -EMOL454C2 TP; -HYDR12CA PO; -SILV50CR TOP; -SODI650T PO; -[UNRECOGNIZED DRUG - CODE] SC; -[UNRECOGNIZED DRUG - CODE] TOP; -[UNRECOGNIZED DRUG - OTHER] TOP
[2023-03-19 11:34] LABS: HEMATOCRIT 32.2 % (36.0-47.0); HEMOGLOBIN 10.2 g/dl (12.0-15.5); MEAN CORPUSCULAR HEMOGLOBIN 31.1 pg (27.0-33.0); MEAN CORPUSCULAR HGB CONC 31.7 g/dl (32.0-36.5); MEAN CORPUSCULAR VOLUME 98.2 fl (80.0-96.0); PLATELET COUNT, AUTOMATED 159 10^3/uL (150-450); RED BLOOD COUNT 3.28 10^6/uL (4.00-5.40)
[2023-03-19 13:02] LABS: VALPROIC ACID (DEPAKOTE) 8.3 UG/ML (50.0-100.0)
[2023-03-19 13:05] LABS: CALCIUM LEVEL 7.9 MG/DL (8.3-10.6); CREATININE FOR GFR 1.63 MG/DL (0.55-1.30); GLOMERULAR FILTRATION RATE 32.7 (>39); POTASSIUM SERUM 6.2 MMOL/L (3.5-5.1)
[2023-03-19] MEDS ORDERED: SODIUM BICARBONATE 8.4% INJ 50ML SYRINGE IV ONE (13:10)
[2023-03-19] MEDS ORDERED: DEXTROSE 50% 50ML SYRINGE IV ONE (13:10)
[2023-03-19] MEDS ORDERED: PATIROMER SORBITEX CALCIUM 8.4 GM POWDER PACKET (VELTASSA) PO ONE ×3 (13:10→21:50)
[2023-03-19] MEDS ORDERED: CALCIUM CHLORIDE 10% 1 GM/10 ML SYR IV ONE (13:10)
[2023-03-19] MEDS ORDERED: HumuLIN R (REGULAR) INSULIN (NovoLIN R) **100U/ML** PER UNIT IV ONE (13:10)
[2023-03-19] MEDS ORDERED: MED REC IN PROGRESS XX SCH (13:30)
[2023-03-19] MEDS ORDERED: FUROSEMIDE 20MG/2ML VIAL IV ONE ×2 (14:25→16:50)
[2023-03-19] MEDS ORDERED: BREO1INH3 INH (15:35)
[2023-03-19] MEDS ORDERED: CALC200T3 PO (15:40)
[2023-03-19] MEDS ORDERED: CENT1TAB7 PO (15:44)
[2023-03-19] MEDS ORDERED: [UNRECOGNIZED DRUG - OTHER] TOP (16:01)
[2023-03-19] MEDS ORDERED: MIRA3350 PO (16:07)
[2023-03-19] MEDS ORDERED: PRED10TA2 PO (16:13)
[2023-03-19] MEDS ORDERED: [UNRECOGNIZED DRUG - CODE] SC (16:13)
[2023-03-19] MEDS ORDERED: [UNRECOGNIZED DRUG - CODE] TOP (16:21)
[2023-03-19] MEDS ORDERED: DIVA1TAB48 PO (16:23)
[2023-03-19] MEDS ORDERED: SILV50CR TOP (16:27)
[2023-03-19] MEDS ORDERED: ACET-907 PO (16:29)
[2023-03-19] MEDS ORDERED: GLUCAGON INJ 1MG VIAL SC PRN (16:45)
[2023-03-19] MEDS ORDERED: GLUCOSE 4GM CHEW TABLET PO PRN (16:45)
[2023-03-19] MEDS ORDERED: DEXTROSE 50% 50ML SYRINGE IV PRN (16:45)
[2023-03-19] MEDS ORDERED: SODIUM BICARBONATE 8.4% INJ 50ML SYRINGE IV STA (16:47)
[2023-03-19] MEDS ORDERED: ALBUTEROL SULFATE 2.5MG/0.5ML INH NEB SOLN NEB STA (16:47)
[2023-03-19] MEDS ORDERED: CALCIUM GLUCONATE 1,000 MG in D5W MINI-BAG PLUS 100 ML IV ONE (16:50)
[2023-03-19] MEDS ORDERED: DOCUSATE SODIUM 100MG CAPSULE PO PRN (16:55)
[2023-03-19] MEDS ORDERED: MIRALAX *UNIT DOSE* 17GM PACKET PO PRN (16:55)
[2023-03-19] MEDS ORDERED: HOME MED LIST COMPLETE! XX SCH (16:55)
[2023-03-19] MEDS ORDERED: BISACODYL 10MG SUPP PR PRN (16:55)
[2023-03-19 17:17] VITALS: O2SAT 100
[2023-03-19] MEDS ORDERED: IPRATROPIUM 0.5MG/ALBUTEROL 2.5MG INH SOL UD 3ML (DUONEB) NEB PRN (17:45)
[2023-03-19] MEDS: INSULIN LISPRO (NovoLOG) PER UNIT SC SCH ×2 (18:51→21:00)
[2023-03-19 20:46] VITALS: BP 192/72; TEMP 98.1; O2SAT 95
[2023-03-19] MEDS: MEGESTROL 400MG 10ML SUSP ORAL SYRINGE *DRAW UP EXACT DOSE PO SCH (21:58)
[2023-03-19] MEDS: DIVALPROEX 125 MG TAB PO SCH (21:58)
[2023-03-19] MEDS: ISOSORBIDE DIN. (ISORDIL) 20 MG TAB PO SCH (21:58)
[2023-03-19] MEDS: ATORVASTATIN 20 MG TAB PO SCH (21:58)
[2023-03-19] MEDS: CARVedilol 6.25 MG TAB PO SCH (21:58)
[2023-03-19] MEDS: SILVER SULFADIAZINE 1% CR 50 GM JAR TOP SCH (21:59)
[2023-03-19] MEDS: DOCUSATE SODIUM 100MG CAPSULE PO SCH (21:59)
[2023-03-19] MEDS ORDERED: DEXTROSE 50% 50ML SYRINGE IV STA (22:01)
[2023-03-19] MEDS ORDERED: HumuLIN R (REGULAR) INSULIN (NovoLIN R) **100U/ML** PER UNIT IV STA (22:01)
[2023-03-19] MEDS: SODIUM BICARBONATE 150 MEQ in STERILE WATER LITER BAG 1,000 ML IV SCH (22:29)
[2023-03-20 00:02] VITALS: BP 128/58; TEMP 98.6; O2SAT 97
[2023-03-20 01:50] LABS: APPEARANCE, URINE CLOUDY (CLEAR); BACTERIA, URINE AUTO 3+ (NEGATIVE); BILIRUBIN, URINE AUTO NEGATIVE (NEGATIVE); BLOOD, URINE BLOOD NEGATIVE (NEGATIVE); COLOR, URINE YELLOW (YELLOW); GLUCOSE, URINE (UA) AUTO NEGATIVE (NEGATIVE); KETONE, URINE AUTO NEGATIVE (NEGATIVE); LEUKOCYTE ESTERASE, URINE AUTO 3+ (NEGATIVE); MUCUS, URINE SMALL (NEGATIVE); NITRITE, URINE AUTO NEGATIVE (NEGATIVE); PROTEIN, URINE AUTO 2+ mg/dL (NEGATIVE); RBC, URINE AUTO 4 /HPF (0-3); SPECIFIC GRAVITY URINE AUTO 1.009 (1.002-1.035); SQUAMOUS EPITHELIAL CELL UR AU 0 /HPF (0-6); TRANSITIONAL EPITHELIAL AUTO 1 /HPF; UROBILINOGEN, URINE AUTO 0.2 mg/dL (0.0-2.0); WBC, URINE AUTO TNTC /HPF (0-3)
[2023-03-20 03:37] VITALS: BP 113/62
[2023-03-20 05:56] LABS: BASO % 0.3 % (0.0-1.0); EOS % 0.1 % (0.0-3.0); HEMATOCRIT 28.9 % (36.0-47.0); HEMOGLOBIN 9.2 g/dl (12.0-15.5); LYMPH # 1.6 10^3/uL (1.5-5.0); LYMPH % 21.2 % (24.0-44.0); MEAN CORPUSCULAR HEMOGLOBIN 31.4 pg (27.0-33.0); MEAN CORPUSCULAR HGB CONC 31.8 g/dl (32.0-36.5); MEAN CORPUSCULAR VOLUME 98.6 fl (80.0-96.0); MONO # 0.6 10^3/uL (0.0-0.8); MONO % 7.8 % (2.0-8.0); NEUTROPHILS # 5.1 10^3/uL (1.5-8.5); NEUTROPHILS % 70.1 % (36.0-66.0); PLATELET COUNT, AUTOMATED 147 10^3/uL (150-450); RED BLOOD COUNT 2.93 10^6/uL (4.00-5.40); WHITE BLOOD COUNT 7.3 10^3/uL (4.0-10.0)
[2023-03-20 06:19] LABS: ALBUMIN 2.3 G/DL (3.2-5.2); CALCIUM LEVEL 8.9 MG/DL (8.3-10.6); CREATININE FOR GFR 1.6 MG/DL (0.55-1.30); GLOMERULAR FILTRATION RATE 33.5 (>39); MAGNESIUM LEVEL 1.8 MG/DL (1.8-2.4); PHOSPHORUS LEVEL 3.5 MG/DL (2.4-5.1); POTASSIUM SERUM 5.5 MMOL/L (3.5-5.1)
[2023-03-20] MEDS: HEPARIN SOD (PORCINE) 5000UNITS/ML 1ML VIAL/SYRINGE SC SCH ×2 (06:19→17:54)
[2023-03-20 07:59] VITALS: BP 122/67; TEMP 97.3; O2SAT 95
[2023-03-20] MEDS: MEGESTROL 400MG 10ML SUSP ORAL SYRINGE *DRAW UP EXACT DOSE PO SCH ×2 (08:15→21:44)
[2023-03-20] MEDS: FERROUS SULFATE 325MG TAB PO SCH (08:16)
[2023-03-20] MEDS: INSULIN LISPRO (NovoLOG) PER UNIT SC SCH ×5 (08:16→21:00)
[2023-03-20] MEDS: FLUoxetine 20MG CAP PO SCH (08:16)
[2023-03-20] MEDS: DIVALPROEX 125 MG TAB PO SCH ×2 (08:16→21:42)
[2023-03-20] MEDS: LACTOBACILLUS ACIDOPHILUS CAP (BACID) PO SCH (08:16)
[2023-03-20] MEDS: ASPIRIN 81MG ENTERIC TABLET PO SCH (08:16)
[2023-03-20] MEDS: predniSONE 10MG TAB PO SCH (08:16)
[2023-03-20] MEDS: CLOPIDOGREL 75 MG TAB PO SCH (08:16)
[2023-03-20] MEDS: amLODIPine 5 MG TAB PO SCH (08:18)
[2023-03-20] MEDS: CARVedilol 6.25 MG TAB PO SCH ×2 (08:18→21:00)
[2023-03-20] MEDS: SILVER SULFADIAZINE 1% CR 50 GM JAR TOP SCH ×2 (08:20→21:42)
[2023-03-20] MEDS: ISOSORBIDE DIN. (ISORDIL) 20 MG TAB PO SCH ×2 (08:22→21:43)
[2023-03-20] MEDS ORDERED: EMOL454C2 TP (10:15)
[2023-03-20] MEDS: SODIUM BICARBONATE 150 MEQ in STERILE WATER LITER BAG 1,000 ML IV SCH (10:17)
[2023-03-20] MEDS: SODIUM BICARBONATE 325 MG TAB PO SCH ×2 (10:26→21:43)
[2023-03-20] MEDS: hydroCHLOROthiazide 12.5 MG CAPSULE PO SCH (10:26)
[2023-03-20 11:35] VITALS: BP 131/55; TEMP 97.9; O2SAT 98
[2023-03-20 15:59] VITALS: BP 114/55; TEMP 97.7; O2SAT 98
[2023-03-20] MEDS ORDERED: PATIROMER SORBITEX CALCIUM 8.4 GM POWDER PACKET (VELTASSA) PO SCH (18:00)
[2023-03-20 20:00] VITALS: BP 144/65; TEMP 97.4; O2SAT 96
[2023-03-20] MEDS: ATORVASTATIN 20 MG TAB PO SCH (21:43)
[2023-03-20] MEDS: DOCUSATE SODIUM 100MG CAPSULE PO SCH (21:43)
[2023-03-20] MEDS: LEVEMIR (INSULIN DETEMIR) 1 UNITS/0.01ML SC SCH (21:44)
[2023-03-21] VITALS: BP 118/54; TEMP 97.5; O2SAT 98
[2023-03-21 04:00] VITALS: BP 150/64; TEMP 97.9; O2SAT 96
[2023-03-21] MEDS: HEPARIN SOD (PORCINE) 5000UNITS/ML 1ML VIAL/SYRINGE SC SCH ×2 (06:10→17:30)
[2023-03-21 06:19] LABS: BASO % 0.3 % (0.0-1.0); HEMATOCRIT 29.7 % (36.0-47.0); HEMOGLOBIN 9.5 g/dl (12.0-15.5); LYMPH # 1.6 10^3/uL (1.5-5.0); LYMPH % 22.8 % (24.0-44.0); MEAN CORPUSCULAR HEMOGLOBIN 30.7 pg (27.0-33.0); MEAN CORPUSCULAR VOLUME 96.1 fl (80.0-96.0); MONO # 0.6 10^3/uL (0.0-0.8); MONO % 8.1 % (2.0-8.0); NEUTROPHILS # 4.8 10^3/uL (1.5-8.5); NEUTROPHILS % 67.9 % (36.0-66.0); PLATELET COUNT, AUTOMATED 134 10^3/uL (150-450); RED BLOOD COUNT 3.09 10^6/uL (4.00-5.40); WHITE BLOOD COUNT 7.1 10^3/uL (4.0-10.0)
[2023-03-21 06:49] LABS: ALBUMIN 2.2 G/DL (3.2-5.2); CALCIUM LEVEL 8.9 MG/DL (8.3-10.6); CREATININE FOR GFR 1.83 MG/DL (0.55-1.30); GLOMERULAR FILTRATION RATE 28.6 (>39); MAGNESIUM LEVEL 1.8 MG/DL (1.8-2.4); PHOSPHORUS LEVEL 3.3 MG/DL (2.4-5.1); POTASSIUM SERUM 4.4 MMOL/L (3.5-5.1)
[2023-03-21 07:37] VITALS: BP 147/64; TEMP 97.4; O2SAT 94
[2023-03-21] MEDS: CARVedilol 6.25 MG TAB PO SCH ×2 (09:00→20:54)
[2023-03-21] MEDS: MEGESTROL 400MG 10ML SUSP ORAL SYRINGE *DRAW UP EXACT DOSE PO SCH ×2 (09:49→20:56)
[2023-03-21] MEDS: predniSONE 10MG TAB PO SCH (09:50)
[2023-03-21] MEDS: LACTOBACILLUS ACIDOPHILUS CAP (BACID) PO SCH (09:50)
[2023-03-21] MEDS: FERROUS SULFATE 325MG TAB PO SCH (09:50)
[2023-03-21] MEDS: SODIUM BICARBONATE 325 MG TAB PO SCH ×2 (09:50→20:54)
[2023-03-21] MEDS: INSULIN LISPRO (NovoLOG) PER UNIT SC SCH ×4 (09:50→20:55)
[2023-03-21] MEDS: ASPIRIN 81MG ENTERIC TABLET PO SCH (09:50)
[2023-03-21] MEDS: CLOPIDOGREL 75 MG TAB PO SCH (09:50)
[2023-03-21] MEDS: hydroCHLOROthiazide 12.5 MG CAPSULE PO SCH (09:51)
[2023-03-21] MEDS: DIVALPROEX 125 MG TAB PO SCH ×2 (09:51→20:54)
[2023-03-21] MEDS: TORSEMIDE 10 MG TABLET PO SCH (09:51)
[2023-03-21] MEDS: FLUoxetine 20MG CAP PO SCH (09:51)
[2023-03-21] MEDS: ISOSORBIDE DIN. (ISORDIL) 20 MG TAB PO SCH ×2 (09:54→20:54)
[2023-03-21] MEDS: amLODIPine 5 MG TAB PO SCH (09:55)
[2023-03-21] MEDS: SILVER SULFADIAZINE 1% CR 50 GM JAR TOP SCH ×2 (09:56→21:00)
[2023-03-21 12:10] VITALS: BP 106/53; TEMP 96.7; O2SAT 94
[2023-03-21 13:52] VITALS: BP 105/62; TEMP 97.5; O2SAT 92
[2023-03-21] MEDS: DOCUSATE SODIUM 100MG CAPSULE PO SCH (19:44)
[2023-03-21 20:00] VITALS: BP 123/73; TEMP 98.6; O2SAT 93
[2023-03-21] MEDS: ATORVASTATIN 20 MG TAB PO SCH (20:54)
[2023-03-21] MEDS: LEVEMIR (INSULIN DETEMIR) 1 UNITS/0.01ML SC SCH (20:55)
[2023-03-22 06:00] VITALS: BP 159/79; TEMP 97.5; O2SAT 95
[2023-03-22] MEDS: HEPARIN SOD (PORCINE) 5000UNITS/ML 1ML VIAL/SYRINGE SC SCH (06:21)
[2023-03-22] MEDS: FLUoxetine 20MG CAP PO SCH (08:15)
[2023-03-22] MEDS: LACTOBACILLUS ACIDOPHILUS CAP (BACID) PO SCH (08:15)
[2023-03-22] MEDS: INSULIN LISPRO (NovoLOG) PER UNIT SC SCH ×2 (08:15→12:46)
[2023-03-22] MEDS: SODIUM BICARBONATE 325 MG TAB PO SCH (08:15)
[2023-03-22] MEDS: DIVALPROEX 125 MG TAB PO SCH (08:15)
[2023-03-22] MEDS: FERROUS SULFATE 325MG TAB PO SCH (08:15)
[2023-03-22 08:16] VITALS: BP 155/84
[2023-03-22] MEDS: TORSEMIDE 10 MG TABLET PO SCH (08:16)
[2023-03-22] MEDS: ISOSORBIDE DIN. (ISORDIL) 20 MG TAB PO SCH (08:16)
[2023-03-22] MEDS: predniSONE 10MG TAB PO SCH (08:16)
[2023-03-22] MEDS: hydroCHLOROthiazide 12.5 MG CAPSULE PO SCH (08:16)
[2023-03-22] MEDS: ASPIRIN 81MG ENTERIC TABLET PO SCH (08:16)
[2023-03-22] MEDS: CLOPIDOGREL 75 MG TAB PO SCH (08:16)
[2023-03-22] MEDS: CARVedilol 6.25 MG TAB PO SCH (08:17)
[2023-03-22] MEDS: amLODIPine 5 MG TAB PO SCH (08:17)
[2023-03-22] MEDS: SILVER SULFADIAZINE 1% CR 50 GM JAR TOP SCH (08:21)
[2023-03-22] MEDS ORDERED: DIMETHICONE 2% OINTMENT(VANICREAM) 70GM TUBE TOP SCH (09:00)
[2023-03-22] MEDS ORDERED: CALCITRIOL 0.25 MCG CAP (S0169) PO SCH (09:00)
[2023-03-22] MEDS ORDERED: CEFDINIR 300 MG CAP (OMNICEF) PO SCH ×3 (09:00→09:46)
[2023-03-22 09:49] LABS: CALCIUM LEVEL 8.4 MG/DL (8.3-10.6); CREATININE FOR GFR 2.18 MG/DL (0.55-1.30); GLOMERULAR FILTRATION RATE 23.4 (>39)
[2023-03-22] MEDS: MEGESTROL 400MG 10ML SUSP ORAL SYRINGE *DRAW UP EXACT DOSE PO SCH (10:12)
[2023-03-22] MEDS ORDERED: TORS10TA3 PO (10:38)
[2023-03-22] MEDS ORDERED: HYDR12CA PO (10:38)
[2023-03-22] MEDS ORDERED: CEFD300CAP PO (10:38)
[2023-03-22] MEDS ORDERED: SODI650T PO (10:38)
[2023-03-22] MEDS ORDERED: ALBU8.5H INH (10:38)
== END 2023-03-22 13:45 | DRG 641 ==
LOC: M ED 10:50 → M ED INP 17:10 → ENRESERV 19:38 → M PCU 20:18 → M MSPAV 03-21 13:47
PROVIDERS: ADMIT Internal Medicine; ATTEND Internal Medicine
DX: E87.5 Hyperkalemia (principal); I13.0 Hypertensive heart and chronic kidney disease with heart failure and stage 1 through stage 4 chronic kidney disease, or unspecified chronic kidney disease; N39.0 Urinary tract infection, site not specified; A52.16 Charcot's arthropathy (tabetic); N25.81 Secondary hyperparathyroidism of renal origin; I50.32 Chronic diastolic (congestive) heart failure; N18.4 Chronic kidney disease, stage 4 (severe); E87.20 Acidosis, unspecified; F03.90 Unspecified dementia, unspecified severity, without behavioral disturbance, psychotic disturbance, mood disturbance, and anxiety; J44.9 Chronic obstructive pulmonary disease, unspecified; E11.51 Type 2 diabetes mellitus with diabetic peripheral angiopathy without gangrene; E11.42 Type 2 diabetes mellitus with diabetic polyneuropathy; B96.20 Unspecified Escherichia coli [E. coli] as the cause of diseases classified elsewhere; E11.22 Type 2 diabetes mellitus with diabetic chronic kidney disease; D63.1 Anemia in chronic kidney disease; Z91.119 Patient's noncompliance with dietary regimen due to unspecified reason; I48.0 Paroxysmal atrial fibrillation; Z79.4 Long term (current) use of insulin; D50.9 Iron deficiency anemia, unspecified; Z91.040 Latex allergy status; Z91.011 Allergy to milk products; Z79.82 Long term (current) use of aspirin; Z79.899 Other long term (current) drug therapy; E78.5 Hyperlipidemia, unspecified; F31.9 Bipolar disorder, unspecified; E66.9 Obesity, unspecified; K59.00 Constipation, unspecified; Z87.891 Personal history of nicotine dependence; Z79.52 Long term (current) use of systemic steroids; Z68.39 Body mass index [BMI] 39.0-39.9, adult; Z66 Do not resuscitate; Z89.422 Acquired absence of other left toe(s); Z96.641 Presence of right artificial hip joint

== ENCOUNTER → 2023-03-19 | Outpatient (REF) | payer MEDICARE, MEDICAID ==
[2023-03-19 08:15] LABS: CALCIUM LEVEL 8.3 MG/DL (8.3-10.6); CREATININE FOR GFR 1.64 MG/DL (0.55-1.30); GLOMERULAR FILTRATION RATE 32.5 (>39); POTASSIUM SERUM 6.3 MMOL/L (3.5-5.1)
== END ==
PROVIDERS: ATTEND Internal Medicine
DX: E87.6 Hypokalemia (principal)

== ENCOUNTER → 2023-03-22 | Outpatient (REF) | payer MEDICARE, MEDICAID ==
[~2023-03-22] MED LIST changes: +ALBU8.5H INH; +BREO1INH3 INH; +CALC200T3 PO; +CENT1TAB7 PO; +DIVA1TAB48 PO; +EMOL454C2 TP; +HYDR12CA PO; +SILV50CR TOP; +SODI650T PO; +[UNRECOGNIZED DRUG - CODE] SC; +[UNRECOGNIZED DRUG - CODE] TOP; +[UNRECOGNIZED DRUG - OTHER] TOP
== END ==
PROVIDERS: ATTEND Internal Medicine
DX: E87.6 Hypokalemia (principal); Z53.8 Procedure and treatment not carried out for other reasons

== ENCOUNTER → 2023-04-07 | Outpatient (REF) | payer MEDICARE, MEDICAID ==
[2023-04-07 11:49] LABS: BASO % 0.5 % (0.0-1.0); EOS # 0.1 10^3/uL (0.0-0.5); HEMATOCRIT 31.7 % (36.0-47.0); HEMOGLOBIN 9.9 g/dl (12.0-15.5); LYMPH # 1.3 10^3/uL (1.5-5.0); MEAN CORPUSCULAR HGB CONC 31.2 g/dl (32.0-36.5); MEAN CORPUSCULAR VOLUME 99.4 fl (80.0-96.0); MONO # 0.5 10^3/uL (0.0-0.8); MONO % 7.8 % (2.0-8.0); NEUTROPHILS # 4.4 10^3/uL (1.5-8.5); NEUTROPHILS % 69.4 % (36.0-66.0); PLATELET COUNT, AUTOMATED 123 10^3/uL (150-450); RED BLOOD COUNT 3.19 10^6/uL (4.00-5.40); WHITE BLOOD COUNT 6.3 10^3/uL (4.0-10.0)
[2023-04-07 12:18] LABS: URIC ACID 7.8 MG/DL (3.1-7.8)
[2023-04-07 12:21] LABS: CALCIUM LEVEL 7.9 MG/DL (8.3-10.6); CREATININE FOR GFR 1.7 MG/DL (0.55-1.30); GLOMERULAR FILTRATION RATE 31.2 (>39); PHOSPHORUS LEVEL 3.4 MG/DL (2.4-5.1); POTASSIUM SERUM 4.4 MMOL/L (3.5-5.1); PTH INTACT 131.6 PG/ML (18.5-88.0)
== END ==
PROVIDERS: ATTEND Internal Medicine
DX: N18.30 Chronic kidney disease, stage 3 unspecified (principal); Z79.899 Other long term (current) drug therapy

== ENCOUNTER → 2023-04-14 | Outpatient (REF) | payer MEDICARE, MEDICAID ==
[2023-04-14 10:54] LABS: HEMATOCRIT 34.4 % (36.0-47.0); HEMOGLOBIN 10.8 g/dl (12.0-15.5); MEAN CORPUSCULAR HGB CONC 31.4 g/dl (32.0-36.5); MEAN CORPUSCULAR VOLUME 98.9 fl (80.0-96.0); PLATELET COUNT, AUTOMATED 137 10^3/uL (150-450); RED BLOOD COUNT 3.48 10^6/uL (4.00-5.40); WHITE BLOOD COUNT 8.3 10^3/uL (4.0-10.0)
== END ==
PROVIDERS: ATTEND Internal Medicine
DX: N18.9 Chronic kidney disease, unspecified (principal)

== ENCOUNTER → 2023-05-10 | Outpatient (REF) | payer MEDICARE, MEDICAID ==
[~2023-05-10] MED LIST changes: -HYDR-3911 PO; +HYDR50TA46 PO
[2023-05-10 11:30] LABS: HEMATOCRIT 34.6 % (36.0-47.0); HEMOGLOBIN 11.2 g/dl (12.0-15.5); MEAN CORPUSCULAR HEMOGLOBIN 32.1 pg (27.0-33.0); MEAN CORPUSCULAR HGB CONC 32.4 g/dl (32.0-36.5); MEAN CORPUSCULAR VOLUME 99.1 fl (80.0-96.0); PLATELET COUNT, AUTOMATED 119 10^3/uL (150-450); RED BLOOD COUNT 3.49 10^6/uL (4.00-5.40); WHITE BLOOD COUNT 8.6 10^3/uL (4.0-10.0)
[2023-05-10 12:08] LABS: CALCIUM LEVEL 7.9 MG/DL (8.3-10.6); CREATININE FOR GFR 1.43 MG/DL (0.55-1.30); GLOMERULAR FILTRATION RATE 38.1 (>39); POTASSIUM SERUM 3.9 MMOL/L (3.5-5.1)
== END ==
PROVIDERS: ATTEND Internal Medicine
DX: I50.9 Heart failure, unspecified (principal)

== ENCOUNTER → 2023-05-12 | Outpatient (REF) | payer MEDICARE, MEDICAID ==
[2023-05-12 11:38] LABS: CALCIUM LEVEL 8.3 MG/DL (8.3-10.6); CREATININE FOR GFR 1.78 MG/DL (0.55-1.30); GLOMERULAR FILTRATION RATE 29.6 (>39); POTASSIUM SERUM 4.4 MMOL/L (3.5-5.1)
== END ==
PROVIDERS: ATTEND Internal Medicine
DX: I10 Essential (primary) hypertension (principal)

== ENCOUNTER → 2023-05-17 | Outpatient (REF) | payer MEDICARE, MEDICAID ==
[2023-05-17 12:23] LABS: CALCIUM LEVEL 8.3 MG/DL (8.3-10.6); CREATININE FOR GFR 1.89 MG/DL (0.55-1.30); GLOMERULAR FILTRATION RATE 27.6 (>39); POTASSIUM SERUM 5.1 MMOL/L (3.5-5.1)
== END ==
PROVIDERS: ATTEND Internal Medicine
DX: E87.0 Hyperosmolality and hypernatremia (principal)

== ENCOUNTER → 2023-05-18 | Outpatient (REF) | payer MEDICARE, MEDICAID | PROVIDERS: ATTEND Internal Medicine | DX: M79.89 Other specified soft tissue disorders (principal) ==

== ENCOUNTER → 2023-06-07 | Outpatient (REF) | payer MEDICARE, MEDICAID ==
[~2023-06-07] MED LIST changes: -HYDR-3910 PO; +HYDR25TA87 PO; -MEGE40SU5 PO; +MEGE40SU6 PO
[2023-06-07 11:35] LABS: HEMATOCRIT 29.1 % (36.0-47.0); HEMOGLOBIN 9.2 g/dl (12.0-15.5); MEAN CORPUSCULAR HEMOGLOBIN 32.1 pg (27.0-33.0); MEAN CORPUSCULAR HGB CONC 31.6 g/dl (32.0-36.5); MEAN CORPUSCULAR VOLUME 101.4 fl (80.0-96.0); PLATELET COUNT, AUTOMATED 140 10^3/uL (150-450); RED BLOOD COUNT 2.87 10^6/uL (4.00-5.40); WHITE BLOOD COUNT 8.1 10^3/uL (4.0-10.0)
[2023-06-07 12:02] LABS: CREATININE FOR GFR 1.89 MG/DL (0.55-1.30); GLOMERULAR FILTRATION RATE 27.6 (>39); POTASSIUM SERUM 5.2 MMOL/L (3.5-5.1)
== END ==
PROVIDERS: ATTEND Internal Medicine
DX: D64.9 Anemia, unspecified (principal); I50.9 Heart failure, unspecified

== ENCOUNTER 2023-06-25 13:40 | Observation (INO) | payer MEDICARE, MEDICAID ==
[~2023-06-25] VITALS: Ht 165.1 cm; Wt 85.7 kg
[~2023-06-25 13:40] MED LIST changes: -AMOX500T2 PO; -DOXY100T PO; -HYDR12.55 PO; -NOVOINJ3 SC; -PRED20TA PO; -PROC20004 INJ; -PROC20005 INJ; -SPIR1CAP INH
[2023-06-25] MEDS ORDERED: IPRATROPIUM 0.5MG/ALBUTEROL 2.5MG INH SOL UD 3ML (DUONEB) NEB PRN (14:05)
[2023-06-25 14:27] LABS: VENOUS BASE EXCESS -5.7 (-2.0-2.0); VENOUS HCO3 20.8 MMOL/L (23.0-27.0); VENOUS O2 SATURATION 77.8 % (60.0-80.0); VENOUS PARTIAL PRESSURE CO2 45.6 mmHg (38.0-50.0); VENOUS PARTIAL PRESSURE O2 45.2 mmHg (30.0-50.0); VENOUS PH 7.278 UNITS (7.330-7.430); VENOUS STANDARD HCO3 19.4 MMOL/L; VENOUS TOTAL CO2 22.2 MMOL/L (24.0-28.0)
[2023-06-25 14:40] LABS: BASO % 0.2 % (0.0-1.0); EOS % 0.1 % (0.0-3.0); HEMATOCRIT 29.9 % (36.0-47.0); HEMOGLOBIN 9.4 g/dl (12.0-15.5); LYMPH # 0.5 10^3/uL (1.5-5.0); LYMPH % 4.6 % (24.0-44.0); MEAN CORPUSCULAR HEMOGLOBIN 32.6 pg (27.0-33.0); MEAN CORPUSCULAR HGB CONC 31.4 g/dl (32.0-36.5); MEAN CORPUSCULAR VOLUME 103.8 fl (80.0-96.0); MONO # 0.3 10^3/uL (0.0-0.8); MONO % 3.1 % (2.0-8.0); NEUTROPHILS # 9.4 10^3/uL (1.5-8.5); NEUTROPHILS % 91.1 % (36.0-66.0); PLATELET COUNT, AUTOMATED 150 10^3/uL (150-450); RED BLOOD COUNT 2.88 10^6/uL (4.00-5.40); WHITE BLOOD COUNT 10.3 10^3/uL (4.0-10.0)
[2023-06-25 14:54] LABS: INR 1.19; PROTHROMBIN TIME 14.8 SECONDS (12.5-14.5)
[2023-06-25] MEDS ORDERED: HYDR12.55 PO (14:57)
[2023-06-25] MEDS ORDERED: TORS20TA2 PO (14:57)
[2023-06-25] MEDS ORDERED: PROC20005 INJ (14:57)
[2023-06-25] MEDS: methylPREDNISolone 125MG 2ML VIAL IV ONE (15:06)
[2023-06-25] MEDS: NS 1,000 ML IV ONE ×2 (15:07→17:30)
[2023-06-25] MEDS ORDERED: PRED20TA PO (15:10)
[2023-06-25] MEDS ORDERED: NOVOINJ3 SC (15:29)
[2023-06-25] MEDS ORDERED: PROC20004 INJ (15:29)
[2023-06-25 15:53] LABS: CK-MB VALUE MASS < 1.0 NG/ML (<3.6)
[2023-06-25 15:54] LABS: C REACTIVE PROTEIN QUANTITATIV < 0.40 MG/DL (<1.0)
[2023-06-25 15:55] LABS: CPK CREATINE PHOSPHOKINASE 15 U/L (34-145); MB/CK RELATIVE INDEX 6.66 (< OR =4)
[2023-06-25 15:57] LABS: THYROID STIMULATING HORMONE 0.974 uIU/ML (0.55-4.78)
[2023-06-25 16:05] LABS: ALBUMIN 2.3 G/DL (3.2-5.2); ALKALINE PHOSPHATASE 83 U/L (46-116); ALT/SGPT 22 U/L (7.0-40); AST/SGOT 11 U/L (<34); BILIRUBIN,DIRECT < 0.1 MG/DL (<0.4); BILIRUBIN,TOTAL 0.3 MG/DL (0.3-1.2); BLOOD UREA NITROGEN 94 MG/DL (9-23); CALCIUM LEVEL 8.2 MG/DL (8.3-10.6); CARBON DIOXIDE LEVEL 23 MMOL/L (20-31); CHLORIDE LEVEL 110 MMOL/L (98-107); CREATININE FOR GFR 1.96 MG/DL (0.55-1.30); GLOMERULAR FILTRATION RATE 26.4 (>39); GLUCOSE, FASTING 448 MG/DL (74-106); POTASSIUM SERUM 5.5 MMOL/L (3.5-5.1); SODIUM LEVEL 139 MMOL/L (136-145); TOTAL PROTEIN 5.3 G/DL (5.7-8.2)
[2023-06-25] MEDS ORDERED: HOME MED LIST COMPLETE! XX SCH (16:35)
[2023-06-25] MEDS ORDERED: INSULIN LISPRO (NovoLOG) PER UNIT SC ONE (17:25)
[2023-06-25] MEDS: HumuLIN R (REGULAR) INSULIN (NovoLIN R) **100U/ML** PER UNIT IV STA (17:44)
[2023-06-25] MEDS: DOXYCYCLINE HYCLATE 100 MG in D5W MINI-BAG PLUS 100 ML IV ONE (17:45)
[2023-06-25] MEDS ORDERED: DEXTROSE 50% 50ML SYRINGE IV PRN (18:00)
[2023-06-25] MEDS ORDERED: GLUCAGON INJ 1MG VIAL SC PRN (18:00)
[2023-06-25] MEDS ORDERED: GLUCOSE 4GM CHEW TABLET PO PRN (18:00)
[2023-06-25 18:08] LABS: CK-MB VALUE MASS 1.6 NG/ML (<3.6); MB/CK RELATIVE INDEX 8.88 (< OR =4)
[2023-06-25] MEDS: cefTRIAXone SOD 1 GM in D5W MINI-BAG PLUS 50 ML IV ONE (18:15)
[2023-06-25 18:50] LABS: PROCALCITONIN 0.21 ng/ml
[2023-06-25] MEDS: PATIROMER SORBITEX CALCIUM 8.4 GM POWDER PACKET (VELTASSA) PO ONE (19:00)
[2023-06-25] MEDS: IPRATROPIUM 0.5MG/ALBUTEROL 2.5MG INH SOL UD 3ML (DUONEB) NEB SCH (20:00)
[2023-06-25] MEDS: INSULIN LISPRO (NovoLOG) PER UNIT SC SCH (20:52)
[2023-06-25] MEDS: CARVedilol 6.25 MG TAB PO SCH (21:00)
[2023-06-25] MEDS: ISOSORBIDE DIN. (ISORDIL) 20 MG TAB PO SCH (21:00)
[2023-06-25 22:24] VITALS: BP 172/74; TEMP 97; O2SAT 97
[2023-06-25] MEDS: HEPARIN SOD (PORCINE) 5000UNITS/ML 1ML VIAL/SYRINGE SC SCH (22:32)
[2023-06-25] MEDS: metroNIDAZOLE 500 MG in IV 1 EA IV ONE (22:32)
[2023-06-25] MEDS: ATORVASTATIN 20 MG TAB PO SCH (23:00)
[2023-06-25] MEDS: DIVALPROEX 125 MG TAB PO SCH (23:00)
[2023-06-25] MEDS: hydrALAZINE 20MG/ML 1ML VIAL IV PRN (23:03)
[2023-06-26] VITALS (10 sets, daily range): BP systolic 104–181; BP diastolic 50–79; TEMP 97–98.7; O2SAT 94–99
[2023-06-26] MEDS: PIPERACILLIN/TAZOBACTAM SOD 2.25 GM in D5W MINI-BAG PLUS 50 ML IV SCH (00:22)
[2023-06-26 05:15] LABS: HEMATOCRIT 29.7 % (36.0-47.0); HEMOGLOBIN 9.8 g/dl (12.0-15.5); MEAN CORPUSCULAR HEMOGLOBIN 32.1 pg (27.0-33.0); MEAN CORPUSCULAR VOLUME 97.4 fl (80.0-96.0); PLATELET COUNT, AUTOMATED 131 10^3/uL (150-450); RED BLOOD COUNT 3.05 10^6/uL (4.00-5.40); WHITE BLOOD COUNT 8.8 10^3/uL (4.0-10.0)
[2023-06-26 05:39] LABS: CALCIUM LEVEL 7.9 MG/DL (8.3-10.6); CREATININE FOR GFR 1.73 MG/DL (0.55-1.30); GLOMERULAR FILTRATION RATE 30.5 (>39); POTASSIUM SERUM 4.2 MMOL/L (3.5-5.1)
[2023-06-26] MEDS ORDERED: TORSEMIDE 10 MG TABLET PO SCH (09:00)
[2023-06-26] MEDS: CLOPIDOGREL 75 MG TAB PO SCH (10:14)
[2023-06-26] MEDS: DOXYCYCLINE HYCLATE 100MG TABLET PO SCH (10:14)
[2023-06-26] MEDS: ASPIRIN 81MG ENTERIC TABLET PO SCH (10:14)
[2023-06-26] MEDS: amLODIPine 5 MG TAB PO SCH (10:15)
[2023-06-26] MEDS: FLUoxetine 10 MG CAP PO SCH (10:15)
[2023-06-26] MEDS: FERROUS SULFATE 325MG TAB PO SCH (10:15)
[2023-06-26] MEDS ORDERED: GLUCAGON INJ 1MG VIAL SC PRN (13:05)
[2023-06-26] MEDS ORDERED: DEXTROSE 50% 50ML SYRINGE IV PRN (13:05)
[2023-06-26] MEDS ORDERED: GLUCOSE 4GM CHEW TABLET PO PRN (13:05)
[2023-06-26] MEDS: LEVEMIR (INSULIN DETEMIR) 1 UNITS/0.01ML SC SCH (16:10)
[2023-06-26] MEDS: predniSONE 10MG TAB PO SCH (17:02)
[2023-06-26] MEDS: INSULIN LISPRO (NovoLOG) PER UNIT SC SCH ×2 (17:03→21:00)
[2023-06-27 05:24] VITALS: BP 153/77; TEMP 97.9; O2SAT 97
[2023-06-27 05:52] LABS: BASO % 0.1 % (0.0-1.0); HEMATOCRIT 30.1 % (36.0-47.0); HEMOGLOBIN 9.5 g/dl (12.0-15.5); LYMPH % 13.4 % (24.0-44.0); MEAN CORPUSCULAR HEMOGLOBIN 31.8 pg (27.0-33.0); MEAN CORPUSCULAR HGB CONC 31.6 g/dl (32.0-36.5); MEAN CORPUSCULAR VOLUME 100.7 fl (80.0-96.0); MONO # 0.4 10^3/uL (0.0-0.8); NEUTROPHILS # 5.8 10^3/uL (1.5-8.5); NEUTROPHILS % 79.4 % (36.0-66.0); PLATELET COUNT, AUTOMATED 143 10^3/uL (150-450); RED BLOOD COUNT 2.99 10^6/uL (4.00-5.40); WHITE BLOOD COUNT 7.3 10^3/uL (4.0-10.0)
[2023-06-27 06:15] LABS: CALCIUM LEVEL 7.7 MG/DL (8.3-10.6); CREATININE FOR GFR 1.75 MG/DL (0.55-1.30); GLOMERULAR FILTRATION RATE 30.1 (>39); POTASSIUM SERUM 4.2 MMOL/L (3.5-5.1)
[2023-06-27] MEDS: DIVALPROEX SPRINKLE 125 MG CAP PO SCH (09:08)
[2023-06-27 15:51] VITALS: BP 147/71; TEMP 97.9; O2SAT 99
[2023-06-27 19:43] VITALS: TEMP 97.9; O2SAT 98
[2023-06-28 05:22] VITALS: BP 186/76; TEMP 97.5; O2SAT 93
[2023-06-28 06:01] VITALS: BP 136/80
[2023-06-28 07:24] LABS: CALCIUM LEVEL 7.5 MG/DL (8.3-10.6); CREATININE FOR GFR 2.14 MG/DL (0.55-1.30); GLOMERULAR FILTRATION RATE 23.9 (>39); POTASSIUM SERUM 4.2 MMOL/L (3.5-5.1)
[2023-06-28] MEDS: CALCITRIOL 0.25 MCG CAP (S0169) PO SCH (08:19)
[2023-06-28] MEDS: D5W 1,000 ML IV SCH (08:30)
[2023-06-28 14:00] VITALS: BP 133/58; TEMP 97.2; O2SAT 98
[2023-06-28 17:19] LABS: CALCIUM LEVEL 7.2 MG/DL (8.3-10.6); CREATININE FOR GFR 2.03 MG/DL (0.55-1.30); GLOMERULAR FILTRATION RATE 25.3 (>39); POTASSIUM SERUM 4.6 MMOL/L (3.5-5.1)
[2023-06-28 19:30] VITALS: BP 171/65; TEMP 97.5; O2SAT 100
[2023-06-28 21:00] VITALS: BP 160/83
[2023-06-29 04:03] VITALS: BP 156/82; TEMP 97.5; O2SAT 93
[2023-06-29 07:58] LABS: CALCIUM LEVEL 7.7 MG/DL (8.3-10.6); CREATININE FOR GFR 1.91 MG/DL (0.55-1.30); GLOMERULAR FILTRATION RATE 27.2 (>39); POTASSIUM SERUM 4.3 MMOL/L (3.5-5.1)
[2023-06-29 08:30] VITALS: BP 146/88; TEMP 96.6
[2023-06-29] MEDS ORDERED: DOXY100T PO (09:26)
[2023-06-29] MEDS ORDERED: AMOX500T2 PO (09:26)
[2023-06-29] MEDS ORDERED: SPIR1CAP INH (09:27)
[2023-06-29 09:47] VITALS: BP 146/88
== END 2023-06-29 10:45 ==
LOC: EDBD 13:40 → M ED 13:40 → M ED INP 17:56 → INTOOBSV 17:56 → M PCU 21:08 → M MS5PR 06-26 19:32
PROVIDERS: ADMIT Internal Medicine; ATTEND Internal Medicine
DX: J96.90 Respiratory failure, unspecified, unspecified whether with hypoxia or hypercapnia (principal); E87.5 Hyperkalemia; E87.21 Acute metabolic acidosis; E87.29 Other acidosis; J44.9 Chronic obstructive pulmonary disease, unspecified; I50.30 Unspecified diastolic (congestive) heart failure; N18.30 Chronic kidney disease, stage 3 unspecified; I12.9 Hypertensive chronic kidney disease with stage 1 through stage 4 chronic kidney disease, or unspecified chronic kidney disease; E87.0 Hyperosmolality and hypernatremia; E11.65 Type 2 diabetes mellitus with hyperglycemia; I48.0 Paroxysmal atrial fibrillation; I73.9 Peripheral vascular disease, unspecified; E55.9 Vitamin D deficiency, unspecified; D64.9 Anemia, unspecified; F03.90 Unspecified dementia, unspecified severity, without behavioral disturbance, psychotic disturbance, mood disturbance, and anxiety; L89.152 Pressure ulcer of sacral region, stage 2; Z79.52 Long term (current) use of systemic steroids; Z79.82 Long term (current) use of aspirin; Z79.2 Long term (current) use of antibiotics; Z79.899 Other long term (current) drug therapy; Z79.4 Long term (current) use of insulin; Z79.01 Long term (current) use of anticoagulants; Z91.040 Latex allergy status; Z91.011 Allergy to milk products
CPT/HCPCS: 36415; 70450; 71045; 71250; 80048; 80076; 82140; 82550; 82553; 82803; 83605; 83880; 84145; 84439; 84443; 84484; 85025; 85027; 85610; 86140; 87040; 87426; 92610; 93005; 93041; 94640; 94760; 96361; 96365; 96366; 96367; 96372; 96375; 96376; 99285; G0378; J0360; J0696; J1815; J1836; J2543; J2930; J7512

== ENCOUNTER → 2023-06-25 | Outpatient (REF) | payer MEDICARE, MEDICAID ==
[~2023-06-25] MED LIST changes: +EMOL454C2 TOP; -EMOL454C2 TP; +HYDR12.55 PO; +NOVOINJ3 SC; +PRED20TA PO; +PROC20004 INJ; +PROC20005 INJ
== END ==
PROVIDERS: ATTEND Internal Medicine
DX: J96.90 Respiratory failure, unspecified, unspecified whether with hypoxia or hypercapnia (principal)

== ENCOUNTER → 2023-06-25 | Outpatient (REF) | payer MEDICARE, MEDICAID ==
[~2023-06-25] MED LIST changes: +AMOX500T2 PO; +DOXY100T PO; -SENN1TAB41 PO; +SENN1TAB85 PO; +SPIR1CAP INH
[2023-06-25 13:45] LABS: HEMATOCRIT 29.6 % (36.0-47.0); HEMOGLOBIN 9.3 g/dl (12.0-15.5); MEAN CORPUSCULAR HGB CONC 31.4 g/dl (32.0-36.5); PLATELET COUNT, AUTOMATED 137 10^3/uL (150-450); RED BLOOD COUNT 2.82 10^6/uL (4.00-5.40); WHITE BLOOD COUNT 7.1 10^3/uL (4.0-10.0)
== END ==
PROVIDERS: ATTEND Internal Medicine
DX: R09.02 Hypoxemia (principal); I50.9 Heart failure, unspecified

== ENCOUNTER → 2023-07-07 | Outpatient (REF) | payer MEDICARE, MEDICAID ==
[~2023-07-07] MED LIST changes: +AMOX500T2 PO; +DOXY100T PO; +HYDR12.55 PO; +NOVOINJ3 SC; +PRED20TA PO; +PROC20004 INJ; +PROC20005 INJ; +SPIR1CAP INH
[2023-07-07 10:35] LABS: HEMATOCRIT 29.4 % (36.0-47.0); HEMOGLOBIN 9.1 g/dl (12.0-15.5); MEAN CORPUSCULAR HEMOGLOBIN 32.3 pg (27.0-33.0); MEAN CORPUSCULAR VOLUME 104.3 fl (80.0-96.0); PLATELET COUNT, AUTOMATED 132 10^3/uL (150-450); RED BLOOD COUNT 2.82 10^6/uL (4.00-5.40); WHITE BLOOD COUNT 8.1 10^3/uL (4.0-10.0)
[2023-07-07 11:02] LABS: ALBUMIN 2.1 G/DL (3.2-5.2); CALCIUM LEVEL 7.7 MG/DL (8.3-10.6); CREATININE FOR GFR 1.58 MG/DL (0.55-1.30); GLOMERULAR FILTRATION RATE 33.9 (>39); MAGNESIUM LEVEL 2.2 MG/DL (1.8-2.4); PHOSPHORUS LEVEL 3.7 MG/DL (2.4-5.1); POTASSIUM SERUM 4.6 MMOL/L (3.5-5.1)
[2023-07-07 11:03] LABS: PTH INTACT 82.1 PG/ML (18.5-88.0)
== END ==
PROVIDERS: ATTEND Internal Medicine
DX: N18.9 Chronic kidney disease, unspecified (principal); I50.9 Heart failure, unspecified

== ENCOUNTER → 2023-07-21 | Outpatient (REF) | payer MEDICARE, MEDICAID ==
[2023-07-21 11:05] LABS: BASO # 0.1 10^3/uL (0.0-0.2); BASO % 0.6 % (0.0-1.0); EOS # 0.1 10^3/uL (0.0-0.5); EOS % 0.7 % (0.0-3.0); HEMATOCRIT 27.1 % (36.0-47.0); HEMOGLOBIN 8.4 g/dl (12.0-15.5); LYMPH # 2.3 10^3/uL (1.5-5.0); LYMPH % 27.3 % (24.0-44.0); MEAN CORPUSCULAR HEMOGLOBIN 31.9 pg (27.0-33.0); MONO # 0.8 10^3/uL (0.0-0.8); MONO % 9.1 % (2.0-8.0); NEUTROPHILS # 5.2 10^3/uL (1.5-8.5); NEUTROPHILS % 60.9 % (36.0-66.0); PLATELET COUNT, AUTOMATED 149 10^3/uL (150-450); RED BLOOD COUNT 2.63 10^6/uL (4.00-5.40); WHITE BLOOD COUNT 8.5 10^3/uL (4.0-10.0)
[2023-07-21 11:21] LABS: ALBUMIN 1.9 G/DL (3.2-5.2); CALCIUM LEVEL 8.1 MG/DL (8.3-10.6); CREATININE FOR GFR 1.59 MG/DL (0.55-1.30); GLOMERULAR FILTRATION RATE 33.6 (>39); MAGNESIUM LEVEL 1.7 MG/DL (1.8-2.4); PHOSPHORUS LEVEL 3.4 MG/DL (2.4-5.1); POTASSIUM SERUM 4.5 MMOL/L (3.5-5.1)
[2023-07-21 11:37] LABS: PTH INTACT 146.4 PG/ML (18.5-88.0)
== END ==
PROVIDERS: ATTEND Internal Medicine
DX: D64.9 Anemia, unspecified (principal)

== ENCOUNTER → 2023-08-04 | Outpatient (REF) | payer MEDICARE, MEDICAID ==
[2023-08-04 10:32] LABS: HEMATOCRIT 29.4 % (36.0-47.0); HEMOGLOBIN 9.3 g/dl (12.0-15.5); MEAN CORPUSCULAR HEMOGLOBIN 31.8 pg (27.0-33.0); MEAN CORPUSCULAR HGB CONC 31.6 g/dl (32.0-36.5); MEAN CORPUSCULAR VOLUME 100.7 fl (80.0-96.0); PLATELET COUNT, AUTOMATED 146 10^3/uL (150-450); RED BLOOD COUNT 2.92 10^6/uL (4.00-5.40)
[2023-08-04 10:57] LABS: CALCIUM LEVEL 8.7 MG/DL (8.3-10.6); CREATININE FOR GFR 1.65 MG/DL (0.55-1.30); GLOMERULAR FILTRATION RATE 32.2 (>39); POTASSIUM SERUM 4.3 MMOL/L (3.5-5.1)
== END ==
PROVIDERS: ATTEND Internal Medicine
DX: I50.9 Heart failure, unspecified (principal)

== ENCOUNTER → 2023-08-11 | Outpatient (REF) | payer MEDICARE, MEDICAID ==
[2023-08-11 12:34] LABS: HEMOGLOBIN 11.6 g/dl (12.0-15.5); MEAN CORPUSCULAR HEMOGLOBIN 32.2 pg (27.0-33.0); MEAN CORPUSCULAR HGB CONC 32.2 g/dl (32.0-36.5); PLATELET COUNT, AUTOMATED 159 10^3/uL (150-450); WHITE BLOOD COUNT 7.9 10^3/uL (4.0-10.0)
== END ==
PROVIDERS: ATTEND Internal Medicine
DX: D64.9 Anemia, unspecified (principal)

== ENCOUNTER → 2023-09-06 | Outpatient (REF) | payer MEDICARE, MEDICAID ==
[~2023-09-06] MED LIST changes: +DOXY-440 PO; -DOXY-444 PO; +FLUO-290 PO; -FLUO10CA18 PO
[2023-09-06 11:19] LABS: HEMATOCRIT 30.6 % (36.0-47.0); MEAN CORPUSCULAR HEMOGLOBIN 32.3 pg (27.0-33.0); MEAN CORPUSCULAR HGB CONC 32.7 g/dl (32.0-36.5); MEAN CORPUSCULAR VOLUME 98.7 fl (80.0-96.0); PLATELET COUNT, AUTOMATED 131 10^3/uL (150-450)
[2023-09-06 11:40] LABS: CREATININE FOR GFR 2.18 MG/DL (0.55-1.30); GLOMERULAR FILTRATION RATE 23.3 (>39); POTASSIUM SERUM 4.1 MMOL/L (3.5-5.1)
== END ==
PROVIDERS: ATTEND Internal Medicine
DX: N18.9 Chronic kidney disease, unspecified (principal); D63.1 Anemia in chronic kidney disease; I50.9 Heart failure, unspecified

== ENCOUNTER → 2023-09-08 | Outpatient (REF) | payer MEDICARE, MEDICAID, OTHER | PROVIDERS: ATTEND Internal Medicine | DX: I50.9 Heart failure, unspecified (principal); Z53.8 Procedure and treatment not carried out for other reasons ==

== ENCOUNTER → 2023-09-08 | Outpatient (REF) | payer MEDICARE, MEDICAID ==
[2023-09-08 11:20] LABS: HEMATOCRIT 31.2 % (36.0-47.0); HEMOGLOBIN 10.1 g/dl (12.0-15.5); MEAN CORPUSCULAR HEMOGLOBIN 31.7 pg (27.0-33.0); MEAN CORPUSCULAR HGB CONC 32.4 g/dl (32.0-36.5); MEAN CORPUSCULAR VOLUME 97.8 fl (80.0-96.0); PLATELET COUNT, AUTOMATED 131 10^3/uL (150-450); RED BLOOD COUNT 3.19 10^6/uL (4.00-5.40); WHITE BLOOD COUNT 7.9 10^3/uL (4.0-10.0)
[2023-09-08 11:47] LABS: CALCIUM LEVEL 8.6 MG/DL (8.3-10.6); CREATININE FOR GFR 2.01 MG/DL (0.55-1.30); GLOMERULAR FILTRATION RATE 25.6 (>39); POTASSIUM SERUM 4.8 MMOL/L (3.5-5.1)
== END ==
PROVIDERS: ATTEND Internal Medicine
DX: N18.9 Chronic kidney disease, unspecified (principal); I50.9 Heart failure, unspecified

== ENCOUNTER → 2023-09-13 | Outpatient (REF) | payer MEDICARE, MEDICAID, OTHER ==
[2023-09-13 11:37] LABS: HEMATOCRIT 32.4 % (36.0-47.0); HEMOGLOBIN 10.1 g/dl (12.0-15.5); MEAN CORPUSCULAR HEMOGLOBIN 31.6 pg (27.0-33.0); MEAN CORPUSCULAR HGB CONC 31.2 g/dl (32.0-36.5); MEAN CORPUSCULAR VOLUME 101.3 fl (80.0-96.0); PLATELET COUNT, AUTOMATED 142 10^3/uL (150-450); WHITE BLOOD COUNT 8.6 10^3/uL (4.0-10.0)
[2023-09-13 12:10] LABS: CALCIUM LEVEL 8.2 MG/DL (8.3-10.6); CREATININE FOR GFR 2.06 MG/DL (0.55-1.30); GLOMERULAR FILTRATION RATE 24.9 (>39); POTASSIUM SERUM 5.1 MMOL/L (3.5-5.1)
== END ==
PROVIDERS: ATTEND Internal Medicine
DX: I50.9 Heart failure, unspecified (principal)

== ENCOUNTER → 2023-09-15 | Outpatient (REF) | payer MEDICARE, MEDICAID, OTHER ==
[2023-09-15 13:14] LABS: CALCIUM LEVEL 8.7 MG/DL (8.3-10.6); CREATININE FOR GFR 1.97 MG/DL (0.55-1.30); GLOMERULAR FILTRATION RATE 26.2 (>39); POTASSIUM SERUM 4.3 MMOL/L (3.5-5.1)
== END ==
PROVIDERS: ATTEND Internal Medicine
DX: E86.0 Dehydration (principal)

== ENCOUNTER → 2023-09-27 | Outpatient (REF) | payer MEDICARE, MEDICAID, OTHER | PROVIDERS: ATTEND Internal Medicine | DX: E86.0 Dehydration (principal); Z53.8 Procedure and treatment not carried out for other reasons ==

== ENCOUNTER → 2023-09-27 | Outpatient (REF) | payer MEDICARE, MEDICAID, OTHER ==
[2023-09-27 11:28] LABS: BASO % 0.5 % (0.0-1.0); EOS # 0.1 10^3/uL (0.0-0.5); EOS % 1.7 % (0.0-3.0); HEMATOCRIT 31.8 % (36.0-47.0); HEMOGLOBIN 9.8 g/dl (12.0-15.5); LYMPH # 1.3 10^3/uL (1.5-5.0); LYMPH % 21.2 % (24.0-44.0); MEAN CORPUSCULAR HEMOGLOBIN 31.6 pg (27.0-33.0); MEAN CORPUSCULAR HGB CONC 30.8 g/dl (32.0-36.5); MEAN CORPUSCULAR VOLUME 102.6 fl (80.0-96.0); MONO # 0.6 10^3/uL (0.0-0.8); MONO % 10.1 % (2.0-8.0); NEUTROPHILS # 3.9 10^3/uL (1.5-8.5); PLATELET COUNT, AUTOMATED 102 10^3/uL (150-450)
[2023-09-27 12:03] LABS: ALBUMIN 2.2 G/DL (3.2-5.2); CALCIUM LEVEL 8.9 MG/DL (8.3-10.6); CREATININE FOR GFR 1.92 MG/DL (0.55-1.30); MAGNESIUM LEVEL 2.5 MG/DL (1.8-2.4); PHOSPHORUS LEVEL 4.6 MG/DL (2.4-5.1); POTASSIUM SERUM 5.2 MMOL/L (3.5-5.1); PTH INTACT 88.7 PG/ML (18.5-88.0)
[2023-09-29 10:32] LABS: URIC ACID 7.4 MG/DL (3.1-7.8)
== END ==
PROVIDERS: ATTEND Internal Medicine
DX: N18.9 Chronic kidney disease, unspecified (principal)

== ENCOUNTER → 2023-10-04 | Outpatient (REF) | payer MEDICARE, MEDICAID, OTHER ==
[2023-10-04 12:34] LABS: HEMATOCRIT 29.8 % (36.0-47.0); HEMOGLOBIN 9.3 g/dl (12.0-15.5); MEAN CORPUSCULAR HGB CONC 31.2 g/dl (32.0-36.5); MEAN CORPUSCULAR VOLUME 102.4 fl (80.0-96.0); PLATELET COUNT, AUTOMATED 119 10^3/uL (150-450); RED BLOOD COUNT 2.91 10^6/uL (4.00-5.40)
[2023-10-04 13:01] LABS: CALCIUM LEVEL 8.2 MG/DL (8.3-10.6); CREATININE FOR GFR 1.84 MG/DL (0.55-1.30); GLOMERULAR FILTRATION RATE 28.4 (>39); POTASSIUM SERUM 4.9 MMOL/L (3.5-5.1)
== END ==
PROVIDERS: ATTEND Internal Medicine
DX: I50.9 Heart failure, unspecified (principal); N18.9 Chronic kidney disease, unspecified

== ENCOUNTER → 2023-10-07 | Outpatient (REF) | payer MEDICARE, MEDICAID, OTHER ==
[2023-10-07 15:12] LABS: CALCIUM LEVEL 9.5 MG/DL (8.3-10.6); POTASSIUM SERUM 4.8 MMOL/L (3.5-5.1)
[2023-10-08 12:25] LABS: CREATININE FOR GFR 1.98 MG/DL (0.55-1.30)
[2023-10-08 12:26] LABS: GLOMERULAR FILTRATION RATE 26.1 (>39)
== END ==
PROVIDERS: ATTEND Physician Assistant
DX: N18.9 Chronic kidney disease, unspecified (principal)

== ENCOUNTER → 2023-10-20 | Outpatient (REF) | payer MEDICARE, MEDICAID, OTHER ==
[2023-10-20 09:45] LABS: HEMATOCRIT 32.2 % (36.0-47.0); HEMOGLOBIN 10.1 g/dl (12.0-15.5); MEAN CORPUSCULAR HEMOGLOBIN 31.9 pg (27.0-33.0); MEAN CORPUSCULAR HGB CONC 31.4 g/dl (32.0-36.5); MEAN CORPUSCULAR VOLUME 101.6 fl (80.0-96.0); PLATELET COUNT, AUTOMATED 130 10^3/uL (150-450); RED BLOOD COUNT 3.17 10^6/uL (4.00-5.40)
[2023-10-20 10:10] LABS: CALCIUM LEVEL 8.6 MG/DL (8.3-10.6); CREATININE FOR GFR 1.92 MG/DL (0.55-1.30)
== END ==
PROVIDERS: ATTEND Internal Medicine
DX: N18.9 Chronic kidney disease, unspecified (principal); I50.9 Heart failure, unspecified

== ENCOUNTER → 2023-11-01 | Outpatient (REF) | payer MEDICARE, MEDICAID, OTHER ==
[2023-11-01 11:15] LABS: HEMATOCRIT 31.2 % (36.0-47.0); HEMOGLOBIN 9.4 g/dl (12.0-15.5); MEAN CORPUSCULAR HEMOGLOBIN 31.2 pg (27.0-33.0); MEAN CORPUSCULAR HGB CONC 30.1 g/dl (32.0-36.5); MEAN CORPUSCULAR VOLUME 103.7 fl (80.0-96.0); PLATELET COUNT, AUTOMATED 139 10^3/uL (150-450); RED BLOOD COUNT 3.01 10^6/uL (4.00-5.40); WHITE BLOOD COUNT 5.6 10^3/uL (4.0-10.0)
[2023-11-01 11:44] LABS: CALCIUM LEVEL 8.6 MG/DL (8.3-10.6); CREATININE FOR GFR 2.26 MG/DL (0.55-1.30); GLOMERULAR FILTRATION RATE 22.4 (>39); POTASSIUM SERUM 5.1 MMOL/L (3.5-5.1)
== END ==
PROVIDERS: ATTEND Internal Medicine
DX: N18.9 Chronic kidney disease, unspecified (principal); I50.9 Heart failure, unspecified

== ENCOUNTER → 2023-11-03 | Outpatient (REF) | payer MEDICARE, MEDICAID, OTHER ==
[2023-11-03 10:54] LABS: HEMATOCRIT 30.7 % (36.0-47.0); HEMOGLOBIN 9.4 g/dl (12.0-15.5); MEAN CORPUSCULAR HGB CONC 30.6 g/dl (32.0-36.5); MEAN CORPUSCULAR VOLUME 101.3 fl (80.0-96.0); PLATELET COUNT, AUTOMATED 126 10^3/uL (150-450); RED BLOOD COUNT 3.03 10^6/uL (4.00-5.40); WHITE BLOOD COUNT 4.6 10^3/uL (4.0-10.0)
[2023-11-03 11:32] LABS: ALBUMIN 2.2 G/DL (3.2-5.2); CALCIUM LEVEL 8.9 MG/DL (8.3-10.6); CREATININE FOR GFR 2.08 MG/DL (0.55-1.30); GLOMERULAR FILTRATION RATE 24.6 (>39); PHOSPHORUS LEVEL 3.1 MG/DL (2.4-5.1); POTASSIUM SERUM 5.3 MMOL/L (3.5-5.1)
[2023-11-03 12:47] LABS: PTH INTACT 45.8 PG/ML (18.5-88.0)
== END ==
PROVIDERS: ATTEND Internal Medicine
DX: N18.9 Chronic kidney disease, unspecified (principal)

== ENCOUNTER → 2023-11-08 | Outpatient (REF) | payer MEDICARE, MEDICAID, OTHER ==
[2023-11-08 12:17] LABS: HEMATOCRIT 30.6 % (36.0-47.0); HEMOGLOBIN 9.4 g/dl (12.0-15.5); MEAN CORPUSCULAR HEMOGLOBIN 31.4 pg (27.0-33.0); MEAN CORPUSCULAR HGB CONC 30.7 g/dl (32.0-36.5); MEAN CORPUSCULAR VOLUME 102.3 fl (80.0-96.0); PLATELET COUNT, AUTOMATED 133 10^3/uL (150-450); RED BLOOD COUNT 2.99 10^6/uL (4.00-5.40); WHITE BLOOD COUNT 4.6 10^3/uL (4.0-10.0)
[2023-11-08 12:44] LABS: CALCIUM LEVEL 8.6 MG/DL (8.3-10.6); CREATININE FOR GFR 2.25 MG/DL (0.55-1.30); GLOMERULAR FILTRATION RATE 22.5 (>39); POTASSIUM SERUM 4.4 MMOL/L (3.5-5.1)
== END ==
PROVIDERS: ATTEND Physician Assistant
DX: N18.9 Chronic kidney disease, unspecified (principal)

== ENCOUNTER → 2023-11-26 | Outpatient (REF) | payer MEDICARE, OTHER, MEDICAID ==
[~2023-11-26] MED LIST changes: +FURO10EL PO; +INSUHUMDS SC; +JUVEPOW PO; +LANTINJ4 SC; +PROC1INJ5 IJ; +SANT250O8 TOP; +VELT1POW PO; +[UNRECOGNIZED DRUG - OTHER] EXT
== END ==
PROVIDERS: ATTEND Internal Medicine
DX: R06.02 Shortness of breath (principal); Z53.8 Procedure and treatment not carried out for other reasons

== ENCOUNTER → 2023-11-26 | Outpatient (REF) | payer MEDICARE, MEDICAID, OTHER ==
[2023-11-26 15:43] LABS: HEMATOCRIT 32.1 % (36.0-47.0); HEMOGLOBIN 9.9 g/dl (12.0-15.5); MEAN CORPUSCULAR HEMOGLOBIN 31.5 pg (27.0-33.0); MEAN CORPUSCULAR HGB CONC 30.8 g/dl (32.0-36.5); MEAN CORPUSCULAR VOLUME 102.2 fl (80.0-96.0); PLATELET COUNT, AUTOMATED 154 10^3/uL (150-450); RED BLOOD COUNT 3.14 10^6/uL (4.00-5.40)
[2023-11-26 16:23] LABS: CALCIUM LEVEL 8.2 MG/DL (8.3-10.6); CREATININE FOR GFR 2.7 MG/DL (0.55-1.30); GLOMERULAR FILTRATION RATE 18.2 (>39); POTASSIUM SERUM 4.7 MMOL/L (3.5-5.1)
== END ==
PROVIDERS: ATTEND Physician Assistant
DX: R06.02 Shortness of breath (principal)

== ENCOUNTER → 2023-11-29 | Outpatient (REF) | payer MEDICARE, MEDICAID, OTHER | PROVIDERS: ATTEND Internal Medicine | DX: D64.9 Anemia, unspecified (principal); Z53.8 Procedure and treatment not carried out for other reasons ==

== ENCOUNTER → 2023-12-13 | Outpatient (REF) | payer MEDICARE, MEDICAID, OTHER ==
[~2023-12-13] MED LIST changes: +VALP250S PO
[2023-12-13 11:11] LABS: HEMATOCRIT 28.8 % (36.0-47.0); MEAN CORPUSCULAR HEMOGLOBIN 31.1 pg (27.0-33.0); MEAN CORPUSCULAR HGB CONC 31.3 g/dl (32.0-36.5); MEAN CORPUSCULAR VOLUME 99.7 fl (80.0-96.0); PLATELET COUNT, AUTOMATED 146 10^3/uL (150-450); RED BLOOD COUNT 2.89 10^6/uL (4.00-5.40); WHITE BLOOD COUNT 7.1 10^3/uL (4.0-10.0)
== END ==
PROVIDERS: ATTEND Internal Medicine
DX: N18.9 Chronic kidney disease, unspecified (principal)

== ENCOUNTER → 2023-12-15 | Outpatient (REF) | payer MEDICARE, MEDICAID, OTHER ==
[2023-12-15 10:24] LABS: BASO # 0.1 10^3/uL (0.0-0.2); BASO % 1.2 % (0.0-1.0); EOS # 0.2 10^3/uL (0.0-0.5); EOS % 4.3 % (0.0-3.0); HEMATOCRIT 29.4 % (36.0-47.0); HEMOGLOBIN 9.1 g/dl (12.0-15.5); LYMPH # 1.1 10^3/uL (1.5-5.0); LYMPH % 22.2 % (24.0-44.0); MEAN CORPUSCULAR HEMOGLOBIN 31.1 pg (27.0-33.0); MEAN CORPUSCULAR VOLUME 100.3 fl (80.0-96.0); MONO # 0.5 10^3/uL (0.0-0.8); MONO % 9.5 % (2.0-8.0); NEUTROPHILS % 62.6 % (36.0-66.0); PLATELET COUNT, AUTOMATED 124 10^3/uL (150-450); RED BLOOD COUNT 2.93 10^6/uL (4.00-5.40); WHITE BLOOD COUNT 4.9 10^3/uL (4.0-10.0)
[2023-12-15 10:46] LABS: ALBUMIN 2.3 G/DL (3.2-5.2); CALCIUM LEVEL 8.8 MG/DL (8.3-10.6); CREATININE FOR GFR 3.83 MG/DL (0.55-1.30); GLOMERULAR FILTRATION RATE 12.2 (>39); PHOSPHORUS LEVEL 6.5 MG/DL (2.4-5.1); POTASSIUM SERUM 5.5 MMOL/L (3.5-5.1); PTH INTACT 184.7 PG/ML (18.5-88.0)
== END ==
PROVIDERS: ATTEND Internal Medicine
DX: I50.9 Heart failure, unspecified (principal)

== ENCOUNTER → 2023-12-15 | Outpatient (REF) | payer MEDICARE, OTHER, MEDICAID | PROVIDERS: ATTEND Internal Medicine | DX: I51.7 Cardiomegaly (principal) ==

== ENCOUNTER → 2023-12-20 | Outpatient (REF) | payer MEDICARE, MEDICAID, OTHER ==
[2023-12-20 13:01] LABS: CALCIUM LEVEL 8.9 MG/DL (8.3-10.6); CREATININE FOR GFR 4.92 MG/DL (0.55-1.30); GLOMERULAR FILTRATION RATE 9.1 (>39); POTASSIUM SERUM 5.7 MMOL/L (3.5-5.1)
== END ==
PROVIDERS: ATTEND Internal Medicine
DX: I50.9 Heart failure, unspecified (principal)

== ENCOUNTER → 2023-12-29 | Outpatient (REF) | payer MEDICARE, MEDICAID, OTHER | PROVIDERS: ATTEND Internal Medicine | DX: I50.9 Heart failure, unspecified (principal); Z53.8 Procedure and treatment not carried out for other reasons ==

== ENCOUNTER → 2024-01-05 | Outpatient (REF) | payer MEDICARE, MEDICAID, OTHER ==
[2024-01-05 09:46] LABS: HEMATOCRIT 29.1 % (36.0-47.0); HEMOGLOBIN 8.9 g/dl (12.0-15.5); MEAN CORPUSCULAR HEMOGLOBIN 30.4 pg (27.0-33.0); MEAN CORPUSCULAR HGB CONC 30.6 g/dl (32.0-36.5); MEAN CORPUSCULAR VOLUME 99.3 fl (80.0-96.0); PLATELET COUNT, AUTOMATED 106 10^3/uL (150-450); RED BLOOD COUNT 2.93 10^6/uL (4.00-5.40)
[2024-01-05 10:24] LABS: CREATININE FOR GFR 4.46 MG/DL (0.55-1.30); GLOMERULAR FILTRATION RATE 10.2 (>39); POTASSIUM SERUM 4.5 MMOL/L (3.5-5.1)
== END ==
PROVIDERS: ATTEND Internal Medicine
DX: D64.9 Anemia, unspecified (principal)

== ENCOUNTER → 2024-01-31 | Outpatient (REF) | payer MEDICARE, MEDICAID, OTHER ==
[~2024-01-31] MED LIST changes: +NYST1POW3 TOP; -NYST1POW9 TOP; -VALP250S PO; +VALP250S26 PO
[2024-01-31 10:02] LABS: HEMATOCRIT 34.1 % (36.0-47.0); HEMOGLOBIN 10.3 g/dl (12.0-15.5); MEAN CORPUSCULAR HEMOGLOBIN 29.2 pg (27.0-33.0); MEAN CORPUSCULAR HGB CONC 30.2 g/dl (32.0-36.5); MEAN CORPUSCULAR VOLUME 96.6 fl (80.0-96.0); PLATELET COUNT, AUTOMATED 121 10^3/uL (150-450); RED BLOOD COUNT 3.53 10^6/uL (4.00-5.40); WHITE BLOOD COUNT 5.9 10^3/uL (4.0-10.0)
[2024-01-31 10:31] LABS: CALCIUM LEVEL 9.6 MG/DL (8.3-10.6); CREATININE FOR GFR 5.02 MG/DL (0.55-1.30); GLOMERULAR FILTRATION RATE 8.9 (>39); POTASSIUM SERUM 5.6 MMOL/L (3.5-5.1)
== END ==
PROVIDERS: ATTEND Internal Medicine
DX: D64.9 Anemia, unspecified (principal)